=== PATIENT | male | born 1940 | race Caucasian/White ===

== ENCOUNTER → 2018-03-04 10:23 | Outpatient (CLI) | payer MEDICARE, OTHER, SELFPAY ==
--- NOTE | 2018-03-04 10:29 | DI.MRI.S_ITS ---
PROCEDURE: MR LUMBAR SPINE WO CON INDICATIONS: Lumbar pain TECHNIQUE: Noncontrast sagittal T1 spin echo and T2 fast echo, sagittal STIR, axial T1 and T2 fast spin echo through the lumbar spine. In cases with scoliosis, additional coronal T2 fast spin echo may be performed. COMPARISON: [facility], MR, L-SPINE W&WO CONTRAST, 07/18/2016, 11:13. [facility], MR, L-SPINE WITHOUT CONTRAST, 11/08/2015, 9:50. [facility], CR, L-SPINE 2-3 VIEWS, 10/04/2015, 12:43. FINDINGS: Image quality: Excellent. Alignment and Curvature: There is trace L2-L3, L3-L4 and L4 on L5 retrolisthesis. There is mild reversal lumbar spine curvature. Bone Marrow: Reactive endplate change is noted adjacent to the L2-L3, L3-L4, L4-L5 and L5-S1 discs. Chronic L2 compression fracture resulting in approximately 40% loss of normal intervertebral is stable compared to 07/18/16. Physiologic wedging of the L1 vertebral body is stable. No acute vertebral body compression fractures. Spinal Cord: Conus medullaris terminates at the L1-2 disc level. Visualized cord demonstrates normal signal and size. Paraspinous Soft Tissues: No paravertebral masses. Right renal cysts and left peripelvic renal cysts redemonstrated. L1-L2: Loss of disc signal. Mild, diffuse disc bulge. Mild bilateral facet hypertrophy. Mild narrowing of the central canal secondary to disc disease. Mild right neural foraminal narrowing secondary to disc and facet disease. No neural impingement. L2-L3: Loss of disc signal and height. Moderate, diffuse disc bulge. Mild bilateral facet hypertrophy. Moderate narrowing of the central canal secondary to disc disease and facet hypertrophy. Moderate bilateral neural foraminal narrowing secondary to disc and facet disease. No neural impingement. Postsurgical changes compatible with partial L2 laminectomy noted. L3-L4: Loss of disc signal and slight loss of disc height. Gvuf-mt-ruafokwf facet hypertrophy. Mild ligamentum flavum hypertrophy. Moderate narrowing of the central canal secondary to disc disease and posterior element hypertrophy. Moderate bilateral neural foraminal narrowing secondary to disc and facet disease. No neural impingement. L4-L5: Loss of disc signal and height. Moderate, diffuse disc bulge. Mild to moderate facet and mild ligamentum flavum hypertrophy. Uozroeas-yh-dzvluu narrowing of the central canal secondary to disc disease and posterior element hypertrophy. Severe right and ttexgghj-mh-yuqmfw left neural foraminal narrowing secondary to disc and facet disease with flattening deformity of the exiting right L4 nerve root. L5-S1: Loss of disc signal. Mild, diffuse disc bulge. Moderate bilateral facet hypertrophy. Mild narrowing of the central canal secondary to disc disease and facet hypertrophy. Severe bilateral neural foraminal narrowing secondary to disc and facet disease with flattening deformity exiting L5 nerve roots bilaterally. IMPRESSION: 1. Status post partial L3 laminectomy. 2. Multilevel degenerative disc disease. 3. Multilevel facet arthropathy. 4. Moderate to severe L4-L5 central canal narrowing. Moderate L2-L3 and L3-L4 central canal narrowing. Mild L1-L2 and L5-S1 central canal narrowing. 5. Severe bilateral L5-S1 neural foraminal narrowing. Severe right and anmxanwg-wv-slwnui left L4-L5 neural foraminal narrowing. Moderate bilateral L2-L3 and L3-L4 neural foraminal narrowing. Mild right L1-L2 neural foraminal narrowing. 6. Flattened deformity exiting right L4 nerve root and the exiting bilateral L5 nerve roots secondary to neural foraminal narrowing. Dictated by: Sarita Bay MD, PhD on 03/04/2018 at 14:26 Approved by: Sarita Bay MD, PhD on 03/04/2018 at 14:42
== END ==
PROVIDERS: Family Provider Transplant Surgery; PCP Family Medicine; Visit Provider Family Medicine
DX: M51.36 Other intervertebral disc degeneration, lumbar region (principal); M47.816 Spondylosis without myelopathy or radiculopathy, lumbar region; M99.73 Connective tissue and disc stenosis of intervertebral foramina of lumbar region
CPT/HCPCS: 72148

== ENCOUNTER 2019-02-09 14:30 | Outpatient (RCR) | payer MEDICARE, OTHER, SELFPAY ==
--- NOTE | 2018-09-22 16:41 | PT.OPPOC ---
Current Diagnoses Radiculopathy, lumbar region (09/16/18) Provider Visit Care Team Role Provider Type Carolina Dang DO Primary Care Provider Physician Specialty: Family Practice Address: [address] [place], [address] Email: [email or web address] Chris Fallon MD Family Provider Non-Staff Specialty: Urology Address: [address], [address] Email: Doctor Cecil MD Attending Provider Non-Staff Specialty: Medical Address: Phone: Fax: Email: Plan Of Care PT-OP-T Assessment and Plan Start: 09/16/18 11:20 Freq: Status: Active Protocol: Document 09/16/18 11:20 SAK (Rec: 09/22/18 15:13 SAK [id number]) Physical Therapy Assessment Rehab Potential Rehabilitation Potential Good Evaluation Complexity Number of Personal Factors/Comorbidities 3 or More Number of Body Systems Impaired 3 Clinical Presentation at Evaluation Evolving Impairments Impairments Activity Tolerance Gait Pain Strength Goals Strength Impairment weakness core and hips Short Term Goal (STG) Initiate therapeutic exercise program STG Duration 2 wks Prison Goal (LTG) Improve strength to at least 4 +/5 throughout trunk and LE's LTG Duration 3 months Pain Impairment Pain level 7/10 Short Term Goal (STG) Decrease pain to no greater than 5/10 STG Duration 6 wks Installation Engineer Goal (LTG) Decrease pain to no greater than 3/10 LTG Duration 3 months Gait Impairment Requires use of walker, unable to walk community distances Short Term Goal (STG) Able to ambulate with straight cane short community distances STG Duration 6 wks Installation Engineer Goal (LTG) Patient able to ambulate without device for community distances. LTG Duration 3 months Activity tolerance Impairment Oswestery disability index score 52% Prison Goal (LTG) Decrease Oswestry score to no greater than 30% LTG Duration 3 months Assessment Summary Assessment Patient presents with decline in status and increase in pain s/p lumbar surgery. He has limitations in ROM and strength in trunk and LE's. He would benefit from skilled physical therapy to decrease his pain and improve his ROM, strength, and activity tolerance. Physical Therapy Plan Frequency and Duration Frequency of Treatment 2x/Week Duration of Treatment 3 months Plan of Care Start Date 09/16/18 Plan of Care End Date 01/14/19 Therapeutic Interventions Therapeutic Interventions Aquatic Therapy Home Exercise Program Manual Therapy Neuromuscular Re-education Patient/Caregiver Education Self-Care/Home Management Soft Tissue Mobilization Taping Therapeutic Activities Therapeutic Exercises Modalities Cold Pack/Ice Massage Electric Stimulation Hot Packs Iontophoresis Ultrasound Next Visit Focus/Plan Next Note Type Treatment Note Next Visit Plan Assess response to first PT treatment. Initiate gentle core stabilization, strengthening, flexibility exercises. End with modalities for pain managment. Plan of Care Dates Plan of Care Start Date 09/16/18 Plan of Care End Date 01/14/19 Please Sign and Return: I have reviewed this Plan of Care and certify that the skilled therapy services above are required to meet the patient?s needs. Physician Signature Date Printed Name and Credentials Clinical Instructor Signature Printed Name and Credentials
--- NOTE | 2018-09-22 16:41 | PT.OIE ---
Current Diagnoses Radiculopathy, lumbar region (09/16/18) Past Medical History (Last Updated 05/25/18 @ 13:34 by Jacqui Elizabeth LPN) Thoracic aortic aneurysm (Acute) BPH (benign prostatic hyperplasia) (Chronic) Cervical spine disease (Chronic) Chronic neck pain (Chronic) Coronary artery disease (Chronic) GERD (gastroesophageal reflux disease) (Chronic) Hypertension (Chronic) Atrial fibrillation (Resolved ~1993) Bladder cancer (Resolved) Myocardial infarction (Resolved 1978) Past Surgical History (Last Updated 05/25/18 @ 13:34 by Jacqui Elizabeth LPN) History of abdominal aortic aneurysm repair (Resolved ~2006) Hx of cervical discectomy (Resolved) Hx of coronary artery bypass graft (Resolved ~1980) Hx of laminectomy (Resolved ~04/2016) Hx of transurethral resection of prostate (Resolved) S/P carotid endarterectomy (Resolved ~1990) Provider Visit Care Team Role Provider Type Carolina Dang DO Primary Care Provider Physician Specialty: Family Practice Address: [address] [place] [address], [address] Email: [email or web address] Chris Fallon MD Family Provider Non-Staff Specialty: Urology Address: [address] [place] [address], [id number] Email: Doctor Cecil MD Attending Provider Non-Staff Specialty: Medical Address: Phone: Fax: Email: Physical Therapy Initial Evaluation PT-OP-A Visit Information Start: 09/16/18 11:20 Freq: Status: Active Protocol: Document 09/16/18 11:20 SAK (Rec: 09/16/18 11:22 SAK [id number]) Out-Patient Physical Therapy Visit Information Visit Information Visit Type Initial Evaluation PT-OP-B Current Condition Start: 09/16/18 11:20 Freq: Status: Active Protocol: Document 09/16/18 11:20 SAK (Rec: 09/16/18 11:40 SAK [id number]) Current Condition History of Current Condition Onset Date 07/20/18 Current Complaints bilateral LBP, right great toe numbness History of Current Condition L4-5 medial facetectomy and foraminotomy; reports it was supposed to be day surgery, but had possible CT at end of surgery (controversy over whether had CT vs reaction to medication) but reports hypertensive when coming out of anesthetic. Has not been doing well, pain worse than prior to surgery. States now physician stating he needs right MICHELLE; has seen surgeon but nothing scheduled yet. States he is uncertain about hip surgery both due to feeling most of his pain from back and concern over his recent response to surgery. Walks better with walker; states he limps without use of walker. Some numbness right great toe. Pain worse with standing and walking, minimal with sitting. Takes 2-3 Hydrocodone per day; 1 at a time. Unable to go for walks or golf as previoiusly Prior Treatments and Tests Using heat at home, trying to walk Future Testing and Treatments Planned Sees pain clinic next week to set up appointment for nerve block. Treatment Goals Patient/Caregiver Goals Decrease pain and resume prior activities. 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 PT-OP-F Manual Assessment Start: 09/16/18 11:20 Freq: Status: Active Protocol: Document 09/16/18 11:20 SAK (Rec: 09/22/18 16:40 [facility] [id number]) Manual Assessments Soft Tissue Assessment Soft Tissue Mobility Assessment Increased soft tissue tightness bilateral lumbar paraspinals PT-OP-G Mobility & Gait Start: 09/16/18 11:20 Freq: Status: Active Protocol: Document 09/16/18 11:20 SAK (Rec: 09/22/18 16:40 [facility] [id number]) OP Gait Assessment Assistive Devices Assistive Device Front Wheeled Walker Gait Deviations General Gait Pattern Antalgic Decreased Stride Length Decreased Feet Clearance Flexed Trunk Factors Limiting Gait Function Factors Limiting Gait Function Decreased Activity Tolerance Pain PT-OP-H Neuro Start: 09/16/18 11:20 Freq: Status: Active Protocol: Document 09/16/18 11:20 SAK (Rec: 09/22/18 16:40 [facility] [id number]) Sensation Evaluation Comments Summary Comments decreased to LT right great toe PT-OP-J Posture/Palpation/Skin Start: 09/16/18 11:20 Freq: Status: Active Protocol: Document 09/16/18 11:20 SAK (Rec: 09/22/18 16:40 [facility] [id number]) Posture Evaluation Position Standing Head/C-Spine Posture Forward Head T-Spine Posture Increased Kyphosis L-Spine Posture Decreased Lordosis Weight Distribution Decreased Wt.Bear on (R) Hip Posture (L) Externally Rotated (R) Externally Rotated Skin Assessment Incisional Assessment Incision Appearance/Comments Well-healed with no signs or symptoms of infaction PT-OP-K Range of Motion Start: 09/16/18 11:20 Freq: Status: Active Protocol: Document 09/16/18 11:20 SAK (Rec: 09/22/18 16:40 [facility] [id number]) Lumbar Spine Range of Motion Lumbar Spine Active Degrees Flexion 80 Rotation Left 15 Rotation Right 15 Lateral Flexion Left 30 Lateral Flexion Right 30 Comments -5 deg ext with c/o increased pain Hip Goniometric Range of Motion Hip Measured in Degrees Left Flexion w/Knee Flexed 105 Straight Leg Raise 45 Extension 0 Internal Rotation 25 External Rotation 70 Right Flexion w/Knee Flexed 110 Straight Leg Raise 45 Extension 0 Internal Rotation 15 External Rotation 20 PT-OP-M Strength Start: 09/16/18 11:20 Freq: Status: Active Protocol: Document 09/16/18 11:20 SAK (Rec: 09/22/18 16:40 [facility] [id number]) Trunk Strength Trunk Manual Muscle Testing Core Stabilization Poor core stabilization, difficulty activating TrA and multifidi. Knee Strength Knee Manual Muscle Testing Left Flexion (S2) 5 Normal Extension (L3) 5 Normal Right Flexion (S2) 5 Normal Extension (L3) 5 Normal Ankle/Foot Strength Ankle and Foot Manual Muscle Testing Left Dorsiflexion (L4) 4+ Good+ Plantarflexion (S1) 4+ Good+ Right Dorsiflexion (L4) 4+ Good+ Plantarflexion (S1) 4+ Good+ Toe Strength Toe Manual Muscle Testing Left Great Toe Extension 4+ Good+ Right Great Toe Extension 4- Good- PT-OP-Q Treatments Start: 09/16/18 11:20 Freq: Status: Active Protocol: Document 09/16/18 11:20 SAK (Rec: 09/16/18 16:32 [facility] [id number]) Self-Care/Home Management Treatment Education Patient Education Body Mechanics Pain Management Posture Other Education No bending, lifting, twisting. PT-OP-R Modalities Start: 09/16/18 11:20 Freq: Status: Active Protocol: Document 09/16/18 11:20 [facility] (Rec: 09/16/18 16:32 [facility] [id number]) Electric Stimulation Electric Stimulation Interferential Current (IFC) Body Location bilateral lumbar paraspinals Duration (Minutes) 15 Target/Sweep Sweep High/Low High Patient Position Sitting Combined With Heat/Cold Hot Pack Ultrasound Therapy Treatment Back Treatment Duration (minutes) 8 Patient Position Sidelying Coupling Medium Ultrasound Gel Frequency Setting (mHz) 1 Mode Setting Continuous Duty Cycle 100% Intensity Setting (w/cm2) 1.4 Comments bilateral lumbar paraspinals PT-OP-T Assessment and Plan Start: 09/16/18 11:20 Freq: Status: Active Protocol: Document 09/16/18 11:20 [facility] (Rec: 09/22/18 15:13 [facility] [id number]) Physical Therapy Assessment Rehab Potential Rehabilitation Potential Good Evaluation Complexity Number of Personal Factors/Comorbidities 3 or More Number of Body Systems Impaired 3 Clinical Presentation at Evaluation Evolving Impairments Impairments Activity Tolerance Gait Pain Strength Goals Strength Impairment weakness core and hips Short Term Goal (STG) Initiate therapeutic exercise program STG Duration 2 wks Snf Goal (LTG) Improve strength to at least 4 +/5 throughout trunk and LE's LTG Duration 3 months Pain Impairment Pain level 7/10 Short Term Goal (STG) Decrease pain to no greater than 5/10 STG Duration 6 wks Snf Goal (LTG) Decrease pain to no greater than 3/10 LTG Duration 3 months Gait Impairment Requires use of walker, unable to walk community distances Short Term Goal (STG) Able to ambulate with straight cane short community distances STG Duration 6 wks Scrap Dealer Goal (LTG) Patient able to ambulate without device for community distances. LTG Duration 3 months Activity tolerance Impairment Oswestery disability index score 52% Snf Goal (LTG) Decrease Oswestry score to no greater than 30% LTG Duration 3 months Assessment Summary Assessment Patient presents with decline in status and increase in pain s/p lumbar surgery. He has limitations in ROM and strength in trunk and LE's. He would benefit from skilled physical therapy to decrease his pain and improve his ROM, strength, and activity tolerance. Physical Therapy Plan Frequency and Duration Frequency of Treatment 2x/Week Duration of Treatment 3 months Plan of Care Start Date 09/16/18 Plan of Care End Date 01/14/19 Therapeutic Interventions Therapeutic Interventions Aquatic Therapy Home Exercise Program Manual Therapy Neuromuscular Re-education Patient/Caregiver Education Self-Care/Home Management Soft Tissue Mobilization Taping Therapeutic Activities Therapeutic Exercises Modalities Cold Pack/Ice Massage Electric Stimulation Hot Packs Iontophoresis Ultrasound Next Visit Focus/Plan Next Note Type Treatment Note Next Visit Plan Assess response to first PT treatment. Initiate gentle core stabilization, strengthening, flexibility exercises. End with modalities for pain managment.
--- NOTE | 2018-09-28 16:01 | PT.OTN ---
Current Diagnoses Radiculopathy, lumbar region (09/28/18) Physical Therapy Treatment Note PT-OP-A Visit Information Start: 09/16/18 11:20 Freq: Status: Active Protocol: Document 09/28/18 11:18 [facility] (Rec: 09/28/18 15:58 [facility] [id number]) Out-Patient Physical Therapy Visit Information Visit Information Visit Type Treatment Note Visit Start Time 11:15 Visit Stop Time 12:00 Total Visit Minutes 45 Visit Number 2 Number of UTILITY DIVISION PROJECT MANAGER Visits 0 Precautions Precautions cardiac history PT-OP-B Current Condition Start: 09/16/18 11:20 Freq: Status: Active Protocol: Document 09/16/18 11:20 [facility] (Rec: 09/16/18 11:40 [facility] [id number]) Current Condition History of Current Condition Onset Date 07/20/18 Current Complaints bilateral LBP, right great toe numbness History of Current Condition L4-5 medial facetectomy and foraminotomy; reports it was supposed to be day surgery, but had possible [place] at end of surgery (controversy over whether had [place] vs reaction to medication) but reports hypertensive when coming out of anesthetic. Has not been doing well, pain worse than prior to surgery. States now physician stating he needs right MICHELLE; has seen surgeon but nothing scheduled yet. States he is uncertain about hip surgery both due to feeling most of his pain from back and concern over his recent response to surgery. Walks better with walker; states he limps without use of walker. Some numbness right great toe. Pain worse with standing and walking, minimal with sitting. Takes 2-3 Hydrocodone per day; 1 at a time. Unable to go for walks or golf as previoiusly Prior Treatments and Tests Using heat at home, trying to walk Future Testing and Treatments Planned Sees pain clinic next week to set up appointment for nerve block. Treatment Goals Patient/Caregiver Goals Decrease pain and resume prior activities. 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 PT-OP-C Subjective Start: 09/16/18 11:20 Freq: Status: Active Protocol: Document 09/28/18 11:18 [facility] (Rec: 09/28/18 12:00 [facility] [id number]) OP-PT Subjective Patient Comments Patient Comments Yesterday was first day in months that he has had thigh and hip pain. Had stomach virus for 4 days. States he felt ok after first PT session . Sees pain clinic at in 3 days. PT-OP-F Manual Assessment Start: 09/16/18 11:20 Freq: Status: Active Protocol: Document 09/16/18 11:20 [facility] (Rec: 09/22/18 16:40 [facility] [id number]) Manual Assessments Soft Tissue Assessment Soft Tissue Mobility Assessment Increased soft tissue tightness bilateral lumbar paraspinals PT-OP-G Mobility & Gait Start: 09/16/18 11:20 Freq: Status: Active Protocol: Document 09/16/18 11:20 [facility] (Rec: 09/22/18 16:40 [facility] [id number]) OP Gait Assessment Assistive Devices Assistive Device Front Wheeled Walker Gait Deviations General Gait Pattern Antalgic Decreased Stride Length Decreased Feet Clearance Flexed Trunk Factors Limiting Gait Function Factors Limiting Gait Function Decreased Activity Tolerance Pain PT-OP-H Neuro Start: 09/16/18 11:20 Freq: Status: Active Protocol: Document 09/16/18 11:20 [facility] (Rec: 09/22/18 16:40 [facility] [id number]) Sensation Evaluation Comments Summary Comments decreased to LT right great toe PT-OP-J Posture/Palpation/Skin Start: 09/16/18 11:20 Freq: Status: Active Protocol: Document 09/16/18 11:20 [facility] (Rec: 09/22/18 16:40 [facility] [id number]) Posture Evaluation Position Standing Head/C-Spine Posture Forward Head T-Spine Posture Increased Kyphosis L-Spine Posture Decreased Lordosis Weight Distribution Decreased Wt.Bear on (R) Hip Posture (L) Externally Rotated (R) Externally Rotated Skin Assessment Incisional Assessment Incision Appearance/Comments Well-healed with no signs or symptoms of infaction PT-OP-K Range of Motion Start: 09/16/18 11:20 Freq: Status: Active Protocol: Document 09/16/18 11:20 [facility] (Rec: 09/22/18 16:40 [facility] [id number]) Lumbar Spine Range of Motion Lumbar Spine Active Degrees Flexion 80 Rotation Left 15 Rotation Right 15 Lateral Flexion Left 30 Lateral Flexion Right 30 Comments -5 deg ext with c/o increased pain Hip Goniometric Range of Motion Hip Measured in Degrees Left Flexion w/Knee Flexed 105 Straight Leg Raise 45 Extension 0 Internal Rotation 25 External Rotation 70 Right Flexion w/Knee Flexed 110 Straight Leg Raise 45 Extension 0 Internal Rotation 15 External Rotation 20 PT-OP-M Strength Start: 09/16/18 11:20 Freq: Status: Active Protocol: Document 09/16/18 11:20 [facility] (Rec: 09/22/18 16:40 [facility] [id number]) Trunk Strength Trunk Manual Muscle Testing Core Stabilization Poor core stabilization, difficulty activating TrA and multifidi. Knee Strength Knee Manual Muscle Testing Left Flexion (S2) 5 Normal Extension (L3) 5 Normal Right Flexion (S2) 5 Normal Extension (L3) 5 Normal Ankle/Foot Strength Ankle and Foot Manual Muscle Testing Left Dorsiflexion (L4) 4+ Good+ Plantarflexion (S1) 4+ Good+ Right Dorsiflexion (L4) 4+ Good+ Plantarflexion (S1) 4+ Good+ Toe Strength Toe Manual Muscle Testing Left Great Toe Extension 4+ Good+ Right Great Toe Extension 4- Good- PT-OP-Q Treatments Start: 09/16/18 11:20 Freq: Status: Active Protocol: Document 09/28/18 11:18 [facility] (Rec: 09/28/18 12:00 [facility] [id number]) Cardio Equipment Recumbent Stepper (Sci-Fit) Duration (Minutes) 6 Resistance 1 Seat Position 16 Gym Equipment Shuttle Recovery Bilateral Squats Resistance 50 Shuttle Recovery Platform Stable Reps/Time 10x2 PT-OP-R Modalities Start: 09/16/18 11:20 Freq: Status: Active Protocol: Document 09/28/18 11:18 [facility] (Rec: 09/28/18 16:00 [facility] [id number]) Electric Stimulation Electric Stimulation Interferential Current (IFC) Body Location bilateral lumbar paraspinals Duration (Minutes) 15 Target/Sweep Sweep High/Low High Patient Position Sitting Combined With Heat/Cold Hot Pack Ultrasound Therapy Treatment Back Treatment Duration (minutes) 8 Patient Position Sidelying Coupling Medium Ultrasound Gel Frequency Setting (mHz) 1 Mode Setting Continuous Duty Cycle 100% Intensity Setting (w/cm2) 1.4 Comments bilateral lumbar paraspinals PT-OP-T Assessment and Plan Start: 09/16/18 11:20 Freq: Status: Active Protocol: Document 09/28/18 11:18 [facility] (Rec: 09/28/18 16:00 [facility] [id number]) Physical Therapy Assessment Goals Strength Impairment weakness core and hips Short Term Goal (STG) Initiate therapeutic exercise program STG Duration 2 wks Halfway Goal (LTG) Improve strength to at least 4 +/5 throughout trunk and LE's LTG Duration 3 months Pain Impairment Pain level 7/10 Short Term Goal (STG) Decrease pain to no greater than 5/10 STG Duration 6 wks Halfway Goal (LTG) Decrease pain to no greater than 3/10 LTG Duration 3 months Gait Impairment Requires use of walker, unable to walk community distances Short Term Goal (STG) Able to ambulate with straight cane short community distances STG Duration 6 wks Halfway Goal (LTG) Patient able to ambulate without device for community distances. LTG Duration 3 months Activity tolerance Impairment Oswestery disability index score 52% Halfway Goal (LTG) Decrease Oswestry score to no greater than 30% LTG Duration 3 months Assessment Summary Assessment Decrease pain after PT for a few hours. Physical Therapy Plan Frequency and Duration Frequency of Treatment 2x/Week Duration of Treatment 3 months Plan of Care Start Date 09/16/18 Plan of Care End Date 01/14/19 Therapeutic Interventions Therapeutic Interventions Aquatic Therapy Home Exercise Program Manual Therapy Neuromuscular Re-education Patient/Caregiver Education Self-Care/Home Management Soft Tissue Mobilization Taping Therapeutic Activities Therapeutic Exercises Modalities Cold Pack/Ice Massage Electric Stimulation Hot Packs Iontophoresis Ultrasound Next Visit Focus/Plan Next Note Type Treatment Note Next Visit Plan Continue PT for gentle progression of ther ex, modalities and manual therapy as needed for pain.
--- NOTE | 2018-10-05 15:58 | PT.OTN ---
Current Diagnoses Radiculopathy, lumbar region (10/05/18) Physical Therapy Treatment Note PT-OP-A Visit Information Start: 09/16/18 11:20 Freq: Status: Active Protocol: Document 10/05/18 08:11 [facility] (Rec: 10/05/18 08:50 [facility] [id number]) Out-Patient Physical Therapy Visit Information Visit Information Visit Type Treatment Note Visit Start Time 08:15 Visit Number 3 Number of SCOURING MACHINE OPERATOR Visits 0 Precautions Precautions cardiac history PT-OP-B Current Condition Start: 09/16/18 11:20 Freq: Status: Active Protocol: Document 09/16/18 11:20 [facility] (Rec: 09/16/18 11:40 [facility] [id number]) Current Condition History of Current Condition Onset Date 07/20/18 Current Complaints bilateral LBP, right great toe numbness History of Current Condition L4-5 medial facetectomy and foraminotomy; reports it was supposed to be day surgery, but had possible [place] at end of surgery (controversy over whether had [place] vs reaction to medication) but reports hypertensive when coming out of anesthetic. Has not been doing well, pain worse than prior to surgery. States now physician stating he needs right MICHELLE; has seen surgeon but nothing scheduled yet. States he is uncertain about hip surgery both due to feeling most of his pain from back and concern over his recent response to surgery. Walks better with walker; states he limps without use of walker. Some numbness right great toe. Pain worse with standing and walking, minimal with sitting. Takes 2-3 Hydrocodone per day; 1 at a time. Unable to go for walks or golf as previoiusly Prior Treatments and Tests Using heat at home, trying to walk Future Testing and Treatments Planned Sees pain clinic next week to set up appointment for nerve block. Treatment Goals Patient/Caregiver Goals Decrease pain and resume prior activities. 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 PT-OP-C Subjective Start: 09/16/18 11:20 Freq: Status: Active Protocol: Document 10/05/18 08:11 [facility] (Rec: 10/05/18 08:50 [facility] [id number]) OP-PT Subjective Patient Comments Patient Comments Went to pain clinic 10/01/18 Dr. Pandya; conflict between physicians over whether something needs to be done with his right hip. Standing and walking tolerance improving. PT-OP-F Manual Assessment Start: 09/16/18 11:20 Freq: Status: Active Protocol: Document 09/16/18 11:20 [facility] (Rec: 09/22/18 16:40 [facility] [id number]) Manual Assessments Soft Tissue Assessment Soft Tissue Mobility Assessment Increased soft tissue tightness bilateral lumbar paraspinals PT-OP-G Mobility & Gait Start: 09/16/18 11:20 Freq: Status: Active Protocol: Document 09/16/18 11:20 [facility] (Rec: 09/22/18 16:40 [facility] [id number]) OP Gait Assessment Assistive Devices Assistive Device Front Wheeled Walker Gait Deviations General Gait Pattern Antalgic Decreased Stride Length Decreased Feet Clearance Flexed Trunk Factors Limiting Gait Function Factors Limiting Gait Function Decreased Activity Tolerance Pain PT-OP-H Neuro Start: 09/16/18 11:20 Freq: Status: Active Protocol: Document 09/16/18 11:20 [facility] (Rec: 09/22/18 16:40 [facility] [id number]) Sensation Evaluation Comments Summary Comments decreased to LT right great toe PT-OP-J Posture/Palpation/Skin Start: 09/16/18 11:20 Freq: Status: Active Protocol: Document 09/16/18 11:20 [facility] (Rec: 09/22/18 16:40 [facility] [id number]) Posture Evaluation Position Standing Head/C-Spine Posture Forward Head T-Spine Posture Increased Kyphosis L-Spine Posture Decreased Lordosis Weight Distribution Decreased Wt.Bear on (R) Hip Posture (L) Externally Rotated (R) Externally Rotated Skin Assessment Incisional Assessment Incision Appearance/Comments Well-healed with no signs or symptoms of infaction PT-OP-K Range of Motion Start: 09/16/18 11:20 Freq: Status: Active Protocol: Document 09/16/18 11:20 [facility] (Rec: 09/22/18 16:40 [facility] [id number]) Lumbar Spine Range of Motion Lumbar Spine Active Degrees Flexion 80 Rotation Left 15 Rotation Right 15 Lateral Flexion Left 30 Lateral Flexion Right 30 Comments -5 deg ext with c/o increased pain Hip Goniometric Range of Motion Hip Measured in Degrees Left Flexion w/Knee Flexed 105 Straight Leg Raise 45 Extension 0 Internal Rotation 25 External Rotation 70 Right Flexion w/Knee Flexed 110 Straight Leg Raise 45 Extension 0 Internal Rotation 15 External Rotation 20 PT-OP-M Strength Start: 09/16/18 11:20 Freq: Status: Active Protocol: Document 09/16/18 11:20 [facility] (Rec: 09/22/18 16:40 [facility] [id number]) Trunk Strength Trunk Manual Muscle Testing Core Stabilization Poor core stabilization, difficulty activating TrA and multifidi. Knee Strength Knee Manual Muscle Testing Left Flexion (S2) 5 Normal Extension (L3) 5 Normal Right Flexion (S2) 5 Normal Extension (L3) 5 Normal Ankle/Foot Strength Ankle and Foot Manual Muscle Testing Left Dorsiflexion (L4) 4+ Good+ Plantarflexion (S1) 4+ Good+ Right Dorsiflexion (L4) 4+ Good+ Plantarflexion (S1) 4+ Good+ Toe Strength Toe Manual Muscle Testing Left Great Toe Extension 4+ Good+ Right Great Toe Extension 4- Good- PT-OP-Q Treatments Start: 09/16/18 11:20 Freq: Status: Active Protocol: Document 10/05/18 08:11 [facility] (Rec: 10/05/18 08:50 [facility] [id number]) Cardio Equipment Recumbent Stepper (Sci-Fit) Duration (Minutes) 8 Resistance 1.5 Seat Position 13 Gym Equipment Shuttle Recovery Unilateral Squats Resistance 37 Shuttle Recovery Platform Stable Reps/Time 10x2 Bilateral Squats Resistance 62 Shuttle Recovery Platform Stable Reps/Time 10x2 Therapeutic Exercises Supine Exercises HS stretch Reps/Minutes 2x Comments manual Sitting Exercises row, sh ext Equipment Used L1 TB Reps/Minutes 10x Standing Exercises heel raises Reps/Minutes 10x sidestepping Comments UE support PT-OP-R Modalities Start: 09/16/18 11:20 Freq: Status: Active Protocol: Document 10/05/18 08:11 [facility] (Rec: 10/05/18 08:50 [facility] [id number]) Electric Stimulation Electric Stimulation Interferential Current (IFC) Body Location bilateral lumbar paraspinals Duration (Minutes) 15 Target/Sweep Sweep High/Low High Patient Position Sitting Combined With Heat/Cold Hot Pack Ultrasound Therapy Treatment Back Treatment Duration (minutes) 8 Patient Position Sidelying Coupling Medium Ultrasound Gel Frequency Setting (mHz) 1 Mode Setting Continuous Duty Cycle 100% Intensity Setting (w/cm2) 1.4 Comments bilateral lumbar paraspinals PT-OP-T Assessment and Plan Start: 09/16/18 11:20 Freq: Status: Active Protocol: Document 10/05/18 08:11 [facility] (Rec: 10/05/18 08:50 [facility] [id number]) Physical Therapy Assessment Goals Strength Impairment weakness core and hips Short Term Goal (STG) Initiate therapeutic exercise program STG Duration 2 wks Shelter Goal (LTG) Improve strength to at least 4 +/5 throughout trunk and LE's LTG Duration 3 months Pain Impairment Pain level 7/10 Short Term Goal (STG) Decrease pain to no greater than 5/10 STG Duration 6 wks Shelter Goal (LTG) Decrease pain to no greater than 3/10 LTG Duration 3 months Gait Impairment Requires use of walker, unable to walk community distances Short Term Goal (STG) Able to ambulate with straight cane short community distances STG Duration 6 wks Manager Of Compensation Goal (LTG) Patient able to ambulate without device for community distances. LTG Duration 3 months Activity tolerance Impairment Oswestery disability index score 52% Shelter Goal (LTG) Decrease Oswestry score to no greater than 30% LTG Duration 3 months Physical Therapy Plan Frequency and Duration Frequency of Treatment 2x/Week Duration of Treatment 3 months Plan of Care Start Date 09/16/18 Plan of Care End Date 01/14/19 Therapeutic Interventions Therapeutic Interventions Aquatic Therapy Home Exercise Program Manual Therapy Neuromuscular Re-education Patient/Caregiver Education Self-Care/Home Management Soft Tissue Mobilization Taping Therapeutic Activities Therapeutic Exercises Modalities Cold Pack/Ice Massage Electric Stimulation Hot Packs Iontophoresis Ultrasound Next Visit Focus/Plan Next Note Type Progress Note Next Visit Plan Increase standing ther ex as tolerated for strengthening, core stab
--- NOTE | 2018-10-07 10:11 | PT.OTN ---
Current Diagnoses Radiculopathy, lumbar region (10/07/18) Physical Therapy Treatment Note PT-OP-A Visit Information Start: 09/16/18 11:20 Freq: Status: Active Protocol: Document 10/07/18 08:19 [facility] (Rec: 10/07/18 08:44 [facility] [id number]) Out-Patient Physical Therapy Visit Information Visit Information Visit Type Treatment Note Visit Start Time 08:15 Visit Stop Time 09:12 Total Visit Minutes 57 Visit Number 4 Number of CORRECTION OFFICER REFORMATORY Visits 0 Precautions Precautions cardiac history PT-OP-B Current Condition Start: 09/16/18 11:20 Freq: Status: Active Protocol: Document 09/16/18 11:20 [facility] (Rec: 09/16/18 11:40 [facility] [id number]) Current Condition History of Current Condition Onset Date 07/20/18 Current Complaints bilateral LBP, right great toe numbness History of Current Condition L4-5 medial facetectomy and foraminotomy; reports it was supposed to be day surgery, but had possible AK at end of surgery (controversy over whether had AK vs reaction to medication) but reports hypertensive when coming out of anesthetic. Has not been doing well, pain worse than prior to surgery. States now physician stating he needs right MICHELLE; has seen surgeon but nothing scheduled yet. States he is uncertain about hip surgery both due to feeling most of his pain from back and concern over his recent response to surgery. Walks better with walker; states he limps without use of walker. Some numbness right great toe. Pain worse with standing and walking, minimal with sitting. Takes 2-3 Hydrocodone per day; 1 at a time. Unable to go for walks or golf as previoiusly Prior Treatments and Tests Using heat at home, trying to walk Future Testing and Treatments Planned Sees pain clinic next week to set up appointment for nerve block. Treatment Goals Patient/Caregiver Goals Decrease pain and resume prior activities. 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 PT-OP-C Subjective Start: 09/16/18 11:20 Freq: Status: Active Protocol: Document 10/07/18 08:19 [facility] (Rec: 10/07/18 08:44 [facility] [id number]) OP-PT Subjective Patient Comments Patient Comments Patient c/o fatigue, difficulty standing straight. PT-OP-F Manual Assessment Start: 09/16/18 11:20 Freq: Status: Active Protocol: Document 09/16/18 11:20 [facility] (Rec: 09/22/18 16:40 [facility] [id number]) Manual Assessments Soft Tissue Assessment Soft Tissue Mobility Assessment Increased soft tissue tightness bilateral lumbar paraspinals PT-OP-G Mobility & Gait Start: 09/16/18 11:20 Freq: Status: Active Protocol: Document 09/16/18 11:20 [facility] (Rec: 09/22/18 16:40 [facility] [id number]) OP Gait Assessment Assistive Devices Assistive Device Front Wheeled Walker Gait Deviations General Gait Pattern Antalgic Decreased Stride Length Decreased Feet Clearance Flexed Trunk Factors Limiting Gait Function Factors Limiting Gait Function Decreased Activity Tolerance Pain PT-OP-H Neuro Start: 09/16/18 11:20 Freq: Status: Active Protocol: Document 09/16/18 11:20 [facility] (Rec: 09/22/18 16:40 [facility] [id number]) Sensation Evaluation Comments Summary Comments decreased to LT right great toe PT-OP-J Posture/Palpation/Skin Start: 09/16/18 11:20 Freq: Status: Active Protocol: Document 09/16/18 11:20 [facility] (Rec: 09/22/18 16:40 [facility] [id number]) Posture Evaluation Position Standing Head/C-Spine Posture Forward Head T-Spine Posture Increased Kyphosis L-Spine Posture Decreased Lordosis Weight Distribution Decreased Wt.Bear on (R) Hip Posture (L) Externally Rotated (R) Externally Rotated Skin Assessment Incisional Assessment Incision Appearance/Comments Well-healed with no signs or symptoms of infaction PT-OP-K Range of Motion Start: 09/16/18 11:20 Freq: Status: Active Protocol: Document 09/16/18 11:20 [facility] (Rec: 09/22/18 16:40 [facility] [id number]) Lumbar Spine Range of Motion Lumbar Spine Active Degrees Flexion 80 Rotation Left 15 Rotation Right 15 Lateral Flexion Left 30 Lateral Flexion Right 30 Comments -5 deg ext with c/o increased pain Hip Goniometric Range of Motion Hip Measured in Degrees Left Flexion w/Knee Flexed 105 Straight Leg Raise 45 Extension 0 Internal Rotation 25 External Rotation 70 Right Flexion w/Knee Flexed 110 Straight Leg Raise 45 Extension 0 Internal Rotation 15 External Rotation 20 PT-OP-M Strength Start: 09/16/18 11:20 Freq: Status: Active Protocol: Document 09/16/18 11:20 [facility] (Rec: 09/22/18 16:40 [facility] [id number]) Trunk Strength Trunk Manual Muscle Testing Core Stabilization Poor core stabilization, difficulty activating TrA and multifidi. Knee Strength Knee Manual Muscle Testing Left Flexion (S2) 5 Normal Extension (L3) 5 Normal Right Flexion (S2) 5 Normal Extension (L3) 5 Normal Ankle/Foot Strength Ankle and Foot Manual Muscle Testing Left Dorsiflexion (L4) 4+ Good+ Plantarflexion (S1) 4+ Good+ Right Dorsiflexion (L4) 4+ Good+ Plantarflexion (S1) 4+ Good+ Toe Strength Toe Manual Muscle Testing Left Great Toe Extension 4+ Good+ Right Great Toe Extension 4- Good- PT-OP-Q Treatments Start: 09/16/18 11:20 Freq: Status: Active Protocol: Document 10/07/18 08:19 [facility] (Rec: 10/07/18 08:44 [facility] [id number]) Cardio Equipment Recumbent Stepper (Sci-Fit) Duration (Minutes) 10 Resistance 1.5 Seat Position 13 Gym Equipment Shuttle Recovery Unilateral Squats Resistance 37 Shuttle Recovery Platform Stable Reps/Time 10x2 Bilateral Squats Resistance 62 Shuttle Recovery Platform Stable Reps/Time 10x2 Therapeutic Exercises Sitting Exercises row, sh ext Equipment Used L1 TB Reps/Minutes 10x Standing Exercises shallow squat Reps/Minutes 10x heel raises Reps/Minutes 10x sidestepping Equipment Used yellow TB Comments UE support PT-OP-R Modalities Start: 09/16/18 11:20 Freq: Status: Active Protocol: Document 10/07/18 08:19 [facility] (Rec: 10/07/18 10:11 [facility] [id number]) Electric Stimulation Electric Stimulation Interferential Current (IFC) Body Location bilateral lumbar paraspinals Duration (Minutes) 15 Target/Sweep Sweep High/Low High Patient Position Sitting Combined With Heat/Cold Hot Pack Ultrasound Therapy Treatment Back Treatment Duration (minutes) 8 Patient Position Sidelying Coupling Medium Ultrasound Gel Frequency Setting (mHz) 1 Mode Setting Continuous Duty Cycle 100% Intensity Setting (w/cm2) 1.4 Comments bilateral lumbar paraspinals PT-OP-T Assessment and Plan Start: 09/16/18 11:20 Freq: Status: Active Protocol: Document 10/07/18 08:19 [facility] (Rec: 10/07/18 10:11 [facility] [id number]) Physical Therapy Assessment Goals Strength Impairment weakness core and hips Short Term Goal (STG) Initiate therapeutic exercise program STG Duration 2 wks Mcc Goal (LTG) Improve strength to at least 4 +/5 throughout trunk and LE's LTG Duration 3 months Pain Impairment Pain level 7/10 Short Term Goal (STG) Decrease pain to no greater than 5/10 STG Duration 6 wks Mcc Goal (LTG) Decrease pain to no greater than 3/10 LTG Duration 3 months Gait Impairment Requires use of walker, unable to walk community distances Short Term Goal (STG) Able to ambulate with straight cane short community distances STG Duration 6 wks Intelligence Support Officer Goal (LTG) Patient able to ambulate without device for community distances. LTG Duration 3 months Activity tolerance Impairment Oswestery disability index score 52% Intelligence Support Officer Goal (LTG) Decrease Oswestry score to no greater than 30% LTG Duration 3 months Assessment Summary Assessment Patient requires cues for decreasing use of walker and correction of posture to more upright; today noting increased leaning forward putting increased pressure on walker. Patient reports increased pain without use of walker. Physical Therapy Plan Frequency and Duration Frequency of Treatment 2x/Week Duration of Treatment 3 months Plan of Care Start Date 09/16/18 Plan of Care End Date 01/14/19 Therapeutic Interventions Therapeutic Interventions Aquatic Therapy Home Exercise Program Manual Therapy Neuromuscular Re-education Patient/Caregiver Education Self-Care/Home Management Soft Tissue Mobilization Taping Therapeutic Activities Therapeutic Exercises Modalities Cold Pack/Ice Massage Electric Stimulation Hot Packs Iontophoresis Ultrasound Next Visit Focus/Plan Next Note Type Progress Note Next Visit Plan Increase standing ther ex as tolerated for strengthening, core stab, gait training.
--- NOTE | 2018-10-28 10:11 | PT.OTN ---
Current Diagnoses Radiculopathy, lumbar region (10/27/18) Physical Therapy Treatment Note PT-OP-A Visit Information Start: 09/16/18 11:20 Freq: Status: Active Protocol: Document 10/27/18 08:15 [facility] (Rec: 10/27/18 09:06 [facility] [id number]) Out-Patient Physical Therapy Visit Information Visit Information Visit Type Treatment Note Visit Start Time 08:15 Visit Stop Time 09:12 Total Visit Minutes 57 Visit Number 5 Number of LOADING CHECKER Visits 0 Precautions Precautions cardiac history PT-OP-B Current Condition Start: 09/16/18 11:20 Freq: Status: Active Protocol: Document 09/16/18 11:20 [facility] (Rec: 09/16/18 11:40 [facility] [id number]) Current Condition History of Current Condition Onset Date 07/20/18 Current Complaints bilateral LBP, right great toe numbness History of Current Condition L4-5 medial facetectomy and foraminotomy; reports it was supposed to be day surgery, but had possible HI at end of surgery (controversy over whether had HI vs reaction to medication) but reports hypertensive when coming out of anesthetic. Has not been doing well, pain worse than prior to surgery. States now physician stating he needs right MICHELLE; has seen surgeon but nothing scheduled yet. States he is uncertain about hip surgery both due to feeling most of his pain from back and concern over his recent response to surgery. Walks better with walker; states he limps without use of walker. Some numbness right great toe. Pain worse with standing and walking, minimal with sitting. Takes 2-3 Hydrocodone per day; 1 at a time. Unable to go for walks or golf as previoiusly Prior Treatments and Tests Using heat at home, trying to walk Future Testing and Treatments Planned Sees pain clinic next week to set up appointment for nerve block. Treatment Goals Patient/Caregiver Goals Decrease pain and resume prior activities. 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 PT-OP-C Subjective Start: 09/16/18 11:20 Freq: Status: Active Protocol: Document 10/27/18 08:15 [facility] (Rec: 10/27/18 09:06 [facility] [id number]) OP-PT Subjective Patient Comments Patient Comments Tired, poor sleep last night, having right hip pain. Got new walker, needs help with fit. Pain clinic at for injection. Frustrated with continued pain. PT-OP-F Manual Assessment Start: 09/16/18 11:20 Freq: Status: Active Protocol: Document 09/16/18 11:20 [facility] (Rec: 09/22/18 16:40 [facility] [id number]) Manual Assessments Soft Tissue Assessment Soft Tissue Mobility Assessment Increased soft tissue tightness bilateral lumbar paraspinals PT-OP-G Mobility & Gait Start: 09/16/18 11:20 Freq: Status: Active Protocol: Document 09/16/18 11:20 [facility] (Rec: 09/22/18 16:40 [facility] [id number]) OP Gait Assessment Assistive Devices Assistive Device Front Wheeled Walker Gait Deviations General Gait Pattern Antalgic Decreased Stride Length Decreased Feet Clearance Flexed Trunk Factors Limiting Gait Function Factors Limiting Gait Function Decreased Activity Tolerance Pain PT-OP-H Neuro Start: 09/16/18 11:20 Freq: Status: Active Protocol: Document 09/16/18 11:20 [facility] (Rec: 09/22/18 16:40 [facility] [id number]) Sensation Evaluation Comments Summary Comments decreased to LT right great toe PT-OP-J Posture/Palpation/Skin Start: 09/16/18 11:20 Freq: Status: Active Protocol: Document 09/16/18 11:20 [facility] (Rec: 09/22/18 16:40 [facility] [id number]) Posture Evaluation Position Standing Head/C-Spine Posture Forward Head T-Spine Posture Increased Kyphosis L-Spine Posture Decreased Lordosis Weight Distribution Decreased Wt.Bear on (R) Hip Posture (L) Externally Rotated (R) Externally Rotated Skin Assessment Incisional Assessment Incision Appearance/Comments Well-healed with no signs or symptoms of infaction PT-OP-K Range of Motion Start: 09/16/18 11:20 Freq: Status: Active Protocol: Document 09/16/18 11:20 [facility] (Rec: 09/22/18 16:40 [facility] [id number]) Lumbar Spine Range of Motion Lumbar Spine Active Degrees Flexion 80 Rotation Left 15 Rotation Right 15 Lateral Flexion Left 30 Lateral Flexion Right 30 Comments -5 deg ext with c/o increased pain Hip Goniometric Range of Motion Hip Measured in Degrees Left Flexion w/Knee Flexed 105 Straight Leg Raise 45 Extension 0 Internal Rotation 25 External Rotation 70 Right Flexion w/Knee Flexed 110 Straight Leg Raise 45 Extension 0 Internal Rotation 15 External Rotation 20 PT-OP-M Strength Start: 09/16/18 11:20 Freq: Status: Active Protocol: Document 09/16/18 11:20 [facility] (Rec: 09/22/18 16:40 [facility] [id number]) Trunk Strength Trunk Manual Muscle Testing Core Stabilization Poor core stabilization, difficulty activating TrA and multifidi. Knee Strength Knee Manual Muscle Testing Left Flexion (S2) 5 Normal Extension (L3) 5 Normal Right Flexion (S2) 5 Normal Extension (L3) 5 Normal Ankle/Foot Strength Ankle and Foot Manual Muscle Testing Left Dorsiflexion (L4) 4+ Good+ Plantarflexion (S1) 4+ Good+ Right Dorsiflexion (L4) 4+ Good+ Plantarflexion (S1) 4+ Good+ Toe Strength Toe Manual Muscle Testing Left Great Toe Extension 4+ Good+ Right Great Toe Extension 4- Good- PT-OP-Q Treatments Start: 09/16/18 11:20 Freq: Status: Active Protocol: Document 10/27/18 08:15 [facility] (Rec: 10/27/18 09:06 [facility] [id number]) Cardio Equipment Recumbent Stepper (Sci-Fit) Duration (Minutes) 10 Resistance 2.0 Seat Position 13 Gym Equipment Shuttle Recovery Unilateral Squats Resistance 37 Shuttle Recovery Platform Stable Reps/Time 10x2 Bilateral Squats Resistance 62 Shuttle Recovery Platform Stable Reps/Time 10x2 Therapeutic Exercises Supine Exercises SKTC Reps/Minutes 2x gluteal sets Reps/Minutes 10x hip ab/ER Reps/Minutes 10x pillow squeeze Reps/Minutes 10x abdominal corseting Reps/Minutes 5x HS stretch Reps/Minutes 3x Comments active Sidelying Exercises clamshell Reps/Minutes 10x Sitting Exercises row, sh ext Equipment Used L1 TB Reps/Minutes 10x Self-Care/Home Management Treatment Education Patient Education Body Mechanics Pain Management Posture Other Education updated HEP PT-OP-R Modalities Start: 09/16/18 11:20 Freq: Status: Active Protocol: Document 10/27/18 08:15 [facility] (Rec: 10/28/18 10:11 [facility] [id number]) Electric Stimulation Electric Stimulation Interferential Current (IFC) Body Location bilateral lumbar paraspinals Duration (Minutes) 15 Target/Sweep Sweep High/Low High Patient Position Sitting Combined With Heat/Cold Hot Pack Ultrasound Therapy Treatment Back Treatment Duration (minutes) 8 Patient Position Sidelying Coupling Medium Ultrasound Gel Frequency Setting (mHz) 1 Mode Setting Continuous Duty Cycle 100% Intensity Setting (w/cm2) 1.4 Comments bilateral lumbar paraspinals PT-OP-T Assessment and Plan Start: 09/16/18 11:20 Freq: Status: Active Protocol: Document 10/27/18 08:15 [facility] (Rec: 10/28/18 10:11 [facility] [id number]) Physical Therapy Assessment Goals Strength Impairment weakness core and hips Short Term Goal (STG) Initiate therapeutic exercise program STG Duration 2 wks Cloth Cutter Goal (LTG) Improve strength to at least 4 +/5 throughout trunk and LE's LTG Duration 3 months Pain Impairment Pain level 7/10 Short Term Goal (STG) Decrease pain to no greater than 5/10 STG Duration 6 wks Snf Goal (LTG) Decrease pain to no greater than 3/10 LTG Duration 3 months Gait Impairment Requires use of walker, unable to walk community distances Short Term Goal (STG) Able to ambulate with straight cane short community distances STG Duration 6 wks Cloth Cutter Goal (LTG) Patient able to ambulate without device for community distances. LTG Duration 3 months Activity tolerance Impairment Oswestery disability index score 52% Snf Goal (LTG) Decrease Oswestry score to no greater than 30% LTG Duration 3 months Assessment Summary Assessment Fit patient with new 4WW with good fit achieved. Patient continues to have no pain while sitting but have low tolerance for standing and walking due to pain. Patient' s forward flexed posture causes increased tension in paraspinals contributing to his pain, but reports pain with attempts to achieve more neutral position. Poor compliance with HEP. Recommended aquatic PT to patient; he has previously not been receptive but due to persistent pain he is now receptive to trial. Physical Therapy Plan Frequency and Duration Frequency of Treatment 2x/Week Duration of Treatment 3 months Plan of Care Start Date 09/16/18 Plan of Care End Date 01/14/19 Therapeutic Interventions Therapeutic Interventions Aquatic Therapy Home Exercise Program Manual Therapy Neuromuscular Re-education Patient/Caregiver Education Self-Care/Home Management Soft Tissue Mobilization Taping Therapeutic Activities Therapeutic Exercises Modalities Cold Pack/Ice Massage Electric Stimulation Hot Packs Iontophoresis Ultrasound Next Visit Focus/Plan Next Note Type Treatment Note Next Visit Plan aquatic therapy, encourage increased HEP compliance, progress ther ex for strengthening, flexibility and core stabilization as tolerated.
--- NOTE | 2018-11-01 16:45 | PT.OTN ---
Current Diagnoses Radiculopathy, lumbar region (11/01/18) Physical Therapy Treatment Note PT-OP-A Visit Information Start: 09/16/18 11:20 Freq: Status: Active Protocol: Document 11/01/18 11:00 [facility] (Rec: 11/01/18 16:43 [facility] [id number]) Out-Patient Physical Therapy Visit Information Visit Information Visit Type Aquatic Treatment Note Visit Start Time 11:00 Visit Stop Time 11:45 Total Visit Minutes 45 Visit Number 6/10 Number of APPLICATIONS MANAGER Visits 0 PT-OP-B Current Condition Start: 09/16/18 11:20 Freq: Status: Active Protocol: Document 09/16/18 11:20 [facility] (Rec: 09/16/18 11:40 [facility] [id number]) Current Condition History of Current Condition Onset Date 07/20/18 Current Complaints bilateral LBP, right great toe numbness History of Current Condition L4-5 medial facetectomy and foraminotomy; reports it was supposed to be day surgery, but had possible ME at end of surgery (controversy over whether had ME vs reaction to medication) but reports hypertensive when coming out of anesthetic. Has not been doing well, pain worse than prior to surgery. States now physician stating he needs right MICHELLE; has seen surgeon but nothing scheduled yet. States he is uncertain about hip surgery both due to feeling most of his pain from back and concern over his recent response to surgery. Walks better with walker; states he limps without use of walker. Some numbness right great toe. Pain worse with standing and walking, minimal with sitting. Takes 2-3 Hydrocodone per day; 1 at a time. Unable to go for walks or golf as previoiusly Prior Treatments and Tests Using heat at home, trying to walk Future Testing and Treatments Planned Sees pain clinic next week to set up appointment for nerve block. Treatment Goals Patient/Caregiver Goals Decrease pain and resume prior activities. 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 PT-OP-C Subjective Start: 09/16/18 11:20 Freq: Status: Active Protocol: Document 11/01/18 11:43 [facility]AK (Rec: 11/01/18 16:44 [facility] [id number]) OP-PT Subjective Patient Comments Patient Comments a little apprehensive about aquatic therapy but willing to give it a try. Patient Questionnaires ABC- Activity Specific Balance Confidence Scale ABC Functional Impairment 60 to <80% Impaired (Score 21- 40) PT-OP-F Manual Assessment Start: 09/16/18 11:20 Freq: Status: Active Protocol: Document 09/16/18 11:20 [facility]AK (Rec: 09/22/18 16:40 [facility] [id number]) Manual Assessments Soft Tissue Assessment Soft Tissue Mobility Assessment Increased soft tissue tightness bilateral lumbar paraspinals PT-OP-G Mobility & Gait Start: 09/16/18 11:20 Freq: Status: Active Protocol: Document 09/16/18 11:20 [facility]AK (Rec: 09/22/18 16:40 [facility] [id number]) OP Gait Assessment Assistive Devices Assistive Device Front Wheeled Walker Gait Deviations General Gait Pattern Antalgic Decreased Stride Length Decreased Feet Clearance Flexed Trunk Factors Limiting Gait Function Factors Limiting Gait Function Decreased Activity Tolerance Pain PT-OP-H Neuro Start: 09/16/18 11:20 Freq: Status: Active Protocol: Document 09/16/18 11:20 [facility] (Rec: 09/22/18 16:40 [facility] [id number]) Sensation Evaluation Comments Summary Comments decreased to LT right great toe PT-OP-J Posture/Palpation/Skin Start: 09/16/18 11:20 Freq: Status: Active Protocol: Document 09/16/18 11:20 [facility]AK (Rec: 09/22/18 16:40 [facility] [id number]) Posture Evaluation Position Standing Head/C-Spine Posture Forward Head T-Spine Posture Increased Kyphosis L-Spine Posture Decreased Lordosis Weight Distribution Decreased Wt.Bear on (R) Hip Posture (L) Externally Rotated (R) Externally Rotated Skin Assessment Incisional Assessment Incision Appearance/Comments Well-healed with no signs or symptoms of infaction PT-OP-K Range of Motion Start: 09/16/18 11:20 Freq: Status: Active Protocol: Document 09/16/18 11:20 [facility]AK (Rec: 09/22/18 16:40 [facility] [id number]) Lumbar Spine Range of Motion Lumbar Spine Active Degrees Flexion 80 Rotation Left 15 Rotation Right 15 Lateral Flexion Left 30 Lateral Flexion Right 30 Comments -5 deg ext with c/o increased pain Hip Goniometric Range of Motion Hip Measured in Degrees Left Flexion w/Knee Flexed 105 Straight Leg Raise 45 Extension 0 Internal Rotation 25 External Rotation 70 Right Flexion w/Knee Flexed 110 Straight Leg Raise 45 Extension 0 Internal Rotation 15 External Rotation 20 PT-OP-M Strength Start: 09/16/18 11:20 Freq: Status: Active Protocol: Document 09/16/18 11:20 [facility] (Rec: 09/22/18 16:40 [facility] [id number]) Trunk Strength Trunk Manual Muscle Testing Core Stabilization Poor core stabilization, difficulty activating TrA and multifidi. Knee Strength Knee Manual Muscle Testing Left Flexion (S2) 5 Normal Extension (L3) 5 Normal Right Flexion (S2) 5 Normal Extension (L3) 5 Normal Ankle/Foot Strength Ankle and Foot Manual Muscle Testing Left Dorsiflexion (L4) 4+ Good+ Plantarflexion (S1) 4+ Good+ Right Dorsiflexion (L4) 4+ Good+ Plantarflexion (S1) 4+ Good+ Toe Strength Toe Manual Muscle Testing Left Great Toe Extension 4+ Good+ Right Great Toe Extension 4- Good- PT-OP-Q Treatments Start: 09/16/18 11:20 Freq: Status: Active Protocol: Document 10/27/18 08:15 [facility] (Rec: 10/27/18 09:06 [facility] [id number]) Cardio Equipment Recumbent Stepper (Sci-Fit) Duration (Minutes) 10 Resistance 2.0 Seat Position 13 Gym Equipment Shuttle Recovery Unilateral Squats Resistance 37 Shuttle Recovery Platform Stable Reps/Time 10x2 Bilateral Squats Resistance 62 Shuttle Recovery Platform Stable Reps/Time 10x2 Therapeutic Exercises Supine Exercises SKTC Reps/Minutes 2x gluteal sets Reps/Minutes 10x hip ab/ER Reps/Minutes 10x pillow squeeze Reps/Minutes 10x abdominal corseting Reps/Minutes 5x HS stretch Reps/Minutes 3x Comments active Sidelying Exercises clamshell Reps/Minutes 10x Sitting Exercises row, sh ext Equipment Used L1 TB Reps/Minutes 10x Self-Care/Home Management Treatment Education Patient Education Body Mechanics Pain Management Posture Other Education updated HEP PT-OP-R Modalities Start: 09/16/18 11:20 Freq: Status: Active Protocol: Document 10/27/18 08:15 [facility] (Rec: 10/28/18 10:11 [facility] [id number]) Electric Stimulation Electric Stimulation Interferential Current (IFC) Body Location bilateral lumbar paraspinals Duration (Minutes) 15 Target/Sweep Sweep High/Low High Patient Position Sitting Combined With Heat/Cold Hot Pack Ultrasound Therapy Treatment Back Treatment Duration (minutes) 8 Patient Position Sidelying Coupling Medium Ultrasound Gel Frequency Setting (mHz) 1 Mode Setting Continuous Duty Cycle 100% Intensity Setting (w/cm2) 1.4 Comments bilateral lumbar paraspinals PT-OP-S Aquatic Treatment Start: 09/16/18 11:20 Freq: Status: Active Protocol: Document 11/01/18 11:00 [facility] (Rec: 11/01/18 16:43 [facility] [id number]) Aquatics Treatment Pool Entry/Exit Pool Entry/Exit Method Stairs Assistance Standby Assistance Verbal Cues Water Walking forward, side Water Level Chest Level Walking Equipment handheld, floating parallel bars, kenaitze foam float Level of Assistance Standby Assistance Moderate Assistance Lower Extremity Exercises knee flex/ext Reps/Duration 10x Comments mod UE support squats Reps/Duration 10x Comments mod UE support circles Reps/Duration 10x Comments mod UE support hip flex/ext Reps/Duration 10x Comments mod UE support hip ab/ad Reps/Duration 10x Comments mod UE support heel toe raise Reps/Duration 10x Comments mod UE support Lower Extremity Stretches HS, ITB, hip add Equipment small ankle floats Reps/Duration 2x [place] Activities [place] Activities Bicycle Other Activities deep water hang 1'x2 Equipment kenaitze foam float, neck float Other water recovery Details partial supine to stand, partial prone to stand Equipment neck float, kenaitze foam float Reps/Duration 2x PT-OP-T Assessment and Plan Start: 09/16/18 11:20 Freq: Status: Active Protocol: Document 11/01/18 11:00 [facility] (Rec: 11/01/18 16:43 [facility] [id number]) Physical Therapy Assessment Goals Strength Impairment weakness core and hips Short Term Goal (STG) Initiate therapeutic exercise program STG Duration 2 wks Fpc Goal (LTG) Improve strength to at least 4 +/5 throughout trunk and LE's LTG Duration 3 months Pain Impairment Pain level 7/10 Short Term Goal (STG) Decrease pain to no greater than 5/10 STG Duration 6 wks Kier Hand Goal (LTG) Decrease pain to no greater than 3/10 LTG Duration 3 months Gait Impairment Requires use of walker, unable to walk community distances Short Term Goal (STG) Able to ambulate with straight cane short community distances STG Duration 6 wks Fpc Goal (LTG) Patient able to ambulate without device for community distances. LTG Duration 3 months Activity tolerance Impairment Oswestery disability index score 52% Fpc Goal (LTG) Decrease Oswestry score to no greater than 30% LTG Duration 3 months Assessment Summary Assessment Patient gradually became more comfortable in the water during the course of the session. Physical Therapy Plan Frequency and Duration Frequency of Treatment 2x/Week Duration of Treatment 3 months Plan of Care Start Date 09/16/18 Plan of Care End Date 01/14/19 Therapeutic Interventions Therapeutic Interventions Aquatic Therapy Home Exercise Program Manual Therapy Neuromuscular Re-education Patient/Caregiver Education Self-Care/Home Management Soft Tissue Mobilization Taping Therapeutic Activities Therapeutic Exercises Modalities Cold Pack/Ice Massage Electric Stimulation Hot Packs Iontophoresis Ultrasound Next Visit Focus/Plan Next Note Type Treatment Note Next Visit Plan Evaluate response to aquatic therapy session, progress as tolerated with land and aquatic ex, modalities and manual therapy as indicated for pain management.
--- NOTE | 2018-11-03 08:34 | PT.OTN ---
Current Diagnoses Radiculopathy, lumbar region (11/02/18) Physical Therapy Treatment Note PT-OP-A Visit Information Start: 09/16/18 11:20 Freq: Status: Active Protocol: Document 11/02/18 09:45 [facility] (Rec: 11/02/18 10:11 [facility] [id number]) Out-Patient Physical Therapy Visit Information Visit Information Visit Type Treatment Note Visit Start Time 09:45 Visit Stop Time 10:40 Total Visit Minutes 55 Visit Number 7/ Number of UNDERCUTTER Visits 0 Precautions Precautions cardiac history PT-OP-B Current Condition Start: 09/16/18 11:20 Freq: Status: Active Protocol: Document 09/16/18 11:20 [facility]AK (Rec: 09/16/18 11:40 [facility] [id number]) Current Condition History of Current Condition Onset Date 07/20/18 Current Complaints bilateral LBP, right great toe numbness History of Current Condition L4-5 medial facetectomy and foraminotomy; reports it was supposed to be day surgery, but had possible PR at end of surgery (controversy over whether had PR vs reaction to medication) but reports hypertensive when coming out of anesthetic. Has not been doing well, pain worse than prior to surgery. States now physician stating he needs right MICHELLE; has seen surgeon but nothing scheduled yet. States he is uncertain about hip surgery both due to feeling most of his pain from back and concern over his recent response to surgery. Walks better with walker; states he limps without use of walker. Some numbness right great toe. Pain worse with standing and walking, minimal with sitting. Takes 2-3 Hydrocodone per day; 1 at a time. Unable to go for walks or golf as previoiusly Prior Treatments and Tests Using heat at home, trying to walk Future Testing and Treatments Planned Sees pain clinic next week to set up appointment for nerve block. Treatment Goals Patient/Caregiver Goals Decrease pain and resume prior activities. 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 PT-OP-C Subjective Start: 09/16/18 11:20 Freq: Status: Active Protocol: Document 11/02/18 09:45 [facility] (Rec: 11/02/18 10:11 [facility] [id number]) OP-PT Subjective Patient Comments Patient Comments Reports decreased pain with aquatic PT; wants to do more. States he was surprised by how much better his back felt. Took 3 hour nap after aquatic therapy. PT-OP-F Manual Assessment Start: 09/16/18 11:20 Freq: Status: Active Protocol: Document 09/16/18 11:20 [facility] (Rec: 09/22/18 16:40 [facility] [id number]) Manual Assessments Soft Tissue Assessment Soft Tissue Mobility Assessment Increased soft tissue tightness bilateral lumbar paraspinals PT-OP-G Mobility & Gait Start: 09/16/18 11:20 Freq: Status: Active Protocol: Document 09/16/18 11:20 [facility]AK (Rec: 09/22/18 16:40 [facility]AK [id number]) OP Gait Assessment Assistive Devices Assistive Device Front Wheeled Walker Gait Deviations General Gait Pattern Antalgic Decreased Stride Length Decreased Feet Clearance Flexed Trunk Factors Limiting Gait Function Factors Limiting Gait Function Decreased Activity Tolerance Pain PT-OP-H Neuro Start: 09/16/18 11:20 Freq: Status: Active Protocol: Document 09/16/18 11:20 [facility] (Rec: 09/22/18 16:40 [facility] [id number]) Sensation Evaluation Comments Summary Comments decreased to LT right great toe PT-OP-J Posture/Palpation/Skin Start: 09/16/18 11:20 Freq: Status: Active Protocol: Document 09/16/18 11:20 [facility] (Rec: 09/22/18 16:40 [facility] [id number]) Posture Evaluation Position Standing Head/C-Spine Posture Forward Head T-Spine Posture Increased Kyphosis L-Spine Posture Decreased Lordosis Weight Distribution Decreased Wt.Bear on (R) Hip Posture (L) Externally Rotated (R) Externally Rotated Skin Assessment Incisional Assessment Incision Appearance/Comments Well-healed with no signs or symptoms of infaction PT-OP-K Range of Motion Start: 09/16/18 11:20 Freq: Status: Active Protocol: Document 09/16/18 11:20 [facility] (Rec: 09/22/18 16:40 [facility] [id number]) Lumbar Spine Range of Motion Lumbar Spine Active Degrees Flexion 80 Rotation Left 15 Rotation Right 15 Lateral Flexion Left 30 Lateral Flexion Right 30 Comments -5 deg ext with c/o increased pain Hip Goniometric Range of Motion Hip Measured in Degrees Left Flexion w/Knee Flexed 105 Straight Leg Raise 45 Extension 0 Internal Rotation 25 External Rotation 70 Right Flexion w/Knee Flexed 110 Straight Leg Raise 45 Extension 0 Internal Rotation 15 External Rotation 20 PT-OP-M Strength Start: 09/16/18 11:20 Freq: Status: Active Protocol: Document 09/16/18 11:20 [facility] (Rec: 09/22/18 16:40 [facility] [id number]) Trunk Strength Trunk Manual Muscle Testing Core Stabilization Poor core stabilization, difficulty activating TrA and multifidi. Knee Strength Knee Manual Muscle Testing Left Flexion (S2) 5 Normal Extension (L3) 5 Normal Right Flexion (S2) 5 Normal Extension (L3) 5 Normal Ankle/Foot Strength Ankle and Foot Manual Muscle Testing Left Dorsiflexion (L4) 4+ Good+ Plantarflexion (S1) 4+ Good+ Right Dorsiflexion (L4) 4+ Good+ Plantarflexion (S1) 4+ Good+ Toe Strength Toe Manual Muscle Testing Left Great Toe Extension 4+ Good+ Right Great Toe Extension 4- Good- PT-OP-Q Treatments Start: 09/16/18 11:20 Freq: Status: Active Protocol: Document 11/02/18 09:45 [facility] (Rec: 11/02/18 10:11 [facility] [id number]) Cardio Equipment Recumbent Stepper (Sci-Fit) Duration (Minutes) 10 Resistance 2.0 Seat Position 12 Gym Equipment Shuttle Recovery Unilateral Squats Resistance 37 Shuttle Recovery Platform Stable Reps/Time 10x2 Bilateral Squats Resistance 62 Shuttle Recovery Platform Stable Reps/Time 10x2 Sport Cord fwd,side Reps/Duration 3x ea Comments emphasis on core stab Therapeutic Exercises Supine Exercises SKTC Reps/Minutes 2x HS stretch Reps/Minutes 3x Comments manual Sitting Exercises row, sh ext Equipment Used L1 TB Reps/Minutes 10x Standing Exercises HC stretch Reps/Minutes 2x shallow squat Reps/Minutes 10x heel raises Reps/Minutes 10x Self-Care/Home Management Treatment Education Patient Education Home Exercise Program PT-OP-R Modalities Start: 09/16/18 11:20 Freq: Status: Active Protocol: Document 11/02/18 09:45 [facility] (Rec: 11/03/18 08:34 [facility] [id number]) Electric Stimulation Electric Stimulation Interferential Current (IFC) Body Location bilateral lumbar paraspinals Duration (Minutes) 15 Target/Sweep Sweep High/Low High Patient Position Sitting Combined With Heat/Cold Hot Pack Ultrasound Therapy Treatment Back Treatment Duration (minutes) 8 Patient Position Sidelying Coupling Medium Ultrasound Gel Frequency Setting (mHz) 1 Mode Setting Continuous Duty Cycle 100% Intensity Setting (w/cm2) 1.4 Comments bilateral lumbar paraspinals PT-OP-S Aquatic Treatment Start: 09/16/18 11:20 Freq: Status: Active Protocol: Document 11/01/18 11:00 [facility] (Rec: 11/01/18 16:43 [facility] [id number]) Aquatics Treatment Pool Entry/Exit Pool Entry/Exit Method Stairs Assistance Standby Assistance Verbal Cues Water Walking forward, side Water Level Chest Level Walking Equipment handheld, floating parallel bars, pyramid lake foam float Level of Assistance Standby Assistance Moderate Assistance Lower Extremity Exercises knee flex/ext Reps/Duration 10x Comments mod UE support squats Reps/Duration 10x Comments mod UE support circles Reps/Duration 10x Comments mod UE support hip flex/ext Reps/Duration 10x Comments mod UE support hip ab/ad Reps/Duration 10x Comments mod UE support heel toe raise Reps/Duration 10x Comments mod UE support Lower Extremity Stretches HS, ITB, hip add Equipment small ankle floats Reps/Duration 2x [place] Activities [place] Activities Bicycle Other Activities deep water hang 1'x2 Equipment pyramid lake foam float, neck float Other water recovery Details partial supine to stand, partial prone to stand Equipment neck float, pyramid lake foam float Reps/Duration 2x PT-OP-T Assessment and Plan Start: 09/16/18 11:20 Freq: Status: Active Protocol: Document 11/02/18 09:40 [facility] (Rec: 11/03/18 08:33 [facility] [id number]) Physical Therapy Assessment Goals Strength Impairment weakness core and hips Short Term Goal (STG) Initiate therapeutic exercise program STG Duration 2 wks Bow String Maker Goal (LTG) Improve strength to at least 4 +/5 throughout trunk and LE's LTG Duration 3 months Pain Impairment Pain level 7/10 Short Term Goal (STG) Decrease pain to no greater than 5/10 STG Duration 6 wks Bow String Maker Goal (LTG) Decrease pain to no greater than 3/10 LTG Duration 3 months Gait Impairment Requires use of walker, unable to walk community distances Short Term Goal (STG) Able to ambulate with straight cane short community distances STG Duration 6 wks Nursing Home Goal (LTG) Patient able to ambulate without device for community distances. LTG Duration 3 months Activity tolerance Impairment Oswestery disability index score 52% Bow String Maker Goal (LTG) Decrease Oswestry score to no greater than 30% LTG Duration 3 months Assessment Summary Assessment Good results with aquatic therapy, patient to schedule more. Having injection . Physical Therapy Plan Frequency and Duration Frequency of Treatment 2x/Week Duration of Treatment 3 months Plan of Care Start Date 09/16/18 Plan of Care End Date 01/14/19 Therapeutic Interventions Therapeutic Interventions Aquatic Therapy Home Exercise Program Manual Therapy Neuromuscular Re-education Patient/Caregiver Education Self-Care/Home Management Soft Tissue Mobilization Taping Therapeutic Activities Therapeutic Exercises Next Visit Focus/Plan Next Note Type Treatment Note Next Visit Plan schedule further aquatic PT sessions, progress ther ex and HEP.
--- NOTE | 2018-11-08 13:09 | PT.OTN ---
Current Diagnoses Radiculopathy, lumbar region (11/02/18) Physical Therapy Treatment Note PT-OP-A Visit Information Start: 09/16/18 11:20 Freq: Status: Active Protocol: Document 11/08/18 10:15 CLB (Rec: 11/08/18 13:08 CLB [id number]) Out-Patient Physical Therapy Visit Information Visit Information Visit Type Treatment Note Visit Start Time 10:15 Visit Stop Time 11:00 Total Visit Minutes 45 Visit Number 8/10 Number of RESIDENTIAL SALES REP Visits 1 PT-OP-B Current Condition Start: 09/16/18 11:20 Freq: Status: Active Protocol: Document 09/16/18 11:20 SAK (Rec: 09/16/18 11:40 SAK [id number]) Current Condition History of Current Condition Onset Date 07/20/18 Current Complaints bilateral LBP, right great toe numbness History of Current Condition L4-5 medial facetectomy and foraminotomy; reports it was supposed to be day surgery, but had possible NV at end of surgery (controversy over whether had NV vs reaction to medication) but reports hypertensive when coming out of anesthetic. Has not been doing well, pain worse than prior to surgery. States now physician stating he needs right MICHELLE; has seen surgeon but nothing scheduled yet. States he is uncertain about hip surgery both due to feeling most of his pain from back and concern over his recent response to surgery. Walks better with walker; states he limps without use of walker. Some numbness right great toe. Pain worse with standing and walking, minimal with sitting. Takes 2-3 Hydrocodone per day; 1 at a time. Unable to go for walks or golf as previoiusly Prior Treatments and Tests Using heat at home, trying to walk Future Testing and Treatments Planned Sees pain clinic next week to set up appointment for nerve block. Treatment Goals Patient/Caregiver Goals Decrease pain and resume prior activities. 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 PT-OP-C Subjective Start: 09/16/18 11:20 Freq: Status: Active Protocol: Document 11/08/18 13:08 CLB (Rec: 11/08/18 13:09 CLB [id number]) OP-PT Subjective Patient Comments Patient Comments Pt stated he had no increase in pain after last aquatic session, pt also noted he had injections in hip but does not feel improvement in pain. PT-OP-F Manual Assessment Start: 09/16/18 11:20 Freq: Status: Active Protocol: Document 09/16/18 11:20 SAK (Rec: 09/22/18 16:40 SAK [id number]) Manual Assessments Soft Tissue Assessment Soft Tissue Mobility Assessment Increased soft tissue tightness bilateral lumbar paraspinals PT-OP-G Mobility & Gait Start: 09/16/18 11:20 Freq: Status: Active Protocol: Document 09/16/18 11:20 SAK (Rec: 09/22/18 16:40 SAK [id number]) OP Gait Assessment Assistive Devices Assistive Device Front Wheeled Walker Gait Deviations General Gait Pattern Antalgic Decreased Stride Length Decreased Feet Clearance Flexed Trunk Factors Limiting Gait Function Factors Limiting Gait Function Decreased Activity Tolerance Pain PT-OP-H Neuro Start: 09/16/18 11:20 Freq: Status: Active Protocol: Document 09/16/18 11:20 SAK (Rec: 09/22/18 16:40 SAK [id number]) Sensation Evaluation Comments Summary Comments decreased to LT right great toe PT-OP-J Posture/Palpation/Skin Start: 09/16/18 11:20 Freq: Status: Active Protocol: Document 09/16/18 11:20 SAK (Rec: 09/22/18 16:40 SAK [id number]) Posture Evaluation Position Standing Head/C-Spine Posture Forward Head T-Spine Posture Increased Kyphosis L-Spine Posture Decreased Lordosis Weight Distribution Decreased Wt.Bear on (R) Hip Posture (L) Externally Rotated (R) Externally Rotated Skin Assessment Incisional Assessment Incision Appearance/Comments Well-healed with no signs or symptoms of infaction PT-OP-K Range of Motion Start: 09/16/18 11:20 Freq: Status: Active Protocol: Document 09/16/18 11:20 SAK (Rec: 09/22/18 16:40 SAK [id number]) Lumbar Spine Range of Motion Lumbar Spine Active Degrees Flexion 80 Rotation Left 15 Rotation Right 15 Lateral Flexion Left 30 Lateral Flexion Right 30 Comments -5 deg ext with c/o increased pain Hip Goniometric Range of Motion Hip Measured in Degrees Left Flexion w/Knee Flexed 105 Straight Leg Raise 45 Extension 0 Internal Rotation 25 External Rotation 70 Right Flexion w/Knee Flexed 110 Straight Leg Raise 45 Extension 0 Internal Rotation 15 External Rotation 20 PT-OP-M Strength Start: 09/16/18 11:20 Freq: Status: Active Protocol: Document 09/16/18 11:20 SAK (Rec: 09/22/18 16:40 SAK [id number]) Trunk Strength Trunk Manual Muscle Testing Core Stabilization Poor core stabilization, difficulty activating TrA and multifidi. Knee Strength Knee Manual Muscle Testing Left Flexion (S2) 5 Normal Extension (L3) 5 Normal Right Flexion (S2) 5 Normal Extension (L3) 5 Normal Ankle/Foot Strength Ankle and Foot Manual Muscle Testing Left Dorsiflexion (L4) 4+ Good+ Plantarflexion (S1) 4+ Good+ Right Dorsiflexion (L4) 4+ Good+ Plantarflexion (S1) 4+ Good+ Toe Strength Toe Manual Muscle Testing Left Great Toe Extension 4+ Good+ Right Great Toe Extension 4- Good- PT-OP-Q Treatments Start: 09/16/18 11:20 Freq: Status: Active Protocol: Document 11/02/18 09:45 RUSTY (Rec: 11/02/18 10:11 [facility] [id number]) Cardio Equipment Recumbent Stepper (Sci-Fit) Duration (Minutes) 10 Resistance 2.0 Seat Position 12 Gym Equipment Shuttle Recovery Unilateral Squats Resistance 37 Shuttle Recovery Platform Stable Reps/Time 10x2 Bilateral Squats Resistance 62 Shuttle Recovery Platform Stable Reps/Time 10x2 Sport Cord fwd,side Reps/Duration 3x ea Comments emphasis on core stab Therapeutic Exercises Supine Exercises SKTC Reps/Minutes 2x HS stretch Reps/Minutes 3x Comments manual Sitting Exercises row, sh ext Equipment Used L1 TB Reps/Minutes 10x Standing Exercises HC stretch Reps/Minutes 2x shallow squat Reps/Minutes 10x heel raises Reps/Minutes 10x Self-Care/Home Management Treatment Education Patient Education Home Exercise Program PT-OP-R Modalities Start: 09/16/18 11:20 Freq: Status: Active Protocol: Document 11/02/18 09:45 SAK (Rec: 11/03/18 08:34 SAK [id number]) Electric Stimulation Electric Stimulation Interferential Current (IFC) Body Location bilateral lumbar paraspinals Duration (Minutes) 15 Target/Sweep Sweep High/Low High Patient Position Sitting Combined With Heat/Cold Hot Pack Ultrasound Therapy Treatment Back Treatment Duration (minutes) 8 Patient Position Sidelying Coupling Medium Ultrasound Gel Frequency Setting (mHz) 1 Mode Setting Continuous Duty Cycle 100% Intensity Setting (w/cm2) 1.4 Comments bilateral lumbar paraspinals PT-OP-S Aquatic Treatment Start: 09/16/18 11:20 Freq: Status: Active Protocol: Document 11/08/18 10:15 CLB (Rec: 11/08/18 13:08 CLB [id number]) Aquatics Treatment Pool Entry/Exit Pool Entry/Exit Method Stairs Assistance Standby Assistance Verbal Cues Water Walking forward, side Water Level Chest Level Walking Equipment handheld, floating parallel bars, [place] foam float Level of Assistance Standby Assistance Moderate Assistance Lower Extremity Exercises knee flex/ext Reps/Duration 10x Comments mod UE support squats Reps/Duration 10x Comments mod UE support circles Reps/Duration 10x Comments mod UE support hip flex/ext Reps/Duration 10x Comments mod UE support hip ab/ad Reps/Duration 10x Comments mod UE support heel toe raise Reps/Duration 10x Comments mod UE support Lower Extremity Stretches HS, ITB, hip add Equipment small ankle floats Reps/Duration 2x Upper Extremity Exercises Golf Swing Body Position Standing Water Level Waist Level Equipment water cane Reps/Duration 5 Comments activity stopped due to pain in LB Riverside Activities Riverside Activities Bicycle Other Activities deep water hang 1'x2 Equipment [place] foam float, neck float PT-OP-T Assessment and Plan Start: 09/16/18 11:20 Freq: Status: Active Protocol: Document 11/08/18 10:15 CLB (Rec: 11/08/18 13:08 CLB [id number]) Physical Therapy Assessment Goals Strength Impairment weakness core and hips Short Term Goal (STG) Initiate therapeutic exercise program STG Duration 2 wks Metal Forger'S Assistant Goal (LTG) Improve strength to at least 4 +/5 throughout trunk and LE's LTG Duration 3 months Pain Impairment Pain level 7/10 Short Term Goal (STG) Decrease pain to no greater than 5/10 STG Duration 6 wks Snf Goal (LTG) Decrease pain to no greater than 3/10 LTG Duration 3 months Gait Impairment Requires use of walker, unable to walk community distances Short Term Goal (STG) Able to ambulate with straight cane short community distances STG Duration 6 wks Metal Forger'S Assistant Goal (LTG) Patient able to ambulate without device for community distances. LTG Duration 3 months Activity tolerance Impairment Oswestery disability index score 52% Metal Forger'S Assistant Goal (LTG) Decrease Oswestry score to no greater than 30% LTG Duration 3 months Assessment Summary Assessment Pt with pain in LB after LE ther ex. Pt increased balance with water walking. Physical Therapy Plan Frequency and Duration Frequency of Treatment 2x/Week Duration of Treatment 3 months Plan of Care Start Date 09/16/18 Plan of Care End Date 01/14/19 Therapeutic Interventions Therapeutic Interventions Aquatic Therapy Home Exercise Program Manual Therapy Neuromuscular Re-education Patient/Caregiver Education Self-Care/Home Management Soft Tissue Mobilization Taping Therapeutic Activities Therapeutic Exercises Next Visit Focus/Plan Next Note Type Treatment Note Next Visit Plan Progress aquatic therapy as tolerated with minimal discomfort of LB.
--- NOTE | 2018-11-10 16:38 | PT.OTN ---
Current Diagnoses Radiculopathy, lumbar region (11/09/18) Physical Therapy Treatment Note PT-OP-A Visit Information Start: 09/16/18 11:20 Freq: Status: Active Protocol: Document 11/09/18 13:00 SAK (Rec: 11/09/18 13:43 SAK [id number]) Out-Patient Physical Therapy Visit Information Visit Information Visit Type Treatment Note Visit Start Time 13:00 Visit Stop Time 14:00 Total Visit Minutes 60 Visit Number 9/10 Number of YARN FINISHER Visits 0 PT-OP-B Current Condition Start: 09/16/18 11:20 Freq: Status: Active Protocol: Document 09/16/18 11:20 SAK (Rec: 09/16/18 11:40 SAK [id number]) Current Condition History of Current Condition Onset Date 07/20/18 Current Complaints bilateral LBP, right great toe numbness History of Current Condition L4-5 medial facetectomy and foraminotomy; reports it was supposed to be day surgery, but had possible [place] at end of surgery (controversy over whether had [place] vs reaction to medication) but reports hypertensive when coming out of anesthetic. Has not been doing well, pain worse than prior to surgery. States now physician stating he needs right MICHELLE; has seen surgeon but nothing scheduled yet. States he is uncertain about hip surgery both due to feeling most of his pain from back and concern over his recent response to surgery. Walks better with walker; states he limps without use of walker. Some numbness right great toe. Pain worse with standing and walking, minimal with sitting. Takes 2-3 Hydrocodone per day; 1 at a time. Unable to go for walks or golf as previoiusly Prior Treatments and Tests Using heat at home, trying to walk Future Testing and Treatments Planned Sees pain clinic next week to set up appointment for nerve block. Treatment Goals Patient/Caregiver Goals Decrease pain and resume prior activities. 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 PT-OP-C Subjective Start: 09/16/18 11:20 Freq: Status: Active Protocol: Document 11/09/18 13:00 SAK (Rec: 11/09/18 13:43 SAK [id number]) OP-PT Subjective Patient Comments Patient Comments Some pain after yesterday's aquatic PT session, but not bad. Still pleased able to be vertical for 45 minutes Patient Reported Progress Improving PT-OP-F Manual Assessment Start: 09/16/18 11:20 Freq: Status: Active Protocol: Document 09/16/18 11:20 SAK (Rec: 09/22/18 16:40 SAK [id number]) Manual Assessments Soft Tissue Assessment Soft Tissue Mobility Assessment Increased soft tissue tightness bilateral lumbar paraspinals PT-OP-G Mobility & Gait Start: 09/16/18 11:20 Freq: Status: Active Protocol: Document 09/16/18 11:20 SAK (Rec: 09/22/18 16:40 SAK [id number]) OP Gait Assessment Assistive Devices Assistive Device Front Wheeled Walker Gait Deviations General Gait Pattern Antalgic Decreased Stride Length Decreased Feet Clearance Flexed Trunk Factors Limiting Gait Function Factors Limiting Gait Function Decreased Activity Tolerance Pain PT-OP-H Neuro Start: 09/16/18 11:20 Freq: Status: Active Protocol: Document 09/16/18 11:20 SAK (Rec: 09/22/18 16:40 SAK [id number]) Sensation Evaluation Comments Summary Comments decreased to LT right great toe PT-OP-J Posture/Palpation/Skin Start: 09/16/18 11:20 Freq: Status: Active Protocol: Document 09/16/18 11:20 SAK (Rec: 09/22/18 16:40 SAK [id number]) Posture Evaluation Position Standing Head/C-Spine Posture Forward Head T-Spine Posture Increased Kyphosis L-Spine Posture Decreased Lordosis Weight Distribution Decreased Wt.Bear on (R) Hip Posture (L) Externally Rotated (R) Externally Rotated Skin Assessment Incisional Assessment Incision Appearance/Comments Well-healed with no signs or symptoms of infaction PT-OP-K Range of Motion Start: 09/16/18 11:20 Freq: Status: Active Protocol: Document 09/16/18 11:20 SAK (Rec: 09/22/18 16:40 SAK [id number]) Lumbar Spine Range of Motion Lumbar Spine Active Degrees Flexion 80 Rotation Left 15 Rotation Right 15 Lateral Flexion Left 30 Lateral Flexion Right 30 Comments -5 deg ext with c/o increased pain Hip Goniometric Range of Motion Hip Measured in Degrees Left Flexion w/Knee Flexed 105 Straight Leg Raise 45 Extension 0 Internal Rotation 25 External Rotation 70 Right Flexion w/Knee Flexed 110 Straight Leg Raise 45 Extension 0 Internal Rotation 15 External Rotation 20 PT-OP-M Strength Start: 09/16/18 11:20 Freq: Status: Active Protocol: Document 09/16/18 11:20 [facility] (Rec: 09/22/18 16:40 [facility] [id number]) Trunk Strength Trunk Manual Muscle Testing Core Stabilization Poor core stabilization, difficulty activating TrA and multifidi. Knee Strength Knee Manual Muscle Testing Left Flexion (S2) 5 Normal Extension (L3) 5 Normal Right Flexion (S2) 5 Normal Extension (L3) 5 Normal Ankle/Foot Strength Ankle and Foot Manual Muscle Testing Left Dorsiflexion (L4) 4+ Good+ Plantarflexion (S1) 4+ Good+ Right Dorsiflexion (L4) 4+ Good+ Plantarflexion (S1) 4+ Good+ Toe Strength Toe Manual Muscle Testing Left Great Toe Extension 4+ Good+ Right Great Toe Extension 4- Good- PT-OP-Q Treatments Start: 09/16/18 11:20 Freq: Status: Active Protocol: Document 11/09/18 13:00 [facility] (Rec: 11/09/18 13:43 [facility] [id number]) Cardio Equipment Recumbent Stepper (Sci-Fit) Duration (Minutes) 10 Resistance 2.5 Seat Position 15 Gym Equipment Shuttle Recovery Unilateral Squats Resistance 50 Shuttle Recovery Platform Stable Reps/Time 10x2 Bilateral Squats Resistance 75 Shuttle Recovery Platform Stable Reps/Time 10x2 Sport Cord fwd,side Reps/Duration 3x ea Comments emphasis on core stab Therapeutic Exercises Supine Exercises TrA with march Reps/Minutes 10x SKTC Reps/Minutes 2x gluteal sets Reps/Minutes 10x hip ab/ER Reps/Minutes 10x HS stretch Reps/Minutes 3x Comments manual Sitting Exercises row, sh ext Equipment Used L1 TB Reps/Minutes 10x Standing Exercises HC stretch Reps/Minutes 2x shallow squat Reps/Minutes 10x sidestepping Equipment Used yellow TB Comments UE support Gait Training Gait Activity 1 Device Used none Level of Assistance level Treatment Focus gluteal activation PT-OP-R Modalities Start: 09/16/18 11:20 Freq: Status: Active Protocol: Document 11/09/18 13:00 SAK (Rec: 11/09/18 13:43 SAK [id number]) Electric Stimulation Electric Stimulation Interferential Current (IFC) Body Location bilateral lumbar paraspinals Duration (Minutes) 15 Target/Sweep Sweep High/Low High Patient Position Sitting Combined With Heat/Cold Hot Pack Ultrasound Therapy Treatment Back Treatment Duration (minutes) 8 Patient Position Sidelying Coupling Medium Ultrasound Gel Frequency Setting (mHz) 1 Mode Setting Continuous Duty Cycle 100% Intensity Setting (w/cm2) 1.4 Comments bilateral lumbar paraspinals PT-OP-S Aquatic Treatment Start: 09/16/18 11:20 Freq: Status: Active Protocol: Document 11/08/18 10:15 CLB (Rec: 11/08/18 13:08 CLB [id number]) Aquatics Treatment Pool Entry/Exit Pool Entry/Exit Method Stairs Assistance Standby Assistance Verbal Cues Water Walking forward, side Water Level Chest Level Walking Equipment handheld, floating parallel bars, [place] foam float Level of Assistance Standby Assistance Moderate Assistance Lower Extremity Exercises knee flex/ext Reps/Duration 10x Comments mod UE support squats Reps/Duration 10x Comments mod UE support circles Reps/Duration 10x Comments mod UE support hip flex/ext Reps/Duration 10x Comments mod UE support hip ab/ad Reps/Duration 10x Comments mod UE support heel toe raise Reps/Duration 10x Comments mod UE support Lower Extremity Stretches HS, ITB, hip add Equipment small ankle floats Reps/Duration 2x Upper Extremity Exercises Golf Swing Body Position Standing Water Level Waist Level Equipment water cane Reps/Duration 5 Comments activity stopped due to pain in LB Lind Activities Lind Activities Bicycle Other Activities deep water hang 1'x2 Equipment [place] foam float, neck float PT-OP-T Assessment and Plan Start: 09/16/18 11:20 Freq: Status: Active Protocol: Document 11/09/18 13:00 SAK (Rec: 11/10/18 16:38 [facility] [id number]) Physical Therapy Assessment Goals Strength Impairment weakness core and hips Short Term Goal (STG) Initiate therapeutic exercise program STG Duration 2 wks Broker In Charge Goal (LTG) Improve strength to at least 4 +/5 throughout trunk and LE's LTG Duration 3 months Pain Impairment Pain level 7/10 Short Term Goal (STG) Decrease pain to no greater than 5/10 STG Duration 6 wks Broker In Charge Goal (LTG) Decrease pain to no greater than 3/10 LTG Duration 3 months Gait Impairment Requires use of walker, unable to walk community distances Short Term Goal (STG) Able to ambulate with straight cane short community distances STG Duration 6 wks Fdc Goal (LTG) Patient able to ambulate without device for community distances. LTG Duration 3 months Activity tolerance Impairment Oswestery disability index score 52% Broker In Charge Goal (LTG) Decrease Oswestry score to no greater than 30% LTG Duration 3 months Assessment Summary Assessment Patient tolerates minimal gait without walker at this time due to LBP which appears related to forward bent posture that he has difficulty correcting. Physical Therapy Plan Frequency and Duration Frequency of Treatment 2x/Week Duration of Treatment 3 months Plan of Care Start Date 09/16/18 Plan of Care End Date 01/14/19 Therapeutic Interventions Therapeutic Interventions Aquatic Therapy Home Exercise Program Manual Therapy Neuromuscular Re-education Patient/Caregiver Education Self-Care/Home Management Soft Tissue Mobilization Taping Therapeutic Activities Therapeutic Exercises Next Visit Focus/Plan Next Note Type Treatment Note Next Visit Plan Continue combination land and aquatic PT to decrease pain, improve strength and functional mobility.
--- NOTE | 2018-11-14 13:02 | PT.OTRE ---
Current Diagnoses Radiculopathy, lumbar region (11/12/18) Past Medical History (Last Reviewed 09/29/18 @ 10:37 by Carolina Dang DO) Thoracic aortic aneurysm (Acute) BPH (benign prostatic hyperplasia) (Chronic) Cervical spine disease (Chronic) Chronic neck pain (Chronic) Coronary artery disease (Chronic) GERD (gastroesophageal reflux disease) (Chronic) Hypertension (Chronic) Atrial fibrillation (Resolved ~1993) Bladder cancer (Resolved) Myocardial infarction (Resolved 1978) Surgical History (Last Reviewed 09/29/18 @ 10:37 by Carolina Dang DO) History of abdominal aortic aneurysm repair (Resolved ~2006) Hx of cervical discectomy (Resolved) Hx of coronary artery bypass graft (Resolved ~1980) Hx of laminectomy (Resolved ~04/2016) Hx of transurethral resection of prostate (Resolved) S/P carotid endarterectomy (Resolved ~1990) Provider Visit Care Team Role Provider Type Chris Fallon MD Family Provider Non-Staff Specialty: Urology Address: [address] [place] [address], [id number] Email: Carolina Dang DO Attending Provider Physician Primary Care Provider Specialty: Family Practice Address: [address] [place] [address], [id number] Email: [email or web address] Physical Therapy Re-Evaluation PT-OP-A Visit Information Start: 09/16/18 11:20 Freq: Status: Active Protocol: Document 11/12/18 11:00 [facility] (Rec: 11/14/18 13:02 [facility] [id number]) Out-Patient Physical Therapy Visit Information Visit Information Visit Type Re-Evaluation Visit Start Time 11:00 Visit Stop Time 11:45 Total Visit Minutes 45 Visit Number 07/28 Number of MOBILE UNIT ASSISTANT Visits 0 PT-OP-B Current Condition Start: 09/16/18 11:20 Freq: Status: Active Protocol: Document 09/16/18 11:20 [facility] (Rec: 09/16/18 11:40 [facility] [id number]) Current Condition History of Current Condition Onset Date 07/20/18 Current Complaints bilateral LBP, right great toe numbness History of Current Condition L4-5 medial facetectomy and foraminotomy; reports it was supposed to be day surgery, but had possible SC at end of surgery (controversy over whether had SC vs reaction to medication) but reports hypertensive when coming out of anesthetic. Has not been doing well, pain worse than prior to surgery. States now physician stating he needs right MICHELLE; has seen surgeon but nothing scheduled yet. States he is uncertain about hip surgery both due to feeling most of his pain from back and concern over his recent response to surgery. Walks better with walker; states he limps without use of walker. Some numbness right great toe. Pain worse with standing and walking, minimal with sitting. Takes 2-3 Hydrocodone per day; 1 at a time. Unable to go for walks or golf as previoiusly Prior Treatments and Tests Using heat at home, trying to walk Future Testing and Treatments Planned Sees pain clinic next week to set up appointment for nerve block. Treatment Goals Patient/Caregiver Goals Decrease pain and resume prior activities. 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 PT-OP-C Subjective Start: 09/16/18 11:20 Freq: Status: Active Protocol: Document 11/09/18 13:00 [facility] (Rec: 11/09/18 13:43 [facility] [id number]) OP-PT Subjective Patient Comments Patient Comments Some pain after yesterday's aquatic PT session, but not bad. Still pleased able to be vertical for 45 minutes Patient Reported Progress Improving PT-OP-F Manual Assessment Start: 09/16/18 11:20 Freq: Status: Active Protocol: Document 09/16/18 11:20 [facility] (Rec: 09/22/18 16:40 [facility] [id number]) Manual Assessments Soft Tissue Assessment Soft Tissue Mobility Assessment Increased soft tissue tightness bilateral lumbar paraspinals PT-OP-G Mobility & Gait Start: 09/16/18 11:20 Freq: Status: Active Protocol: Document 09/16/18 11:20 [facility] (Rec: 09/22/18 16:40 [facility] [id number]) OP Gait Assessment Assistive Devices Assistive Device Front Wheeled Walker Gait Deviations General Gait Pattern Antalgic Decreased Stride Length Decreased Feet Clearance Flexed Trunk Factors Limiting Gait Function Factors Limiting Gait Function Decreased Activity Tolerance Pain PT-OP-H Neuro Start: 09/16/18 11:20 Freq: Status: Active Protocol: Document 09/16/18 11:20 [facility] (Rec: 09/22/18 16:40 [facility] [id number]) Sensation Evaluation Comments Summary Comments decreased to LT right great toe PT-OP-J Posture/Palpation/Skin Start: 09/16/18 11:20 Freq: Status: Active Protocol: Document 09/16/18 11:20 [facility] (Rec: 09/22/18 16:40 [facility] [id number]) Posture Evaluation Position Standing Head/C-Spine Posture Forward Head T-Spine Posture Increased Kyphosis L-Spine Posture Decreased Lordosis Weight Distribution Decreased Wt.Bear on (R) Hip Posture (L) Externally Rotated (R) Externally Rotated Skin Assessment Incisional Assessment Incision Appearance/Comments Well-healed with no signs or symptoms of infaction PT-OP-K Range of Motion Start: 09/16/18 11:20 Freq: Status: Active Protocol: Document 09/16/18 11:20 [facility] (Rec: 09/22/18 16:40 [facility] [id number]) Lumbar Spine Range of Motion Lumbar Spine Active Degrees Flexion 80 Rotation Left 15 Rotation Right 15 Lateral Flexion Left 30 Lateral Flexion Right 30 Comments -5 deg ext with c/o increased pain Hip Goniometric Range of Motion Hip Measured in Degrees Left Flexion w/Knee Flexed 105 Straight Leg Raise 45 Extension 0 Internal Rotation 25 External Rotation 70 Right Flexion w/Knee Flexed 110 Straight Leg Raise 45 Extension 0 Internal Rotation 15 External Rotation 20 PT-OP-M Strength Start: 09/16/18 11:20 Freq: Status: Active Protocol: Document 09/16/18 11:20 [facility] (Rec: 09/22/18 16:40 [facility] [id number]) Trunk Strength Trunk Manual Muscle Testing Core Stabilization Poor core stabilization, difficulty activating TrA and multifidi. Knee Strength Knee Manual Muscle Testing Left Flexion (S2) 5 Normal Extension (L3) 5 Normal Right Flexion (S2) 5 Normal Extension (L3) 5 Normal Ankle/Foot Strength Ankle and Foot Manual Muscle Testing Left Dorsiflexion (L4) 4+ Good+ Plantarflexion (S1) 4+ Good+ Right Dorsiflexion (L4) 4+ Good+ Plantarflexion (S1) 4+ Good+ Toe Strength Toe Manual Muscle Testing Left Great Toe Extension 4+ Good+ Right Great Toe Extension 4- Good- PT-OP-Q Treatments Start: 09/16/18 11:20 Freq: Status: Active Protocol: Document 11/09/18 13:00 [facility] (Rec: 11/09/18 13:43 [facility] [id number]) Cardio Equipment Recumbent Stepper (Sci-Fit) Duration (Minutes) 10 Resistance 2.5 Seat Position 15 Gym Equipment Shuttle Recovery Unilateral Squats Resistance 50 Shuttle Recovery Platform Stable Reps/Time 10x2 Bilateral Squats Resistance 75 Shuttle Recovery Platform Stable Reps/Time 10x2 Sport Cord fwd,side Reps/Duration 3x ea Comments emphasis on core stab Therapeutic Exercises Supine Exercises TrA with march Reps/Minutes 10x SKTC Reps/Minutes 2x gluteal sets Reps/Minutes 10x hip ab/ER Reps/Minutes 10x HS stretch Reps/Minutes 3x Comments manual Sitting Exercises row, sh ext Equipment Used L1 TB Reps/Minutes 10x Standing Exercises HC stretch Reps/Minutes 2x shallow squat Reps/Minutes 10x sidestepping Equipment Used yellow TB Comments UE support Gait Training Gait Activity 1 Device Used none Level of Assistance level Treatment Focus gluteal activation PT-OP-R Modalities Start: 09/16/18 11:20 Freq: Status: Active Protocol: Document 11/09/18 13:00 [facility] (Rec: 11/09/18 13:43 [facility] [id number]) Electric Stimulation Electric Stimulation Interferential Current (IFC) Body Location bilateral lumbar paraspinals Duration (Minutes) 15 Target/Sweep Sweep High/Low High Patient Position Sitting Combined With Heat/Cold Hot Pack Ultrasound Therapy Treatment Back Treatment Duration (minutes) 8 Patient Position Sidelying Coupling Medium Ultrasound Gel Frequency Setting (mHz) 1 Mode Setting Continuous Duty Cycle 100% Intensity Setting (w/cm2) 1.4 Comments bilateral lumbar paraspinals PT-OP-T Assessment and Plan Start: 09/16/18 11:20 Freq: Status: Active Protocol: Document 11/12/18 11:00 [facility] (Rec: 11/14/18 13:02 [facility] [id number]) Physical Therapy Assessment Goals Strength Impairment weakness core and hips Short Term Goal (STG) Initiate therapeutic exercise program (goal met) STG Duration 2 wks Director Security Risk Management Goal (LTG) Improve strength to at least 4 +/5 throughout trunk and LE's (goal progress) LTG Duration 3 months Pain Impairment Pain level 7/10 Short Term Goal (STG) Decrease pain to no greater than 5/10 (goal progress, reports no pain when in pool for aquatic therapy) STG Duration 6 wks Fpc Goal (LTG) Decrease pain to no greater than 3/10 LTG Duration 3 months Gait Impairment Requires use of walker, unable to walk community distances Short Term Goal (STG) Able to ambulate with straight cane short community distances (goal progress) STG Duration 6 wks Fpc Goal (LTG) Patient able to ambulate without device for community distances. LTG Duration 3 months Activity tolerance Impairment Oswestery disability index score 52% Fpc Goal (LTG) Decrease Oswestry score to no greater than 30% (goal progress) LTG Duration 3 months Progress Towards Goals Progress Towards Goals Slow Progress due to Activity Tolerance Slow Progress due to Attendance Issues Progress Comments Jori is making some progress toward goals though his function is still significantly limited due to pain with standing and walking . His forward bent posture is highly contributory to this but he has difficult with correction of his posture. We recently initiate aquatic therapy and he reports good benefit from this treatment; minimal to no pain while in pool, able to tolerate 45 min of gait and ther ex in vertical position, and reporting decrease in pain for several hours afterward. He has requested increased frequency of aquatic therapy, in combination with land-based PT. Assessment Summary Assessment I feel Jori would benefit from continued PT for rehab s/p spinal surgery, with increased frequency of aquatic therapy as that has been found to be most effective for him. Physical Therapy Plan Frequency and Duration Frequency of Treatment 1x/Week Duration of Treatment 3 months Plan of Care Start Date 11/12/18 Plan of Care End Date 02/10/19 Therapeutic Interventions Therapeutic Interventions Aquatic Therapy Home Exercise Program Manual Therapy Neuromuscular Re-education Patient/Caregiver Education Self-Care/Home Management Soft Tissue Mobilization Taping Therapeutic Activities Therapeutic Exercises Next Visit Focus/Plan Next Note Type Treatment Note Next Visit Plan aquatic therapy with emphasis on gait, strengthening, postural correction as tolerated.
--- NOTE | 2018-11-14 13:02 | PT.OPPOC ---
Current Diagnoses Radiculopathy, lumbar region (11/12/18) Provider Visit Care Team Role Provider Type Chris Fallon MD Family Provider Non-Staff Specialty: Urology Address: [address] [facility] [address], [place], [address] Email: Carolina Dang DO Attending Provider Physician Primary Care Provider Specialty: Family Practice Address: [facility] [place], [address] Email: [email or web address] Plan Of Care PT-OP-T Assessment and Plan Start: 09/16/18 11:20 Freq: Status: Active Protocol: Document 11/12/18 11:00 [facility] (Rec: 11/14/18 13:02 [facility] [id number]) Physical Therapy Assessment Goals Strength Impairment weakness core and hips Short Term Goal (STG) Initiate therapeutic exercise program (goal met) STG Duration 2 wks Nursing Home Goal (LTG) Improve strength to at least 4 +/5 throughout trunk and LE's (goal progress) LTG Duration 3 months Pain Impairment Pain level 7/10 Short Term Goal (STG) Decrease pain to no greater than 5/10 (goal progress, reports no pain when in pool for aquatic therapy) STG Duration 6 wks Poultry Field Service Technician Goal (LTG) Decrease pain to no greater than 3/10 LTG Duration 3 months Gait Impairment Requires use of walker, unable to walk community distances Short Term Goal (STG) Able to ambulate with straight cane short community distances (goal progress) STG Duration 6 wks Poultry Field Service Technician Goal (LTG) Patient able to ambulate without device for community distances. LTG Duration 3 months Activity tolerance Impairment Oswestery disability index score 52% Poultry Field Service Technician Goal (LTG) Decrease Oswestry score to no greater than 30% (goal progress) LTG Duration 3 months Progress Towards Goals Progress Towards Goals Slow Progress due to Activity Tolerance Slow Progress due to Attendance Issues Progress Comments Jori is making some progress toward goals though his function is still significantly limited due to pain with standing and walking . His forward bent posture is highly contributory to this but he has difficult with correction of his posture. We recently initiate aquatic therapy and he reports good benefit from this treatment; minimal to no pain while in pool, able to tolerate 45 min of gait and ther ex in vertical position, and reporting decrease in pain for several hours afterward. He has requested increased frequency of aquatic therapy, in combination with land-based PT. Assessment Summary Assessment I feel Jori would benefit from continued PT for rehab s/p spinal surgery, with increased frequency of aquatic therapy as that has been found to be most effective for him. Physical Therapy Plan Frequency and Duration Frequency of Treatment 1x/Week Duration of Treatment 3 months Plan of Care Start Date 11/12/18 Plan of Care End Date 02/10/19 Therapeutic Interventions Therapeutic Interventions Aquatic Therapy Home Exercise Program Manual Therapy Neuromuscular Re-education Patient/Caregiver Education Self-Care/Home Management Soft Tissue Mobilization Taping Therapeutic Activities Therapeutic Exercises Next Visit Focus/Plan Next Note Type Treatment Note Next Visit Plan aquatic therapy with emphasis on gait, strengthening, postural correction as tolerated. Plan of Care Dates Plan of Care Start Date 11/12/18 Plan of Care End Date 02/10/19 Please Sign and Return: I have reviewed this Plan of Care and certify that the skilled therapy services above are required to meet the patient?s needs. Physician Signature Date Printed Name and Credentials Clinical Instructor Signature Printed Name and Credentials
--- NOTE | 2018-11-15 15:27 | PT.OTN ---
Current Diagnoses Radiculopathy, lumbar region (11/12/18) Physical Therapy Treatment Note PT-OP-A Visit Information Start: 09/16/18 11:20 Freq: Status: Active Protocol: Document 11/15/18 11:45 CLB (Rec: 11/15/18 15:26 CLB [id number]) Out-Patient Physical Therapy Visit Information Visit Information Visit Type Treatment Note Visit Start Time 11:00 Visit Stop Time 11:45 Total Visit Minutes 45 Number of HAIRSPRING FABRICATION SUPERVISOR Visits 1 PT-OP-B Current Condition Start: 09/16/18 11:20 Freq: Status: Active Protocol: Document 09/16/18 11:20 SAK (Rec: 09/16/18 11:40 SAK [id number]) Current Condition History of Current Condition Onset Date 07/20/18 Current Complaints bilateral LBP, right great toe numbness History of Current Condition L4-5 medial facetectomy and foraminotomy; reports it was supposed to be day surgery, but had possible WA at end of surgery (controversy over whether had WA vs reaction to medication) but reports hypertensive when coming out of anesthetic. Has not been doing well, pain worse than prior to surgery. States now physician stating he needs right MICHELLE; has seen surgeon but nothing scheduled yet. States he is uncertain about hip surgery both due to feeling most of his pain from back and concern over his recent response to surgery. Walks better with walker; states he limps without use of walker. Some numbness right great toe. Pain worse with standing and walking, minimal with sitting. Takes 2-3 Hydrocodone per day; 1 at a time. Unable to go for walks or golf as previoiusly Prior Treatments and Tests Using heat at home, trying to walk Future Testing and Treatments Planned Sees pain clinic next week to set up appointment for nerve block. Treatment Goals Patient/Caregiver Goals Decrease pain and resume prior activities. 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 PT-OP-C Subjective Start: 09/16/18 11:20 Freq: Status: Active Protocol: Document 11/15/18 11:45 CLB (Rec: 11/15/18 15:26 CLB [id number]) OP-PT Subjective Patient Comments Patient Comments Pt stated he feels painfree in water and is able to increase activity w/o pain. PT-OP-F Manual Assessment Start: 09/16/18 11:20 Freq: Status: Active Protocol: Document 09/16/18 11:20 SAK (Rec: 09/22/18 16:40 SAK [id number]) Manual Assessments Soft Tissue Assessment Soft Tissue Mobility Assessment Increased soft tissue tightness bilateral lumbar paraspinals PT-OP-G Mobility & Gait Start: 09/16/18 11:20 Freq: Status: Active Protocol: Document 09/16/18 11:20 SAK (Rec: 09/22/18 16:40 SAK [id number]) OP Gait Assessment Assistive Devices Assistive Device Front Wheeled Walker Gait Deviations General Gait Pattern Antalgic Decreased Stride Length Decreased Feet Clearance Flexed Trunk Factors Limiting Gait Function Factors Limiting Gait Function Decreased Activity Tolerance Pain PT-OP-H Neuro Start: 09/16/18 11:20 Freq: Status: Active Protocol: Document 09/16/18 11:20 SAK (Rec: 09/22/18 16:40 SAK [id number]) Sensation Evaluation Comments Summary Comments decreased to LT right great toe PT-OP-J Posture/Palpation/Skin Start: 09/16/18 11:20 Freq: Status: Active Protocol: Document 09/16/18 11:20 SAK (Rec: 09/22/18 16:40 SAK [id number]) Posture Evaluation Position Standing Head/C-Spine Posture Forward Head T-Spine Posture Increased Kyphosis L-Spine Posture Decreased Lordosis Weight Distribution Decreased Wt.Bear on (R) Hip Posture (L) Externally Rotated (R) Externally Rotated Skin Assessment Incisional Assessment Incision Appearance/Comments Well-healed with no signs or symptoms of infaction PT-OP-K Range of Motion Start: 09/16/18 11:20 Freq: Status: Active Protocol: Document 09/16/18 11:20 SAK (Rec: 09/22/18 16:40 SAK [id number]) Lumbar Spine Range of Motion Lumbar Spine Active Degrees Flexion 80 Rotation Left 15 Rotation Right 15 Lateral Flexion Left 30 Lateral Flexion Right 30 Comments -5 deg ext with c/o increased pain Hip Goniometric Range of Motion Hip Measured in Degrees Left Flexion w/Knee Flexed 105 Straight Leg Raise 45 Extension 0 Internal Rotation 25 External Rotation 70 Right Flexion w/Knee Flexed 110 Straight Leg Raise 45 Extension 0 Internal Rotation 15 External Rotation 20 PT-OP-M Strength Start: 09/16/18 11:20 Freq: Status: Active Protocol: Document 09/16/18 11:20 [facility] (Rec: 09/22/18 16:40 [facility] [id number]) Trunk Strength Trunk Manual Muscle Testing Core Stabilization Poor core stabilization, difficulty activating TrA and multifidi. Knee Strength Knee Manual Muscle Testing Left Flexion (S2) 5 Normal Extension (L3) 5 Normal Right Flexion (S2) 5 Normal Extension (L3) 5 Normal Ankle/Foot Strength Ankle and Foot Manual Muscle Testing Left Dorsiflexion (L4) 4+ Good+ Plantarflexion (S1) 4+ Good+ Right Dorsiflexion (L4) 4+ Good+ Plantarflexion (S1) 4+ Good+ Toe Strength Toe Manual Muscle Testing Left Great Toe Extension 4+ Good+ Right Great Toe Extension 4- Good- PT-OP-Q Treatments Start: 09/16/18 11:20 Freq: Status: Active Protocol: Document 11/09/18 13:00 [facility] (Rec: 11/09/18 13:43 [facility] [id number]) Cardio Equipment Recumbent Stepper (Sci-Fit) Duration (Minutes) 10 Resistance 2.5 Seat Position 15 Gym Equipment Shuttle Recovery Unilateral Squats Resistance 50 Shuttle Recovery Platform Stable Reps/Time 10x2 Bilateral Squats Resistance 75 Shuttle Recovery Platform Stable Reps/Time 10x2 Sport Cord fwd,side Reps/Duration 3x ea Comments emphasis on core stab Therapeutic Exercises Supine Exercises TrA with march Reps/Minutes 10x SKTC Reps/Minutes 2x gluteal sets Reps/Minutes 10x hip ab/ER Reps/Minutes 10x HS stretch Reps/Minutes 3x Comments manual Sitting Exercises row, sh ext Equipment Used L1 TB Reps/Minutes 10x Standing Exercises HC stretch Reps/Minutes 2x shallow squat Reps/Minutes 10x sidestepping Equipment Used yellow TB Comments UE support Gait Training Gait Activity 1 Device Used none Level of Assistance level Treatment Focus gluteal activation PT-OP-R Modalities Start: 09/16/18 11:20 Freq: Status: Active Protocol: Document 11/09/18 13:00 SAK (Rec: 11/09/18 13:43 SAK [id number]) Electric Stimulation Electric Stimulation Interferential Current (IFC) Body Location bilateral lumbar paraspinals Duration (Minutes) 15 Target/Sweep Sweep High/Low High Patient Position Sitting Combined With Heat/Cold Hot Pack Ultrasound Therapy Treatment Back Treatment Duration (minutes) 8 Patient Position Sidelying Coupling Medium Ultrasound Gel Frequency Setting (mHz) 1 Mode Setting Continuous Duty Cycle 100% Intensity Setting (w/cm2) 1.4 Comments bilateral lumbar paraspinals PT-OP-S Aquatic Treatment Start: 09/16/18 11:20 Freq: Status: Active Protocol: Document 11/15/18 11:45 CLB (Rec: 11/15/18 15:26 CLB [id number]) Aquatics Treatment Pool Entry/Exit Pool Entry/Exit Method Stairs Assistance Standby Assistance Verbal Cues Water Walking forward, side Water Level Chest Level Walking Equipment handheld, floating parallel bars, [place] foam float Level of Assistance Standby Assistance Moderate Assistance Lower Extremity Exercises knee flex/ext Reps/Duration 10x Comments mod UE support squats Reps/Duration 10x Comments mod UE support circles Reps/Duration 10x Comments mod UE support hip flex/ext Reps/Duration 10x Comments mod UE support hip ab/ad Reps/Duration 10x Comments mod UE support heel toe raise Reps/Duration 10x Comments mod UE support Lower Extremity Stretches HS, ITB, hip add Equipment small ankle floats Reps/Duration 2x [place] Activities [place] Activities Bicycle Other Activities deep water hang 1'x2 Equipment [place] foam float, neck float Comments Pt able to bicycle w/o use of wall. PT-OP-T Assessment and Plan Start: 09/16/18 11:20 Freq: Status: Active Protocol: Document 11/15/18 11:45 CLB (Rec: 11/15/18 15:26 CLB [id number]) Physical Therapy Assessment Goals Strength Impairment weakness core and hips Short Term Goal (STG) Initiate therapeutic exercise program (goal met) STG Duration 2 wks Autocutter Goal (LTG) Improve strength to at least 4 +/5 throughout trunk and LE's (goal progress) LTG Duration 3 months Pain Impairment Pain level 7/10 Short Term Goal (STG) Decrease pain to no greater than 5/10 (goal progress, reports no pain when in pool for aquatic therapy) STG Duration 6 wks Autocutter Goal (LTG) Decrease pain to no greater than 3/10 LTG Duration 3 months Gait Impairment Requires use of walker, unable to walk community distances Short Term Goal (STG) Able to ambulate with straight cane short community distances (goal progress) STG Duration 6 wks Autocutter Goal (LTG) Patient able to ambulate without device for community distances. LTG Duration 3 months Activity tolerance Impairment Oswestery disability index score 52% Snf Goal (LTG) Decrease Oswestry score to no greater than 30% (goal progress) LTG Duration 3 months Assessment Summary Assessment Pt able to increase deep water bicycle laps w/o holding onto wall. Pt has increase in LBP when water walking w/o UE support but has improved with balance and comfort with water walking. Physical Therapy Plan Frequency and Duration Frequency of Treatment 1x/Week Duration of Treatment 3 months Plan of Care Start Date 11/12/18 Plan of Care End Date 02/10/19 Next Visit Focus/Plan Next Visit Plan aquatic therapy with emphasis on gait, strengthening, postural correction as tolerated.
--- NOTE | 2018-11-19 08:12 | PT.OTN ---
Current Diagnoses Radiculopathy, lumbar region (11/18/18) Physical Therapy Treatment Note PT-OP-A Visit Information Start: 09/16/18 11:20 Freq: Status: Active Protocol: Document 11/15/18 11:45 CLB (Rec: 11/15/18 15:26 CLB [id number]) Out-Patient Physical Therapy Visit Information Visit Information Visit Type Treatment Note Visit Start Time 11:00 Visit Stop Time 11:45 Total Visit Minutes 45 Number of PATIENT SUPPORT ASSOCIATE Visits 1 PT-OP-B Current Condition Start: 09/16/18 11:20 Freq: Status: Active Protocol: Document 09/16/18 11:20 SAK (Rec: 09/16/18 11:40 SAK [id number]) Current Condition History of Current Condition Onset Date 07/20/18 Current Complaints bilateral LBP, right great toe numbness History of Current Condition L4-5 medial facetectomy and foraminotomy; reports it was supposed to be day surgery, but had possible CO at end of surgery (controversy over whether had CO vs reaction to medication) but reports hypertensive when coming out of anesthetic. Has not been doing well, pain worse than prior to surgery. States now physician stating he needs right MICHELLE; has seen surgeon but nothing scheduled yet. States he is uncertain about hip surgery both due to feeling most of his pain from back and concern over his recent response to surgery. Walks better with walker; states he limps without use of walker. Some numbness right great toe. Pain worse with standing and walking, minimal with sitting. Takes 2-3 Hydrocodone per day; 1 at a time. Unable to go for walks or golf as previoiusly Prior Treatments and Tests Using heat at home, trying to walk Future Testing and Treatments Planned Sees pain clinic next week to set up appointment for nerve block. Treatment Goals Patient/Caregiver Goals Decrease pain and resume prior activities. 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 PT-OP-C Subjective Start: 09/16/18 11:20 Freq: Status: Active Protocol: Document 11/15/18 11:45 CLB (Rec: 11/15/18 15:26 CLB [id number]) OP-PT Subjective Patient Comments Patient Comments Pt stated he feels painfree in water and is able to increase activity w/o pain. PT-OP-F Manual Assessment Start: 09/16/18 11:20 Freq: Status: Active Protocol: Document 09/16/18 11:20 SAK (Rec: 09/22/18 16:40 SAK [id number]) Manual Assessments Soft Tissue Assessment Soft Tissue Mobility Assessment Increased soft tissue tightness bilateral lumbar paraspinals PT-OP-G Mobility & Gait Start: 09/16/18 11:20 Freq: Status: Active Protocol: Document 09/16/18 11:20 SAK (Rec: 09/22/18 16:40 SAK [id number]) OP Gait Assessment Assistive Devices Assistive Device Front Wheeled Walker Gait Deviations General Gait Pattern Antalgic Decreased Stride Length Decreased Feet Clearance Flexed Trunk Factors Limiting Gait Function Factors Limiting Gait Function Decreased Activity Tolerance Pain PT-OP-H Neuro Start: 09/16/18 11:20 Freq: Status: Active Protocol: Document 09/16/18 11:20 SAK (Rec: 09/22/18 16:40 SAK [id number]) Sensation Evaluation Comments Summary Comments decreased to LT right great toe PT-OP-J Posture/Palpation/Skin Start: 09/16/18 11:20 Freq: Status: Active Protocol: Document 09/16/18 11:20 SAK (Rec: 09/22/18 16:40 SAK [id number]) Posture Evaluation Position Standing Head/C-Spine Posture Forward Head T-Spine Posture Increased Kyphosis L-Spine Posture Decreased Lordosis Weight Distribution Decreased Wt.Bear on (R) Hip Posture (L) Externally Rotated (R) Externally Rotated Skin Assessment Incisional Assessment Incision Appearance/Comments Well-healed with no signs or symptoms of infaction PT-OP-K Range of Motion Start: 09/16/18 11:20 Freq: Status: Active Protocol: Document 09/16/18 11:20 SAK (Rec: 09/22/18 16:40 SAK [id number]) Lumbar Spine Range of Motion Lumbar Spine Active Degrees Flexion 80 Rotation Left 15 Rotation Right 15 Lateral Flexion Left 30 Lateral Flexion Right 30 Comments -5 deg ext with c/o increased pain Hip Goniometric Range of Motion Hip Measured in Degrees Left Flexion w/Knee Flexed 105 Straight Leg Raise 45 Extension 0 Internal Rotation 25 External Rotation 70 Right Flexion w/Knee Flexed 110 Straight Leg Raise 45 Extension 0 Internal Rotation 15 External Rotation 20 PT-OP-M Strength Start: 09/16/18 11:20 Freq: Status: Active Protocol: Document 09/16/18 11:20 [facility] (Rec: 09/22/18 16:40 [facility] [id number]) Trunk Strength Trunk Manual Muscle Testing Core Stabilization Poor core stabilization, difficulty activating TrA and multifidi. Knee Strength Knee Manual Muscle Testing Left Flexion (S2) 5 Normal Extension (L3) 5 Normal Right Flexion (S2) 5 Normal Extension (L3) 5 Normal Ankle/Foot Strength Ankle and Foot Manual Muscle Testing Left Dorsiflexion (L4) 4+ Good+ Plantarflexion (S1) 4+ Good+ Right Dorsiflexion (L4) 4+ Good+ Plantarflexion (S1) 4+ Good+ Toe Strength Toe Manual Muscle Testing Left Great Toe Extension 4+ Good+ Right Great Toe Extension 4- Good- PT-OP-Q Treatments Start: 09/16/18 11:20 Freq: Status: Active Protocol: Document 11/09/18 13:00 [facility] (Rec: 11/09/18 13:43 [facility] [id number]) Cardio Equipment Recumbent Stepper (Sci-Fit) Duration (Minutes) 10 Resistance 2.5 Seat Position 15 Gym Equipment Shuttle Recovery Unilateral Squats Resistance 50 Shuttle Recovery Platform Stable Reps/Time 10x2 Bilateral Squats Resistance 75 Shuttle Recovery Platform Stable Reps/Time 10x2 Sport Cord fwd,side Reps/Duration 3x ea Comments emphasis on core stab Therapeutic Exercises Supine Exercises TrA with march Reps/Minutes 10x SKTC Reps/Minutes 2x gluteal sets Reps/Minutes 10x hip ab/ER Reps/Minutes 10x HS stretch Reps/Minutes 3x Comments manual Sitting Exercises row, sh ext Equipment Used L1 TB Reps/Minutes 10x Standing Exercises HC stretch Reps/Minutes 2x shallow squat Reps/Minutes 10x sidestepping Equipment Used yellow TB Comments UE support Gait Training Gait Activity 1 Device Used none Level of Assistance level Treatment Focus gluteal activation PT-OP-R Modalities Start: 09/16/18 11:20 Freq: Status: Active Protocol: Document 11/09/18 13:00 SAK (Rec: 11/09/18 13:43 SAK [id number]) Electric Stimulation Electric Stimulation Interferential Current (IFC) Body Location bilateral lumbar paraspinals Duration (Minutes) 15 Target/Sweep Sweep High/Low High Patient Position Sitting Combined With Heat/Cold Hot Pack Ultrasound Therapy Treatment Back Treatment Duration (minutes) 8 Patient Position Sidelying Coupling Medium Ultrasound Gel Frequency Setting (mHz) 1 Mode Setting Continuous Duty Cycle 100% Intensity Setting (w/cm2) 1.4 Comments bilateral lumbar paraspinals PT-OP-S Aquatic Treatment Start: 09/16/18 11:20 Freq: Status: Active Protocol: Document 11/15/18 11:45 CLB (Rec: 11/15/18 15:26 CLB [id number]) Aquatics Treatment Pool Entry/Exit Pool Entry/Exit Method Stairs Assistance Standby Assistance Verbal Cues Water Walking forward, side Water Level Chest Level Walking Equipment handheld, floating parallel bars, [place] foam float Level of Assistance Standby Assistance Moderate Assistance Lower Extremity Exercises knee flex/ext Reps/Duration 10x Comments mod UE support squats Reps/Duration 10x Comments mod UE support circles Reps/Duration 10x Comments mod UE support hip flex/ext Reps/Duration 10x Comments mod UE support hip ab/ad Reps/Duration 10x Comments mod UE support heel toe raise Reps/Duration 10x Comments mod UE support Lower Extremity Stretches HS, ITB, hip add Equipment small ankle floats Reps/Duration 2x [place] Activities [place] Activities Bicycle Other Activities deep water hang 1'x2 Equipment [place] foam float, neck float Comments Pt able to bicycle w/o use of wall. PT-OP-T Assessment and Plan Start: 09/16/18 11:20 Freq: Status: Active Protocol: Document 11/15/18 11:45 CLB (Rec: 11/15/18 15:26 CLB [id number]) Physical Therapy Assessment Goals Strength Impairment weakness core and hips Short Term Goal (STG) Initiate therapeutic exercise program (goal met) STG Duration 2 wks Brood Station Manager Goal (LTG) Improve strength to at least 4 +/5 throughout trunk and LE's (goal progress) LTG Duration 3 months Pain Impairment Pain level 7/10 Short Term Goal (STG) Decrease pain to no greater than 5/10 (goal progress, reports no pain when in pool for aquatic therapy) STG Duration 6 wks Brood Station Manager Goal (LTG) Decrease pain to no greater than 3/10 LTG Duration 3 months Gait Impairment Requires use of walker, unable to walk community distances Short Term Goal (STG) Able to ambulate with straight cane short community distances (goal progress) STG Duration 6 wks Brood Station Manager Goal (LTG) Patient able to ambulate without device for community distances. LTG Duration 3 months Activity tolerance Impairment Oswestery disability index score 52% Senior Living Goal (LTG) Decrease Oswestry score to no greater than 30% (goal progress) LTG Duration 3 months Assessment Summary Assessment Pt able to increase deep water bicycle laps w/o holding onto wall. Pt has increase in LBP when water walking w/o UE support but has improved with balance and comfort with water walking. Physical Therapy Plan Frequency and Duration Frequency of Treatment 1x/Week Duration of Treatment 3 months Plan of Care Start Date 11/12/18 Plan of Care End Date 02/10/19 Next Visit Focus/Plan Next Visit Plan aquatic therapy with emphasis on gait, strengthening, postural correction as tolerated.
--- NOTE | 2018-11-19 08:14 | PT.OPPOC ---
Current Diagnoses Radiculopathy, lumbar region (11/18/18) Provider Visit Care Team Role Provider Type Chris Fallon MD Family Provider Non-Staff Specialty: Urology Address: [address], [place], [address] Email: Carolina Dang DO Attending Provider Physician Primary Care Provider Specialty: Family Practice Address: [facility] [place], [address] Email: [email or web address] Plan Of Care PT-OP-T Assessment and Plan Start: 09/16/18 11:20 Freq: Status: Active Protocol: Document 11/19/18 08:02 RUSTY (Rec: 11/19/18 08:14 RUSTY [id number]) Physical Therapy Assessment Goals Strength Impairment weakness core and hips Short Term Goal (STG) Initiate therapeutic exercise program (goal met) STG Duration 2 wks Alf Goal (LTG) Improve strength to at least 4 +/5 throughout trunk and LE's (goal progress) LTG Duration 3 months Pain Impairment Pain level 7/10 Short Term Goal (STG) Decrease pain to no greater than 5/10 (goal progress, reports no pain when in pool for aquatic therapy) STG Duration 6 wks Tool Chaser Goal (LTG) Decrease pain to no greater than 3/10 LTG Duration 3 months Gait Impairment Requires use of walker, unable to walk community distances Short Term Goal (STG) Able to ambulate with straight cane short community distances (goal progress) STG Duration 6 wks Tool Chaser Goal (LTG) Patient able to ambulate without device for community distances. LTG Duration 3 months Activity tolerance Impairment Oswestery disability index score 52% Tool Chaser Goal (LTG) Decrease Oswestry score to no greater than 30% (goal progress) LTG Duration 3 months Progress Towards Goals Progress Towards Goals Slow Progress due to Activity Tolerance Slow Progress due to Attendance Issues Progress Comments Jori is making some progress toward goals though his function is still significantly limited due to pain with standing and walking . His forward bent posture is highly contributory to this but he has difficult with correction of his posture. We recently initiate aquatic therapy and he reports good benefit from this treatment; minimal to no pain while in pool, able to tolerate 45 min of gait and ther ex in vertical position, and reporting decrease in pain for several hours afterward. He has requested increased frequency of aquatic therapy, in combination with land-based PT. [ End ] Assessment Summary Assessment Patient now walking short distances without the use of his FWW, increasing compliance to HEP.I feel Jori would benefit from continued PT for rehab s/p spinal surgery, with increased frequency of aquatic therapy as that has been found to be most effective for him. [ End ] Physical Therapy Plan Frequency and Duration Frequency of Treatment 3x/Week Duration of Treatment 3 months Plan of Care Start Date 11/12/18 Plan of Care End Date 02/10/19 Therapeutic Interventions Therapeutic Interventions Aquatic Therapy Home Exercise Program Manual Therapy Neuromuscular Re-education Patient/Caregiver Education Self-Care/Home Management Soft Tissue Mobilization Taping Therapeutic Activities Therapeutic Exercises Next Visit Focus/Plan Next Note Type Treatment Note Next Visit Plan aquatic therapy with emphasis on gait, strengthening, postural correction as tolerated. Plan of Care Dates Plan of Care Start Date 11/12/18 Plan of Care End Date 02/10/19 Please Sign and Return: I have reviewed this Plan of Care and certify that the skilled therapy services above are required to meet the patient?s needs. Physician Signature Date Printed Name and Credentials Clinical Instructor Signature Printed Name and Credentials
--- NOTE | 2018-11-19 15:07 | PT.OTN ---
Current Diagnoses Radiculopathy, lumbar region (11/19/18) Physical Therapy Treatment Note PT-OP-A Visit Information Start: 09/16/18 11:20 Freq: Status: Active Protocol: Document 11/19/18 11:45 SAK (Rec: 11/19/18 15:03 SAK [id number]) Out-Patient Physical Therapy Visit Information Visit Information Visit Type Aquatic Treatment Note Visit Start Time 11:45 Visit Stop Time 12:30 Total Visit Minutes 45 Visit Number 13 Number of PATENT CLERK Visits 0 PT-OP-B Current Condition Start: 09/16/18 11:20 Freq: Status: Active Protocol: Document 09/16/18 11:20 SAK (Rec: 09/16/18 11:40 [facility] [id number]) Current Condition History of Current Condition Onset Date 07/20/18 Current Complaints bilateral LBP, right great toe numbness History of Current Condition L4-5 medial facetectomy and foraminotomy; reports it was supposed to be day surgery, but had possible AR at end of surgery (controversy over whether had AR vs reaction to medication) but reports hypertensive when coming out of anesthetic. Has not been doing well, pain worse than prior to surgery. States now physician stating he needs right MICHELLE; has seen surgeon but nothing scheduled yet. States he is uncertain about hip surgery both due to feeling most of his pain from back and concern over his recent response to surgery. Walks better with walker; states he limps without use of walker. Some numbness right great toe. Pain worse with standing and walking, minimal with sitting. Takes 2-3 Hydrocodone per day; 1 at a time. Unable to go for walks or golf as previoiusly Prior Treatments and Tests Using heat at home, trying to walk Future Testing and Treatments Planned Sees pain clinic next week to set up appointment for nerve block. Treatment Goals Patient/Caregiver Goals Decrease pain and resume prior activities. 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 PT-OP-C Subjective Start: 09/16/18 11:20 Freq: Status: Active Protocol: Document 11/19/18 11:45 SAK (Rec: 11/19/18 15:03 SAK [id number]) OP-PT Subjective Patient Comments Patient Comments More sore on left side after increasing activity in clinic PT yesterday. PT-OP-F Manual Assessment Start: 09/16/18 11:20 Freq: Status: Active Protocol: Document 09/16/18 11:20 SAK (Rec: 09/22/18 16:40 SAK [id number]) Manual Assessments Soft Tissue Assessment Soft Tissue Mobility Assessment Increased soft tissue tightness bilateral lumbar paraspinals PT-OP-G Mobility & Gait Start: 09/16/18 11:20 Freq: Status: Active Protocol: Document 09/16/18 11:20 SAK (Rec: 09/22/18 16:40 SAK [id number]) OP Gait Assessment Assistive Devices Assistive Device Front Wheeled Walker Gait Deviations General Gait Pattern Antalgic Decreased Stride Length Decreased Feet Clearance Flexed Trunk Factors Limiting Gait Function Factors Limiting Gait Function Decreased Activity Tolerance Pain PT-OP-H Neuro Start: 09/16/18 11:20 Freq: Status: Active Protocol: Document 09/16/18 11:20 SAK (Rec: 09/22/18 16:40 SAK [id number]) Sensation Evaluation Comments Summary Comments decreased to LT right great toe PT-OP-J Posture/Palpation/Skin Start: 09/16/18 11:20 Freq: Status: Active Protocol: Document 09/16/18 11:20 SAK (Rec: 09/22/18 16:40 SAK [id number]) Posture Evaluation Position Standing Head/C-Spine Posture Forward Head T-Spine Posture Increased Kyphosis L-Spine Posture Decreased Lordosis Weight Distribution Decreased Wt.Bear on (R) Hip Posture (L) Externally Rotated (R) Externally Rotated Skin Assessment Incisional Assessment Incision Appearance/Comments Well-healed with no signs or symptoms of infaction PT-OP-K Range of Motion Start: 09/16/18 11:20 Freq: Status: Active Protocol: Document 09/16/18 11:20 SAK (Rec: 09/22/18 16:40 SAK [id number]) Lumbar Spine Range of Motion Lumbar Spine Active Degrees Flexion 80 Rotation Left 15 Rotation Right 15 Lateral Flexion Left 30 Lateral Flexion Right 30 Comments -5 deg ext with c/o increased pain Hip Goniometric Range of Motion Hip Measured in Degrees Left Flexion w/Knee Flexed 105 Straight Leg Raise 45 Extension 0 Internal Rotation 25 External Rotation 70 Right Flexion w/Knee Flexed 110 Straight Leg Raise 45 Extension 0 Internal Rotation 15 External Rotation 20 PT-OP-M Strength Start: 09/16/18 11:20 Freq: Status: Active Protocol: Document 09/16/18 11:20 [facility] (Rec: 09/22/18 16:40 [facility] [id number]) Trunk Strength Trunk Manual Muscle Testing Core Stabilization Poor core stabilization, difficulty activating TrA and multifidi. Knee Strength Knee Manual Muscle Testing Left Flexion (S2) 5 Normal Extension (L3) 5 Normal Right Flexion (S2) 5 Normal Extension (L3) 5 Normal Ankle/Foot Strength Ankle and Foot Manual Muscle Testing Left Dorsiflexion (L4) 4+ Good+ Plantarflexion (S1) 4+ Good+ Right Dorsiflexion (L4) 4+ Good+ Plantarflexion (S1) 4+ Good+ Toe Strength Toe Manual Muscle Testing Left Great Toe Extension 4+ Good+ Right Great Toe Extension 4- Good- PT-OP-Q Treatments Start: 09/16/18 11:20 Freq: Status: Active Protocol: Document 11/18/18 14:30 [facility] (Rec: 11/19/18 08:14 [facility] [id number]) Cardio Equipment Recumbent Stepper (Sci-Fit) Duration (Minutes) 10 Resistance 2.5 Seat Position 15 Gym Equipment Shuttle Recovery Unilateral Squats Resistance 50 Shuttle Recovery Platform Stable Reps/Time 10x2 Bilateral Squats Resistance 75 Shuttle Recovery Platform Stable Reps/Time 10x2 Shuttle Balance chains yellow Details WBOS EO and EC Reps/Duration 4 min Comments emphasis on core stab Therapeutic Exercises Supine Exercises TrA with march Reps/Minutes 10x SKTC Reps/Minutes 2x HS stretch Reps/Minutes 2x Comments manual Sidelying Exercises clamshell Reps/Minutes 10x Standing Exercises step-ups Reps/Minutes 5x ea Comments emphasis on gluteal activation HC stretch Reps/Minutes 2x shallow squat Reps/Minutes 10x PT-OP-R Modalities Start: 09/16/18 11:20 Freq: Status: Active Protocol: Document 11/18/18 14:30 [facility] (Rec: 11/19/18 08:14 [facility] [id number]) Electric Stimulation Electric Stimulation Interferential Current (IFC) Body Location bilateral lumbar paraspinals Duration (Minutes) 15 Target/Sweep Sweep High/Low High Patient Position Sitting Combined With Heat/Cold Hot Pack Ultrasound Therapy Treatment Back Treatment Duration (minutes) 8 Patient Position Sidelying Coupling Medium Ultrasound Gel Frequency Setting (mHz) 1 Mode Setting Continuous Duty Cycle 100% Intensity Setting (w/cm2) 1.4 Comments bilateral lumbar paraspinals PT-OP-S Aquatic Treatment Start: 09/16/18 11:20 Freq: Status: Active Protocol: Document 11/19/18 11:45 [facility] (Rec: 11/19/18 15:06 [facility] [id number]) Aquatics Treatment Pool Entry/Exit Pool Entry/Exit Method Stairs Assistance Standby Assistance Verbal Cues Water Walking forward, side Water Level Chest Level Level of Assistance Standby Assistance Contact Guard Assistance Verbal Cues Lower Extremity Exercises knee flex/ext Reps/Duration 10x squats Reps/Duration 10x Comments mod UE support circles Details large/slow then small/fast Reps/Duration 10x ea direction Comments mod UE support hip flex/ext Details large/slow then small/fast Reps/Duration 10x Comments mod UE support hip ab/ad Details large/slow then small/fast Reps/Duration 10x Comments mod UE support Lower Extremity Stretches HS, ITB, hip add Equipment small ankle floats Reps/Duration 2x Upper Extremity Exercises sh flex/ext Reps/Duration 10x Comments DLS emphasis shoulder hor ab/ad Reps/Duration 10x Comments DLS emphasis [place] Activities [place] Activities Bicycle Other Activities deep water hang 1'x2 Equipment [place] foam float, neck float Comments minimal to no UE support PT-OP-T Assessment and Plan Start: 09/16/18 11:20 Freq: Status: Active Protocol: Document 11/19/18 11:45 [facility] (Rec: 11/19/18 15:03 [facility] [id number]) Physical Therapy Assessment Goals Strength Impairment weakness core and hips Short Term Goal (STG) Initiate therapeutic exercise program (goal met) STG Duration 2 wks [facility] Goal (LTG) Improve strength to at least 4 +/5 throughout trunk and LE's (goal progress) LTG Duration 3 months Pain Impairment Pain level 7/10 Short Term Goal (STG) Decrease pain to no greater than 5/10 (goal progress, reports no pain when in pool for aquatic therapy) STG Duration 6 wks Technology Education Teacher Goal (LTG) Decrease pain to no greater than 3/10 LTG Duration 3 months Gait Impairment Requires use of walker, unable to walk community distances Short Term Goal (STG) Able to ambulate with straight cane short community distances (goal progress) STG Duration 6 wks Technology Education Teacher Goal (LTG) Patient able to ambulate without device for community distances. LTG Duration 3 months Activity tolerance Impairment Oswestery disability index score 52% Technology Education Teacher Goal (LTG) Decrease Oswestry score to no greater than 30% (goal progress) LTG Duration 3 months Assessment Summary Assessment Tolerated progression of aquatic therapy well today. Physical Therapy Plan Frequency and Duration Frequency of Treatment 3x/Week Duration of Treatment 3 months Plan of Care Start Date 11/12/18 Plan of Care End Date 02/10/19 Therapeutic Interventions Therapeutic Interventions Aquatic Therapy Home Exercise Program Manual Therapy Neuromuscular Re-education Patient/Caregiver Education Self-Care/Home Management Soft Tissue Mobilization Taping Therapeutic Activities Therapeutic Exercises Next Visit Focus/Plan Next Note Type Treatment Note Next Visit Plan Land-based PT session next unless opening occurs in aquatic PT.
--- NOTE | 2018-11-25 08:34 | PT.OTN ---
Current Diagnoses Radiculopathy, lumbar region (11/24/18) Physical Therapy Treatment Note PT-OP-A Visit Information Start: 09/16/18 11:20 Freq: Status: Active Protocol: Document 11/25/18 08:28 [facility] (Rec: 11/25/18 08:34 [facility] [id number]) Out-Patient Physical Therapy Visit Information Visit Information Visit Type Aquatic Treatment Note Visit Start Time 11:45 Visit Stop Time 12:30 Total Visit Minutes 45 Visit Number 14/20 Number of ACADEMIC COACH Visits 0 PT-OP-B Current Condition Start: 09/16/18 11:20 Freq: Status: Active Protocol: Document 09/16/18 11:20 [facility] (Rec: 09/16/18 11:40 [facility] [id number]) Current Condition History of Current Condition Onset Date 07/20/18 Current Complaints bilateral LBP, right great toe numbness History of Current Condition L4-5 medial facetectomy and foraminotomy; reports it was supposed to be day surgery, but had possible NH at end of surgery (controversy over whether had NH vs reaction to medication) but reports hypertensive when coming out of anesthetic. Has not been doing well, pain worse than prior to surgery. States now physician stating he needs right MICHELLE; has seen surgeon but nothing scheduled yet. States he is uncertain about hip surgery both due to feeling most of his pain from back and concern over his recent response to surgery. Walks better with walker; states he limps without use of walker. Some numbness right great toe. Pain worse with standing and walking, minimal with sitting. Takes 2-3 Hydrocodone per day; 1 at a time. Unable to go for walks or golf as previoiusly Prior Treatments and Tests Using heat at home, trying to walk Future Testing and Treatments Planned Sees pain clinic next week to set up appointment for nerve block. Treatment Goals Patient/Caregiver Goals Decrease pain and resume prior activities. 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 PT-OP-C Subjective Start: 09/16/18 11:20 Freq: Status: Active Protocol: Document 11/25/18 08:28 SAK (Rec: 11/25/18 08:34 SAK [id number]) OP-PT Subjective Patient Comments Patient Comments Glad to be back in pool for aquatic therapy; it's the only place I can be vertical for this long. Sees pain specialist tomorrow in [place] . PT-OP-F Manual Assessment Start: 09/16/18 11:20 Freq: Status: Active Protocol: Document 09/16/18 11:20 SAK (Rec: 09/22/18 16:40 SAK [id number]) Manual Assessments Soft Tissue Assessment Soft Tissue Mobility Assessment Increased soft tissue tightness bilateral lumbar paraspinals PT-OP-G Mobility & Gait Start: 09/16/18 11:20 Freq: Status: Active Protocol: Document 09/16/18 11:20 SAK (Rec: 09/22/18 16:40 SAK [id number]) OP Gait Assessment Assistive Devices Assistive Device Front Wheeled Walker Gait Deviations General Gait Pattern Antalgic Decreased Stride Length Decreased Feet Clearance Flexed Trunk Factors Limiting Gait Function Factors Limiting Gait Function Decreased Activity Tolerance Pain PT-OP-H Neuro Start: 09/16/18 11:20 Freq: Status: Active Protocol: Document 09/16/18 11:20 SAK (Rec: 09/22/18 16:40 SAK [id number]) Sensation Evaluation Comments Summary Comments decreased to LT right great toe PT-OP-J Posture/Palpation/Skin Start: 09/16/18 11:20 Freq: Status: Active Protocol: Document 09/16/18 11:20 SAK (Rec: 09/22/18 16:40 SAK [id number]) Posture Evaluation Position Standing Head/C-Spine Posture Forward Head T-Spine Posture Increased Kyphosis L-Spine Posture Decreased Lordosis Weight Distribution Decreased Wt.Bear on (R) Hip Posture (L) Externally Rotated (R) Externally Rotated Skin Assessment Incisional Assessment Incision Appearance/Comments Well-healed with no signs or symptoms of infaction PT-OP-K Range of Motion Start: 09/16/18 11:20 Freq: Status: Active Protocol: Document 09/16/18 11:20 SAK (Rec: 09/22/18 16:40 SAK [id number]) Lumbar Spine Range of Motion Lumbar Spine Active Degrees Flexion 80 Rotation Left 15 Rotation Right 15 Lateral Flexion Left 30 Lateral Flexion Right 30 Comments -5 deg ext with c/o increased pain Hip Goniometric Range of Motion Hip Measured in Degrees Left Flexion w/Knee Flexed 105 Straight Leg Raise 45 Extension 0 Internal Rotation 25 External Rotation 70 Right Flexion w/Knee Flexed 110 Straight Leg Raise 45 Extension 0 Internal Rotation 15 External Rotation 20 PT-OP-M Strength Start: 09/16/18 11:20 Freq: Status: Active Protocol: Document 09/16/18 11:20 [facility] (Rec: 09/22/18 16:40 [facility] [id number]) Trunk Strength Trunk Manual Muscle Testing Core Stabilization Poor core stabilization, difficulty activating TrA and multifidi. Knee Strength Knee Manual Muscle Testing Left Flexion (S2) 5 Normal Extension (L3) 5 Normal Right Flexion (S2) 5 Normal Extension (L3) 5 Normal Ankle/Foot Strength Ankle and Foot Manual Muscle Testing Left Dorsiflexion (L4) 4+ Good+ Plantarflexion (S1) 4+ Good+ Right Dorsiflexion (L4) 4+ Good+ Plantarflexion (S1) 4+ Good+ Toe Strength Toe Manual Muscle Testing Left Great Toe Extension 4+ Good+ Right Great Toe Extension 4- Good- PT-OP-Q Treatments Start: 09/16/18 11:20 Freq: Status: Active Protocol: Document 11/18/18 14:30 [facility] (Rec: 11/19/18 08:14 [facility] [id number]) Cardio Equipment Recumbent Stepper (Sci-Fit) Duration (Minutes) 10 Resistance 2.5 Seat Position 15 Gym Equipment Shuttle Recovery Unilateral Squats Resistance 50 Shuttle Recovery Platform Stable Reps/Time 10x2 Bilateral Squats Resistance 75 Shuttle Recovery Platform Stable Reps/Time 10x2 Shuttle Balance chains yellow Details WBOS EO and EC Reps/Duration 4 min Comments emphasis on core stab Therapeutic Exercises Supine Exercises TrA with march Reps/Minutes 10x SKTC Reps/Minutes 2x HS stretch Reps/Minutes 2x Comments manual Sidelying Exercises clamshell Reps/Minutes 10x Standing Exercises step-ups Reps/Minutes 5x ea Comments emphasis on gluteal activation HC stretch Reps/Minutes 2x shallow squat Reps/Minutes 10x PT-OP-R Modalities Start: 09/16/18 11:20 Freq: Status: Active Protocol: Document 11/18/18 14:30 [facility] (Rec: 11/19/18 08:14 [facility] [id number]) Electric Stimulation Electric Stimulation Interferential Current (IFC) Body Location bilateral lumbar paraspinals Duration (Minutes) 15 Target/Sweep Sweep High/Low High Patient Position Sitting Combined With Heat/Cold Hot Pack Ultrasound Therapy Treatment Back Treatment Duration (minutes) 8 Patient Position Sidelying Coupling Medium Ultrasound Gel Frequency Setting (mHz) 1 Mode Setting Continuous Duty Cycle 100% Intensity Setting (w/cm2) 1.4 Comments bilateral lumbar paraspinals PT-OP-S Aquatic Treatment Start: 09/16/18 11:20 Freq: Status: Active Protocol: Document 11/25/18 08:28 [facility] (Rec: 11/25/18 08:34 [facility] [id number]) Aquatics Treatment Pool Entry/Exit Pool Entry/Exit Method Stairs Assistance Standby Assistance Verbal Cues Water Walking backward Water Level Chest Level Walking Equipment [place] Float Level of Assistance Standby Assistance march Water Level Chest Level Walking Equipment [place] Float Level of Assistance Standby Assistance forward, side Water Level Chest Level Walking Equipment [place] Float Level of Assistance Standby Assistance Verbal Cues Lower Extremity Exercises knee flex/ext Reps/Duration 10x squats Reps/Duration 15x Comments mod UE support circles Details large/slow then small/fast Reps/Duration 10x ea direction Comments mod UE support hip flex/ext Details large/slow then small/fast Reps/Duration 10x Comments mod UE support hip ab/ad Details large/slow then small/fast Reps/Duration 10x Comments mod UE support heel toe raise Reps/Duration 10x Comments mod UE support Lower Extremity Stretches HS, ITB, hip add Equipment Small Noodle Reps/Duration 2x Upper Extremity Exercises sh flex/ext Reps/Duration 10x Comments DLS emphasis shoulder hor ab/ad Reps/Duration 10x Comments DLS emphasis [place] Activities [place] Activities Bicycle Hip Abduction/Adduction Other Activities deep water hang 1'x2 Equipment [place] foam float, neck float Duration 20 min Comments minimal to no UE support PT-OP-T Assessment and Plan Start: 09/16/18 11:20 Freq: Status: Active Protocol: Document 11/25/18 08:28 [facility] (Rec: 11/25/18 08:34 [facility] [id number]) Physical Therapy Assessment Goals Strength Impairment weakness core and hips Short Term Goal (STG) Initiate therapeutic exercise program (goal met) STG Duration 2 wks [facility] Goal (LTG) Improve strength to at least 4 +/5 throughout trunk and LE's (goal progress) LTG Duration 3 months Pain Impairment Pain level 7/10 Short Term Goal (STG) Decrease pain to no greater than 5/10 (goal progress, reports no pain when in pool for aquatic therapy) STG Duration 6 wks Deputy Insurance Commissioner Goal (LTG) Decrease pain to no greater than 3/10 LTG Duration 3 months Gait Impairment Requires use of walker, unable to walk community distances Short Term Goal (STG) Able to ambulate with straight cane short community distances (goal progress) STG Duration 6 wks [facility] Goal (LTG) Patient able to ambulate without device for community distances. LTG Duration 3 months Activity tolerance Impairment Oswestery disability index score 52% [facility] Goal (LTG) Decrease Oswestry score to no greater than 30% (goal progress) LTG Duration 3 months Assessment Summary Assessment Tolerated increased deep water activity well with decreased assistance required and improving ability to stabilize spine. Increased repetitions of squats Physical Therapy Plan Frequency and Duration Frequency of Treatment 3x/Week Duration of Treatment 3 months Plan of Care Start Date 11/12/18 Plan of Care End Date 02/10/19 Therapeutic Interventions Therapeutic Interventions Aquatic Therapy Home Exercise Program Manual Therapy Neuromuscular Re-education Patient/Caregiver Education Self-Care/Home Management Soft Tissue Mobilization Taping Therapeutic Activities Therapeutic Exercises Modalities Cold Pack/Ice Massage Electric Stimulation Hot Packs Ultrasound Next Visit Focus/Plan Next Note Type Treatment Note Next Visit Plan Continue PT primarily aquatic therapy as tolerated.
--- NOTE | 2018-12-03 15:42 | PT.OTN ---
Current Diagnoses Radiculopathy, lumbar region (12/03/18) Physical Therapy Treatment Note PT-OP-A Visit Information Start: 09/16/18 11:20 Freq: Status: Active Protocol: Document 12/03/18 12:30 LJ (Rec: 12/03/18 15:42 LJ [email or web address]) Out-Patient Physical Therapy Visit Information Visit Information Visit Type Aquatic Treatment Note Visit Start Time 12:30 Visit Stop Time 13:15 Total Visit Minutes 45 Visit Number Number of YARD SWITCH OPERATOR Visits 1 PT-OP-B Current Condition Start: 09/16/18 11:20 Freq: Status: Active Protocol: Document 09/16/18 11:20 SAK (Rec: 09/16/18 11:40 SAK [id number]) Current Condition History of Current Condition Onset Date 07/20/18 Current Complaints bilateral LBP, right great toe numbness History of Current Condition L4-5 medial facetectomy and foraminotomy; reports it was supposed to be day surgery, but had possible ID at end of surgery (controversy over whether had ID vs reaction to medication) but reports hypertensive when coming out of anesthetic. Has not been doing well, pain worse than prior to surgery. States now physician stating he needs right MICHELLE; has seen surgeon but nothing scheduled yet. States he is uncertain about hip surgery both due to feeling most of his pain from back and concern over his recent response to surgery. Walks better with walker; states he limps without use of walker. Some numbness right great toe. Pain worse with standing and walking, minimal with sitting. Takes 2-3 Hydrocodone per day; 1 at a time. Unable to go for walks or golf as previoiusly Prior Treatments and Tests Using heat at home, trying to walk Future Testing and Treatments Planned Sees pain clinic next week to set up appointment for nerve block. Treatment Goals Patient/Caregiver Goals Decrease pain and resume prior activities. 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 PT-OP-C Subjective Start: 09/16/18 11:20 Freq: Status: Active Protocol: Document 12/03/18 12:30 LJ (Rec: 12/03/18 15:42 LJ [id number]) OP-PT Subjective Patient Comments Patient Comments States aquatic therapy allows him to exercise in a way he can't on land PT-OP-F Manual Assessment Start: 09/16/18 11:20 Freq: Status: Active Protocol: Document 09/16/18 11:20 SAK (Rec: 09/22/18 16:40 SAK [id number]) Manual Assessments Soft Tissue Assessment Soft Tissue Mobility Assessment Increased soft tissue tightness bilateral lumbar paraspinals PT-OP-G Mobility & Gait Start: 09/16/18 11:20 Freq: Status: Active Protocol: Document 09/16/18 11:20 SAK (Rec: 09/22/18 16:40 SAK [id number]) OP Gait Assessment Assistive Devices Assistive Device Front Wheeled Walker Gait Deviations General Gait Pattern Antalgic Decreased Stride Length Decreased Feet Clearance Flexed Trunk Factors Limiting Gait Function Factors Limiting Gait Function Decreased Activity Tolerance Pain PT-OP-H Neuro Start: 09/16/18 11:20 Freq: Status: Active Protocol: Document 09/16/18 11:20 SAK (Rec: 09/22/18 16:40 SAK [id number]) Sensation Evaluation Comments Summary Comments decreased to LT right great toe PT-OP-J Posture/Palpation/Skin Start: 09/16/18 11:20 Freq: Status: Active Protocol: Document 09/16/18 11:20 SAK (Rec: 09/22/18 16:40 SAK [id number]) Posture Evaluation Position Standing Head/C-Spine Posture Forward Head T-Spine Posture Increased Kyphosis L-Spine Posture Decreased Lordosis Weight Distribution Decreased Wt.Bear on (R) Hip Posture (L) Externally Rotated (R) Externally Rotated Skin Assessment Incisional Assessment Incision Appearance/Comments Well-healed with no signs or symptoms of infaction PT-OP-K Range of Motion Start: 09/16/18 11:20 Freq: Status: Active Protocol: Document 09/16/18 11:20 SAK (Rec: 09/22/18 16:40 SAK [id number]) Lumbar Spine Range of Motion Lumbar Spine Active Degrees Flexion 80 Rotation Left 15 Rotation Right 15 Lateral Flexion Left 30 Lateral Flexion Right 30 Comments -5 deg ext with c/o increased pain Hip Goniometric Range of Motion Hip Measured in Degrees Left Flexion w/Knee Flexed 105 Straight Leg Raise 45 Extension 0 Internal Rotation 25 External Rotation 70 Right Flexion w/Knee Flexed 110 Straight Leg Raise 45 Extension 0 Internal Rotation 15 External Rotation 20 PT-OP-M Strength Start: 09/16/18 11:20 Freq: Status: Active Protocol: Document 09/16/18 11:20 [facility] (Rec: 09/22/18 16:40 [facility] [id number]) Trunk Strength Trunk Manual Muscle Testing Core Stabilization Poor core stabilization, difficulty activating TrA and multifidi. Knee Strength Knee Manual Muscle Testing Left Flexion (S2) 5 Normal Extension (L3) 5 Normal Right Flexion (S2) 5 Normal Extension (L3) 5 Normal Ankle/Foot Strength Ankle and Foot Manual Muscle Testing Left Dorsiflexion (L4) 4+ Good+ Plantarflexion (S1) 4+ Good+ Right Dorsiflexion (L4) 4+ Good+ Plantarflexion (S1) 4+ Good+ Toe Strength Toe Manual Muscle Testing Left Great Toe Extension 4+ Good+ Right Great Toe Extension 4- Good- PT-OP-Q Treatments Start: 09/16/18 11:20 Freq: Status: Active Protocol: Document 11/18/18 14:30 [facility] (Rec: 11/19/18 08:14 [facility] [id number]) Cardio Equipment Recumbent Stepper (Sci-Fit) Duration (Minutes) 10 Resistance 2.5 Seat Position 15 Gym Equipment Shuttle Recovery Unilateral Squats Resistance 50 Shuttle Recovery Platform Stable Reps/Time 10x2 Bilateral Squats Resistance 75 Shuttle Recovery Platform Stable Reps/Time 10x2 Shuttle Balance chains yellow Details WBOS EO and EC Reps/Duration 4 min Comments emphasis on core stab Therapeutic Exercises Supine Exercises TrA with march Reps/Minutes 10x SKTC Reps/Minutes 2x HS stretch Reps/Minutes 2x Comments manual Sidelying Exercises clamshell Reps/Minutes 10x Standing Exercises step-ups Reps/Minutes 5x ea Comments emphasis on gluteal activation HC stretch Reps/Minutes 2x shallow squat Reps/Minutes 10x PT-OP-R Modalities Start: 09/16/18 11:20 Freq: Status: Active Protocol: Document 11/18/18 14:30 RUSTY (Rec: 11/19/18 08:14 [facility] [id number]) Electric Stimulation Electric Stimulation Interferential Current (IFC) Body Location bilateral lumbar paraspinals Duration (Minutes) 15 Target/Sweep Sweep High/Low High Patient Position Sitting Combined With Heat/Cold Hot Pack Ultrasound Therapy Treatment Back Treatment Duration (minutes) 8 Patient Position Sidelying Coupling Medium Ultrasound Gel Frequency Setting (mHz) 1 Mode Setting Continuous Duty Cycle 100% Intensity Setting (w/cm2) 1.4 Comments bilateral lumbar paraspinals PT-OP-S Aquatic Treatment Start: 09/16/18 11:20 Freq: Status: Active Protocol: Document 12/03/18 12:30 (Rec: 12/03/18 15:42 [email or web address]) Aquatics Treatment Pool Entry/Exit Pool Entry/Exit Method Stairs Assistance Standby Assistance Verbal Cues Water Walking backward Water Level Chest Level Level of Assistance Standby Assistance march Water Level Chest Level Level of Assistance Standby Assistance forward, side Water Level Chest Level Level of Assistance Standby Assistance Verbal Cues Lower Extremity Exercises knee flex/ext Reps/Duration 10x bilat squats Reps/Duration 15x Comments cues for mm activation sequence circles Details large/slow then small/fast Reps/Duration 10x ea direction Comments mod UE support hip flex/ext Details large/slow then small/fast Reps/Duration 10x Comments mod UE support hip ab/ad Details large/slow then small/fast Reps/Duration 10x Comments mod UE support Lower Extremity Stretches HS, ITB, hip add Equipment Small Noodle Reps/Duration 2x Upper Extremity Exercises sh flex/ext Reps/Duration 10x Comments DLS emphasis shoulder hor ab/ad Reps/Duration 10x Comments DLS emphasis [place] Activities [place] Activities Bicycle Cross [place] Hip Abduction/Adduction Equipment [place] foam float, neck float Duration 20 min Comments minimal to no UE support PT-OP-T Assessment and Plan Start: 09/16/18 11:20 Freq: Status: Active Protocol: Document 12/03/18 12:30 (Rec: 12/03/18 15:42 [email or web address]) Physical Therapy Assessment Goals Strength Impairment weakness core and hips Short Term Goal (STG) Initiate therapeutic exercise program (goal met) STG Duration 2 wks Campground Manager Goal (LTG) Improve strength to at least 4 +/5 throughout trunk and LE's (goal progress) LTG Duration 3 months Pain Impairment Pain level 7/10 Short Term Goal (STG) Decrease pain to no greater than 5/10 (goal progress, reports no pain when in pool for aquatic therapy) STG Duration 6 wks [facility] Goal (LTG) Decrease pain to no greater than 3/10 LTG Duration 3 months Gait Impairment Requires use of walker, unable to walk community distances Short Term Goal (STG) Able to ambulate with straight cane short community distances (goal progress) STG Duration 6 wks [facility] Goal (LTG) Patient able to ambulate without device for community distances. LTG Duration 3 months Activity tolerance Impairment Oswestery disability index score 52% Campground Manager Goal (LTG) Decrease Oswestry score to no greater than 30% (goal progress) LTG Duration 3 months Progress Towards Goals Progress Towards Goals Slow Progress due to Activity Tolerance Slow Progress due to Attendance Issues Progress Comments Jori is making some progress toward goals though his function is still significantly limited due to pain with standing and walking . His forward bent posture is highly contributory to this but he has difficult with correction of his posture. We recently initiate aquatic therapy and he reports good benefit from this treatment; minimal to no pain while in pool, able to tolerate 45 min of gait and ther ex in vertical position, and reporting decrease in pain for several hours afterward. He has requested increased frequency of aquatic therapy, in combination with land-based PT. [ End ] Assessment Summary Assessment Pt requires many cues for proper posture and mm activation. Tolerated deep water exercise with only occasional hand hold on pool side. Physical Therapy Plan Frequency and Duration Frequency of Treatment 3x/Week Duration of Treatment 3 months Plan of Care Start Date 11/12/18 Plan of Care End Date 02/10/19 Therapeutic Interventions Therapeutic Interventions Aquatic Therapy Home Exercise Program Manual Therapy Neuromuscular Re-education Patient/Caregiver Education Self-Care/Home Management Soft Tissue Mobilization Taping Therapeutic Activities Therapeutic Exercises Modalities Cold Pack/Ice Massage Electric Stimulation Hot Packs Ultrasound Next Visit Focus/Plan Next Note Type Treatment Note Next Visit Plan Continue PT primarily aquatic therapy as tolerated. Focus on proper posture and posterior chain strength and flexibility .
--- NOTE | 2018-12-06 13:56 | PT.OTN ---
Current Diagnoses Radiculopathy, lumbar region (12/03/18) Physical Therapy Treatment Note PT-OP-A Visit Information Start: 09/16/18 11:20 Freq: Status: Active Protocol: Document 12/06/18 11:45 CLB (Rec: 12/06/18 13:54 CLB [id number]) Out-Patient Physical Therapy Visit Information Visit Information Visit Type Aquatic Treatment Note Visit Start Time 11:45 Visit Stop Time 12:30 Total Visit Minutes 45 Visit Number 16 Number of LONGWALL SHEARER OPERATOR Visits 2 PT-OP-B Current Condition Start: 09/16/18 11:20 Freq: Status: Active Protocol: Document 09/16/18 11:20 SAK (Rec: 09/16/18 11:40 SAK [id number]) Current Condition History of Current Condition Onset Date 07/20/18 Current Complaints bilateral LBP, right great toe numbness History of Current Condition L4-5 medial facetectomy and foraminotomy; reports it was supposed to be day surgery, but had possible IA at end of surgery (controversy over whether had IA vs reaction to medication) but reports hypertensive when coming out of anesthetic. Has not been doing well, pain worse than prior to surgery. States now physician stating he needs right MICHELLE; has seen surgeon but nothing scheduled yet. States he is uncertain about hip surgery both due to feeling most of his pain from back and concern over his recent response to surgery. Walks better with walker; states he limps without use of walker. Some numbness right great toe. Pain worse with standing and walking, minimal with sitting. Takes 2-3 Hydrocodone per day; 1 at a time. Unable to go for walks or golf as previoiusly Prior Treatments and Tests Using heat at home, trying to walk Future Testing and Treatments Planned Sees pain clinic next week to set up appointment for nerve block. Treatment Goals Patient/Caregiver Goals Decrease pain and resume prior activities. 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 PT-OP-C Subjective Start: 09/16/18 11:20 Freq: Status: Active Protocol: Document 12/06/18 12:00 CLB (Rec: 12/06/18 13:56 CLB [id number]) OP-PT Subjective Patient Comments Patient Comments Pt feeling stiff upon arrival to pool therapy but felt less stiffness half way through treatment. PT-OP-F Manual Assessment Start: 09/16/18 11:20 Freq: Status: Active Protocol: Document 09/16/18 11:20 SAK (Rec: 09/22/18 16:40 SAK [id number]) Manual Assessments Soft Tissue Assessment Soft Tissue Mobility Assessment Increased soft tissue tightness bilateral lumbar paraspinals PT-OP-G Mobility & Gait Start: 09/16/18 11:20 Freq: Status: Active Protocol: Document 09/16/18 11:20 SAK (Rec: 09/22/18 16:40 SAK [id number]) OP Gait Assessment Assistive Devices Assistive Device Front Wheeled Walker Gait Deviations General Gait Pattern Antalgic Decreased Stride Length Decreased Feet Clearance Flexed Trunk Factors Limiting Gait Function Factors Limiting Gait Function Decreased Activity Tolerance Pain PT-OP-H Neuro Start: 09/16/18 11:20 Freq: Status: Active Protocol: Document 09/16/18 11:20 SAK (Rec: 09/22/18 16:40 SAK [id number]) Sensation Evaluation Comments Summary Comments decreased to LT right great toe PT-OP-J Posture/Palpation/Skin Start: 09/16/18 11:20 Freq: Status: Active Protocol: Document 09/16/18 11:20 SAK (Rec: 09/22/18 16:40 SAK [id number]) Posture Evaluation Position Standing Head/C-Spine Posture Forward Head T-Spine Posture Increased Kyphosis L-Spine Posture Decreased Lordosis Weight Distribution Decreased Wt.Bear on (R) Hip Posture (L) Externally Rotated (R) Externally Rotated Skin Assessment Incisional Assessment Incision Appearance/Comments Well-healed with no signs or symptoms of infaction PT-OP-K Range of Motion Start: 09/16/18 11:20 Freq: Status: Active Protocol: Document 09/16/18 11:20 SAK (Rec: 09/22/18 16:40 SAK [id number]) Lumbar Spine Range of Motion Lumbar Spine Active Degrees Flexion 80 Rotation Left 15 Rotation Right 15 Lateral Flexion Left 30 Lateral Flexion Right 30 Comments -5 deg ext with c/o increased pain Hip Goniometric Range of Motion Hip Measured in Degrees Left Flexion w/Knee Flexed 105 Straight Leg Raise 45 Extension 0 Internal Rotation 25 External Rotation 70 Right Flexion w/Knee Flexed 110 Straight Leg Raise 45 Extension 0 Internal Rotation 15 External Rotation 20 PT-OP-M Strength Start: 09/16/18 11:20 Freq: Status: Active Protocol: Document 09/16/18 11:20 [facility] (Rec: 09/22/18 16:40 [facility] [id number]) Trunk Strength Trunk Manual Muscle Testing Core Stabilization Poor core stabilization, difficulty activating TrA and multifidi. Knee Strength Knee Manual Muscle Testing Left Flexion (S2) 5 Normal Extension (L3) 5 Normal Right Flexion (S2) 5 Normal Extension (L3) 5 Normal Ankle/Foot Strength Ankle and Foot Manual Muscle Testing Left Dorsiflexion (L4) 4+ Good+ Plantarflexion (S1) 4+ Good+ Right Dorsiflexion (L4) 4+ Good+ Plantarflexion (S1) 4+ Good+ Toe Strength Toe Manual Muscle Testing Left Great Toe Extension 4+ Good+ Right Great Toe Extension 4- Good- PT-OP-Q Treatments Start: 09/16/18 11:20 Freq: Status: Active Protocol: Document 11/18/18 14:30 [facility] (Rec: 11/19/18 08:14 [facility] [id number]) Cardio Equipment Recumbent Stepper (Sci-Fit) Duration (Minutes) 10 Resistance 2.5 Seat Position 15 Gym Equipment Shuttle Recovery Unilateral Squats Resistance 50 Shuttle Recovery Platform Stable Reps/Time 10x2 Bilateral Squats Resistance 75 Shuttle Recovery Platform Stable Reps/Time 10x2 Shuttle Balance chains yellow Details WBOS EO and EC Reps/Duration 4 min Comments emphasis on core stab Therapeutic Exercises Supine Exercises TrA with march Reps/Minutes 10x SKTC Reps/Minutes 2x HS stretch Reps/Minutes 2x Comments manual Sidelying Exercises clamshell Reps/Minutes 10x Standing Exercises step-ups Reps/Minutes 5x ea Comments emphasis on gluteal activation HC stretch Reps/Minutes 2x shallow squat Reps/Minutes 10x PT-OP-R Modalities Start: 09/16/18 11:20 Freq: Status: Active Protocol: Document 11/18/18 14:30 [facility] (Rec: 11/19/18 08:14 SAK [id number]) Electric Stimulation Electric Stimulation Interferential Current (IFC) Body Location bilateral lumbar paraspinals Duration (Minutes) 15 Target/Sweep Sweep High/Low High Patient Position Sitting Combined With Heat/Cold Hot Pack Ultrasound Therapy Treatment Back Treatment Duration (minutes) 8 Patient Position Sidelying Coupling Medium Ultrasound Gel Frequency Setting (mHz) 1 Mode Setting Continuous Duty Cycle 100% Intensity Setting (w/cm2) 1.4 Comments bilateral lumbar paraspinals PT-OP-S Aquatic Treatment Start: 09/16/18 11:20 Freq: Status: Active Protocol: Document 12/06/18 11:45 CLB (Rec: 12/06/18 13:54 CLB [email or web address]) Aquatics Treatment Pool Entry/Exit Pool Entry/Exit Method Stairs Assistance Standby Assistance Verbal Cues Water Walking backward Water Level Chest Level Level of Assistance Standby Assistance december Water Level Chest Level Level of Assistance Standby Assistance forward, side Water Level Chest Level Level of Assistance Standby Assistance Verbal Cues Lower Extremity Exercises squats Reps/Duration 15x Comments cues for mm activation sequence circles Details large/slow then small/fast Reps/Duration 10x ea direction Comments mod UE support hip flex/ext Details large/slow then small/fast Reps/Duration 10x Comments mod UE support hip ab/ad Details large/slow then small/fast Reps/Duration 10x Comments mod UE support Lower Extremity Stretches piriformis Details at wall Body Position squating Water Level Waist Level Reps/Duration x2 bilaterally Comments back against wall HS, ITB, hip add Equipment Small Noodle Reps/Duration 2x [place] Activities [place] Activities Bicycle [place] Hip Abduction/Adduction Other Activities deep water hang 1'x2 Equipment [place] foam float Duration 20 min Comments minimal to no UE support PT-OP-T Assessment and Plan Start: 09/16/18 11:20 Freq: Status: Active Protocol: Document 12/06/18 11:45 CLB (Rec: 12/06/18 13:54 CLB [email or web address]) Physical Therapy Assessment Goals Strength Impairment weakness core and hips Short Term Goal (STG) Initiate therapeutic exercise program (goal met) STG Duration 2 wks Alf Goal (LTG) Improve strength to at least 4 +/5 throughout trunk and LE's (goal progress) LTG Duration 3 months Pain Impairment Pain level 7/10 Short Term Goal (STG) Decrease pain to no greater than 5/10 (goal progress, reports no pain when in pool for aquatic therapy) STG Duration 6 wks Alf Goal (LTG) Decrease pain to no greater than 3/10 LTG Duration 3 months Gait Impairment Requires use of walker, unable to walk community distances Short Term Goal (STG) Able to ambulate with straight cane short community distances (goal progress) STG Duration 6 wks Bullet Slugs Inspector Goal (LTG) Patient able to ambulate without device for community distances. LTG Duration 3 months Activity tolerance Impairment Oswestery disability index score 52% [employer] Sl[employer] Inspector Goal (LTG) Decrease Oswestry score to no greater than 30% (goal progress) LTG Duration 3 months Assessment Summary Assessment Pt continues to require cues for core activation and posture. Pt continues to tolerate aquatic therapy well. Physical Therapy Plan Frequency and Duration Frequency of Treatment 3x/Week Duration of Treatment 3 months Plan of Care Start Date 11/12/18 Plan of Care End Date 02/10/19 Next Visit Focus/Plan Next Visit Plan Continue PT primarily aquatic therapy as tolerated. Focus on proper posture and posterior chain strength and flexibility .
--- NOTE | 2018-12-13 16:49 | PT.OTN ---
Current Diagnoses Radiculopathy, lumbar region (12/13/18) Physical Therapy Treatment Note PT-OP-A Visit Information Start: 09/16/18 11:20 Freq: Status: Active Protocol: Document 12/13/18 11:00 CLB (Rec: 12/13/18 16:49 CLB [id number]) Out-Patient Physical Therapy Visit Information Visit Information Visit Type Treatment Note Visit Start Time 11:00 Visit Stop Time 11:45 Total Visit Minutes 46 Visit Number Number of GOLF CADDY Visits 3 PT-OP-B Current Condition Start: 09/16/18 11:20 Freq: Status: Active Protocol: Document 09/16/18 11:20 SAK (Rec: 09/16/18 11:40 SAK [id number]) Current Condition History of Current Condition Onset Date 07/20/18 Current Complaints bilateral LBP, right great toe numbness History of Current Condition L4-5 medial facetectomy and foraminotomy; reports it was supposed to be day surgery, but had possible RI at end of surgery (controversy over whether had RI vs reaction to medication) but reports hypertensive when coming out of anesthetic. Has not been doing well, pain worse than prior to surgery. States now physician stating he needs right MICHELLE; has seen surgeon but nothing scheduled yet. States he is uncertain about hip surgery both due to feeling most of his pain from back and concern over his recent response to surgery. Walks better with walker; states he limps without use of walker. Some numbness right great toe. Pain worse with standing and walking, minimal with sitting. Takes 2-3 Hydrocodone per day; 1 at a time. Unable to go for walks or golf as previoiusly Prior Treatments and Tests Using heat at home, trying to walk Future Testing and Treatments Planned Sees pain clinic next week to set up appointment for nerve block. Treatment Goals Patient/Caregiver Goals Decrease pain and resume prior activities. 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 PT-OP-C Subjective Start: 09/16/18 11:20 Freq: Status: Active Protocol: Document 12/13/18 11:00 CLB (Rec: 12/13/18 16:49 CLB [id number]) OP-PT Subjective Patient Comments Patient Comments Pt stated his doctor appt was canceled and rescheduled for December 24. PT-OP-F Manual Assessment Start: 09/16/18 11:20 Freq: Status: Active Protocol: Document 09/16/18 11:20 SAK (Rec: 09/22/18 16:40 SAK [id number]) Manual Assessments Soft Tissue Assessment Soft Tissue Mobility Assessment Increased soft tissue tightness bilateral lumbar paraspinals PT-OP-G Mobility & Gait Start: 09/16/18 11:20 Freq: Status: Active Protocol: Document 09/16/18 11:20 SAK (Rec: 09/22/18 16:40 SAK [id number]) OP Gait Assessment Assistive Devices Assistive Device Front Wheeled Walker Gait Deviations General Gait Pattern Antalgic Decreased Stride Length Decreased Feet Clearance Flexed Trunk Factors Limiting Gait Function Factors Limiting Gait Function Decreased Activity Tolerance Pain PT-OP-H Neuro Start: 09/16/18 11:20 Freq: Status: Active Protocol: Document 09/16/18 11:20 SAK (Rec: 09/22/18 16:40 SAK [id number]) Sensation Evaluation Comments Summary Comments decreased to LT right great toe PT-OP-J Posture/Palpation/Skin Start: 09/16/18 11:20 Freq: Status: Active Protocol: Document 09/16/18 11:20 SAK (Rec: 09/22/18 16:40 SAK [id number]) Posture Evaluation Position Standing Head/C-Spine Posture Forward Head T-Spine Posture Increased Kyphosis L-Spine Posture Decreased Lordosis Weight Distribution Decreased Wt.Bear on (R) Hip Posture (L) Externally Rotated (R) Externally Rotated Skin Assessment Incisional Assessment Incision Appearance/Comments Well-healed with no signs or symptoms of infaction PT-OP-K Range of Motion Start: 09/16/18 11:20 Freq: Status: Active Protocol: Document 09/16/18 11:20 SAK (Rec: 09/22/18 16:40 SAK [id number]) Lumbar Spine Range of Motion Lumbar Spine Active Degrees Flexion 80 Rotation Left 15 Rotation Right 15 Lateral Flexion Left 30 Lateral Flexion Right 30 Comments -5 deg ext with c/o increased pain Hip Goniometric Range of Motion Hip Measured in Degrees Left Flexion w/Knee Flexed 105 Straight Leg Raise 45 Extension 0 Internal Rotation 25 External Rotation 70 Right Flexion w/Knee Flexed 110 Straight Leg Raise 45 Extension 0 Internal Rotation 15 External Rotation 20 PT-OP-M Strength Start: 09/16/18 11:20 Freq: Status: Active Protocol: Document 09/16/18 11:20 [facility] (Rec: 09/22/18 16:40 [facility] [id number]) Trunk Strength Trunk Manual Muscle Testing Core Stabilization Poor core stabilization, difficulty activating TrA and multifidi. Knee Strength Knee Manual Muscle Testing Left Flexion (S2) 5 Normal Extension (L3) 5 Normal Right Flexion (S2) 5 Normal Extension (L3) 5 Normal Ankle/Foot Strength Ankle and Foot Manual Muscle Testing Left Dorsiflexion (L4) 4+ Good+ Plantarflexion (S1) 4+ Good+ Right Dorsiflexion (L4) 4+ Good+ Plantarflexion (S1) 4+ Good+ Toe Strength Toe Manual Muscle Testing Left Great Toe Extension 4+ Good+ Right Great Toe Extension 4- Good- PT-OP-Q Treatments Start: 09/16/18 11:20 Freq: Status: Active Protocol: Document 11/18/18 14:30 [facility] (Rec: 11/19/18 08:14 [facility] [id number]) Cardio Equipment Recumbent Stepper (Sci-Fit) Duration (Minutes) 10 Resistance 2.5 Seat Position 15 Gym Equipment Shuttle Recovery Unilateral Squats Resistance 50 Shuttle Recovery Platform Stable Reps/Time 10x2 Bilateral Squats Resistance 75 Shuttle Recovery Platform Stable Reps/Time 10x2 Shuttle Balance chains yellow Details WBOS EO and EC Reps/Duration 4 min Comments emphasis on core stab Therapeutic Exercises Supine Exercises TrA with march Reps/Minutes 10x SKTC Reps/Minutes 2x HS stretch Reps/Minutes 2x Comments manual Sidelying Exercises clamshell Reps/Minutes 10x Standing Exercises step-ups Reps/Minutes 5x ea Comments emphasis on gluteal activation HC stretch Reps/Minutes 2x shallow squat Reps/Minutes 10x PT-OP-R Modalities Start: 09/16/18 11:20 Freq: Status: Active Protocol: Document 11/18/18 14:30 RUSTY (Rec: 11/19/18 08:14 SAK [id number]) Electric Stimulation Electric Stimulation Interferential Current (IFC) Body Location bilateral lumbar paraspinals Duration (Minutes) 15 Target/Sweep Sweep High/Low High Patient Position Sitting Combined With Heat/Cold Hot Pack Ultrasound Therapy Treatment Back Treatment Duration (minutes) 8 Patient Position Sidelying Coupling Medium Ultrasound Gel Frequency Setting (mHz) 1 Mode Setting Continuous Duty Cycle 100% Intensity Setting (w/cm2) 1.4 Comments bilateral lumbar paraspinals PT-OP-S Aquatic Treatment Start: 09/16/18 11:20 Freq: Status: Active Protocol: Document 12/13/18 11:00 CLB (Rec: 12/13/18 16:49 CLB [id number]) Aquatics Treatment Pool Entry/Exit Pool Entry/Exit Method Stairs Assistance Standby Assistance Verbal Cues Water Walking backward Water Level Chest Level Walking Equipment Ankle Floats Level of Assistance Standby Assistance march Water Level Chest Level Walking Equipment Ankle Floats Level of Assistance Standby Assistance forward, side Water Level Chest Level Walking Equipment Ankle Floats Level of Assistance Standby Assistance Verbal Cues Lower Extremity Exercises knee flex/ext Reps/Duration 10x bilat squats Reps/Duration 15x Comments cues for mm activation sequence circles Details large/slow then small/fast Reps/Duration 10x ea direction Comments mod UE support hip flex/ext Details large/slow then small/fast Equipment Ankle Floats Reps/Duration 10x Comments mod UE support hip ab/ad Details large/slow then small/fast Equipment Ankle Floats Reps/Duration 10x Comments mod UE support heel toe raise Reps/Duration 10x Comments mod UE support Lower Extremity Stretches HS, ITB, hip add Equipment Small Noodle Reps/Duration 2x Upper Extremity Exercises sh flex/ext Reps/Duration 10x Comments DLS emphasis shoulder hor ab/ad Reps/Duration 10x Comments DLS emphasis [place] Activities [place] Activities Bicycle Cross Country Hip Abduction/Adduction Other Activities deep water hang 1'x2 Equipment [place] foam float Duration 20 min Comments minimal to no UE support PT-OP-T Assessment and Plan Start: 09/16/18 11:20 Freq: Status: Active Protocol: Document 12/13/18 11:00 CLB (Rec: 12/13/18 16:49 CLB [id number]) Physical Therapy Assessment Goals Strength Impairment weakness core and hips Short Term Goal (STG) Initiate therapeutic exercise program (goal met) STG Duration 2 wks [employer] Goal (LTG) Improve strength to at least 4 +/5 throughout trunk and LE's (goal progress) LTG Duration 3 months Pain Impairment Pain level 7/10 Short Term Goal (STG) Decrease pain to no greater than 5/10 (goal progress, reports no pain when in pool for aquatic therapy) STG Duration 6 wks Custodial Goal (LTG) Decrease pain to no greater than 3/10 LTG Duration 3 months Gait Impairment Requires use of walker, unable to walk community distances Short Term Goal (STG) Able to ambulate with straight cane short community distances (goal progress) STG Duration 6 wks Custodial Goal (LTG) Patient able to ambulate without device for community distances. LTG Duration 3 months Activity tolerance Impairment Oswestery disability index score 52% Custodial Goal (LTG) Decrease Oswestry score to no greater than 30% (goal progress) LTG Duration 3 months Assessment Summary Assessment Pt with pain in sacral area at end of tx, pain resolved with deep water hanging. Physical Therapy Plan Frequency and Duration Frequency of Treatment 3x/Week Duration of Treatment 3 months Plan of Care Start Date 11/12/18 Plan of Care End Date 02/10/19 Next Visit Focus/Plan Next Note Type Treatment Note Next Visit Plan Continue PT primarily aquatic therapy as tolerated. Focus on proper posture and posterior chain strength and flexibility .
--- NOTE | 2018-12-17 15:24 | PT.OTN ---
Current Diagnoses Radiculopathy, lumbar region (12/17/18) Physical Therapy Treatment Note PT-OP-A Visit Information Start: 09/16/18 11:20 Freq: Status: Active Protocol: Document 12/17/18 11:00 LJ (Rec: 12/17/18 15:24 LJ [id number]) Out-Patient Physical Therapy Visit Information Visit Information Visit Type Aquatic Treatment Note Visit Start Time 11:00 Visit Stop Time 11:45 Total Visit Minutes 47 Visit Number Number of ICT CUSTOMER SUPPORT OFFICER Visits 4 PT-OP-B Current Condition Start: 09/16/18 11:20 Freq: Status: Active Protocol: Document 09/16/18 11:20 SAK (Rec: 09/16/18 11:40 SAK [id number]) Current Condition History of Current Condition Onset Date 07/20/18 Current Complaints bilateral LBP, right great toe numbness History of Current Condition L4-5 medial facetectomy and foraminotomy; reports it was supposed to be day surgery, but had possible AK at end of surgery (controversy over whether had AK vs reaction to medication) but reports hypertensive when coming out of anesthetic. Has not been doing well, pain worse than prior to surgery. States now physician stating he needs right MICHELLE; has seen surgeon but nothing scheduled yet. States he is uncertain about hip surgery both due to feeling most of his pain from back and concern over his recent response to surgery. Walks better with walker; states he limps without use of walker. Some numbness right great toe. Pain worse with standing and walking, minimal with sitting. Takes 2-3 Hydrocodone per day; 1 at a time. Unable to go for walks or golf as previoiusly Prior Treatments and Tests Using heat at home, trying to walk Future Testing and Treatments Planned Sees pain clinic next week to set up appointment for nerve block. Treatment Goals Patient/Caregiver Goals Decrease pain and resume prior activities. 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 PT-OP-C Subjective Start: 09/16/18 11:20 Freq: Status: Active Protocol: Document 12/17/18 11:00 LJ (Rec: 12/17/18 15:24 LJ [id number]) OP-PT Subjective Patient Comments Patient Comments Pt states he is having increased pain in RLE. PT-OP-F Manual Assessment Start: 09/16/18 11:20 Freq: Status: Active Protocol: Document 09/16/18 11:20 SAK (Rec: 09/22/18 16:40 SAK [id number]) Manual Assessments Soft Tissue Assessment Soft Tissue Mobility Assessment Increased soft tissue tightness bilateral lumbar paraspinals PT-OP-G Mobility & Gait Start: 09/16/18 11:20 Freq: Status: Active Protocol: Document 09/16/18 11:20 SAK (Rec: 09/22/18 16:40 SAK [id number]) OP Gait Assessment Assistive Devices Assistive Device Front Wheeled Walker Gait Deviations General Gait Pattern Antalgic Decreased Stride Length Decreased Feet Clearance Flexed Trunk Factors Limiting Gait Function Factors Limiting Gait Function Decreased Activity Tolerance Pain PT-OP-H Neuro Start: 09/16/18 11:20 Freq: Status: Active Protocol: Document 09/16/18 11:20 SAK (Rec: 09/22/18 16:40 SAK [id number]) Sensation Evaluation Comments Summary Comments decreased to LT right great toe PT-OP-J Posture/Palpation/Skin Start: 09/16/18 11:20 Freq: Status: Active Protocol: Document 09/16/18 11:20 SAK (Rec: 09/22/18 16:40 SAK [id number]) Posture Evaluation Position Standing Head/C-Spine Posture Forward Head T-Spine Posture Increased Kyphosis L-Spine Posture Decreased Lordosis Weight Distribution Decreased Wt.Bear on (R) Hip Posture (L) Externally Rotated (R) Externally Rotated Skin Assessment Incisional Assessment Incision Appearance/Comments Well-healed with no signs or symptoms of infaction PT-OP-K Range of Motion Start: 09/16/18 11:20 Freq: Status: Active Protocol: Document 09/16/18 11:20 SAK (Rec: 09/22/18 16:40 SAK [id number]) Lumbar Spine Range of Motion Lumbar Spine Active Degrees Flexion 80 Rotation Left 15 Rotation Right 15 Lateral Flexion Left 30 Lateral Flexion Right 30 Comments -5 deg ext with c/o increased pain Hip Goniometric Range of Motion Hip Measured in Degrees Left Flexion w/Knee Flexed 105 Straight Leg Raise 45 Extension 0 Internal Rotation 25 External Rotation 70 Right Flexion w/Knee Flexed 110 Straight Leg Raise 45 Extension 0 Internal Rotation 15 External Rotation 20 PT-OP-M Strength Start: 09/16/18 11:20 Freq: Status: Active Protocol: Document 09/16/18 11:20 [facility] (Rec: 09/22/18 16:40 [facility] [id number]) Trunk Strength Trunk Manual Muscle Testing Core Stabilization Poor core stabilization, difficulty activating TrA and multifidi. Knee Strength Knee Manual Muscle Testing Left Flexion (S2) 5 Normal Extension (L3) 5 Normal Right Flexion (S2) 5 Normal Extension (L3) 5 Normal Ankle/Foot Strength Ankle and Foot Manual Muscle Testing Left Dorsiflexion (L4) 4+ Good+ Plantarflexion (S1) 4+ Good+ Right Dorsiflexion (L4) 4+ Good+ Plantarflexion (S1) 4+ Good+ Toe Strength Toe Manual Muscle Testing Left Great Toe Extension 4+ Good+ Right Great Toe Extension 4- Good- PT-OP-Q Treatments Start: 09/16/18 11:20 Freq: Status: Active Protocol: Document 11/18/18 14:30 [facility] (Rec: 11/19/18 08:14 [facility] [id number]) Cardio Equipment Recumbent Stepper (Sci-Fit) Duration (Minutes) 10 Resistance 2.5 Seat Position 15 Gym Equipment Shuttle Recovery Unilateral Squats Resistance 50 Shuttle Recovery Platform Stable Reps/Time 10x2 Bilateral Squats Resistance 75 Shuttle Recovery Platform Stable Reps/Time 10x2 Shuttle Balance chains yellow Details WBOS EO and EC Reps/Duration 4 min Comments emphasis on core stab Therapeutic Exercises Supine Exercises TrA with march Reps/Minutes 10x SKTC Reps/Minutes 2x HS stretch Reps/Minutes 2x Comments manual Sidelying Exercises clamshell Reps/Minutes 10x Standing Exercises step-ups Reps/Minutes 5x ea Comments emphasis on gluteal activation HC stretch Reps/Minutes 2x shallow squat Reps/Minutes 10x PT-OP-R Modalities Start: 09/16/18 11:20 Freq: Status: Active Protocol: Document 11/18/18 14:30 RUSTY (Rec: 11/19/18 08:14 [facility] [id number]) Electric Stimulation Electric Stimulation Interferential Current (IFC) Body Location bilateral lumbar paraspinals Duration (Minutes) 15 Target/Sweep Sweep High/Low High Patient Position Sitting Combined With Heat/Cold Hot Pack Ultrasound Therapy Treatment Back Treatment Duration (minutes) 8 Patient Position Sidelying Coupling Medium Ultrasound Gel Frequency Setting (mHz) 1 Mode Setting Continuous Duty Cycle 100% Intensity Setting (w/cm2) 1.4 Comments bilateral lumbar paraspinals PT-OP-S Aquatic Treatment Start: 09/16/18 11:20 Freq: Status: Active Protocol: Document 12/17/18 11:00 (Rec: 12/17/18 15:24 [id number]) Aquatics Treatment Pool Entry/Exit Pool Entry/Exit Method Stairs Assistance Standby Assistance Water Walking backward Water Level Chest Level Walking Equipment Ankle Floats Level of Assistance Standby Assistance march Water Level Chest Level Walking Equipment Ankle Floats Level of Assistance Standby Assistance forward, side Water Level Chest Level Walking Equipment Ankle Floats Level of Assistance Standby Assistance Verbal Cues Lower Extremity Exercises knee flex/ext Reps/Duration 10x bilat circles Details large/slow then small/fast Reps/Duration 10x ea direction Comments mod UE support hip flex/ext Details gentle Equipment Ankle Floats Reps/Duration 10x Comments mod UE support hip ab/ad Details gentle Equipment Ankle Floats Reps/Duration 10x Comments mod UE support heel toe raise Reps/Duration 10x Comments mod UE support Lower Extremity Stretches piriformis Details at wall Body Position squating Water Level Waist Level Reps/Duration x2 bilaterally Comments back against wall HS, ITB, hip add Equipment Small Noodle Reps/Duration 2x [place] Activities [place] Activities Bicycle Cross Country Hip Abduction/Adduction Other Activities deep water hang 8 min w/#2.5 Equipment [place] foam float Duration 20 min Comments minimal to no UE support PT-OP-T Assessment and Plan Start: 09/16/18 11:20 Freq: Status: Active Protocol: Document 12/17/18 11:00 (Rec: 12/17/18 15:24 [id number]) Physical Therapy Assessment Goals Strength Impairment weakness core and hips Short Term Goal (STG) Initiate therapeutic exercise program (goal met) STG Duration 2 wks Schedule Planning Manager Goal (LTG) Improve strength to at least 4 +/5 throughout trunk and LE's (goal progress) LTG Duration 3 months Pain Impairment Pain level 7/10 Short Term Goal (STG) Decrease pain to no greater than 5/10 (goal progress, reports no pain when in pool for aquatic therapy) STG Duration 6 wks Intermediate Goal (LTG) Decrease pain to no greater than 3/10 LTG Duration 3 months Gait Impairment Requires use of walker, unable to walk community distances Short Term Goal (STG) Able to ambulate with straight cane short community distances (goal progress) STG Duration 6 wks Intermediate Goal (LTG) Patient able to ambulate without device for community distances. LTG Duration 3 months Activity tolerance Impairment Oswestery disability index score 52% Intermediate Goal (LTG) Decrease Oswestry score to no greater than 30% (goal progress) LTG Duration 3 months Assessment Summary Assessment Pt with pain in some deep water activities. Cueing to decrease ROM and effort. Pt took 2 hanging rest breaks during deep water exercise. Physical Therapy Plan Frequency and Duration Frequency of Treatment 3x/Week Duration of Treatment 3 months Plan of Care Start Date 11/12/18 Plan of Care End Date 02/10/19 Therapeutic Interventions Therapeutic Interventions Aquatic Therapy Home Exercise Program Manual Therapy Neuromuscular Re-education Patient/Caregiver Education Self-Care/Home Management Soft Tissue Mobilization Taping Therapeutic Activities Therapeutic Exercises Modalities Cold Pack/Ice Massage Electric Stimulation Hot Packs Ultrasound Next Visit Focus/Plan Next Note Type Treatment Note Next Visit Plan Discuss with pt transitioning to land based therapy. Continue aquatic therapy independently with HEP
--- NOTE | 2018-12-22 15:41 | PT.OTN ---
Current Diagnoses Radiculopathy, lumbar region (12/22/18) Physical Therapy Treatment Note PT-OP-A Visit Information Start: 09/16/18 11:20 Freq: Status: Active Protocol: Document 12/22/18 09:01 SAK (Rec: 12/22/18 09:06 SAK [id number]) Out-Patient Physical Therapy Visit Information Visit Information Visit Type Treatment Note Visit Start Time 09:00 Visit Stop Time 10:00 Total Visit Minutes 60 Visit Number Number of PHOTOENGRAVING PROOFER Visits 5 PT-OP-B Current Condition Start: 09/16/18 11:20 Freq: Status: Active Protocol: Document 09/16/18 11:20 SAK (Rec: 09/16/18 11:40 SAK [id number]) Current Condition History of Current Condition Onset Date 07/20/18 Current Complaints bilateral LBP, right great toe numbness History of Current Condition L4-5 medial facetectomy and foraminotomy; reports it was supposed to be day surgery, but had possible ME at end of surgery (controversy over whether had ME vs reaction to medication) but reports hypertensive when coming out of anesthetic. Has not been doing well, pain worse than prior to surgery. States now physician stating he needs right MICHELLE; has seen surgeon but nothing scheduled yet. States he is uncertain about hip surgery both due to feeling most of his pain from back and concern over his recent response to surgery. Walks better with walker; states he limps without use of walker. Some numbness right great toe. Pain worse with standing and walking, minimal with sitting. Takes 2-3 Hydrocodone per day; 1 at a time. Unable to go for walks or golf as previoiusly Prior Treatments and Tests Using heat at home, trying to walk Future Testing and Treatments Planned Sees pain clinic next week to set up appointment for nerve block. Treatment Goals Patient/Caregiver Goals Decrease pain and resume prior activities. 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 PT-OP-C Subjective Start: 09/16/18 11:20 Freq: Status: Active Protocol: Document 12/22/18 09:01 SAK (Rec: 12/22/18 09:06 SAK [id number]) OP-PT Subjective Patient Comments Patient Comments Sees his surgeon 12/24/18. Has had a few episodes of stabbing pain into anerior right thigh . PT-OP-F Manual Assessment Start: 09/16/18 11:20 Freq: Status: Active Protocol: Document 09/16/18 11:20 SAK (Rec: 09/22/18 16:40 SAK [id number]) Manual Assessments Soft Tissue Assessment Soft Tissue Mobility Assessment Increased soft tissue tightness bilateral lumbar paraspinals PT-OP-G Mobility & Gait Start: 09/16/18 11:20 Freq: Status: Active Protocol: Document 09/16/18 11:20 SAK (Rec: 09/22/18 16:40 SAK [id number]) OP Gait Assessment Assistive Devices Assistive Device Front Wheeled Walker Gait Deviations General Gait Pattern Antalgic Decreased Stride Length Decreased Feet Clearance Flexed Trunk Factors Limiting Gait Function Factors Limiting Gait Function Decreased Activity Tolerance Pain PT-OP-H Neuro Start: 09/16/18 11:20 Freq: Status: Active Protocol: Document 09/16/18 11:20 SAK (Rec: 09/22/18 16:40 [facility] [id number]) Sensation Evaluation Comments Summary Comments decreased to LT right great toe PT-OP-J Posture/Palpation/Skin Start: 09/16/18 11:20 Freq: Status: Active Protocol: Document 09/16/18 11:20 SAK (Rec: 09/22/18 16:40 [facility] [id number]) Posture Evaluation Position Standing Head/C-Spine Posture Forward Head T-Spine Posture Increased Kyphosis L-Spine Posture Decreased Lordosis Weight Distribution Decreased Wt.Bear on (R) Hip Posture (L) Externally Rotated (R) Externally Rotated Skin Assessment Incisional Assessment Incision Appearance/Comments Well-healed with no signs or symptoms of infaction PT-OP-K Range of Motion Start: 09/16/18 11:20 Freq: Status: Active Protocol: Document 09/16/18 11:20 SAK (Rec: 09/22/18 16:40 SAK [id number]) Lumbar Spine Range of Motion Lumbar Spine Active Degrees Flexion 80 Rotation Left 15 Rotation Right 15 Lateral Flexion Left 30 Lateral Flexion Right 30 Comments -5 deg ext with c/o increased pain Hip Goniometric Range of Motion Hip Measured in Degrees Left Flexion w/Knee Flexed 105 Straight Leg Raise 45 Extension 0 Internal Rotation 25 External Rotation 70 Right Flexion w/Knee Flexed 110 Straight Leg Raise 45 Extension 0 Internal Rotation 15 External Rotation 20 PT-OP-M Strength Start: 09/16/18 11:20 Freq: Status: Active Protocol: Document 09/16/18 11:20 [facility] (Rec: 09/22/18 16:40 [facility] [id number]) Trunk Strength Trunk Manual Muscle Testing Core Stabilization Poor core stabilization, difficulty activating TrA and multifidi. Knee Strength Knee Manual Muscle Testing Left Flexion (S2) 5 Normal Extension (L3) 5 Normal Right Flexion (S2) 5 Normal Extension (L3) 5 Normal Ankle/Foot Strength Ankle and Foot Manual Muscle Testing Left Dorsiflexion (L4) 4+ Good+ Plantarflexion (S1) 4+ Good+ Right Dorsiflexion (L4) 4+ Good+ Plantarflexion (S1) 4+ Good+ Toe Strength Toe Manual Muscle Testing Left Great Toe Extension 4+ Good+ Right Great Toe Extension 4- Good- PT-OP-Q Treatments Start: 09/16/18 11:20 Freq: Status: Active Protocol: Document 12/22/18 09:01 [facility] (Rec: 12/22/18 09:35 [facility] [id number]) Cardio Equipment Recumbent Stepper (Sci-Fit) Duration (Minutes) 10 Resistance 2.5 Seat Position 15 Gym Equipment Shuttle Recovery Unilateral Squats Resistance 50 Shuttle Recovery Platform Stable Reps/Time 10x2 Bilateral Squats Resistance 87 Shuttle Recovery Platform Stable Reps/Time 10x2 Shuttle Balance chains yellow Details WBOS EO and EC, shallow squats Reps/Duration 4 min Comments emphasis on core stab Sport Cord fwd,side Cord/Resistance green Reps/Duration 5x forward, 3x each side Comments emphasis on core stab Therapeutic Exercises Supine Exercises SKTC Reps/Minutes 2x Comments opp LE straight for hip flexor stretch HS stretch Reps/Minutes 2x Comments manual Standing Exercises HC stretch Reps/Minutes 2x Comments with hip flexor stretch Gait Training Gait Activity no device Treatment Focus postural alignment and core stab PT-OP-R Modalities Start: 09/16/18 11:20 Freq: Status: Active Protocol: Document 11/18/18 14:30 SAK (Rec: 11/19/18 08:14 SAK [id number]) Electric Stimulation Electric Stimulation Interferential Current (IFC) Body Location bilateral lumbar paraspinals Duration (Minutes) 15 Target/Sweep Sweep High/Low High Patient Position Sitting Combined With Heat/Cold Hot Pack Ultrasound Therapy Treatment Back Treatment Duration (minutes) 8 Patient Position Sidelying Coupling Medium Ultrasound Gel Frequency Setting (mHz) 1 Mode Setting Continuous Duty Cycle 100% Intensity Setting (w/cm2) 1.4 Comments bilateral lumbar paraspinals PT-OP-S Aquatic Treatment Start: 09/16/18 11:20 Freq: Status: Active Protocol: Document 12/17/18 11:00 LJ (Rec: 12/17/18 15:24 LJ [id number]) Aquatics Treatment Pool Entry/Exit Pool Entry/Exit Method Stairs Assistance Standby Assistance Water Walking backward Water Level Chest Level Walking Equipment Ankle Floats Level of Assistance Standby Assistance march Water Level Chest Level Walking Equipment Ankle Floats Level of Assistance Standby Assistance forward, side Water Level Chest Level Walking Equipment Ankle Floats Level of Assistance Standby Assistance Verbal Cues Lower Extremity Exercises knee flex/ext Reps/Duration 10x bilat circles Details large/slow then small/fast Reps/Duration 10x ea direction Comments mod UE support hip flex/ext Details gentle Equipment Ankle Floats Reps/Duration 10x Comments mod UE support hip ab/ad Details gentle Equipment Ankle Floats Reps/Duration 10x Comments mod UE support heel toe raise Reps/Duration 10x Comments mod UE support Lower Extremity Stretches piriformis Details at wall Body Position squating Water Level Waist Level Reps/Duration x2 bilaterally Comments back against wall HS, ITB, hip add Equipment Small Noodle Reps/Duration 2x [place] Activities [place] Activities Bicycle Cross [place] Hip Abduction/Adduction Other Activities deep water hang 8 min w/#2.5 Equipment [place] foam float Duration 20 min Comments minimal to no UE support PT-OP-T Assessment and Plan Start: 09/16/18 11:20 Freq: Status: Active Protocol: Document 12/22/18 09:01 SAK (Rec: 12/22/18 09:06 SAK [id number]) Physical Therapy Assessment Goals Strength Impairment weakness core and hips Short Term Goal (STG) Initiate therapeutic exercise program (goal met) STG Duration 2 wks Software Design Engineer Goal (LTG) Improve strength to at least 4 +/5 throughout trunk and LE's (goal progress) LTG Duration 3 months Pain Impairment Pain level 7/10 Short Term Goal (STG) Decrease pain to no greater than 5/10 (goal progress, reports no pain when in pool for aquatic therapy) STG Duration 6 wks Residential Goal (LTG) Decrease pain to no greater than 3/10 LTG Duration 3 months Gait Impairment Requires use of walker, unable to walk community distances Short Term Goal (STG) Able to ambulate with straight cane short community distances (goal progress) STG Duration 6 wks Software Design Engineer Goal (LTG) Patient able to ambulate without device for community distances. LTG Duration 3 months Activity tolerance Impairment Oswestery disability index score 52% Software Design Engineer Goal (LTG) Decrease Oswestry score to no greater than 30% (goal progress) LTG Duration 3 months Physical Therapy Plan Frequency and Duration Frequency of Treatment 3x/Week Duration of Treatment 3 months Plan of Care Start Date 11/12/18 Plan of Care End Date 02/10/19 Therapeutic Interventions Therapeutic Interventions Aquatic Therapy Home Exercise Program Manual Therapy Neuromuscular Re-education Patient/Caregiver Education Self-Care/Home Management Soft Tissue Mobilization Taping Therapeutic Activities Therapeutic Exercises Modalities Cold Pack/Ice Massage Electric Stimulation Hot Packs Ultrasound Next Visit Focus/Plan Next Note Type Treatment Note Next Visit Plan Continue PT POC pending any new recommendations from surgeon
--- NOTE | 2018-12-27 15:20 | PT.OTN ---
Current Diagnoses Radiculopathy, lumbar region (12/27/18) Physical Therapy Treatment Note PT-OP-A Visit Information Start: 09/16/18 11:20 Freq: Status: Active Protocol: Document 12/27/18 11:00 CLB (Rec: 12/27/18 15:20 CLB [id number]) Out-Patient Physical Therapy Visit Information Visit Information Visit Type Treatment Note Visit Start Time 11:00 Visit Stop Time 11:45 Total Visit Minutes 45 Visit Number 21 Number of DIRECTOR ORGANIZATIONAL Visits 1 PT-OP-B Current Condition Start: 09/16/18 11:20 Freq: Status: Active Protocol: Document 09/16/18 11:20 SAK (Rec: 09/16/18 11:40 SAK [id number]) Current Condition History of Current Condition Onset Date 07/20/18 Current Complaints bilateral LBP, right great toe numbness History of Current Condition L4-5 medial facetectomy and foraminotomy; reports it was supposed to be day surgery, but had possible ID at end of surgery (controversy over whether had ID vs reaction to medication) but reports hypertensive when coming out of anesthetic. Has not been doing well, pain worse than prior to surgery. States now physician stating he needs right MICHELLE; has seen surgeon but nothing scheduled yet. States he is uncertain about hip surgery both due to feeling most of his pain from back and concern over his recent response to surgery. Walks better with walker; states he limps without use of walker. Some numbness right great toe. Pain worse with standing and walking, minimal with sitting. Takes 2-3 Hydrocodone per day; 1 at a time. Unable to go for walks or golf as previoiusly Prior Treatments and Tests Using heat at home, trying to walk Future Testing and Treatments Planned Sees pain clinic next week to set up appointment for nerve block. Treatment Goals Patient/Caregiver Goals Decrease pain and resume prior activities. 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 PT-OP-C Subjective Start: 09/16/18 11:20 Freq: Status: Active Protocol: Document 12/27/18 11:00 CLB (Rec: 12/27/18 15:20 CLB [id number]) OP-PT Subjective Patient Comments Patient Comments Pt states he is having stabbing pain in his right thigh when bending over with straight leg. PT-OP-F Manual Assessment Start: 09/16/18 11:20 Freq: Status: Active Protocol: Document 09/16/18 11:20 SAK (Rec: 09/22/18 16:40 SAK [id number]) Manual Assessments Soft Tissue Assessment Soft Tissue Mobility Assessment Increased soft tissue tightness bilateral lumbar paraspinals PT-OP-G Mobility & Gait Start: 09/16/18 11:20 Freq: Status: Active Protocol: Document 12/22/18 09:01 SAK (Rec: 12/22/18 15:49 SAK [id number]) OP Gait Assessment Gait Distance (Feet) 30 Assistive Devices Assistive Device None Gait Deviations General Gait Pattern Decreased Stride Length Decreased Feet Clearance Flexed Trunk Wide Based Gait Factors Limiting Gait Function Factors Limiting Gait Function Decreased Activity Tolerance Pain Comments Gait Comments Pain increases rapidly requiring seated break PT-OP-H Neuro Start: 09/16/18 11:20 Freq: Status: Active Protocol: Document 09/16/18 11:20 SAK (Rec: 09/22/18 16:40 SAK [id number]) Sensation Evaluation Comments Summary Comments decreased to LT right great toe PT-OP-J Posture/Palpation/Skin Start: 09/16/18 11:20 Freq: Status: Active Protocol: Document 09/16/18 11:20 SAK (Rec: 09/22/18 16:40 SAK [id number]) Posture Evaluation Position Standing Head/C-Spine Posture Forward Head T-Spine Posture Increased Kyphosis L-Spine Posture Decreased Lordosis Weight Distribution Decreased Wt.Bear on (R) Hip Posture (L) Externally Rotated (R) Externally Rotated Skin Assessment Incisional Assessment Incision Appearance/Comments Well-healed with no signs or symptoms of infaction PT-OP-K Range of Motion Start: 09/16/18 11:20 Freq: Status: Active Protocol: Document 09/16/18 11:20 SAK (Rec: 09/22/18 16:40 SAK [id number]) Lumbar Spine Range of Motion Lumbar Spine Active Degrees Flexion 80 Rotation Left 15 Rotation Right 15 Lateral Flexion Left 30 Lateral Flexion Right 30 Comments -5 deg ext with c/o increased pain Hip Goniometric Range of Motion Hip Measured in Degrees Left Flexion w/Knee Flexed 105 Straight Leg Raise 45 Extension 0 Internal Rotation 25 External Rotation 70 Right Flexion w/Knee Flexed 110 Straight Leg Raise 45 Extension 0 Internal Rotation 15 External Rotation 20 PT-OP-M Strength Start: 09/16/18 11:20 Freq: Status: Active Protocol: Document 09/16/18 11:20 [facility] (Rec: 09/22/18 16:40 [facility] [id number]) Trunk Strength Trunk Manual Muscle Testing Core Stabilization Poor core stabilization, difficulty activating TrA and multifidi. Knee Strength Knee Manual Muscle Testing Left Flexion (S2) 5 Normal Extension (L3) 5 Normal Right Flexion (S2) 5 Normal Extension (L3) 5 Normal Ankle/Foot Strength Ankle and Foot Manual Muscle Testing Left Dorsiflexion (L4) 4+ Good+ Plantarflexion (S1) 4+ Good+ Right Dorsiflexion (L4) 4+ Good+ Plantarflexion (S1) 4+ Good+ Toe Strength Toe Manual Muscle Testing Left Great Toe Extension 4+ Good+ Right Great Toe Extension 4- Good- PT-OP-Q Treatments Start: 09/16/18 11:20 Freq: Status: Active Protocol: Document 12/22/18 09:01 [facility] (Rec: 12/22/18 09:35 [facility] [id number]) Cardio Equipment Recumbent Stepper (Sci-Fit) Duration (Minutes) 10 Resistance 2.5 Seat Position 15 Gym Equipment Shuttle Recovery Unilateral Squats Resistance 50 Shuttle Recovery Platform Stable Reps/Time 10x2 Bilateral Squats Resistance 87 Shuttle Recovery Platform Stable Reps/Time 10x2 Shuttle Balance chains yellow Details WBOS EO and EC, shallow squats Reps/Duration 4 min Comments emphasis on core stab Sport Cord fwd,side Cord/Resistance green Reps/Duration 5x forward, 3x each side Comments emphasis on core stab Therapeutic Exercises Supine Exercises SKTC Reps/Minutes 2x Comments opp LE straight for hip flexor stretch HS stretch Reps/Minutes 2x Comments manual Standing Exercises HC stretch Reps/Minutes 2x Comments with hip flexor stretch Gait Training Gait Activity no device Treatment Focus postural alignment and core stab PT-OP-R Modalities Start: 09/16/18 11:20 Freq: Status: Active Protocol: Document 11/18/18 14:30 SAK (Rec: 11/19/18 08:14 SAK [id number]) Electric Stimulation Electric Stimulation Interferential Current (IFC) Body Location bilateral lumbar paraspinals Duration (Minutes) 15 Target/Sweep Sweep High/Low High Patient Position Sitting Combined With Heat/Cold Hot Pack Ultrasound Therapy Treatment Back Treatment Duration (minutes) 8 Patient Position Sidelying Coupling Medium Ultrasound Gel Frequency Setting (mHz) 1 Mode Setting Continuous Duty Cycle 100% Intensity Setting (w/cm2) 1.4 Comments bilateral lumbar paraspinals PT-OP-S Aquatic Treatment Start: 09/16/18 11:20 Freq: Status: Active Protocol: Document 12/27/18 11:00 CLB (Rec: 12/27/18 15:20 CLB [id number]) Aquatics Treatment Pool Entry/Exit Pool Entry/Exit Method Stairs Assistance Standby Assistance Water Walking walking with directional changes Water Level Chest Level Level of Assistance Standby Assistance backward Water Level Chest Level Walking Equipment 2# weight Level of Assistance Standby Assistance march Water Level Chest Level Walking Equipment 2# weight Level of Assistance Standby Assistance forward, side Water Level Chest Level Walking Equipment 2# weight Level of Assistance Standby Assistance Verbal Cues Lower Extremity Exercises knee flex/ext Reps/Duration 10x bilat squats Reps/Duration 15x Comments cues for mm activation sequence circles Details large/slow then small/fast Reps/Duration 10x ea direction Comments mod UE support hip flex/ext Details gentle Equipment Ankle Floats Reps/Duration 10x Comments mod UE support hip ab/ad Details gentle Reps/Duration 10x Comments mod UE support heel toe raise Reps/Duration 10x Lower Extremity Stretches HS, ITB, hip add Equipment Ankle Floats Reps/Duration 2x Upper Extremity Exercises sh flex/ext Reps/Duration 10x Comments DLS emphasis shoulder hor ab/ad Reps/Duration 10x Comments DLS emphasis [place] Activities [place] Activities Bicycle Cross [place] Hip Abduction/Adduction Other Activities deep water hang 8 min w/#2.5 Equipment [place] foam float Duration 20 min Comments minimal to no UE support PT-OP-T Assessment and Plan Start: 09/16/18 11:20 Freq: Status: Active Protocol: Document 12/27/18 11:00 CLB (Rec: 12/27/18 15:20 CLB [id number]) Physical Therapy Assessment Goals Strength Impairment weakness core and hips Short Term Goal (STG) Initiate therapeutic exercise program (goal met) STG Duration 2 wks Senior Living Goal (LTG) Improve strength to at least 4 +/5 throughout trunk and LE's (goal progress) LTG Duration 3 months Pain Impairment Pain level 7/10 Short Term Goal (STG) Decrease pain to no greater than 5/10 (goal progress, reports no pain when in pool for aquatic therapy) STG Duration 6 wks Senior Living Goal (LTG) Decrease pain to no greater than 3/10 LTG Duration 3 months Gait Impairment Requires use of walker, unable to walk community distances Short Term Goal (STG) Able to ambulate with straight cane short community distances (goal progress) STG Duration 6 wks Senior Living Goal (LTG) Patient able to ambulate without device for community distances. LTG Duration 3 months Activity tolerance Impairment Oswestery disability index score 52% Plant Floor Automation Manager Goal (LTG) Decrease Oswestry score to no greater than 30% (goal progress) LTG Duration 3 months Assessment Summary Assessment Pt continues tolerate increased activity in pool. Pt has improved balance with water walking and was able to perform quick directional changes. Physical Therapy Plan Frequency and Duration Frequency of Treatment 3x/Week Duration of Treatment 3 months Plan of Care Start Date 11/12/18 Plan of Care End Date 02/10/19 Next Visit Focus/Plan Next Note Type Treatment Note Next Visit Plan Continue PT POC pending any new recommendations from surgeon
--- NOTE | 2018-12-29 17:09 | PT.OTN ---
Current Diagnoses Radiculopathy, lumbar region (12/29/18) Physical Therapy Treatment Note PT-OP-A Visit Information Start: 09/16/18 11:20 Freq: Status: Active Protocol: Document 12/29/18 08:19 [facility] (Rec: 12/29/18 17:09 [facility] [id number]) Out-Patient Physical Therapy Visit Information Visit Information Visit Type Treatment Note Visit Start Time 08:19 Visit Stop Time 09:19 Total Visit Minutes 60 Visit Number 22 Number of BLACK BELT Visits 0 PT-OP-B Current Condition Start: 09/16/18 11:20 Freq: Status: Active Protocol: Document 09/16/18 11:20 [facility] (Rec: 09/16/18 11:40 [facility] [id number]) Current Condition History of Current Condition Onset Date 07/20/18 Current Complaints bilateral LBP, right great toe numbness History of Current Condition L4-5 medial facetectomy and foraminotomy; reports it was supposed to be day surgery, but had possible SD at end of surgery (controversy over whether had SD vs reaction to medication) but reports hypertensive when coming out of anesthetic. Has not been doing well, pain worse than prior to surgery. States now physician stating he needs right MICHELLE; has seen surgeon but nothing scheduled yet. States he is uncertain about hip surgery both due to feeling most of his pain from back and concern over his recent response to surgery. Walks better with walker; states he limps without use of walker. Some numbness right great toe. Pain worse with standing and walking, minimal with sitting. Takes 2-3 Hydrocodone per day; 1 at a time. Unable to go for walks or golf as previoiusly Prior Treatments and Tests Using heat at home, trying to walk Future Testing and Treatments Planned Sees pain clinic next week to set up appointment for nerve block. Treatment Goals Patient/Caregiver Goals Decrease pain and resume prior activities. 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 PT-OP-C Subjective Start: 09/16/18 11:20 Freq: Status: Active Protocol: Document 12/29/18 08:19 SAK (Rec: 12/29/18 08:39 SAK [id number]) OP-PT Subjective Patient Comments Patient Comments Using walker today, increased pain after a lot of walking yesterday in [place] and took muscle relaxant this am so not feeling as steady on his feet . Went to doctor regarding aneurysm check, scheduled for ultrasound. Walked some without walker and some with. Having injection toward end of month. Requests minimal standing exercises. PT-OP-F Manual Assessment Start: 09/16/18 11:20 Freq: Status: Active Protocol: Document 09/16/18 11:20 SAK (Rec: 09/22/18 16:40 [facility] [id number]) Manual Assessments Soft Tissue Assessment Soft Tissue Mobility Assessment Increased soft tissue tightness bilateral lumbar paraspinals PT-OP-G Mobility & Gait Start: 09/16/18 11:20 Freq: Status: Active Protocol: Document 12/22/18 09:01 SAK (Rec: 12/22/18 15:49 [facility] [id number]) OP Gait Assessment Gait Distance (Feet) 30 Assistive Devices Assistive Device None Gait Deviations General Gait Pattern Decreased Stride Length Decreased Feet Clearance Flexed Trunk Wide Based Gait Factors Limiting Gait Function Factors Limiting Gait Function Decreased Activity Tolerance Pain Comments Gait Comments Pain increases rapidly requiring seated break PT-OP-H Neuro Start: 09/16/18 11:20 Freq: Status: Active Protocol: Document 09/16/18 11:20 SAK (Rec: 09/22/18 16:40 [facility] [id number]) Sensation Evaluation Comments Summary Comments decreased to LT right great toe PT-OP-J Posture/Palpation/Skin Start: 09/16/18 11:20 Freq: Status: Active Protocol: Document 09/16/18 11:20 SAK (Rec: 09/22/18 16:40 [facility] [id number]) Posture Evaluation Position Standing Head/C-Spine Posture Forward Head T-Spine Posture Increased Kyphosis L-Spine Posture Decreased Lordosis Weight Distribution Decreased Wt.Bear on (R) Hip Posture (L) Externally Rotated (R) Externally Rotated Skin Assessment Incisional Assessment Incision Appearance/Comments Well-healed with no signs or symptoms of infaction PT-OP-K Range of Motion Start: 09/16/18 11:20 Freq: Status: Active Protocol: Document 09/16/18 11:20 [facility] (Rec: 09/22/18 16:40 [facility] [id number]) Lumbar Spine Range of Motion Lumbar Spine Active Degrees Flexion 80 Rotation Left 15 Rotation Right 15 Lateral Flexion Left 30 Lateral Flexion Right 30 Comments -5 deg ext with c/o increased pain Hip Goniometric Range of Motion Hip Measured in Degrees Left Flexion w/Knee Flexed 105 Straight Leg Raise 45 Extension 0 Internal Rotation 25 External Rotation 70 Right Flexion w/Knee Flexed 110 Straight Leg Raise 45 Extension 0 Internal Rotation 15 External Rotation 20 PT-OP-M Strength Start: 09/16/18 11:20 Freq: Status: Active Protocol: Document 09/16/18 11:20 [facility] (Rec: 09/22/18 16:40 [facility] [id number]) Trunk Strength Trunk Manual Muscle Testing Core Stabilization Poor core stabilization, difficulty activating TrA and multifidi. Knee Strength Knee Manual Muscle Testing Left Flexion (S2) 5 Normal Extension (L3) 5 Normal Right Flexion (S2) 5 Normal Extension (L3) 5 Normal Ankle/Foot Strength Ankle and Foot Manual Muscle Testing Left Dorsiflexion (L4) 4+ Good+ Plantarflexion (S1) 4+ Good+ Right Dorsiflexion (L4) 4+ Good+ Plantarflexion (S1) 4+ Good+ Toe Strength Toe Manual Muscle Testing Left Great Toe Extension 4+ Good+ Right Great Toe Extension 4- Good- PT-OP-Q Treatments Start: 09/16/18 11:20 Freq: Status: Active Protocol: Document 12/29/18 08:19 [facility] (Rec: 12/29/18 08:39 [facility] [id number]) Cardio Equipment Recumbent Stepper (Sci-Fit) Duration (Minutes) 10 Resistance 2.5 Seat Position 15 Gym Equipment Shuttle Recovery Unilateral Squats Resistance 50 Shuttle Recovery Platform Stable Reps/Time 10x2 Bilateral Squats Resistance 87 Shuttle Recovery Platform Stable Reps/Time 10x2 Therapeutic Exercises Supine Exercises TrA with march Reps/Minutes 10x SKTC Reps/Minutes 2x Comments opp LE straight for hip flexor stretch gluteal sets Reps/Minutes 10x abdominal corseting Reps/Minutes 5x HS stretch Reps/Minutes 2x Comments manual Sitting Exercises row, sh ext Equipment Used L1 TB Reps/Minutes 10x Standing Exercises HC stretch Reps/Minutes 2x Comments with hip flexor stretch PT-OP-R Modalities Start: 09/16/18 11:20 Freq: Status: Active Protocol: Document 12/29/18 08:19 SAK (Rec: 12/29/18 08:39 [facility] [id number]) Electric Stimulation Electric Stimulation Interferential Current (IFC) Body Location bilateral lumbar paraspinals Duration (Minutes) 15 Target/Sweep Sweep High/Low High Patient Position Sitting Combined With Heat/Cold Hot Pack Ultrasound Therapy Treatment Back Treatment Duration (minutes) 8 Patient Position Sidelying Coupling Medium Ultrasound Gel Frequency Setting (mHz) 1 Mode Setting Continuous Duty Cycle 100% Intensity Setting (w/cm2) 1.4 Comments bilateral lumbar paraspinals PT-OP-S Aquatic Treatment Start: 09/16/18 11:20 Freq: Status: Active Protocol: Document 12/27/18 11:00 CLB (Rec: 12/27/18 15:20 [facility] [id number]) Aquatics Treatment Pool Entry/Exit Pool Entry/Exit Method Stairs Assistance Standby Assistance Water Walking walking with directional changes Water Level Chest Level Level of Assistance Standby Assistance backward Water Level Chest Level Walking Equipment 2# weight Level of Assistance Standby Assistance march Water Level Chest Level Walking Equipment 2# weight Level of Assistance Standby Assistance forward, side Water Level Chest Level Walking Equipment 2# weight Level of Assistance Standby Assistance Verbal Cues Lower Extremity Exercises knee flex/ext Reps/Duration 10x bilat squats Reps/Duration 15x Comments cues for mm activation sequence circles Details large/slow then small/fast Reps/Duration 10x ea direction Comments mod UE support hip flex/ext Details gentle Equipment Ankle Floats Reps/Duration 10x Comments mod UE support hip ab/ad Details gentle Reps/Duration 10x Comments mod UE support heel toe raise Reps/Duration 10x Lower Extremity Stretches HS, ITB, hip add Equipment Ankle Floats Reps/Duration 2x Upper Extremity Exercises sh flex/ext Reps/Duration 10x Comments DLS emphasis shoulder hor ab/ad Reps/Duration 10x Comments DLS emphasis [place] Activities [place] Activities Bicycle Cross [place] Hip Abduction/Adduction Other Activities deep water hang 8 min w/#2.5 Equipment [place] foam float Duration 20 min Comments minimal to no UE support PT-OP-T Assessment and Plan Start: 09/16/18 11:20 Freq: Status: Active Protocol: Document 12/29/18 08:19 SAK (Rec: 12/29/18 17:09 [facility] [id number]) Physical Therapy Assessment Goals Strength Impairment weakness core and hips Short Term Goal (STG) Initiate therapeutic exercise program (goal met) STG Duration 2 wks Care Home Goal (LTG) Improve strength to at least 4 +/5 throughout trunk and LE's (goal progress) LTG Duration 3 months Pain Impairment Pain level 7/10 Short Term Goal (STG) Decrease pain to no greater than 5/10 (goal progress, reports no pain when in pool for aquatic therapy) STG Duration 6 wks [place] Goal (LTG) Decrease pain to no greater than 3/10 LTG Duration 3 months Gait Impairment Requires use of walker, unable to walk community distances Short Term Goal (STG) Able to ambulate with straight cane short community distances (goal progress) STG Duration 6 wks Care Home Goal (LTG) Patient able to ambulate without device for community distances. LTG Duration 3 months Activity tolerance Impairment Oswestery disability index score 52% [place] Goal (LTG) Decrease Oswestry score to no greater than 30% (goal progress) LTG Duration 3 months Assessment Summary Assessment Decreased tolerance for ther ex or gait today due to significant increased amount of walking yesterday with resulting increase in pain. Physical Therapy Plan Frequency and Duration Frequency of Treatment 3x/Week Duration of Treatment 3 months Plan of Care Start Date 11/12/18 Plan of Care End Date 02/10/19 Therapeutic Interventions Therapeutic Interventions Aquatic Therapy Home Exercise Program Manual Therapy Neuromuscular Re-education Patient/Caregiver Education Self-Care/Home Management Soft Tissue Mobilization Taping Therapeutic Activities Therapeutic Exercises Modalities Cold Pack/Ice Massage Electric Stimulation Hot Packs Ultrasound Next Visit Focus/Plan Next Note Type Treatment Note Next Visit Plan Continue PT; combination land and aquatic PT with emphasis on strengthening and postural stabilization to improve this patient's function and return him to a more active lifestyle .
--- NOTE | 2018-12-31 14:10 | PT.OTN ---
Current Diagnoses Radiculopathy, lumbar region (12/29/18) Physical Therapy Treatment Note PT-OP-A Visit Information Start: 09/16/18 11:20 Freq: Status: Active Protocol: Document 12/31/18 11:00 LJ (Rec: 12/31/18 14:10 LJ [id number]) Out-Patient Physical Therapy Visit Information Visit Information Visit Type Aquatic Treatment Note Visit Start Time 11:00 Visit Stop Time 11:45 Total Visit Minutes 45 Visit Number 23 Number of PRODUCT DEVELOPMENT TECHNICIAN Visits 1 PT-OP-B Current Condition Start: 09/16/18 11:20 Freq: Status: Active Protocol: Document 09/16/18 11:20 SAK (Rec: 09/16/18 11:40 SAK [id number]) Current Condition History of Current Condition Onset Date 07/20/18 Current Complaints bilateral LBP, right great toe numbness History of Current Condition L4-5 medial facetectomy and foraminotomy; reports it was supposed to be day surgery, but had possible IL at end of surgery (controversy over whether had IL vs reaction to medication) but reports hypertensive when coming out of anesthetic. Has not been doing well, pain worse than prior to surgery. States now physician stating he needs right MICHELLE; has seen surgeon but nothing scheduled yet. States he is uncertain about hip surgery both due to feeling most of his pain from back and concern over his recent response to surgery. Walks better with walker; states he limps without use of walker. Some numbness right great toe. Pain worse with standing and walking, minimal with sitting. Takes 2-3 Hydrocodone per day; 1 at a time. Unable to go for walks or golf as previoiusly Prior Treatments and Tests Using heat at home, trying to walk Future Testing and Treatments Planned Sees pain clinic next week to set up appointment for nerve block. Treatment Goals Patient/Caregiver Goals Decrease pain and resume prior activities. 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 PT-OP-C Subjective Start: 09/16/18 11:20 Freq: Status: Active Protocol: Document 12/31/18 11:00 LJ (Rec: 12/31/18 14:10 LJ [id number]) OP-PT Subjective Patient Comments Patient Comments Pt states he will be receiving nerve blocks every two weeks soon. Did not specify date. No c/o increase in pain over what is typical for him PT-OP-F Manual Assessment Start: 09/16/18 11:20 Freq: Status: Active Protocol: Document 09/16/18 11:20 SAK (Rec: 09/22/18 16:40 SAK [id number]) Manual Assessments Soft Tissue Assessment Soft Tissue Mobility Assessment Increased soft tissue tightness bilateral lumbar paraspinals PT-OP-G Mobility & Gait Start: 09/16/18 11:20 Freq: Status: Active Protocol: Document 12/22/18 09:01 SAK (Rec: 12/22/18 15:49 SAK [id number]) OP Gait Assessment Gait Distance (Feet) 30 Assistive Devices Assistive Device None Gait Deviations General Gait Pattern Decreased Stride Length Decreased Feet Clearance Flexed Trunk Wide Based Gait Factors Limiting Gait Function Factors Limiting Gait Function Decreased Activity Tolerance Pain Comments Gait Comments Pain increases rapidly requiring seated break PT-OP-H Neuro Start: 09/16/18 11:20 Freq: Status: Active Protocol: Document 09/16/18 11:20 SAK (Rec: 09/22/18 16:40 SAK [id number]) Sensation Evaluation Comments Summary Comments decreased to LT right great toe PT-OP-J Posture/Palpation/Skin Start: 09/16/18 11:20 Freq: Status: Active Protocol: Document 09/16/18 11:20 SAK (Rec: 09/22/18 16:40 SAK [id number]) Posture Evaluation Position Standing Head/C-Spine Posture Forward Head T-Spine Posture Increased Kyphosis L-Spine Posture Decreased Lordosis Weight Distribution Decreased Wt.Bear on (R) Hip Posture (L) Externally Rotated (R) Externally Rotated Skin Assessment Incisional Assessment Incision Appearance/Comments Well-healed with no signs or symptoms of infaction PT-OP-K Range of Motion Start: 09/16/18 11:20 Freq: Status: Active Protocol: Document 09/16/18 11:20 SAK (Rec: 09/22/18 16:40 SAK [id number]) Lumbar Spine Range of Motion Lumbar Spine Active Degrees Flexion 80 Rotation Left 15 Rotation Right 15 Lateral Flexion Left 30 Lateral Flexion Right 30 Comments -5 deg ext with c/o increased pain Hip Goniometric Range of Motion Hip Measured in Degrees Left Flexion w/Knee Flexed 105 Straight Leg Raise 45 Extension 0 Internal Rotation 25 External Rotation 70 Right Flexion w/Knee Flexed 110 Straight Leg Raise 45 Extension 0 Internal Rotation 15 External Rotation 20 PT-OP-M Strength Start: 09/16/18 11:20 Freq: Status: Active Protocol: Document 09/16/18 11:20 [facility] (Rec: 09/22/18 16:40 [facility] [id number]) Trunk Strength Trunk Manual Muscle Testing Core Stabilization Poor core stabilization, difficulty activating TrA and multifidi. Knee Strength Knee Manual Muscle Testing Left Flexion (S2) 5 Normal Extension (L3) 5 Normal Right Flexion (S2) 5 Normal Extension (L3) 5 Normal Ankle/Foot Strength Ankle and Foot Manual Muscle Testing Left Dorsiflexion (L4) 4+ Good+ Plantarflexion (S1) 4+ Good+ Right Dorsiflexion (L4) 4+ Good+ Plantarflexion (S1) 4+ Good+ Toe Strength Toe Manual Muscle Testing Left Great Toe Extension 4+ Good+ Right Great Toe Extension 4- Good- PT-OP-Q Treatments Start: 09/16/18 11:20 Freq: Status: Active Protocol: Document 12/29/18 08:19 [facility] (Rec: 12/29/18 08:39 [facility] [id number]) Cardio Equipment Recumbent Stepper (Sci-Fit) Duration (Minutes) 10 Resistance 2.5 Seat Position 15 Gym Equipment Shuttle Recovery Unilateral Squats Resistance 50 Shuttle Recovery Platform Stable Reps/Time 10x2 Bilateral Squats Resistance 87 Shuttle Recovery Platform Stable Reps/Time 10x2 Therapeutic Exercises Supine Exercises TrA with march Reps/Minutes 10x SKTC Reps/Minutes 2x Comments opp LE straight for hip flexor stretch gluteal sets Reps/Minutes 10x abdominal corseting Reps/Minutes 5x HS stretch Reps/Minutes 2x Comments manual Sitting Exercises row, sh ext Equipment Used L1 TB Reps/Minutes 10x Standing Exercises HC stretch Reps/Minutes 2x Comments with hip flexor stretch PT-OP-R Modalities Start: 09/16/18 11:20 Freq: Status: Active Protocol: Document 12/29/18 08:19 SAK (Rec: 12/29/18 08:39 SAK [id number]) Electric Stimulation Electric Stimulation Interferential Current (IFC) Body Location bilateral lumbar paraspinals Duration (Minutes) 15 Target/Sweep Sweep High/Low High Patient Position Sitting Combined With Heat/Cold Hot Pack Ultrasound Therapy Treatment Back Treatment Duration (minutes) 8 Patient Position Sidelying Coupling Medium Ultrasound Gel Frequency Setting (mHz) 1 Mode Setting Continuous Duty Cycle 100% Intensity Setting (w/cm2) 1.4 Comments bilateral lumbar paraspinals PT-OP-S Aquatic Treatment Start: 09/16/18 11:20 Freq: Status: Active Protocol: Document 12/31/18 11:00 LJ (Rec: 12/31/18 14:10 LJ [id number]) Aquatics Treatment Pool Entry/Exit Pool Entry/Exit Method Stairs Assistance Independent Water Walking [place] March Water Level Chest Level Comments straight and slight abduction walking with directional changes Water Level Chest Level Level of Assistance Standby Assistance backward Water Level Chest Level Walking Equipment 2# weight Level of Assistance Standby Assistance march Water Level Chest Level Walking Equipment 2# weight Level of Assistance Standby Assistance Lower Extremity Exercises HS curl at wall Water Level Chest Level Comments holding on to wall, cues for posture squats Reps/Duration 15x Comments cues for mm activation sequence circles Details large/slow then small/fast Reps/Duration 10x ea direction Comments mod UE support hip flex/ext Details gentle Equipment Ankle Floats Reps/Duration 10x Comments mod UE support hip ab/ad Details gentle w/cross over front and back Reps/Duration 10x Comments mod UE support Lower Extremity Stretches Single knee to chest bilat Details at wall Body Position Standing Water Level Chest Level Equipment Small Noodle Reps/Duration 2x30' piriformis Details at wall Body Position squatting Water Level Waist Level Reps/Duration x2 bilaterally Comments back against wall HS, ITB, hip add Equipment Small Noodle Reps/Duration 2x Comments Unable to feel ITB stretch Upper Extremity Stretches forward walking w/UE paddles Reps/Duration 30 M [place] Activities [place] Activities Bicycle Cross [place] Hip Abduction/Adduction Other Activities deep water hang 10 min w/#2.5 Equipment [place] foam float Duration 10 min Comments minimal to no UE support PT-OP-T Assessment and Plan Start: 09/16/18 11:20 Freq: Status: Active Protocol: Document 12/31/18 11:00 FLACO (Rec: 12/31/18 14:10 [facility] [id number]) Physical Therapy Assessment Goals Strength Impairment weakness core and hips Short Term Goal (STG) Initiate therapeutic exercise program (goal met) STG Duration 2 wks Assisted Goal (LTG) Improve strength to at least 4 +/5 throughout trunk and LE's (goal progress) LTG Duration 3 months Pain Impairment Pain level 7/10 Short Term Goal (STG) Decrease pain to no greater than 5/10 (goal progress, reports no pain when in pool for aquatic therapy) STG Duration 6 wks [employer] Goal (LTG) Decrease pain to no greater than 3/10 LTG Duration 3 months Gait Impairment Requires use of walker, unable to walk community distances Short Term Goal (STG) Able to ambulate with straight cane short community distances (goal progress) STG Duration 6 wks [employer] Goal (LTG) Patient able to ambulate without device for community distances. LTG Duration 3 months Activity tolerance Impairment Oswestery disability index score 52% Assisted Goal (LTG) Decrease Oswestry score to no greater than 30% (goal progress) LTG Duration 3 months Assessment Summary Assessment Pt improving with LE exercise ROM and ability to increase and tolerate stretching. Able to perform R piriformis stretch beginning gradually to lifting ankle onto L knee for short time. Unable to perform that stretch in the past. Physical Therapy Plan Frequency and Duration Frequency of Treatment 3x/Week Duration of Treatment 3 months Plan of Care Start Date 11/12/18 Plan of Care End Date 02/10/19 Therapeutic Interventions Therapeutic Interventions Aquatic Therapy Home Exercise Program Manual Therapy Neuromuscular Re-education Patient/Caregiver Education Self-Care/Home Management Soft Tissue Mobilization Taping Therapeutic Activities Therapeutic Exercises Modalities Cold Pack/Ice Massage Electric Stimulation Hot Packs Ultrasound Next Visit Focus/Plan Next Note Type Treatment Note Next Visit Plan Continue PT; combination land and aquatic PT with emphasis on strengthening and postural stabilization to improve this patient's function and return him to a more active lifestyle . Incorporate trunk flexibility exercises and stretches as tolerated.
--- NOTE | 2019-01-03 14:34 | PT.OTN ---
Current Diagnoses Radiculopathy, lumbar region (12/31/18) Physical Therapy Treatment Note PT-OP-A Visit Information Start: 09/16/18 11:20 Freq: Status: Active Protocol: Document 01/03/19 10:15 CLB (Rec: 01/03/19 14:34 CLB [id number]) Out-Patient Physical Therapy Visit Information Visit Information Visit Type Aquatic Treatment Note Visit Start Time 10:15 Visit Stop Time 11:00 Total Visit Minutes 45 Visit Number 24 Number of SENIOR EXECUTIVE ASSISTANT Visits 2 PT-OP-B Current Condition Start: 09/16/18 11:20 Freq: Status: Active Protocol: Document 09/16/18 11:20 SAK (Rec: 09/16/18 11:40 SAK [id number]) Current Condition History of Current Condition Onset Date 07/20/18 Current Complaints bilateral LBP, right great toe numbness History of Current Condition L4-5 medial facetectomy and foraminotomy; reports it was supposed to be day surgery, but had possible [place] at end of surgery (controversy over whether had [place] vs reaction to medication) but reports hypertensive when coming out of anesthetic. Has not been doing well, pain worse than prior to surgery. States now physician stating he needs right MICHELLE; has seen surgeon but nothing scheduled yet. States he is uncertain about hip surgery both due to feeling most of his pain from back and concern over his recent response to surgery. Walks better with walker; states he limps without use of walker. Some numbness right great toe. Pain worse with standing and walking, minimal with sitting. Takes 2-3 Hydrocodone per day; 1 at a time. Unable to go for walks or golf as previoiusly Prior Treatments and Tests Using heat at home, trying to walk Future Testing and Treatments Planned Sees pain clinic next week to set up appointment for nerve block. Treatment Goals Patient/Caregiver Goals Decrease pain and resume prior activities. 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 PT-OP-C Subjective Start: 09/16/18 11:20 Freq: Status: Active Protocol: Document 01/03/19 10:15 CLB (Rec: 01/03/19 14:34 CLB [id number]) OP-PT Subjective Patient Comments Patient Comments Pt stated he [place] some balls [place] the [place]. It did cause some back pain but subsided once he stopped and he had no lasting effects. PT-OP-F Manual Assessment Start: 09/16/18 11:20 Freq: Status: Active Protocol: Document 09/16/18 11:20 SAK (Rec: 09/22/18 16:40 SAK [id number]) Manual Assessments Soft Tissue Assessment Soft Tissue Mobility Assessment Increased soft tissue tightness bilateral lumbar paraspinals PT-OP-G Mobility & Gait Start: 09/16/18 11:20 Freq: Status: Active Protocol: Document 12/22/18 09:01 SAK (Rec: 12/22/18 15:49 SAK [id number]) OP Gait Assessment Gait Distance (Feet) 30 Assistive Devices Assistive Device None Gait Deviations General Gait Pattern Decreased Stride Length Decreased Feet Clearance Flexed Trunk Wide Based Gait Factors Limiting Gait Function Factors Limiting Gait Function Decreased Activity Tolerance Pain Comments Gait Comments Pain increases rapidly requiring seated break PT-OP-H Neuro Start: 09/16/18 11:20 Freq: Status: Active Protocol: Document 09/16/18 11:20 SAK (Rec: 09/22/18 16:40 SAK [id number]) Sensation Evaluation Comments Summary Comments decreased to LT right great toe PT-OP-J Posture/Palpation/Skin Start: 09/16/18 11:20 Freq: Status: Active Protocol: Document 09/16/18 11:20 SAK (Rec: 09/22/18 16:40 SAK [id number]) Posture Evaluation Position Standing Head/C-Spine Posture Forward Head T-Spine Posture Increased Kyphosis L-Spine Posture Decreased Lordosis Weight Distribution Decreased Wt.Bear on (R) Hip Posture (L) Externally Rotated (R) Externally Rotated Skin Assessment Incisional Assessment Incision Appearance/Comments Well-healed with no signs or symptoms of infaction PT-OP-K Range of Motion Start: 09/16/18 11:20 Freq: Status: Active Protocol: Document 09/16/18 11:20 SAK (Rec: 09/22/18 16:40 [facility] [id number]) Lumbar Spine Range of Motion Lumbar Spine Active Degrees Flexion 80 Rotation Left 15 Rotation Right 15 Lateral Flexion Left 30 Lateral Flexion Right 30 Comments -5 deg ext with c/o increased pain Hip Goniometric Range of Motion Hip Measured in Degrees Left Flexion w/Knee Flexed 105 Straight Leg Raise 45 Extension 0 Internal Rotation 25 External Rotation 70 Right Flexion w/Knee Flexed 110 Straight Leg Raise 45 Extension 0 Internal Rotation 15 External Rotation 20 PT-OP-M Strength Start: 09/16/18 11:20 Freq: Status: Active Protocol: Document 09/16/18 11:20 [facility] (Rec: 09/22/18 16:40 [facility] [id number]) Trunk Strength Trunk Manual Muscle Testing Core Stabilization Poor core stabilization, difficulty activating TrA and multifidi. Knee Strength Knee Manual Muscle Testing Left Flexion (S2) 5 Normal Extension (L3) 5 Normal Right Flexion (S2) 5 Normal Extension (L3) 5 Normal Ankle/Foot Strength Ankle and Foot Manual Muscle Testing Left Dorsiflexion (L4) 4+ Good+ Plantarflexion (S1) 4+ Good+ Right Dorsiflexion (L4) 4+ Good+ Plantarflexion (S1) 4+ Good+ Toe Strength Toe Manual Muscle Testing Left Great Toe Extension 4+ Good+ Right Great Toe Extension 4- Good- PT-OP-Q Treatments Start: 09/16/18 11:20 Freq: Status: Active Protocol: Document 12/29/18 08:19 [facility] (Rec: 12/29/18 08:39 [facility] [id number]) Cardio Equipment Recumbent Stepper (Sci-Fit) Duration (Minutes) 10 Resistance 2.5 Seat Position 15 Gym Equipment Shuttle Recovery Unilateral Squats Resistance 50 Shuttle Recovery Platform Stable Reps/Time 10x2 Bilateral Squats Resistance 87 Shuttle Recovery Platform Stable Reps/Time 10x2 Therapeutic Exercises Supine Exercises TrA with march Reps/Minutes 10x SKTC Reps/Minutes 2x Comments opp LE straight for hip flexor stretch gluteal sets Reps/Minutes 10x abdominal corseting Reps/Minutes 5x HS stretch Reps/Minutes 2x Comments manual Sitting Exercises row, sh ext Equipment Used L1 TB Reps/Minutes 10x Standing Exercises HC stretch Reps/Minutes 2x Comments with hip flexor stretch PT-OP-R Modalities Start: 09/16/18 11:20 Freq: Status: Active Protocol: Document 12/29/18 08:19 SAK (Rec: 12/29/18 08:39 SAK [id number]) Electric Stimulation Electric Stimulation Interferential Current (IFC) Body Location bilateral lumbar paraspinals Duration (Minutes) 15 Target/Sweep Sweep High/Low High Patient Position Sitting Combined With Heat/Cold Hot Pack Ultrasound Therapy Treatment Back Treatment Duration (minutes) 8 Patient Position Sidelying Coupling Medium Ultrasound Gel Frequency Setting (mHz) 1 Mode Setting Continuous Duty Cycle 100% Intensity Setting (w/cm2) 1.4 Comments bilateral lumbar paraspinals PT-OP-S Aquatic Treatment Start: 09/16/18 11:20 Freq: Status: Active Protocol: Document 01/03/19 10:15 CLB (Rec: 01/03/19 14:34 CLB [id number]) Aquatics Treatment Pool Entry/Exit Pool Entry/Exit Method Stairs Assistance Independent Water Walking backward Water Level Chest Level Walking Equipment 2# weight Level of Assistance Standby Assistance march Water Level Chest Level Walking Equipment 2# weight Level of Assistance Standby Assistance Lower Extremity Exercises 8 step ups Water Level Chest Level Reps/Duration 3x each way squats Reps/Duration 15x Comments cues for mm activation sequence circles Details large/slow then small/fast Reps/Duration 10x ea direction Comments mod UE support hip flex/ext Details gentle Equipment Ankle Floats Reps/Duration 10x Comments mod UE support hip ab/ad Details gentle w/cross over front and back Reps/Duration 10x Comments mod UE support heel toe raise Reps/Duration 10x Lower Extremity Stretches Single knee to chest bilat Details at wall Body Position Standing Water Level Chest Level Equipment Small Noodle Reps/Duration 2x30' HS, ITB, hip add Equipment Small Noodle Reps/Duration 2x Comments Unable to feel ITB stretch [place] Activities [place] Activities Bicycle [place] Hip Abduction/Adduction Other Activities deep water hang 10 min w/#2.5, ruby foam float and black neck float. Equipment ruby foam float Duration 10 min Comments minimal to no UE support PT-OP-T Assessment and Plan Start: 09/16/18 11:20 Freq: Status: Active Protocol: Document 01/03/19 10:15 CLB (Rec: 01/03/19 14:34 CLB [id number]) Physical Therapy Assessment Goals Strength Impairment weakness core and hips Short Term Goal (STG) Initiate therapeutic exercise program (goal met) STG Duration 2 wks Aircraft Parts Assembler Goal (LTG) Improve strength to at least 4 +/5 throughout trunk and LE's (goal progress) LTG Duration 3 months Pain Impairment Pain level 7/10 Short Term Goal (STG) Decrease pain to no greater than 5/10 (goal progress, reports no pain when in pool for aquatic therapy) STG Duration 6 wks [facility] Goal (LTG) Decrease pain to no greater than 3/10 LTG Duration 3 months Gait Impairment Requires use of walker, unable to walk community distances Short Term Goal (STG) Able to ambulate with straight cane short community distances (goal progress) STG Duration 6 wks Aircraft Parts Assembler Goal (LTG) Patient able to ambulate without device for community distances. LTG Duration 3 months Activity tolerance Impairment Oswestery disability index score 52% Aircraft Parts Assembler Goal (LTG) Decrease Oswestry score to no greater than 30% (goal progress) LTG Duration 3 months Assessment Summary Assessment Pt improving with balance and was able to perform step ups with cues for mm activation. Physical Therapy Plan Frequency and Duration Frequency of Treatment 3x/Week Duration of Treatment 3 months Plan of Care Start Date 11/12/18 Plan of Care End Date 02/10/19 Next Visit Focus/Plan Next Note Type Treatment Note Next Visit Plan Continue PT; combination land and aquatic PT with emphasis on strengthening and postural stabilization to improve this patient's function and return him to a more active lifestyle . Incorporate trunk flexibility exercises and stretches as tolerated.
--- NOTE | 2019-01-05 10:16 | PT.OTN ---
Current Diagnoses Radiculopathy, lumbar region (01/05/19) Physical Therapy Treatment Note PT-OP-A Visit Information Start: 09/16/18 11:20 Freq: Status: Active Protocol: Document 01/05/19 09:06 [facility] (Rec: 01/05/19 09:53 [facility] [id number]) Out-Patient Physical Therapy Visit Information Visit Information Visit Type Treatment Note Visit Start Time 09:00 Visit Stop Time 10:00 Total Visit Minutes 60 Visit Number 25 Number of MOBILE CRANE OPERATOR Visits 3 PT-OP-B Current Condition Start: 09/16/18 11:20 Freq: Status: Active Protocol: Document 09/16/18 11:20 SAK (Rec: 09/16/18 11:40 [facility] [id number]) Current Condition History of Current Condition Onset Date 07/20/18 Current Complaints bilateral LBP, right great toe numbness History of Current Condition L4-5 medial facetectomy and foraminotomy; reports it was supposed to be day surgery, but had possible [place] at end of surgery (controversy over whether had [place] vs reaction to medication) but reports hypertensive when coming out of anesthetic. Has not been doing well, pain worse than prior to surgery. States now physician stating he needs right MICHELLE; has seen surgeon but nothing scheduled yet. States he is uncertain about hip surgery both due to feeling most of his pain from back and concern over his recent response to surgery. Walks better with walker; states he limps without use of walker. Some numbness right great toe. Pain worse with standing and walking, minimal with sitting. Takes 2-3 Hydrocodone per day; 1 at a time. Unable to go for walks or golf as previoiusly Prior Treatments and Tests Using heat at home, trying to walk Future Testing and Treatments Planned Sees pain clinic next week to set up appointment for nerve block. Treatment Goals Patient/Caregiver Goals Decrease pain and resume prior activities. 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 PT-OP-C Subjective Start: 09/16/18 11:20 Freq: Status: Active Protocol: Document 01/05/19 09:06 SAK (Rec: 01/05/19 09:53 SAK [id number]) OP-PT Subjective Patient Comments Patient Comments Having some pain down back of right leg, thinking he injured hamstring; hurts in sitting when he bends over. Having nerve block 01/13/19 PT-OP-F Manual Assessment Start: 09/16/18 11:20 Freq: Status: Active Protocol: Document 09/16/18 11:20 SAK (Rec: 09/22/18 16:40 SAK [id number]) Manual Assessments Soft Tissue Assessment Soft Tissue Mobility Assessment Increased soft tissue tightness bilateral lumbar paraspinals PT-OP-G Mobility & Gait Start: 09/16/18 11:20 Freq: Status: Active Protocol: Document 12/22/18 09:01 SAK (Rec: 12/22/18 15:49 SAK [id number]) OP Gait Assessment Gait Distance (Feet) 30 Assistive Devices Assistive Device None Gait Deviations General Gait Pattern Decreased Stride Length Decreased Feet Clearance Flexed Trunk Wide Based Gait Factors Limiting Gait Function Factors Limiting Gait Function Decreased Activity Tolerance Pain Comments Gait Comments Pain increases rapidly requiring seated break PT-OP-H Neuro Start: 09/16/18 11:20 Freq: Status: Active Protocol: Document 09/16/18 11:20 SAK (Rec: 09/22/18 16:40 SAK [id number]) Sensation Evaluation Comments Summary Comments decreased to LT right great toe PT-OP-J Posture/Palpation/Skin Start: 09/16/18 11:20 Freq: Status: Active Protocol: Document 09/16/18 11:20 SAK (Rec: 09/22/18 16:40 SAK [id number]) Posture Evaluation Position Standing Head/C-Spine Posture Forward Head T-Spine Posture Increased Kyphosis L-Spine Posture Decreased Lordosis Weight Distribution Decreased Wt.Bear on (R) Hip Posture (L) Externally Rotated (R) Externally Rotated Skin Assessment Incisional Assessment Incision Appearance/Comments Well-healed with no signs or symptoms of infaction PT-OP-K Range of Motion Start: 09/16/18 11:20 Freq: Status: Active Protocol: Document 09/16/18 11:20 SAK (Rec: 09/22/18 16:40 SAK [id number]) Lumbar Spine Range of Motion Lumbar Spine Active Degrees Flexion 80 Rotation Left 15 Rotation Right 15 Lateral Flexion Left 30 Lateral Flexion Right 30 Comments -5 deg ext with c/o increased pain Hip Goniometric Range of Motion Hip Measured in Degrees Left Flexion w/Knee Flexed 105 Straight Leg Raise 45 Extension 0 Internal Rotation 25 External Rotation 70 Right Flexion w/Knee Flexed 110 Straight Leg Raise 45 Extension 0 Internal Rotation 15 External Rotation 20 PT-OP-M Strength Start: 09/16/18 11:20 Freq: Status: Active Protocol: Document 09/16/18 11:20 [facility] (Rec: 09/22/18 16:40 [facility] [id number]) Trunk Strength Trunk Manual Muscle Testing Core Stabilization Poor core stabilization, difficulty activating TrA and multifidi. Knee Strength Knee Manual Muscle Testing Left Flexion (S2) 5 Normal Extension (L3) 5 Normal Right Flexion (S2) 5 Normal Extension (L3) 5 Normal Ankle/Foot Strength Ankle and Foot Manual Muscle Testing Left Dorsiflexion (L4) 4+ Good+ Plantarflexion (S1) 4+ Good+ Right Dorsiflexion (L4) 4+ Good+ Plantarflexion (S1) 4+ Good+ Toe Strength Toe Manual Muscle Testing Left Great Toe Extension 4+ Good+ Right Great Toe Extension 4- Good- PT-OP-Q Treatments Start: 09/16/18 11:20 Freq: Status: Active Protocol: Document 01/05/19 09:06 [facility] (Rec: 01/05/19 09:53 [facility] [id number]) Cardio Equipment Recumbent Stepper (Sci-Fit) Duration (Minutes) 10 Resistance 2.5 Seat Position 15 Therapeutic Exercises Sitting Exercises HS stretch Reps/Minutes 2x Standing Exercises step-ups Reps/Minutes 10x ea Comments emphasis on gluteal activation , hip extension for upright posture Gait Training Gait Activity no device Treatment Focus postural alignment and core stab, gluteal activation Comments Patient with increased forward bend with inc distance/time Manual Therapy Treatment Manual Traction Lumbar Body Position Hooklying Reps/Duration 10' Comments strap and pillow at patient's upper thighs PT-OP-R Modalities Start: 09/16/18 11:20 Freq: Status: Active Protocol: Document 01/05/19 09:06 [facility] (Rec: 01/05/19 09:53 [facility] [id number]) Electric Stimulation Electric Stimulation Interferential Current (IFC) Body Location bilateral lumbar paraspinals Duration (Minutes) 15 Target/Sweep Sweep High/Low High Patient Position Sitting Combined With Heat/Cold Hot Pack Ultrasound Therapy Treatment Back Treatment Duration (minutes) 8 Patient Position Sidelying Coupling Medium Ultrasound Gel Frequency Setting (mHz) 1 Mode Setting Continuous Duty Cycle 100% Intensity Setting (w/cm2) 1.4 Comments bilateral lumbar paraspinals PT-OP-S Aquatic Treatment Start: 09/16/18 11:20 Freq: Status: Active Protocol: Document 01/03/19 10:15 CLB (Rec: 01/03/19 14:34 CLB [id number]) Aquatics Treatment Pool Entry/Exit Pool Entry/Exit Method Stairs Assistance Independent Water Walking backward Water Level Chest Level Walking Equipment 2# weight Level of Assistance Standby Assistance march Water Level Chest Level Walking Equipment 2# weight Level of Assistance Standby Assistance Lower Extremity Exercises 8 step ups Water Level Chest Level Reps/Duration 3x each way squats Reps/Duration 15x Comments cues for mm activation sequence circles Details large/slow then small/fast Reps/Duration 10x ea direction Comments mod UE support hip flex/ext Details gentle Equipment Ankle Floats Reps/Duration 10x Comments mod UE support hip ab/ad Details gentle w/cross over front and back Reps/Duration 10x Comments mod UE support heel toe raise Reps/Duration 10x Lower Extremity Stretches Single knee to chest bilat Details at wall Body Position Standing Water Level Chest Level Equipment Small Noodle Reps/Duration 2x30' HS, ITB, hip add Equipment Small Noodle Reps/Duration 2x Comments Unable to feel ITB stretch [place] Activities [place] Activities Bicycle [place] Hip Abduction/Adduction Other Activities deep water hang 10 min w/#2.5, [place] foam float and black neck float. Equipment [place] foam float Duration 10 min Comments minimal to no UE support PT-OP-T Assessment and Plan Start: 09/16/18 11:20 Freq: Status: Active Protocol: Document 01/05/19 09:06 SAK (Rec: 01/05/19 09:53 SAK [id number]) Physical Therapy Assessment Goals Strength Impairment weakness core and hips Short Term Goal (STG) Initiate therapeutic exercise program (goal met) STG Duration 2 wks Care Home Goal (LTG) Improve strength to at least 4 +/5 throughout trunk and LE's (goal progress) LTG Duration 3 months Pain Impairment Pain level 7/10 Short Term Goal (STG) Decrease pain to no greater than 5/10 (goal progress, reports no pain when in pool for aquatic therapy) STG Duration 6 wks [facility] Home Goal (LTG) Decrease pain to no greater than 3/10 LTG Duration 3 months Gait Impairment Requires use of walker, unable to walk community distances Short Term Goal (STG) Able to ambulate with straight cane short community distances (goal progress) STG Duration 6 wks Care Home Goal (LTG) Patient able to ambulate without device for community distances. LTG Duration 3 months Activity tolerance Impairment Oswestery disability index score 52% [facility] Home Goal (LTG) Decrease Oswestry score to no greater than 30% (goal progress) LTG Duration 3 months Assessment Summary Assessment Gait antalgic right LE. Patient demonstrates poor memory and kinesthetic awareness of gluteal activation but with cues able to achieve more upright posture with gluteal activation especially with slow step-ups. Decrease in LBP and radicular symptoms with manual traction. Signs and symptoms indicative of L5/ S1 nerve involvement vs hamstring injury. Physical Therapy Plan Frequency and Duration Frequency of Treatment 3x/Week Duration of Treatment 3 months Plan of Care Start Date 11/12/18 Plan of Care End Date 02/10/19 Therapeutic Interventions Therapeutic Interventions Aquatic Therapy Home Exercise Program Manual Therapy Neuromuscular Re-education Patient/Caregiver Education Self-Care/Home Management Soft Tissue Mobilization Taping Therapeutic Activities Therapeutic Exercises Modalities Cold Pack/Ice Massage Electric Stimulation Hot Packs Ultrasound Next Visit Focus/Plan Next Note Type Treatment Note Next Visit Plan Next session aquatic PT; emphasis on postural alignment / stabilization and gluteal activation and strengthening. Step-ups all directions in pool.
--- NOTE | 2019-01-10 14:50 | PT.OTN ---
Current Diagnoses Radiculopathy, lumbar region (01/05/19) Physical Therapy Treatment Note PT-OP-A Visit Information Start: 09/16/18 11:20 Freq: Status: Active Protocol: Document 01/10/19 10:15 CLB (Rec: 01/10/19 14:50 CLB [id number]) Out-Patient Physical Therapy Visit Information Visit Information Visit Type Aquatic Treatment Note Visit Start Time 10:15 Visit Stop Time 11:00 Total Visit Minutes 45 Visit Number 26 Number of WET WASH ASSEMBLER Visits 1 PT-OP-B Current Condition Start: 09/16/18 11:20 Freq: Status: Active Protocol: Document 09/16/18 11:20 SAK (Rec: 09/16/18 11:40 SAK [id number]) Current Condition History of Current Condition Onset Date 07/20/18 Current Complaints bilateral LBP, right great toe numbness History of Current Condition L4-5 medial facetectomy and foraminotomy; reports it was supposed to be day surgery, but had possible WI at end of surgery (controversy over whether had WI vs reaction to medication) but reports hypertensive when coming out of anesthetic. Has not been doing well, pain worse than prior to surgery. States now physician stating he needs right MICHELLE; has seen surgeon but nothing scheduled yet. States he is uncertain about hip surgery both due to feeling most of his pain from back and concern over his recent response to surgery. Walks better with walker; states he limps without use of walker. Some numbness right great toe. Pain worse with standing and walking, minimal with sitting. Takes 2-3 Hydrocodone per day; 1 at a time. Unable to go for walks or golf as previoiusly Prior Treatments and Tests Using heat at home, trying to walk Future Testing and Treatments Planned Sees pain clinic next week to set up appointment for nerve block. Treatment Goals Patient/Caregiver Goals Decrease pain and resume prior activities. 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 PT-OP-C Subjective Start: 09/16/18 11:20 Freq: Status: Active Protocol: Document 01/10/19 10:15 CLB (Rec: 01/10/19 14:50 CLB [id number]) OP-PT Subjective Patient Comments Patient Comments Pt having increase in pain since land therapy on 01/05/19, pt states his low back area hurts even when sleeping which is usually relieved when in supine. PT-OP-F Manual Assessment Start: 09/16/18 11:20 Freq: Status: Active Protocol: Document 09/16/18 11:20 SAK (Rec: 09/22/18 16:40 SAK [id number]) Manual Assessments Soft Tissue Assessment Soft Tissue Mobility Assessment Increased soft tissue tightness bilateral lumbar paraspinals PT-OP-G Mobility & Gait Start: 09/16/18 11:20 Freq: Status: Active Protocol: Document 12/22/18 09:01 SAK (Rec: 12/22/18 15:49 SAK [id number]) OP Gait Assessment Gait Distance (Feet) 30 Assistive Devices Assistive Device None Gait Deviations General Gait Pattern Decreased Stride Length Decreased Feet Clearance Flexed Trunk Wide Based Gait Factors Limiting Gait Function Factors Limiting Gait Function Decreased Activity Tolerance Pain Comments Gait Comments Pain increases rapidly requiring seated break PT-OP-H Neuro Start: 09/16/18 11:20 Freq: Status: Active Protocol: Document 09/16/18 11:20 SAK (Rec: 09/22/18 16:40 SAK [id number]) Sensation Evaluation Comments Summary Comments decreased to LT right great toe PT-OP-J Posture/Palpation/Skin Start: 09/16/18 11:20 Freq: Status: Active Protocol: Document 09/16/18 11:20 SAK (Rec: 09/22/18 16:40 SAK [id number]) Posture Evaluation Position Standing Head/C-Spine Posture Forward Head T-Spine Posture Increased Kyphosis L-Spine Posture Decreased Lordosis Weight Distribution Decreased Wt.Bear on (R) Hip Posture (L) Externally Rotated (R) Externally Rotated Skin Assessment Incisional Assessment Incision Appearance/Comments Well-healed with no signs or symptoms of infaction PT-OP-K Range of Motion Start: 09/16/18 11:20 Freq: Status: Active Protocol: Document 09/16/18 11:20 SAK (Rec: 09/22/18 16:40 [facility] [id number]) Lumbar Spine Range of Motion Lumbar Spine Active Degrees Flexion 80 Rotation Left 15 Rotation Right 15 Lateral Flexion Left 30 Lateral Flexion Right 30 Comments -5 deg ext with c/o increased pain Hip Goniometric Range of Motion Hip Measured in Degrees Left Flexion w/Knee Flexed 105 Straight Leg Raise 45 Extension 0 Internal Rotation 25 External Rotation 70 Right Flexion w/Knee Flexed 110 Straight Leg Raise 45 Extension 0 Internal Rotation 15 External Rotation 20 PT-OP-M Strength Start: 09/16/18 11:20 Freq: Status: Active Protocol: Document 09/16/18 11:20 [facility] (Rec: 09/22/18 16:40 [facility] [id number]) Trunk Strength Trunk Manual Muscle Testing Core Stabilization Poor core stabilization, difficulty activating TrA and multifidi. Knee Strength Knee Manual Muscle Testing Left Flexion (S2) 5 Normal Extension (L3) 5 Normal Right Flexion (S2) 5 Normal Extension (L3) 5 Normal Ankle/Foot Strength Ankle and Foot Manual Muscle Testing Left Dorsiflexion (L4) 4+ Good+ Plantarflexion (S1) 4+ Good+ Right Dorsiflexion (L4) 4+ Good+ Plantarflexion (S1) 4+ Good+ Toe Strength Toe Manual Muscle Testing Left Great Toe Extension 4+ Good+ Right Great Toe Extension 4- Good- PT-OP-Q Treatments Start: 09/16/18 11:20 Freq: Status: Active Protocol: Document 01/05/19 09:06 [facility] (Rec: 01/05/19 09:53 [facility] [id number]) Cardio Equipment Recumbent Stepper (Sci-Fit) Duration (Minutes) 10 Resistance 2.5 Seat Position 15 Therapeutic Exercises Sitting Exercises HS stretch Reps/Minutes 2x Standing Exercises step-ups Reps/Minutes 10x ea Comments emphasis on gluteal activation , hip extension for upright posture Gait Training Gait Activity no device Treatment Focus postural alignment and core stab, gluteal activation Comments Patient with increased forward bend with inc distance/time Manual Therapy Treatment Manual Traction Lumbar Body Position Hooklying Reps/Duration 10' Comments strap and pillow at patient's upper thighs PT-OP-R Modalities Start: 09/16/18 11:20 Freq: Status: Active Protocol: Document 01/05/19 09:06 [facility] (Rec: 01/05/19 09:53 [facility] [id number]) Electric Stimulation Electric Stimulation Interferential Current (IFC) Body Location bilateral lumbar paraspinals Duration (Minutes) 15 Target/Sweep Sweep High/Low High Patient Position Sitting Combined With Heat/Cold Hot Pack Ultrasound Therapy Treatment Back Treatment Duration (minutes) 8 Patient Position Sidelying Coupling Medium Ultrasound Gel Frequency Setting (mHz) 1 Mode Setting Continuous Duty Cycle 100% Intensity Setting (w/cm2) 1.4 Comments bilateral lumbar paraspinals PT-OP-S Aquatic Treatment Start: 09/16/18 11:20 Freq: Status: Active Protocol: Document 01/10/19 10:15 CLB (Rec: 01/10/19 14:50 CLB [id number]) Aquatics Treatment Pool Entry/Exit Pool Entry/Exit Method Stairs Assistance Independent Water Walking [place] December Water Level Chest Level Comments straight and slight abduction backward Water Level Chest Level Level of Assistance Standby Assistance december Water Level Chest Level Level of Assistance Standby Assistance Lower Extremity Stretches Single knee to chest bilat Details at wall Body Position Standing Water Level Chest Level Equipment Small Noodle Reps/Duration 2x30' [place] Activities [place] Activities Bicycle Other Activities deep water hang 10 min w/#2.5, [place] foam float and black neck float. Equipment [place] foam float Duration 20 minutes Comments minimal to no UE support PT-OP-T Assessment and Plan Start: 09/16/18 11:20 Freq: Status: Active Protocol: Document 01/10/19 10:15 CLB (Rec: 01/10/19 14:50 CLB [id number]) Physical Therapy Assessment Goals Strength Impairment weakness core and hips Short Term Goal (STG) Initiate therapeutic exercise program (goal met) STG Duration 2 wks Residential Goal (LTG) Improve strength to at least 4 +/5 throughout trunk and LE's (goal progress) LTG Duration 3 months Pain Impairment Pain level 7/10 Short Term Goal (STG) Decrease pain to no greater than 5/10 (goal progress, reports no pain when in pool for aquatic therapy) STG Duration 6 wks Dry Cleaning Manager Goal (LTG) Decrease pain to no greater than 3/10 LTG Duration 3 months Gait Impairment Requires use of walker, unable to walk community distances Short Term Goal (STG) Able to ambulate with straight cane short community distances (goal progress) STG Duration 6 wks Residential Goal (LTG) Patient able to ambulate without device for community distances. LTG Duration 3 months Activity tolerance Impairment Oswestery disability index score 52% Dry Cleaning Manager Goal (LTG) Decrease Oswestry score to no greater than 30% (goal progress) LTG Duration 3 months Assessment Summary Assessment Pt with increase in pain of low back. Pt came to aquatic therapy but wanted to take it easy. Pt had increase pain with water walking and needed to take a rest break. Pt felt decrease in pain with deep water hanging. Physical Therapy Plan Frequency and Duration Frequency of Treatment 3x/Week Duration of Treatment 3 months Plan of Care Start Date 11/12/18 Plan of Care End Date 02/10/19 Next Visit Focus/Plan Next Visit Plan Next session aquatic PT; emphasis on postural alignment / stabilization and gluteal activation and strengthening. Step-ups all directions in pool as tolerated.
--- NOTE | 2019-01-21 15:37 | PT.OTN ---
Current Diagnoses Radiculopathy, lumbar region (01/19/19) Physical Therapy Treatment Note PT-OP-A Visit Information Start: 09/16/18 11:20 Freq: Status: Active Protocol: Document 01/19/19 15:26 SAK (Rec: 01/21/19 15:35 [facility] [id number]) Out-Patient Physical Therapy Visit Information Visit Information Visit Type Treatment Note Visit Start Time 09:00 Visit Stop Time 10:00 Total Visit Minutes 60 Visit Number 27 Number of TECHNICAL TRAINING COORDINATOR Visits 0 PT-OP-B Current Condition Start: 09/16/18 11:20 Freq: Status: Active Protocol: Document 09/16/18 11:20 [facility] (Rec: 09/16/18 11:40 [facility] [id number]) Current Condition History of Current Condition Onset Date 07/20/18 Current Complaints bilateral LBP, right great toe numbness History of Current Condition L4-5 medial facetectomy and foraminotomy; reports it was supposed to be day surgery, but had possible CT at end of surgery (controversy over whether had CT vs reaction to medication) but reports hypertensive when coming out of anesthetic. Has not been doing well, pain worse than prior to surgery. States now physician stating he needs right MICHELLE; has seen surgeon but nothing scheduled yet. States he is uncertain about hip surgery both due to feeling most of his pain from back and concern over his recent response to surgery. Walks better with walker; states he limps without use of walker. Some numbness right great toe. Pain worse with standing and walking, minimal with sitting. Takes 2-3 Hydrocodone per day; 1 at a time. Unable to go for walks or golf as previoiusly Prior Treatments and Tests Using heat at home, trying to walk Future Testing and Treatments Planned Sees pain clinic next week to set up appointment for nerve block. Treatment Goals Patient/Caregiver Goals Decrease pain and resume prior activities. 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 PT-OP-C Subjective Start: 09/16/18 11:20 Freq: Status: Active Protocol: Document 01/19/19 15:26 SAK (Rec: 01/21/19 15:35 SAK [id number]) OP-PT Subjective Patient Comments Patient Comments Continues to have more pain, doesn't feel up to doing much exercise. Miscommunication regarding injection; due to patient having barium for another test was unable to have spinal injection. Now has to wait 2 wks. PT-OP-F Manual Assessment Start: 09/16/18 11:20 Freq: Status: Active Protocol: Document 09/16/18 11:20 SAK (Rec: 09/22/18 16:40 SAK [id number]) Manual Assessments Soft Tissue Assessment Soft Tissue Mobility Assessment Increased soft tissue tightness bilateral lumbar paraspinals PT-OP-G Mobility & Gait Start: 09/16/18 11:20 Freq: Status: Active Protocol: Document 12/22/18 09:01 SAK (Rec: 12/22/18 15:49 SAK [id number]) OP Gait Assessment Gait Distance (Feet) 30 Assistive Devices Assistive Device None Gait Deviations General Gait Pattern Decreased Stride Length Decreased Feet Clearance Flexed Trunk Wide Based Gait Factors Limiting Gait Function Factors Limiting Gait Function Decreased Activity Tolerance Pain Comments Gait Comments Pain increases rapidly requiring seated break PT-OP-H Neuro Start: 09/16/18 11:20 Freq: Status: Active Protocol: Document 09/16/18 11:20 SAK (Rec: 09/22/18 16:40 SAK [id number]) Sensation Evaluation Comments Summary Comments decreased to LT right great toe PT-OP-J Posture/Palpation/Skin Start: 09/16/18 11:20 Freq: Status: Active Protocol: Document 09/16/18 11:20 SAK (Rec: 09/22/18 16:40 SAK [id number]) Posture Evaluation Position Standing Head/C-Spine Posture Forward Head T-Spine Posture Increased Kyphosis L-Spine Posture Decreased Lordosis Weight Distribution Decreased Wt.Bear on (R) Hip Posture (L) Externally Rotated (R) Externally Rotated Skin Assessment Incisional Assessment Incision Appearance/Comments Well-healed with no signs or symptoms of infaction PT-OP-K Range of Motion Start: 09/16/18 11:20 Freq: Status: Active Protocol: Document 09/16/18 11:20 [facility] (Rec: 09/22/18 16:40 [facility] [id number]) Lumbar Spine Range of Motion Lumbar Spine Active Degrees Flexion 80 Rotation Left 15 Rotation Right 15 Lateral Flexion Left 30 Lateral Flexion Right 30 Comments -5 deg ext with c/o increased pain Hip Goniometric Range of Motion Hip Measured in Degrees Left Flexion w/Knee Flexed 105 Straight Leg Raise 45 Extension 0 Internal Rotation 25 External Rotation 70 Right Flexion w/Knee Flexed 110 Straight Leg Raise 45 Extension 0 Internal Rotation 15 External Rotation 20 PT-OP-M Strength Start: 09/16/18 11:20 Freq: Status: Active Protocol: Document 09/16/18 11:20 [facility] (Rec: 09/22/18 16:40 [facility] [id number]) Trunk Strength Trunk Manual Muscle Testing Core Stabilization Poor core stabilization, difficulty activating TrA and multifidi. Knee Strength Knee Manual Muscle Testing Left Flexion (S2) 5 Normal Extension (L3) 5 Normal Right Flexion (S2) 5 Normal Extension (L3) 5 Normal Ankle/Foot Strength Ankle and Foot Manual Muscle Testing Left Dorsiflexion (L4) 4+ Good+ Plantarflexion (S1) 4+ Good+ Right Dorsiflexion (L4) 4+ Good+ Plantarflexion (S1) 4+ Good+ Toe Strength Toe Manual Muscle Testing Left Great Toe Extension 4+ Good+ Right Great Toe Extension 4- Good- PT-OP-Q Treatments Start: 09/16/18 11:20 Freq: Status: Active Protocol: Document 01/19/19 15:26 [facility] (Rec: 01/21/19 15:35 [facility] [id number]) Cardio Equipment Recumbent Stepper (Sci-Fit) Duration (Minutes) 10 Resistance 2.0 Seat Position 15 Therapeutic Exercises Standing Exercises shallow squat Reps/Minutes 10x sidestepping Comments UE support Gait Training Gait Activity no device Treatment Focus postural alignment and core stab, gluteal activation Comments Patient with increased forward bend with inc distance/time Manual Therapy Treatment Soft Tissue Mobilization lumbar paraspinals, piriformis Mobilization Type Myofascial Release Rolling Strumming Intensity/Depth Moderate Body Position right sidelying PT-OP-R Modalities Start: 09/16/18 11:20 Freq: Status: Active Protocol: Document 01/19/19 15:26 [facility] (Rec: 01/21/19 15:35 [facility] [id number]) Electric Stimulation Electric Stimulation Interferential Current (IFC) Body Location bilateral lumbar paraspinals Duration (Minutes) 15 Target/Sweep Sweep High/Low High Patient Position Sitting Combined With Heat/Cold Hot Pack Ultrasound Therapy Treatment Back Treatment Duration (minutes) 8 Patient Position Sidelying Coupling Medium Ultrasound Gel Frequency Setting (mHz) 1 Mode Setting Continuous Duty Cycle 100% Intensity Setting (w/cm2) 1.4 Comments bilateral lumbar paraspinals PT-OP-S Aquatic Treatment Start: 09/16/18 11:20 Freq: Status: Active Protocol: Document 01/10/19 10:15 CLB (Rec: 01/10/19 14:50 CLB [id number]) Aquatics Treatment Pool Entry/Exit Pool Entry/Exit Method Stairs Assistance Independent Water Walking [place] December Water Level Chest Level Comments straight and slight abduction backward Water Level Chest Level Level of Assistance Standby Assistance december Water Level Chest Level Level of Assistance Standby Assistance Lower Extremity Stretches Single knee to chest bilat Details at wall Body Position Standing Water Level Chest Level Equipment Small Noodle Reps/Duration 2x30' [place] Activities [place] Activities Bicycle Other Activities deep water hang 10 min w/#2.5, [place] foam float and black neck float. Equipment [place] foam float Duration 20 minutes Comments minimal to no UE support PT-OP-T Assessment and Plan Start: 09/16/18 11:20 Freq: Status: Active Protocol: Document 01/19/19 09:00 SAK (Rec: 01/21/19 15:35 SAK [id number]) Physical Therapy Assessment Goals Strength Impairment weakness core and hips Short Term Goal (STG) Initiate therapeutic exercise program (goal met) STG Duration 2 wks Dynamic Balancer Set Up Worker Goal (LTG) Improve strength to at least 4 +/5 throughout trunk and LE's (goal progress) LTG Duration 3 months Pain Impairment Pain level 7/10 Short Term Goal (STG) Decrease pain to no greater than 5/10 (goal progress, reports no pain when in pool for aquatic therapy) STG Duration 6 wks Assisted Goal (LTG) Decrease pain to no greater than 3/10 LTG Duration 3 months Gait Impairment Requires use of walker, unable to walk community distances Short Term Goal (STG) Able to ambulate with straight cane short community distances (goal progress) STG Duration 6 wks Dynamic Balancer Set Up Worker Goal (LTG) Patient able to ambulate without device for community distances. LTG Duration 3 months Activity tolerance Impairment Oswestery disability index score 52% Dynamic Balancer Set Up Worker Goal (LTG) Decrease Oswestry score to no greater than 30% (goal progress) LTG Duration 3 months Assessment Summary Assessment Patient in higher level of pain, was unable to receive injection due to recent ingestion of barium Physical Therapy Plan Frequency and Duration Frequency of Treatment 3x/Week Duration of Treatment 3 months Plan of Care Start Date 11/12/18 Plan of Care End Date 02/10/19 Therapeutic Interventions Therapeutic Interventions Aquatic Therapy Home Exercise Program Manual Therapy Neuromuscular Re-education Patient/Caregiver Education Self-Care/Home Management Soft Tissue Mobilization Taping Therapeutic Activities Therapeutic Exercises Modalities Cold Pack/Ice Massage Electric Stimulation Hot Packs Ultrasound Next Visit Focus/Plan Next Note Type Treatment Note Next Visit Plan Evaluate response to today's treatment, gentle ther ex progression, consider nerve glides, further manual work
--- NOTE | 2019-01-26 10:03 | PT.OTN ---
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 Has not been doing well, pain worse than prior to surgery. States now physician stating he needs right MICHELLE; has seen surgeon but nothing scheduled yet. States he is uncertain about hip surgery both due to feeling most of his pain from back and concern over his recent response to surgery. Walks better with walker; states he limps without use of walker. Some numbness right great toe. Pain worse with standing and walking, minimal with sitting. Takes 2-3 Hydrocodone per day; 1 at a time. Unable to go for walks or golf as previoiusly Prior Treatments and Tests Using heat at home, trying to walk Future Testing and Treatments Planned Sees pain clinic next week to set up appointment for nerve block. Treatment Goals Patient/Caregiver Goals Decrease pain and resume prior activities. 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 PT-OP-C Subjective Start: 09/16/18 11:20 Freq: Status: Active Protocol: Document 01/27/19 09:48 SAK (Rec: 01/27/19 10:03 SAK [id number]) OP-PT Subjective Patient Comments Patient Comments Pain still minimal to none while sitting but has noticed increase lateral thigh right, occasional electrical-type pain anterior right thigh. 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 PT-OP-F Manual Assessment Start: 09/16/18 11:20 Freq: Status: Active Protocol: Document 09/16/18 11:20 SAK (Rec: 09/22/18 16:40 [facility] [id number]) Manual Assessments Soft Tissue Assessment Soft Tissue Mobility Assessment Increased soft tissue tightness bilateral lumbar paraspinals PT-OP-G Mobility & Gait Start: 09/16/18 11:20 Freq: Status: Active Protocol: Document 12/22/18 09:01 SAK (Rec: 12/22/18 15:49 SAK [id number]) OP Gait Assessment Gait Distance (Feet) 30 Assistive Devices Assistive Device None Gait Deviations General Gait Pattern Decreased Stride Length Decreased Feet Clearance Flexed Trunk Wide Based Gait Factors Limiting Gait Function Factors Limiting Gait Function Decreased Activity Tolerance Pain Comments Gait Comments Pain increases rapidly requiring seated break PT-OP-H Neuro Start: 09/16/18 11:20 Freq: Status: Active Protocol: Document 09/16/18 11:20 SAK (Rec: 09/22/18 16:40 [facility] [id number]) Sensation Evaluation Comments Summary Comments decreased to LT right great toe PT-OP-J Posture/Palpation/Skin Start: 09/16/18 11:20 Freq: Status: Active Protocol: Document 09/16/18 11:20 SAK (Rec: 09/22/18 16:40 SAK [id number]) Posture Evaluation Position Standing Head/C-Spine Posture Forward Head T-Spine Posture Increased Kyphosis L-Spine Posture Decreased Lordosis Weight Distribution Decreased Wt.Bear on (R) Hip Posture (L) Externally Rotated (R) Externally Rotated Skin Assessment Incisional Assessment Incision Appearance/Comments Well-healed with no signs or symptoms of infaction PT-OP-K Range of Motion Start: 09/16/18 11:20 Freq: Status: Active Protocol: Document 09/16/18 11:20 [facility] (Rec: 09/22/18 16:40 [facility] [id number]) Lumbar Spine Range of Motion Lumbar Spine Active Degrees Flexion 80 Rotation Left 15 Rotation Right 15 Lateral Flexion Left 30 Lateral Flexion Right 30 Comments -5 deg ext with c/o increased pain Hip Goniometric Range of Motion Hip Measured in Degrees Left Flexion w/Knee Flexed 105 Straight Leg Raise 45 Extension 0 Internal Rotation 25 External Rotation 70 Right Flexion w/Knee Flexed 110 Straight Leg Raise 45 Extension 0 Internal Rotation 15 External Rotation 20 PT-OP-M Strength Start: 09/16/18 11:20 Freq: Status: Active Protocol: Document 09/16/18 11:20 [facility] (Rec: 09/22/18 16:40 [facility] [id number]) Trunk Strength Trunk Manual Muscle Testing Core Stabilization Poor core stabilization, difficulty activating TrA and multifidi. Knee Strength Knee Manual Muscle Testing Left Flexion (S2) 5 Normal Extension (L3) 5 Normal Right Flexion (S2) 5 Normal Extension (L3) 5 Normal Ankle/Foot Strength Ankle and Foot Manual Muscle Testing Left Dorsiflexion (L4) 4+ Good+ Plantarflexion (S1) 4+ Good+ Right Dorsiflexion (L4) 4+ Good+ Plantarflexion (S1) 4+ Good+ Toe Strength Toe Manual Muscle Testing Left Great Toe Extension 4+ Good+ Right Great Toe Extension 4- Good- PT-OP-Q Treatments Start: 09/16/18 11:20 Freq: Status: Active Protocol: Document 01/27/19 09:48 [facility] (Rec: 01/27/19 10:03 [facility] [id number]) Cardio Equipment Recumbent Stepper (Sci-Fit) Duration (Minutes) 10 Resistance 2.0 Seat Position 15 Gym Equipment Shuttle Recovery Bilateral Squats Resistance 75 Shuttle Recovery Platform Stable Reps/Time 10x2 Therapeutic Exercises Supine Exercises IT band stretch Reps/Minutes 2x Comments gentle, added to HEP Manual Therapy Treatment Soft Tissue Mobilization right quadricep Mobilization Type Myofascial Release Rolling Strumming Intensity/Depth Moderate IT band Body Location right ITB Mobilization Type Myofascial Release Rolling Strumming Intensity/Depth Moderate Self-Care/Home Management Treatment Activities Self-Care/Home Management Activities Instruction in neutral sitting position at desk to for back and hip health, pain prevention PT-OP-R Modalities Start: 09/16/18 11:20 Freq: Status: Active Protocol: Document 01/27/19 09:48 RUSTY (Rec: 01/27/19 10:03 [facility] [id number]) Electric Stimulation Electric Stimulation Interferential Current (IFC) Body Location bilateral lumbar paraspinals Duration (Minutes) 15 Target/Sweep Sweep High/Low High Patient Position Sitting Combined With Heat/Cold Hot Pack Comments also with MH to IT band right Ultrasound Therapy Treatment right IT band Treatment Duration (minutes) 8 Patient Position Sidelying Frequency Setting (mHz) 1 Mode Setting Continuous Duty Cycle 100% Intensity Setting (w/cm2) 1.4 Comments pillow between legs. PT-OP-S Aquatic Treatment Start: 09/16/18 11:20 Freq: Status: Active Protocol: Document 01/10/19 10:15 CLB (Rec: 01/10/19 14:50 CLB [id number]) Aquatics Treatment Pool Entry/Exit Pool Entry/Exit Method Stairs Assistance Independent Water Walking [place] December Water Level Chest Level Comments straight and slight abduction backward Water Level Chest Level Level of Assistance Standby Assistance december Water Level Chest Level Level of Assistance Standby Assistance Lower Extremity Stretches Single knee to chest bilat Details at wall Body Position Standing Water Level Chest Level Equipment Small Noodle Reps/Duration 2x30' [place] Activities [place] Activities Bicycle Other Activities deep water hang 10 min w/#2.5, [place] foam float and black neck float. Equipment [place] foam float Duration 20 minutes Comments minimal to no UE support PT-OP-T Assessment and Plan Start: 09/16/18 11:20 Freq: Status: Active Protocol: Document 01/27/19 09:48 [facility] (Rec: 01/27/19 10:03 [facility] [id number]) Physical Therapy Assessment Goals Strength Impairment weakness core and hips Short Term Goal (STG) Initiate therapeutic exercise program (goal met) STG Duration 2 wks Field Inspector Goal (LTG) Improve strength to at least 4 +/5 throughout trunk and LE's (goal progress) LTG Duration 3 months Pain Impairment Pain level 7/10 Short Term Goal (STG) Decrease pain to no greater than 5/10 (goal progress, reports no pain when in pool for aquatic therapy) STG Duration 6 wks Group Home Goal (LTG) Decrease pain to no greater than 3/10 LTG Duration 3 months Gait Impairment Requires use of walker, unable to walk community distances Short Term Goal (STG) Able to ambulate with straight cane short community distances (goal progress) STG Duration 6 wks Group Home Goal (LTG) Patient able to ambulate without device for community distances. LTG Duration 3 months Activity tolerance Impairment Oswestery disability index score 52% Field Inspector Goal (LTG) Decrease Oswestry score to no greater than 30% (goal progress) LTG Duration 3 months Assessment Summary Assessment Feel mod tight IT band on right may be contributing to patient increase in pain and radicular symptoms. His high stress level as well as increased time at desk and his habitual positioning of his body are likely contributory. He demonstrated good understanding of need to decrease time at desk as well as pay attention to his positioning. Physical Therapy Plan Frequency and Duration Frequency of Treatment 3x/Week Duration of Treatment 3 months Plan of Care Start Date 11/12/18 Plan of Care End Date 02/10/19 Therapeutic Interventions Therapeutic Interventions Aquatic Therapy Home Exercise Program Manual Therapy Neuromuscular Re-education Patient/Caregiver Education Self-Care/Home Management Soft Tissue Mobilization Taping Therapeutic Activities Therapeutic Exercises Modalities Cold Pack/Ice Massage Electric Stimulation Hot Packs Ultrasound Next Visit Focus/Plan Next Note Type Treatment Note Next Visit Plan Further treatment of IT band, though in different position due to patient reported discomfort in sidelying (after treatment complete reports he was not comfortable in that position.)
--- NOTE | 2019-02-09 16:27 | PT.OPPOC ---
Current Diagnoses Radiculopathy, lumbar region (02/09/19) Provider Visit Care Team Role Provider Type Chris Fallon MD Family Provider Non-Staff Specialty: Urology Address: [address], [place], [address] Email: Carolina Dang DO Attending Provider Physician Primary Care Provider Specialty: Family Practice Address: [address] [place] [address] [address], [place], [address] Email: [email or web address] Plan Of Care PT-OP-T Assessment and Plan Start: 09/16/18 11:20 Freq: Status: Active Protocol: Document 02/09/19 14:30 SAK (Rec: 02/12/19 16:26 SAK [id number]) Physical Therapy Assessment Goals Strength Impairment weakness core and hips Short Term Goal (STG) Initiate therapeutic exercise program (goal met) STG Duration GOAL MET Member Services Coordinator Goal (LTG) Improve strength to at least 4 +/5 throughout trunk and LE's (goal progress) 02/08/19: low activity and exercise tolerance at this time. Some progress but not achieved. LTG Duration 05/11/19 Pain Impairment Pain level 7/10 Skilled Nursing Goal (LTG) Decrease pain to no greater than 3/10 02/09/19: some goal progress previously, but recently has noted an increase in pain especially down into right LE with injection not helpful last week. LTG Duration 05/11/19 Gait Impairment Requires use of walker, unable to walk community distances Member Services Coordinator Goal (LTG) Patient able to ambulate without device for community distances. 02/09/19: able to for household distances and has tried some community distances but reports increased pain without walker for community LTG Duration 05/11/19 Activity tolerance Impairment Oswestry disability index score 52% Member Services Coordinator Goal (LTG) Decrease Oswestry score to no greater than 30% 02/09/19: score increased LTG Duration 05/11/19 Assessment Summary Assessment Patient has noted a recent increase in symptoms with no known cause which includes radicular symptoms into right LE. A recent injection was not helpful. He will be consulting further with his physicians and today we discussed placing PT on hold until he does further follow- up with physicians. He will continue with HEP and especially with gentle aquatic exercise which he has found most helpful. Feel hip muscle tightness as well as patient' s habitual posture is contributing to his pain. Will considere resuming PT pending recommendations and other interventions by physicians. Physical Therapy Plan Frequency and Duration Frequency of Treatment 3x/Week Duration of Treatment 3 months Plan of Care Start Date 02/09/19 Plan of Care End Date 05/11/19 Therapeutic Interventions Therapeutic Interventions Aquatic Therapy Home Exercise Program Manual Therapy Neuromuscular Re-education Patient/Caregiver Education Self-Care/Home Management Soft Tissue Mobilization Taping Therapeutic Activities Therapeutic Exercises Modalities Cold Pack/Ice Massage Electric Stimulation Hot Packs Ultrasound Next Visit Focus/Plan Next Note Type Treatment Note Next Visit Plan PT on hold at this time pending patient follow-up with physicians and possible further interventions. Pt. to contact PT with any further physician recommendations. Plan of Care Dates Plan of Care Start Date 02/09/19 Plan of Care End Date 05/11/19 Please Sign and Return: I have reviewed this Plan of Care and certify that the skilled therapy services above are required to meet the patient?s needs. Physician Signature Date Printed Name and Credentials Clinical Instructor Signature Printed Name and Credentials
--- NOTE | 2019-02-09 16:27 | PT.OTRE ---
Current Diagnoses Radiculopathy, lumbar region (02/09/19) Past Medical History (Last Reviewed 09/29/18 @ 10:37 by Carolina Dang DO) Thoracic aortic aneurysm (Acute) BPH (benign prostatic hyperplasia) (Chronic) Cervical spine disease (Chronic) Chronic neck pain (Chronic) Coronary artery disease (Chronic) GERD (gastroesophageal reflux disease) (Chronic) Hypertension (Chronic) Atrial fibrillation (Resolved ~1993) Bladder cancer (Resolved) Myocardial infarction (Resolved 1978) Surgical History (Last Reviewed 09/29/18 @ 10:37 by Carolina Dang DO) History of abdominal aortic aneurysm repair (Resolved ~2006) Hx of cervical discectomy (Resolved) Hx of coronary artery bypass graft (Resolved ~1980) Hx of laminectomy (Resolved ~04/2016) Hx of transurethral resection of prostate (Resolved) S/P carotid endarterectomy (Resolved ~1990) Provider Visit Care Team Role Provider Type Chris Fallon MD Family Provider Non-Staff Specialty: Urology Address: [address] [place] [address] [address], [address] Email: Carolina Dang DO Attending Provider Physician Primary Care Provider Specialty: Family Practice Address: [address] [place] [address] [address], [place], [address] Email: [email or web address] Physical Therapy Re-Evaluation PT-OP-A Visit Information Start: 09/16/18 11:20 Freq: Status: Active Protocol: Document 02/09/19 14:30 [facility] (Rec: 02/12/19 16:26 [facility] [id number]) Out-Patient Physical Therapy Visit Information Visit Information Visit Type Re-Evaluation Visit Start Time 14:30 Visit Stop Time 15:23 Total Visit Minutes 53 Visit Number 29 Number of SENIOR VICE PRESIDENT & GENERAL COUNSEL Visits 0 PT-OP-B Current Condition Start: 09/16/18 11:20 Freq: Status: Active Protocol: Document 09/16/18 11:20 [facility] (Rec: 09/16/18 11:40 [facility] [id number]) Current Condition History of Current Condition Onset Date 07/20/18 Current Complaints bilateral LBP, right great toe numbness History of Current Condition L4-5 medial facetectomy and foraminotomy; reports it was supposed to be day surgery, but had possible MD at end of surgery (controversy over whether had MD vs reaction to medication) but reports hypertensive when coming out of anesthetic. Has not been doing well, pain worse than prior to surgery. States now physician stating he needs right MICHELLE; has seen surgeon but nothing scheduled yet. States he is uncertain about hip surgery both due to feeling most of his pain from back and concern over his recent response to surgery. Walks better with walker; states he limps without use of walker. Some numbness right great toe. Pain worse with standing and walking, minimal with sitting. Takes 2-3 Hydrocodone per day; 1 at a time. Unable to go for walks or golf as previoiusly Prior Treatments and Tests Using heat at home, trying to walk Future Testing and Treatments Planned Sees pain clinic next week to set up appointment for nerve block. Treatment Goals Patient/Caregiver Goals Decrease pain and resume prior activities. 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 PT-OP-C Subjective Start: 09/16/18 11:20 Freq: Status: Active Protocol: Document 02/09/19 14:30 [facility] (Rec: 02/12/19 16:26 [facility] [id number]) OP-PT Subjective Patient Comments Patient Comments Had injection but reports no significant change. REports some decrease in pain after last session. Worst pain into right LE and across bilateral lumbar spine. 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 Agreeable to hold on PT until further consults with his physicians. PT-OP-F Manual Assessment Start: 09/16/18 11:20 Freq: Status: Active Protocol: Document 09/16/18 11:20 [facility] (Rec: 09/22/18 16:40 [facility] [id number]) Manual Assessments Soft Tissue Assessment Soft Tissue Mobility Assessment Increased soft tissue tightness bilateral lumbar paraspinals PT-OP-G Mobility & Gait Start: 09/16/18 11:20 Freq: Status: Active Protocol: Document 12/22/18 09:01 [facility] (Rec: 12/22/18 15:49 [facility] [id number]) OP Gait Assessment Gait Distance (Feet) 30 Assistive Devices Assistive Device None Gait Deviations General Gait Pattern Decreased Stride Length Decreased Feet Clearance Flexed Trunk Wide Based Gait Factors Limiting Gait Function Factors Limiting Gait Function Decreased Activity Tolerance Pain Comments Gait Comments Pain increases rapidly requiring seated break PT-OP-H Neuro Start: 09/16/18 11:20 Freq: Status: Active Protocol: Document 09/16/18 11:20 [facility] (Rec: 09/22/18 16:40 [facility] [id number]) Sensation Evaluation Comments Summary Comments decreased to LT right great toe PT-OP-J Posture/Palpation/Skin Start: 09/16/18 11:20 Freq: Status: Active Protocol: Document 09/16/18 11:20 [facility] (Rec: 09/22/18 16:40 [facility] [id number]) Posture Evaluation Position Standing Head/C-Spine Posture Forward Head T-Spine Posture Increased Kyphosis L-Spine Posture Decreased Lordosis Weight Distribution Decreased Wt.Bear on (R) Hip Posture (L) Externally Rotated (R) Externally Rotated Skin Assessment Incisional Assessment Incision Appearance/Comments Well-healed with no signs or symptoms of infaction PT-OP-K Range of Motion Start: 09/16/18 11:20 Freq: Status: Active Protocol: Document 09/16/18 11:20 [facility] (Rec: 09/22/18 16:40 [facility] [id number]) Lumbar Spine Range of Motion Lumbar Spine Active Degrees Flexion 80 Rotation Left 15 Rotation Right 15 Lateral Flexion Left 30 Lateral Flexion Right 30 Comments -5 deg ext with c/o increased pain Hip Goniometric Range of Motion Hip Measured in Degrees Left Flexion w/Knee Flexed 105 Straight Leg Raise 45 Extension 0 Internal Rotation 25 External Rotation 70 Right Flexion w/Knee Flexed 110 Straight Leg Raise 45 Extension 0 Internal Rotation 15 External Rotation 20 PT-OP-M Strength Start: 09/16/18 11:20 Freq: Status: Active Protocol: Document 09/16/18 11:20 [facility] (Rec: 09/22/18 16:40 [facility] [id number]) Trunk Strength Trunk Manual Muscle Testing Core Stabilization Poor core stabilization, difficulty activating TrA and multifidi. Knee Strength Knee Manual Muscle Testing Left Flexion (S2) 5 Normal Extension (L3) 5 Normal Right Flexion (S2) 5 Normal Extension (L3) 5 Normal Ankle/Foot Strength Ankle and Foot Manual Muscle Testing Left Dorsiflexion (L4) 4+ Good+ Plantarflexion (S1) 4+ Good+ Right Dorsiflexion (L4) 4+ Good+ Plantarflexion (S1) 4+ Good+ Toe Strength Toe Manual Muscle Testing Left Great Toe Extension 4+ Good+ Right Great Toe Extension 4- Good- PT-OP-Q Treatments Start: 09/16/18 11:20 Freq: Status: Active Protocol: Document 02/09/19 14:30 [facility] (Rec: 02/12/19 16:26 [facility] [id number]) Therapeutic Exercises Supine Exercises IT band stretch Reps/Minutes 2x Comments gentle, Gait Training Gait Activity no device Treatment Focus postural alignment and core stab, gluteal activation Manual Therapy Treatment Soft Tissue Mobilization right quadricep Mobilization Type Myofascial Release Rolling Strumming Intensity/Depth Moderate IT band Body Location right ITB Mobilization Type Myofascial Release Rolling Strumming Intensity/Depth Moderate lumbar paraspinals, piriformis Mobilization Type Myofascial Release Rolling Strumming Intensity/Depth Moderate Body Position right sidelying PT-OP-R Modalities Start: 09/16/18 11:20 Freq: Status: Active Protocol: Document 02/09/19 14:30 [facility] (Rec: 02/12/19 16:26 [facility] [id number]) Electric Stimulation Electric Stimulation Interferential Current (IFC) Body Location bilateral lumbar paraspinals Duration (Minutes) 15 Target/Sweep Sweep High/Low High Patient Position Sitting Combined With Heat/Cold Hot Pack Comments also with MH to IT band right Ultrasound Therapy Treatment right IT band Treatment Duration (minutes) 8 Patient Position Sidelying Frequency Setting (mHz) 1 Mode Setting Continuous Duty Cycle 100% Intensity Setting (w/cm2) 1.4 Comments pillow between legs. PT-OP-T Assessment and Plan Start: 09/16/18 11:20 Freq: Status: Active Protocol: Document 02/09/19 14:30 [facility] (Rec: 02/12/19 16:26 [facility] [id number]) Physical Therapy Assessment Goals Strength Impairment weakness core and hips Short Term Goal (STG) Initiate therapeutic exercise program (goal met) STG Duration GOAL MET Data Analyst Goal (LTG) Improve strength to at least 4 +/5 throughout trunk and LE's (goal progress) 02/08/19: low activity and exercise tolerance at this time. Some progress but not achieved. LTG Duration 05/11/19 Pain Impairment Pain level 7/ Data Analyst Goal (LTG) Decrease pain to no greater than 3/10 02/09/19: some goal progress previously, but recently has noted an increase in pain especially down into right LE with injection not helpful last week. LTG Duration 05/11/19 Gait Impairment Requires use of walker, unable to walk community distances Half-Way Goal (LTG) Patient able to ambulate without device for community distances. 02/09/19: able to for household distances and has tried some community distances but reports increased pain without walker for community LTG Duration 05/11/19 Activity tolerance Impairment Oswestry disability index score 52% Data Analyst Goal (LTG) Decrease Oswestry score to no greater than 30% 02/09/19: score increased LTG Duration 05/11/19 Assessment Summary Assessment Patient has noted a recent increase in symptoms with no known cause which includes radicular symptoms into right LE. A recent injection was not helpful. He will be consulting further with his physicians and today we discussed placing PT on hold until he does further follow- up with physicians. He will continue with HEP and especially with gentle aquatic exercise which he has found most helpful. Feel hip muscle tightness as well as patient' s habitual posture is contributing to his pain. Will considere resuming PT pending recommendations and other interventions by physicians. Physical Therapy Plan Frequency and Duration Frequency of Treatment 3x/Week Duration of Treatment 3 months Plan of Care Start Date 02/09/19 Plan of Care End Date 05/11/19 Therapeutic Interventions Therapeutic Interventions Aquatic Therapy Home Exercise Program Manual Therapy Neuromuscular Re-education Patient/Caregiver Education Self-Care/Home Management Soft Tissue Mobilization Taping Therapeutic Activities Therapeutic Exercises Modalities Cold Pack/Ice Massage Electric Stimulation Hot Packs Ultrasound Next Visit Focus/Plan Next Note Type Treatment Note Next Visit Plan PT on hold at this time pending patient follow-up with physicians and possible further interventions. Pt. to contact PT with any further physician recommendations.
--- NOTE | 2019-04-25 08:13 | PT.OPDS ---
Current Diagnoses Radiculopathy, lumbar region (02/09/19) Provider Visit Care Team Role Provider Type Chris Fallon MD Family Provider Non-Staff Specialty: Urology Address: [address] [facility] [address], [place], [address] Email: Carolina Dang DO Attending Provider Physician Primary Care Provider Specialty: Family Practice Address: [address] [place] [address] [address], [place], [address] Email: [email or web address] Visit Number Visit Number 29 Discharge Summary PT-OP-B Current Condition Start: 09/16/18 11:20 Freq: Status: Active Protocol: Document 09/16/18 11:20 RUSTY (Rec: 09/16/18 11:40 SAK [id number]) Current Condition History of Current Condition Onset Date 07/20/18 Current Complaints bilateral LBP, right great toe numbness History of Current Condition L4-5 medial facetectomy and foraminotomy; reports it was supposed to be day surgery, but had possible OR at end of surgery (controversy over whether had OR vs reaction to medication) but reports hypertensive when coming out of anesthetic. Has not been doing well, pain worse than prior to surgery. States now physician stating he needs right MICHELLE; has seen surgeon but nothing scheduled yet. States he is uncertain about hip surgery both due to feeling most of his pain from back and concern over his recent response to surgery. Walks better with walker; states he limps without use of walker. Some numbness right great toe. Pain worse with standing and walking, minimal with sitting. Takes 2-3 Hydrocodone per day; 1 at a time. Unable to go for walks or golf as previoiusly Prior Treatments and Tests Using heat at home, trying to walk Future Testing and Treatments Planned Sees pain clinic next week to set up appointment for nerve block. Treatment Goals Patient/Caregiver Goals Decrease pain and resume prior activities. 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 PT-OP-C Subjective Start: 09/16/18 11:20 Freq: Status: Active Protocol: Document 02/09/19 14:30 SAK (Rec: 02/12/19 16:26 [facility] [id number]) OP-PT Subjective Patient Comments Patient Comments Had injection but reports no significant change. REports some decrease in pain after last session. Worst pain into right LE and across bilateral lumbar spine. Will be following up with painter [facility]. Agreeable to hold on PT until further consults with his physicians. PT-OP-F Manual Assessment Start: 09/16/18 11:20 Freq: Status: Active Protocol: Document 09/16/18 11:20 SAK (Rec: 09/22/18 16:40 [facility] [id number]) Manual Assessments Soft Tissue Assessment Soft Tissue Mobility Assessment Increased soft tissue tightness bilateral lumbar paraspinals PT-OP-G Mobility & Gait Start: 09/16/18 11:20 Freq: Status: Active Protocol: Document 12/22/18 09:01 SAK (Rec: 12/22/18 15:49 [facility] [id number]) OP Gait Assessment Gait Distance (Feet) 30 Assistive Devices Assistive Device None Gait Deviations General Gait Pattern Decreased Stride Length Decreased Feet Clearance Flexed Trunk Wide Based Gait Factors Limiting Gait Function Factors Limiting Gait Function Decreased Activity Tolerance Pain Comments Gait Comments Pain increases rapidly requiring seated break PT-OP-H Neuro Start: 09/16/18 11:20 Freq: Status: Active Protocol: Document 09/16/18 11:20 SAK (Rec: 09/22/18 16:40 [facility] [id number]) Sensation Evaluation Comments Summary Comments decreased to LT right great toe PT-OP-J Posture/Palpation/Skin Start: 09/16/18 11:20 Freq: Status: Active Protocol: Document 09/16/18 11:20 SAK (Rec: 09/22/18 16:40 [facility] [id number]) Posture Evaluation Position Standing Head/C-Spine Posture Forward Head T-Spine Posture Increased Kyphosis L-Spine Posture Decreased Lordosis Weight Distribution Decreased Wt.Bear on (R) Hip Posture (L) Externally Rotated (R) Externally Rotated Skin Assessment Incisional Assessment Incision Appearance/Comments Well-healed with no signs or symptoms of infaction PT-OP-K Range of Motion Start: 09/16/18 11:20 Freq: Status: Active Protocol: Document 09/16/18 11:20 [facility] (Rec: 09/22/18 16:40 [facility] [id number]) Lumbar Spine Range of Motion Lumbar Spine Active Degrees Flexion 80 Rotation Left 15 Rotation Right 15 Lateral Flexion Left 30 Lateral Flexion Right 30 Comments -5 deg ext with c/o increased pain Hip Goniometric Range of Motion Hip Left Flexion w/Knee Flexed 105 Straight Leg Raise 45 Extension 0 Internal Rotation 25 External Rotation 70 Right Flexion w/Knee Flexed 110 Straight Leg Raise 45 Extension 0 Internal Rotation 15 External Rotation 20 PT-OP-M Strength Start: 09/16/18 11:20 Freq: Status: Active Protocol: Document 09/16/18 11:20 [facility] (Rec: 09/22/18 16:40 [facility] [id number]) Trunk Strength Trunk Manual Muscle Testing Core Stabilization Poor core stabilization, difficulty activating TrA and multifidi. Knee Strength Knee Manual Muscle Testing Left Flexion (S2) 5 Normal Extension (L3) 5 Normal Right Flexion (S2) 5 Normal Extension (L3) 5 Normal Ankle/Foot Strength Ankle and Foot Manual Muscle Testing Left Dorsiflexion (L4) 4+ Good+ Plantarflexion (S1) 4+ Good+ Right Dorsiflexion (L4) 4+ Good+ Plantarflexion (S1) 4+ Good+ Toe Strength Toe Manual Muscle Testing Left Great Toe Extension 4+ Good+ Right Great Toe Extension 4- Good- PT-OP-T Assessment and Plan Start: 09/16/18 11:20 Freq: Status: Active Protocol: Document 04/25/19 08:11 [facility] (Rec: 04/25/19 08:13 [facility] [id number]) Physical Therapy Plan Discharge Physical Therapy Discharge Reasons No Longer Attending PT Discharge Comments No discharge assessment able to be performed.
== END 2019-04-26 14:23 ==
LOC: PHYS 14:30
PROVIDERS: Family Provider Transplant Surgery; PCP Family Medicine; Visit Provider Family Medicine
DX: M54.16 Radiculopathy, lumbar region (principal)
CPT/HCPCS: 97014; 97035; 97110; 97113; 97140; 97162; 97535; G0283

== ENCOUNTER 2019-03-02 22:40 | Emergency (ER) | payer MEDICARE, OTHER, SELFPAY ==
[2019-03-02 22:50] VITALS: BP 161/84; PULSE 71; RESP 16; TEMP 36.8; O2SAT 97; BMI 25.7
--- NOTE | 2019-03-02 22:57 | DI.RAD.S_ITS ---
PROCEDURE: XR CHEST 1V INDICATIONS: chest pain TECHNIQUE: One view of the chest was acquired. COMPARISON: [facility], CHEST 1 VIEW, 04/05/2014, 20:17. [facility], CHEST 1 VIEW, 12/29/2016, 18:44. FINDINGS: Surgical changes and devices: Lower cervical spine fusion. Lungs and pleura: Chronic interstitial prominence. Blunting of costophrenic angles may be caused by pleural thickening/scarring or trace pleural effusion. No focal consolidation. No pneumothorax. Mediastinum: Mediastinal contours appear normal. Heart size is normal. Bones and chest wall: No suspicious bony lesions. Overlying soft tissues appear unremarkable. IMPRESSION: No acute cardiopulmonary disease. Dictated by: Saran Branham M.D. on 03/03/2019 at 8:53 Approved by: Saran Branham M.D. on 03/03/2019 at 8:55
[2019-03-02 22:58] VITALS: TEMP 36.8
[2019-03-02 23:06] LABS: Add Manual Diff / Slide Review NO; Basophils Absolute Auto 0 /uL (0-100); Basophils Percent Auto 0.1 % (0-2); Eosinophils Absolute Auto 0 /uL (0-450); Hematocrit 35.3 % (41-53); Hemoglobin 12.2 g/dL (13.5-17.5); Lymphocytes Absolute Auto 500 /uL (1100-4500); Lymphocytes Percent Auto 11.1 % (25-40); Mean Corpuscular HGB Conc 34.5 % (30-36); Mean Corpuscular Hemoglobin 34.4 PG (26-34); Mean Corpuscular Volume 99.7 fL (80-100); Monocytes Absolute Auto 400 /uL (0-900); Monocytes Percent Auto 9.6 % (3-14); Neutrophils Absolute Auto 3600 /uL (1500-7000); Neutrophils Percent Auto 79.2 % (50-75); Platelet Count 155 X10^3/uL (150-400); Red Blood Cell Count 3.54 X10^6/uL (4.5-5.9); Red Cell Distribution Width 13.7 % (11.6-14.8); White Blood Cell Count 4.5 X10^3/uL (4.5-11.0)
[2019-03-02 23:10] LABS: INR 1.1 (0.9-1.3); Prothrombin Time 13.2 SECONDS (10.1-12.7)
[2019-03-02 23:12] LABS: PTT Partial Thromboplastin Tim 32 SECONDS (26.4-36.2)
[2019-03-02 23:14] LABS: Alanine Aminotransferase 17 IU/L (21-72); Albumin 4.4 g/dL (3.5-5.0); Albumin Globulin Ratio 1.4 (1.0-2.8); Alkaline Phosphatase 86 U/L (38-126); Aspartate Aminotransferase 24 IU/L (17-59); BUN Creatinine Ratio 23.3 (6-22); Bilirubin Total 0.7 mg/dL (0.2-1.3); Blood Urea Nitrogen 21 mg/dL (9-20); Calcium 9.8 mg/dL (8.4-10.2); Carbon Dioxide 23 mmol/L (22-32); Chloride 105 mmol/L (98-107); Creatine Kinase 75 U/L (55-170); Estimated Glomerular Filt Rate > 60.0 mL/min (>60); Globulin 3.1 g/dL (1.7-4.1); Glucose 134 mg/dL (80-110); HEMOLYSIS < 15 (0-50); Lipase 93 U/L (23-300); Sodium 138 mmol/L (137-145); Total Protein 7.5 g/dL (6.3-8.2)
[2019-03-02 23:26] LABS: Troponin I < 0.012 ng/mL (0.01-0.034)
[2019-03-02 23:30] VITALS: BP 136/74; PULSE 68; RESP 17; O2SAT 96
[2019-03-03 00:30] VITALS: PULSE 67; RESP 16; O2SAT 98
[2019-03-03 00:59] VITALS: BP 134/83; PULSE 71; RESP 13; O2SAT 98
--- NOTE | 2019-03-03 01:03 | ED.CHESTPAIN ---
HPI - Chest Pain General Chief Complaint: Chest Pain Stated Complaint: UNSTABLE BLOOD PRESSURE, CHEST TIGHTNESS Time Seen by Provider: 03/03/19 01:03 Source: patient Mode of arrival: ambulatory Limitations: no limitations History of Present Illness HPI narrative: The patient has known CAD, he is undergoing CABG x2, as well as a repair of abdominal aortic aneurysm. He currently takes medications for hypertension. He has had recent chest pressure, he did not describe chest pain. He has no dyspnea. He has no recent illness. With his antihypertensive medications he defines as normal blood pressure is 108 systolic. When lying on his right side earlier he was not feeling well he checked his blood pressure. His systolic blood pressure was 99. When up and about he checked his blood pressure again. His next blood pressure was 180 systolic. Another blood pressure was 170 systolic. He is having no headache, visual changes, chest pain or dyspnea with the symptoms. His blood pressures improved upon arrival. He also tells me he has had insomnia for 42 hours. He has not felt ill. He does not normally suffer anxiety or insomnia, he has no obvious reason for insomnia. He has been eating and drinking well. He is asymptomatic upon his arrival here. Related Data Home Medications Medication Instructions Recorded Confirmed aspirin 81 mg PO QDAY #0 08/28/12 02/14/19 docusate sodium 250 mg PO Q DAY #0 08/28/12 02/14/19 lisinopril 5 mg PO QDAY #0 03/25/17 02/14/19 metoprolol tartrate [Lopressor] 25 mg PO BID #0 03/25/17 02/14/19 atorvastatin 40 mg tablet 40 mg PO DAILY 07/29/18 02/14/19 Previous Rx's Medication Instructions Recorded meclizine 0 PO SEE INSTRUCTIONS PRN #100 tab 07/11/16 [Compound Cream] 1 gm TOPICAL TID PRN #60 gm 09/02/17 Disabled Parking Pass #1 ea 09/29/18 omeprazole 40 mg capsule,delayed 40 mg PO DAILY #90 cap 10/07/18 release tizanidine 2 mg tablet 2 mg PO TIDP PRN #270 tab 12/08/18 hydrocodone 5 mg-acetaminophen 325 1 tab PO TID #90 tab 02/14/19 mg tablet ibuprofen 600 mg tablet 600 mg PO Q8H PRN #90 tab 02/15/19 Allergies Allergy/AdvReac Type Severity Reaction Status Date / Time propoxyphene [From Darvon] Allergy Verified 09/29/18 09:57 Review of Systems Review of Systems ROS Unobtainable: All systems reviewed & are unremarkable except as noted in HPI and below Constitutional Denies chills, Denies fever(s), Denies lethargy and Denies weakness ENT Ears, Nose, Mouth, and Throat: Denies change in voice, Denies neck pain and Denies sore throat Cardiovascular Denies chest pain, Denies irregular heart rhythm, Denies dyspnea, Denies dyspnea on exertion and Denies orthopnea Comments: Complaints of vague chest pressure. Respiratory Denies cough, Denies dyspnea, Denies dyspnea on exertion and Denies wheezing Gastrointestinal Gastrointestinal: Denies abdominal pain, Denies change in bowel habits, Denies diarrhea, Denies nausea and Denies vomiting Musculoskeletal Denies neck pain and Reports other (No edema.) Neurologic Denies confusion and Denies weakness Psychiatric Denies anxiety, Denies confusion, Denies depression, Denies homicidal ideation and Denies suicidal ideation Allergic/Immunologic Denies wheezing [facility] Medical History Thoracic aortic aneurysm (Acute) BPH (benign prostatic hyperplasia) (Chronic) Cervical spine disease (Chronic) Chronic neck pain (Chronic) Coronary artery disease (Chronic) GERD (gastroesophageal reflux disease) (Chronic) Hypertension (Chronic) Atrial fibrillation (Resolved ~1993) Bladder cancer (Resolved) Myocardial infarction (Resolved 1978) Surgical History History of abdominal aortic aneurysm repair (Resolved ~2006) Hx of cervical discectomy (Resolved) Hx of coronary artery bypass graft (Resolved ~1980) Hx of laminectomy (Resolved ~04/2016) Hx of transurethral resection of prostate (Resolved) S/P carotid endarterectomy (Resolved ~1990) Family History Father No problems noted. Mother No problems noted. Social History Smoking Status: Former smoker Tobacco: How many years used: 19 second hand exposure: No alcohol intake: never substance use type: does not use Family History Father No problems noted. Mother No problems noted. Social History Smoking Status: Former smoker Tobacco: How many years used: 19 second hand exposure: No alcohol intake: never substance use type: does not use Exam Initial Vital Signs Initial Vital Signs: Vital Signs Temperature 98.2 F 03/02/19 22:50 Pulse Rate 71 03/02/19 22:50 Respiratory Rate 16 03/02/19 22:50 Blood Pressure 161/84 H 03/02/19 22:50 Pulse Oximetry 97 03/02/19 22:50 Const General: cooperative and well developed Nutritional Appearance: well nourished Orientation: alert, awake, oriented x3 and not confused [facility] Head: normocephalic and atraumatic Mouth: oral mucosae normal and moist mucous membranes Teeth and gingiva: dentition normal Throat: tonsils normal and uvula midline Eyes Conjunctivae: conjunctivae normal Neck Neck: No JVD Chest Chest: normal inspection of the chest Resp Effort & Inspection: normal respiratory effort, able to speak in complete sentences, no respiratory distress and no use of accessory muscles Auscultation: clear to auscultation bilaterally, no rales, no rhonchi and no wheezes Cardio Rate: regular rate Rhythm: regular rhythm Heart Sounds: no click, no gallops, no murmurs and no rubs Pulses: normal peripheral pulses GI Inspection: non-distended Palpation: soft, no hepatosplenomegaly, No guarding, No pulsatile mass and No tender Auscultation: normal bowel sounds Back/Spine/Pelvis Back: No CVA tenderness Skin General: no rashes or lesions noted and No petechiae Neuro General: alert, oriented x3, gait normal and no focal motor deficits Speech: speech normal Extrem General: full ROM, no pedal edema and no calf tenderness Psych Appearance: well kempt Mental Status: mental status grossly normal Attitude: cooperative Thought Content: normal and suicidality Judgment: judgment good Course Course Narrative: The patient has been asymptomatic since arrival. He has a remote history of AFib, no problem for over 20 years. He wanted confirmation did not AFib. Although her monitor shows normal sinus rhythm. Orders Ordered: ED Orders 03/02/19 22:57 XR chest 1V Stat EKG-12 Lead Stat 03/02/19 23:00 Complete Blood Count AUTO DIFF Stat Comprehensive Metabolic Panel Stat Lipase Stat Partial Thromboplastin Time Stat Prothrombin Time INR Stat Troponin & CK Cardiac Panel Stat Discontinued Medications Lorazepam (Ativan) 0.5 mg PO NOW ONE Stop: 03/03/19 01:42 Vital Signs - 8 hr 03/02/19 22:50 03/02/19 22:58 03/02/19 23:30 Temperature 98.2 F 98.2 F Pulse Rate 71 68 Respiratory Rate 16 17 Blood Pressure 161/84 H Blood Pressure [Right Arm] 136/74 Pulse Oximetry 97 96 03/03/19 00:30 03/03/19 00:59 Temperature Pulse Rate 67 71 Respiratory Rate 16 13 Blood Pressure Blood Pressure [Right Arm] 134/83 Pulse Oximetry 98 98 MDM - Chest Pain Lab Data Result diagrams: 03/02/19 23:00 03/02/19 23:00 Lab Results 03/02/19 03/02/19 03/02/19 Range/Units 23:00 23:00 23:00 WBC 4.5 (4.5-11.0) X10^3/uL RBC 3.54 L (4.5-5.9) X10^6/uL Hgb 12.2 L (13.5-17.5) g/dL Hct 35.3 L (41-53) % MCV 99.7 (80-100) fL MCH 34.4 H (26-34) PG MCHC 34.5 (30-36) % RDW 13.7 (11.6-14.8) % Plt Count 155 (150-400) X10^3/uL Neut % (Auto) 79.2 H (50-75) % Lymph % (Auto) 11.1 L (25-40) % Mclean % (Auto) 9.6 (3-14) % Eos % (Auto) 0.0 L (2-4) % Baso % (Auto) 0.1 (0-2) % Neut # (Auto) 3600 (4579-5043) /uL Lymph # (Auto) 500 L (8642-5675) /uL Mclean # (Auto) 400 (0-900) /uL Eos # (Auto) 0 (0-450) /uL Baso # (Auto) 0 (0-100) /uL PT 13.2 H (10.1-12.7) SECONDS INR 1.1 (0.9-1.3) APTT 32 (26.4-36.2) SECONDS Sodium 138 (137-145) mmol/L Potassium 4.0 (3.4-5.1) mmol/L Chloride 105 (98-107) mmol/L Carbon Dioxide 23 (22-32) mmol/L BUN 21 H (9-20) mg/dL Creatinine 0.90 (0.66-1.25) mg/dL Estimated GFR > 60.0 (>60) mL/min BUN/Creatinine Ratio 23.3 H (6-22) Glucose 134 H (80-110) mg/dL Calcium 9.8 (8.4-10.2) mg/dL Total Bilirubin 0.7 (0.2-1.3) mg/dL AST 24 (17-59) IU/L ALT 17 L (21-72) IU/L Alkaline Phosphatase 86 (38-126) U/L Total Creatine Kinase 75 (55-170) U/L CK-MB (CK-2) TNP CK-MB (CK-2) Rel Index TNP Troponin I < 0.012 (0.01-0.034) ng/mL Total Protein 7.5 (6.3-8.2) g/dL Albumin 4.4 (3.5-5.0) g/dL Globulin 3.1 (1.7-4.1) g/dL Albumin/Globulin Ratio 1.4 (1.0-2.8) Lipase 93 (23-300) U/L Imaging Data Chest x-ray: My impression: No acute findings ECG Data Attestation: I personally reviewed and interpreted this ECG as follows: (Normal sinus rhythm rate 73 beats per minute. LA. IVCD. Nonspecific ST T wave changes. Motion artifact. No acute ST T wave changes. No ectopy.) Discharge Plan Departure Patient Disposition: Home Clinical Impression: Chest pressure Insomnia Qualifiers: Insomnia type: unspecified Qualified Code(s): G47.00 - Insomnia, unspecified Instructions: Insomnia, DI for Atypical Chest Pain Activity Restrictions/Additional Instructions: I am going to give you a medication, Ativan. Take this medication to help her sleep when she you arrive at home. If you have ongoing, more chronic issues with insomnia, follow up with her doctor. You discuss the issue with chest pressure. There is no current evidence of an acute cardiac problem and the testing we have done tonight. 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. Your blood pressure has been variable, a little low than high. Record your blood pressure 2 to 3 times daily and make a record of these reads. Have that information with you when you see your doctor. Return here as needed. Prescriptions: No Action atorvastatin 40 mg tablet 40 mg PO DAILY RF: 0 Disabled [address]ing Pass Qty: 1 RF: 0 aspirin 81 MG tablet,chewable 81 mg PO QDAY Qty: 0 RF: 0 docusate sodium 250 MG capsule 250 mg PO Q DAY Qty: 0 RF: 0 meclizine 25 MG tablet PO SEE INSTRUCTIONS PRNQty: 100 RF: 0 metoprolol tartrate [Lopressor] 50 MG tablet 25 mg PO BID Qty: 0 RF: 0 lisinopril 5 MG tablet 5 mg PO QDAY Qty: 0 RF: 0 [Compound Cream] 1 gm Topical TID PRNQty: 60 RF: 6 omeprazole 40 mg capsule,delayed release(DR/EC) 40 mg PO DAILY Qty: 90 RF: 0 tizanidine 2 mg tablet 2 mg PO TIDP PRN (Reason: muscle spasticity) Qty: 270 RF: 1 ibuprofen 600 mg tablet 600 mg PO Q8H PRN (Reason: pain) Qty: 90 RF: 0 hydrocodone-acetaminophen 5-325 mg tablet 1 tab PO TID Qty: 90 RF: 0 Referrals: Carolina Dang DO [Primary Care Provider] -
[2019-03-03] MEDS: LORazepam 0.5 MG TABLET PO (01:35)
== END 2019-03-03 01:35 | disposition home or self-care (01) ==
PROVIDERS: Emergency Provider Emergency Medicine; Family Provider Transplant Surgery; PCP Family Medicine
DX: R07.89 Other chest pain (principal); G47.00 Insomnia, unspecified; Z79.82 Long term (current) use of aspirin; Z95.1 Presence of aortocoronary bypass graft
CPT/HCPCS: 71045; 80053; 82550; 82553; 83690; 84484; 85025; 85610; 85730; 93005; 93010; 93041; 99283; 99285

== ENCOUNTER → 2019-05-10 11:32 | Outpatient (CLI) | payer MEDICARE, OTHER, SELFPAY ==
--- NOTE | 2019-05-10 11:37 | DI.RAD.S_ITS ---
PROCEDURE: XR CHEST 2V INDICATIONS: Rib pain TECHNIQUE: 2 views of the chest were acquired. COMPARISON: [facility], , CHEST 1 VIEW, 12/29/2016, 18:44. [facility], , XR CHEST 1V, 03/02/2019, 23:21. FINDINGS: Surgical changes and devices: Sternotomy and CABG. Lungs and pleura: Linear densities bilaterally are most likely discoid atelectasis or pleural parenchymal scars. No pleural effusions or pneumothorax. Mediastinum: Mediastinal contours are normal. Heart size is normal. Bones and chest wall: No suspicious bony abnormalities. Soft tissues appear unremarkable. IMPRESSION: Bilateral pleural parenchymal scars. No acute cardiopulmonary disease. Dictated by: Saran Branham M.D. on 05/10/2019 at 14:59 Approved by: Saran Branham M.D. on 05/10/2019 at 15:01
== END ==
PROVIDERS: PCP Family Medicine; Visit Provider Family Medicine
DX: R07.81 Pleurodynia (principal)
CPT/HCPCS: 71046

== ENCOUNTER → 2019-07-04 14:08 | Outpatient (CLI) | payer MEDICARE, OTHER, SELFPAY ==
[2019-07-04 15:39] LABS: Ferritin 47.7 ng/mL (17.9-464)
[2019-07-04 16:09] LABS: Folate 7.8 ng/mL (2.76-20.0); Vitamin B12 269 pg/mL (239-931)
== END ==
PROVIDERS: PCP Family Medicine; Visit Provider Podiatrist
DX: G60.0 Hereditary motor and sensory neuropathy (principal); M12.9 Arthropathy, unspecified
CPT/HCPCS: 36415; 82607; 82728; 82746

== ENCOUNTER → 2019-07-21 11:54 | Outpatient (CLI) | payer MEDICARE, OTHER, SELFPAY ==
--- NOTE | 2019-07-21 | DI.MRI.S_ITS ---
PROCEDURE: MR LUMBAR SPINE WO/W CON INDICATIONS: Radiculopathy, lumbar region TECHNIQUE: Noncontrast sagittal T1 spin echo and T2 fast spin echo, sagittal STIR, axial T1 and T2 fast spin echo through the lumbar spine. In cases with scoliosis, additional coronal T2 fast spin echo may be performed. After the administration of contrast, sagittal and axial T1 spin echo with fat saturation through the lumbar spine. COMPARISON: [facility], MR, L-SPINE W&WO CONTRAST, 07/18/2016, 11:13. [facility], MR, MR LUMBAR SPINE WO CON, 03/04/2018, 10:43. [facility], MR, L-SPINE WITHOUT CONTRAST, 11/08/2015, 9:50. FINDINGS: Image quality: Excellent. Alignment and curvature: There is minimal retrolisthesis at L2-L3, L3-L4, and L4-L5. Marrow: Marrow is of normal overall signal. No acute vertebral body compression fractures. No suspicious marrow enhancement. Stable anterior wedge deformity is seen L2, with 25% loss of height anteriorly. No posterior displacement fracture fragments can be seen. Spinal cord: Conus medullaris terminates at the L1 level. Visualized spinal cord demonstrates normal signal, without suspicious enhancement. Paraspinous soft tissues: No paravertebral masses or abnormal enhancement. A 3.5 cm renal cyst can be seen inferiorly. A mild abdominal aortic aneurysm is seen, which measures 3.2 cm AP. T12-L1: Normal appearance. L1-L2: The disc height is well-preserved. Loss of disc signal is seen at this level. Bridging endplate osteophytes are seen. No significant neural foraminal or central canal narrowing can be seen. When comparison is made with the prior examination, these findings are similar. L2-L3: Postoperative changes are seen, with removal of portions of posterior elements at L3. Moderate loss of disc height is seen. Loss of disc signal is seen. Endplate irregularity is seen. Reactive marrow endplate changes are seen, which are hyperintense on T1-weighted and T2-weighted imaging and most consistent with fatty metaplasia (Modic type II changes). Moderate disc bulge is seen, which is eccentric to the right. There is at least moderate bilateral neural foraminal narrowing seen. Moderate central canal narrowing is seen. No significant change from the prior. L3-L4: The disc height is well-preserved. Loss of disc signal is seen at this level. Moderate loss of disc height is seen. Loss of disc signal is seen. Mild facet joint hypertrophy is seen. There is moderate right-sided and mild left-sided neural foraminal narrowing seen. Moderate central canal narrowing is seen. These imaging findings have mildly progressed compared to the prior study. L4-L5: Moderate loss of disc height is seen. Loss of disc signal is seen. Reactive marrow endplate changes are seen, which are hyperintense on T1-weighted and T2-weighted imaging and most consistent with fatty metaplasia (Modic type II changes). Moderate to prominent disc bulge is seen, which is eccentric to the right. Moderate facet hypertrophy is seen. There is at least moderate bilateral neural foraminal narrowing seen. Moderate central canal narrowing is seen. No significant change from the prior. L5-S1: Moderate disc bulge is seen, which is eccentric to the right. There is moderate to prominent right-sided and moderate left-sided neural foraminal narrowing seen. There is at least moderate bilateral neural foraminal narrowing seen, left worse than right. There is a degree of compression seen upon the exiting nerve roots. [id number] central canal narrowing is seen. When comparison is made with the prior examination, these findings are similar. IMPRESSION: Multiple levels of lumbar spine degenerative change are seen, which are similar to 2018, although mildly progressed at the L3-L4 level compared to the prior MRI. Postoperative change at L3 noted. Incidental note is made of: Right renal cyst Mild abdominal aortic aneurysm Dictated by: Luis Gonzales M.D. on 07/21/2019 at 14:03 Approved by: Luis Gonzales M.D. on 07/21/2019 at 14:11
== END ==
PROVIDERS: Family Provider Family Medicine; PCP Family Medicine; Visit Provider Orthopaedic Surgery
DX: M54.16 Radiculopathy, lumbar region (principal); M47.816 Spondylosis without myelopathy or radiculopathy, lumbar region; I71.4 Abdominal aortic aneurysm, without rupture; N28.1 Cyst of kidney, acquired
CPT/HCPCS: 72158; A9579

== ENCOUNTER 2019-08-23 21:15 | Emergency (ER) | payer MEDICARE, OTHER, SELFPAY ==
[2019-08-23 21:22] VITALS: BP 163/77; PULSE 75; RESP 21; TEMP 36.9; O2SAT 99; BMI 25.0
--- NOTE | 2019-08-23 21:25 | ED_ITS ---
HPI - General Adult General Chief complaint: Dizziness Stated complaint: Dizzy, nausea, low liz Time Seen by Provider: 08/23/19 21:24 Source: patient Mode of arrival: Wheelchair Limitations: no limitations History of Present Illness HPI narrative: 78-year-old male. Known coronary artery disease. Known chronic neck pain. At baseline has some difficulty with breathing and dyspnea on exertion. States that today he went out to his car to put a new license plate on his car. He states that after that he felt very fatigued. States that he was very short of breath going up the stairs however this potentially is not new. He states that he has some days that are worse than others any feels like today is 1 of the days where his symptoms are bad. States he went up and laid down. Had some lightheadedness. Took his blood pressure with a systolic of 81 diastolic of 40. He states he normally runs systolic in the 110s to 130s. He denies taking any extra her blood pressure medications today. [facility]. He also states that he feels like he has urinary tract infection. He does have a history of bladder cancer. Has had dysuria for the past couple days. Contacted his urologist who wanted him to get a urinalysis tomorrow. Related Data Home Medications Medication Instructions Recorded Confirmed aspirin 81 mg PO QDAY #0 08/28/12 08/10/19 docusate sodium 250 mg PO Q DAY #0 08/28/12 08/10/19 lisinopril 5 mg PO QDAY #0 03/25/17 08/10/19 metoprolol tartrate [Lopressor] 25 mg PO BID #0 03/25/17 08/10/19 atorvastatin 40 mg tablet 40 mg PO DAILY 07/29/18 08/10/19 nitroglycerin 0.4 mg sublingual 0.4 mg SL Q5-15M PRN 03/16/19 08/10/19 tablet gabapentin 300 mg capsule 300 mg PO BEDTIME 08/10/19 08/10/19 Previous Rx's Medication Instructions Recorded meclizine 0 PO SEE INSTRUCTIONS PRN #100 tab 07/11/16 Disabled [address]ing Pass #1 ea 09/29/18 tizanidine 2 mg tablet See Rx Instructions .ROUTE 06/29/19 .COMPLEX #270 tablet hydrocodone 5 mg-acetaminophen 325 1 tab PO TID #90 tab 08/05/19 mg tablet CMP KCCDGT 12/1/2/3/6/2% See Rx Instructions .ROUTE 08/10/19 .COMPLEX #200 each NS ibuprofen 600 mg tablet See Rx Instructions .ROUTE 08/10/19 .COMPLEX #90 tablet ciprofloxacin HCl 250 mg PO BID 3 Days #6 tab 08/23/19 Allergies Allergy/AdvReac Type Severity Reaction Status Date / Time propoxyphene [From Darvon] Allergy Verified 08/23/19 21:22 Review of Systems Constitutional Constitutional: Reports fatigue and Denies fever(s) Cardiovascular Cardiovascular: Denies chest pain, Reports dyspnea and Reports dyspnea on exertion Respiratory Respiratory: Reports dyspnea and Reports dyspnea on exertion Gastrointestinal Gastrointestinal: Denies abdominal pain, Denies nausea and Denies vomiting Genitourinary Genitourinary: Reports dysuria Musculoskeletal Musculoskeletal: Denies myalgias, Denies arthralgias and Reports muscle weakness Integumentary/Breasts Skin/Breast: Denies rash Neurologic Neurologic: Denies behavioral changes Psychiatric Psychiatric: Denies behavioral changes Endocrine Endocrine: Reports fatigue Hematologic/Lymphatic Hematologic/Lymphatic: Denies easy bleeding and Denies easy bruising Patient History Medical History Atrial fibrillation (Resolved ~1993) Bladder cancer (Resolved) BPH (benign prostatic hyperplasia) (Chronic) Cervical spine disease (Chronic) Chronic neck pain (Chronic) Coronary artery disease (Chronic) GERD (gastroesophageal reflux disease) (Chronic) Hypertension (Chronic) Myocardial infarction (Resolved 1978) Thoracic aortic aneurysm (Acute) Social History Smoking Status: Former smoker Tobacco: How many years used: 19 second hand exposure: No alcohol intake: never substance use type: does not use alcohol intake frequency: holidays/special occasions only Substance Use Type: does not use Exam Initial Vital Signs Initial Vital Signs: Vital Signs Temperature 98.5 F 08/23/19 21:22 Pulse Rate 75 08/23/19 21:22 Respiratory Rate 21 08/23/19 21:22 Blood Pressure 163/77 H 08/23/19 21:22 Pulse Oximetry 99 08/23/19 21:22 Const General: cooperative and comfortable Orientation: alert, awake and oriented x3 HENMT Head: normal to inspection and normocephalic Resp Effort & Inspection: normal respiratory effort Auscultation: clear to auscultation bilaterally Cardio Rate: regular rate Rhythm: regular rhythm GI Inspection: non-distended Palpation: soft Skin General: no rashes or lesions noted Neuro General: alert, awake and oriented x3 Cognition: normal cognition Speech: speech normal Extrem General: normal to inspection and capillary refill normal Psych Appearance: grossly normal and well kempt Course Orders Ordered: ED Orders 08/23/19 21:22 EKG-12 Lead Stat 08/23/19 21:25 B Type Natriuretic Peptide Stat Comprehensive Metabolic Panel Stat Lipase Stat Partial Thromboplastin Time Stat Prothrombin Time INR Stat Troponin I Stat 08/23/19 22:34 Urine Culture Stat Urine Microscopic Stat Sodium Chloride (Normal Saline 0.9%) 1,000 mls @ 150 mls/hr IV CONT JUAN Last Admin: 08/23/19 21:58 Dose: 150 mls/hr Documented by: KULDEEP Discontinued Medications Hydrocodone Bitart/Acetaminophen ([place] 5/325) 1 tab PO NOW ONE Stop: 08/23/19 22:07 Last Admin: 08/23/19 22:11 Dose: 1 tab Documented by: KULDEEP Ciprofloxacin (Cipro) 250 mg PO NOW ONE Stop: 08/23/19 23:18 Ciprofloxacin (Cipro) 250 mg PO NOW ONE Stop: 08/23/19 23:23 Ondansetron HCl (Zofran) 4 mg IV NOW ONE Stop: 08/23/19 21:34 Last Admin: 08/23/19 21:44 Dose: 4 mg Documented by: KULDEEP Vital Signs Vital signs: Vital Signs - 8 hr 08/23/19 21:22 08/23/19 22:00 08/23/19 22:30 Temperature 98.5 F Pulse Rate 75 72 72 Respiratory Rate 21 17 15 Blood Pressure 163/77 H Blood Pressure [Right Arm] 118/51 L Pulse Oximetry 99 98 99 08/23/19 23:00 Temperature Pulse Rate 77 Respiratory Rate 20 Blood Pressure Blood Pressure [Right Arm] 124/52 L Pulse Oximetry 98 Medical Decision Making Lab Data Lab results reviewed: Yes I reviewed the patient's lab results. Result diagrams: 08/23/19 21:25 Labs: Lab Results 08/23/19 08/23/19 08/23/19 Range/Units 21:25 21:25 21:25 PT 13.3 H (10.1-12.7) SECONDS INR 1.1 (0.9-1.3) APTT 32 (26.4-36.2) SECONDS Sodium 139 (137-145) mmol/L Potassium 4.5 (3.4-5.1) mmol/L Chloride 105 (98-107) mmol/L Carbon Dioxide 26 (22-32) mmol/L BUN 36 H (9-20) mg/dL Creatinine 1.30 H (0.66-1.25) mg/dL Estimated GFR 53.1 L (>60) mL/min BUN/Creatinine Ratio 27.7 H (6-22) Glucose 118 H (80-110) mg/dL Calcium 9.5 (8.4-10.2) mg/dL Total Bilirubin 0.7 (0.2-1.3) mg/dL AST 26 (17-59) IU/L ALT 16 (<50) IU/L Alkaline Phosphatase 95 (38-126) U/L Troponin I < 0.012 (0.01-0.034) ng/mL B-Natriuretic Peptide 151 H (<100) Total Protein 7.5 (6.3-8.2) g/dL Albumin 4.4 (3.5-5.0) g/dL Globulin 3.1 (1.7-4.1) g/dL Albumin/Globulin Ratio 1.4 (1.0-2.8) Lipase 88 (23-300) U/L Urine RBC (0-5/HPF) Urine WBC (0-5/HPF) Ur Squamous Epith Cells (0-5/HPF) Urine Bacteria (None) Ur Culture Indicated? 08/23/19 Range/Units 22:34 PT (10.1-12.7) SECONDS INR (0.9-1.3) APTT (26.4-36.2) SECONDS Sodium (137-145) mmol/L Potassium (3.4-5.1) mmol/L Chloride (98-107) mmol/L Carbon Dioxide (22-32) mmol/L BUN (9-20) mg/dL Creatinine (0.66-1.25) mg/dL Estimated GFR (>60) mL/min BUN/Creatinine Ratio (6-22) Glucose (80-110) mg/dL Calcium (8.4-10.2) mg/dL Total Bilirubin (0.2-1.3) mg/dL AST (17-59) IU/L ALT (<50) IU/L Alkaline Phosphatase (38-126) U/L Troponin I (0.01-0.034) ng/mL B-Natriuretic Peptide (<100) Total Protein (6.3-8.2) g/dL Albumin (3.5-5.0) g/dL Globulin (1.7-4.1) g/dL Albumin/Globulin Ratio (1.0-2.8) Lipase (23-300) U/L Urine RBC 5-10/hpf H (0-5/HPF) Urine WBC 30-100/hpf H (0-5/HPF) Ur Squamous Epith Cells 0-1 /hpf (0-5/HPF) Urine Bacteria Moderate (10-30) H (None) Ur Culture Indicated? Specimen cultured Urine Dip Bedside Urine Glucose Negative Bedside Urine Bilirubin - Negative Bedside Urine Ketone - Negative Urine Specific [place] 1.010 Bedside Urine Occult Blood ++ Bedside Urine pH 6.0 Bedside Urine Protein +/- 15 Bedside Urine Urobilinogen +/- 1mg Bedside Urine Nitrite - Negative Bedside Urine Leukocytes ++ 125 Esterase Point of care testing: Urine Dip Bedside Urine Glucose Negative Bedside Urine Bilirubin - Negative Bedside Urine Ketone - Negative Urine Specific [place] 1.010 Bedside Urine Occult Blood ++ Bedside Urine pH 6.0 Bedside Urine Protein +/- 15 Bedside Urine Urobilinogen +/- 1mg Bedside Urine Nitrite - Negative Bedside Urine Leukocytes ++ 125 Esterase ECG Data Attestation: I personally reviewed and interpreted this ECG as follows: Prior ECG tracings: not available for review Interpretation: Sinus rhythm Ventricular rate of 70 Normal axis Normal QRS Normal QTC Nonspecific ST T wave changes MDM Narrative Medical decision making narrative: Patient is alert oriented x3. Had a hypertensive blood pressure upon arrival which then improved. Does have slightly worsening renal function today. He does have a urologist that he sees. His urine today does look like he has a urinary tract infection. Patient states that he has been on Cipro in the past and that seems to have improved all of his symptoms. A urine culture was obtained. Patient was informed that a urine culture was pending the time of his discharge. He was given his 1st dose of Cipro here in the ER which he tolerated. Will send home with a prescription for the remainder. He is afebrile. Nontoxic appearing. I feel that a trial of outpatient oral antibiotics is warranted in his case. He was given return precautions and follow-up instructions. Expressed understanding and agreement plan. Discharge Plan Departure Patient Disposition: Home Clinical Impression: Urinary tract infection Qualifiers: Urinary tract infection type: site unspecified Hematuria presence: with hematuria Qualified Code(s): N39.0 - Urinary tract infection, site not specified Instructions: DI for Urinary Tract Infection (UTI) Activity Restrictions/Additional Instructions: You were given your 1st dose of antibiotics here in the emergency department. Fill the prescription tomorrow and start taking it as directed. I also re commend that you contact your primary provider for a follow-up. There was a urine culture pending at the time of your discharge. If we need to change any antibiotics we will call you. Return to the emergency department for any new or worsening symptoms. Continue the rest of your medications as directed Prescriptions: New ciprofloxacin HCl 250 mg tablet 250 mg PO BID 3 Days Qty: 6 RF: 0 No Action atorvastatin 40 mg tablet 40 mg PO DAILY RF: 0 (DME) Disabled Parking Pass Qty: 1 RF: 0 aspirin 81 MG tablet,chewable 81 mg PO QDAY Qty: 0 RF: 0 docusate sodium 250 MG capsule 250 mg PO Q DAY Qty: 0 RF: 0 meclizine 25 MG tablet 0 PO SEE INSTRUCTIONS PRNQty: 100 RF: 0 metoprolol tartrate [Lopressor] 50 MG tablet 25 mg PO BID Qty: 0 RF: 0 lisinopril 5 MG tablet 5 mg PO QDAY Qty: 0 RF: 0 tizanidine 2 mg tablet See Rx Instructions .ROUTE .COMPLEX Qty: 270 RF: 1 hydrocodone-acetaminophen 5-325 mg tablet 1 tab PO TID Qty: 90 RF: 0 CMP KCCDGT 12/1/2/3/6/2% See Rx Instructions .ROUTE .COMPLEX Qty: 200 RF: 0 nitroglycerin [Nitrostat] 0.4 mg tablet, sublingual 0.4 mg SL Q5-15M PRNRF: 0 ibuprofen 600 mg tablet See Rx Instructions .ROUTE .COMPLEX Qty: 90 RF: 0 gabapentin 300 mg capsule 300 mg PO BEDTIME RF: 0 Referrals: Carolina Dang, [Primary Care Provider] -
[2019-08-23] MEDS: ONDANSETRON 4 MG/2 ML INJ IV (21:44)
[2019-08-23 21:48] LABS: INR 1.1 (0.9-1.3); Prothrombin Time 13.3 SECONDS (10.1-12.7)
[2019-08-23 21:50] LABS: PTT Partial Thromboplastin Tim 32 SECONDS (26.4-36.2)
[2019-08-23] MEDS: SODIUM CHLORIDE 0.9% 1,000 ML 150 ML IV (21:58)
[2019-08-23 21:59] LABS: Alanine Aminotransferase 16 IU/L (<50); Albumin 4.4 g/dL (3.5-5.0); Albumin Globulin Ratio 1.4 (1.0-2.8); Alkaline Phosphatase 95 U/L (38-126); Aspartate Aminotransferase 26 IU/L (17-59); BUN Creatinine Ratio 27.7 (6-22); Bilirubin Total 0.7 mg/dL (0.2-1.3); Blood Urea Nitrogen 36 mg/dL (9-20); Calcium 9.5 mg/dL (8.4-10.2); Carbon Dioxide 26 mmol/L (22-32); Chloride 105 mmol/L (98-107); Estimated Glomerular Filt Rate 53.1 mL/min (>60); Globulin 3.1 g/dL (1.7-4.1); Glucose 118 mg/dL (80-110); HEMOLYSIS 17 (0-50); Lipase 88 U/L (23-300); Potassium 4.5 mmol/L (3.4-5.1); Sodium 139 mmol/L (137-145); Total Protein 7.5 g/dL (6.3-8.2)
[2019-08-23 22:00] VITALS: BP 118/51; PULSE 72; RESP 17; O2SAT 98
[2019-08-23 22:08] LABS: B Type Natriuretic Peptide 151 (<100)
[2019-08-23 22:11] LABS: Troponin I < 0.012 ng/mL (0.01-0.034)
[2019-08-23] MEDS: HYDROCODONE/ACET 5/325 TABLET 1 TAB PO (22:11)
[2019-08-23 22:30] VITALS: PULSE 72; RESP 15; O2SAT 99
[2019-08-23 23:00] VITALS: BP 124/52; PULSE 77; RESP 20; O2SAT 98
[2019-08-23 23:01] LABS: Bacteria Urine Moderate (10-30); Culture Indicated Urine Specimen Cultured; RBC Urine 5-10/HPF (0-5/HPF); Squamous Epithelial Cell Urine 0-1 /HPF (0-5/HPF); WBC Urine 30-100/HPF (0-5/HPF)
[2019-08-23] MEDS: CIPROFLOXACIN 500 MG TABLET 250 MG PO (23:27)
[2019-08-24] MEDS: ONDANSETRON 4 MG ODT PREPACK 1 BOTTLE MISC (00:02)
== END 2019-08-23 23:55 | disposition home or self-care (01) ==
PROVIDERS: Emergency Provider Emergency Medicine; Family Provider Family Medicine; PCP Family Medicine
DX: N39.0 Urinary tract infection, site not specified (principal); R06.00 Dyspnea, unspecified; I10 Essential (primary) hypertension
CPT/HCPCS: 36415; 80053; 81003; 81015; 83690; 83880; 84484; 85610; 85730; 87077; 87086; 87185; 87186; 93005; 93010; 96361; 96374; 99283; 99284; J2405

== ENCOUNTER 2019-09-07 08:15 | Outpatient (RCR) | payer MEDICARE, OTHER, SELFPAY ==
--- NOTE | 2019-05-10 13:45 | PT.OIE ---
Current Diagnoses Stiffness of unspecified joint, not elsewhere classified (05/10/19) Radiculopathy, lumbar region (05/10/19) Low back pain (05/10/19) Abnormal posture (05/10/19) Weakness (05/10/19) Past Medical History (Last Reviewed 03/16/19 @ 15:30 by Carolina Dang DO) Thoracic aortic aneurysm (Acute) BPH (benign prostatic hyperplasia) (Chronic) Cervical spine disease (Chronic) Chronic neck pain (Chronic) Coronary artery disease (Chronic) GERD (gastroesophageal reflux disease) (Chronic) Hypertension (Chronic) Atrial fibrillation (Resolved ~1993) Bladder cancer (Resolved) Myocardial infarction (Resolved 1978) Past Surgical History (Last Reviewed 03/16/19 @ 15:31 by Carolina Dang DO) History of abdominal aortic aneurysm repair (Resolved ~2006) Hx of cervical discectomy (Resolved) Hx of coronary artery bypass graft (Resolved ~1980) Hx of laminectomy (Resolved ~04/2016) Hx of transurethral resection of prostate (Resolved) S/P carotid endarterectomy (Resolved ~1990) Provider Visit Care Team Role Provider Type Carolina Dang DO Attending Provider Physician Primary Care Provider Specialty: Family Practice Address: [address] [place] [address] Email: [email or web address] Physical Therapy Initial Evaluation PT-OP-A Visit Information Start: 05/10/19 13:53 Freq: Status: Active Protocol: Document 05/10/19 13:53 RUSTY (Rec: 05/15/19 17:29 [facility] [id number]) Out-Patient Physical Therapy Visit Information Visit Information Visit Type Initial Evaluation Visit Start Time 13:45 Visit Stop Time 14:40 Total Visit Minutes 55 Visit Number 1 Number of EP TECH Visits 0 Precautions Precautions cardiac cervical fusion arthritis HTN PT-OP-B Current Condition Start: 05/10/19 13:53 Freq: Status: Active Protocol: Document 05/10/19 13:53 RUSTY (Rec: 05/10/19 14:33 SAK [id number]) Current Condition History of Current Condition Onset Date 07/20/19 Current Complaints worsening LBP, inability to tolerate upright activity History of Current Condition Since last seen LE pain into right LE just posterior lateral right knee instead of all the way to his foot, but reports an increase in back pain. LBP better when sits or lays down. For neck pain using compounded ointment. Went to pain clinic last week; met with physical therapist at who wants to consult with this PT. Patient states that therapist agreed with him doing aquatic therapy . Had x-ray today after lunging over car console to reach into passenger side floor, reports right sided thoracic pain. X-ray negative . Saw Dr. Dang last week. Pain medication use same. Sleeping only on left side since injuring ribs on right, so left side hurting. Not doing any HEP. Bilateral foot numbness right greater than left. Can't walk any significant distances due to pain with standing and walking Prior Treatments and Tests L45 laminectomy 07/20/19 prior lumbar laminectomy cervical fusion Future Testing and Treatments Planned Reports his 3 physicians to come up with plan for any further treatments or procedures Treatment Goals Patient/Caregiver Goals Be able to walk community distances without increase in pain, be able to golf. Prior Functional Status Baseline Function- ADL's Modified Independent Baseline Function- Mobility Modified Independent Baseline Function- Gait Independent without device Baseline Function- Work/School retored Baseline Function- Recreation/Hobbies frequent golfing Current Functional Impairments (Reported) Functional Limitations- ADL's independent but painful Functional Limitations- Mobility/Gait limited primarily to household due to need to sit frequently due to pain Functional Limitations- Work/School retired Functional Limitations- Recreation/ unable to golf or take walks Hobbies due to pain PT-OP-C Subjective Start: 05/10/19 13:53 Freq: Status: Active Protocol: Document 05/10/19 13:53 [facility] (Rec: 05/15/19 17:29 [facility] [id number]) Patient Questionnaires Oswestry Low Back Index Oswestry Score 56 Oswestry Impairment 40 to 59% Impaired (Score 40- 59) OP-PT Pain Assessment Pain Assessment Grid Paper Pain Assessment Grid Completed Yes Location diana lumbar spine Intensity 8 Description Aching Chronic Pressure Shooting Throbbing Frequency Frequent Pain Aggravating Factors Activity Standing Walking Pain Alleviating Factors Lying Supine Sitting Home Pain Medication Use Pain Medications Used Yes Pain Behaviors Pain Behaviors Facial Grimacing Guarding PT-OP-J Posture/Palpation/Skin Start: 05/10/19 13:53 Freq: Status: Active Protocol: Document 05/10/19 13:53 [facility] (Rec: 05/15/19 17:29 [facility] [id number]) Posture Evaluation Position Standing Head/C-Spine Posture Forward Head L-Spine Posture Flattened Shoulder Posture (L) Rounded (R) Rounded Hip Posture (L) Externally Rotated (R) Externally Rotated Palpation Assessment Location diana lumbar paraspinals Palpation Findings Soft Tissue Tightness Muscle Guarding Tenderness Palpation Details tight diana, right greater than left PT-OP-K Range of Motion Start: 05/10/19 13:53 Freq: Status: Active Protocol: Document 05/10/19 13:53 [facility] (Rec: 05/15/19 17:29 [facility] [id number]) Lumbar Spine Range of Motion Lumbar Spine Active Degrees Testing Position Standing Flexion 20 Rotation Left 15 Rotation Right 15 Lateral Flexion Left 25 Lateral Flexion Right 25 ROM Limitations Soft Tissue Tightness Pain Comments -10 deg ext with c/o increased pain Hip Goniometric Range of Motion Hip Left Flexion w/Knee Flexed 105 Straight Leg Raise 45 Internal Rotation 25 External Rotation 70 Right Flexion w/Knee Flexed 110 Straight Leg Raise 45 Internal Rotation 15 External Rotation 20 Hip ROM Limitations Comments -5 diana hip ext Ankle and Foot Goniometric Range of Motion Ankle and Foot diana Dorsiflexion with Knee Flexed 0 Ankle and Foot ROM Limitations ROM Limitations Soft Tissue Tightness Comments -5 ankle df with knee extended PT-OP-L Special Tests Start: 05/10/19 13:53 Freq: Status: Active Protocol: Document 05/10/19 13:53 [facility] (Rec: 05/15/19 17:29 [facility] [id number]) Special Tests Lumbar Spine Special Tests Manual Traction Test Results positive for increasing pain Horacio Test Results positive for hip flexor tightness diana Straight Leg Raise Test Results positive for muscle tightness not radicular pain Compression Test Results positive right Comments pain radiating to right posterior knee Hip Special Tests Scour Test Test Results negative diana PT-OP-M Strength Start: 05/10/19 13:53 Freq: Status: Active Protocol: Document 05/10/19 13:53 [facility] (Rec: 05/15/19 17:29 [facility] [id number]) Trunk Strength Trunk Manual Muscle Testing Flexion 3- Fair- Extension 2+ Poor+ Hip Strength Hip Manual Muscle Testing Left Flexion (L2) 4 Good Extension (S1) 2+ Poor+ Abduction 3- Fair- External Rotation 3+ Fair+ Internal Rotation 4- Good- Right Flexion (L2) 4 Good Extension (S1) 2+ Poor+ Abduction 3- Fair- External Rotation 3+ Fair+ Internal Rotation 4- Good- Knee Strength Knee Manual Muscle Testing diana Flexion (S2) 4+ Good+ Extension (L3) 4+ Good+ Ankle/Foot Strength Ankle and Foot Manual Muscle Testing Left Dorsiflexion (L4) 4+ Good+ Right Dorsiflexion (L4) 4 Good Plantarflexion (S1) 4 Good Toe Strength Toe Manual Muscle Testing Left Great Toe Flexion 4+ Good+ Extension 4+ Good+ Right Great Toe Flexion 4 Good Extension 4 Good PT-OP-Q Treatments Start: 05/10/19 13:53 Freq: Status: Active Protocol: Document 05/10/19 13:53 [facility] (Rec: 05/15/19 17:29 [facility] [id number]) Self-Care/Home Management Treatment Education Patient Education Home Exercise Program Pain Management PT-OP-R Modalities Start: 05/10/19 13:53 Freq: Status: Active Protocol: Document 05/10/19 13:53 [facility] (Rec: 05/15/19 17:29 [facility] [id number]) Electric Stimulation Electric Stimulation Interferential Current (IFC) Body Location bilateral lumbar paraspinals Duration (Minutes) 15 Target/Sweep Sweep High/Low High Patient Position Sitting Combined With Heat/Cold Hot Pack PT-OP-T Assessment and Plan Start: 05/10/19 13:53 Freq: Status: Active Protocol: Document 05/10/19 13:53 [facility] (Rec: 05/15/19 17:29 [facility] [id number]) Physical Therapy Assessment Rehab Potential Rehabilitation Potential Good Evaluation Complexity Number of Personal Factors/Comorbidities 3 or More Number of Body Systems Impaired 3 Clinical Presentation at Evaluation Evolving Impairments Impairments Activity Tolerance Gait Pain ROM Strength Goals range of motion Impairment stiffness throughout patient's trunk and hips Short Term Goal (STG) Instruct in HEP to address soft tissue mobility impairments STG Duration 06/21/19 Half-Way Goal (LTG) Patient to demonstrate improvements in overall flexibility throughout trunk and hips and be safe and independent with HEP and aquatic exercise program for long-term fitness and pain management. Strength Impairment weakness core and hips Short Term Goal (STG) Patient to begin land and aquatic exercise to address impairments in core and hip muscle strength STG Duration 06/21/19 Tooling Manager Goal (LTG) Improve strength to at least 4 +/5 throughout trunk and LE's with patient demonstrating safety and independence with HEP and aquatic exercise program for long-term fitness and pain management. LTG Duration 08/09/19 Pain Impairment Pain level 8/10 Short Term Goal (STG) Decrease pain to no greater than 5/10 STG Duration 06/21/19 Half-Way Goal (LTG) Decrease pain to no greater than 3/10 LTG Duration 08/09/19 Gait Impairment Requires use of walker, unable to walk community distances Short Term Goal (STG) Patient able to walk for short community distances with use of cane without an increase in pain STG Duration 06/21/19 Tooling Manager Goal (LTG) Patient able to ambulate without device for community distances. LTG Duration 08/09/19 Activity tolerance Impairment Oswestry disability index score 56% Short Term Goal (STG) Decrease Oswestry score to no greater than 40% to improve patient's tolerance for usual daily activities STG Duration 06/21/18 Tooling Manager Goal (LTG) Decrease Oswestry score to no greater than 25% with patient able to resume playing golf LTG Duration 08/09/19 Assessment Summary Assessment Patient presents with function -limiting pain in bilateral lumbar spine right greater than left with radicular symptoms into his right LE. He is severely limited in his tolerance for standing and walking, reporting onset of pain as soon as he stands up. The flexed posture of both his neck and trunk results in excessive muscle tension, contributing to his pain. Recommend primarily aquatic therapy for this patient to allow upright mobility in a gravity minimized and eliminated environment to allow for increased ease of movement, decreased pain as he works on strength and flexibility. The importance of regularly performing consistent exercises was stressed. Physical Therapy Plan Frequency and Duration Frequency of Treatment 2x/Week Duration of Treatment 12 Plan of Care Start Date 05/10/19 Plan of Care End Date 08/09/19 Therapeutic Interventions Therapeutic Interventions Aquatic Therapy Gait Training Home Exercise Program Manual Therapy Patient/Caregiver Education Self-Care/Home Management Soft Tissue Mobilization Taping Therapeutic Activities Therapeutic Exercises Modalities Cold Pack/Ice Massage Electric Stimulation Hot Packs Traction- Mechanical Ultrasound Next Visit Focus/Plan Next Note Type Treatment Note Next Visit Plan Initiate aquatic therapy
--- NOTE | 2019-05-10 13:45 | PT.OPPOC ---
Current Diagnoses Stiffness of unspecified joint, not elsewhere classified (05/10/19) Radiculopathy, lumbar region (05/10/19) Low back pain (05/10/19) Abnormal posture (05/10/19) Weakness (05/10/19) Provider Visit Care Team Role Provider Type Carolina Dang DO Attending Provider Physician Primary Care Provider Specialty: [facility] Practice Address: [address] [place] [address], [facility] Email: [email or web address] Plan Of Care PT-OP-T Assessment and Plan Start: 05/10/19 13:53 Freq: Status: Active Protocol: Document 05/10/19 13:53 RUSTY (Rec: 05/15/19 17:29 SAK [id number]) Physical Therapy Assessment Rehab Potential Rehabilitation Potential Good Evaluation Complexity Number of Personal Factors/Comorbidities 3 or More Number of Body Systems Impaired 3 Clinical Presentation at Evaluation Evolving Impairments Impairments Activity Tolerance Gait Pain ROM Strength Goals range of motion Impairment stiffness throughout patient's trunk and hips Short Term Goal (STG) Instruct in HEP to address soft tissue mobility impairments STG Duration 06/21/19 Rat Culturist Goal (LTG) Patient to demonstrate improvements in overall flexibility throughout trunk and hips and be safe and independent with HEP and aquatic exercise program for long-term fitness and pain management. Strength Impairment weakness core and hips Short Term Goal (STG) Patient to begin land and aquatic exercise to address impairments in core and hip muscle strength STG Duration 06/21/19 Mcc Goal (LTG) Improve strength to at least 4 +/5 throughout trunk and LE's with patient demonstrating safety and independence with HEP and aquatic exercise program for long-term fitness and pain management. LTG Duration 08/09/19 Pain Impairment Pain level 8/10 Short Term Goal (STG) Decrease pain to no greater than 5/10 STG Duration 06/21/19 Mcc Goal (LTG) Decrease pain to no greater than 3/10 LTG Duration 08/09/19 Gait Impairment Requires use of walker, unable to walk community distances Short Term Goal (STG) Patient able to walk for short community distances with use of cane without an increase in pain STG Duration 06/21/19 Rat Culturist Goal (LTG) Patient able to ambulate without device for community distances. LTG Duration 08/09/19 Activity tolerance Impairment Oswestry disability index score 56% Short Term Goal (STG) Decrease Oswestry score to no greater than 40% to improve patient's tolerance for usual daily activities STG Duration 06/21/18 Mcc Goal (LTG) Decrease Oswestry score to no greater than 25% with patient able to resume playing golf LTG Duration 08/09/19 Assessment Summary Assessment Patient presents with function -limiting pain in bilateral lumbar spine right greater than left with radicular symptoms into his right LE. He is severely limited in his tolerance for standing and walking, reporting onset of pain as soon as he stands up. The flexed posture of both his neck and trunk results in excessive muscle tension, contributing to his pain. Recommend primarily aquatic therapy for this patient to allow upright mobility in a gravity minimized and eliminated environment to allow for increased ease of movement, decreased pain as he works on strength and flexibility. The importance of regularly performing consistent exercises was stressed. Physical Therapy Plan Frequency and Duration Frequency of Treatment 2x/Week Duration of Treatment 12 Plan of Care Start Date 05/10/19 Plan of Care End Date 08/09/19 Therapeutic Interventions Therapeutic Interventions Aquatic Therapy Gait Training Home Exercise Program Manual Therapy Patient/Caregiver Education Self-Care/Home Management Soft Tissue Mobilization Taping Therapeutic Activities Therapeutic Exercises Modalities Cold Pack/Ice Massage Electric Stimulation Hot Packs Traction- Mechanical Ultrasound Next Visit Focus/Plan Next Note Type Treatment Note Next Visit Plan Initiate aquatic therapy Plan of Care Dates Plan of Care Start Date 05/10/19 Plan of Care End Date 08/09/19 Please Sign and Return: I have reviewed this Plan of Care and certify that the skilled therapy services above are required to meet the patient?s needs. Physician Signature Date Printed Name and Credentials Clinical Instructor Signature Printed Name and Credentials
--- NOTE | 2019-05-16 11:30 | PT.OTN ---
Current Diagnoses Stiffness of unspecified joint, not elsewhere classified (05/16/19) Radiculopathy, lumbar region (05/16/19) Low back pain (05/16/19) Abnormal posture (05/16/19) Weakness (05/16/19) Physical Therapy Treatment Note PT-OP-A Visit Information Start: 05/10/19 13:53 Freq: Status: Active Protocol: Document 05/16/19 11:30 SAK (Rec: 05/17/19 09:05 [facility] [id number]) Out-Patient Physical Therapy Visit Information Visit Information Visit Type Aquatic Treatment Note Visit Start Time 11:30 Visit Stop Time 12:15 Total Visit Minutes 45 Visit Number 1 Number of PIE ICER MACHINE Visits 0 Precautions Precautions cardiac cervical fusion arthritis HTN PT-OP-B Current Condition Start: 05/10/19 13:53 Freq: Status: Active Protocol: Document 05/10/19 13:53 SAK (Rec: 05/10/19 14:33 SAK [id number]) Current Condition History of Current Condition Onset Date 07/20/19 Current Complaints worsening LBP, inability to tolerate upright activity History of Current Condition Since last seen LE pain into right LE just posterior lateral right knee instead of all the way to his foot, but reports an increase in back pain. LBP better when sits or lays down. For neck pain using compounded ointment. Went to pain clinic last week; met with physical therapist at who wants to consult with this PT. Patient states that therapist agreed with him doing aquatic therapy . Had x-ray today after lunging over car console to reach into passenger side floor, reports right sided thoracic pain. X-ray negative . Saw Dr. Dang last week. Pain medication use same. Sleeping only on left side since injuring ribs on right, so left side hurting. Not doing any HEP. Bilateral foot numbness right greater than left. Can't walk any significant distances due to pain with standing and walking Prior Treatments and Tests L45 laminectomy 07/20/19 prior lumbar laminectomy cervical fusion Future Testing and Treatments Planned Reports his 3 physicians to come up with plan for any further treatments or procedures Treatment Goals Patient/Caregiver Goals Be able to walk community distances without increase in pain, be able to golf. Prior Functional Status Baseline Function- ADL's Modified Independent Baseline Function- Mobility Modified Independent Baseline Function- Gait Independent without device Baseline Function- Work/School retored Baseline Function- Recreation/Hobbies frequent golfing Current Functional Impairments (Reported) Functional Limitations- ADL's independent but painful Functional Limitations- Mobility/Gait limited primarily to household due to need to sit frequently due to pain Functional Limitations- Work/School retired Functional Limitations- Recreation/ unable to golf or take walks Hobbies due to pain PT-OP-C Subjective Start: 05/10/19 13:53 Freq: Status: Active Protocol: Document 05/16/19 11:30 SAK (Rec: 05/17/19 09:09 [facility] [id number]) OP-PT Subjective Patient Comments Patient Comments reports fairly immediate decrease in pain after entering the pool PT-OP-J Posture/Palpation/Skin Start: 05/10/19 13:53 Freq: Status: Active Protocol: Document 05/10/19 13:53 SAK (Rec: 05/15/19 17:29 [facility] [id number]) Posture Evaluation Position Standing Head/C-Spine Posture Forward Head L-Spine Posture Flattened Shoulder Posture (L) Rounded (R) Rounded Hip Posture (L) Externally Rotated (R) Externally Rotated Palpation Assessment Location diana lumbar paraspinals Palpation Findings Soft Tissue Tightness Muscle Guarding Tenderness Palpation Details tight diana, right greater than left PT-OP-K Range of Motion Start: 05/10/19 13:53 Freq: Status: Active Protocol: Document 05/10/19 13:53 SAK (Rec: 05/15/19 17:29 [facility] [id number]) Lumbar Spine Range of Motion Lumbar Spine Active Degrees Testing Position Standing Flexion 20 Rotation Left 15 Rotation Right 15 Lateral Flexion Left 25 Lateral Flexion Right 25 ROM Limitations Soft Tissue Tightness Pain Comments -10 deg ext with c/o increased pain Hip Goniometric Range of Motion Hip Left Flexion w/Knee Flexed 105 Straight Leg Raise 45 Internal Rotation 25 External Rotation 70 Right Flexion w/Knee Flexed 110 Straight Leg Raise 45 Internal Rotation 15 External Rotation 20 Hip ROM Limitations Comments -5 diana hip ext Ankle and Foot Goniometric Range of Motion Ankle and Foot diana Dorsiflexion with Knee Flexed 0 Ankle and Foot ROM Limitations ROM Limitations Soft Tissue Tightness Comments -5 ankle df with knee extended PT-OP-L Special Tests Start: 05/10/19 13:53 Freq: Status: Active Protocol: Document 05/10/19 13:53 SAK (Rec: 05/15/19 17:29 [facility] [id number]) Special Tests Lumbar Spine Special Tests Manual Traction Test Results positive for increasing pain Horacio Test Results positive for hip flexor tightness diana Straight Leg Raise Test Results positive for muscle tightness not radicular pain Compression Test Results positive right Comments pain radiating to right posterior knee Hip Special Tests Scour Test Test Results negative diana PT-OP-M Strength Start: 05/10/19 13:53 Freq: Status: Active Protocol: Document 05/10/19 13:53 [facility] (Rec: 05/15/19 17:29 [facility] [id number]) Trunk Strength Trunk Manual Muscle Testing Flexion 3- Fair- Extension 2+ Poor+ Hip Strength Hip Manual Muscle Testing Left Flexion (L2) 4 Good Extension (S1) 2+ Poor+ Abduction 3- Fair- External Rotation 3+ Fair+ Internal Rotation 4- Good- Right Flexion (L2) 4 Good Extension (S1) 2+ Poor+ Abduction 3- Fair- External Rotation 3+ Fair+ Internal Rotation 4- Good- Knee Strength Knee Manual Muscle Testing diana Flexion (S2) 4+ Good+ Extension (L3) 4+ Good+ Ankle/Foot Strength Ankle and Foot Manual Muscle Testing Left Dorsiflexion (L4) 4+ Good+ Right Dorsiflexion (L4) 4 Good Plantarflexion (S1) 4 Good Toe Strength Toe Manual Muscle Testing Left Great Toe Flexion 4+ Good+ Extension 4+ Good+ Right Great Toe Flexion 4 Good Extension 4 Good PT-OP-Q Treatments Start: 05/10/19 13:53 Freq: Status: Active Protocol: Document 05/10/19 13:53 [facility] (Rec: 05/15/19 17:29 [facility] [id number]) Self-Care/Home Management Treatment Education Patient Education Home Exercise Program Pain Management PT-OP-R Modalities Start: 05/10/19 13:53 Freq: Status: Active Protocol: Document 05/10/19 13:53 [facility] (Rec: 05/15/19 17:29 [facility] [id number]) Electric Stimulation Electric Stimulation Interferential Current (IFC) Body Location bilateral lumbar paraspinals Duration (Minutes) 15 Target/Sweep Sweep High/Low High Patient Position Sitting Combined With Heat/Cold Hot Pack PT-OP-S Aquatic Treatment Start: 05/10/19 13:53 Freq: Status: Active Protocol: Document 05/16/19 11:30 SAK (Rec: 05/17/19 09:05 [facility] [id number]) Aquatics Treatment Pool Entry/Exit Pool Entry/Exit Method Stairs Assistance Independent Water Walking walking with directional changes Water Level Chest Level Level of Assistance Standby Assistance backward Water Level Chest Level Level of Assistance Standby Assistance december Water Level Chest Level Level of Assistance Standby Assistance forward, side Water Level Chest Level Level of Assistance Standby Assistance Verbal Cues Lower Extremity Exercises HS curl at wall Water Level Chest Level Comments holding on to wall, cues for posture knee flex/ext Reps/Duration 10x bilat Comments (with 90 deg hip flex) squats Reps/Duration 15x Comments cues for mm activation sequence circles Details pain-free ROM Reps/Duration 10x ea direction Comments mod UE support hip flex/ext Details gentle Equipment Ankle Floats Reps/Duration 10x Comments mod UE support hip ab/ad Details gentle w/cross over front and back Reps/Duration 10x Comments mod UE support heel toe raise Reps/Duration 10x Lower Extremity Stretches Single knee to chest bilat Details at wall Body Position Standing Water Level Chest Level Equipment Small Noodle Reps/Duration 2x30' HS, ITB, hip add Equipment Small Noodle Reps/Duration 2x [place] Activities [place] Activities Bicycle Other Activities deep water hang 10 min w/#2.5, tangirnaq foam float Equipment tangirnaq foam float Duration 15 minutes Comments minimal to no UE support with bicycle PT-OP-T Assessment and Plan Start: 05/10/19 13:53 Freq: Status: Active Protocol: Document 05/16/19 11:30 [facility] (Rec: 05/17/19 09:05 [facility] [id number]) Physical Therapy Assessment Goals range of motion Impairment stiffness throughout patient's trunk and hips Short Term Goal (STG) Instruct in HEP to address soft tissue mobility impairments STG Duration 06/21/19 Assisted Goal (LTG) Patient to demonstrate improvements in overall flexibility throughout trunk and hips and be safe and independent with HEP and aquatic exercise program for long-term fitness and pain management. Strength Impairment weakness core and hips Short Term Goal (STG) Patient to begin land and aquatic exercise to address impairments in core and hip muscle strength STG Duration 06/21/19 Wheel Braider Goal (LTG) Improve strength to at least 4 +/5 throughout trunk and LE's with patient demonstrating safety and independence with HEP and aquatic exercise program for long-term fitness and pain management. LTG Duration 08/09/19 Pain Impairment Pain level 8/10 Short Term Goal (STG) Decrease pain to no greater than 5/10 STG Duration 06/21/19 Wheel Braider Goal (LTG) Decrease pain to no greater than 3/10 LTG Duration 08/09/19 Gait Impairment Requires use of walker, unable to walk community distances Short Term Goal (STG) Patient able to walk for short community distances with use of cane without an increase in pain STG Duration 06/21/19 Assisted Goal (LTG) Patient able to ambulate without device for community distances. LTG Duration 08/09/19 Activity tolerance Impairment Oswestry disability index score 56% Short Term Goal (STG) Decrease Oswestry score to no greater than 40% to improve patient's tolerance for usual daily activities STG Duration 06/21/18 Wheel Braider Goal (LTG) Decrease Oswestry score to no greater than 25% with patient able to resume playing golf LTG Duration 08/09/19 Assessment Summary Assessment Good tolerance for aquatic therapy session with patient reporting minimal back pain while in water. Physical Therapy Plan Frequency and Duration Frequency of Treatment 2x/Week Duration of Treatment 12 Plan of Care Start Date 05/10/19 Plan of Care End Date 08/09/19 Therapeutic Interventions Therapeutic Interventions Aquatic Therapy Gait Training Home Exercise Program Manual Therapy Patient/Caregiver Education Self-Care/Home Management Soft Tissue Mobilization Taping Therapeutic Activities Therapeutic Exercises Modalities Cold Pack/Ice Massage Electric Stimulation Hot Packs Traction- Mechanical Ultrasound Next Visit Focus/Plan Next Note Type Treatment Note Next Visit Plan Next session land-based. Review HEP with gentle progression. Manual therapy to lumbar paraspinals, possibly hip musculature.
--- NOTE | 2019-05-18 14:55 | PT.OTN ---
Current Diagnoses Stiffness of unspecified joint, not elsewhere classified (05/18/19) Radiculopathy, lumbar region (05/18/19) Low back pain (05/18/19) Abnormal posture (05/18/19) Weakness (05/18/19) Physical Therapy Treatment Note PT-OP-A Visit Information Start: 05/10/19 13:53 Freq: Status: Active Protocol: Document 05/18/19 10:25 SAK (Rec: 05/18/19 14:51 SAK [id number]) Out-Patient Physical Therapy Visit Information Visit Information Visit Type Treatment Note Visit Start Time 10:25 Visit Stop Time 11:18 Total Visit Minutes 53 Visit Number 3 Number of COIN BOX INSPECTOR Visits 0 Precautions Precautions cardiac cervical fusion arthritis HTN PT-OP-B Current Condition Start: 05/10/19 13:53 Freq: Status: Active Protocol: Document 05/10/19 13:53 SAK (Rec: 05/10/19 14:33 SAK [id number]) Current Condition History of Current Condition Onset Date 07/20/19 Current Complaints worsening LBP, inability to tolerate upright activity History of Current Condition Since last seen LE pain into right LE just posterior lateral right knee instead of all the way to his foot, but reports an increase in back pain. LBP better when sits or lays down. For neck pain using compounded ointment. Went to pain clinic last week; met with physical therapist at who wants to consult with this PT. Patient states that therapist agreed with him doing aquatic therapy . Had x-ray today after lunging over car console to reach into passenger side floor, reports right sided thoracic pain. X-ray negative . Saw Dr. Dang last week. Pain medication use same. Sleeping only on left side since injuring ribs on right, so left side hurting. Not doing any HEP. Bilateral foot numbness right greater than left. Can't walk any significant distances due to pain with standing and walking Prior Treatments and Tests L45 laminectomy 07/20/19 prior lumbar laminectomy cervical fusion Future Testing and Treatments Planned Reports his 3 physicians to come up with plan for any further treatments or procedures Treatment Goals Patient/Caregiver Goals Be able to walk community distances without increase in pain, be able to golf. Prior Functional Status Baseline Function- ADL's Modified Independent Baseline Function- Mobility Modified Independent Baseline Function- Gait Independent without device Baseline Function- Work/School retored Baseline Function- Recreation/Hobbies frequent golfing Current Functional Impairments (Reported) Functional Limitations- ADL's independent but painful Functional Limitations- Mobility/Gait limited primarily to household due to need to sit frequently due to pain Functional Limitations- Work/School retired Functional Limitations- Recreation/ unable to golf or take walks Hobbies due to pain PT-OP-C Subjective Start: 05/10/19 13:53 Freq: Status: Active Protocol: Document 05/18/19 10:25 SAK (Rec: 05/18/19 14:51 [facility] [id number]) OP-PT Subjective Patient Comments Patient Comments Reports started doing some of his HEP as previously instructed though can't find his handout so requests new one. Some soreness, hopefully just from my muscles PT-OP-J Posture/Palpation/Skin Start: 05/10/19 13:53 Freq: Status: Active Protocol: Document 05/10/19 13:53 SAK (Rec: 05/15/19 17:29 [facility] [id number]) Posture Evaluation Position Standing Head/C-Spine Posture Forward Head L-Spine Posture Flattened Shoulder Posture (L) Rounded (R) Rounded Hip Posture (L) Externally Rotated (R) Externally Rotated Palpation Assessment Location diana lumbar paraspinals Palpation Findings Soft Tissue Tightness Muscle Guarding Tenderness Palpation Details tight diana, right greater than left PT-OP-K Range of Motion Start: 05/10/19 13:53 Freq: Status: Active Protocol: Document 05/10/19 13:53 [facility] (Rec: 05/15/19 17:29 [facility] [id number]) Lumbar Spine Range of Motion Lumbar Spine Active Degrees Testing Position Standing Flexion 20 Rotation Left 15 Rotation Right 15 Lateral Flexion Left 25 Lateral Flexion Right 25 ROM Limitations Soft Tissue Tightness Pain Comments -10 deg ext with c/o increased pain Hip Goniometric Range of Motion Hip Left Flexion w/Knee Flexed 105 Straight Leg Raise 45 Internal Rotation 25 External Rotation 70 Right Flexion w/Knee Flexed 110 Straight Leg Raise 45 Internal Rotation 15 External Rotation 20 Hip ROM Limitations Comments -5 diana hip ext Ankle and Foot Goniometric Range of Motion Ankle and Foot diana Dorsiflexion with Knee Flexed 0 Ankle and Foot ROM Limitations ROM Limitations Soft Tissue Tightness Comments -5 ankle df with knee extended PT-OP-L Special Tests Start: 05/10/19 13:53 Freq: Status: Active Protocol: Document 05/10/19 13:53 [facility] (Rec: 05/15/19 17:29 [facility] [id number]) Special Tests Lumbar Spine Special Tests Manual Traction Test Results positive for increasing pain Horacio Test Results positive for hip flexor tightness diana Straight Leg Raise Test Results positive for muscle tightness not radicular pain Compression Test Results positive right Comments pain radiating to right posterior knee Hip Special Tests Scour Test Test Results negative diana PT-OP-M Strength Start: 05/10/19 13:53 Freq: Status: Active Protocol: Document 05/10/19 13:53 [facility] (Rec: 05/15/19 17:29 [facility] [id number]) Trunk Strength Trunk Manual Muscle Testing Flexion 3- Fair- Extension 2+ Poor+ Hip Strength Hip Manual Muscle Testing Left Flexion (L2) 4 Good Extension (S1) 2+ Poor+ Abduction 3- Fair- External Rotation 3+ Fair+ Internal Rotation 4- Good- Right Flexion (L2) 4 Good Extension (S1) 2+ Poor+ Abduction 3- Fair- External Rotation 3+ Fair+ Internal Rotation 4- Good- Knee Strength Knee Manual Muscle Testing diana Flexion (S2) 4+ Good+ Extension (L3) 4+ Good+ Ankle/Foot Strength Ankle and Foot Manual Muscle Testing Left Dorsiflexion (L4) 4+ Good+ Right Dorsiflexion (L4) 4 Good Plantarflexion (S1) 4 Good Toe Strength Toe Manual Muscle Testing Left Great Toe Flexion 4+ Good+ Extension 4+ Good+ Right Great Toe Flexion 4 Good Extension 4 Good PT-OP-Q Treatments Start: 05/10/19 13:53 Freq: Status: Active Protocol: Document 05/18/19 10:25 [facility] (Rec: 05/18/19 14:54 [facility] [id number]) Cardio Equipment Recumbent Stepper (Sci-Fit) Duration (Minutes) 6 Resistance 1 Seat Position 12 Gym Equipment Shuttle Recovery Bilateral Squats Resistance 50 Shuttle Recovery Platform Stable Reps/Time 10x2 Therapeutic Exercises Supine Exercises IT band stretch Reps/Minutes 2x Comments gentle, SKTC Reps/Minutes 2x Comments opp LE straight for hip flexor stretch HS stretch Reps/Minutes 2x Comments manual Manual Therapy Treatment Soft Tissue Mobilization hamstrings Body Position Supine right quadricep Mobilization Type Myofascial Release Rolling Strumming Intensity/Depth Moderate IT band Body Location right ITB Mobilization Type Myofascial Release Rolling Strumming Intensity/Depth Moderate lumbar paraspinals, piriformis Mobilization Type Myofascial Release Rolling Strumming Intensity/Depth Moderate Body Position left sidelying PT-OP-R Modalities Start: 05/10/19 13:53 Freq: Status: Active Protocol: Document 05/18/19 10:25 [facility] (Rec: 05/18/19 14:54 [facility] [id number]) Electric Stimulation Electric Stimulation Interferential Current (IFC) Body Location bilateral lumbar paraspinals Duration (Minutes) 15 Target/Sweep Sweep High/Low High Patient Position Sitting Combined With Heat/Cold Hot Pack Ultrasound Therapy Treatment Back Patient Position Sidelying Coupling Medium 8 Frequency Setting (mHz) 1 Mode Setting Continuous Duty Cycle 100% Comments bilateral lumbar paraspinals PT-OP-S Aquatic Treatment Start: 05/10/19 13:53 Freq: Status: Active Protocol: Document 05/16/19 11:30 [facility] (Rec: 05/17/19 09:05 [facility] [id number]) Aquatics Treatment Pool Entry/Exit Pool Entry/Exit Method Stairs Assistance Independent Water Walking walking with directional changes Water Level Chest Level Level of Assistance Standby Assistance backward Water Level Chest Level Level of Assistance Standby Assistance march Water Level Chest Level Level of Assistance Standby Assistance forward, side Water Level Chest Level Level of Assistance Standby Assistance Verbal Cues Lower Extremity Exercises HS curl at wall Water Level Chest Level Comments holding on to wall, cues for posture knee flex/ext Reps/Duration 10x bilat Comments (with 90 deg hip flex) squats Reps/Duration 15x Comments cues for mm activation sequence circles Details pain-free ROM Reps/Duration 10x ea direction Comments mod UE support hip flex/ext Details gentle Equipment Ankle Floats Reps/Duration 10x Comments mod UE support hip ab/ad Details gentle w/cross over front and back Reps/Duration 10x Comments mod UE support heel toe raise Reps/Duration 10x Lower Extremity Stretches Single knee to chest bilat Details at wall Body Position Standing Water Level Chest Level Equipment Small Noodle Reps/Duration 2x30' HS, ITB, hip add Equipment Small Noodle Reps/Duration 2x [place] Activities [place] Activities Bicycle Other Activities deep water hang 10 min w/#2.5, pala foam float Equipment pala foam float Duration 15 minutes Comments minimal to no UE support with bicycle PT-OP-T Assessment and Plan Start: 05/10/19 13:53 Freq: Status: Active Protocol: Document 05/18/19 10:25 SAK (Rec: 05/18/19 14:51 SAK [id number]) Physical Therapy Assessment Goals range of motion Impairment stiffness throughout patient's trunk and hips Short Term Goal (STG) Instruct in HEP to address soft tissue mobility impairments STG Duration 06/21/19 Cash Management Clerk Goal (LTG) Patient to demonstrate improvements in overall flexibility throughout trunk and hips and be safe and independent with HEP and aquatic exercise program for long-term fitness and pain management. Strength Impairment weakness core and hips Short Term Goal (STG) Patient to begin land and aquatic exercise to address impairments in core and hip muscle strength STG Duration 06/21/19 Longterm Goal (LTG) Improve strength to at least 4 +/5 throughout trunk and LE's with patient demonstrating safety and independence with HEP and aquatic exercise program for long-term fitness and pain management. LTG Duration 08/09/19 Pain Impairment Pain level 8/10 Short Term Goal (STG) Decrease pain to no greater than 5/10 STG Duration 06/21/19 Cash Management Clerk Goal (LTG) Decrease pain to no greater than 3/10 LTG Duration 08/09/19 Gait Impairment Requires use of walker, unable to walk community distances Short Term Goal (STG) Patient able to walk for short community distances with use of cane without an increase in pain STG Duration 06/21/19 Longterm Goal (LTG) Patient able to ambulate without device for community distances. LTG Duration 08/09/19 Activity tolerance Impairment Oswestry disability index score 56% Short Term Goal (STG) Decrease Oswestry score to no greater than 40% to improve patient's tolerance for usual daily activities STG Duration 06/21/18 Cash Management Clerk Goal (LTG) Decrease Oswestry score to no greater than 25% with patient able to resume playing golf LTG Duration 08/09/19 Assessment Summary Assessment Fair tolerance for ther ex, good tolerance for manual treatment and modalities. Physical Therapy Plan Frequency and Duration Frequency of Treatment 2x/Week Duration of Treatment 12 Plan of Care Start Date 05/10/19 Plan of Care End Date 08/09/19 Therapeutic Interventions Therapeutic Interventions Aquatic Therapy Gait Training Home Exercise Program Manual Therapy Patient/Caregiver Education Self-Care/Home Management Soft Tissue Mobilization Taping Therapeutic Activities Therapeutic Exercises Modalities Cold Pack/Ice Massage Electric Stimulation Hot Packs Traction- Mechanical Ultrasound Next Visit Focus/Plan Next Note Type Treatment Note Next Visit Plan Progress ther ex with emphasis on core stabilization, flexibility, strengthening.
--- NOTE | 2019-05-25 15:11 | PT.OTN ---
Current Diagnoses Stiffness of unspecified joint, not elsewhere classified (05/25/19) Radiculopathy, lumbar region (05/25/19) Low back pain (05/25/19) Abnormal posture (05/25/19) Weakness (05/25/19) Physical Therapy Treatment Note PT-OP-A Visit Information Start: 05/10/19 13:53 Freq: Status: Active Protocol: Document 05/25/19 08:03 SAK (Rec: 05/25/19 15:10 [facility] [id number]) Out-Patient Physical Therapy Visit Information Visit Information Visit Type Treatment Note Visit Start Time 08:03 Visit Stop Time 09:03 Total Visit Minutes 60 Visit Number 4 Number of SOCIAL SERVICES ANALYST Visits 0 Precautions Precautions cardiac cervical fusion arthritis HTN PT-OP-B Current Condition Start: 05/10/19 13:53 Freq: Status: Active Protocol: Document 05/10/19 13:53 SAK (Rec: 05/10/19 14:33 SAK [id number]) Current Condition History of Current Condition Onset Date 07/20/19 Current Complaints worsening LBP, inability to tolerate upright activity History of Current Condition Since last seen LE pain into right LE just posterior lateral right knee instead of all the way to his foot, but reports an increase in back pain. LBP better when sits or lays down. For neck pain using compounded ointment. Went to pain clinic last week; met with physical therapist at who wants to consult with this PT. Patient states that therapist agreed with him doing aquatic therapy . Had x-ray today after lunging over car console to reach into passenger side floor, reports right sided thoracic pain. X-ray negative . Saw Dr. Dang last week. Pain medication use same. Sleeping only on left side since injuring ribs on right, so left side hurting. Not doing any HEP. Bilateral foot numbness right greater than left. Can't walk any significant distances due to pain with standing and walking Prior Treatments and Tests L45 laminectomy 07/20/19 prior lumbar laminectomy cervical fusion Future Testing and Treatments Planned Reports his 3 physicians to come up with plan for any further treatments or procedures Treatment Goals Patient/Caregiver Goals Be able to walk community distances without increase in pain, be able to golf. Prior Functional Status Baseline Function- ADL's Modified Independent Baseline Function- Mobility Modified Independent Baseline Function- Gait Independent without device Baseline Function- Work/School retored Baseline Function- Recreation/Hobbies frequent golfing Current Functional Impairments (Reported) Functional Limitations- ADL's independent but painful Functional Limitations- Mobility/Gait limited primarily to household due to need to sit frequently due to pain Functional Limitations- Work/School retired Functional Limitations- Recreation/ unable to golf or take walks Hobbies due to pain PT-OP-C Subjective Start: 05/10/19 13:53 Freq: Status: Active Protocol: Document 05/25/19 08:03 [facility] (Rec: 05/25/19 08:25 [facility] [id number]) OP-PT Subjective Patient Comments Patient Comments Hasn't used walker since last week. Posterior thigh and low back pain still bad, though feeling more energetic. Unable to put melanie in ground or retrieve ball from hole with golf, also minimal tolerance for standing PT-OP-J Posture/Palpation/Skin Start: 05/10/19 13:53 Freq: Status: Active Protocol: Document 05/10/19 13:53 [facility] (Rec: 05/15/19 17:29 [facility] [id number]) Posture Evaluation Position Standing Head/C-Spine Posture Forward Head L-Spine Posture Flattened Shoulder Posture (L) Rounded (R) Rounded Hip Posture (L) Externally Rotated (R) Externally Rotated Palpation Assessment Location diana lumbar paraspinals Palpation Findings Soft Tissue Tightness Muscle Guarding Tenderness Palpation Details tight diana, right greater than left PT-OP-K Range of Motion Start: 05/10/19 13:53 Freq: Status: Active Protocol: Document 05/10/19 13:53 [facility] (Rec: 05/15/19 17:29 [facility] [id number]) Lumbar Spine Range of Motion Lumbar Spine Active Degrees Testing Position Standing Flexion 20 Rotation Left 15 Rotation Right 15 Lateral Flexion Left 25 Lateral Flexion Right 25 ROM Limitations Soft Tissue Tightness Pain Comments -10 deg ext with c/o increased pain Hip Goniometric Range of Motion Hip Left Flexion w/Knee Flexed 105 Straight Leg Raise 45 Internal Rotation 25 External Rotation 70 Right Flexion w/Knee Flexed 110 Straight Leg Raise 45 Internal Rotation 15 External Rotation 20 Hip ROM Limitations Comments -5 diana hip ext Ankle and Foot Goniometric Range of Motion Ankle and Foot diana Dorsiflexion with Knee Flexed 0 Ankle and Foot ROM Limitations ROM Limitations Soft Tissue Tightness Comments -5 ankle df with knee extended PT-OP-L Special Tests Start: 05/10/19 13:53 Freq: Status: Active Protocol: Document 05/10/19 13:53 [facility] (Rec: 05/15/19 17:29 [facility] [id number]) Special Tests Lumbar Spine Special Tests Manual Traction Test Results positive for increasing pain Horacio Test Results positive for hip flexor tightness diana Straight Leg Raise Test Results positive for muscle tightness not radicular pain Compression Test Results positive right Comments pain radiating to right posterior knee Hip Special Tests Scour Test Test Results negative diana PT-OP-M Strength Start: 05/10/19 13:53 Freq: Status: Active Protocol: Document 05/10/19 13:53 [facility] (Rec: 05/15/19 17:29 [facility] [id number]) Trunk Strength Trunk Manual Muscle Testing Flexion 3- Fair- Extension 2+ Poor+ Hip Strength Hip Manual Muscle Testing Left Flexion (L2) 4 Good Extension (S1) 2+ Poor+ Abduction 3- Fair- External Rotation 3+ Fair+ Internal Rotation 4- Good- Right Flexion (L2) 4 Good Extension (S1) 2+ Poor+ Abduction 3- Fair- External Rotation 3+ Fair+ Internal Rotation 4- Good- Knee Strength Knee Manual Muscle Testing diana Flexion (S2) 4+ Good+ Extension (L3) 4+ Good+ Ankle/Foot Strength Ankle and Foot Manual Muscle Testing Left Dorsiflexion (L4) 4+ Good+ Right Dorsiflexion (L4) 4 Good Plantarflexion (S1) 4 Good Toe Strength Toe Manual Muscle Testing Left Great Toe Flexion 4+ Good+ Extension 4+ Good+ Right Great Toe Flexion 4 Good Extension 4 Good PT-OP-Q Treatments Start: 05/10/19 13:53 Freq: Status: Active Protocol: Document 05/25/19 08:03 [facility] (Rec: 05/25/19 08:25 [facility] [id number]) Cardio Equipment Recumbent Stepper (Sci-Fit) Duration (Minutes) 11 Resistance 1 Seat Position 12 Gym Equipment Shuttle Recovery Bilateral Squats Resistance 50 Shuttle Recovery Platform Stable Reps/Time 10x3 Therapeutic Exercises Supine Exercises HC stretch Reps/Minutes 2x Comments manual IT band stretch Reps/Minutes 2x Comments gentle, SKTC Reps/Minutes 2x Comments opp LE straight for hip flexor stretch HS stretch Reps/Minutes 2x Comments manual Sitting Exercises row, sh ext Equipment Used L2 TB Reps/Minutes 10x Standing Exercises closed chain HS stretch Reps/Minutes 2x Comments forearms on thighs Manual Therapy Treatment Soft Tissue Mobilization hamstrings Body Position Sidelying right quadricep Mobilization Type Myofascial Release Rolling Strumming Intensity/Depth Moderate IT band Body Location right ITB Mobilization Type Myofascial Release Rolling Strumming Intensity/Depth Moderate PT-OP-R Modalities Start: 05/10/19 13:53 Freq: Status: Active Protocol: Document 05/25/19 08:03 [facility] (Rec: 05/25/19 15:10 [facility] [id number]) Electric Stimulation Electric Stimulation Interferential Current (IFC) Body Location bilateral lumbar paraspinals Duration (Minutes) 15 Target/Sweep Sweep High/Low High Patient Position Sitting Combined With Heat/Cold Hot Pack Ultrasound Therapy Treatment Back Patient Position Sidelying Coupling Medium 8 Frequency Setting (mHz) 1 Mode Setting Continuous Duty Cycle 100% Comments bilateral lumbar paraspinals PT-OP-S Aquatic Treatment Start: 05/10/19 13:53 Freq: Status: Active Protocol: Document 05/16/19 11:30 [facility] (Rec: 05/17/19 09:05 [facility] [id number]) Aquatics Treatment Pool Entry/Exit Pool Entry/Exit Method Stairs Assistance Independent Water Walking walking with directional changes Water Level Chest Level Level of Assistance Standby Assistance backward Water Level Chest Level Level of Assistance Standby Assistance march Water Level Chest Level Level of Assistance Standby Assistance forward, side Water Level Chest Level Level of Assistance Standby Assistance Verbal Cues Lower Extremity Exercises HS curl at wall Water Level Chest Level Comments holding on to wall, cues for posture knee flex/ext Reps/Duration 10x bilat Comments (with 90 deg hip flex) squats Reps/Duration 15x Comments cues for mm activation sequence circles Details pain-free ROM Reps/Duration 10x ea direction Comments mod UE support hip flex/ext Details gentle Equipment Ankle Floats Reps/Duration 10x Comments mod UE support hip ab/ad Details gentle w/cross over front and back Reps/Duration 10x Comments mod UE support heel toe raise Reps/Duration 10x Lower Extremity Stretches Single knee to chest bilat Details at wall Body Position Standing Water Level Chest Level Equipment Small Noodle Reps/Duration 2x30' HS, ITB, hip add Equipment Small Noodle Reps/Duration 2x [place] Activities [place] Activities Bicycle Other Activities deep water hang 10 min w/#2.5, [place] foam float Equipment [place] foam float Duration 15 minutes Comments minimal to no UE support with bicycle PT-OP-T Assessment and Plan Start: 05/10/19 13:53 Freq: Status: Active Protocol: Document 05/25/19 08:03 RUSTY (Rec: 05/25/19 15:10 [facility] [id number]) Physical Therapy Assessment Goals range of motion Impairment stiffness throughout patient's trunk and hips Short Term Goal (STG) Instruct in HEP to address soft tissue mobility impairments STG Duration 06/21/19 Irrigation Service Technician Goal (LTG) Patient to demonstrate improvements in overall flexibility throughout trunk and hips and be safe and independent with HEP and aquatic exercise program for long-term fitness and pain management. Strength Impairment weakness core and hips Short Term Goal (STG) Patient to begin land and aquatic exercise to address impairments in core and hip muscle strength STG Duration 06/21/19 Intermediate Goal (LTG) Improve strength to at least 4 +/5 throughout trunk and LE's with patient demonstrating safety and independence with HEP and aquatic exercise program for long-term fitness and pain management. LTG Duration 08/09/19 Pain Impairment Pain level 8/10 Short Term Goal (STG) Decrease pain to no greater than 5/10 STG Duration 06/21/19 Irrigation Service Technician Goal (LTG) Decrease pain to no greater than 3/10 LTG Duration 08/09/19 Gait Impairment Requires use of walker, unable to walk community distances Short Term Goal (STG) Patient able to walk for short community distances with use of cane without an increase in pain STG Duration 06/21/19 Irrigation Service Technician Goal (LTG) Patient able to ambulate without device for community distances. LTG Duration 08/09/19 Activity tolerance Impairment Oswestry disability index score 56% Short Term Goal (STG) Decrease Oswestry score to no greater than 40% to improve patient's tolerance for usual daily activities STG Duration 06/21/18 Intermediate Goal (LTG) Decrease Oswestry score to no greater than 25% with patient able to resume playing golf LTG Duration 08/09/19 Assessment Summary Assessment IT band very tender, active knee flex not painful but palpable tightness and tender right HS with decreased mobility. Physical Therapy Plan Frequency and Duration Frequency of Treatment 2x/Week Duration of Treatment 12 Plan of Care Start Date 05/10/19 Plan of Care End Date 08/09/19 Therapeutic Interventions Therapeutic Interventions Aquatic Therapy Gait Training Home Exercise Program Manual Therapy Patient/Caregiver Education Self-Care/Home Management Soft Tissue Mobilization Taping Therapeutic Activities Therapeutic Exercises Modalities Cold Pack/Ice Massage Electric Stimulation Hot Packs Traction- Mechanical Ultrasound Next Visit Focus/Plan Next Note Type Treatment Note Next Visit Plan Aquatic therapy next session. Evaluate response to manual therapy this session.
--- NOTE | 2019-05-27 15:25 | PT.OTN ---
Current Diagnoses Stiffness of unspecified joint, not elsewhere classified (05/27/19) Radiculopathy, lumbar region (05/27/19) Low back pain (05/27/19) Abnormal posture (05/27/19) Weakness (05/27/19) Physical Therapy Treatment Note PT-OP-A Visit Information Start: 05/10/19 13:53 Freq: Status: Active Protocol: Document 05/27/19 15:18 SAK (Rec: 05/27/19 15:22 SAK [id number]) Out-Patient Physical Therapy Visit Information Visit Information Visit Type Treatment Note Visit Start Time 10:15 Visit Stop Time 11:00 Total Visit Minutes 45 Visit Number 5 Number of RADIO RECORDER Visits 0 Evaluation Information Evaluation Date 05/10/19 Precautions Precautions cardiac cervical fusion arthritis HTN PT-OP-B Current Condition Start: 05/10/19 13:53 Freq: Status: Active Protocol: Document 05/10/19 13:53 SAK (Rec: 05/10/19 14:33 SAK [id number]) Current Condition History of Current Condition Onset Date 07/20/19 Current Complaints worsening LBP, inability to tolerate upright activity History of Current Condition Since last seen LE pain into right LE just posterior lateral right knee instead of all the way to his foot, but reports an increase in back pain. LBP better when sits or lays down. For neck pain using compounded ointment. Went to pain clinic last week; met with physical therapist at who wants to consult with this PT. Patient states that therapist agreed with him doing aquatic therapy . Had x-ray today after lunging over car console to reach into passenger side floor, reports right sided thoracic pain. X-ray negative . Saw Dr. Dang last week. Pain medication use same. Sleeping only on left side since injuring ribs on right, so left side hurting. Not doing any HEP. Bilateral foot numbness right greater than left. Can't walk any significant distances due to pain with standing and walking Prior Treatments and Tests L45 laminectomy 07/20/19 prior lumbar laminectomy cervical fusion Future Testing and Treatments Planned Reports his 3 physicians to come up with plan for any further treatments or procedures Treatment Goals Patient/Caregiver Goals Be able to walk community distances without increase in pain, be able to golf. Prior Functional Status Baseline Function- ADL's Modified Independent Baseline Function- Mobility Modified Independent Baseline Function- Gait Independent without device Baseline Function- Work/School retored Baseline Function- Recreation/Hobbies frequent golfing Current Functional Impairments (Reported) Functional Limitations- ADL's independent but painful Functional Limitations- Mobility/Gait limited primarily to household due to need to sit frequently due to pain Functional Limitations- Work/School retired Functional Limitations- Recreation/ unable to golf or take walks Hobbies due to pain PT-OP-C Subjective Start: 05/10/19 13:53 Freq: Status: Active Protocol: Document 05/27/19 15:18 [facility] (Rec: 05/27/19 15:22 [facility] [id number]) OP-PT Subjective Patient Comments Patient Comments Soreness in mid back also today. Tolerated last PT session ok, did HEP yesterday. Hoping to do a little golfing this weekend, got new putter PT-OP-J Posture/Palpation/Skin Start: 05/10/19 13:53 Freq: Status: Active Protocol: Document 05/10/19 13:53 [facility] (Rec: 05/15/19 17:29 [facility] [id number]) Posture Evaluation Position Standing Head/C-Spine Posture Forward Head L-Spine Posture Flattened Shoulder Posture (L) Rounded (R) Rounded Hip Posture (L) Externally Rotated (R) Externally Rotated Palpation Assessment Location diana lumbar paraspinals Palpation Findings Soft Tissue Tightness Muscle Guarding Tenderness Palpation Details tight diana, right greater than left PT-OP-K Range of Motion Start: 05/10/19 13:53 Freq: Status: Active Protocol: Document 05/10/19 13:53 [facility] (Rec: 05/15/19 17:29 [facility] [id number]) Lumbar Spine Range of Motion Lumbar Spine Active Degrees Testing Position Standing Flexion 20 Rotation Left 15 Rotation Right 15 Lateral Flexion Left 25 Lateral Flexion Right 25 ROM Limitations Soft Tissue Tightness Pain Comments -10 deg ext with c/o increased pain Hip Goniometric Range of Motion Hip Left Flexion w/Knee Flexed 105 Straight Leg Raise 45 Internal Rotation 25 External Rotation 70 Right Flexion w/Knee Flexed 110 Straight Leg Raise 45 Internal Rotation 15 External Rotation 20 Hip ROM Limitations Comments -5 diana hip ext Ankle and Foot Goniometric Range of Motion Ankle and Foot diana Dorsiflexion with Knee Flexed 0 Ankle and Foot ROM Limitations ROM Limitations Soft Tissue Tightness Comments -5 ankle df with knee extended PT-OP-L Special Tests Start: 05/10/19 13:53 Freq: Status: Active Protocol: Document 05/10/19 13:53 [facility] (Rec: 05/15/19 17:29 [facility] [id number]) Special Tests Lumbar Spine Special Tests Manual Traction Test Results positive for increasing pain Horacio Test Results positive for hip flexor tightness diana Straight Leg Raise Test Results positive for muscle tightness not radicular pain Compression Test Results positive right Comments pain radiating to right posterior knee Hip Special Tests Scour Test Test Results negative diana PT-OP-M Strength Start: 05/10/19 13:53 Freq: Status: Active Protocol: Document 05/10/19 13:53 [facility] (Rec: 05/15/19 17:29 [facility] [id number]) Trunk Strength Trunk Manual Muscle Testing Flexion 3- Fair- Extension 2+ Poor+ Hip Strength Hip Manual Muscle Testing Left Flexion (L2) 4 Good Extension (S1) 2+ Poor+ Abduction 3- Fair- External Rotation 3+ Fair+ Internal Rotation 4- Good- Right Flexion (L2) 4 Good Extension (S1) 2+ Poor+ Abduction 3- Fair- External Rotation 3+ Fair+ Internal Rotation 4- Good- Knee Strength Knee Manual Muscle Testing diana Flexion (S2) 4+ Good+ Extension (L3) 4+ Good+ Ankle/Foot Strength Ankle and Foot Manual Muscle Testing Left Dorsiflexion (L4) 4+ Good+ Right Dorsiflexion (L4) 4 Good Plantarflexion (S1) 4 Good Toe Strength Toe Manual Muscle Testing Left Great Toe Flexion 4+ Good+ Extension 4+ Good+ Right Great Toe Flexion 4 Good Extension 4 Good PT-OP-Q Treatments Start: 05/10/19 13:53 Freq: Status: Active Protocol: Document 05/25/19 08:03 [facility] (Rec: 05/25/19 08:25 [facility] [id number]) Cardio Equipment Recumbent Stepper (Sci-Fit) Duration (Minutes) 11 Resistance 1 Seat Position 12 Gym Equipment Shuttle Recovery Bilateral Squats Resistance 50 Shuttle Recovery Platform Stable Reps/Time 10x3 Therapeutic Exercises Supine Exercises HC stretch Reps/Minutes 2x Comments manual IT band stretch Reps/Minutes 2x Comments gentle, SKTC Reps/Minutes 2x Comments opp LE straight for hip flexor stretch HS stretch Reps/Minutes 2x Comments manual Sitting Exercises row, sh ext Equipment Used L2 TB Reps/Minutes 10x Standing Exercises closed chain HS stretch Reps/Minutes 2x Comments forearms on thighs Manual Therapy Treatment Soft Tissue Mobilization hamstrings Body Position Sidelying right quadricep Mobilization Type Myofascial Release Rolling Strumming Intensity/Depth Moderate IT band Body Location right ITB Mobilization Type Myofascial Release Rolling Strumming Intensity/Depth Moderate PT-OP-R Modalities Start: 05/10/19 13:53 Freq: Status: Active Protocol: Document 05/25/19 08:03 [facility] (Rec: 05/25/19 15:10 [facility] [id number]) Electric Stimulation Electric Stimulation Interferential Current (IFC) Body Location bilateral lumbar paraspinals Duration (Minutes) 15 Target/Sweep Sweep High/Low High Patient Position Sitting Combined With Heat/Cold Hot Pack Ultrasound Therapy Treatment Back Patient Position Sidelying Coupling Medium 8 Frequency Setting (mHz) 1 Mode Setting Continuous Duty Cycle 100% Comments bilateral lumbar paraspinals PT-OP-S Aquatic Treatment Start: 05/10/19 13:53 Freq: Status: Active Protocol: Document 05/27/19 15:18 [facility] (Rec: 05/27/19 15:25 [facility] [id number]) Aquatics Treatment Pool Entry/Exit Pool Entry/Exit Method Stairs Assistance Independent Water Walking walking with directional changes Water Level Chest Level Level of Assistance Standby Assistance backward Water Level Chest Level Level of Assistance Standby Assistance march Water Level Chest Level Level of Assistance Standby Assistance forward, side Water Level Chest Level Level of Assistance Standby Assistance Verbal Cues Lower Extremity Exercises HS curl at wall Water Level Chest Level Comments holding on to wall, cues for posture knee flex/ext Reps/Duration 10x bilat Comments (with 90 deg hip flex) Lower Extremity Stretches quad and hip flex Body Position Standing Water Level Chest Level Equipment Small Noodle Single knee to chest bilat Details at wall Body Position Standing Water Level Chest Level Equipment Small Noodle Reps/Duration 2x30' HS, ITB, hip add Body Position Standing Water Level Chest Level Equipment Small Noodle Reps/Duration 2x [place] Activities Anderson Activities Bicycle Other Activities deep water hang 10 min w/#5, [place] foam float bicycle with 2# diana x 15 min Equipment [place] foam float, neck float Duration 15 minutes Comments minimal to no UE support with bicycle PT-OP-T Assessment and Plan Start: 05/10/19 13:53 Freq: Status: Active Protocol: Document 05/27/19 15:18 RUSTY (Rec: 05/27/19 15:22 [facility] [id number]) Physical Therapy Assessment Goals range of motion Impairment stiffness throughout patient's trunk and hips Short Term Goal (STG) Instruct in HEP to address soft tissue mobility impairments STG Duration 06/21/19 Work Order Detailer Goal (LTG) Patient to demonstrate improvements in overall flexibility throughout trunk and hips and be safe and independent with HEP and aquatic exercise program for long-term fitness and pain management. Strength Impairment weakness core and hips Short Term Goal (STG) Patient to begin land and aquatic exercise to address impairments in core and hip muscle strength STG Duration 06/21/19 Work Order Detailer Goal (LTG) Improve strength to at least 4 +/5 throughout trunk and LE's with patient demonstrating safety and independence with HEP and aquatic exercise program for long-term fitness and pain management. LTG Duration 08/09/19 Pain Impairment Pain level 8/10 Short Term Goal (STG) Decrease pain to no greater than 5/10 STG Duration 06/21/19 Work Order Detailer Goal (LTG) Decrease pain to no greater than 3/10 LTG Duration 08/09/19 Gait Impairment Requires use of walker, unable to walk community distances Short Term Goal (STG) Patient able to walk for short community distances with use of cane without an increase in pain STG Duration 06/21/19 Nursing Home Goal (LTG) Patient able to ambulate without device for community distances. LTG Duration 08/09/19 Activity tolerance Impairment Oswestry disability index score 56% Short Term Goal (STG) Decrease Oswestry score to no greater than 40% to improve patient's tolerance for usual daily activities STG Duration 06/21/18 Nursing Home Goal (LTG) Decrease Oswestry score to no greater than 25% with patient able to resume playing golf LTG Duration 08/09/19 Assessment Summary Assessment Patient able to tolerate 45 min aquatic PT session well, vertical entire session as compared to immediate increase in pain on land when stands and need to sit within a couple min. Physical Therapy Plan Frequency and Duration Frequency of Treatment 2x/Week Duration of Treatment 12 Plan of Care Start Date 05/10/19 Plan of Care End Date 08/09/19 Therapeutic Interventions Therapeutic Interventions Aquatic Therapy Gait Training Home Exercise Program Manual Therapy Patient/Caregiver Education Self-Care/Home Management Soft Tissue Mobilization Taping Therapeutic Activities Therapeutic Exercises Modalities Cold Pack/Ice Massage Electric Stimulation Hot Packs Traction- Mechanical Ultrasound Next Visit Focus/Plan Next Note Type Treatment Note Next Visit Plan Progress aquatic and land- based PT to decrease pain, improve strength, core stab, flexibility for improved function and quality of life.
--- NOTE | 2019-06-01 16:24 | PT.OTN ---
Current Diagnoses Stiffness of unspecified joint, not elsewhere classified (06/01/19) Radiculopathy, lumbar region (06/01/19) Low back pain (06/01/19) Abnormal posture (06/01/19) Weakness (06/01/19) Physical Therapy Treatment Note PT-OP-A Visit Information Start: 05/10/19 13:53 Freq: Status: Active Protocol: Document 06/01/19 15:21 SAK (Rec: 06/01/19 15:52 SAK [id number]) Out-Patient Physical Therapy Visit Information Visit Information Visit Type Treatment Note Visit Start Time 10:15 Visit Stop Time 11:00 Total Visit Minutes 60 Visit Number 56 Number of HEATING AND COOLING TECHNICIAN Visits 0 Evaluation Information Evaluation Date 05/10/19 Precautions Precautions cardiac cervical fusion arthritis HTN PT-OP-B Current Condition Start: 05/10/19 13:53 Freq: Status: Active Protocol: Document 05/10/19 13:53 SAK (Rec: 05/10/19 14:33 SAK [id number]) Current Condition History of Current Condition Onset Date 07/20/19 Current Complaints worsening LBP, inability to tolerate upright activity History of Current Condition Since last seen LE pain into right LE just posterior lateral right knee instead of all the way to his foot, but reports an increase in back pain. LBP better when sits or lays down. For neck pain using compounded ointment. Went to pain clinic last week; met with physical therapist at who wants to consult with this PT. Patient states that therapist agreed with him doing aquatic therapy . Had x-ray today after lunging over car console to reach into passenger side floor, reports right sided thoracic pain. X-ray negative . Saw Dr. Dang last week. Pain medication use same. Sleeping only on left side since injuring ribs on right, so left side hurting. Not doing any HEP. Bilateral foot numbness right greater than left. Can't walk any significant distances due to pain with standing and walking Prior Treatments and Tests L45 laminectomy 07/20/19 prior lumbar laminectomy cervical fusion Future Testing and Treatments Planned Reports his 3 physicians to come up with plan for any further treatments or procedures Treatment Goals Patient/Caregiver Goals Be able to walk community distances without increase in pain, be able to golf. Prior Functional Status Baseline Function- ADL's Modified Independent Baseline Function- Mobility Modified Independent Baseline Function- Gait Independent without device Baseline Function- Work/School retored Baseline Function- Recreation/Hobbies frequent golfing Current Functional Impairments (Reported) Functional Limitations- ADL's independent but painful Functional Limitations- Mobility/Gait limited primarily to household due to need to sit frequently due to pain Functional Limitations- Work/School retired Functional Limitations- Recreation/ unable to golf or take walks Hobbies due to pain PT-OP-C Subjective Start: 05/10/19 13:53 Freq: Status: Active Protocol: Document 06/01/19 15:21 [facility] (Rec: 06/01/19 15:52 [facility] [id number]) OP-PT Subjective Patient Comments Patient Comments Poor sleep last night; only about 3 hours after very busy day yesterday, maybe due to stress per patient. [place] last session very helpful PT-OP-J Posture/Palpation/Skin Start: 05/10/19 13:53 Freq: Status: Active Protocol: Document 05/10/19 13:53 [facility] (Rec: 05/15/19 17:29 [facility] [id number]) Posture Evaluation Position Standing Head/C-Spine Posture Forward Head L-Spine Posture Flattened Shoulder Posture (L) Rounded (R) Rounded Hip Posture (L) Externally Rotated (R) Externally Rotated Palpation Assessment Location diana lumbar paraspinals Palpation Findings Soft Tissue Tightness Muscle Guarding Tenderness Palpation Details tight diana, right greater than left PT-OP-K Range of Motion Start: 05/10/19 13:53 Freq: Status: Active Protocol: Document 05/10/19 13:53 [facility] (Rec: 05/15/19 17:29 [facility] [id number]) Lumbar Spine Range of Motion Lumbar Spine Active Degrees Testing Position Standing Flexion 20 Rotation Left 15 Rotation Right 15 Lateral Flexion Left 25 Lateral Flexion Right 25 ROM Limitations Soft Tissue Tightness Pain Comments -10 deg ext with c/o increased pain Hip Goniometric Range of Motion Hip Left Flexion w/Knee Flexed 105 Straight Leg Raise 45 Internal Rotation 25 External Rotation 70 Right Flexion w/Knee Flexed 110 Straight Leg Raise 45 Internal Rotation 15 External Rotation 20 Hip ROM Limitations Comments -5 diana hip ext Ankle and Foot Goniometric Range of Motion Ankle and Foot diana Dorsiflexion with Knee Flexed 0 Ankle and Foot ROM Limitations ROM Limitations Soft Tissue Tightness Comments -5 ankle df with knee extended PT-OP-L Special Tests Start: 05/10/19 13:53 Freq: Status: Active Protocol: Document 05/10/19 13:53 [facility] (Rec: 05/15/19 17:29 [facility] [id number]) Special Tests Lumbar Spine Special Tests Manual Traction Test Results positive for increasing pain Horacio Test Results positive for hip flexor tightness diana Straight Leg Raise Test Results positive for muscle tightness not radicular pain Compression Test Results positive right Comments pain radiating to right posterior knee Hip Special Tests Scour Test Test Results negative diana PT-OP-M Strength Start: 05/10/19 13:53 Freq: Status: Active Protocol: Document 05/10/19 13:53 [facility] (Rec: 05/15/19 17:29 [facility] [id number]) Trunk Strength Trunk Manual Muscle Testing Flexion 3- Fair- Extension 2+ Poor+ Hip Strength Hip Manual Muscle Testing Left Flexion (L2) 4 Good Extension (S1) 2+ Poor+ Abduction 3- Fair- External Rotation 3+ Fair+ Internal Rotation 4- Good- Right Flexion (L2) 4 Good Extension (S1) 2+ Poor+ Abduction 3- Fair- External Rotation 3+ Fair+ Internal Rotation 4- Good- Knee Strength Knee Manual Muscle Testing diana Flexion (S2) 4+ Good+ Extension (L3) 4+ Good+ Ankle/Foot Strength Ankle and Foot Manual Muscle Testing Left Dorsiflexion (L4) 4+ Good+ Right Dorsiflexion (L4) 4 Good Plantarflexion (S1) 4 Good Toe Strength Toe Manual Muscle Testing Left Great Toe Flexion 4+ Good+ Extension 4+ Good+ Right Great Toe Flexion 4 Good Extension 4 Good PT-OP-Q Treatments Start: 05/10/19 13:53 Freq: Status: Active Protocol: Document 06/01/19 15:21 [facility] (Rec: 06/01/19 15:52 [facility] [id number]) Cardio Equipment Recumbent Stepper (Sci-Fit) Duration (Minutes) 11 Resistance 2 Seat Position 12 Gym Equipment Shuttle Recovery Bilateral Squats Resistance 50 Shuttle Recovery Platform Stable Reps/Time 10x3 Therapeutic Exercises Supine Exercises HC stretch Reps/Minutes 2x Comments manual IT band stretch Reps/Minutes 2x Comments gentle, SKTC Reps/Minutes 2x Comments opp LE straight for hip flexor stretch HS stretch Reps/Minutes 2x Comments manual Sitting Exercises row, sh ext Equipment Used L2 TB Reps/Minutes 10x Standing Exercises closed chain HS stretch Reps/Minutes 2x Comments forearms on thighs Manual Therapy Treatment Soft Tissue Mobilization hamstrings Body Position Sidelying right quadricep Mobilization Type Myofascial Release Rolling Strumming Intensity/Depth Moderate IT band Body Location right ITB Mobilization Type Myofascial Release Rolling Strumming Intensity/Depth Moderate PT-OP-R Modalities Start: 05/10/19 13:53 Freq: Status: Active Protocol: Document 06/01/19 15:21 [facility] (Rec: 06/01/19 15:52 [facility] [id number]) Electric Stimulation Electric Stimulation Interferential Current (IFC) Body Location bilateral lumbar paraspinals Duration (Minutes) 15 Target/Sweep Sweep High/Low High Patient Position Sitting Combined With Heat/Cold Hot Pack Ultrasound Therapy Treatment Back Patient Position Sidelying Coupling Medium 8 Frequency Setting (mHz) 1 Mode Setting Continuous Duty Cycle 100% Comments bilateral lumbar paraspinals PT-OP-S Aquatic Treatment Start: 05/10/19 13:53 Freq: Status: Active Protocol: Document 05/27/19 15:18 [facility] (Rec: 05/27/19 15:25 [facility] [id number]) Aquatics Treatment Pool Entry/Exit Pool Entry/Exit Method Stairs Assistance Independent Water Walking walking with directional changes Water Level Chest Level Level of Assistance Standby Assistance backward Water Level Chest Level Level of Assistance Standby Assistance march Water Level Chest Level Level of Assistance Standby Assistance forward, side Water Level Chest Level Level of Assistance Standby Assistance Verbal Cues Lower Extremity Exercises HS curl at wall Water Level Chest Level Comments holding on to wall, cues for posture knee flex/ext Reps/Duration 10x bilat Comments (with 90 deg hip flex) Lower Extremity Stretches quad and hip flex Body Position Standing Water Level Chest Level Equipment Small Noodle Single knee to chest bilat Details at wall Body Position Standing Water Level Chest Level Equipment Small Noodle Reps/Duration 2x30' HS, ITB, hip add Body Position Standing Water Level Chest Level Equipment Small Noodle Reps/Duration 2x [place] Activities [place] Activities Bicycle Other Activities deep water hang 10 min w/#5, [place] foam float bicycle with 2# diana x 15 min Equipment [place] foam float, neck float Duration 15 minutes Comments minimal to no UE support with bicycle PT-OP-T Assessment and Plan Start: 05/10/19 13:53 Freq: Status: Active Protocol: Document 06/01/19 15:21 [facility] (Rec: 06/01/19 15:52 [facility] [id number]) Physical Therapy Assessment Goals range of motion Impairment stiffness throughout patient's trunk and hips Short Term Goal (STG) Instruct in HEP to address soft tissue mobility impairments STG Duration 06/21/19 Linux Admin Goal (LTG) Patient to demonstrate improvements in overall flexibility throughout trunk and hips and be safe and independent with HEP and aquatic exercise program for long-term fitness and pain management. Strength Impairment weakness core and hips Short Term Goal (STG) Patient to begin land and aquatic exercise to address impairments in core and hip muscle strength STG Duration 06/21/19 Linux Admin Goal (LTG) Improve strength to at least 4 +/5 throughout trunk and LE's with patient demonstrating safety and independence with HEP and aquatic exercise program for long-term fitness and pain management. LTG Duration 08/09/19 Pain Impairment Pain level 8/10 Short Term Goal (STG) Decrease pain to no greater than 5/10 STG Duration 06/21/19 Linux Admin Goal (LTG) Decrease pain to no greater than 3/10 LTG Duration 08/09/19 Gait Impairment Requires use of walker, unable to walk community distances Short Term Goal (STG) Patient able to walk for short community distances with use of cane without an increase in pain STG Duration 06/21/19 Linux Admin Goal (LTG) Patient able to ambulate without device for community distances. LTG Duration 08/09/19 Activity tolerance Impairment Oswestry disability index score 56% Short Term Goal (STG) Decrease Oswestry score to no greater than 40% to improve patient's tolerance for usual daily activities STG Duration 06/21/18 Linux Admin Goal (LTG) Decrease Oswestry score to no greater than 25% with patient able to resume playing golf LTG Duration 08/09/19 Assessment Summary Assessment Despite poor sleep patient demonstrating improved energy level and exercise tolerance. Reported increased ability to put melanie in ground for golf. Physical Therapy Plan Frequency and Duration Frequency of Treatment 2x/Week Duration of Treatment 12 Plan of Care Start Date 05/10/19 Plan of Care End Date 08/09/19 Therapeutic Interventions Therapeutic Interventions Aquatic Therapy Gait Training Home Exercise Program Manual Therapy Patient/Caregiver Education Self-Care/Home Management Soft Tissue Mobilization Taping Therapeutic Activities Therapeutic Exercises Modalities Cold Pack/Ice Massage Electric Stimulation Hot Packs Traction- Mechanical Ultrasound Next Visit Focus/Plan Next Note Type Treatment Note Next Visit Plan Continue PT per POC
--- NOTE | 2019-06-13 11:30 | PT.OTN ---
Current Diagnoses Stiffness of unspecified joint, not elsewhere classified (06/13/19) Radiculopathy, lumbar region (06/13/19) Low back pain (06/13/19) Abnormal posture (06/13/19) Weakness (06/13/19) Physical Therapy Treatment Note PT-OP-A Visit Information Start: 05/10/19 13:53 Freq: Status: Active Protocol: Document 06/13/19 11:30 SAK (Rec: 06/14/19 09:18 SAK [id number]) Out-Patient Physical Therapy Visit Information Visit Information Visit Type Treatment Note Visit Start Time 11:30 Visit Stop Time 12:15 Total Visit Minutes 45 Visit Number 7 Number of [employer]OD [employer] TE[employer]ER Visits 0 Evaluation Information Evaluation Date 05/10/19 Precautions Precautions cardiac cervical fusion arthritis HTN PT-OP-B Current Condition Start: 05/10/19 13:53 Freq: Status: Active Protocol: Document 05/10/19 13:53 SAK (Rec: 05/10/19 14:33 SAK [id number]) Current Condition History of Current Condition Onset Date 07/20/19 Current Complaints worsening LBP, inability to tolerate upright activity History of Current Condition Since last seen LE pain into right LE just posterior lateral right knee instead of all the way to his foot, but reports an increase in back pain. LBP better when sits or lays down. For neck pain using compounded ointment. Went to pain clinic last week; met with physical therapist at who wants to consult with this PT. Patient states that therapist agreed with him doing aquatic therapy . Had x-ray today after lunging over car console to reach into passenger side floor, reports right sided thoracic pain. X-ray negative . Saw Dr. Dang last week. Pain medication use same. Sleeping only on left side since injuring ribs on right, so left side hurting. Not doing any HEP. Bilateral foot numbness right greater than left. Can't walk any significant distances due to pain with standing and walking Prior Treatments and Tests L45 laminectomy 07/20/19 prior lumbar laminectomy cervical fusion Future Testing and Treatments Planned Reports his 3 physicians to come up with plan for any further treatments or procedures Treatment Goals Patient/Caregiver Goals Be able to walk community distances without increase in pain, be able to golf. Prior Functional Status Baseline Function- ADL's Modified Independent Baseline Function- Mobility Modified Independent Baseline Function- Gait Independent without device Baseline Function- Work/School retored Baseline Function- Recreation/Hobbies frequent golfing Current Functional Impairments (Reported) Functional Limitations- ADL's independent but painful Functional Limitations- Mobility/Gait limited primarily to household due to need to sit frequently due to pain Functional Limitations- Work/School retired Functional Limitations- Recreation/ unable to golf or take walks Hobbies due to pain PT-OP-C Subjective Start: 05/10/19 13:53 Freq: Status: Active Protocol: Document 06/13/19 11:30 [facility] (Rec: 06/14/19 09:18 [facility] [id number]) OP-PT Subjective Patient Comments Patient Comments Feeling better, went to pool on own as instructed for water walking, reports he tolerated golfing better, is walking with walker less (uses at pool due to wet floor). States he is feeling more hopeful. PT-OP-J Posture/Palpation/Skin Start: 05/10/19 13:53 Freq: Status: Active Protocol: Document 05/10/19 13:53 [facility] (Rec: 05/15/19 17:29 [facility] [id number]) Posture Evaluation Position Standing Head/C-Spine Posture Forward Head L-Spine Posture Flattened Shoulder Posture (L) Rounded (R) Rounded Hip Posture (L) Externally Rotated (R) Externally Rotated Palpation Assessment Location diana lumbar paraspinals Palpation Findings Soft Tissue Tightness Muscle Guarding Tenderness Palpation Details tight diana, right greater than left PT-OP-K Range of Motion Start: 05/10/19 13:53 Freq: Status: Active Protocol: Document 05/10/19 13:53 [facility] (Rec: 05/15/19 17:29 [facility] [id number]) Lumbar Spine Range of Motion Lumbar Spine Active Degrees Testing Position Standing Flexion 20 Rotation Left 15 Rotation Right 15 Lateral Flexion Left 25 Lateral Flexion Right 25 ROM Limitations Soft Tissue Tightness Pain Comments -10 deg ext with c/o increased pain Hip Goniometric Range of Motion Hip Left Flexion w/Knee Flexed 105 Straight Leg Raise 45 Internal Rotation 25 External Rotation 70 Right Flexion w/Knee Flexed 110 Straight Leg Raise 45 Internal Rotation 15 External Rotation 20 Hip ROM Limitations Comments -5 diana hip ext Ankle and Foot Goniometric Range of Motion Ankle and Foot diana Dorsiflexion with Knee Flexed 0 Ankle and Foot ROM Limitations ROM Limitations Soft Tissue Tightness Comments -5 ankle df with knee extended PT-OP-L Special Tests Start: 05/10/19 13:53 Freq: Status: Active Protocol: Document 05/10/19 13:53 [facility] (Rec: 05/15/19 17:29 [facility] [id number]) Special Tests Lumbar Spine Special Tests Manual Traction Test Results positive for increasing pain Horacio Test Results positive for hip flexor tightness diana Straight Leg Raise Test Results positive for muscle tightness not radicular pain Compression Test Results positive right Comments pain radiating to right posterior knee Hip Special Tests Scour Test Test Results negative diana PT-OP-M Strength Start: 05/10/19 13:53 Freq: Status: Active Protocol: Document 05/10/19 13:53 [facility] (Rec: 05/15/19 17:29 [facility] [id number]) Trunk Strength Trunk Manual Muscle Testing Flexion 3- Fair- Extension 2+ Poor+ Hip Strength Hip Manual Muscle Testing Left Flexion (L2) 4 Good Extension (S1) 2+ Poor+ Abduction 3- Fair- External Rotation 3+ Fair+ Internal Rotation 4- Good- Right Flexion (L2) 4 Good Extension (S1) 2+ Poor+ Abduction 3- Fair- External Rotation 3+ Fair+ Internal Rotation 4- Good- Knee Strength Knee Manual Muscle Testing diana Flexion (S2) 4+ Good+ Extension (L3) 4+ Good+ Ankle/Foot Strength Ankle and Foot Manual Muscle Testing Left Dorsiflexion (L4) 4+ Good+ Right Dorsiflexion (L4) 4 Good Plantarflexion (S1) 4 Good Toe Strength Toe Manual Muscle Testing Left Great Toe Flexion 4+ Good+ Extension 4+ Good+ Right Great Toe Flexion 4 Good Extension 4 Good PT-OP-Q Treatments Start: 05/10/19 13:53 Freq: Status: Active Protocol: Document 06/01/19 15:21 [facility] (Rec: 06/01/19 15:52 [facility] [id number]) Cardio Equipment Recumbent Stepper (Sci-Fit) Duration (Minutes) 11 Resistance 2 Seat Position 12 Gym Equipment Shuttle Recovery Bilateral Squats Resistance 50 Shuttle Recovery Platform Stable Reps/Time 10x3 Therapeutic Exercises Supine Exercises HC stretch Reps/Minutes 2x Comments manual IT band stretch Reps/Minutes 2x Comments gentle, SKTC Reps/Minutes 2x Comments opp LE straight for hip flexor stretch HS stretch Reps/Minutes 2x Comments manual Sitting Exercises row, sh ext Equipment Used L2 TB Reps/Minutes 10x Standing Exercises closed chain HS stretch Reps/Minutes 2x Comments forearms on thighs Manual Therapy Treatment Soft Tissue Mobilization hamstrings Body Position Sidelying right quadricep Mobilization Type Myofascial Release Rolling Strumming Intensity/Depth Moderate IT band Body Location right ITB Mobilization Type Myofascial Release Rolling Strumming Intensity/Depth Moderate PT-OP-R Modalities Start: 05/10/19 13:53 Freq: Status: Active Protocol: Document 06/01/19 15:21 [facility] (Rec: 06/01/19 15:52 [facility] [id number]) Electric Stimulation Electric Stimulation Interferential Current (IFC) Body Location bilateral lumbar paraspinals Duration (Minutes) 15 Target/Sweep Sweep High/Low High Patient Position Sitting Combined With Heat/Cold Hot Pack Ultrasound Therapy Treatment Back Patient Position Sidelying Coupling Medium 8 Frequency Setting (mHz) 1 Mode Setting Continuous Duty Cycle 100% Comments bilateral lumbar paraspinals PT-OP-S Aquatic Treatment Start: 05/10/19 13:53 Freq: Status: Active Protocol: Document 06/13/19 11:30 [facility] (Rec: 06/14/19 08:12 [facility] [id number]) Aquatics Treatment Pool Entry/Exit Pool Entry/Exit Method Stairs Assistance Independent Water Walking walking with directional changes Water Level Chest Level Level of Assistance Standby Assistance backward Water Level Chest Level Level of Assistance Standby Assistance march Water Level Chest Level Level of Assistance Standby Assistance forward, side Water Level Chest Level Level of Assistance Standby Assistance Verbal Cues Lower Extremity Exercises HS curl at wall Water Level Chest Level Comments holding on to wall, cues for posture knee flex/ext Reps/Duration 10x bilat Comments (with 90 deg hip flex) squats Reps/Duration 15x Comments cues for mm activation sequence circles Details pain-free ROM Reps/Duration 10x ea direction Comments mod UE support hip flex/ext Details gentle Equipment Ankle Floats Reps/Duration 10x Comments mod UE support hip ab/ad Details gentle w/cross over front and back Reps/Duration 10x Comments mod UE support Lower Extremity Stretches quad and hip flex Body Position Standing Water Level Chest Level Equipment Small Noodle Single knee to chest bilat Details at wall Body Position Standing Water Level Chest Level Equipment Small Noodle Reps/Duration 2x30' piriformis Details at wall Body Position squatting Water Level Waist Level Reps/Duration x2 bilaterally Comments back against wall HS, ITB, hip add Body Position Standing Water Level Chest Level Equipment Small Noodle Reps/Duration 2x [place] Activities [place] Activities Bicycle Other Activities deep water hang 10 min w/#5, [place] foam float bicycle with 2# diana x 15 min Equipment bill moore[place] foam float, neck float Duration 15 minutes Comments minimal to no UE support with bicycle PT-OP-T Assessment and Plan Start: 05/10/19 13:53 Freq: Status: Active Protocol: Document 06/13/19 11:30 SAK (Rec: 06/14/19 08:12 [facility] [id number]) Physical Therapy Assessment Goals range of motion Impairment stiffness throughout patient's trunk and hips Short Term Goal (STG) Instruct in HEP to address soft tissue mobility impairments STG Duration 06/21/19 Craft Coordinator Goal (LTG) Patient to demonstrate improvements in overall flexibility throughout trunk and hips and be safe and independent with HEP and aquatic exercise program for long-term fitness and pain management. Strength Impairment weakness core and hips Short Term Goal (STG) Patient to begin land and aquatic exercise to address impairments in core and hip muscle strength STG Duration 06/21/19 Craft Coordinator Goal (LTG) Improve strength to at least 4 +/5 throughout trunk and LE's with patient demonstrating safety and independence with HEP and aquatic exercise program for long-term fitness and pain management. LTG Duration 08/09/19 Pain Impairment Pain level 8/10 Short Term Goal (STG) Decrease pain to no greater than 5/10 STG Duration 06/21/19 Craft Coordinator Goal (LTG) Decrease pain to no greater than 3/10 LTG Duration 08/09/19 Gait Impairment Requires use of walker, unable to walk community distances Short Term Goal (STG) Patient able to walk for short community distances with use of cane without an increase in pain STG Duration 06/21/19 Mcfp Goal (LTG) Patient able to ambulate without device for community distances. LTG Duration 08/09/19 Activity tolerance Impairment Oswestry disability index score 56% Short Term Goal (STG) Decrease Oswestry score to no greater than 40% to improve patient's tolerance for usual daily activities STG Duration 06/21/18 Mcfp Goal (LTG) Decrease Oswestry score to no greater than 25% with patient able to resume playing golf LTG Duration 08/09/19 Assessment Summary Assessment Improved activity tolerance and pain. Reports continued pain lateral hamstring region right. Physical Therapy Plan Frequency and Duration Frequency of Treatment 2x/Week Duration of Treatment 12 Plan of Care Start Date 05/10/19 Plan of Care End Date 08/09/19 Therapeutic Interventions Therapeutic Interventions Aquatic Therapy Gait Training Home Exercise Program Manual Therapy Patient/Caregiver Education Self-Care/Home Management Soft Tissue Mobilization Taping Therapeutic Activities Therapeutic Exercises Modalities Cold Pack/Ice Massage Electric Stimulation Hot Packs Traction- Mechanical Ultrasound Next Visit Focus/Plan Next Note Type Treatment Note Next Visit Plan Continue combination land and aquatic-based PT to decrease pain and improve patient's activity tolerance.
--- NOTE | 2019-06-27 17:00 | PT.OTN ---
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 LBP better when sits or lays down. For neck pain using compounded ointment. Went to pain clinic last week; met with physical therapist at who wants to consult with this PT. Patient states that therapist agreed with him doing aquatic therapy . Had x-ray today after lunging over car console to reach into passenger side floor, reports right sided thoracic pain. X-ray negative . Saw Dr. Dang last week. Pain medication use same. Sleeping only on left side since injuring ribs on right, so left side hurting. Not doing any HEP. Bilateral foot numbness right greater than left. Can't walk any significant distances due to pain with standing and walking Prior Treatments and Tests L45 laminectomy 07/20/19 prior lumbar laminectomy cervical fusion Future Testing and Treatments Planned Reports his 3 physicians to come up with plan for any further treatments or procedures Treatment Goals Patient/Caregiver Goals Be able to walk community distances without increase in pain, be able to golf. Prior Functional Status Baseline Function- ADL's Modified Independent Baseline Function- Mobility Modified Independent Baseline Function- Gait Independent without device Baseline Function- Work/School retored Baseline Function- Recreation/Hobbies frequent golfing Current Functional Impairments (Reported) Functional Limitations- ADL's independent but painful Functional Limitations- Mobility/Gait limited primarily to household due to need to sit frequently due to pain Functional Limitations- Work/School retired Functional Limitations- Recreation/ unable to golf or take walks Hobbies due to pain PT-OP-C Subjective Start: 05/10/19 13:53 Freq: Status: Active Protocol: Document 06/27/19 16:50 [facility] (Rec: 06/27/19 16:59 [facility] [id number]) OP-PT Subjective Patient Comments Patient Comments Had recent increase in leg pain after bending to clean up broken plate; several days. Not comfortable even to sit and having difficulty sleeping . Saw pain management physician who said there isn't much he can do for patient, thinks pain is from disc. Patient reports he can reproduce pain with seated trunk rotation. Denies pain in pool. PT-OP-J Posture/Palpation/Skin Start: 05/10/19 13:53 Freq: Status: Active Protocol: Document 05/10/19 13:53 [facility] (Rec: 05/15/19 17:29 [facility] [id number]) Posture Evaluation Position Standing Head/C-Spine Posture Forward Head L-Spine Posture Flattened Shoulder Posture (L) Rounded,(R) Rounded Hip Posture (L) Externally Rotated,(R) Externally Rotated Palpation Assessment Location diana lumbar paraspinals Palpation Findings Soft Tissue Tightness,Muscle Guarding,Tenderness Palpation Details tight diana, right greater than left PT-OP-K Range of Motion Start: 05/10/19 13:53 Freq: Status: Active Protocol: Document 05/10/19 13:53 [facility] (Rec: 05/15/19 17:29 [facility] [id number]) Lumbar Spine Range of Motion Lumbar Spine Active Degrees Testing Position Standing Flexion 20 Rotation Left 15 Rotation Right 15 Lateral Flexion Left 25 Lateral Flexion Right 25 ROM Limitations Soft Tissue Tightness,Pain Comments -10 deg ext with c/o increased pain Hip Goniometric Range of Motion Hip Left Flexion w/Knee Flexed 105 Straight Leg Raise 45 Internal Rotation 25 External Rotation 70 Right Flexion w/Knee Flexed 110 Straight Leg Raise 45 Internal Rotation 15 External Rotation 20 Hip ROM Limitations Comments -5 diana hip ext Ankle and Foot Goniometric Range of Motion Ankle and Foot diana Dorsiflexion with Knee Flexed 0 Ankle and Foot ROM Limitations ROM Limitations Soft Tissue Tightness Comments -5 ankle df with knee extended PT-OP-L Special Tests Start: 05/10/19 13:53 Freq: Status: Active Protocol: Document 05/10/19 13:53 [facility] (Rec: 05/15/19 17:29 [facility] [id number]) Special Tests Lumbar Spine Special Tests Manual Traction Test Results positive for increasing pain Horacio Test Results positive for hip flexor tightness diana Straight Leg Raise Test Results positive for muscle tightness not radicular pain Compression Test Results positive right Comments pain radiating to right posterior knee Hip Special Tests Scour Test Test Results negative diana PT-OP-M Strength Start: 05/10/19 13:53 Freq: Status: Active Protocol: Document 05/10/19 13:53 [facility] (Rec: 05/15/19 17:29 [facility] [id number]) Trunk Strength Trunk Manual Muscle Testing Flexion 3- Fair- Extension 2+ Poor+ Hip Strength Hip Manual Muscle Testing Left Flexion (L2) 4 Good Extension (S1) 2+ Poor+ Abduction 3- Fair- External Rotation 3+ Fair+ Internal Rotation 4- Good- Right Flexion (L2) 4 Good Extension (S1) 2+ Poor+ Abduction 3- Fair- External Rotation 3+ Fair+ Internal Rotation 4- Good- Knee Strength Knee Manual Muscle Testing diana Flexion (S2) 4+ Good+ Extension (L3) 4+ Good+ Ankle/Foot Strength Ankle and Foot Manual Muscle Testing Left Dorsiflexion (L4) 4+ Good+ Right Dorsiflexion (L4) 4 Good Plantarflexion (S1) 4 Good Toe Strength Toe Manual Muscle Testing Left Great Toe Flexion 4+ Good+ Extension 4+ Good+ Right Great Toe Flexion 4 Good Extension 4 Good PT-OP-Q Treatments Start: 05/10/19 13:53 Freq: Status: Active Protocol: Document 06/01/19 15:21 [facility] (Rec: 06/01/19 15:52 [facility] [id number]) Cardio Equipment Recumbent Stepper (Sci-Fit) Duration (Minutes) 11 Resistance 2 Seat Position 12 Gym Equipment Shuttle Recovery Bilateral Squats Resistance 50 Shuttle Recovery Platform Stable Reps/Time 10x3 Therapeutic Exercises Supine Exercises HC stretch Reps/Minutes 2x Comments manual IT band stretch Reps/Minutes 2x Comments gentle, SKTC Reps/Minutes 2x Comments opp LE straight for hip flexor stretch HS stretch Reps/Minutes 2x Comments manual Sitting Exercises row, sh ext Equipment Used L2 TB Reps/Minutes 10x Standing Exercises closed chain HS stretch Reps/Minutes 2x Comments forearms on thighs Manual Therapy Treatment Soft Tissue Mobilization hamstrings Body Position Sidelying right quadricep Mobilization Type Myofascial Release,Rolling, Strumming Intensity/Depth Moderate IT band Body Location right ITB Mobilization Type Myofascial Release,Rolling, Strumming Intensity/Depth Moderate PT-OP-R Modalities Start: 05/10/19 13:53 Freq: Status: Active Protocol: Document 06/01/19 15:21 [facility] (Rec: 06/01/19 15:52 SAK [id number]) Electric Stimulation Electric Stimulation Interferential Current (IFC) Body Location bilateral lumbar paraspinals Duration (Minutes) 15 Target/Sweep Sweep High/Low High Patient Position Sitting Combined With Heat/Cold Hot Pack Ultrasound Therapy Treatment Back Patient Position Sidelying Coupling Medium 8 Frequency Setting (mHz) 1 Mode Setting Continuous Duty Cycle 100% Comments bilateral lumbar paraspinals PT-OP-S Aquatic Treatment Start: 05/10/19 13:53 Freq: Status: Active Protocol: Document 06/27/19 16:50 [facility] (Rec: 06/27/19 16:59 [facility] [id number]) Aquatics Treatment Pool Entry/Exit Pool Entry/Exit Method Stairs Assistance Independent Water Walking backward Water Level Chest Level Level of Assistance Standby Assistance december Water Level Chest Level Level of Assistance Standby Assistance forward, side Water Level Chest Level Level of Assistance Standby Assistance,Verbal Cues Lower Extremity Exercises HS curl at wall Water Level Chest Level Comments holding on to wall, cues for posture knee flex/ext Reps/Duration 10x bilat Comments (with 90 deg hip flex) squats Reps/Duration 15x Comments cues for mm activation sequence circles Details pain-free ROM Reps/Duration 10x ea direction Comments mod UE support hip flex/ext Details gentle Reps/Duration 10x Comments mod UE support hip ab/ad Reps/Duration 10x Comments mod UE support Lower Extremity Stretches quad and hip flex Body Position Standing Water Level Chest Level Comments active stretch gently Single knee to chest bilat Comments painful, not done HS, ITB, hip add Comments painful, not done [employer] Activities [employer] Activities Bicycle Other Activities deep water hang 10 min w/#5, [place] foam float bicycle with 2# diana x 15 min Equipment [place] foam float, neck float Duration 15 minutes Comments minimal to no UE support with bicycle Manual Techniques Aquatic Massage standing DTM to thoracolumbar paraspinals with patient leaning against pool edge. PT-OP-T Assessment and Plan Start: 05/10/19 13:53 Freq: Status: Active Protocol: Document 06/27/19 16:50 SAK (Rec: 06/27/19 16:59 SAK [id number]) Physical Therapy Assessment Goals range of motion Impairment stiffness throughout patient's trunk and hips Short Term Goal (STG) Instruct in HEP to address soft tissue mobility impairments STG Duration 06/21/19 [employer] Goal (LTG) Patient to demonstrate improvements in overall flexibility throughout trunk and hips and be safe and independent with HEP and aquatic exercise program for long-term fitness and pain management. Strength Impairment weakness core and hips Short Term Goal (STG) Patient to begin land and aquatic exercise to address impairments in core and hip muscle strength STG Duration 06/21/19 [employer] Goal (LTG) Improve strength to at least 4 +/5 throughout trunk and LE's with patient demonstrating safety and independence with HEP and aquatic exercise program for long-term fitness and pain management. LTG Duration 08/09/19 Pain Impairment Pain level 8/10 Short Term Goal (STG) Decrease pain to no greater than 5/10 STG Duration 06/21/19 [employer] Goal (LTG) Decrease pain to no greater than 3/10 LTG Duration 08/09/19 Gait Impairment Requires use of walker, unable to walk community distances Short Term Goal (STG) Patient able to walk for short community distances with use of cane without an increase in pain STG Duration 06/21/19 Skilled Nursing Goal (LTG) Patient able to ambulate without device for community distances. LTG Duration 08/09/19 Activity tolerance Impairment Oswestry disability index score 56% Short Term Goal (STG) Decrease Oswestry score to no greater than 40% to improve patient's tolerance for usual daily activities STG Duration 06/21/18 [employer]ant Goal (LTG) Decrease Oswestry score to no greater than 25% with patient able to resume playing golf LTG Duration 08/09/19 Assessment Summary Assessment Pain does appear to be discogenic in nature. Pain flared with excessive flexion to clean up broken plate. Decompression relieves pain. Recommended increased frequency of aquatic exercise to patient. Physical Therapy Plan Frequency and Duration Frequency of Treatment 2x/Week Duration of Treatment 12 Plan of Care Start Date 05/10/19 Plan of Care End Date 08/09/19 Therapeutic Interventions Therapeutic Interventions Aquatic Therapy,Gait Training, Home Exercise Program,Manual Therapy,Patient/Caregiver Education,Self-Care/Home Management,Soft Tissue Mobilization,Taping, Therapeutic Activities, Therapeutic Exercises Modalities Cold Pack/Ice Massage,Electric Stimulation,Hot Packs, Traction- Mechanical, Ultrasound Next Visit Focus/Plan Next Note Type Treatment Note Next Visit Plan Continue aquatic PT to decrease patient's pain and improve his function. Aquatic manual therapy if helpful today.
--- NOTE | 2019-07-04 16:43 | PT.OTN ---
Current Diagnoses Stiffness of unspecified joint, not elsewhere classified (07/04/19) Radiculopathy, lumbar region (07/04/19) Low back pain (07/04/19) Abnormal posture (07/04/19) Weakness (07/04/19) Physical Therapy Treatment Note PT-OP-A Visit Information Start: 05/10/19 13:53 Freq: Status: Active Protocol: Document 07/04/19 16:29 SAK (Rec: 07/04/19 16:43 SAK [id number]) Out-Patient Physical Therapy Visit Information Visit Information Visit Type Treatment Note Visit Start Time 11:00 Visit Stop Time 11:55 Total Visit Minutes 55 Visit Number 9 Number of ART MODEL Visits 0 Evaluation Information Evaluation Date 05/10/19 Precautions Precautions cardiac cervical fusion arthritis HTN PT-OP-B Current Condition Start: 05/10/19 13:53 Freq: Status: Active Protocol: Document 05/10/19 13:53 SAK (Rec: 05/10/19 14:33 SAK [id number]) Current Condition History of Current Condition Onset Date 07/20/19 Current Complaints worsening LBP, inability to tolerate upright activity History of Current Condition Since last seen LE pain into right LE just posterior lateral right knee instead of all the way to his foot, but reports an increase in back pain. LBP better when sits or lays down. For neck pain using compounded ointment. Went to pain clinic last week; met with physical therapist at who wants to consult with this PT. Patient states that therapist agreed with him doing aquatic therapy . Had x-ray today after lunging over car console to reach into passenger side floor, reports right sided thoracic pain. X-ray negative . Saw Dr. Dang last week. Pain medication use same. Sleeping only on left side since injuring ribs on right, so left side hurting. Not doing any HEP. Bilateral foot numbness right greater than left. Can't walk any significant distances due to pain with standing and walking Prior Treatments and Tests L45 laminectomy 07/20/19 prior lumbar laminectomy cervical fusion Future Testing and Treatments Planned Reports his 3 physicians to come up with plan for any further treatments or procedures Treatment Goals Patient/Caregiver Goals Be able to walk community distances without increase in pain, be able to golf. Prior Functional Status Baseline Function- ADL's Modified Independent Baseline Function- Mobility Modified Independent Baseline Function- Gait Independent without device Baseline Function- Work/School retored Baseline Function- Recreation/Hobbies frequent golfing Current Functional Impairments (Reported) Functional Limitations- ADL's independent but painful Functional Limitations- Mobility/Gait limited primarily to household due to need to sit frequently due to pain Functional Limitations- Work/School retired Functional Limitations- Recreation/ unable to golf or take walks Hobbies due to pain PT-OP-C Subjective Start: 05/10/19 13:53 Freq: Status: Active Protocol: Document 07/04/19 16:29 [facility] (Rec: 07/04/19 16:43 [facility] [id number]) OP-PT Subjective Patient Comments Patient Comments Patient reports his leg continues to hurt at all times , except when in the water. Increased pain with bending forward to tie shoes or when lifting leg up toward himself for tying shoes. Also not able to put melanie in ground for golfing without increase in pain. Going to see Dr. Littlejohn this week. PT-OP-J Posture/Palpation/Skin Start: 05/10/19 13:53 Freq: Status: Active Protocol: Document 05/10/19 13:53 [facility] (Rec: 05/15/19 17:29 [facility] [id number]) Posture Evaluation Position Standing Head/C-Spine Posture Forward Head L-Spine Posture Flattened Shoulder Posture (L) Rounded,(R) Rounded Hip Posture (L) Externally Rotated,(R) Externally Rotated Palpation Assessment Location diana lumbar paraspinals Palpation Findings Soft Tissue Tightness,Muscle Guarding,Tenderness Palpation Details tight diana, right greater than left PT-OP-K Range of Motion Start: 05/10/19 13:53 Freq: Status: Active Protocol: Document 05/10/19 13:53 [facility] (Rec: 05/15/19 17:29 [facility] [id number]) Lumbar Spine Range of Motion Lumbar Spine Active Degrees Testing Position Standing Flexion 20 Rotation Left 15 Rotation Right 15 Lateral Flexion Left 25 Lateral Flexion Right 25 ROM Limitations Soft Tissue Tightness,Pain Comments -10 deg ext with c/o increased pain Hip Goniometric Range of Motion Hip Left Flexion w/Knee Flexed 105 Straight Leg Raise 45 Internal Rotation 25 External Rotation 70 Right Flexion w/Knee Flexed 110 Straight Leg Raise 45 Internal Rotation 15 External Rotation 20 Hip ROM Limitations Comments -5 diana hip ext Ankle and Foot Goniometric Range of Motion Ankle and Foot diana Dorsiflexion with Knee Flexed 0 Ankle and Foot ROM Limitations ROM Limitations Soft Tissue Tightness Comments -5 ankle df with knee extended PT-OP-L Special Tests Start: 05/10/19 13:53 Freq: Status: Active Protocol: Document 05/10/19 13:53 [facility] (Rec: 05/15/19 17:29 [facility] [id number]) Special Tests Lumbar Spine Special Tests Manual Traction Test Results positive for increasing pain Horacio Test Results positive for hip flexor tightness diana Straight Leg Raise Test Results positive for muscle tightness not radicular pain Compression Test Results positive right Comments pain radiating to right posterior knee Hip Special Tests Scour Test Test Results negative diana PT-OP-M Strength Start: 05/10/19 13:53 Freq: Status: Active Protocol: Document 05/10/19 13:53 [facility] (Rec: 05/15/19 17:29 [facility] [id number]) Trunk Strength Trunk Manual Muscle Testing Flexion 3- Fair- Extension 2+ Poor+ Hip Strength Hip Manual Muscle Testing Left Flexion (L2) 4 Good Extension (S1) 2+ Poor+ Abduction 3- Fair- External Rotation 3+ Fair+ Internal Rotation 4- Good- Right Flexion (L2) 4 Good Extension (S1) 2+ Poor+ Abduction 3- Fair- External Rotation 3+ Fair+ Internal Rotation 4- Good- Knee Strength Knee Manual Muscle Testing diana Flexion (S2) 4+ Good+ Extension (L3) 4+ Good+ Ankle/Foot Strength Ankle and Foot Manual Muscle Testing Left Dorsiflexion (L4) 4+ Good+ Right Dorsiflexion (L4) 4 Good Plantarflexion (S1) 4 Good Toe Strength Toe Manual Muscle Testing Left Great Toe Flexion 4+ Good+ Extension 4+ Good+ Right Great Toe Flexion 4 Good Extension 4 Good PT-OP-Q Treatments Start: 05/10/19 13:53 Freq: Status: Active Protocol: Document 06/01/19 15:21 [facility] (Rec: 06/01/19 15:52 [facility] [id number]) Cardio Equipment Recumbent Stepper (Sci-Fit) Duration (Minutes) 11 Resistance 2 Seat Position 12 Gym Equipment Shuttle Recovery Bilateral Squats Resistance 50 Shuttle Recovery Platform Stable Reps/Time 10x3 Therapeutic Exercises Supine Exercises HC stretch Reps/Minutes 2x Comments manual IT band stretch Reps/Minutes 2x Comments gentle, SKTC Reps/Minutes 2x Comments opp LE straight for hip flexor stretch HS stretch Reps/Minutes 2x Comments manual Sitting Exercises row, sh ext Equipment Used L2 TB Reps/Minutes 10x Standing Exercises closed chain HS stretch Reps/Minutes 2x Comments forearms on thighs Manual Therapy Treatment Soft Tissue Mobilization hamstrings Body Position Sidelying right quadricep Mobilization Type Myofascial Release,Rolling, Strumming Intensity/Depth Moderate IT band Body Location right ITB Mobilization Type Myofascial Release,Rolling, Strumming Intensity/Depth Moderate PT-OP-R Modalities Start: 05/10/19 13:53 Freq: Status: Active Protocol: Document 06/01/19 15:21 [facility] (Rec: 06/01/19 15:52 [facility]AK [id number]) Electric Stimulation Electric Stimulation Interferential Current (IFC) Body Location bilateral lumbar paraspinals Duration (Minutes) 15 Target/Sweep Sweep High/Low High Patient Position Sitting Combined With Heat/Cold Hot Pack Ultrasound Therapy Treatment Back Patient Position Sidelying Coupling Medium 8 Frequency Setting (mHz) 1 Mode Setting Continuous Duty Cycle 100% Comments bilateral lumbar paraspinals PT-OP-S Aquatic Treatment Start: 05/10/19 13:53 Freq: Status: Active Protocol: Document 07/04/19 16:29 [facility] (Rec: 07/04/19 16:43 [facility] [id number]) Aquatics Treatment Pool Entry/Exit Pool Entry/Exit Method Stairs Assistance Independent Water Walking [place] December Water Level Chest Level walking with directional changes Water Level Chest Level Level of Assistance Standby Assistance backward Water Level Chest Level Level of Assistance Standby Assistance december Water Level Chest Level Level of Assistance Standby Assistance forward, side Water Level Chest Level Level of Assistance Standby Assistance,Verbal Cues Lower Extremity Exercises HS nerve flossing Details SLR with ankle df/pf Body Position standing, back against wall Reps/Duration 5x ea LE HS curl at wall Water Level Chest Level Comments holding on to wall, cues for posture knee flex/ext Reps/Duration 10x bilat Comments (with 90 deg hip flex) squats Reps/Duration 15x Comments cues for mm activation sequence circles Details pain-free ROM Reps/Duration 10x ea direction Comments mod UE support hip flex/ext Details gentle Reps/Duration 10x Comments mod UE support hip ab/ad Reps/Duration 10x Comments mod UE support heel toe raise Reps/Duration 10x Lower Extremity Stretches quad and hip flex Body Position Standing Water Level Chest Level Comments active stretch gently Single knee to chest bilat Comments painful, not done piriformis Details at wall Body Position squatting Water Level Waist Level Reps/Duration x2 bilaterally Comments back against wall HS, ITB, hip add Comments painful, not done Upper Extremity Exercises sh flex/ext Reps/Duration 10x Comments DLS emphasis shoulder hor ab/ad Reps/Duration 10x Comments DLS emphasis Golf Swing Body Position Standing Water Level Waist Level Equipment water cane Reps/Duration 5 Comments activity stopped due to pain in LB Mayflower Activities Mayflower Activities Bicycle Other Activities deep water hang 10 min w/#5, te-moak foam float bicycle with 2# diana x 15 min Equipment te-moak foam float, neck float Duration 15 minutes Comments minimal to no UE support with bicycle Manual Techniques Aquatic Massage standing DTM to thoracolumbar paraspinals with patient leaning against pool edge. PT-OP-T Assessment and Plan Start: 05/10/19 13:53 Freq: Status: Active Protocol: Document 07/04/19 16:29 [facility] (Rec: 07/04/19 16:43 [facility] [id number]) Physical Therapy Assessment Goals range of motion Impairment stiffness throughout patient's trunk and hips Short Term Goal (STG) Instruct in HEP to address soft tissue mobility impairments STG Duration 06/21/19 Halfway Goal (LTG) Patient to demonstrate improvements in overall flexibility throughout trunk and hips and be safe and independent with HEP and aquatic exercise program for long-term fitness and pain management. Strength Impairment weakness core and hips Short Term Goal (STG) Patient to begin land and aquatic exercise to address impairments in core and hip muscle strength STG Duration 06/21/19 Cath Laboratory Technician Goal (LTG) Improve strength to at least 4 +/5 throughout trunk and LE's with patient demonstrating safety and independence with HEP and aquatic exercise program for long-term fitness and pain management. LTG Duration 08/09/19 Pain Impairment Pain level 8/10 Short Term Goal (STG) Decrease pain to no greater than 5/10 STG Duration 06/21/19 Cath Laboratory Technician Goal (LTG) Decrease pain to no greater than 3/10 LTG Duration 08/09/19 Gait Impairment Requires use of walker, unable to walk community distances Short Term Goal (STG) Patient able to walk for short community distances with use of cane without an increase in pain STG Duration 06/21/19 Halfway Goal (LTG) Patient able to ambulate without device for community distances. LTG Duration 08/09/19 Activity tolerance Impairment Oswestry disability index score 56% Short Term Goal (STG) Decrease Oswestry score to no greater than 40% to improve patient's tolerance for usual daily activities STG Duration 06/21/18 Cath Laboratory Technician Goal (LTG) Decrease Oswestry score to no greater than 25% with patient able to resume playing golf LTG Duration 08/09/19 Assessment Summary Assessment Patient reports relief of pain in aquatic environment except with excess lumbar flexion, pain constant on land. Able to tolerate nerve flossing today, decreased UE support in deep water. Physical Therapy Plan Frequency and Duration Frequency of Treatment 2x/Week Duration of Treatment 12 wks Plan of Care Start Date 05/10/19 Plan of Care End Date 08/09/19 Therapeutic Interventions Therapeutic Interventions Aquatic Therapy,Gait Training, Home Exercise Program,Manual Therapy,Patient/Caregiver Education,Self-Care/Home Management,Soft Tissue Mobilization,Taping, Therapeutic Activities, Therapeutic Exercises Modalities Cold Pack/Ice Massage,Electric Stimulation,Hot Packs, Traction- Mechanical, Ultrasound Next Visit Focus/Plan Next Note Type Treatment Note Next Visit Plan Progression of aquatic PT with emphasis on flexibility, core stabilization, soft tissue mobilization, deep water traction for spinal decompression.
--- NOTE | 2019-07-06 11:45 | PT.OTN ---
Current Diagnoses Stiffness of unspecified joint, not elsewhere classified (07/06/19) Radiculopathy, lumbar region (07/06/19) Low back pain (07/06/19) Abnormal posture (07/06/19) Weakness (07/06/19) Physical Therapy Treatment Note PT-OP-A Visit Information Start: 05/10/19 13:53 Freq: Status: Active Protocol: Document 07/06/19 11:45 SAK (Rec: 07/07/19 18:08 SAK [id number]) Out-Patient Physical Therapy Visit Information Visit Information Visit Type Aquatic Treatment Note Visit Start Time 11:45 Visit Stop Time 12:30 Total Visit Minutes 45 Visit Number 10 Number of PROPULSION MACHINERY SERVICE ENGINEER Visits 0 Evaluation Information Evaluation Date 05/10/19 Precautions Precautions cardiac cervical fusion arthritis HTN PT-OP-B Current Condition Start: 05/10/19 13:53 Freq: Status: Active Protocol: Document 05/10/19 13:53 SAK (Rec: 05/10/19 14:33 SAK [id number]) Current Condition History of Current Condition Onset Date 07/20/19 Current Complaints worsening LBP, inability to tolerate upright activity History of Current Condition Since last seen LE pain into right LE just posterior lateral right knee instead of all the way to his foot, but reports an increase in back pain. LBP better when sits or lays down. For neck pain using compounded ointment. Went to pain clinic last week; met with physical therapist at who wants to consult with this PT. Patient states that therapist agreed with him doing aquatic therapy . Had x-ray today after lunging over car console to reach into passenger side floor, reports right sided thoracic pain. X-ray negative . Saw Dr. Dang last week. Pain medication use same. Sleeping only on left side since injuring ribs on right, so left side hurting. Not doing any HEP. Bilateral foot numbness right greater than left. Can't walk any significant distances due to pain with standing and walking Prior Treatments and Tests L45 laminectomy 07/20/19 prior lumbar laminectomy cervical fusion Future Testing and Treatments Planned Reports his 3 physicians to come up with plan for any further treatments or procedures Treatment Goals Patient/Caregiver Goals Be able to walk community distances without increase in pain, be able to golf. Prior Functional Status Baseline Function- ADL's Modified Independent Baseline Function- Mobility Modified Independent Baseline Function- Gait Independent without device Baseline Function- Work/School retored Baseline Function- Recreation/Hobbies frequent golfing Current Functional Impairments (Reported) Functional Limitations- ADL's independent but painful Functional Limitations- Mobility/Gait limited primarily to household due to need to sit frequently due to pain Functional Limitations- Work/School retired Functional Limitations- Recreation/ unable to golf or take walks Hobbies due to pain PT-OP-C Subjective Start: 05/10/19 13:53 Freq: Status: Active Protocol: Document 07/06/19 11:45 [facility] (Rec: 07/07/19 18:08 [facility] [id number]) OP-PT Subjective Patient Comments Patient Comments LE pain decreased after last session, though continues to have pain at all times except in the water. Seeing Dr. Littlejohn today for further assessment of his LBP and leg pain. Agrees with PT recommendation to increase his frequency of doing aquatic exercise due to benefit from spinal decompression and increased mobility in pool. Despite pain plans to try golfing this weekend as it is his most enjoyable activity. Uses electric golf cart PT-OP-J Posture/Palpation/Skin Start: 05/10/19 13:53 Freq: Status: Active Protocol: Document 05/10/19 13:53 SAK (Rec: 05/15/19 17:29 [facility] [id number]) Posture Evaluation Position Standing Head/C-Spine Posture Forward Head L-Spine Posture Flattened Shoulder Posture (L) Rounded,(R) Rounded Hip Posture (L) Externally Rotated,(R) Externally Rotated Palpation Assessment Location diana lumbar paraspinals Palpation Findings Soft Tissue Tightness,Muscle Guarding,Tenderness Palpation Details tight diana, right greater than left PT-OP-K Range of Motion Start: 05/10/19 13:53 Freq: Status: Active Protocol: Document 05/10/19 13:53 SAK (Rec: 05/15/19 17:29 [facility] [id number]) Lumbar Spine Range of Motion Lumbar Spine Active Degrees Testing Position Standing Flexion 20 Rotation Left 15 Rotation Right 15 Lateral Flexion Left 25 Lateral Flexion Right 25 ROM Limitations Soft Tissue Tightness,Pain Comments -10 deg ext with c/o increased pain Hip Goniometric Range of Motion Hip Left Flexion w/Knee Flexed 105 Straight Leg Raise 45 Internal Rotation 25 External Rotation 70 Right Flexion w/Knee Flexed 110 Straight Leg Raise 45 Internal Rotation 15 External Rotation 20 Hip ROM Limitations Comments -5 diana hip ext Ankle and Foot Goniometric Range of Motion Ankle and Foot diana Dorsiflexion with Knee Flexed 0 Ankle and Foot ROM Limitations ROM Limitations Soft Tissue Tightness Comments -5 ankle df with knee extended PT-OP-L Special Tests Start: 05/10/19 13:53 Freq: Status: Active Protocol: Document 05/10/19 13:53 [facility] (Rec: 05/15/19 17:29 [facility] [id number]) Special Tests Lumbar Spine Special Tests Manual Traction Test Results positive for increasing pain Horacio Test Results positive for hip flexor tightness diana Straight Leg Raise Test Results positive for muscle tightness not radicular pain Compression Test Results positive right Comments pain radiating to right posterior knee Hip Special Tests Scour Test Test Results negative diana PT-OP-M Strength Start: 05/10/19 13:53 Freq: Status: Active Protocol: Document 05/10/19 13:53 [facility] (Rec: 05/15/19 17:29 [facility] [id number]) Trunk Strength Trunk Manual Muscle Testing Flexion 3- Fair- Extension 2+ Poor+ Hip Strength Hip Manual Muscle Testing Left Flexion (L2) 4 Good Extension (S1) 2+ Poor+ Abduction 3- Fair- External Rotation 3+ Fair+ Internal Rotation 4- Good- Right Flexion (L2) 4 Good Extension (S1) 2+ Poor+ Abduction 3- Fair- External Rotation 3+ Fair+ Internal Rotation 4- Good- Knee Strength Knee Manual Muscle Testing diana Flexion (S2) 4+ Good+ Extension (L3) 4+ Good+ Ankle/Foot Strength Ankle and Foot Manual Muscle Testing Left Dorsiflexion (L4) 4+ Good+ Right Dorsiflexion (L4) 4 Good Plantarflexion (S1) 4 Good Toe Strength Toe Manual Muscle Testing Left Great Toe Flexion 4+ Good+ Extension 4+ Good+ Right Great Toe Flexion 4 Good Extension 4 Good PT-OP-Q Treatments Start: 05/10/19 13:53 Freq: Status: Active Protocol: Document 06/01/19 15:21 [facility] (Rec: 06/01/19 15:52 [facility] [id number]) Cardio Equipment Recumbent Stepper (Sci-Fit) Duration (Minutes) 11 Resistance 2 Seat Position 12 Gym Equipment Shuttle Recovery Bilateral Squats Resistance 50 Shuttle Recovery Platform Stable Reps/Time 10x3 Therapeutic Exercises Supine Exercises HC stretch Reps/Minutes 2x Comments manual IT band stretch Reps/Minutes 2x Comments gentle, SKTC Reps/Minutes 2x Comments opp LE straight for hip flexor stretch HS stretch Reps/Minutes 2x Comments manual Sitting Exercises row, sh ext Equipment Used L2 TB Reps/Minutes 10x Standing Exercises closed chain HS stretch Reps/Minutes 2x Comments forearms on thighs Manual Therapy Treatment Soft Tissue Mobilization hamstrings Body Position Sidelying right quadricep Mobilization Type Myofascial Release,Rolling, Strumming Intensity/Depth Moderate IT band Body Location right ITB Mobilization Type Myofascial Release,Rolling, Strumming Intensity/Depth Moderate PT-OP-R Modalities Start: 05/10/19 13:53 Freq: Status: Active Protocol: Document 06/01/19 15:21 SAK (Rec: 06/01/19 15:52 [facility] [id number]) Electric Stimulation Electric Stimulation Interferential Current (IFC) Body Location bilateral lumbar paraspinals Duration (Minutes) 15 Target/Sweep Sweep High/Low High Patient Position Sitting Combined With Heat/Cold Hot Pack Ultrasound Therapy Treatment Back Patient Position Sidelying Coupling Medium 8 Frequency Setting (mHz) 1 Mode Setting Continuous Duty Cycle 100% Comments bilateral lumbar paraspinals PT-OP-S Aquatic Treatment Start: 05/10/19 13:53 Freq: Status: Active Protocol: Document 07/06/19 11:45 [facility] (Rec: 07/07/19 18:08 [facility] [id number]) Aquatics Treatment Pool Entry/Exit Pool Entry/Exit Method Stairs Assistance Independent Water Walking backward Water Level Chest Level Level of Assistance Standby Assistance Comments arms at side for inc core challenge december Water Level Chest Level Level of Assistance Standby Assistance Comments arms at sides for inc core challenge forward, side Water Level Chest Level Level of Assistance Standby Assistance,Verbal Cues Lower Extremity Stretches LE nerve glides Details SLR with ankle df/pf Reps/Duration 10x ea LE Comments standing with back against pool quad and hip flex Body Position Standing Water Level Chest Level Comments active stretch gently Single knee to chest bilat Reps/Duration 2x Comments gentle piriformis Details at wall Body Position squatting Water Level Waist Level Reps/Duration x2 bilaterally Comments back against wall Upper Extremity Exercises sh flex/ext Details diana and unil Reps/Duration 10x Comments DLS emphasis shoulder hor ab/ad Details diana and unil Reps/Duration 10x Comments DLS emphasis [place] Activities [place] Activities Bicycle Other Activities deep water hang 10 min w/#5, [place] foam float bicycle with 2# diana x 15 min Equipment [place] foam float, neck float Duration 15 minutes Comments minimal to no UE support with bicycle Manual Techniques Aquatic Massage standing DTM to thoracolumbar paraspinals with patient leaning against pool edge. PT-OP-T Assessment and Plan Start: 05/10/19 13:53 Freq: Status: Active Protocol: Document 07/06/19 11:45 SAK (Rec: 07/07/19 18:08 SAK [id number]) Physical Therapy Assessment Goals range of motion Impairment stiffness throughout patient's trunk and hips Short Term Goal (STG) Instruct in HEP to address soft tissue mobility impairments STG Duration 06/21/19 Aircraft Skin Burnisher Goal (LTG) Patient to demonstrate improvements in overall flexibility throughout trunk and hips and be safe and independent with HEP and aquatic exercise program for long-term fitness and pain management. Strength Impairment weakness core and hips Short Term Goal (STG) Patient to begin land and aquatic exercise to address impairments in core and hip muscle strength STG Duration 06/21/19 [facility] Goal (LTG) Improve strength to at least 4 +/5 throughout trunk and LE's with patient demonstrating safety and independence with HEP and aquatic exercise program for long-term fitness and pain management. LTG Duration 08/09/19 Pain Impairment Pain level 8/10 Short Term Goal (STG) Decrease pain to no greater than 5/10 STG Duration 06/21/19 [facility] Goal (LTG) Decrease pain to no greater than 3/10 LTG Duration 08/09/19 Gait Impairment Requires use of walker, unable to walk community distances Short Term Goal (STG) Patient able to walk for short community distances with use of cane without an increase in pain STG Duration 06/21/19 Aircraft Skin Burnisher Goal (LTG) Patient able to ambulate without device for community distances. LTG Duration 08/09/19 Activity tolerance Impairment Oswestry disability index score 56% Short Term Goal (STG) Decrease Oswestry score to no greater than 40% to improve patient's tolerance for usual daily activities STG Duration 06/21/18 Aircraft Skin Burnisher Goal (LTG) Decrease Oswestry score to no greater than 25% with patient able to resume playing golf LTG Duration 08/09/19 Assessment Summary Assessment Decreased pain with aquatic therapy. Continual education regarding postural contribution to tight paraspinal musculature and habitual flexed posture likely causing biomechanical stress to nerve root in spine. Physical Therapy Plan Frequency and Duration Frequency of Treatment 2x/Week Duration of Treatment 12 wks Plan of Care Start Date 05/10/19 Plan of Care End Date 08/09/19 Therapeutic Interventions Therapeutic Interventions Aquatic Therapy,Gait Training, Home Exercise Program,Manual Therapy,Patient/Caregiver Education,Self-Care/Home Management,Soft Tissue Mobilization,Taping, Therapeutic Activities, Therapeutic Exercises Modalities Cold Pack/Ice Massage,Electric Stimulation,Hot Packs, Traction- Mechanical, Ultrasound Next Visit Focus/Plan Next Note Type Treatment Note Next Visit Plan Add lunge walk, increased speed with walking and LE ex as tolerated. Trunk rotation strengthening as tolerated.
--- NOTE | 2019-07-11 11:45 | PT.OTN ---
Current Diagnoses Stiffness of unspecified joint, not elsewhere classified (07/11/19) Radiculopathy, lumbar region (07/11/19) Low back pain (07/11/19) Abnormal posture (07/11/19) Weakness (07/11/19) Physical Therapy Treatment Note PT-OP-A Visit Information Start: 05/10/19 13:53 Freq: Status: Active Protocol: Document 07/11/19 11:00 CLB (Rec: 07/11/19 14:53 CLB [id number]) Out-Patient Physical Therapy Visit Information Visit Information Visit Type Aquatic Treatment Note Visit Start Time 11:00 Visit Stop Time 11:45 Total Visit Minutes 45 Visit Number 11 Number of AUTOMATION MECHANIC Visits 1 PT-OP-B Current Condition Start: 05/10/19 13:53 Freq: Status: Active Protocol: Document 05/10/19 13:53 SAK (Rec: 05/10/19 14:33 SAK [id number]) Current Condition History of Current Condition Onset Date 07/20/19 Current Complaints worsening LBP, inability to tolerate upright activity History of Current Condition Since last seen LE pain into right LE just posterior lateral right knee instead of all the way to his foot, but reports an increase in back pain. LBP better when sits or lays down. For neck pain using compounded ointment. Went to pain clinic last week; met with physical therapist at who wants to consult with this PT. Patient states that therapist agreed with him doing aquatic therapy . Had x-ray today after lunging over car console to reach into passenger side floor, reports right sided thoracic pain. X-ray negative . Saw Dr. Dang last week. Pain medication use same. Sleeping only on left side since injuring ribs on right, so left side hurting. Not doing any HEP. Bilateral foot numbness right greater than left. Can't walk any significant distances due to pain with standing and walking Prior Treatments and Tests L45 laminectomy 07/20/19 prior lumbar laminectomy cervical fusion Future Testing and Treatments Planned Reports his 3 physicians to come up with plan for any further treatments or procedures Treatment Goals Patient/Caregiver Goals Be able to walk community distances without increase in pain, be able to golf. Prior Functional Status Baseline Function- ADL's Modified Independent Baseline Function- Mobility Modified Independent Baseline Function- Gait Independent without device Baseline Function- Work/School retored Baseline Function- Recreation/Hobbies frequent golfing Current Functional Impairments (Reported) Functional Limitations- ADL's independent but painful Functional Limitations- Mobility/Gait limited primarily to household due to need to sit frequently due to pain Functional Limitations- Work/School retired Functional Limitations- Recreation/ unable to golf or take walks Hobbies due to pain PT-OP-C Subjective Start: 05/10/19 13:53 Freq: Status: Active Protocol: Document 07/11/19 11:00 CLB (Rec: 07/11/19 14:53 CLB [id number]) OP-PT Subjective Patient Comments Patient Comments Pt states he continues to have pain in his leg. PT-OP-J Posture/Palpation/Skin Start: 05/10/19 13:53 Freq: Status: Active Protocol: Document 05/10/19 13:53 SAK (Rec: 05/15/19 17:29 SAK [id number]) Posture Evaluation Position Standing Head/C-Spine Posture Forward Head L-Spine Posture Flattened Shoulder Posture (L) Rounded,(R) Rounded Hip Posture (L) Externally Rotated,(R) Externally Rotated Palpation Assessment Location diana lumbar paraspinals Palpation Findings Soft Tissue Tightness,Muscle Guarding,Tenderness Palpation Details tight diana, right greater than left PT-OP-K Range of Motion Start: 05/10/19 13:53 Freq: Status: Active Protocol: Document 05/10/19 13:53 SAK (Rec: 05/15/19 17:29 SAK [id number]) Lumbar Spine Range of Motion Lumbar Spine Active Degrees Testing Position Standing Flexion 20 Rotation Left 15 Rotation Right 15 Lateral Flexion Left 25 Lateral Flexion Right 25 ROM Limitations Soft Tissue Tightness,Pain Comments -10 deg ext with c/o increased pain Hip Goniometric Range of Motion Hip Left Flexion w/Knee Flexed 105 Straight Leg Raise 45 Internal Rotation 25 External Rotation 70 Right Flexion w/Knee Flexed 110 Straight Leg Raise 45 Internal Rotation 15 External Rotation 20 Hip ROM Limitations Comments -5 diana hip ext Ankle and Foot Goniometric Range of Motion Ankle and Foot diana Dorsiflexion with Knee Flexed 0 Ankle and Foot ROM Limitations ROM Limitations Soft Tissue Tightness Comments -5 ankle df with knee extended PT-OP-L Special Tests Start: 05/10/19 13:53 Freq: Status: Active Protocol: Document 05/10/19 13:53 SAK (Rec: 07/28/19 17:29 [facility] [id number]) Special Tests Lumbar Spine Special Tests Manual Traction Test Results positive for increasing pain Horacio Test Results positive for hip flexor tightness diana Straight Leg Raise Test Results positive for muscle tightness not radicular pain Compression Test Results positive right Comments pain radiating to right posterior knee Hip Special Tests Scour Test Test Results negative diana PT-OP-M Strength Start: 05/10/19 13:53 Freq: Status: Active Protocol: Document 05/10/19 13:53 [facility] (Rec: 05/15/19 17:29 [facility] [id number]) Trunk Strength Trunk Manual Muscle Testing Flexion 3- Fair- Extension 2+ Poor+ Hip Strength Hip Manual Muscle Testing Left Flexion (L2) 4 Good Extension (S1) 2+ Poor+ Abduction 3- Fair- External Rotation 3+ Fair+ Internal Rotation 4- Good- Right Flexion (L2) 4 Good Extension (S1) 2+ Poor+ Abduction 3- Fair- External Rotation 3+ Fair+ Internal Rotation 4- Good- Knee Strength Knee Manual Muscle Testing diana Flexion (S2) 4+ Good+ Extension (L3) 4+ Good+ Ankle/Foot Strength Ankle and Foot Manual Muscle Testing Left Dorsiflexion (L4) 4+ Good+ Right Dorsiflexion (L4) 4 Good Plantarflexion (S1) 4 Good Toe Strength Toe Manual Muscle Testing Left Great Toe Flexion 4+ Good+ Extension 4+ Good+ Right Great Toe Flexion 4 Good Extension 4 Good PT-OP-Q Treatments Start: 05/10/19 13:53 Freq: Status: Active Protocol: Document 06/01/19 15:21 [facility] (Rec: 06/01/19 15:52 [facility] [id number]) Cardio Equipment Recumbent Stepper (Sci-Fit) Duration (Minutes) 11 Resistance 2 Seat Position 12 Gym Equipment Shuttle Recovery Bilateral Squats Resistance 50 Shuttle Recovery Platform Stable Reps/Time 10x3 Therapeutic Exercises Supine Exercises HC stretch Reps/Minutes 2x Comments manual IT band stretch Reps/Minutes 2x Comments gentle, SKTC Reps/Minutes 2x Comments opp LE straight for hip flexor stretch HS stretch Reps/Minutes 2x Comments manual Sitting Exercises row, sh ext Equipment Used L2 TB Reps/Minutes 10x Standing Exercises closed chain HS stretch Reps/Minutes 2x Comments forearms on thighs Manual Therapy Treatment Soft Tissue Mobilization hamstrings Body Position Sidelying right quadricep Mobilization Type Myofascial Release,Rolling, Strumming Intensity/Depth Moderate IT band Body Location right ITB Mobilization Type Myofascial Release,Rolling, Strumming Intensity/Depth Moderate PT-OP-R Modalities Start: 05/10/19 13:53 Freq: Status: Active Protocol: Document 06/01/19 15:21 SAK (Rec: 06/01/19 15:52 SAK [id number]) Electric Stimulation Electric Stimulation Interferential Current (IFC) Body Location bilateral lumbar paraspinals Duration (Minutes) 15 Target/Sweep Sweep High/Low High Patient Position Sitting Combined With Heat/Cold Hot Pack Ultrasound Therapy Treatment Back Patient Position Sidelying Coupling Medium 8 Frequency Setting (mHz) 1 Mode Setting Continuous Duty Cycle 100% Comments bilateral lumbar paraspinals PT-OP-S Aquatic Treatment Start: 05/10/19 13:53 Freq: Status: Active Protocol: Document 07/11/19 11:00 CLB (Rec: 07/11/19 14:53 CLB [id number]) Aquatics Treatment Pool Entry/Exit Pool Entry/Exit Method Stairs Assistance Independent Water Walking [place] December Water Level Chest Level backward Water Level Chest Level Level of Assistance Standby Assistance Comments arms at side for inc core challenge [place] Water Level Chest Level Level of Assistance Standby Assistance Comments arms at sides for inc core challenge forward, side Water Level Chest Level Level of Assistance Standby Assistance,Verbal Cues Lower Extremity Exercises squats Reps/Duration 15x Comments cues for mm activation sequence Lower Extremity Stretches Single knee to chest bilat Reps/Duration 2x Comments gentle Upper Extremity Exercises sh flex/ext Details diana and unil Reps/Duration 10x Comments DLS emphasis shoulder hor ab/ad Details diana and unil Reps/Duration 10x Comments DLS emphasis [place] Activities [place] Activities Bicycle Other Activities deep water hang 10 min w/#5, [place] foam float bicycle with 2# diana x 15 min Equipment [place] foam float, neck float Duration 15 minutes Comments minimal to no UE support with bicycle Manual Techniques Aquatic Massage standing DTM to thoracolumbar paraspinals with patient leaning against pool edge. PT-OP-T Assessment and Plan Start: 05/10/19 13:53 Freq: Status: Active Protocol: Document 07/11/19 11:00 CLB (Rec: 07/11/19 14:53 CLB [id number]) Physical Therapy Assessment Goals range of motion Impairment stiffness throughout patient's trunk and hips Short Term Goal (STG) Instruct in HEP to address soft tissue mobility impairments STG Duration 06/21/19 Pharmacy Services Representative Goal (LTG) Patient to demonstrate improvements in overall flexibility throughout trunk and hips and be safe and independent with HEP and aquatic exercise program for long-term fitness and pain management. Strength Impairment weakness core and hips Short Term Goal (STG) Patient to begin land and aquatic exercise to address impairments in core and hip muscle strength STG Duration 06/21/19 Pharmacy Services Representative Goal (LTG) Improve strength to at least 4 +/5 throughout trunk and LE's with patient demonstrating safety and independence with HEP and aquatic exercise program for long-term fitness and pain management. LTG Duration 08/09/19 Pain Impairment Pain level 8/10 Short Term Goal (STG) Decrease pain to no greater than 5/10 STG Duration 06/21/19 [facility] Goal (LTG) Decrease pain to no greater than 3/10 LTG Duration 08/09/19 Gait Impairment Requires use of walker, unable to walk community distances Short Term Goal (STG) Patient able to walk for short community distances with use of cane without an increase in pain STG Duration 06/21/19 [facility] Goal (LTG) Patient able to ambulate without device for community distances. LTG Duration 08/09/19 Activity tolerance Impairment Oswestry disability index score 56% Short Term Goal (STG) Decrease Oswestry score to no greater than 40% to improve patient's tolerance for usual daily activities STG Duration 06/21/18 Pharmacy Services Representative Goal (LTG) Decrease Oswestry score to no greater than 25% with patient able to resume playing golf LTG Duration 08/09/19 Assessment Summary Assessment Pt continues to require verbal cues for posture throughout aquatic treatment. Pt report no increase in pain with tx today. Physical Therapy Plan Frequency and Duration Frequency of Treatment 2x/Week Duration of Treatment 12 wks Plan of Care Start Date 05/10/19 Plan of Care End Date 08/09/19 Next Visit Focus/Plan Next Note Type Treatment Note Next Visit Plan Add lunge walk, increased speed with walking and LE ex as tolerated. Trunk rotation strengthening as tolerated.
--- NOTE | 2019-07-13 16:23 | PT.OTN ---
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 LBP better when sits or lays down. For neck pain using compounded ointment. Went to pain clinic last week; met with physical therapist at who wants to consult with this PT. Patient states that therapist agreed with him doing aquatic therapy . Had x-ray today after lunging over car console to reach into passenger side floor, reports right sided thoracic pain. X-ray negative . Saw Dr. Dang last week. Pain medication use same. Sleeping only on left side since injuring ribs on right, so left side hurting. Not doing any HEP. Bilateral foot numbness right greater than left. Can't walk any significant distances due to pain with standing and walking Prior Treatments and Tests L45 laminectomy 07/20/19 prior lumbar laminectomy cervical fusion Future Testing and Treatments Planned Reports his 3 physicians to come up with plan for any further treatments or procedures Treatment Goals Patient/Caregiver Goals Be able to walk community distances without increase in pain, be able to golf. Prior Functional Status Baseline Function- ADL's Modified Independent Baseline Function- Mobility Modified Independent Baseline Function- Gait Independent without device Baseline Function- Work/School retored Baseline Function- Recreation/Hobbies frequent golfing Current Functional Impairments (Reported) Functional Limitations- ADL's independent but painful Functional Limitations- Mobility/Gait limited primarily to household due to need to sit frequently due to pain Functional Limitations- Work/School retired Functional Limitations- Recreation/ unable to golf or take walks Hobbies due to pain PT-OP-C Subjective Start: 05/10/19 13:53 Freq: Status: Active Protocol: Document 07/13/19 16:14 LJ (Rec: 07/13/19 16:23 LJ [id number]) OP-PT Subjective Patient Comments Patient Comments Jori is going to be out of pool therapy for 2 weeks due to upcoming cataract surgery PT-OP-J Posture/Palpation/Skin Start: 05/10/19 13:53 Freq: Status: Active Protocol: Document 05/10/19 13:53 SAK (Rec: 05/15/19 17:29 SAK [id number]) Posture Evaluation Position Standing Head/C-Spine Posture Forward Head L-Spine Posture Flattened Shoulder Posture (L) Rounded,(R) Rounded Hip Posture (L) Externally Rotated,(R) Externally Rotated Palpation Assessment Location diana lumbar paraspinals Palpation Findings Soft Tissue Tightness,Muscle Guarding,Tenderness Palpation Details tight diana, right greater than left PT-OP-K Range of Motion Start: 05/10/19 13:53 Freq: Status: Active Protocol: Document 05/10/19 13:53 SAK (Rec: 05/15/19 17:29 SAK [id number]) Lumbar Spine Range of Motion Lumbar Spine Active Degrees Testing Position Standing Flexion 20 Rotation Left 15 Rotation Right 15 Lateral Flexion Left 25 Lateral Flexion Right 25 ROM Limitations Soft Tissue Tightness,Pain Comments -10 deg ext with c/o increased pain Hip Goniometric Range of Motion Hip Left Flexion w/Knee Flexed 105 Straight Leg Raise 45 Internal Rotation 25 External Rotation 70 Right Flexion w/Knee Flexed 110 Straight Leg Raise 45 Internal Rotation 15 External Rotation 20 Hip ROM Limitations Comments -5 diana hip ext Ankle and Foot Goniometric Range of Motion Ankle and Foot idana Dorsiflexion with Knee Flexed 0 Ankle and Foot ROM Limitations ROM Limitations Soft Tissue Tightness Comments -5 ankle df with knee extended PT-OP-L Special Tests Start: 05/10/19 13:53 Freq: Status: Active Protocol: Document 05/10/19 13:53 [facility] (Rec: 05/15/19 17:29 [facility] [id number]) Special Tests Lumbar Spine Special Tests Manual Traction Test Results positive for increasing pain Horacio Test Results positive for hip flexor tightness diana Straight Leg Raise Test Results positive for muscle tightness not radicular pain Compression Test Results positive right Comments pain radiating to right posterior knee Hip Special Tests Scour Test Test Results negative diana PT-OP-M Strength Start: 05/10/19 13:53 Freq: Status: Active Protocol: Document 05/10/19 13:53 [facility] (Rec: 05/15/19 17:29 [facility] [id number]) Trunk Strength Trunk Manual Muscle Testing Flexion 3- Fair- Extension 2+ Poor+ Hip Strength Hip Manual Muscle Testing Left Flexion (L2) 4 Good Extension (S1) 2+ Poor+ Abduction 3- Fair- External Rotation 3+ Fair+ Internal Rotation 4- Good- Right Flexion (L2) 4 Good Extension (S1) 2+ Poor+ Abduction 3- Fair- External Rotation 3+ Fair+ Internal Rotation 4- Good- Knee Strength Knee Manual Muscle Testing diana Flexion (S2) 4+ Good+ Extension (L3) 4+ Good+ Ankle/Foot Strength Ankle and Foot Manual Muscle Testing Left Dorsiflexion (L4) 4+ Good+ Right Dorsiflexion (L4) 4 Good Plantarflexion (S1) 4 Good Toe Strength Toe Manual Muscle Testing Left Great Toe Flexion 4+ Good+ Extension 4+ Good+ Right Great Toe Flexion 4 Good Extension 4 Good PT-OP-Q Treatments Start: 05/10/19 13:53 Freq: Status: Active Protocol: Document 06/01/19 15:21 [facility] (Rec: 06/01/19 15:52 [facility] [id number]) Cardio Equipment Recumbent Stepper (Sci-Fit) Duration (Minutes) 11 Resistance 2 Seat Position 12 Gym Equipment Shuttle Recovery Bilateral Squats Resistance 50 Shuttle Recovery Platform Stable Reps/Time 10x3 Therapeutic Exercises Supine Exercises HC stretch Reps/Minutes 2x Comments manual IT band stretch Reps/Minutes 2x Comments gentle, SKTC Reps/Minutes 2x Comments opp LE straight for hip flexor stretch HS stretch Reps/Minutes 2x Comments manual Sitting Exercises row, sh ext Equipment Used L2 TB Reps/Minutes 10x Standing Exercises closed chain HS stretch Reps/Minutes 2x Comments forearms on thighs Manual Therapy Treatment Soft Tissue Mobilization hamstrings Body Position Sidelying right quadricep Mobilization Type Myofascial Release,Rolling, Strumming Intensity/Depth Moderate IT band Body Location right ITB Mobilization Type Myofascial Release,Rolling, Strumming Intensity/Depth Moderate PT-OP-R Modalities Start: 05/10/19 13:53 Freq: Status: Active Protocol: Document 06/01/19 15:21 SAK (Rec: 06/01/19 15:52 SAK [id number]) Electric Stimulation Electric Stimulation Interferential Current (IFC) Body Location bilateral lumbar paraspinals Duration (Minutes) 15 Target/Sweep Sweep High/Low High Patient Position Sitting Combined With Heat/Cold Hot Pack Ultrasound Therapy Treatment Back Patient Position Sidelying Coupling Medium 8 Frequency Setting (mHz) 1 Mode Setting Continuous Duty Cycle 100% Comments bilateral lumbar paraspinals PT-OP-S Aquatic Treatment Start: 05/10/19 13:53 Freq: Status: Active Protocol: Document 07/13/19 16:14 LJ (Rec: 07/13/19 16:23 LJ [email or web address]) Aquatics Treatment Pool Entry/Exit Pool Entry/Exit Method Stairs Assistance Independent Water Walking forward with UE paddles Water Level Chest Level Walking Equipment UE paddles Level of Assistance Standby Assistance,Verbal Cues Comments manual cues for relaxing shoulders Anderson March Water Level Chest Level walking with directional changes Water Level Chest Level Level of Assistance Standby Assistance backward Water Level Chest Level Level of Assistance Standby Assistance Comments arms at side for inc core challenge march Water Level Chest Level Level of Assistance Standby Assistance Comments arms at sides for inc core challenge forward, side Water Level Chest Level Level of Assistance Standby Assistance,Verbal Cues Lower Extremity Exercises squats Reps/Duration 15x Comments cues for mm activation sequence circles Details pain-free ROM Reps/Duration 10x ea direction Comments mod UE support hip flex/ext Details gentle Reps/Duration 10x Comments mod UE support hip ab/ad Reps/Duration 10x Comments mod UE support heel toe raise Reps/Duration 10x Lower Extremity Stretches Single knee to chest bilat Reps/Duration 2x Comments gentle Upper Extremity Exercises figure 8s Body Position Standing Water Level Chest Level Equipment smile face Reps/Duration 3 min Comments bialt sh flex/ext Details diana and unil Water Level Chest Level Equipment UE paddles Reps/Duration 10x Comments DLS emphasis shoulder hor ab/ad Details diana and unil Water Level Chest Level Equipment UE paddles Reps/Duration 10x Comments DLS emphasis Golf Swing Body Position Standing Water Level Waist Level Equipment UE paddles Reps/Duration 5 Alsea Activities Alsea Activities Bicycle Other Activities deep water hang 10 min w/#5, [place] foam float bicycle with 2# diana x 15 min Equipment [place] foam float, neck float Duration 15 minutes Comments minimal to no UE support with bicycle Manual Techniques Aquatic Massage standing DTM to thoracolumbar paraspinals with patient leaning against pool edge. PT-OP-T Assessment and Plan Start: 05/10/19 13:53 Freq: Status: Active Protocol: Document 07/13/19 16:14 FLACO (Rec: 07/13/19 16:23 LJ [email or web address]) Physical Therapy Assessment Goals range of motion Impairment stiffness throughout patient's trunk and hips Short Term Goal (STG) Instruct in HEP to address soft tissue mobility impairments STG Duration 06/21/19 Fpc Goal (LTG) Patient to demonstrate improvements in overall flexibility throughout trunk and hips and be safe and independent with HEP and aquatic exercise program for long-term fitness and pain management. Strength Impairment weakness core and hips Short Term Goal (STG) Patient to begin land and aquatic exercise to address impairments in core and hip muscle strength STG Duration 06/21/19 Fpc Goal (LTG) Improve strength to at least 4 +/5 throughout trunk and LE's with patient demonstrating safety and independence with HEP and aquatic exercise program for long-term fitness and pain management. LTG Duration 08/09/19 Pain Impairment Pain level 8/10 Short Term Goal (STG) Decrease pain to no greater than 5/10 STG Duration 06/21/19 Pe Manager Goal (LTG) Decrease pain to no greater than 3/10 LTG Duration 08/09/19 Gait Impairment Requires use of walker, unable to walk community distances Short Term Goal (STG) Patient able to walk for short community distances with use of cane without an increase in pain STG Duration 06/21/19 Fpc Goal (LTG) Patient able to ambulate without device for community distances. LTG Duration 08/09/19 Activity tolerance Impairment Oswestry disability index score 56% Short Term Goal (STG) Decrease Oswestry score to no greater than 40% to improve patient's tolerance for usual daily activities STG Duration 06/21/18 Pe Manager Goal (LTG) Decrease Oswestry score to no greater than 25% with patient able to resume playing golf LTG Duration 08/09/19 Assessment Summary Assessment Pt continues to require verbal cues for posture throughout aquatic treatment. Pt report no increase in pain with tx today. Pt able to use UE paddles with UE exercises with no c/o pain. States it used to hurt but doesn't anymore Physical Therapy Plan Frequency and Duration Frequency of Treatment 2x/Week Duration of Treatment 12 wks Plan of Care Start Date 05/10/19 Plan of Care End Date 08/09/19 Therapeutic Interventions Therapeutic Interventions Aquatic Therapy,Gait Training, Home Exercise Program,Manual Therapy,Patient/Caregiver Education,Self-Care/Home Management,Soft Tissue Mobilization,Taping, Therapeutic Activities, Therapeutic Exercises Modalities Cold Pack/Ice Massage,Electric Stimulation,Hot Packs, Traction- Mechanical, Ultrasound Next Visit Focus/Plan Next Note Type Treatment Note Next Visit Plan Add lunge walk, increased speed with walking and LE ex as tolerated. Trunk rotation strengthening as tolerated.
--- NOTE | 2019-08-15 12:15 | PT.OTN ---
Current Diagnoses Stiffness of unspecified joint, not elsewhere classified (07/13/19) Radiculopathy, lumbar region (07/13/19) Low back pain (07/13/19) Abnormal posture (07/13/19) Weakness (07/13/19) Physical Therapy Treatment Note PT-OP-A Visit Information Start: 05/10/19 13:53 Freq: Status: Active Protocol: Document 08/15/19 11:30 CLB (Rec: 08/15/19 13:39 CLB [id number]) Out-Patient Physical Therapy Visit Information Visit Information Visit Type Aquatic Treatment Note Visit Start Time 11:30 Visit Stop Time 12:15 Total Visit Minutes 45 Visit Number 13 Number of CUE WORKER Visits 3 PT-OP-B Current Condition Start: 05/10/19 13:53 Freq: Status: Active Protocol: Document 05/10/19 13:53 SAK (Rec: 05/10/19 14:33 SAK [id number]) Current Condition History of Current Condition Onset Date 07/20/19 Current Complaints worsening LBP, inability to tolerate upright activity History of Current Condition Since last seen LE pain into right LE just posterior lateral right knee instead of all the way to his foot, but reports an increase in back pain. LBP better when sits or lays down. For neck pain using compounded ointment. Went to pain clinic last week; met with physical therapist at who wants to consult with this PT. Patient states that therapist agreed with him doing aquatic therapy . Had x-ray today after lunging over car console to reach into passenger side floor, reports right sided thoracic pain. X-ray negative . Saw Dr. Dang last week. Pain medication use same. Sleeping only on left side since injuring ribs on right, so left side hurting. Not doing any HEP. Bilateral foot numbness right greater than left. Can't walk any significant distances due to pain with standing and walking Prior Treatments and Tests L45 laminectomy 07/20/19 prior lumbar laminectomy cervical fusion Future Testing and Treatments Planned Reports his 3 physicians to come up with plan for any further treatments or procedures Treatment Goals Patient/Caregiver Goals Be able to walk community distances without increase in pain, be able to golf. Prior Functional Status Baseline Function- ADL's Modified Independent Baseline Function- Mobility Modified Independent Baseline Function- Gait Independent without device Baseline Function- Work/School retored Baseline Function- Recreation/Hobbies frequent golfing Current Functional Impairments (Reported) Functional Limitations- ADL's independent but painful Functional Limitations- Mobility/Gait limited primarily to household due to need to sit frequently due to pain Functional Limitations- Work/School retired Functional Limitations- Recreation/ unable to golf or take walks Hobbies due to pain PT-OP-C Subjective Start: 05/10/19 13:53 Freq: Status: Active Protocol: Document 08/15/19 11:30 CLB (Rec: 08/15/19 13:39 CLB [id number]) OP-PT Subjective Patient Comments Patient Comments Pt happy he is able to get back into the pool. Stated his right hamstring is less sore. PT-OP-J Posture/Palpation/Skin Start: 05/10/19 13:53 Freq: Status: Active Protocol: Document 05/10/19 13:53 SAK (Rec: 05/15/19 17:29 SAK [id number]) Posture Evaluation Position Standing Head/C-Spine Posture Forward Head L-Spine Posture Flattened Shoulder Posture (L) Rounded,(R) Rounded Hip Posture (L) Externally Rotated,(R) Externally Rotated Palpation Assessment Location diana lumbar paraspinals Palpation Findings Soft Tissue Tightness,Muscle Guarding,Tenderness Palpation Details tight diana, right greater than left PT-OP-K Range of Motion Start: 05/10/19 13:53 Freq: Status: Active Protocol: Document 05/10/19 13:53 SAK (Rec: 05/15/19 17:29 SAK [id number]) Lumbar Spine Range of Motion Lumbar Spine Active Degrees Testing Position Standing Flexion 20 Rotation Left 15 Rotation Right 15 Lateral Flexion Left 25 Lateral Flexion Right 25 ROM Limitations Soft Tissue Tightness,Pain Comments -10 deg ext with c/o increased pain Hip Goniometric Range of Motion Hip Left Flexion w/Knee Flexed 105 Straight Leg Raise 45 Internal Rotation 25 External Rotation 70 Right Flexion w/Knee Flexed 110 Straight Leg Raise 45 Internal Rotation 15 External Rotation 20 Hip ROM Limitations Comments -5 diana hip ext Ankle and Foot Goniometric Range of Motion Ankle and Foot diana Dorsiflexion with Knee Flexed 0 Ankle and Foot ROM Limitations ROM Limitations Soft Tissue Tightness Comments -5 ankle df with knee extended PT-OP-L Special Tests Start: 05/10/19 13:53 Freq: Status: Active Protocol: Document 05/10/19 13:53 [facility] (Rec: 05/15/19 17:29 [facility] [id number]) Special Tests Lumbar Spine Special Tests Manual Traction Test Results positive for increasing pain Horacio Test Results positive for hip flexor tightness diana Straight Leg Raise Test Results positive for muscle tightness not radicular pain Compression Test Results positive right Comments pain radiating to right posterior knee Hip Special Tests Scour Test Test Results negative diana PT-OP-M Strength Start: 05/10/19 13:53 Freq: Status: Active Protocol: Document 05/10/19 13:53 [facility] (Rec: 05/15/19 17:29 [facility] [id number]) Trunk Strength Trunk Manual Muscle Testing Flexion 3- Fair- Extension 2+ Poor+ Hip Strength Hip Manual Muscle Testing Left Flexion (L2) 4 Good Extension (S1) 2+ Poor+ Abduction 3- Fair- External Rotation 3+ Fair+ Internal Rotation 4- Good- Right Flexion (L2) 4 Good Extension (S1) 2+ Poor+ Abduction 3- Fair- External Rotation 3+ Fair+ Internal Rotation 4- Good- Knee Strength Knee Manual Muscle Testing diana Flexion (S2) 4+ Good+ Extension (L3) 4+ Good+ Ankle/Foot Strength Ankle and Foot Manual Muscle Testing Left Dorsiflexion (L4) 4+ Good+ Right Dorsiflexion (L4) 4 Good Plantarflexion (S1) 4 Good Toe Strength Toe Manual Muscle Testing Left Great Toe Flexion 4+ Good+ Extension 4+ Good+ Right Great Toe Flexion 4 Good Extension 4 Good PT-OP-Q Treatments Start: 05/10/19 13:53 Freq: Status: Active Protocol: Document 06/01/19 15:21 [facility] (Rec: 06/01/19 15:52 [facility] [id number]) Cardio Equipment Recumbent Stepper (Sci-Fit) Duration (Minutes) 11 Resistance 2 Seat Position 12 Gym Equipment Shuttle Recovery Bilateral Squats Resistance 50 Shuttle Recovery Platform Stable Reps/Time 10x3 Therapeutic Exercises Supine Exercises HC stretch Reps/Minutes 2x Comments manual IT band stretch Reps/Minutes 2x Comments gentle, SKTC Reps/Minutes 2x Comments opp LE straight for hip flexor stretch HS stretch Reps/Minutes 2x Comments manual Sitting Exercises row, sh ext Equipment Used L2 TB Reps/Minutes 10x Standing Exercises closed chain HS stretch Reps/Minutes 2x Comments forearms on thighs Manual Therapy Treatment Soft Tissue Mobilization hamstrings Body Position Sidelying right quadricep Mobilization Type Myofascial Release,Rolling, Strumming Intensity/Depth Moderate IT band Body Location right ITB Mobilization Type Myofascial Release,Rolling, Strumming Intensity/Depth Moderate PT-OP-R Modalities Start: 05/10/19 13:53 Freq: Status: Active Protocol: Document 06/01/19 15:21 SAK (Rec: 06/01/19 15:52 SAK [id number]) Electric Stimulation Electric Stimulation Interferential Current (IFC) Body Location bilateral lumbar paraspinals Duration (Minutes) 15 Target/Sweep Sweep High/Low High Patient Position Sitting Combined With Heat/Cold Hot Pack Ultrasound Therapy Treatment Back Patient Position Sidelying Coupling Medium 8 Frequency Setting (mHz) 1 Mode Setting Continuous Duty Cycle 100% Comments bilateral lumbar paraspinals PT-OP-S Aquatic Treatment Start: 05/10/19 13:53 Freq: Status: Active Protocol: Document 08/15/19 11:30 CLB (Rec: 08/15/19 13:39 CLB [id number]) Aquatics Treatment Water Walking lunge Water Level Chest Level Comments cues for posture and mm activation forward with UE paddles Water Level Chest Level Walking Equipment UE paddles Level of Assistance Standby Assistance,Verbal Cues Comments manual cues for relaxing shoulders walking with directional changes Water Level Chest Level Level of Assistance Standby Assistance backward Water Level Chest Level Level of Assistance Standby Assistance Comments arms at side for inc core challenge december Water Level Chest Level Level of Assistance Standby Assistance Comments arms at sides for inc core challenge forward, side Water Level Chest Level Level of Assistance Standby Assistance,Verbal Cues Lower Extremity Exercises HS curl at wall Water Level Chest Level Comments holding on to wall, cues for posture knee flex/ext Reps/Duration 10x bilat Comments (with 90 deg hip flex) squats Reps/Duration 15x Comments cues for mm activation sequence circles Details pain-free ROM Reps/Duration 10x ea direction Comments mod UE support hip flex/ext Details gentle Reps/Duration 10x Comments mod UE support hip ab/ad Reps/Duration 10x Comments mod UE support heel toe raise Reps/Duration 10x Marston Activities Marston Activities Bicycle Other Activities deep water hang 10 min w/#5, pilot station foam float bicycle with 2# diana x 15 min Equipment pilot station foam float, neck float Duration 15 minutes Comments minimal to no UE support with bicycle PT-OP-T Assessment and Plan Start: 05/10/19 13:53 Freq: Status: Active Protocol: Document 08/15/19 11:30 CLB (Rec: 08/15/19 13:39 CLB [id number]) Physical Therapy Assessment Goals range of motion Impairment stiffness throughout patient's trunk and hips Short Term Goal (STG) Instruct in HEP to address soft tissue mobility impairments STG Duration 06/21/19 Loss Prevention Leader Goal (LTG) Patient to demonstrate improvements in overall flexibility throughout trunk and hips and be safe and independent with HEP and aquatic exercise program for long-term fitness and pain management. Strength Impairment weakness core and hips Short Term Goal (STG) Patient to begin land and aquatic exercise to address impairments in core and hip muscle strength STG Duration 06/21/19 Loss Prevention Leader Goal (LTG) Improve strength to at least 4 +/5 throughout trunk and LE's with patient demonstrating safety and independence with HEP and aquatic exercise program for long-term fitness and pain management. LTG Duration 08/09/19 Pain Impairment Pain level 8/10 Short Term Goal (STG) Decrease pain to no greater than 5/10 STG Duration 06/21/19 Fpc Goal (LTG) Decrease pain to no greater than 3/10 LTG Duration 08/09/19 Gait Impairment Requires use of walker, unable to walk community distances Short Term Goal (STG) Patient able to walk for short community distances with use of cane without an increase in pain STG Duration 06/21/19 Loss Prevention Leader Goal (LTG) Patient able to ambulate without device for community distances. LTG Duration 08/09/19 Activity tolerance Impairment Oswestry disability index score 56% Short Term Goal (STG) Decrease Oswestry score to no greater than 40% to improve patient's tolerance for usual daily activities STG Duration 06/21/18 Loss Prevention Leader Goal (LTG) Decrease Oswestry score to no greater than 25% with patient able to resume playing golf LTG Duration 08/09/19 Assessment Summary Assessment Pt doing well with pool therapy w/o increase in pain. Pt continues to stay close to pool edge while in deep water but is able to challenge himself with depth during UE exercises and water walking. Physical Therapy Plan Frequency and Duration Frequency of Treatment 2x/Week Duration of Treatment 12 wks Plan of Care Start Date 05/10/19 Plan of Care End Date 08/09/19 Therapeutic Interventions Therapeutic Interventions Aquatic Therapy,Gait Training, Home Exercise Program,Manual Therapy,Patient/Caregiver Education,Self-Care/Home Management,Soft Tissue Mobilization,Taping, Therapeutic Activities, Therapeutic Exercises Modalities Cold Pack/Ice Massage,Electric Stimulation,Hot Packs, Traction- Mechanical, Ultrasound Next Visit Focus/Plan Next Note Type Treatment Note Next Visit Plan Increased speed with walking and LE ex as tolerated. Trunk rotation strengthening as tolerated.
--- NOTE | 2019-09-07 10:41 | PT.OTN ---
Current Diagnoses Stiffness of unspecified joint, not elsewhere classified (09/07/19) Radiculopathy, lumbar region (09/07/19) Low back pain (09/07/19) Abnormal posture (09/07/19) Weakness (09/07/19) Physical Therapy Treatment Note PT-OP-A Visit Information Start: 05/10/19 13:53 Freq: Status: Active Protocol: Document 09/07/19 08:19 [facility] (Rec: 09/07/19 08:31 [facility] [id number]) Out-Patient Physical Therapy Visit Information Visit Information Visit Type Treatment Note Visit Start Time 08:15 Visit Stop Time 09:10 Total Visit Minutes 55 Visit Number 14 Number of OUTPATIENT RECEPTIONIST Visits 0 PT-OP-B Current Condition Start: 05/10/19 13:53 Freq: Status: Active Protocol: Document 05/10/19 13:53 [facility] (Rec: 05/10/19 14:33 [facility] [id number]) Current Condition History of Current Condition Onset Date 07/20/19 Current Complaints worsening LBP, inability to tolerate upright activity History of Current Condition Since last seen LE pain into right LE just posterior lateral right knee instead of all the way to his foot, but reports an increase in back pain. LBP better when sits or lays down. For neck pain using compounded ointment. Went to pain clinic last week; met with physical therapist at who wants to consult with this PT. Patient states that therapist agreed with him doing aquatic therapy . Had x-ray today after lunging over car console to reach into passenger side floor, reports right sided thoracic pain. X-ray negative . Saw Dr. Dang last week. Pain medication use same. Sleeping only on left side since injuring ribs on right, so left side hurting. Not doing any HEP. Bilateral foot numbness right greater than left. Can't walk any significant distances due to pain with standing and walking Prior Treatments and Tests L45 laminectomy 07/20/19 prior lumbar laminectomy cervical fusion Future Testing and Treatments Planned Reports his 3 physicians to come up with plan for any further treatments or procedures Treatment Goals Patient/Caregiver Goals Be able to walk community distances without increase in pain, be able to golf. Prior Functional Status Baseline Function- ADL's Modified Independent Baseline Function- Mobility Modified Independent Baseline Function- Gait Independent without device Baseline Function- Work/School retored Baseline Function- Recreation/Hobbies frequent golfing Current Functional Impairments (Reported) Functional Limitations- ADL's independent but painful Functional Limitations- Mobility/Gait limited primarily to household due to need to sit frequently due to pain Functional Limitations- Work/School retired Functional Limitations- Recreation/ unable to golf or take walks Hobbies due to pain PT-OP-C Subjective Start: 05/10/19 13:53 Freq: Status: Active Protocol: Document 09/07/19 08:19 [facility] (Rec: 09/07/19 08:31 [facility] [id number]) OP-PT Subjective Patient Comments Patient Comments Reports having an injection right groin tomorrow. Hamstring pain mostly resolved right LE; feels due to rest. Wasn't using walker much until hospitalization 2 weeks ago due to bladder infection. Missed PT appointments due to this PT being gone. After today will be out of town for 45 days. PT-OP-J Posture/Palpation/Skin Start: 05/10/19 13:53 Freq: Status: Active Protocol: Document 05/10/19 13:53 [facility] (Rec: 05/15/19 17:29 [facility] [id number]) Posture Evaluation Position Standing Head/C-Spine Posture Forward Head L-Spine Posture Flattened Shoulder Posture (L) Rounded,(R) Rounded Hip Posture (L) Externally Rotated,(R) Externally Rotated Palpation Assessment Location diana lumbar paraspinals Palpation Findings Soft Tissue Tightness,Muscle Guarding,Tenderness Palpation Details tight diana, right greater than left PT-OP-K Range of Motion Start: 05/10/19 13:53 Freq: Status: Active Protocol: Document 05/10/19 13:53 [facility] (Rec: 05/15/19 17:29 [facility] [id number]) Lumbar Spine Range of Motion Lumbar Spine Active Degrees Testing Position Standing Flexion 20 Rotation Left 15 Rotation Right 15 Lateral Flexion Left 25 Lateral Flexion Right 25 ROM Limitations Soft Tissue Tightness,Pain Comments -10 deg ext with c/o increased pain Hip Goniometric Range of Motion Hip Left Flexion w/Knee Flexed 105 Straight Leg Raise 45 Internal Rotation 25 External Rotation 70 Right Flexion w/Knee Flexed 110 Straight Leg Raise 45 Internal Rotation 15 External Rotation 20 Hip ROM Limitations Comments -5 diana hip ext Ankle and Foot Goniometric Range of Motion Ankle and Foot diana Dorsiflexion with Knee Flexed 0 Ankle and Foot ROM Limitations ROM Limitations Soft Tissue Tightness Comments -5 ankle df with knee extended PT-OP-L Special Tests Start: 05/10/19 13:53 Freq: Status: Active Protocol: Document 05/10/19 13:53 [facility] (Rec: 05/15/19 17:29 [facility] [id number]) Special Tests Lumbar Spine Special Tests Manual Traction Test Results positive for increasing pain Horacio Test Results positive for hip flexor tightness diana Straight Leg Raise Test Results positive for muscle tightness not radicular pain Compression Test Results positive right Comments pain radiating to right posterior knee Hip Special Tests Scour Test Test Results negative diana PT-OP-M Strength Start: 05/10/19 13:53 Freq: Status: Active Protocol: Document 05/10/19 13:53 [facility] (Rec: 05/15/19 17:29 [facility] [id number]) Trunk Strength Trunk Manual Muscle Testing Flexion 3- Fair- Extension 2+ Poor+ Hip Strength Hip Manual Muscle Testing Left Flexion (L2) 4 Good Extension (S1) 2+ Poor+ Abduction 3- Fair- External Rotation 3+ Fair+ Internal Rotation 4- Good- Right Flexion (L2) 4 Good Extension (S1) 2+ Poor+ Abduction 3- Fair- External Rotation 3+ Fair+ Internal Rotation 4- Good- Knee Strength Knee Manual Muscle Testing diana Flexion (S2) 4+ Good+ Extension (L3) 4+ Good+ Ankle/Foot Strength Ankle and Foot Manual Muscle Testing Left Dorsiflexion (L4) 4+ Good+ Right Dorsiflexion (L4) 4 Good Plantarflexion (S1) 4 Good Toe Strength Toe Manual Muscle Testing Left Great Toe Flexion 4+ Good+ Extension 4+ Good+ Right Great Toe Flexion 4 Good Extension 4 Good PT-OP-Q Treatments Start: 05/10/19 13:53 Freq: Status: Active Protocol: Document 09/07/19 08:19 [facility] (Rec: 09/07/19 10:39 [facility] [id number]) Cardio Equipment Recumbent Stepper (Sci-Fit) Duration (Minutes) 10 Resistance 2 Seat Position 12 Manual Therapy Treatment Soft Tissue Mobilization lumbar paraspinals, piriformis Mobilization Type Myofascial Release,Rolling, Strumming Intensity/Depth Moderate Body Position left sidelying PT-OP-R Modalities Start: 05/10/19 13:53 Freq: Status: Active Protocol: Document 09/07/19 08:19 [facility] (Rec: 09/07/19 10:39 [facility] [id number]) Electric Stimulation Electric Stimulation Interferential Current (IFC) Body Location bilateral lumbar paraspinals Duration (Minutes) 15 Target/Sweep Sweep High/Low High Patient Position Sitting Combined With Heat/Cold Hot Pack Ultrasound Therapy Treatment Back Patient Position Sidelying Coupling Medium 8 Frequency Setting (mHz) 1 Mode Setting Continuous Duty Cycle 100% Comments bilateral lumbar paraspinals PT-OP-S Aquatic Treatment Start: 05/10/19 13:53 Freq: Status: Active Protocol: Document 08/15/19 11:30 [facility] (Rec: 08/15/19 13:39 [facility] [id number]) Aquatics Treatment Water Walking lunge Water Level Chest Level Comments cues for posture and mm activation forward with UE paddles Water Level Chest Level Walking Equipment UE paddles Level of Assistance Standby Assistance,Verbal Cues Comments manual cues for relaxing shoulders walking with directional changes Water Level Chest Level Level of Assistance Standby Assistance backward Water Level Chest Level Level of Assistance Standby Assistance Comments arms at side for inc core challenge march Water Level Chest Level Level of Assistance Standby Assistance Comments arms at sides for inc core challenge forward, side Water Level Chest Level Level of Assistance Standby Assistance,Verbal Cues Lower Extremity Exercises HS curl at wall Water Level Chest Level Comments holding on to wall, cues for posture knee flex/ext Reps/Duration 10x bilat Comments (with 90 deg hip flex) squats Reps/Duration 15x Comments cues for mm activation sequence circles Details pain-free ROM Reps/Duration 10x ea direction Comments mod UE support hip flex/ext Details gentle Reps/Duration 10x Comments mod UE support hip ab/ad Reps/Duration 10x Comments mod UE support heel toe raise Reps/Duration 10x [place] Activities [place] Activities Bicycle Other Activities deep water hang 10 min w/#5, pechanga foam float bicycle with 2# diana x 15 min Equipment pechanga foam float, neck float Duration 15 minutes Comments minimal to no UE support with bicycle PT-OP-T Assessment and Plan Start: 05/10/19 13:53 Freq: Status: Active Protocol: Document 09/07/19 08:19 [facility] (Rec: 09/07/19 08:31 [facility] [id number]) Physical Therapy Assessment Goals range of motion Impairment stiffness throughout patient's trunk and hips Short Term Goal (STG) Instruct in HEP to address soft tissue mobility impairments STG Duration 06/21/19 Jail Goal (LTG) Patient to demonstrate improvements in overall flexibility throughout trunk and hips and be safe and independent with HEP and aquatic exercise program for long-term fitness and pain management. 09/07/19: flexibility still limited due to patient c/o pain with flexibility exercises and reluctance to work on this. Is independent with HEP and aquatic exercise program. Will be gone 45 days so plans to continue with this independently. Strength Impairment weakness core and hips Short Term Goal (STG) Patient to begin land and aquatic exercise to address impairments in core and hip muscle strength STG Duration [facility] Goal (LTG) Improve strength to at least 4 +/5 throughout trunk and LE's with patient demonstrating safety and independence with HEP and aquatic exercise program for long-term fitness and pain management. 09/07/19: poor tolerance to manual muscle testing due to c /o in crease in pain. Functional strength had been improving but hospitalization 2 wks ago for UTI caused decline with patient back to using FWW for mobility. Pain Impairment Pain level 8/10 Short Term Goal (STG) Decrease pain to no greater than 5/10 09/07/19: goal progress, 6/10 STG Duration 06/21/19 Jail Goal (LTG) Decrease pain to no greater than 3/10 unmet LTG Duration 08/09/19 Gait Impairment Requires use of walker, unable to walk community distances Short Term Goal (STG) Patient able to walk for short community distances with use of cane without an increase in pain 09/07/19: had been progressing with this but has declined in ability due to recent UTI. STG Duration 06/21/19 [employer] Goal (LTG) Patient able to ambulate without device for community distances. 09/07/19: unmet LTG Duration 08/09/19 Activity tolerance Impairment Oswestry disability index score 56% Short Term Goal (STG) Decrease Oswestry score to no greater than 40% to improve patient's tolerance for usual daily activities 09/07/19: 52% STG Duration 06/21/18 [employer] Goal (LTG) Decrease Oswestry score to no greater than 25% with patient able to resume playing golf 09/07/19: 52% LTG Duration 08/09/19 Assessment Summary Assessment This will be last PT visit; patient to have hip injection tomorrow and then be gone for 45 days. May benefit from further PT in the future. Physical Therapy Plan Frequency and Duration Frequency of Treatment 1x/Week Duration of Treatment 4 wks Plan of Care Start Date 08/15/19 Plan of Care End Date 09/07/19 Therapeutic Interventions Therapeutic Interventions Aquatic Therapy,Gait Training, Home Exercise Program,Manual Therapy,Patient/Caregiver Education,Self-Care/Home Management,Soft Tissue Mobilization,Taping, Therapeutic Activities, Therapeutic Exercises Modalities Cold Pack/Ice Massage,Electric Stimulation,Hot Packs, Traction- Mechanical, Ultrasound Discharge Physical Therapy Discharge Comments Patient to be out of town for 45 days, will need to be discharged from PT after today 's PT treatment.
== END 2019-09-07 09:15 ==
LOC: PHYS 08:15
PROVIDERS: PCP Family Medicine; Visit Provider Family Medicine
DX: M54.16 Radiculopathy, lumbar region (principal); M54.5 Low back pain; R29.3 Abnormal posture; R53.1 Weakness; M25.60 Stiffness of unspecified joint, not elsewhere classified
CPT/HCPCS: 97014; 97035; 97110; 97113; 97140; 97162; 97535; G0283

== ENCOUNTER → 2019-12-16 10:50 | Outpatient (CLI) | payer MEDICARE, OTHER, SELFPAY ==
--- NOTE | 2019-12-23 09:02 | PM.PFT.1 ---
Pulmonary Function Test Referral & Results Date Patient Seen: 12/16/19 Requesting provider: Shiva Tirado Results: The spirometry demonstrates an FVC of 2.18 L which is 48% of predicted. The FEV1 was measured at 1.80 L which is 56% of predicted. The FEV1/FVC ratio was 83 which is 115% of predicted. Following the administration of bronchodilator there was no significant change. Lung volumes show an SVC of 2.09 L which is 43% of predicted. The diffusing capacity was measured at 15.61 which is 42% of predicted. No hemoglobin value was provided, so no correction for potential anemia could be made, if appropriate. The maximum voluntary ventilation was reduced Interpretation: This study demonstrates mild to moderate obstructive lung disease based on reduction FEV1 without evidence of improvement following bronchodilator. There is more significant reduction in lung volumes suggesting more significant restrictive lung disease. There is a moderately severe reduction in diffusing capacity as well suggesting significant disease of the capillary alveolar level Overall based on the significant reduction in lung volumes and significant restrictive lung disease and relatively severe reduction in diffusing capacity this is most consistent with an interstitial lung disease rather than COPD Clinical correlation suggested
== END ==
PROVIDERS: Family Provider Family Medicine; PCP Family Medicine; Referring Provider Family Medicine; Visit Provider Family Medicine
DX: R06.02 Shortness of breath (principal); Z87.891 Personal history of nicotine dependence; J98.8 Other specified respiratory disorders
CPT/HCPCS: 94060; 94726; 94729

== ENCOUNTER 2019-12-18 18:29 | Emergency (ER) | payer MEDICARE, OTHER, SELFPAY ==
[2019-12-18 18:37] VITALS: BP 126/65; PULSE 56; RESP 18; TEMP 36.3; O2SAT 99; BMI 25.9
--- NOTE | 2019-12-18 19:23 | ED.SKABFB ---
HPI - Skin/Abscess/Foreign Bdy <TOÑO Aguilar - Last Filed: 12/18/19 19:57> General Chief complaint: Skin/Abscess/Foreign Body Stated complaint: food stuck in throat Time Seen by Provider: 12/18/19 18:53 Source: patient Mode of arrival: Family Vehicle Limitations: no limitations History of Present Illness HPI narrative: This is a pleasant 79-year-old male, former smoker, who presents to ED with food particle lodged in esophagus. Patient reports has history of esophageal stricture and he had a dinner at the [employer] and ate white turkey mid which was dry and talk off. He states he probably did not cut up his meat into small pieces and did not chew well before swallowing. On the way leaving the restaurant patient spit up some food particles. After he arrived to home patient drink water and heard gurgling noise. Patient reports initially had discomfort in epigastric region which has been resolving. Patient denies dyspnea, dysphagia, and is able to manage his oral secretion without difficulty. Patient denies history of EGD to remove foreign body in esophagus. Patient drove to ED on his own. Related Data Home Medications Medication Instructions Recorded Confirmed aspirin 81 mg PO QDAY #0 08/28/12 11/25/19 docusate sodium 250 mg PO Q DAY #0 08/28/12 11/25/19 lisinopril 5 mg PO QDAY #0 03/25/17 11/25/19 metoprolol tartrate [Lopressor] 25 mg PO BID #0 03/25/17 11/25/19 atorvastatin 40 mg tablet 40 mg PO DAILY 07/29/18 11/25/19 nitroglycerin 0.4 mg sublingual 0.4 mg SL Q5-15M PRN 03/16/19 11/25/19 tablet Previous Rx's Medication Instructions Recorded Disabled Parking Pass #1 ea 09/29/18 CMP KCCDGT //2/3/6/2% See Rx Instructions .ROUTE 08/10/19 .COMPLEX #200 each NS ibuprofen 600 mg tablet See Rx Instructions .ROUTE 08/10/19 .COMPLEX #90 tablet meclizine 25 mg tablet 25 mg PO DAILY PRN #30 tab 08/31/19 tizanidine 2 mg tablet See Rx Instructions .ROUTE 11/16/19 .COMPLEX #270 tablet gabapentin 300 mg capsule 600 mg PO TID #180 cap 11/17/19 albuterol sulfate 90 mcg/actuation 2 puff INHALATION Q6H PRN #25.5 11/25/19 aerosol inhaler gram hydrocodone 5 mg-acetaminophen 325 1 tab PO TID #90 tab 12/06/19 mg tablet metoclopramide HCl 5 - 10 mg PO QAC PRN #200 ml 12/18/19 Allergies Allergy/AdvReac Type Severity Reaction Status Date / Time propoxyphene [From Darvon] Allergy Verified 12/18/19 18:41 Review of Systems <TOÑO Aguilar - Last Filed: 12/18/19 19:57> Review of Systems Narrative: General: Denies fever, chills, fatigue, malaise, sweats. HEENT: Denies sinus pain, ear pain, sore throat, difficulty swallowing, dizziness. Respiratory: Denies dyspnea, cough, wheezing, hemoptysis, sputum. Cardiovascular: Denies chest pain, palpitations, orthopnea, edema. Gastrointestinal: See HPI : Denies dysuria, frequency, incontinence, hematuria, urinary retention. Musculoskeletal: Denies weakness, joint pain or bony pain. Skin: Denies rash, skin lesions, or other. Neurologic: Denies weakness, headache, numbness, change in speech, confusion, seizures, incoordination. Psychiatric: No concerning psychosocial issues. 12-point review of systems is negative except for those stated above. Patient History <TOÑO Aguilar - Last Filed: 12/18/19 19:57> Medical History Atrial fibrillation (Resolved ~1993) Bladder cancer (Resolved) BPH (benign prostatic hyperplasia) (Chronic) Cervical spine disease (Chronic) Chronic neck pain (Chronic) Coronary artery disease (Chronic) GERD (gastroesophageal reflux disease) (Chronic) Hypertension (Chronic) Myocardial infarction (Resolved 1978) Thoracic aortic aneurysm (Acute) Surgical History History of abdominal aortic aneurysm repair (Resolved ~2006) Hx of cervical discectomy (Resolved) Hx of coronary artery bypass graft (Resolved ~1980) Hx of laminectomy (Resolved ~04/2016) Hx of transurethral resection of prostate (Resolved) S/P carotid endarterectomy (Resolved ~1990) Family History Father No problems noted. Mother No problems noted. Social History Smoking Status: Former smoker Tobacco: How many years used: 19 second hand exposure: No alcohol intake: never substance use type: does not use Smoking Status: Former smoker alcohol intake frequency: holidays/special occasions only Substance Use Type: does not use Exam <TOÑO Aguilar - Last Filed: 12/18/19 19:57> Narrative Exam Narrative: General appearance: well developed, well nourished, in no acute distress. Head: normocephalic, atraumatic, no scalp lesions, non-tender. ENT: Hearing grossly intact. Nose without bleeding, purulent discharge or deviation. Mucous membrane moist, no mucosal lesion. Throat without erythema, tonsillar hypertrophy or exudate. Uvula in midline, airway patent. Neck/Thyroid: neck supple, full range of motion, no visible masses or meningeal signs. No JVD, non-tender without lymphadenopathy. Skin: no suspicious rashes, lesions over visible areas. Warm and dry and appropriate color for ethnicity. Heart: no clubbing, no cyanosis, no edema. S1 and S2 normal. RRR w/o murmurs or bruits. Lungs: Breathing even and unlabored. No stridor. No accessory muscles used. Able to speak in full sentences. Chest: normal shape and expansion. Abdomen: non-obese, non-distended. Neurologic: alert and oriented. Cognitive exam, [employer] and PNS grossly intact on informal exam. Psych: good eye contact, normal affect. Initial Vital Signs Initial Vital Signs: Vital Signs Temperature 97.4 F L 12/18/19 18:37 Pulse Rate 56 L 12/18/19 18:37 Respiratory Rate 18 12/18/19 18:37 Blood Pressure 126/65 12/18/19 18:37 Pulse Oximetry 99 12/18/19 18:37 <Thomas Galeas DO - Last Filed: 12/19/19 03:32> Initial Vital Signs Initial Vital Signs: Vital Signs Temperature 97.4 F L 12/18/19 18:37 Pulse Rate 56 L 12/18/19 18:37 Respiratory Rate 18 12/18/19 18:37 Blood Pressure 126/65 12/18/19 18:37 Pulse Oximetry 99 12/18/19 18:37 Scores <DUNG AguilarP - Last Filed: 12/18/19 19:57> [facility] [place] coma scale eye opening: Spontaneous Ryan coma scale verbal response: Orientated Ryan coma scale motor response: Obey commands [place] coma scale total score: 15 Course <Chito HsuDUNGP - Last Filed: 12/18/19 19:57> Vital Signs Vital signs: Vital Signs - 8 hr 12/18/19 19:53 Pulse Rate 53 L Respiratory Rate 16 Blood Pressure [Right Arm] 120/67 Pulse Oximetry 98 <Thomas Galeas DO - Last Filed: 12/19/19 03:32> Vital Signs Vital signs: Vital Signs - 8 hr 12/18/19 19:53 Pulse Rate 53 L Respiratory Rate 16 Blood Pressure [Right Arm] 120/67 Pulse Oximetry 98 [facility] - Skin/Abscess/Foreign Bdy <Chito Hsu [facility] - Last Filed: 12/18/19 19:57> Differential Diagnosis Differential diagnosis: Likely other (Foreign body sensation, foreign body in esophagus, esophageal stricture) Medical Records Attestation: I reviewed the patient's medical records. [facility] Narrative Medical decision making narrative: This is a 79-year-old male who presents to ED with foreign body sensation in epigastric region. He had dry/tough turkey meat for dinner tonight and had vomited shortly after felt food lodged in esophagus. Patient was able to tolerate fluids after this and denies dyspnea. Patient was provided with warm soda in ED which she was able to tolerate a small can w/o vomiting. Patient denies any pain at this time. Patient reports has history of esophageal stricture and spasm and no previous EGD procedure was needed to remove foreign body in the past. Patient discharged to home with Reglan as needed if symptoms persists tomorrow and advised to follow up with PCP for referral to swallowing test and possible EGD with return precautions. Discussed Reglan medication precautions and patient verbalized understanding and in agreement with the treatment plan. Discharge Plan Departure Patient Disposition: Home Clinical Impression: Sensation of foreign body in esophagus Discharge Date/Time: 12/18/19 20:03 Instructions: DI for Esophageal Stricture Activity Restrictions/Additional Instructions: You have been diagnosed with [foreign body sensation in epigastric region. You were able to tolerate fluids without difficulty. There was no dyspnea or difficulty managing aura secretion while in ED. Please cut up food into small pieces and treat very well before swallowing.] What to do: *Take your medications as directed. If your symptoms persist, please try Metoclopramide (Reglan) for prokinetic purpose. This medication may cause drowsiness so please take precautions. This medication can help with nausea as well and it has been transmitted to [facility] in [place]. *Follow up with your primary care provider in 2-3 days, call for an appointment. You may need swallowing test and a referral to GI specialist if your symptoms persists. Let them know you were seen in the ED and that we asked you to be seen in follow up. *Return to ED if you have any new, worsening, or concerning symptoms, such as [chest pain, breathing difficulty, unable to tolerate fluids, vomiting, difficulty with swallowing, difficulty managing or secretion, fever or any acute concerns]. Prescriptions: New metoclopramide HCl 5 mg/5 mL solution 5 - 10 mg PO QAC PRN (Reason: nausea and vomiting; prokinetic) Qty: 200 RF: 0 No Action atorvastatin 40 mg tablet 40 mg PO DAILY RF: 0 (DME) Disabled Parking Pass Qty: 1 RF: 0 aspirin 81 MG tablet,chewable 81 mg PO QDAY Qty: 0 RF: 0 docusate sodium 250 MG capsule 250 mg PO Q DAY Qty: 0 RF: 0 metoprolol tartrate [Lopressor] 50 MG tablet 25 mg PO BID Qty: 0 RF: 0 lisinopril 5 MG tablet 5 mg PO QDAY Qty: 0 RF: 0 CMP KCCDGT 12/1/2/3/6/2% See Rx Instructions .ROUTE .COMPLEX Qty: 200 RF: 0 tizanidine 2 mg tablet See Rx Instructions .ROUTE .COMPLEX Qty: 270 RF: 0 albuterol sulfate 90 mcg/actuation HFA aerosol inhaler 2 puff INHALATION Q6H PRN (Reason: shortness of breath) Qty: 25.5 RF: 1 hydrocodone-acetaminophen 5-325 mg tablet 1 tab PO TID Qty: 90 RF: 0 nitroglycerin [Nitrostat] 0.4 mg tablet, sublingual 0.4 mg SL Q5-15M PRNRF: 0 meclizine 25 mg tablet 25 mg PO DAILY PRN (Reason: dizziness) Qty: 30 RF: 0 ibuprofen 600 mg tablet See Rx Instructions .ROUTE .COMPLEX Qty: 90 RF: 0 gabapentin 300 mg capsule 600 mg PO TID Qty: 180 RF: 1 Referrals: Shiva Tirado DO [Physician] -
[2019-12-18 19:53] VITALS: BP 120/67; PULSE 53; RESP 16; O2SAT 98
== END 2019-12-18 20:03 | disposition home or self-care (01) ==
PROVIDERS: Emergency Provider Nurse Practitioner Family; Family Provider Family Medicine; PCP Family Medicine
DX: K22.8 Other specified diseases of esophagus (principal)
CPT/HCPCS: 99281

== ENCOUNTER → 2019-12-22 12:21 | Outpatient (CLI) | payer MEDICARE, OTHER, SELFPAY ==
--- NOTE | 2019-12-22 12:24 | DI.RAD.S_ITS ---
PROCEDURE: FL BARIUM SWALLOW INDICATIONS: Dysphagia COMPARISON: None. FINDINGS: Function: There is decreased esophageal peristalsis. Delayed esophageal clearance Spontaneous gastroesophageal reflux. Morphology: Air-contrast images demonstrate normal mucosal morphology. Single contrast views show no esophageal strictures, extrinsic mass effects, or diverticula. Limited images of the stomach demonstrate normal appearance. IMPRESSION: Esophageal dysmotility, and spontaneous gastroesophageal reflux Dictated by: Ramy Villalpando M.D. on 12/22/2019 at 13:17 Approved by: Ramy Villalpando M.D. on 12/22/2019 at 13:19
== END ==
PROVIDERS: Family Provider Family Medicine; PCP Family Medicine; Referring Provider Physician Assistant; Visit Provider Physician Assistant
DX: R13.10 Dysphagia, unspecified (principal); K22.4 Dyskinesia of esophagus; K21.9 Gastro-esophageal reflux disease without esophagitis
CPT/HCPCS: 74220

== ENCOUNTER → 2020-01-27 11:40 | Outpatient (CLI) | payer MEDICARE, OTHER, SELFPAY ==
[2020-01-29 05:01] LABS: COVID19 Sendout Not Detected (Not Detected)
== END ==
PROVIDERS: Family Provider Family Medicine; PCP Family Medicine; Visit Provider Registered Nurse
DX: Z20.828 Contact with and (suspected) exposure to other viral communicable diseases (principal)
CPT/HCPCS: 87635

== ENCOUNTER → 2020-06-01 11:28 | Outpatient (CLI) | payer MEDICARE, OTHER, SELFPAY ==
--- NOTE | 2020-06-01 11:30 | DI.RAD.S_ITS ---
PROCEDURE: XR CHEST 2V INDICATIONS: Shortness of breath TECHNIQUE: 2 views of the chest were acquired. COMPARISON: [facility], , XR CHEST 2V, 05/10/2019, 11:41. FINDINGS: Surgical changes and devices: Sternotomy wires and CABG clips.. Chronic interstitial disease appears unchanged. No new consolidation. No pleural effusions or pneumothorax. Mediastinum: Mediastinal contours are normal. Heart size is normal. Bones and chest wall: No suspicious bony abnormalities. Soft tissues appear unremarkable. IMPRESSION: No acute disease or new consolidation Chronic diffuse interstitial disease and scarring. Dictated by: Ramy Villalpando M.D. on 06/01/2020 at 13:41 Approved by: Ramy Villalpando M.D. on 06/01/2020 at 13:43
== END ==
PROVIDERS: Family Provider Family Medicine; PCP Family Medicine; Referring Provider Family Medicine; Visit Provider Family Medicine
DX: J98.4 Other disorders of lung (principal); R06.02 Shortness of breath
CPT/HCPCS: 71046

== ENCOUNTER → 2020-06-08 15:02 | Outpatient (CLI) | payer MEDICARE, OTHER, SELFPAY | PROVIDERS: Family Provider Family Medicine; PCP Family Medicine; Visit Provider Family Medicine | DX: R35.0 Frequency of micturition (principal); R61 Generalized hyperhidrosis; N39.0 Urinary tract infection, site not specified | CPT/HCPCS: 87086 ==

== ENCOUNTER 2020-06-10 08:23 | Emergency (ER) | payer MEDICARE, OTHER, SELFPAY ==
[2020-06-10 08:25] VITALS: BP 192/100; PULSE 65; RESP 16; TEMP 36.6; O2SAT 97; BMI 26.7
--- NOTE | 2020-06-10 08:51 | DI.RAD.S_ITS ---
PROCEDURE: XR CHEST 1V INDICATIONS: cough TECHNIQUE: One view of the chest was acquired. COMPARISON: [facility], CR, XR CHEST 2V, 06/01/2020, 11:40. FINDINGS: Surgical changes and devices: Patient is status post median sternotomy. Lungs and pleura: No acute airspace opacities. Underlying pulmonary scar or fibrosis is present at the right lung base. No pleural effusions or pneumothorax. Mediastinum: Mediastinal contours appear normal. Heart size is normal. Bones and chest wall: No suspicious bony lesions. Overlying soft tissues appear unremarkable. IMPRESSION: No acute cardiopulmonary findings. Dictated by: Jessica Uribe M.D. on 06/10/2020 at 8:31 Approved by: Jessica Uribe M.D. on 06/10/2020 at 8:31
--- NOTE | 2020-06-10 08:56 | ED.GENADULT ---
HPI - General Adult General Chief complaint: Hypertension Stated complaint: Cold sweats/High blood Pressure Time Seen by Provider: 06/10/20 08:36 Source: patient Mode of arrival: Ambulatory Limitations: no limitations History of Present Illness HPI narrative: Patient is an 79-year-old male history of coronary artery disease is presenting with fevers sweats chills and frequent urination. He was actually here 2 days ago and had a negative urine culture he was here for something stuck in his throat. He says that for the last 3 days he has been very chilled and sweaty. He has a cough but he says he always has a cough in fact he is being evaluated by pulmonology. He does not feel like it is any worse he denies any chest pain or shortness of breath. He has no abdominal pain flank pain nausea or vomiting. Onset (ago): day(s) Related Data Home Medications Medication Instructions Recorded Confirmed aspirin 81 mg PO QDAY #0 08/28/12 06/01/20 docusate sodium 250 mg PO Q DAY #0 08/28/12 06/01/20 lisinopril 5 mg PO QDAY #0 03/25/17 06/01/20 metoprolol tartrate [Lopressor] 25 mg PO BID #0 03/25/17 06/01/20 atorvastatin 40 mg tablet 40 mg PO DAILY 07/29/18 06/01/20 nitroglycerin 0.4 mg sublingual 0.4 mg SL Q5-15M PRN 03/16/19 06/01/20 tablet Previous Rx's Medication Instructions Recorded Disabled Parking Pass #1 ea 09/29/18 CMP KCCDGT 09/18//3/6/2% See Rx Instructions .ROUTE 08/10/19 .COMPLEX #200 each NS tizanidine 2 mg tablet See Rx Instructions .ROUTE 11/16/19 .COMPLEX #270 tablet metoclopramide HCl 5 mg tablet 5 mg PO QAC PRN #90 tab 01/12/20 furosemide 20 mg tablet 20 mg PO DAILY #30 tab 01/27/20 carisoprodol 350 mg tablet 350 mg PO TID PRN #270 tab 04/20/20 meclizine 25 mg tablet 25 mg PO DAILY PRN #30 tab 05/08/20 hydrocodone 5 mg-acetaminophen 325 1 tab PO TID #90 tab 05/31/20 mg tablet gabapentin 300 mg capsule 600 mg PO TID #180 cap 06/01/20 ibuprofen 600 mg tablet See Rx Instructions .ROUTE 06/04/20 .COMPLEX #270 tab fluticasone 250 mcg-salmeterol 50 1 inhalation INHALATION BID #60 06/05/20 mcg/dose blistr powdr for each inhalation Allergies Allergy/AdvReac Type Severity Reaction Status Date / Time propoxyphene [From Darvon] Allergy Verified 06/01/20 11:12 nitrofurantoin AdvReac Intermediate Verified 06/01/20 11:12 Review of Systems Review of Systems ROS Unobtainable: All systems reviewed & are unremarkable except as noted in HPI and below Constitutional Constitutional: Reports body ache(s), Reports chills, Reports fever(s), Denies headache(s) and Denies weakness Eyes Eyes: Denies change in vision, Denies eye discharge, Denies irritation and Denies loss of vision ENT Ears, Nose, Mouth, and Throat: Denies headache(s) Cardiovascular Cardiovascular: Denies chest pain, Denies leg edema, Denies dyspnea and Denies dyspnea on exertion Respiratory Respiratory: Reports cough, Denies dyspnea and Denies dyspnea on exertion Gastrointestinal Gastrointestinal: Denies abdominal pain, Denies change in bowel habits, Denies diarrhea, Denies nausea and Denies vomiting Genitourinary Genitourinary: Reports as per HPI and Reports urinary urgency Genitourinary: Reports as per HPI and Reports urinary urgency Musculoskeletal Musculoskeletal: Denies back pain and Denies myalgias Integumentary/Breasts Skin/Breast: Denies pruritus, Denies erythema, Denies rash and Denies wounds Neurologic Neurologic: Denies headache(s), Denies loss of vision and Denies weakness Patient History Medical History Atrial fibrillation (Resolved ~1993) Bilateral lower extremity edema (Acute) Bladder cancer (Resolved) BPH (benign prostatic hyperplasia) (Chronic) Cervical somatic dysfunction (Acute) Cervical spine disease (Chronic) Chronic neck pain (Chronic) Coordination of complex care (Acute) Coronary artery disease (Chronic) GERD (gastroesophageal reflux disease) (Chronic) Hypertension (Chronic) Increased frequency of urination (Acute) Increasing shortness of breath (Acute) Myocardial infarction (Resolved 1978) Night sweats (Acute) Pelvic somatic dysfunction (Acute) Restrictive lung disease (Acute) Right leg pain (Acute) Segmental and somatic dysfunction of abdomen and other regions (Acute) Segmental and somatic dysfunction of lower extremity (Acute) Segmental and somatic dysfunction of lumbar region (Acute) Segmental and somatic dysfunction of sacral region (Acute) Segmental and somatic dysfunction of thoracic region (Acute) Shortness of breath (Acute) Thoracic aortic aneurysm (Acute) Surgical History History of abdominal aortic aneurysm repair (Resolved ~2006) Hx of cervical discectomy (Resolved) Hx of coronary artery bypass graft (Resolved ~1980) Hx of laminectomy (Resolved ~04/2016) Hx of transurethral resection of prostate (Resolved) S/P carotid endarterectomy (Resolved ~1990) Family History Father No problems noted. Mother No problems noted. Social History Smoking Status: Former smoker Tobacco: How many years used: 19 second hand exposure: No alcohol intake: never substance use type: does not use Smoking Status: Former smoker alcohol intake frequency: holidays/special occasions only Substance Use Type: does not use Exam Initial Vital Signs Initial Vital Signs: Vital Signs Temperature 97.9 F 06/10/20 08:25 Pulse Rate 65 06/10/20 08:25 Respiratory Rate 16 06/10/20 08:25 Blood Pressure 192/100 H 06/10/20 08:25 Pulse Oximetry 97 06/10/20 08:25 GENERAL: Pleasant alert well-appearing male and in [no acute] distress. Slightly clammy HEENT: Head atraumatic,EOMI, pupils reactive, face symmetric, [moist] mucous membranes CARDIOVASCULAR: Regular rate and rhythm without murmurs, rubs or gallops. Sternal scar noted RESPIRATORY: Breath sounds equal bilaterally, no wheezes rales or rhonchi. ABDOMEN: Soft, nontender. Normoactive bowel sounds all 4 quadrants. No guarding or rebound. : No CVA tenderness EXTREMITIES: Normal range of motion, no clubbing or edema. Neurovascularly intact NEUROLOGICAL: Alert and oriented x4.Normal gait and speech. Cranial nerves II through XII grossly intact. SKIN: Warm, dry, no laceration, no petechiae, no rashes or lesions. Course Orders Ordered: ED Orders 06/10/20 08:31 EKG-12 Lead Routine 06/10/20 08:41 Blood Culture Stat C-Reactive Protein Quant Stat Complete Blood Count AUTO DIFF Stat Comprehensive Metabolic Panel Stat D Dimer Stat Ferritin Stat Lactate (Lactic Acid) Stat Lactate Dehydrogenase Stat NT-proBNP (BNP-Adult 18+) Stat Procalcitonin Stat Troponin & CK Cardiac Panel Stat 06/10/20 08:51 XR chest 1V Stat 06/10/20 10:00 Urinalysis and Microscopic Stat Vital Signs Vital signs: Vital Signs - 8 hr 06/10/20 08:25 06/10/20 10:08 06/10/20 11:01 Temperature 97.9 F 98.0 F 98.4 F Pulse Rate 65 72 Respiratory Rate 16 18 Blood Pressure 192/100 H 144/77 H Pulse Oximetry 97 98 Medical Decision Making Lab Data Lab results reviewed: Yes I reviewed the patient's lab results. Result diagrams: 06/10/20 08:41 06/10/20 08:41 Labs: Lab Results 06/10/20 06/10/20 06/10/20 Range/Units 08:41 08:41 08:41 WBC 6.4 (4.5-11.0) X10^3/uL RBC 3.67 L (4.5-5.9) X10^6/uL Hgb 12.2 L (13.5-17.5) g/dL Hct 37.1 L (41-53) % MCV 101.2 H (80-100) fL MCH 33.4 (26-34) PG MCHC 33.0 (30-36) % RDW 13.9 (11.6-14.8) % Plt Count 226 (150-400) X10^3/uL Neut % (Auto) 66.0 (50-75) % Lymph % (Auto) 14.8 L (25-40) % [place] % (Auto) 7.7 (3-14) % Eos % (Auto) 10.4 H (2-4) % Baso % (Auto) 1.1 (0-2) % Neut # (Auto) 4200 (2003-6755) /uL Lymph # (Auto) 1000 L (0754-0976) /uL [place] # (Auto) 500 (0-900) /uL Eos # (Auto) 700 H (0-450) /uL Baso # (Auto) 100 (0-100) /uL D-Dimer 617 H (<230) ng/mL Sodium 136 L (137-145) mmol/L Potassium 4.7 (3.4-5.1) mmol/L Chloride 105 (98-107) mmol/L Carbon Dioxide 26 (22-32) mmol/L BUN 20 (9-20) mg/dL Creatinine 0.99 (0.66-1.25) mg/dL Estimated GFR > 60.0 (>60) mL/min BUN/Creatinine Ratio 20.2 (6-22) Glucose 110 (80-110) mg/dL Lactate (0.7-2.1) mmol/L Calcium 9.4 (8.4-10.2) mg/dL Ferritin 108 (18-464) ng/mL Total Bilirubin 1.1 (0.2-1.3) mg/dL AST 24 (17-59) IU/L ALT 23 (<50) IU/L Alkaline Phosphatase 109 (38-126) U/L Lactate Dehydrogenase 539 (313-618) U/L Total Creatine Kinase 53 L (55-170) U/L CK-MB (CK-2) TNP CK-MB (CK-2) Rel Index TNP Troponin I < 0.012 (0.01-0.034) ng/mL C-Reactive Protein < 0.5 (<1.0) mg/dL NT-Pro-B Natriuret Pep 433 (<450) pg/mL Total Protein 7.9 (6.3-8.2) g/dL Albumin 4.4 (3.5-5.0) g/dL Globulin 3.5 (1.7-4.1) g/dL Albumin/Globulin Ratio 1.3 (1.0-2.8) Procalcitonin (<0.5) ng/mL Urine Color Urine Appearance Urine pH (4.5-8.0) Ur Specific [place] (1.000-1.035) Urine Protein (Negative) Urine Glucose (UA) (Negative) g/dL Urine Ketones (NEGATIVE) Urine Occult Blood (Negative) Urine Nitrate (Negative) Urine Bilirubin (NEGATIVE) Urine Urobilinogen (0.2) E.U./dL Ur Leukocyte Esterase (NEGATIVE) Urine RBC (0-5/HPF) Urine WBC (0-5/HPF) Urine Bacteria (None) Ur Culture Indicated? Micro UA Comment 06/10/20 06/10/20 06/10/20 Range/Units 08:41 08:41 10:00 WBC (4.5-11.0) X10^3/uL RBC (4.5-5.9) X10^6/uL Hgb (13.5-17.5) g/dL Hct (41-53) % MCV (80-100) fL MCH (26-34) PG MCHC (30-36) % RDW (11.6-14.8) % Plt Count (150-400) X10^3/uL Neut % (Auto) (50-75) % Lymph % (Auto) (25-40) % [place] % (Auto) (3-14) % Eos % (Auto) (2-4) % Baso % (Auto) (0-2) % Neut # (Auto) (5775-9559) /uL Lymph # (Auto) (6494-7808) /uL [place] # (Auto) (0-900) /uL Eos # (Auto) (0-450) /uL Baso # (Auto) (0-100) /uL D-Dimer (<230) ng/mL Sodium (137-145) mmol/L Potassium (3.4-5.1) mmol/L Chloride (98-107) mmol/L Carbon Dioxide (22-32) mmol/L BUN (9-20) mg/dL Creatinine (0.66-1.25) mg/dL Estimated GFR (>60) mL/min BUN/Creatinine Ratio (6-22) Glucose (80-110) mg/dL Lactate 0.8 (0.7-2.1) mmol/L Calcium (8.4-10.2) mg/dL Ferritin (18-464) ng/mL Total Bilirubin (0.2-1.3) mg/dL AST (17-59) IU/L ALT (<50) IU/L Alkaline Phosphatase (38-126) U/L Lactate Dehydrogenase (313-618) U/L Total Creatine Kinase (55-170) U/L CK-MB (CK-2) CK-MB (CK-2) Rel Index Troponin I (0.01-0.034) ng/mL C-Reactive Protein (<1.0) mg/dL NT-Pro-B Natriuret Pep (<450) pg/mL Total Protein (6.3-8.2) g/dL Albumin (3.5-5.0) g/dL Globulin (1.7-4.1) g/dL Albumin/Globulin Ratio (1.0-2.8) Procalcitonin < 0.05 (<0.5) ng/mL Urine Color Yellow Urine Appearance Clear Urine pH 6.5 (4.5-8.0) Ur Specific [place] 1.015 (1.000-1.035) Urine Protein Negative (Negative) Urine Glucose (UA) Negative (Negative) g/dL Urine Ketones Negative (NEGATIVE) Urine Occult Blood Negative (Negative) Urine Nitrate Negative (Negative) Urine Bilirubin Negative (NEGATIVE) Urine Urobilinogen 0.2 (0.2) E.U./dL Ur Leukocyte Esterase Negative (NEGATIVE) Urine RBC None seen (0-5/HPF) Urine WBC None seen (0-5/HPF) Urine Bacteria None seen (None) Ur Culture Indicated? Cult not indicated Micro UA Comment Microscopic normal Imaging Data Chest x-ray: Radiologist's Impression: PROCEDURE: XR CHEST 1V INDICATIONS: cough TECHNIQUE: One view of the chest was acquired. COMPARISON: [facility], , XR CHEST 2V, 06/01/2020, 11:40. FINDINGS: Surgical changes and devices: Patient is status post median sternotomy. Lungs and pleura: No acute airspace opacities. Underlying pulmonary scar or fibrosis is present at the right lung base. No pleural effusions or pneumothorax. Mediastinum: Mediastinal contours appear normal. Heart size is normal. Bones and chest wall: No suspicious bony lesions. Overlying soft tissues appear unremarkable. IMPRESSION: No acute cardiopulmonary findings. Dictated by: Jessica Uribe M.D. on 06/10/2020 at 8:31 Approved by: Jessica Uribe M.D. on 06/10/2020 at 8:31 ECG Data Attestation: I personally reviewed and interpreted this ECG as follows: Prior ECG tracings: available for review Interpretation: Normal sinus rhythm rate 50 p.r. interval 177 QRS [address] changes similar to previous EKG MDM Narrative Medical decision making narrative: Patient had a urine culture from 2 days ago which did not grow anything. She does not appear septic is afebrile without leukocytosis negative lactate procalcitonin and all other inflammatory markers. He was unable to tolerate a COVID-19 test however we were able to get 1 after many attempts. He overall appears well. At this time recommend she go home self quarantine and wait for his covered test. Discharge Plan Departure Patient Disposition: Home Clinical Impression: Acute viral syndrome Discharge Date/Time: 06/10/20 11:03 Instructions: DI for Viral Syndrome Activity Restrictions/Additional Instructions: *You have been diagnosed with viral syndrome *What to do: At this time her COVID-19 test is pending please self quarantine and follow the instructions below. No need for antibiotics at this time. *Continue to take medications as directed *Follow up with your primary care provider in 2-3 days *Return to ER if you should have increased weakness fatigue, chest pain, shortness of breath, or any new, worsening or concerning symptoms CDC Guidelines for home isolation: - Stay away from others - Limit contact with pets and animals: If you must care for a pet, wash your hands before and after interacting with them - Wear a mask if you are sick - Cover your mouth and nose with a tissue when you cough or sneeze. Dispose of tissues in a lined trash can and wash your hands immediately with soap and water for at least 20 seconds. If soap and water are not available, clean hands with alcohol-based hand radio electronics officer that contains at least 60% alcohol. - Clean your hands often with soap and water for at least 20 seconds - Avoid touching your eyes, nose and mouth with unwashed hands - Do not share dishes, drinking glasses, cups, eating utensils, towels, or bedding with other people in your home. After using these items, wash them thoroughly with soap and water or put in the railways assistant. - Clean high-touch surfaces in your isolation area (?sick room? and bathroom) every day; let a caregiver clean and disinfect high-touch surfaces in other areas of the home. Clean the area or item with soap and water or another detergent if it is dirty. Then, use a household disinfectant. Seek medical attention, but call first: - Seek medical care right away if your illness is worsening (for example, if you have difficulty breathing). - Call your doctor before going in: Before going to the doctor?s office or emergency room, call ahead and tell them your symptoms. They will tell you what to do. - If possible, put on a facemask before you enter the building. If you can?t put on a facemask, try to keep a safe distance from other people (at least 6 feet away). This will help protect the people in the office or waiting room. - Follow care instructions from your healthcare provider and local health department: Your local health authorities will give instructions on checking your symptoms and reporting information. Emergency warning signs for COVID-19: - Difficulty breathing or shortness of breath - Persistent pain or pressure in the chest - New confusion or inability to arouse - Bluish lips or face Prescriptions: No Action atorvastatin 40 mg tablet 40 mg PO DAILY RF: 0 (DME) Disabled Parking Pass Qty: 1 RF: 0 aspirin 81 MG tablet,chewable 81 mg PO QDAY Qty: 0 RF: 0 docusate sodium 250 MG capsule 250 mg PO Q DAY Qty: 0 RF: 0 metoprolol tartrate [Lopressor] 50 MG tablet 25 mg PO BID Qty: 0 RF: 0 lisinopril 5 MG tablet 5 mg PO QDAY Qty: 0 RF: 0 CMP KCCDGT 12/1/2/3/6/2% See Rx Instructions .ROUTE .COMPLEX Qty: 200 RF: 0 tizanidine 2 mg tablet See Rx Instructions .ROUTE .COMPLEX Qty: 270 RF: 0 carisoprodol 350 mg tablet 350 mg PO TID PRN (Reason: muscle pain) Qty: 270 RF: 0 meclizine 25 mg tablet 25 mg PO DAILY PRN (Reason: dizziness) Qty: 30 RF: 0 gabapentin 300 mg capsule 600 mg PO TID Qty: 180 RF: 0 ibuprofen 600 mg tablet See Rx Instructions .ROUTE .COMPLEX Qty: 270 RF: 2 fluticasone propion-salmeterol [Advair Diskus] 250-50 mcg/dose blister with device 1 inhalation INHALATION BID Qty: 60 RF: 11 nitroglycerin [Nitrostat] 0.4 mg tablet, sublingual 0.4 mg SL Q5-15M PRNRF: 0 furosemide 20 mg tablet 20 mg PO DAILY Qty: 30 RF: 1 metoclopramide HCl 5 mg tablet 5 mg PO QAC PRN (Reason: nausea and vomiting) Qty: 90 RF: 0 hydrocodone-acetaminophen 5-325 mg tablet 1 tab PO TID Qty: 90 RF: 0 Referrals: Shiva Tirado DO [Primary Care Provider] -
[2020-06-10 09:00] LABS: Add Manual Diff / Slide Review NO; Basophils Absolute Auto 100 /uL (0-100); Basophils Percent Auto 1.1 % (0-2); Eosinophils Absolute Auto 700 /uL (0-450); Eosinophils Percent Auto 10.4 % (2-4); Hematocrit 37.1 % (41-53); Hemoglobin 12.2 g/dL (13.5-17.5); Lymphocytes Absolute Auto 1000 /uL (1100-4500); Lymphocytes Percent Auto 14.8 % (25-40); Mean Corpuscular Hemoglobin 33.4 PG (26-34); Mean Corpuscular Volume 101.2 fL (80-100); Monocytes Absolute Auto 500 /uL (0-900); Monocytes Percent Auto 7.7 % (3-14); Neutrophils Absolute Auto 4200 /uL (1500-7000); Platelet Count 226 X10^3/uL (150-400); Red Blood Cell Count 3.67 X10^6/uL (4.5-5.9); Red Cell Distribution Width 13.9 % (11.6-14.8); White Blood Cell Count 6.4 X10^3/uL (4.5-11.0)
[2020-06-10 09:08] LABS: D Dimer 617 ng/mL (<230)
[2020-06-10 09:12] LABS: Lactate (Lactic Acid) 0.8 mmol/L (0.7-2.1)
[2020-06-10 09:14] LABS: Alanine Aminotransferase 23 IU/L (<50); Albumin 4.4 g/dL (3.5-5.0); Albumin Globulin Ratio 1.3 (1.0-2.8); Alkaline Phosphatase 109 U/L (38-126); Aspartate Aminotransferase 24 IU/L (17-59); BUN Creatinine Ratio 20.2 (6-22); Bilirubin Total 1.1 mg/dL (0.2-1.3); Blood Urea Nitrogen 20 mg/dL (9-20); C-Reactive Protein Quant < 0.5 mg/dL (<1.0); Calcium 9.4 mg/dL (8.4-10.2); Carbon Dioxide 26 mmol/L (22-32); Chloride 105 mmol/L (98-107); Creatine Kinase 53 U/L (55-170); Estimated Glomerular Filt Rate > 60.0 mL/min (>60); Globulin 3.5 g/dL (1.7-4.1); Glucose 110 mg/dL (80-110); HEMOLYSIS < 15 (0-50); Lactate Dehydrogenase 539 U/L (313-618); Potassium 4.7 mmol/L (3.4-5.1); Sodium 136 mmol/L (137-145); Total Protein 7.9 g/dL (6.3-8.2)
[2020-06-10 09:23] LABS: NT-proBNP (BNP-Adult 18+) 433 pg/mL (<450); Troponin I < 0.012 ng/mL (0.01-0.034)
[2020-06-10 09:25] LABS: Procalcitonin < 0.05 ng/mL (<0.5)
[2020-06-10 09:46] LABS: Ferritin 108 ng/mL (18-464)
[2020-06-10 10:08] VITALS: TEMP 36.7
[2020-06-10 10:29] LABS: Bacteria Urine None Seen; RBC Urine None Seen (0-5/HPF); WBC Urine None Seen (0-5/HPF)
[2020-06-10 10:36] LABS: Appearance Urine UA CLEAR; Bilirubin Urine UA NEGATIVE (NEGATIVE); Color Urine UA YELLOW; Glucose Urine UA NEGATIVE (Negative); Ketones Urine UA NEGATIVE (NEGATIVE); Leukocyte Esterase Urine UA NEGATIVE (NEGATIVE); Nitrite Urine UA NEGATIVE (Negative); Occult Blood Urine UA NEGATIVE (Negative); Protein Urine UA NEGATIVE (Negative); Specific Gravity Urine UA 1.015 (1.000-1.035); Urobilinogen Urine UA 0.2 E.U./dL (0.2); pH Urine UA 6.5 (4.5-8.0)
[2020-06-10 10:43] LABS: Culture Indicated Urine Cult Not Indicated; Urine Comments Microscopic Normal
[2020-06-10 11:01] VITALS: BP 144/77; PULSE 72; RESP 18; TEMP 36.9; O2SAT 98
[2020-06-12 08:09] LABS: COVID19 Sendout Not Detected (Not Detected)
== END 2020-06-10 11:03 | disposition home or self-care (01) ==
PROVIDERS: Emergency Provider Emergency Medicine; Family Provider Family Medicine; PCP Family Medicine
DX: B34.9 Viral infection, unspecified (principal); R05 Cough; I10 Essential (primary) hypertension; R50.9 Fever, unspecified
CPT/HCPCS: 36415; 71045; 80053; 81001; 82550; 82728; 83605; 83615; 83880; 84145; 84484; 85025; 85379; 86140; 87040; 87635; 93005; 93010; 99283; 99284

== ENCOUNTER → 2020-06-15 11:26 | Outpatient (CLI) | payer MEDICARE, OTHER, SELFPAY ==
[2020-06-15 13:52] LABS: Add Manual Diff / Slide Review NO; Alanine Aminotransferase 16 IU/L (<50); Albumin 4.2 g/dL (3.5-5.0); Albumin Globulin Ratio 1.5 (1.0-2.8); Alkaline Phosphatase 90 U/L (38-126); Aspartate Aminotransferase 21 IU/L (17-59); BUN Creatinine Ratio 18.6 (6-22); Basophils Absolute Auto 100 /uL (0-100); Blood Urea Nitrogen 24 mg/dL (9-20); Calcium 9.6 mg/dL (8.4-10.2); Carbon Dioxide 24 mmol/L (22-32); Chloride 106 mmol/L (98-107); Eosinophils Absolute Auto 300 /uL (0-450); Eosinophils Percent Auto 3.8 % (2-4); Estimated Glomerular Filt Rate 53.5 mL/min (>60); Globulin 2.8 g/dL (1.7-4.1); Glucose 124 mg/dL (80-110); HEMOLYSIS < 15 (0-50); Hematocrit 35.2 % (41-53); Hemoglobin 11.9 g/dL (13.5-17.5); Lactate Dehydrogenase 506 U/L (313-618); Lymphocytes Absolute Auto 1600 /uL (1100-4500); Lymphocytes Percent Auto 18.5 % (25-40); Mean Corpuscular HGB Conc 33.8 % (30-36); Mean Corpuscular Hemoglobin 34.3 PG (26-34); Mean Corpuscular Volume 101.5 fL (80-100); Monocytes Absolute Auto 600 /uL (0-900); Monocytes Percent Auto 6.5 % (3-14); Neutrophils Absolute Auto 6100 /uL (1500-7000); Neutrophils Percent Auto 70.2 % (50-75); Platelet Count 192 X10^3/uL (150-400); Potassium 4.9 mmol/L (3.4-5.1); Red Blood Cell Count 3.47 X10^6/uL (4.5-5.9); Red Cell Distribution Width 13.8 % (11.6-14.8); Sodium 138 mmol/L (137-145); White Blood Cell Count 8.7 X10^3/uL (4.5-11.0)
[2020-06-15 14:08] LABS: Free T3, Triiodothyronine Free 3.28 pg/mL (2.77-5.27); Free T4, Direct Thyroxine 1.31 ng/dL (0.78-2.19)
[2020-06-15 14:22] LABS: Thyroid Stimulating Hormone 0.532 uIU/mL (0.47-4.68)
[2020-06-15 14:58] LABS: Vitamin B12 315 pg/mL (239-931)
[2020-06-16 03:53] LABS: Haptoglobin 126 mg/dL (38-329)
[2020-07-19 13:57] LABS: Zinc 575
== END ==
PROVIDERS: Family Provider Family Medicine; PCP Family Medicine; Referring Provider Family Medicine; Visit Provider Family Medicine
DX: D75.89 Other specified diseases of blood and blood-forming organs (principal); R61 Generalized hyperhidrosis
CPT/HCPCS: 36415; 80053; 82525; 82607; 82746; 83010; 83615; 84439; 84443; 84481; 84630; 85025

== ENCOUNTER → 2020-06-18 11:36 | Outpatient (CLI) | payer MEDICARE, OTHER, SELFPAY ==
[2020-06-18 11:42] LABS: RBC Urine None Seen (0-5/HPF)
[2020-06-18 12:00] LABS: Appearance Urine UA CLEAR; Bilirubin Urine UA NEGATIVE (NEGATIVE); Color Urine UA YELLOW; Glucose Urine UA NEGATIVE (Negative); Ketones Urine UA NEGATIVE (NEGATIVE); Leukocyte Esterase Urine UA NEGATIVE (NEGATIVE); Nitrite Urine UA NEGATIVE (Negative); Occult Blood Urine UA NEGATIVE (Negative); Protein Urine UA NEGATIVE (Negative); Urobilinogen Urine UA 0.2 E.U./dL (0.2)
[2020-06-18 12:06] LABS: Bacteria Urine Occasional (0-1); Culture Indicated Urine Cult Not Indicated; Squamous Epithelial Cell Urine 0-1 /HPF (0-5/HPF); WBC Urine 0-1/HPF (0-5/HPF)
== END ==
PROVIDERS: Family Provider Family Medicine; PCP Family Medicine; Referring Provider Family Medicine; Visit Provider Family Medicine
DX: R11.0 Nausea (principal); R35.0 Frequency of micturition; R53.81 Other malaise; R53.83 Other fatigue
CPT/HCPCS: 81001

== ENCOUNTER → 2021-02-05 14:09 | Outpatient (CLI) | payer MEDICARE, OTHER, SELFPAY ==
[2021-02-05 15:35] LABS: Alanine Aminotransferase 16 IU/L (<50); Albumin 3.9 g/dL (3.5-5.0); Albumin Globulin Ratio 1.4 (1.0-2.8); Alkaline Phosphatase 86 U/L (38-126); Aspartate Aminotransferase 23 IU/L (17-59); BUN Creatinine Ratio 18.6 (6-22); Bilirubin Total 0.5 mg/dL (0.2-1.3); Blood Urea Nitrogen 24 mg/dL (9-20); Calcium 9.3 mg/dL (8.4-10.2); Carbon Dioxide 23 mmol/L (22-32); Chloride 109 mmol/L (98-107); Estimated Glomerular Filt Rate 53.3 mL/min (>60); Globulin 2.7 g/dL (1.7-4.1); Glucose 89 mg/dL (80-110); HEMOLYSIS < 15 (0-50); Potassium 4.7 mmol/L (3.4-5.1); Sodium 140 mmol/L (137-145); Total Protein 6.6 g/dL (6.3-8.2)
[2021-02-05 15:51] LABS: Free T3, Triiodothyronine Free 2.93 pg/mL (2.77-5.27); Free T4, Direct Thyroxine 0.86 ng/dL (0.78-2.19)
[2021-02-05 16:05] LABS: Thyroid Stimulating Hormone 0.684 uIU/mL (0.47-4.68)
== END ==
PROVIDERS: PCP Family Medicine; Referring Provider Family Medicine; Visit Provider Family Medicine
DX: R25.1 Tremor, unspecified (principal)
CPT/HCPCS: 36415; 80053; 84439; 84443; 84481

== ENCOUNTER → 2021-02-12 16:20 | Outpatient (CLI) | payer MEDICARE, OTHER, SELFPAY ==
[2021-02-12 18:01] LABS: Appearance Urine UA CLOUDY; Bilirubin Urine UA NEGATIVE (NEGATIVE); Color Urine UA YELLOW; Glucose Urine UA NEGATIVE (Negative); Ketones Urine UA NEGATIVE (NEGATIVE); Leukocyte Esterase Urine UA 3+ (NEGATIVE); Nitrite Urine UA NEGATIVE (Negative); Occult Blood Urine UA 3+ (Negative); Protein Urine UA 1+ (Negative); Specific Gravity Urine UA 1.025 (1.000-1.035); Urobilinogen Urine UA 0.2 E.U./dL (0.2)
[2021-02-12 18:07] LABS: Bacteria Urine Many (>30); Culture Indicated Urine Specimen Cultured; RBC Urine >100/HPF (0-5/HPF); Squamous Epithelial Cell Urine 1-5 /HPF (0-5/HPF); WBC Urine >100/HPF (0-5/HPF)
== END ==
PROVIDERS: PCP Family Medicine; Visit Provider Family Medicine
DX: R30.0 Dysuria (principal)
CPT/HCPCS: 81001; 87077; 87086; 87185; 87186

== ENCOUNTER 2021-08-19 12:30 | Outpatient (RCR) | payer MEDICARE, OTHER, SELFPAY ==
--- NOTE | 2021-01-17 16:11 | PT.OIE ---
Current Diagnoses Other chronic pain (01/17/21) Chronic pain syndrome (01/17/21) Radiculopathy, lumbar region (01/17/21) Cervicalgia (01/17/21) Iliotibial band syndrome, right leg (01/17/21) Arthrodesis status (01/17/21) Other specified postprocedural states (01/17/21) Past Medical History (Last Updated 01/03/21 @ 16:06 by Shiva Tirado DO) Atrial fibrillation (~1993) Bilateral lower extremity edema Bladder cancer BPH (benign prostatic hyperplasia) Cervical somatic dysfunction Cervical spine disease Chronic neck pain Coordination of complex care Coronary artery disease Excessive cerumen in both ear canals GERD (gastroesophageal reflux disease) Hypertension Hypotension Iliotibial band syndrome, right leg Increased frequency of urination Increasing shortness of breath Macrocytosis Malaise and fatigue Menieres disease Muscular deconditioning Myocardial infarction (1978) Nausea Night sweats Pelvic somatic dysfunction Restrictive lung disease Rib pain on left side Segmental and somatic dysfunction of abdomen and other regions Segmental and somatic dysfunction of lower extremity Segmental and somatic dysfunction of lumbar region Segmental and somatic dysfunction of rib cage Segmental and somatic dysfunction of sacral region Segmental and somatic dysfunction of thoracic region Shortness of breath Thoracic aortic aneurysm Past Surgical History (Last Reviewed 06/10/20 @ 09:23 by Aleena Portillo DO) History of abdominal aortic aneurysm repair (~2006) Hx of cervical discectomy Hx of coronary artery bypass graft (~1980) Hx of laminectomy (~04/2016) Hx of transurethral resection of prostate S/P carotid endarterectomy (~1990) Visit Care Team Role Provider Type Shiva Tirado DO Attending Provider Physician Primary Care Provider Referring Provider Specialty: [facility] Address: [address] [place] [address] Email: Physical Therapy Initial Evaluation PT-OP-A Visit Information Start: 01/14/21 08:36 Freq: Status: Active Protocol: Document 01/17/21 14:31 RUSTY (Rec: 01/17/21 16:09 RUSTY [id number]) Out-Patient Physical Therapy Visit Information Visit Information Visit Type Initial Evaluation Visit Start Time 14:30 Visit Stop Time 14:29 Total Visit Minutes 59 Visit Number 1 Evaluation Information Evaluation Date 01/17/21 Precautions Precautions history of fusion c/s and l/s with metal. PT-OP-B Current Condition Start: 01/14/21 08:36 Freq: Status: Active Protocol: Document 01/17/21 14:31 [facility] (Rec: 01/17/21 16:09 [facility] [id number]) Current Condition History of Current Condition Onset Date 1 year Current Complaints worsening LBP and neck pain and weakness arms and legs. History of Current Condition neck and back pain progressisvely worsening with decreased activity tolerance. Unable to golf any longer. Tried to drive to [place] 2018, couldn't make it due to pain. Last year coming back from [place] things deteriorated more. but was able to make it back. Numbness and tingling occasionally in hands. States legs give out occasionally and also spasm; states leg spasm in bed hurt his back a few nights ago. Uses walker to go any distance otherwise uses cane or furniture at home . Not currently doing any exercises, can walk about 75' at a time. Stopped doing aquatic exercise due to pool closure as result of Covid-19 and hasn't restarted. Admits to feeling some depressed/ disappointed. States Dr. Tirado recomended he look at going to assisted living and he plans to check out a few facilities in [place] close to his daughter. Prior Treatments and Tests No recent MRI or x-rays chest x-ray 6 months ago negative, states heart and lungs stable. Saw Dr. Littlejohn and 1 year ago; state nothing can be done Seeing Dr. Tirado: having osteopathic treatments; seems to help a little Treatment Goals Patient/Caregiver Goals Decrease pain, improve activity tolerance and function Prior Functional Status Baseline Function- ADL's Modified Independent Baseline Function- Mobility Modified Independent Baseline Function- Gait independent with device community distances Baseline Function- Work/School retired Baseline Function- Recreation/Hobbies restoring cars, golf Current Functional Impairments (Reported) Functional Limitations- ADL's increased time, more painful Functional Limitations- Mobility/Gait 75' with FWW max Functional Limitations- Recreation/ unable Hobbies PT-OP-C Subjective Start: 01/14/21 08:36 Freq: Status: Active Protocol: Document 01/17/21 14:31 [facility] (Rec: 01/17/21 16:09 [facility] [id number]) Patient Questionnaires Oswestry Low Back Index Oswestry Score 48 Oswestry Impairment 40 to 59% Impaired (Score 40- 59) OP-PT Pain Assessment Pain Assessment Grid Paper Pain Assessment Grid Completed Yes Location bilateral lumbar spine Intensity 7 Description Aching,Burning,Chronic, Cramping,Pressure,Spasm, Tightness Pain Aggravating Factors Activity Pain Alleviating Factors Heat,Medication Home Pain Medication Use Pain Medications Used Yes Home Pain Medication Frequency 3-4x/day Pain Behaviors Pain Behaviors Facial Grimacing,Guarding, Wincing PT-OP-G Mobility & Gait Start: 01/14/21 08:36 Freq: Status: Active Protocol: Document 01/17/21 14:31 [facility] (Rec: 01/17/21 16:09 [facility] [id number]) OP Gait Assessment Gait Gait Assistance Required: Independent Distance (Feet) 75 Gait Deviations General Gait Pattern Decreased Stride Length, Decreased Feet Clearance, Flexed Trunk Factors Limiting Gait Function Factors Limiting Gait Function Decreased Activity Tolerance, Decreased Strength,Pain PT-OP-J Posture/Palpation/Skin Start: 01/14/21 08:36 Freq: Status: Active Protocol: Document 01/17/21 14:31 [facility] (Rec: 01/17/21 16:09 [facility] [id number]) Posture Evaluation Position Standing Head/C-Spine Posture Forward Head T-Spine Posture Increased Kyphosis L-Spine Posture Decreased Lordosis Scapula Posture (L) Protracted,(R) Protracted Arm Posture (L) Internally Rotated,(R) Internally Rotated Pelvis Posture (L) Rotated Anterior,(R) Rotated Anterior Hip Posture (L) Flexed,(R) Flexed Knee Posture (L) Excess Flexion,(R) Excess Flexion Ankle/Foot Posture (L) Forefoot Eversion,(R) Forefoot Eversion Palpation Assessment Location bilateral cervical paraspinals, UT Palpation Findings Soft Tissue Tightness,Muscle Guarding,Tenderness diana lumbar paraspinals Palpation Findings Soft Tissue Tightness,Muscle Guarding,Tenderness Palpation Details tight diana, right greater than left PT-OP-K Range of Motion Start: 01/14/21 08:36 Freq: Status: Active Protocol: Document 01/17/21 14:31 [facility] (Rec: 01/17/21 16:09 [facility] [id number]) Cervical Spine Range of Motion Cervical Spine Active Degrees Testing Position Sitting Flexion 58 Extension 5 Rotation Left 27 Rotation Right 25 Lateral Flexion Left 14 Lateral Flexion Right 17 ROM Limitations Soft Tissue Tightness,Bony Restriction,Pain Lumbar Spine Range of Motion Lumbar Spine Active Degrees Flexion 20 Extension 0 Rotation Left 15 Rotation Right 15 Lateral Flexion Left 25 Lateral Flexion Right 25 Comments -10 deg ext with c/o increased pain Hip Goniometric Range of Motion Hip Left Flexion w/Knee Flexed 105 Straight Leg Raise 45 Internal Rotation 25 External Rotation 70 Right Flexion w/Knee Flexed 110 Straight Leg Raise 45 Internal Rotation 15 External Rotation 20 Hip ROM Limitations Comments -5 diana hip ext PT-OP-L Special Tests Start: 01/14/21 08:36 Freq: Status: Active Protocol: Document 01/17/21 14:31 [facility] (Rec: 01/17/21 16:09 [facility] [id number]) Special Tests Lumbar Spine Special Tests Manual Traction Test Results positive for increasing pain Horacio Test Results positive for hip flexor tightness diana Straight Leg Raise Test Results positive for muscle tightness not radicular pain Compression Test Results positive right Comments pain radiating to right posterior knee Hip Special Tests Piriformis Test Results positive right Scour Test Test Results negative diana PT-OP-M Strength Start: 01/14/21 08:36 Freq: Status: Active Protocol: Document 01/17/21 14:31 [facility] (Rec: 01/17/21 16:09 [facility] [id number]) Cervical Spine Strength Cervical Spine Manual Muscle Testing Flexion (C1-2) 4 Good Extension 4- Good- Rotation Left 4 Good Rotation Right 4 Good Lateral Flexion Left (C3) 4 Good Lateral Flexion Right (C3) 4 Good Trunk Strength Trunk Manual Muscle Testing Flexion 3+ Fair+ Extension 3+ Fair+ Rotation Left 4- Good- Rotation Right 4- Good- Lateral Flexion Left 4- Good- Lateral Flexion Right 4- Good- Shoulder Strength Shoulder Manual Muscle Testing diana Flexion 4 Good Extension 4- Good- External Rotation 4- Good- Internal Rotation 4- Good- Elbow/Forearm Strength Elbow and Forearm Manual Muscle Testing diana Flexion (C6) 4 Good Extension (C7) 4 Good PT-OP-Q Treatments Start: 01/14/21 08:36 Freq: Status: Active Protocol: Document 01/17/21 14:31 [facility] (Rec: 01/17/21 16:09 [facility] [id number]) Self-Care/Home Management Treatment Education Patient Education Home Exercise Program Activities Self-Care/Home Management Activities reserve time at pool to start aquatic exercises PT-OP-R Modalities Start: 01/14/21 08:36 Freq: Status: Active Protocol: Document 01/17/21 14:31 SAK (Rec: 01/17/21 16:09 [facility]AK [id number]) Electric Stimulation Electric Stimulation Interferential Current (IFC) Body Location bilateral lumbar paraspinals Duration (Minutes) 15 Target/Sweep Sweep High/Low High Patient Position Sitting Combined With Heat/Cold Hot Pack Ultrasound Therapy Treatment Back Treatment Duration (minutes) 8 Coupling Medium Ultrasound Gel Frequency Setting (mHz) 1 Mode Setting Continuous Duty Cycle 100% Intensity Setting (w/cm2) 1.4 Comments bilateral lumbar paraspinals PT-OP-T Assessment and Plan Start: 01/14/21 08:36 Freq: Status: Active Protocol: Document 01/17/21 14:31 SAK (Rec: 01/17/21 16:09 [facility] [id number]) Physical Therapy Assessment Goals range of motion Impairment stiffness throughout patient's trunk and hips Short Term Goal (STG) Instruct in HEP to address soft tissue mobility impairments STG Duration 03/01/21 Willow Analyst Goal (LTG) Patient to demonstrate improvements in overall flexibility throughout trunk and hips and be safe and independent with HEP and aquatic exercise program for long-term fitness and pain management. LTG Duration 04/17/21 Strength Impairment weakness core and hips Short Term Goal (STG) Patient to begin land and aquatic exercise to address impairments in core and hip muscle strength with good tolerance STG Duration 03/01/21 Intermediate Goal (LTG) Improve strength to at least 4 +/5 throughout trunk and LE's with patient demonstrating safety and independence with HEP and aquatic exercise program for long-term fitness and pain management. LTG Duration 04/17/21 Pain Impairment Pain level 7/10 diana lumbar spine and 6/10 diana cervical spine Short Term Goal (STG) Decrease pain to no greater than 5/10 09/07/19: goal progress, 6/10 STG Duration 03/01/21 Intermediate Goal (LTG) Decrease pain to no greater than 3/10 LTG Duration 04/17/21 Gait Impairment Requires use of walker, unable to walk community distances Short Term Goal (STG) Patient able to walk community distances with FWW with with minimal to no increase in pain. STG Duration 03/01/21 Intermediate Goal (LTG) Patient able to ambulate with cane device for short community distances. LTG Duration 04/17/21 Activity tolerance Impairment Oswestry disability index score 48% Short Term Goal (STG) Decrease Oswestry score to no greater than 38% as measure of improved patient tolerance for usual daily activities 09/07/19: 52% STG Duration 03/01/21 Willow Analyst Goal (LTG) Decrease Oswestry score to no greater than 25% as measure of improved activity tolerance LTG Duration 04/17/21 Assessment Summary Assessment Patient presents to PT with c/ o function-limiting pain in his neck and back, weakness throughout UE's, LE's and trunk. Patient is no longer able to play golf and while he continues to drive, long car rides have become more difficult for him. He was previously benefiting from aquatic exercise but hasn't done this in over a year due to Covid shut down. His activity level and tolerance is much declined since last seen by this PT and he is not able to ambulate without a walker or use of furniture and goddard for support at home. This past year has been socially isolating for patient as well and his mood appears low. Feel he would benefit from physical therapy to help him decrease his pain, improve his strength and activity tolerance, and help him resume at least some of his prior activities, though feel golf is likely too impactful for his spine. He is going to go tour some assisted living facilities in [facility] near his daughter. Physical Therapy Plan Frequency and Duration Frequency of Treatment 2x/Week Duration of Treatment 12 weeks Plan of Care Start Date 01/17/21 Plan of Care End Date 04/17/21 Therapeutic Interventions Therapeutic Interventions Aquatic Therapy,Gait Training, Home Exercise Program,Manual Therapy,Neuromuscular Re- education,Patient/Caregiver Education,Self-Care/Home Management,Soft Tissue Mobilization,Taping, Therapeutic Activities, Therapeutic Exercises Modalities Electric Stimulation,Hot Packs ,Infrared Therapy,Ultrasound Next Visit Focus/Plan Next Note Type Treatment Note Next Visit Plan Start on recumbant elliptical for gentle strengthening, review HEP with emphasis on core and LE strengthening, postural correction and core stabilization.
--- NOTE | 2021-01-21 11:37 | PT.OTN ---
Current Diagnoses Other chronic pain (01/21/21) Chronic pain syndrome (01/21/21) Radiculopathy, lumbar region (01/21/21) Cervicalgia (01/21/21) Iliotibial band syndrome, right leg (01/21/21) Arthrodesis status (01/21/21) Other specified postprocedural states (01/21/21) Physical Therapy Treatment Note PT-OP-A Visit Information Start: 01/14/21 08:36 Freq: Status: Active Protocol: Document 01/21/21 10:31 SAK (Rec: 01/21/21 11:35 SAK [id number]) Out-Patient Physical Therapy Visit Information Visit Information Visit Type Treatment Note Visit Start Time 10:40 Visit Number 2 Evaluation Information Evaluation Date 01/17/21 Precautions Precautions history of fusion c/s and l/s with metal. PT-OP-B Current Condition Start: 01/14/21 08:36 Freq: Status: Active Protocol: Document 01/17/21 14:31 SAK (Rec: 01/17/21 16:09 SAK [id number]) Current Condition History of Current Condition Onset Date 1 year Current Complaints worsening LBP and neck pain and weakness arms and legs. History of Current Condition neck and back pain progressisvely worsening with decreased activity tolerance. Unable to golf any longer. Tried to drive to [place] 2018, couldn't make it due to pain. Last year coming back from [place] things deteriorated more. but was able to make it back. Numbness and tingling occasionally in hands. States legs give out occasionally and also spasm; states leg spasm in bed hurt his back a few nights ago. Uses walker to go any distance otherwise uses cane or furniture at home . Not currently doing any exercises, can walk about 75' at a time. Stopped doing aquatic exercise due to pool closure as result of Covid-19 and hasn't restarted. Admits to feeling some depressed/ disappointed. States Dr. Tirado recomended he look at going to assisted living and he plans to check out a few facilities in [place] close to his daughter. Prior Treatments and Tests No recent MRI or x-rays chest x-ray 6 months ago negative, states heart and lungs stable. Saw Dr. Littlejohn and 1 year ago; state nothing can be done Seeing Dr. Tirado: having osteopathic treatments; seems to help a little Treatment Goals Patient/Caregiver Goals Decrease pain, improve activity tolerance and function Prior Functional Status Baseline Function- ADL's Modified Independent Baseline Function- Mobility Modified Independent Baseline Function- Gait independent with device community distances Baseline Function- Work/School retired Baseline Function- Recreation/Hobbies restoring cars, golf Current Functional Impairments (Reported) Functional Limitations- ADL's increased time, more painful Functional Limitations- Mobility/Gait 75' with FWW max Functional Limitations- Recreation/ unable Hobbies PT-OP-C Subjective Start: 01/14/21 08:36 Freq: Status: Active Protocol: Document 01/21/21 10:31 [facility] (Rec: 01/21/21 11:35 [facility] [id number]) OP-PT Subjective Patient Comments Patient Comments Reports increased back pain after first PT session. Sees bait maker tomorrow. PT-OP-G Mobility & Gait Start: 01/14/21 08:36 Freq: Status: Active Protocol: Document 01/17/21 14:31 [facility] (Rec: 01/17/21 16:09 [facility] [id number]) OP Gait Assessment Gait Gait Assistance Required: Independent Distance (Feet) 75 Gait Deviations General Gait Pattern Decreased Stride Length, Decreased Feet Clearance, Flexed Trunk Factors Limiting Gait Function Factors Limiting Gait Function Decreased Activity Tolerance, Decreased Strength,Pain PT-OP-J Posture/Palpation/Skin Start: 01/14/21 08:36 Freq: Status: Active Protocol: Document 01/17/21 14:31 SAK (Rec: 01/17/21 16:09 [facility] [id number]) Posture Evaluation Position Standing Head/C-Spine Posture Forward Head T-Spine Posture Increased Kyphosis L-Spine Posture Decreased Lordosis Scapula Posture (L) Protracted,(R) Protracted Arm Posture (L) Internally Rotated,(R) Internally Rotated Pelvis Posture (L) Rotated Anterior,(R) Rotated Anterior Hip Posture (L) Flexed,(R) Flexed Knee Posture (L) Excess Flexion,(R) Excess Flexion Ankle/Foot Posture (L) Forefoot Eversion,(R) Forefoot Eversion Palpation Assessment Location bilateral cervical paraspinals, [place] Palpation Findings Soft Tissue Tightness,Muscle Guarding,Tenderness diana lumbar paraspinals Palpation Findings Soft Tissue Tightness,Muscle Guarding,Tenderness Palpation Details tight diana, right greater than left PT-OP-K Range of Motion Start: 01/14/21 08:36 Freq: Status: Active Protocol: Document 01/17/21 14:31 SAK (Rec: 01/17/21 16:09 SAK [id number]) Cervical Spine Range of Motion Cervical Spine Active Degrees Testing Position Sitting Flexion 58 Extension 5 Rotation Left 27 Rotation Right 25 Lateral Flexion Left 14 Lateral Flexion Right 17 ROM Limitations Soft Tissue Tightness,Bony Restriction,Pain Lumbar Spine Range of Motion Lumbar Spine Active Degrees Flexion 20 Extension 0 Rotation Left 15 Rotation Right 15 Lateral Flexion Left 25 Lateral Flexion Right 25 Comments -10 deg ext with c/o increased pain Hip Goniometric Range of Motion Hip Left Flexion w/Knee Flexed 105 Straight Leg Raise 45 Internal Rotation 25 External Rotation 70 Right Flexion w/Knee Flexed 110 Straight Leg Raise 45 Internal Rotation 15 External Rotation 20 Hip ROM Limitations Comments -5 diana hip ext PT-OP-L Special Tests Start: 01/14/21 08:36 Freq: Status: Active Protocol: Document 01/17/21 14:31 [facility] (Rec: 01/17/21 16:09 [facility] [id number]) Special Tests Lumbar Spine Special Tests Manual Traction Test Results positive for increasing pain Horacio Test Results positive for hip flexor tightness diana Straight Leg Raise Test Results positive for muscle tightness not radicular pain Compression Test Results positive right Comments pain radiating to right posterior knee Hip Special Tests Piriformis Test Results positive right Scour Test Test Results negative diana PT-OP-M Strength Start: 01/14/21 08:36 Freq: Status: Active Protocol: Document 01/17/21 14:31 [facility] (Rec: 01/17/21 16:09 [facility] [id number]) Cervical Spine Strength Cervical Spine Manual Muscle Testing Flexion (C1-2) 4 Good Extension 4- Good- Rotation Left 4 Good Rotation Right 4 Good Lateral Flexion Left (C3) 4 Good Lateral Flexion Right (C3) 4 Good Trunk Strength Trunk Manual Muscle Testing Flexion 3+ Fair+ Extension 3+ Fair+ Rotation Left 4- Good- Rotation Right 4- Good- Lateral Flexion Left 4- Good- Lateral Flexion Right 4- Good- Shoulder Strength Shoulder Manual Muscle Testing diana Flexion 4 Good Extension 4- Good- External Rotation 4- Good- Internal Rotation 4- Good- Elbow/Forearm Strength Elbow and Forearm Manual Muscle Testing diana Flexion (C6) 4 Good Extension (C7) 4 Good PT-OP-Q Treatments Start: 01/14/21 08:36 Freq: Status: Active Protocol: Document 01/21/21 10:31 [facility] (Rec: 01/21/21 11:35 [facility] [id number]) Cardio Equipment Recumbent Stepper (Sci-Fit) Duration (Minutes) 7 Resistance 1 Seat Position 15 Therapeutic Exercises Supine Exercises gluteal sets Reps/Minutes 10x hip ab/ER Reps/Minutes 10x pillow squeeze Reps/Minutes 10x Manual Therapy Treatment Soft Tissue Mobilization lumbar paraspinals, piriformis Mobilization Type Myofascial Release,Rolling, Strumming Intensity/Depth Moderate Body Position Sidelying Self-Care/Home Management Treatment Education Patient Education Home Exercise Program PT-OP-R Modalities Start: 01/14/21 08:36 Freq: Status: Active Protocol: Document 01/21/21 10:31 [facility] (Rec: 01/21/21 11:35 [facility] [id number]) Electric Stimulation Electric Stimulation Interferential Current (IFC) Body Location bilateral lumbar paraspinals Duration (Minutes) 15 Target/Sweep Sweep High/Low High Patient Position Sitting Combined With Heat/Cold Hot Pack Ultrasound Therapy Treatment Back Treatment Duration (minutes) 8 Coupling Medium Ultrasound Gel Frequency Setting (mHz) 1 Mode Setting Continuous Duty Cycle 100% Intensity Setting (w/cm2) 1.4 Comments bilateral lumbar paraspinals PT-OP-T Assessment and Plan Start: 01/14/21 08:36 Freq: Status: Active Protocol: Document 01/21/21 10:31 [facility] (Rec: 01/21/21 11:35 [facility] [id number]) Physical Therapy Assessment Goals range of motion Impairment stiffness throughout patient's trunk and hips Short Term Goal (STG) Instruct in HEP to address soft tissue mobility impairments STG Duration 03/01/21 [facility] Goal (LTG) Patient to demonstrate improvements in overall flexibility throughout trunk and hips and be safe and independent with HEP and aquatic exercise program for long-term fitness and pain management. LTG Duration 04/17/21 Strength Impairment weakness core and hips Short Term Goal (STG) Patient to begin land and aquatic exercise to address impairments in core and hip muscle strength with good tolerance STG Duration 03/01/21 [facility] Goal (LTG) Improve strength to at least 4 +/5 throughout trunk and LE's with patient demonstrating safety and independence with HEP and aquatic exercise program for long-term fitness and pain management. LTG Duration 04/17/21 Pain Impairment Pain level 7/10 diana lumbar spine and 6/10 diana cervical spine Short Term Goal (STG) Decrease pain to no greater than 5/10 09/07/19: goal progress, 6/10 STG Duration 03/01/21 [facility] Goal (LTG) Decrease pain to no greater than 3/10 LTG Duration 04/17/21 Gait Impairment Requires use of walker, unable to walk community distances Short Term Goal (STG) Patient able to walk community distances with FWW with with minimal to no increase in pain. STG Duration 03/01/21 [facility] Goal (LTG) Patient able to ambulate with cane device for short community distances. LTG Duration 04/17/21 Activity tolerance Impairment Oswestry disability index score 48% Short Term Goal (STG) Decrease Oswestry score to no greater than 38% as measure of improved patient tolerance for usual daily activities 09/07/19: 52% STG Duration 03/01/21 [facility] Goal (LTG) Decrease Oswestry score to no greater than 25% as measure of improved activity tolerance LTG Duration 04/17/21 Physical Therapy Plan Frequency and Duration Frequency of Treatment 2x/Week Duration of Treatment 12 weeks Plan of Care Start Date 01/17/21 Plan of Care End Date 04/17/21 Therapeutic Interventions Therapeutic Interventions Aquatic Therapy,Gait Training, Home Exercise Program,Manual Therapy,Neuromuscular Re- education,Patient/Caregiver Education,Self-Care/Home Management,Soft Tissue Mobilization,Taping, Therapeutic Activities, Therapeutic Exercises Modalities Electric Stimulation,Hot Packs ,Infrared Therapy,Ultrasound Next Visit Focus/Plan Next Note Type Treatment Note Next Visit Plan Assess response to today's treatment, progress ther ex as toleated. Patient to reserve time to go to the pool to do aquatic exercise.
--- NOTE | 2021-01-28 17:08 | PT.OTN ---
Current Diagnoses Other chronic pain (01/28/21) Chronic pain syndrome (01/28/21) Radiculopathy, lumbar region (01/28/21) Cervicalgia (01/28/21) Iliotibial band syndrome, right leg (01/28/21) Arthrodesis status (01/28/21) Other specified postprocedural states (01/28/21) Physical Therapy Treatment Note PT-OP-A Visit Information Start: 01/14/21 08:36 Freq: Status: Active Protocol: Document 01/28/21 14:30 SAK (Rec: 01/28/21 15:16 SAK [id number]) Out-Patient Physical Therapy Visit Information Visit Information Visit Type Treatment Note Visit Start Time 14:30 Visit Stop Time 15:25 Total Visit Minutes 55 Visit Number 3 Evaluation Information Evaluation Date 01/17/21 Precautions Precautions history of fusion c/s and l/s with metal. PT-OP-B Current Condition Start: 01/14/21 08:36 Freq: Status: Active Protocol: Document 01/17/21 14:31 SAK (Rec: 01/17/21 16:[address] [facility] [id number]) Current Condition History of Current Condition Onset Date 1 year Current Complaints worsening LBP and neck pain and weakness arms and legs. History of Current Condition neck and back pain progressisvely worsening with decreased activity tolerance. Unable to golf any longer. Tried to drive to [place] 2018, couldn't make it due to pain. Last year coming back from [place] things deteriorated more. but was able to make it back. Numbness and tingling occasionally in hands. States legs give out occasionally and also spasm; states leg spasm in bed hurt his back a few nights ago. Uses walker to go any distance otherwise uses cane or furniture at home . Not currently doing any exercises, can walk about 75' at a time. Stopped doing aquatic exercise due to pool closure as result of Covid-19 and hasn't restarted. Admits to feeling some depressed/ disappointed. States Dr. Tirado recomended he look at going to assisted living and he plans to check out a few facilities in [place] close to his daughter. Prior Treatments and Tests No recent MRI or x-rays chest x-ray 6 months ago negative, states heart and lungs stable. Saw Dr. Littlejohn and 1 year ago; state nothing can be done Seeing Dr. Tirado: having osteopathic treatments; seems to help a little Treatment Goals Patient/Caregiver Goals Decrease pain, improve activity tolerance and function Prior Functional Status Baseline Function- ADL's Modified Independent Baseline Function- Mobility Modified Independent Baseline Function- Gait independent with device community distances Baseline Function- Work/School retired Baseline Function- Recreation/Hobbies restoring cars, golf Current Functional Impairments (Reported) Functional Limitations- ADL's increased time, more painful Functional Limitations- Mobility/Gait 75' with FWW max Functional Limitations- Recreation/ unable Hobbies PT-OP-C Subjective Start: 01/14/21 08:36 Freq: Status: Active Protocol: Document 01/28/21 14:30 SAK (Rec: 01/28/21 15:[address] [facility] [id number]) OP-PT Subjective Patient Comments Patient Comments Reports had to cancel PT last week due to increase in back and leg pain. [place] ok after PT, increase in pain the next day. Takes less to agitate his back; thinks still related to when he dropped his leg off the bed. Reports not sleeping well. When in pain takes medication, uses heat, no exercises. PT-OP-G Mobility & Gait Start: 01/14/21 08:36 Freq: Status: Active Protocol: Document 01/17/21 14:31 SAK (Rec: 01/17/21 16:[address] [facility] [id number]) OP Gait Assessment Gait Gait Assistance Required: Independent Distance (Feet) 75 Gait Deviations General Gait Pattern Decreased Stride Length, Decreased Feet Clearance, Flexed Trunk Factors Limiting Gait Function Factors Limiting Gait Function Decreased Activity Tolerance, Decreased Strength,Pain PT-OP-J Posture/Palpation/Skin Start: 01/14/21 08:36 Freq: Status: Active Protocol: Document 01/17/21 14:31 SAK (Rec: 01/17/21 16:[address] [facility] [id number]) Posture Evaluation Position Standing Head/C-Spine Posture Forward Head T-Spine Posture Increased Kyphosis L-Spine Posture Decreased Lordosis Scapula Posture (L) Protracted,(R) Protracted Arm Posture (L) Internally Rotated,(R) Internally Rotated Pelvis Posture (L) Rotated Anterior,(R) Rotated Anterior Hip Posture (L) Flexed,(R) Flexed Knee Posture (L) Excess Flexion,(R) Excess Flexion Ankle/Foot Posture (L) Forefoot Eversion,(R) Forefoot Eversion Palpation Assessment Location bilateral cervical paraspinals, [place] Palpation Findings Soft Tissue Tightness,Muscle Guarding,Tenderness diana lumbar paraspinals Palpation Findings Soft Tissue Tightness,Muscle Guarding,Tenderness Palpation Details tight diana, right greater than left PT-OP-K Range of Motion Start: 01/14/21 08:36 Freq: Status: Active Protocol: Document 01/17/21 14:31 SAK (Rec: 01/17/21 16:[address] [facility] [id number]) Cervical Spine Range of Motion Cervical Spine Active Degrees Testing Position Sitting Flexion 58 Extension 5 Rotation Left 27 Rotation Right 25 Lateral Flexion Left 14 Lateral Flexion Right 17 ROM Limitations Soft Tissue Tightness,Bony Restriction,Pain Lumbar Spine Range of Motion Lumbar Spine Active Degrees Flexion 20 Extension 0 Rotation Left 15 Rotation Right 15 Lateral Flexion Left 25 Lateral Flexion Right 25 Comments -10 deg ext with c/o increased pain Hip Goniometric Range of Motion Hip Left Flexion w/Knee Flexed 105 Straight Leg Raise 45 Internal Rotation 25 External Rotation 70 Right Flexion w/Knee Flexed 110 Straight Leg Raise 45 Internal Rotation 15 External Rotation 20 Hip ROM Limitations Comments -5 diana hip ext PT-OP-L Special Tests Start: 01/14/21 08:36 Freq: Status: Active Protocol: Document 01/17/21 14:31 SAK (Rec: 01/17/21 16:[address] [facility] [id number]) Special Tests Lumbar Spine Special Tests Manual Traction Test Results positive for increasing pain Horacio Test Results positive for hip flexor tightness diana Straight Leg Raise Test Results positive for muscle tightness not radicular pain Compression Test Results positive right Comments pain radiating to right posterior knee Hip Special Tests Piriformis Test Results positive right Scour Test Test Results negative diana PT-OP-M Strength Start: 01/14/21 08:36 Freq: Status: Active Protocol: Document 01/17/21 14:31 SAK (Rec: 01/17/21 16:[address] [facility] [id number]) Cervical Spine Strength Cervical Spine Manual Muscle Testing Flexion (C1-2) 4 Good Extension 4- Good- Rotation Left 4 Good Rotation Right 4 Good Lateral Flexion Left (C3) 4 Good Lateral Flexion Right (C3) 4 Good Trunk Strength Trunk Manual Muscle Testing Flexion 3+ Fair+ Extension 3+ Fair+ Rotation Left 4- Good- Rotation Right 4- Good- Lateral Flexion Left 4- Good- Lateral Flexion Right 4- Good- Shoulder Strength Shoulder Manual Muscle Testing diana Flexion 4 Good Extension 4- Good- External Rotation 4- Good- Internal Rotation 4- Good- Elbow/Forearm Strength Elbow and Forearm Manual Muscle Testing diana Flexion (C6) 4 Good Extension (C7) 4 Good PT-OP-Q Treatments Start: 01/14/21 08:36 Freq: Status: Active Protocol: Document 01/28/21 14:30 SAK (Rec: 01/28/21 15:16 SAK [id number]) Cardio Equipment Recumbent Stepper (Sci-Fit) Duration (Minutes) 4 Resistance 1 Seat Position 15 Other stopped due to right LE pain Therapeutic Exercises Sitting Exercises hip ab/ER Reps/Minutes 10x ball squeeze Reps/Minutes 10x gluteal set Reps/Minutes 10x abdominal corseting Reps/Minutes 10x Self-Care/Home Management Treatment Education Patient Education Home Exercise Program,Pain Management,Posture Other Education important to do HEP when hurting, modify as needed PT-OP-R Modalities Start: 01/14/21 08:36 Freq: Status: Active Protocol: Document 01/21/21 10:31 SAK (Rec: 01/21/21 11:35 SAK [id number]) Electric Stimulation Electric Stimulation Interferential Current (IFC) Body Location bilateral lumbar paraspinals Duration (Minutes) 15 Target/Sweep Sweep High/Low High Patient Position Sitting Combined With Heat/Cold Hot Pack Ultrasound Therapy Treatment Back Treatment Duration (minutes) 8 Coupling Medium Ultrasound Gel Frequency Setting (mHz) 1 Mode Setting Continuous Duty Cycle 100% Intensity Setting (w/cm2) 1.4 Comments bilateral lumbar paraspinals PT-OP-T Assessment and Plan Start: 01/14/21 08:36 Freq: Status: Active Protocol: Document 01/28/21 14:30 SAK (Rec: 01/28/21 15:16 SAK [id number]) Physical Therapy Assessment Goals range of motion Impairment stiffness throughout patient's trunk and hips Short Term Goal (STG) Instruct in HEP to address soft tissue mobility impairments STG Duration 03/01/21 [place] Goal (LTG) Patient to demonstrate improvements in overall flexibility throughout trunk and hips and be safe and independent with HEP and aquatic exercise program for long-term fitness and pain management. LTG Duration 04/17/21 Strength Impairment weakness core and hips Short Term Goal (STG) Patient to begin land and aquatic exercise to address impairments in core and hip muscle strength with good tolerance STG Duration 03/01/21 [place] Goal (LTG) Improve strength to at least 4 +/5 throughout trunk and LE's with patient demonstrating safety and independence with HEP and aquatic exercise program for long-term fitness and pain management. LTG Duration 04/17/21 Pain Impairment Pain level 7/10 diana lumbar spine and 6/10 diana cervical spine Short Term Goal (STG) Decrease pain to no greater than 5/10 09/07/19: goal progress, 6/10 STG Duration 03/01/21 [place] Goal (LTG) Decrease pain to no greater than 3/10 LTG Duration 04/17/21 Gait Impairment Requires use of walker, unable to walk community distances Short Term Goal (STG) Patient able to walk community distances with FWW with with minimal to no increase in pain. STG Duration 03/01/21 [place] Goal (LTG) Patient able to ambulate with cane device for short community distances. LTG Duration 04/17/21 Activity tolerance Impairment Oswestry disability index score 48% Short Term Goal (STG) Decrease Oswestry score to no greater than 38% as measure of improved patient tolerance for usual daily activities 09/07/19: 52% STG Duration 03/01/21 Assisted Goal (LTG) Decrease Oswestry score to no greater than 25% as measure of improved activity tolerance LTG Duration 04/17/21 Assessment Summary Assessment Patient verbalized increased pain day after last PT treatment. He was encouraged to come to PT if hurting and we can modify treatment. Low tolerance for Sci-Fit today. IT band extremely tight and painful. Trial kinesiotape for inhibition today. He has not yet scheduled a time at the pool for aquatic exercise and was strongly encouraged to do this as that seems to be best tolerated activity for Jori. Physical Therapy Plan Frequency and Duration Frequency of Treatment 2x/Week Duration of Treatment 12 weeks Plan of Care Start Date 01/17/21 Plan of Care End Date 04/17/21 Therapeutic Interventions Therapeutic Interventions Aquatic Therapy,Gait Training, Home Exercise Program,Manual Therapy,Neuromuscular Re- education,Patient/Caregiver Education,Self-Care/Home Management,Soft Tissue Mobilization,Taping, Therapeutic Activities, Therapeutic Exercises Modalities Electric Stimulation,Hot Packs ,Infrared Therapy,Ultrasound Next Visit Focus/Plan Next Note Type Treatment Note Next Visit Plan Assess response to today's treatment, gently progress ther ex as tolerated. Encourage gentle exercises when not feeling well. Patient to reserve time to go to the pool to do aquatic exercise. Consider ultrasound and STM in sitting as patient tolerates sitting and forward flexion well.
--- NOTE | 2021-01-30 17:21 | PT.OTN ---
Current Diagnoses Other chronic pain (01/30/21) Chronic pain syndrome (01/30/21) Radiculopathy, lumbar region (01/30/21) Cervicalgia (01/30/21) Iliotibial band syndrome, right leg (01/30/21) Arthrodesis status (01/30/21) Other specified postprocedural states (01/30/21) Physical Therapy Treatment Note PT-OP-A Visit Information Start: 01/14/21 08:36 Freq: Status: Active Protocol: Document 01/30/21 09:51 [facility] (Rec: 01/30/21 10:30 [facility] [id number]) Out-Patient Physical Therapy Visit Information Visit Information Visit Type Treatment Note Visit Start Time 09:45 Visit Stop Time 10:40 Total Visit Minutes 55 Visit Number 4 Evaluation Information Evaluation Date 01/17/21 Precautions Precautions history of fusion c/s and l/s with metal. PT-OP-B Current Condition Start: 01/14/21 08:36 Freq: Status: Active Protocol: Document 01/17/21 14:31 [facility] (Rec: 01/17/21 16:09 [facility] [id number]) Current Condition History of Current Condition Onset Date 1 year Current Complaints worsening LBP and neck pain and weakness arms and legs. History of Current Condition neck and back pain progressisvely worsening with decreased activity tolerance. Unable to golf any longer. Tried to drive to [place] 2018, couldn't make it due to pain. Last year coming back from [place] things deteriorated more. but was able to make it back. Numbness and tingling occasionally in hands. States legs give out occasionally and also spasm; states leg spasm in bed hurt his back a few nights ago. Uses walker to go any distance otherwise uses cane or furniture at home . Not currently doing any exercises, can walk about 75' at a time. Stopped doing aquatic exercise due to pool closure as result of Covid-19 and hasn't restarted. Admits to feeling some depressed/ disappointed. States Dr. Tirado recomended he look at going to assisted living and he plans to check out a few facilities in [place] close to his daughter. Prior Treatments and Tests No recent MRI or x-rays chest x-ray 6 months ago negative, states heart and lungs stable. Saw Dr. Littlejohn and 1 year ago; state nothing can be done Seeing Dr. Tirado: having osteopathic treatments; seems to help a little Treatment Goals Patient/Caregiver Goals Decrease pain, improve activity tolerance and function Prior Functional Status Baseline Function- ADL's Modified Independent Baseline Function- Mobility Modified Independent Baseline Function- Gait independent with device community distances Baseline Function- Work/School retired Baseline Function- Recreation/Hobbies restoring cars, golf Current Functional Impairments (Reported) Functional Limitations- ADL's increased time, more painful Functional Limitations- Mobility/Gait 75' with FWW max Functional Limitations- Recreation/ unable Hobbies PT-OP-C Subjective Start: 01/14/21 08:36 Freq: Status: Active Protocol: Document 01/30/21 09:51 [facility] (Rec: 01/30/21 10:30 [facility] [id number]) OP-PT Subjective Patient Comments Patient Comments Kinesiotape helpful in decreasing leg pain, LBP a little better day after PT. PT-OP-G Mobility & Gait Start: 01/14/21 08:36 Freq: Status: Active Protocol: Document 01/17/21 14:31 [facility] (Rec: 01/17/21 16:09 [facility] [id number]) OP Gait Assessment Gait Gait Assistance Required: Independent Distance (Feet) 75 Gait Deviations General Gait Pattern Decreased Stride Length, Decreased Feet Clearance, Flexed Trunk Factors Limiting Gait Function Factors Limiting Gait Function Decreased Activity Tolerance, Decreased Strength,Pain PT-OP-J Posture/Palpation/Skin Start: 01/14/21 08:36 Freq: Status: Active Protocol: Document 01/17/21 14:31 [facility] (Rec: 01/17/21 16:09 [facility] [id number]) Posture Evaluation Position Standing Head/C-Spine Posture Forward Head T-Spine Posture Increased Kyphosis L-Spine Posture Decreased Lordosis Scapula Posture (L) Protracted,(R) Protracted Arm Posture (L) Internally Rotated,(R) Internally Rotated Pelvis Posture (L) Rotated Anterior,(R) Rotated Anterior Hip Posture (L) Flexed,(R) Flexed Knee Posture (L) Excess Flexion,(R) Excess Flexion Ankle/Foot Posture (L) Forefoot Eversion,(R) Forefoot Eversion Palpation Assessment Location bilateral cervical paraspinals, [place] Palpation Findings Soft Tissue Tightness,Muscle Guarding,Tenderness diana lumbar paraspinals Palpation Findings Soft Tissue Tightness,Muscle Guarding,Tenderness Palpation Details tight diana, right greater than left PT-OP-K Range of Motion Start: 01/14/21 08:36 Freq: Status: Active Protocol: Document 01/17/21 14:31 [facility] (Rec: 01/17/21 16:09 [facility] [id number]) Cervical Spine Range of Motion Cervical Spine Active Degrees Testing Position Sitting Flexion 58 Extension 5 Rotation Left 27 Rotation Right 25 Lateral Flexion Left 14 Lateral Flexion Right 17 ROM Limitations Soft Tissue Tightness,Bony Restriction,Pain Lumbar Spine Range of Motion Lumbar Spine Active Degrees Flexion 20 Extension 0 Rotation Left 15 Rotation Right 15 Lateral Flexion Left 25 Lateral Flexion Right 25 Comments -10 deg ext with c/o increased pain Hip Goniometric Range of Motion Hip Left Flexion w/Knee Flexed 105 Straight Leg Raise 45 Internal Rotation 25 External Rotation 70 Right Flexion w/Knee Flexed 110 Straight Leg Raise 45 Internal Rotation 15 External Rotation 20 Hip ROM Limitations Comments -5 diana hip ext PT-OP-L Special Tests Start: 01/14/21 08:36 Freq: Status: Active Protocol: Document 01/17/21 14:31 [facility] (Rec: 01/17/21 16:09 [facility] [id number]) Special Tests Lumbar Spine Special Tests Manual Traction Test Results positive for increasing pain Horacio Test Results positive for hip flexor tightness diana Straight Leg Raise Test Results positive for muscle tightness not radicular pain Compression Test Results positive right Comments pain radiating to right posterior knee Hip Special Tests Piriformis Test Results positive right Scour Test Test Results negative diana PT-OP-M Strength Start: 01/14/21 08:36 Freq: Status: Active Protocol: Document 01/17/21 14:31 [facility] (Rec: 01/17/21 16:09 [facility] [id number]) Cervical Spine Strength Cervical Spine Manual Muscle Testing Flexion (C1-2) 4 Good Extension 4- Good- Rotation Left 4 Good Rotation Right 4 Good Lateral Flexion Left (C3) 4 Good Lateral Flexion Right (C3) 4 Good Trunk Strength Trunk Manual Muscle Testing Flexion 3+ Fair+ Extension 3+ Fair+ Rotation Left 4- Good- Rotation Right 4- Good- Lateral Flexion Left 4- Good- Lateral Flexion Right 4- Good- Shoulder Strength Shoulder Manual Muscle Testing diana Flexion 4 Good Extension 4- Good- External Rotation 4- Good- Internal Rotation 4- Good- Elbow/Forearm Strength Elbow and Forearm Manual Muscle Testing diana Flexion (C6) 4 Good Extension (C7) 4 Good PT-OP-Q Treatments Start: 01/14/21 08:36 Freq: Status: Active Protocol: Document 01/30/21 09:51 [facility] (Rec: 01/30/21 10:30 [facility] [id number]) Cardio Equipment Recumbent Stepper (Sci-Fit) Duration (Minutes) 10 Resistance 2 Seat Position 15 Therapeutic Exercises Sitting Exercises row, sh ext Equipment Used L1 TB Reps/Minutes 10x Manual Therapy Treatment Soft Tissue Mobilization lumbar paraspinals, piriformis Mobilization Type Myofascial Release,Rolling, Strumming Intensity/Depth Moderate Body Position Sitting PT-OP-R Modalities Start: 01/14/21 08:36 Freq: Status: Active Protocol: Document 01/30/21 09:51 [facility] (Rec: 01/30/21 10:30 [facility] [id number]) Electric Stimulation Electric Stimulation Interferential Current (IFC) Body Location bilateral lumbar paraspinals Duration (Minutes) 15 Target/Sweep Sweep High/Low High Patient Position Sitting Combined With Heat/Cold Hot Pack Ultrasound Therapy Treatment Back Treatment Duration (minutes) 8 Patient Position Sitting Coupling Medium Ultrasound Gel Frequency Setting (mHz) 1 Mode Setting Continuous Duty Cycle 100% Intensity Setting (w/cm2) 1.4 Comments bilateral lumbar paraspinals PT-OP-T Assessment and Plan Start: 01/14/21 08:36 Freq: Status: Active Protocol: Document 01/30/21 09:51 [facility] (Rec: 01/30/21 10:30 [facility] [id number]) Physical Therapy Assessment Goals range of motion Impairment stiffness throughout patient's trunk and hips Short Term Goal (STG) Instruct in HEP to address soft tissue mobility impairments STG Duration 03/01/21 [employer] Goal (LTG) Patient to demonstrate improvements in overall flexibility throughout trunk and hips and be safe and independent with HEP and aquatic exercise program for long-term fitness and pain management. LTG Duration 04/17/21 Strength Impairment weakness core and hips Short Term Goal (STG) Patient to begin land and aquatic exercise to address impairments in core and hip muscle strength with good tolerance STG Duration 03/01/21 [employer] Goal (LTG) Improve strength to at least 4 +/5 throughout trunk and LE's with patient demonstrating safety and independence with HEP and aquatic exercise program for long-term fitness and pain management. LTG Duration 04/17/21 Pain Impairment Pain level 7/10 diana lumbar spine and 6/10 diana cervical spine Short Term Goal (STG) Decrease pain to no greater than 5/10 09/07/19: goal progress, 6/10 STG Duration 03/01/21 [employer] Goal (LTG) Decrease pain to no greater than 3/10 LTG Duration 04/17/21 Gait Impairment Requires use of walker, unable to walk community distances Short Term Goal (STG) Patient able to walk community distances with FWW with with minimal to no increase in pain. STG Duration 03/01/21 [employer] Goal (LTG) Patient able to ambulate with cane device for short community distances. LTG Duration 04/17/21 Activity tolerance Impairment Oswestry disability index score 48% Short Term Goal (STG) Decrease Oswestry score to no greater than 38% as measure of improved patient tolerance for usual daily activities 09/07/19: 52% STG Duration 03/01/21 [facility] Goal (LTG) Decrease Oswestry score to no greater than 25% as measure of improved activity tolerance LTG Duration 04/17/21 Assessment Summary Assessment Patient tolerated full 10 min on Sci-Fit recumbant stepper today without c/o increase in pain. Kinesiotape helpful for decreasing LE pain, possibly back pain. Trial ultrasound and STM with patient seated leaning forward onto prone pillow with good tolerance. Physical Therapy Plan Frequency and Duration Frequency of Treatment 2x/Week Duration of Treatment 12 weeks Plan of Care Start Date 01/17/21 Plan of Care End Date 04/17/21 Therapeutic Interventions Therapeutic Interventions Aquatic Therapy,Gait Training, Home Exercise Program,Manual Therapy,Neuromuscular Re- education,Patient/Caregiver Education,Self-Care/Home Management,Soft Tissue Mobilization,Taping, Therapeutic Activities, Therapeutic Exercises Modalities Electric Stimulation,Hot Packs ,Infrared Therapy,Ultrasound Next Visit Focus/Plan Next Note Type Treatment Note Next Visit Plan Continue to progress with gentle strengthening, core stabilization, and flexibility as patient tolerates. Evaluate response to ultrasound and manual therapy in seated position vs. sidelying
--- NOTE | 2021-02-04 17:42 | PT.OTN ---
Current Diagnoses Other chronic pain (02/04/21) Chronic pain syndrome (02/04/21) Radiculopathy, lumbar region (02/04/21) Cervicalgia (02/04/21) Iliotibial band syndrome, right leg (02/04/21) Arthrodesis status (02/04/21) Other specified postprocedural states (02/04/21) Physical Therapy Treatment Note PT-OP-A Visit Information Start: 01/14/21 08:36 Freq: Status: Active Protocol: Document 02/04/21 13:03 [facility] (Rec: 02/04/21 13:24 [facility] [id number]) Out-Patient Physical Therapy Visit Information Visit Information Visit Type Treatment Note Visit Start Time 13:00 Visit Stop Time 14:00 Total Visit Minutes 60 Visit Number 5 Evaluation Information Evaluation Date 01/17/21 Precautions Precautions history of fusion c/s and l/s with metal. PT-OP-B Current Condition Start: 01/14/21 08:36 Freq: Status: Active Protocol: Document 01/17/21 14:31 [facility] (Rec: 01/17/21 16:09 [facility] [id number]) Current Condition History of Current Condition Onset Date 1 year Current Complaints worsening LBP and neck pain and weakness arms and legs. History of Current Condition neck and back pain progressisvely worsening with decreased activity tolerance. Unable to golf any longer. Tried to drive to [place] 2018, couldn't make it due to pain. Last year coming back from [place] things deteriorated more. but was able to make it back. Numbness and tingling occasionally in hands. States legs give out occasionally and also spasm; states leg spasm in bed hurt his back a few nights ago. Uses walker to go any distance otherwise uses cane or furniture at home . Not currently doing any exercises, can walk about 75' at a time. Stopped doing aquatic exercise due to pool closure as result of Covid-19 and hasn't restarted. Admits to feeling some depressed/ disappointed. States Dr. Tirado recomended he look at going to assisted living and he plans to check out a few facilities in [place] close to his daughter. Prior Treatments and Tests No recent MRI or x-rays chest x-ray 6 months ago negative, states heart and lungs stable. Saw Dr. Littlejohn and 1 year ago; state nothing can be done Seeing Dr. Tirado: having osteopathic treatments; seems to help a little Treatment Goals Patient/Caregiver Goals Decrease pain, improve activity tolerance and function Prior Functional Status Baseline Function- ADL's Modified Independent Baseline Function- Mobility Modified Independent Baseline Function- Gait independent with device community distances Baseline Function- Work/School retired Baseline Function- Recreation/Hobbies restoring cars, golf Current Functional Impairments (Reported) Functional Limitations- ADL's increased time, more painful Functional Limitations- Mobility/Gait 75' with FWW max Functional Limitations- Recreation/ unable Hobbies PT-OP-C Subjective Start: 01/14/21 08:36 Freq: Status: Active Protocol: Document 02/04/21 13:03 [facility] (Rec: 02/04/21 13:24 [facility] [id number]) OP-PT Subjective Patient Comments Patient Comments Likes the kinesiotape. Wants to be taught how to kinesiotape ashley. feels like therapy is helping States he sees Dr. Tirado tomorrow, wants to ask him about recently starting to shake a bit. PT-OP-G Mobility & Gait Start: 01/14/21 08:36 Freq: Status: Active Protocol: Document 01/17/21 14:31 [facility] (Rec: 01/17/21 16:09 [facility] [id number]) OP Gait Assessment Gait Gait Assistance Required: Independent Distance (Feet) 75 Gait Deviations General Gait Pattern Decreased Stride Length, Decreased Feet Clearance, Flexed Trunk Factors Limiting Gait Function Factors Limiting Gait Function Decreased Activity Tolerance, Decreased Strength,Pain PT-OP-J Posture/Palpation/Skin Start: 01/14/21 08:36 Freq: Status: Active Protocol: Document 01/17/21 14:31 [facility] (Rec: 01/17/21 16:09 [facility] [id number]) Posture Evaluation Position Standing Head/C-Spine Posture Forward Head T-Spine Posture Increased Kyphosis L-Spine Posture Decreased Lordosis Scapula Posture (L) Protracted,(R) Protracted Arm Posture (L) Internally Rotated,(R) Internally Rotated Pelvis Posture (L) Rotated Anterior,(R) Rotated Anterior Hip Posture (L) Flexed,(R) Flexed Knee Posture (L) Excess Flexion,(R) Excess Flexion Ankle/Foot Posture (L) Forefoot Eversion,(R) Forefoot Eversion Palpation Assessment Location bilateral cervical paraspinals, [place] Palpation Findings Soft Tissue Tightness,Muscle Guarding,Tenderness diana lumbar paraspinals Palpation Findings Soft Tissue Tightness,Muscle Guarding,Tenderness Palpation Details tight diana, right greater than left PT-OP-K Range of Motion Start: 01/14/21 08:36 Freq: Status: Active Protocol: Document 01/17/21 14:31 [facility] (Rec: 01/17/21 16:09 [facility] [id number]) Cervical Spine Range of Motion Cervical Spine Active Degrees Testing Position Sitting Flexion 58 Extension 5 Rotation Left 27 Rotation Right 25 Lateral Flexion Left 14 Lateral Flexion Right 17 ROM Limitations Soft Tissue Tightness,Bony Restriction,Pain Lumbar Spine Range of Motion Lumbar Spine Active Degrees Flexion 20 Extension 0 Rotation Left 15 Rotation Right 15 Lateral Flexion Left 25 Lateral Flexion Right 25 Comments -10 deg ext with c/o increased pain Hip Goniometric Range of Motion Hip Left Flexion w/Knee Flexed 105 Straight Leg Raise 45 Internal Rotation 25 External Rotation 70 Right Flexion w/Knee Flexed 110 Straight Leg Raise 45 Internal Rotation 15 External Rotation 20 Hip ROM Limitations Comments -5 diana hip ext PT-OP-L Special Tests Start: 01/14/21 08:36 Freq: Status: Active Protocol: Document 01/17/21 14:31 [facility] (Rec: 01/17/21 16:09 [facility] [id number]) Special Tests Lumbar Spine Special Tests Manual Traction Test Results positive for increasing pain Horacio Test Results positive for hip flexor tightness diana Straight Leg Raise Test Results positive for muscle tightness not radicular pain Compression Test Results positive right Comments pain radiating to right posterior knee Hip Special Tests Piriformis Test Results positive right Scour Test Test Results negative diana PT-OP-M Strength Start: 01/14/21 08:36 Freq: Status: Active Protocol: Document 01/17/21 14:31 [facility] (Rec: 01/17/21 16:09 [facility] [id number]) Cervical Spine Strength Cervical Spine Manual Muscle Testing Flexion (C1-2) 4 Good Extension 4- Good- Rotation Left 4 Good Rotation Right 4 Good Lateral Flexion Left (C3) 4 Good Lateral Flexion Right (C3) 4 Good Trunk Strength Trunk Manual Muscle Testing Flexion 3+ Fair+ Extension 3+ Fair+ Rotation Left 4- Good- Rotation Right 4- Good- Lateral Flexion Left 4- Good- Lateral Flexion Right 4- Good- Shoulder Strength Shoulder Manual Muscle Testing diana Flexion 4 Good Extension 4- Good- External Rotation 4- Good- Internal Rotation 4- Good- Elbow/Forearm Strength Elbow and Forearm Manual Muscle Testing diana Flexion (C6) 4 Good Extension (C7) 4 Good PT-OP-Q Treatments Start: 01/14/21 08:36 Freq: Status: Active Protocol: Document 02/04/21 13:03 [facility] (Rec: 02/04/21 13:24 [facility] [id number]) Cardio Equipment Recumbent Stepper (Sci-Fit) Duration (Minutes) 10 Resistance 2 Seat Position 15 Therapeutic Exercises Sitting Exercises row, sh ext Equipment Used L1 TB Reps/Minutes 10x Standing Exercises isometric rotation theraband push Reps/Minutes 5x ea Manual Therapy Treatment Soft Tissue Mobilization lumbar paraspinals, piriformis Mobilization Type Myofascial Release,Rolling, Strumming Intensity/Depth Moderate Body Position Sitting Self-Care/Home Management Treatment Education Patient Education Home Exercise Program,Pain Management,Posture PT-OP-R Modalities Start: 01/14/21 08:36 Freq: Status: Active Protocol: Document 02/04/21 13:03 [facility] (Rec: 02/04/21 13:24 [facility] [id number]) Electric Stimulation Electric Stimulation Interferential Current (IFC) Body Location bilateral lumbar paraspinals Duration (Minutes) 15 Target/Sweep Sweep High/Low High Patient Position Sitting Combined With Heat/Cold Hot Pack Ultrasound Therapy Treatment Back Treatment Duration (minutes) 8 Patient Position Sitting Coupling Medium Ultrasound Gel Frequency Setting (mHz) 1 Mode Setting Continuous Duty Cycle 100% Intensity Setting (w/cm2) 1.4 Comments bilateral lumbar paraspinals PT-OP-T Assessment and Plan Start: 01/14/21 08:36 Freq: Status: Active Protocol: Document 02/04/21 13:03 [facility] (Rec: 02/04/21 13:24 [facility] [id number]) Physical Therapy Assessment Goals range of motion Impairment stiffness throughout patient's trunk and hips Short Term Goal (STG) Instruct in HEP to address soft tissue mobility impairments STG Duration 03/01/21 [facility] Goal (LTG) Patient to demonstrate improvements in overall flexibility throughout trunk and hips and be safe and independent with HEP and aquatic exercise program for long-term fitness and pain management. LTG Duration 04/17/21 Strength Impairment weakness core and hips Short Term Goal (STG) Patient to begin land and aquatic exercise to address impairments in core and hip muscle strength with good tolerance STG Duration 03/01/21 [employer] Goal (LTG) Improve strength to at least 4 +/5 throughout trunk and LE's with patient demonstrating safety and independence with HEP and aquatic exercise program for long-term fitness and pain management. LTG Duration 04/17/21 Pain Impairment Pain level 7/10 diana lumbar spine and 6/10 diana cervical spine Short Term Goal (STG) Decrease pain to no greater than 5/10 09/07/19: goal progress, 6/10 STG Duration 03/01/21 [facility] Goal (LTG) Decrease pain to no greater than 3/10 LTG Duration 04/17/21 Gait Impairment Requires use of walker, unable to walk community distances Short Term Goal (STG) Patient able to walk community distances with FWW with with minimal to no increase in pain. STG Duration 03/01/21 [employer] Goal (LTG) Patient able to ambulate with cane device for short community distances. LTG Duration 04/17/21 Activity tolerance Impairment Oswestry disability index score 48% Short Term Goal (STG) Decrease Oswestry score to no greater than 38% as measure of improved patient tolerance for usual daily activities 09/07/19: 52% STG Duration 03/01/21 [facility] Goal (LTG) Decrease Oswestry score to no greater than 25% as measure of improved activity tolerance LTG Duration 04/17/21 Assessment Summary Assessment Improved speed of gait today with patient reporting improved activity tolerance though also reported after long car ride felt numbness in leg and foot for a short period. Needs moderate cues for posture due to increasing trunk flexion with gait. Physical Therapy Plan Frequency and Duration Frequency of Treatment 2x/Week Duration of Treatment 12 weeks Plan of Care Start Date 01/17/21 Plan of Care End Date 04/17/21 Therapeutic Interventions Therapeutic Interventions Aquatic Therapy,Gait Training, Home Exercise Program,Manual Therapy,Neuromuscular Re- education,Patient/Caregiver Education,Self-Care/Home Management,Soft Tissue Mobilization,Taping, Therapeutic Activities, Therapeutic Exercises Modalities Electric Stimulation,Hot Packs ,Infrared Therapy,Ultrasound Next Visit Focus/Plan Next Note Type Treatment Note Next Visit Plan Continue to progress with gentle strengthening, core stabilization, and flexibility as patient tolerates. Evaluate response to ultrasound and manual therapy in seated position vs. sidelying
--- NOTE | 2021-02-06 17:08 | PT.OTN ---
Current Diagnoses Other chronic pain (02/06/21) Chronic pain syndrome (02/06/21) Radiculopathy, lumbar region (02/06/21) Cervicalgia (02/06/21) Iliotibial band syndrome, right leg (02/06/21) Arthrodesis status (02/06/21) Other specified postprocedural states (02/06/21) Physical Therapy Treatment Note PT-OP-A Visit Information Start: 01/14/21 08:36 Freq: Status: Active Protocol: Document 02/06/21 13:00 SAK (Rec: 02/06/21 13:45 SAK [id number]) Out-Patient Physical Therapy Visit Information Visit Information Visit Type Treatment Note Visit Start Time 13:00 Visit Stop Time 14:00 Total Visit Minutes 60 Visit Number 6 Evaluation Information Evaluation Date 01/17/21 Precautions Precautions history of fusion c/s and l/s with metal. PT-OP-B Current Condition Start: 01/14/21 08:36 Freq: Status: Active Protocol: Document 01/17/21 14:31 SAK (Rec: 01/17/21 16:09 SAK [id number]) Current Condition History of Current Condition Onset Date 1 year Current Complaints worsening LBP and neck pain and weakness arms and legs. History of Current Condition neck and back pain progressisvely worsening with decreased activity tolerance. Unable to golf any longer. Tried to drive to [place] 2018, couldn't make it due to pain. Last year coming back from [place] things deteriorated more. but was able to make it back. Numbness and tingling occasionally in hands. States legs give out occasionally and also spasm; states leg spasm in bed hurt his back a few nights ago. Uses walker to go any distance otherwise uses cane or furniture at home . Not currently doing any exercises, can walk about 75' at a time. Stopped doing aquatic exercise due to pool closure as result of Covid-19 and hasn't restarted. Admits to feeling some depressed/ disappointed. States Dr. Tirado recomended he look at going to assisted living and he plans to check out a few facilities in [place] close to his daughter. Prior Treatments and Tests No recent MRI or x-rays chest x-ray 6 months ago negative, states heart and lungs stable. Saw Dr. Littlejohn and 1 year ago; state nothing can be done Seeing Dr. Tirado: having osteopathic treatments; seems to help a little Treatment Goals Patient/Caregiver Goals Decrease pain, improve activity tolerance and function Prior Functional Status Baseline Function- ADL's Modified Independent Baseline Function- Mobility Modified Independent Baseline Function- Gait independent with device community distances Baseline Function- Work/School retired Baseline Function- Recreation/Hobbies restoring cars, golf Current Functional Impairments (Reported) Functional Limitations- ADL's increased time, more painful Functional Limitations- Mobility/Gait 75' with FWW max Functional Limitations- Recreation/ unable Hobbies PT-OP-C Subjective Start: 01/14/21 08:36 Freq: Status: Active Protocol: Document 02/06/21 13:00 SAK (Rec: 02/06/21 13:45 [facility] [id number]) OP-PT Subjective Patient Comments Patient Comments Kinesiotape took away pain inside and outside of right LE . Walking better, distance still limited. Hasn't made it to the pool yet. PT-OP-G Mobility & Gait Start: 01/14/21 08:36 Freq: Status: Active Protocol: Document 01/17/21 14:31 [facility] (Rec: 01/17/21 16:09 [facility] [id number]) OP Gait Assessment Gait Gait Assistance Required: Independent Distance (Feet) 75 Gait Deviations General Gait Pattern Decreased Stride Length, Decreased Feet Clearance, Flexed Trunk Factors Limiting Gait Function Factors Limiting Gait Function Decreased Activity Tolerance, Decreased Strength,Pain PT-OP-J Posture/Palpation/Skin Start: 01/14/21 08:36 Freq: Status: Active Protocol: Document 01/17/21 14:31 [facility] (Rec: 01/17/21 16:09 [facility] [id number]) Posture Evaluation Position Standing Head/C-Spine Posture Forward Head T-Spine Posture Increased Kyphosis L-Spine Posture Decreased Lordosis Scapula Posture (L) Protracted,(R) Protracted Arm Posture (L) Internally Rotated,(R) Internally Rotated Pelvis Posture (L) Rotated Anterior,(R) Rotated Anterior Hip Posture (L) Flexed,(R) Flexed Knee Posture (L) Excess Flexion,(R) Excess Flexion Ankle/Foot Posture (L) Forefoot Eversion,(R) Forefoot Eversion Palpation Assessment Location bilateral cervical paraspinals, [place] Palpation Findings Soft Tissue Tightness,Muscle Guarding,Tenderness diana lumbar paraspinals Palpation Findings Soft Tissue Tightness,Muscle Guarding,Tenderness Palpation Details tight diana, right greater than left PT-OP-K Range of Motion Start: 01/14/21 08:36 Freq: Status: Active Protocol: Document 01/17/21 14:31 [facility] (Rec: 01/17/21 16:09 [facility] [id number]) Cervical Spine Range of Motion Cervical Spine Active Degrees Testing Position Sitting Flexion 58 Extension 5 Rotation Left 27 Rotation Right 25 Lateral Flexion Left 14 Lateral Flexion Right 17 ROM Limitations Soft Tissue Tightness,Bony Restriction,Pain Lumbar Spine Range of Motion Lumbar Spine Active Degrees Flexion 20 Extension 0 Rotation Left 15 Rotation Right 15 Lateral Flexion Left 25 Lateral Flexion Right 25 Comments -10 deg ext with c/o increased pain Hip Goniometric Range of Motion Hip Left Flexion w/Knee Flexed 105 Straight Leg Raise 45 Internal Rotation 25 External Rotation 70 Right Flexion w/Knee Flexed 110 Straight Leg Raise 45 Internal Rotation 15 External Rotation 20 Hip ROM Limitations Comments -5 diana hip ext PT-OP-L Special Tests Start: 01/14/21 08:36 Freq: Status: Active Protocol: Document 01/17/21 14:31 [facility] (Rec: 01/17/21 16:09 [facility] [id number]) Special Tests Lumbar Spine Special Tests Manual Traction Test Results positive for increasing pain Horacio Test Results positive for hip flexor tightness diana Straight Leg Raise Test Results positive for muscle tightness not radicular pain Compression Test Results positive right Comments pain radiating to right posterior knee Hip Special Tests Piriformis Test Results positive right Scour Test Test Results negative diana PT-OP-M Strength Start: 01/14/21 08:36 Freq: Status: Active Protocol: Document 01/17/21 14:31 [facility] (Rec: 01/17/21 16:09 [facility] [id number]) Cervical Spine Strength Cervical Spine Manual Muscle Testing Flexion (C1-2) 4 Good Extension 4- Good- Rotation Left 4 Good Rotation Right 4 Good Lateral Flexion Left (C3) 4 Good Lateral Flexion Right (C3) 4 Good Trunk Strength Trunk Manual Muscle Testing Flexion 3+ Fair+ Extension 3+ Fair+ Rotation Left 4- Good- Rotation Right 4- Good- Lateral Flexion Left 4- Good- Lateral Flexion Right 4- Good- Shoulder Strength Shoulder Manual Muscle Testing diana Flexion 4 Good Extension 4- Good- External Rotation 4- Good- Internal Rotation 4- Good- Elbow/Forearm Strength Elbow and Forearm Manual Muscle Testing diana Flexion (C6) 4 Good Extension (C7) 4 Good PT-OP-Q Treatments Start: 01/14/21 08:36 Freq: Status: Active Protocol: Document 02/06/21 13:00 [facility] (Rec: 02/06/21 13:45 [facility] [id number]) Cardio Equipment Recumbent Stepper (Sci-Fit) Duration (Minutes) 10 Resistance 2 Seat Position 15 Therapeutic Exercises Sitting Exercises row, sh ext Equipment Used L1 TB Reps/Minutes 10x ea Standing Exercises isometric rotation theraband push Reps/Minutes 8x each side Comments cues for alignment, core stabilization Manual Therapy Treatment Soft Tissue Mobilization lumbar paraspinals, piriformis Mobilization Type Myofascial Release,Rolling, Strumming Intensity/Depth Moderate Body Position Sitting Self-Care/Home Management Treatment Education Patient Education Home Exercise Program,Pain Management,Posture PT-OP-R Modalities Start: 01/14/21 08:36 Freq: Status: Active Protocol: Document 02/06/21 13:00 [facility] (Rec: 02/06/21 13:45 [facility] [id number]) Electric Stimulation Electric Stimulation Interferential Current (IFC) Body Location bilateral lumbar paraspinals Duration (Minutes) 15 Target/Sweep Sweep High/Low High Patient Position Sitting Combined With Heat/Cold Hot Pack Ultrasound Therapy Treatment Back Treatment Duration (minutes) 8 Patient Position Sitting Coupling Medium Ultrasound Gel Frequency Setting (mHz) 1 Mode Setting Continuous Duty Cycle 100% Intensity Setting (w/cm2) 1.4 Comments bilateral lumbar paraspinals PT-OP-T Assessment and Plan Start: 01/14/21 08:36 Freq: Status: Active Protocol: Document 02/06/21 13:00 [facility] (Rec: 02/06/21 13:45 [facility] [id number]) Physical Therapy Assessment Goals range of motion Impairment stiffness throughout patient's trunk and hips Short Term Goal (STG) Instruct in HEP to address soft tissue mobility impairments STG Duration 03/01/21 Alf Goal (LTG) Patient to demonstrate improvements in overall flexibility throughout trunk and hips and be safe and independent with HEP and aquatic exercise program for long-term fitness and pain management. LTG Duration 04/17/21 Strength Impairment weakness core and hips Short Term Goal (STG) Patient to begin land and aquatic exercise to address impairments in core and hip muscle strength with good tolerance STG Duration 03/01/21 Alf Goal (LTG) Improve strength to at least 4 +/5 throughout trunk and LE's with patient demonstrating safety and independence with HEP and aquatic exercise program for long-term fitness and pain management. LTG Duration 04/17/21 Pain Impairment Pain level 7/10 diana lumbar spine and 6/10 diana cervical spine Short Term Goal (STG) Decrease pain to no greater than 5/10 09/07/19: goal progress, 6/10 STG Duration 03/01/21 Alf Goal (LTG) Decrease pain to no greater than 3/10 LTG Duration 04/17/21 Gait Impairment Requires use of walker, unable to walk community distances Short Term Goal (STG) Patient able to walk community distances with FWW with with minimal to no increase in pain. STG Duration 03/01/21 Webmaster Goal (LTG) Patient able to ambulate with cane device for short community distances. LTG Duration 04/17/21 Activity tolerance Impairment Oswestry disability index score 48% Short Term Goal (STG) Decrease Oswestry score to no greater than 38% as measure of improved patient tolerance for usual daily activities 09/07/19: 52% STG Duration 03/01/21 Alf Goal (LTG) Decrease Oswestry score to no greater than 25% as measure of improved activity tolerance LTG Duration 04/17/21 Assessment Summary Assessment Improved LE pain with kinesiotape. Improved gait and ability to straighten spine; typically has been bent forward at approx 45 degrees, today able to extend to approx 20 degrees Physical Therapy Plan Frequency and Duration Frequency of Treatment 2x/Week Duration of Treatment 12 weeks Plan of Care Start Date 01/17/21 Plan of Care End Date 04/17/21 Therapeutic Interventions Therapeutic Interventions Aquatic Therapy,Gait Training, Home Exercise Program,Manual Therapy,Neuromuscular Re- education,Patient/Caregiver Education,Self-Care/Home Management,Soft Tissue Mobilization,Taping, Therapeutic Activities, Therapeutic Exercises Modalities Electric Stimulation,Hot Packs ,Infrared Therapy,Ultrasound Next Visit Focus/Plan Next Note Type Treatment Note Next Visit Plan Add seated crunch and trunk extension with theraband
--- NOTE | 2021-02-20 10:25 | PT-OP ANOTE ---
cancelled due to blew out his knee
--- NOTE | 2021-03-05 17:49 | PT.OTN ---
Current Diagnoses Chronic pain syndrome (03/04/21) Radiculopathy, lumbar region (03/04/21) Cervicalgia (03/04/21) Iliotibial band syndrome, right leg (03/04/21) Arthrodesis status (03/04/21) Other specified postprocedural states (03/04/21) Physical Therapy Treatment Note PT-OP-A Visit Information Start: 01/14/21 08:36 Freq: Status: Active Protocol: Document 03/04/21 13:46 SAK (Rec: 03/04/21 14:33 SAK [id number]) Out-Patient Physical Therapy Visit Information Visit Information Visit Type Treatment Note Visit Start Time 13:46 Visit Stop Time 14:45 Total Visit Minutes 59 Visit Number 7 Evaluation Information Evaluation Date 01/17/21 Precautions Precautions history of fusion c/s and l/s with metal. PT-OP-B Current Condition Start: 01/14/21 08:36 Freq: Status: Active Protocol: Document 01/17/21 14:31 SAK (Rec: 01/17/21 16:09 SAK [id number]) Current Condition History of Current Condition Onset Date 1 year Current Complaints worsening LBP and neck pain and weakness arms and legs. History of Current Condition neck and back pain progressisvely worsening with decreased activity tolerance. Unable to golf any longer. Tried to drive to [place] 2018, couldn't make it due to pain. Last year coming back from [place] things deteriorated more. but was able to make it back. Numbness and tingling occasionally in hands. States legs give out occasionally and also spasm; states leg spasm in bed hurt his back a few nights ago. Uses walker to go any distance otherwise uses cane or furniture at home . Not currently doing any exercises, can walk about 75' at a time. Stopped doing aquatic exercise due to pool closure as result of Covid-19 and hasn't restarted. Admits to feeling some depressed/ disappointed. States Dr. Tirado recomended he look at going to assisted living and he plans to check out a few facilities in [place] close to his daughter. Prior Treatments and Tests No recent MRI or x-rays chest x-ray 6 months ago negative, states heart and lungs stable. Saw Dr. Littlejohn and 1 year ago; state nothing can be done Seeing Dr. Tirado: having osteopathic treatments; seems to help a little Treatment Goals Patient/Caregiver Goals Decrease pain, improve activity tolerance and function Prior Functional Status Baseline Function- ADL's Modified Independent Baseline Function- Mobility Modified Independent Baseline Function- Gait independent with device community distances Baseline Function- Work/School retired Baseline Function- Recreation/Hobbies restoring cars, golf Current Functional Impairments (Reported) Functional Limitations- ADL's increased time, more painful Functional Limitations- Mobility/Gait 75' with FWW max Functional Limitations- Recreation/ unable Hobbies PT-OP-C Subjective Start: 01/14/21 08:36 Freq: Status: Active Protocol: Document 03/04/21 13:46 SAK (Rec: 03/04/21 14:33 [facility] [id number]) OP-PT Subjective Patient Comments Patient Comments States he was walking in bathroom, tripped over step to tub, fell to ground. Had left knee pain after fall, took it easy until x-rays and saw Dr. Cardona. x-rays negative . LBP some worse since injured his knee. States he used kinesiotape on his own, not sure he did as well as PT. Hasn't been to the pool yet due to knee injury. States he dropped 4 medications and his leg isn't giving out as much, now gradually addiing the medications back in. Sees Dr. Tirado tomorrow. PT-OP-G Mobility & Gait Start: 01/14/21 08:36 Freq: Status: Active Protocol: Document 01/17/21 14:31 [facility] (Rec: 01/17/21 16:09 [facility] [id number]) OP Gait Assessment Gait Gait Assistance Required: Independent Distance (Feet) 75 Gait Deviations General Gait Pattern Decreased Stride Length, Decreased Feet Clearance, Flexed Trunk Factors Limiting Gait Function Factors Limiting Gait Function Decreased Activity Tolerance, Decreased Strength,Pain PT-OP-J Posture/Palpation/Skin Start: 01/14/21 08:36 Freq: Status: Active Protocol: Document 01/17/21 14:31 [facility] (Rec: 01/17/21 16:09 [facility] [id number]) Posture Evaluation Position Standing Head/C-Spine Posture Forward Head T-Spine Posture Increased Kyphosis L-Spine Posture Decreased Lordosis Scapula Posture (L) Protracted,(R) Protracted Arm Posture (L) Internally Rotated,(R) Internally Rotated Pelvis Posture (L) Rotated Anterior,(R) Rotated Anterior Hip Posture (L) Flexed,(R) Flexed Knee Posture (L) Excess Flexion,(R) Excess Flexion Ankle/Foot Posture (L) Forefoot Eversion,(R) Forefoot Eversion Palpation Assessment Location bilateral cervical paraspinals, [place] Palpation Findings Soft Tissue Tightness,Muscle Guarding,Tenderness diana lumbar paraspinals Palpation Findings Soft Tissue Tightness,Muscle Guarding,Tenderness Palpation Details tight diana, right greater than left PT-OP-K Range of Motion Start: 01/14/21 08:36 Freq: Status: Active Protocol: Document 01/17/21 14:31 [facility] (Rec: 01/17/21 16:09 [facility] [id number]) Cervical Spine Range of Motion Cervical Spine Active Degrees Testing Position Sitting Flexion 58 Extension 5 Rotation Left 27 Rotation Right 25 Lateral Flexion Left 14 Lateral Flexion Right 17 ROM Limitations Soft Tissue Tightness,Bony Restriction,Pain Lumbar Spine Range of Motion Lumbar Spine Active Degrees Flexion 20 Extension 0 Rotation Left 15 Rotation Right 15 Lateral Flexion Left 25 Lateral Flexion Right 25 Comments -10 deg ext with c/o increased pain Hip Goniometric Range of Motion Hip Left Flexion w/Knee Flexed 105 Straight Leg Raise 45 Internal Rotation 25 External Rotation 70 Right Flexion w/Knee Flexed 110 Straight Leg Raise 45 Internal Rotation 15 External Rotation 20 Hip ROM Limitations Comments -5 diana hip ext PT-OP-L Special Tests Start: 01/14/21 08:36 Freq: Status: Active Protocol: Document 01/17/21 14:31 [facility] (Rec: 01/17/21 16:09 [facility] [id number]) Special Tests Lumbar Spine Special Tests Manual Traction Test Results positive for increasing pain Horacio Test Results positive for hip flexor tightness diana Straight Leg Raise Test Results positive for muscle tightness not radicular pain Compression Test Results positive right Comments pain radiating to right posterior knee Hip Special Tests Piriformis Test Results positive right Scour Test Test Results negative diana PT-OP-M Strength Start: 01/14/21 08:36 Freq: Status: Active Protocol: Document 01/17/21 14:31 [facility] (Rec: 01/17/21 16:09 [facility] [id number]) Cervical Spine Strength Cervical Spine Manual Muscle Testing Flexion (C1-2) 4 Good Extension 4- Good- Rotation Left 4 Good Rotation Right 4 Good Lateral Flexion Left (C3) 4 Good Lateral Flexion Right (C3) 4 Good Trunk Strength Trunk Manual Muscle Testing Flexion 3+ Fair+ Extension 3+ Fair+ Rotation Left 4- Good- Rotation Right 4- Good- Lateral Flexion Left 4- Good- Lateral Flexion Right 4- Good- Shoulder Strength Shoulder Manual Muscle Testing diana Flexion 4 Good Extension 4- Good- External Rotation 4- Good- Internal Rotation 4- Good- Elbow/Forearm Strength Elbow and Forearm Manual Muscle Testing diana Flexion (C6) 4 Good Extension (C7) 4 Good PT-OP-Q Treatments Start: 01/14/21 08:36 Freq: Status: Active Protocol: Document 03/04/21 13:46 [facility] (Rec: 03/04/21 14:33 [facility] [id number]) Cardio Equipment Recumbent Stepper (Sci-Fit) Duration (Minutes) 10 Resistance 1.5 Seat Position 15 Therapeutic Exercises Sitting Exercises row, sh ext Equipment Used L1 TB Reps/Minutes 10x ea Manual Therapy Treatment Soft Tissue Mobilization lumbar paraspinals, piriformis Mobilization Type Myofascial Release,Rolling, Strumming Intensity/Depth Moderate Body Position Sitting PT-OP-R Modalities Start: 01/14/21 08:36 Freq: Status: Active Protocol: Document 02/06/21 13:00 [facility] (Rec: 02/06/21 13:45 [facility] [id number]) Electric Stimulation Electric Stimulation Interferential Current (IFC) Body Location bilateral lumbar paraspinals Duration (Minutes) 15 Target/Sweep Sweep High/Low High Patient Position Sitting Combined With Heat/Cold Hot Pack Ultrasound Therapy Treatment Back Treatment Duration (minutes) 8 Patient Position Sitting Coupling Medium Ultrasound Gel Frequency Setting (mHz) 1 Mode Setting Continuous Duty Cycle 100% Intensity Setting (w/cm2) 1.4 Comments bilateral lumbar paraspinals PT-OP-T Assessment and Plan Start: 01/14/21 08:36 Freq: Status: Active Protocol: Document 03/04/21 13:46 [facility] (Rec: 03/04/21 14:33 [facility] [id number]) Physical Therapy Assessment Goals range of motion Impairment stiffness throughout patient's trunk and hips Short Term Goal (STG) Instruct in HEP to address soft tissue mobility impairments STG Duration 03/01/21 Longterm Goal (LTG) Patient to demonstrate improvements in overall flexibility throughout trunk and hips and be safe and independent with HEP and aquatic exercise program for long-term fitness and pain management. LTG Duration 04/17/21 Strength Impairment weakness core and hips Short Term Goal (STG) Patient to begin land and aquatic exercise to address impairments in core and hip muscle strength with good tolerance STG Duration 03/01/21 Longterm Goal (LTG) Improve strength to at least 4 +/5 throughout trunk and LE's with patient demonstrating safety and independence with HEP and aquatic exercise program for long-term fitness and pain management. LTG Duration 04/17/21 Pain Impairment Pain level 7/10 diana lumbar spine and 6/10 diana cervical spine Short Term Goal (STG) Decrease pain to no greater than 5/10 09/07/19: goal progress, 6/10 STG Duration 03/01/21 Rn Call Center Goal (LTG) Decrease pain to no greater than 3/10 LTG Duration 04/17/21 Gait Impairment Requires use of walker, unable to walk community distances Short Term Goal (STG) Patient able to walk community distances with FWW with with minimal to no increase in pain. STG Duration 03/01/21 Rn Call Center Goal (LTG) Patient able to ambulate with cane device for short community distances. LTG Duration 04/17/21 Activity tolerance Impairment Oswestry disability index score 48% Short Term Goal (STG) Decrease Oswestry score to no greater than 38% as measure of improved patient tolerance for usual daily activities 09/07/19: 52% STG Duration 03/01/21 Longterm Goal (LTG) Decrease Oswestry score to no greater than 25% as measure of improved activity tolerance LTG Duration 04/17/21 Assessment Summary Assessment No increase in pain with treatment, patient lumbar paraspinals with increased tension initially, reduced with manual treatment and IFES with MH. Treatment modified due to recent exacerbation of pain. Physical Therapy Plan Frequency and Duration Frequency of Treatment 2x/Week Duration of Treatment 12 weeks Plan of Care Start Date 01/17/21 Plan of Care End Date 04/17/21 Therapeutic Interventions Therapeutic Interventions Aquatic Therapy,Gait Training, Home Exercise Program,Manual Therapy,Neuromuscular Re- education,Patient/Caregiver Education,Self-Care/Home Management,Soft Tissue Mobilization,Taping, Therapeutic Activities, Therapeutic Exercises Modalities Electric Stimulation,Hot Packs ,Infrared Therapy,Ultrasound
--- NOTE | 2021-03-11 13:58 | PT.OTN ---
Current Diagnoses Chronic pain syndrome (03/11/21) Radiculopathy, lumbar region (03/11/21) Cervicalgia (03/11/21) Iliotibial band syndrome, right leg (03/11/21) Arthrodesis status (03/11/21) Other specified postprocedural states (03/11/21) Physical Therapy Treatment Note PT-OP-A Visit Information Start: 01/14/21 08:36 Freq: Status: Active Protocol: Document 03/11/21 13:08 [facility] (Rec: 03/11/21 13:58 [facility] [id number]) Out-Patient Physical Therapy Visit Information Visit Information Visit Type Treatment Note Visit Start Time 13:02 Visit Stop Time 14:00 Total Visit Minutes 58 Visit Number 8 Evaluation Information Evaluation Date 01/17/21 Precautions Precautions history of fusion c/s and l/s with metal. PT-OP-B Current Condition Start: 01/14/21 08:36 Freq: Status: Active Protocol: Document 01/17/21 14:31 [facility] (Rec: 01/17/21 16:09 [facility] [id number]) Current Condition History of Current Condition Onset Date 1 year Current Complaints worsening LBP and neck pain and weakness arms and legs. History of Current Condition neck and back pain progressisvely worsening with decreased activity tolerance. Unable to golf any longer. Tried to drive to [place] 2018, couldn't make it due to pain. Last year coming back from [place] things deteriorated more. but was able to make it back. Numbness and tingling occasionally in hands. States legs give out occasionally and also spasm; states leg spasm in bed hurt his back a few nights ago. Uses walker to go any distance otherwise uses cane or furniture at home . Not currently doing any exercises, can walk about 75' at a time. Stopped doing aquatic exercise due to pool closure as result of Covid-19 and hasn't restarted. Admits to feeling some depressed/ disappointed. States Dr. Tirado recomended he look at going to assisted living and he plans to check out a few facilities in [place] close to his daughter. Prior Treatments and Tests No recent MRI or x-rays chest x-ray 6 months ago negative, states heart and lungs stable. Saw Dr. Littlejohn and 1 year ago; state nothing can be done Seeing Dr. Tirado: having osteopathic treatments; seems to help a little Treatment Goals Patient/Caregiver Goals Decrease pain, improve activity tolerance and function Prior Functional Status Baseline Function- ADL's Modified Independent Baseline Function- Mobility Modified Independent Baseline Function- Gait independent with device community distances Baseline Function- Work/School retired Baseline Function- Recreation/Hobbies restoring cars, golf Current Functional Impairments (Reported) Functional Limitations- ADL's increased time, more painful Functional Limitations- Mobility/Gait 75' with FWW max Functional Limitations- Recreation/ unable Hobbies PT-OP-C Subjective Start: 01/14/21 08:36 Freq: Status: Active Protocol: Document 03/11/21 13:08 [facility] (Rec: 03/11/21 13:58 [facility] [id number]) OP-PT Subjective Patient Comments Patient Comments Patient reports pain improved immediately after last session . Sees Dr. Montes tomorrow. PT-OP-G Mobility & Gait Start: 01/14/21 08:36 Freq: Status: Active Protocol: Document 01/17/21 14:31 [facility] (Rec: 01/17/21 16:09 [facility] [id number]) OP Gait Assessment Gait Gait Assistance Required: Independent Distance (Feet) 75 Gait Deviations General Gait Pattern Decreased Stride Length, Decreased Feet Clearance, Flexed Trunk Factors Limiting Gait Function Factors Limiting Gait Function Decreased Activity Tolerance, Decreased Strength,Pain PT-OP-J Posture/Palpation/Skin Start: 01/14/21 08:36 Freq: Status: Active Protocol: Document 01/17/21 14:31 [facility] (Rec: 01/17/21 16:09 [facility] [id number]) Posture Evaluation Position Standing Head/C-Spine Posture Forward Head T-Spine Posture Increased Kyphosis L-Spine Posture Decreased Lordosis Scapula Posture (L) Protracted,(R) Protracted Arm Posture (L) Internally Rotated,(R) Internally Rotated Pelvis Posture (L) Rotated Anterior,(R) Rotated Anterior Hip Posture (L) Flexed,(R) Flexed Knee Posture (L) Excess Flexion,(R) Excess Flexion Ankle/Foot Posture (L) Forefoot Eversion,(R) Forefoot Eversion Palpation Assessment Location bilateral cervical paraspinals, [place] Palpation Findings Soft Tissue Tightness,Muscle Guarding,Tenderness diana lumbar paraspinals Palpation Findings Soft Tissue Tightness,Muscle Guarding,Tenderness Palpation Details tight diana, right greater than left PT-OP-K Range of Motion Start: 01/14/21 08:36 Freq: Status: Active Protocol: Document 01/17/21 14:31 [facility] (Rec: 01/17/21 16:09 [facility] [id number]) Cervical Spine Range of Motion Cervical Spine Active Degrees Testing Position Sitting Flexion 58 Extension 5 Rotation Left 27 Rotation Right 25 Lateral Flexion Left 14 Lateral Flexion Right 17 ROM Limitations Soft Tissue Tightness,Bony Restriction,Pain Lumbar Spine Range of Motion Lumbar Spine Active Degrees Flexion 20 Extension 0 Rotation Left 15 Rotation Right 15 Lateral Flexion Left 25 Lateral Flexion Right 25 Comments -10 deg ext with c/o increased pain Hip Goniometric Range of Motion Hip Left Flexion w/Knee Flexed 105 Straight Leg Raise 45 Internal Rotation 25 External Rotation 70 Right Flexion w/Knee Flexed 110 Straight Leg Raise 45 Internal Rotation 15 External Rotation 20 Hip ROM Limitations Comments -5 diana hip ext PT-OP-L Special Tests Start: 01/14/21 08:36 Freq: Status: Active Protocol: Document 01/17/21 14:31 [facility] (Rec: 01/17/21 16:09 [facility] [id number]) Special Tests Lumbar Spine Special Tests Manual Traction Test Results positive for increasing pain Horacio Test Results positive for hip flexor tightness diana Straight Leg Raise Test Results positive for muscle tightness not radicular pain Compression Test Results positive right Comments pain radiating to right posterior knee Hip Special Tests Piriformis Test Results positive right Scour Test Test Results negative diana PT-OP-M Strength Start: 01/14/21 08:36 Freq: Status: Active Protocol: Document 01/17/21 14:31 [facility] (Rec: 01/17/21 16:09 [facility] [id number]) Cervical Spine Strength Cervical Spine Manual Muscle Testing Flexion (C1-2) 4 Good Extension 4- Good- Rotation Left 4 Good Rotation Right 4 Good Lateral Flexion Left (C3) 4 Good Lateral Flexion Right (C3) 4 Good Trunk Strength Trunk Manual Muscle Testing Flexion 3+ Fair+ Extension 3+ Fair+ Rotation Left 4- Good- Rotation Right 4- Good- Lateral Flexion Left 4- Good- Lateral Flexion Right 4- Good- Shoulder Strength Shoulder Manual Muscle Testing diana Flexion 4 Good Extension 4- Good- External Rotation 4- Good- Internal Rotation 4- Good- Elbow/Forearm Strength Elbow and Forearm Manual Muscle Testing diana Flexion (C6) 4 Good Extension (C7) 4 Good PT-OP-Q Treatments Start: 01/14/21 08:36 Freq: Status: Active Protocol: Document 03/11/21 13:08 [facility] (Rec: 03/11/21 13:58 [facility] [id number]) Cardio Equipment Recumbent Stepper (Sci-Fit) Duration (Minutes) 10 Resistance 1.5 Seat Position 15 Therapeutic Exercises Sitting Exercises hip ab/ER Resistance L2 TB Reps/Minutes 10x ball squeeze Reps/Minutes 10x row, sh ext Equipment Used L1 TB Reps/Minutes 10x ea Manual Therapy Treatment Soft Tissue Mobilization lumbar paraspinals, piriformis Mobilization Type Myofascial Release,Rolling, Strumming Intensity/Depth Moderate Body Position Sitting Self-Care/Home Management Treatment Education Patient Education Home Exercise Program,Pain Management,Posture PT-OP-R Modalities Start: 01/14/21 08:36 Freq: Status: Active Protocol: Document 03/11/21 13:08 [facility] (Rec: 03/11/21 13:58 [facility] [id number]) Electric Stimulation Electric Stimulation Interferential Current (IFC) Body Location bilateral lumbar paraspinals Duration (Minutes) 15 Target/Sweep Sweep High/Low High Patient Position Sitting Combined With Heat/Cold Hot Pack Ultrasound Therapy Treatment Back Treatment Duration (minutes) 8 Patient Position Sitting Coupling Medium Ultrasound Gel Frequency Setting (mHz) 1 Mode Setting Continuous Duty Cycle 100% Intensity Setting (w/cm2) 1.4 Comments bilateral lumbar paraspinals PT-OP-T Assessment and Plan Start: 01/14/21 08:36 Freq: Status: Active Protocol: Document 03/11/21 13:08 [facility] (Rec: 03/11/21 13:58 [facility] [id number]) Physical Therapy Assessment Goals range of motion Impairment stiffness throughout patient's trunk and hips Short Term Goal (STG) Instruct in HEP to address soft tissue mobility impairments STG Duration 03/01/21 Skilled Nursing Goal (LTG) Patient to demonstrate improvements in overall flexibility throughout trunk and hips and be safe and independent with HEP and aquatic exercise program for long-term fitness and pain management. LTG Duration 04/17/21 Strength Impairment weakness core and hips Short Term Goal (STG) Patient to begin land and aquatic exercise to address impairments in core and hip muscle strength with good tolerance STG Duration 03/01/21 Chief Security Officer Goal (LTG) Improve strength to at least 4 +/5 throughout trunk and LE's with patient demonstrating safety and independence with HEP and aquatic exercise program for long-term fitness and pain management. LTG Duration 04/17/21 Pain Impairment Pain level 7/10 diana lumbar spine and 6/10 diana cervical spine Short Term Goal (STG) Decrease pain to no greater than 5/10 09/07/19: goal progress, 6/10 STG Duration 03/01/21 Chief Security Officer Goal (LTG) Decrease pain to no greater than 3/10 LTG Duration 04/17/21 Gait Impairment Requires use of walker, unable to walk community distances Short Term Goal (STG) Patient able to walk community distances with FWW with with minimal to no increase in pain. STG Duration 03/01/21 Skilled Nursing Goal (LTG) Patient able to ambulate with cane device for short community distances. LTG Duration 04/17/21 Activity tolerance Impairment Oswestry disability index score 48% Short Term Goal (STG) Decrease Oswestry score to no greater than 38% as measure of improved patient tolerance for usual daily activities 09/07/19: 52% STG Duration 03/01/21 Chief Security Officer Goal (LTG) Decrease Oswestry score to no greater than 25% as measure of improved activity tolerance LTG Duration 04/17/21 Assessment Summary Assessment Patient reporting improved back pain with PT though still didn't feel up to doing theraband ex standing, increased speed of gait noted today. Physical Therapy Plan Frequency and Duration Frequency of Treatment 2x/Week Duration of Treatment 12 weeks Plan of Care Start Date 01/17/21 Plan of Care End Date 04/17/21 Therapeutic Interventions Therapeutic Interventions Aquatic Therapy,Gait Training, Home Exercise Program,Manual Therapy,Neuromuscular Re- education,Patient/Caregiver Education,Self-Care/Home Management,Soft Tissue Mobilization,Taping, Therapeutic Activities, Therapeutic Exercises Modalities Electric Stimulation,Hot Packs ,Infrared Therapy,Ultrasound Next Visit Focus/Plan Next Note Type Treatment Note Next Visit Plan Continue to progress as tolerated.
--- NOTE | 2021-03-19 15:52 | PT.OTN ---
Current Diagnoses Chronic pain syndrome (03/19/21) Radiculopathy, lumbar region (03/19/21) Cervicalgia (03/19/21) Iliotibial band syndrome, right leg (03/19/21) Arthrodesis status (03/19/21) Other specified postprocedural states (03/19/21) Physical Therapy Treatment Note PT-OP-A Visit Information Start: 01/14/21 08:36 Freq: Status: Active Protocol: Document 03/19/21 12:54 [facility] (Rec: 03/19/21 13:51 [facility] [id number]) Out-Patient Physical Therapy Visit Information Visit Information Visit Type Treatment Note Visit Start Time 13:02 Visit Stop Time 14:00 Total Visit Minutes 58 Visit Number 9 Precautions Precautions history of fusion c/s and l/s with metal. PT-OP-B Current Condition Start: 01/14/21 08:36 Freq: Status: Active Protocol: Document 01/17/21 14:31 [facility] (Rec: 01/17/21 16:09 [facility] [id number]) Current Condition History of Current Condition Onset Date 1 year Current Complaints worsening LBP and neck pain and weakness arms and legs. History of Current Condition neck and back pain progressisvely worsening with decreased activity tolerance. Unable to golf any longer. Tried to drive to [place] 2018, couldn't make it due to pain. Last year coming back from [place] things deteriorated more. but was able to make it back. Numbness and tingling occasionally in hands. States legs give out occasionally and also spasm; states leg spasm in bed hurt his back a few nights ago. Uses walker to go any distance otherwise uses cane or furniture at home . Not currently doing any exercises, can walk about 75' at a time. Stopped doing aquatic exercise due to pool closure as result of Covid-19 and hasn't restarted. Admits to feeling some depressed/ disappointed. States Dr. Tirado recomended he look at going to assisted living and he plans to check out a few facilities in [place] close to his daughter. Prior Treatments and Tests No recent MRI or x-rays chest x-ray 6 months ago negative, states heart and lungs stable. Saw Dr. Littlejohn and 1 year ago; state nothing can be done Seeing Dr. Tirado: having osteopathic treatments; seems to help a little Treatment Goals Patient/Caregiver Goals Decrease pain, improve activity tolerance and function Prior Functional Status Baseline Function- ADL's Modified Independent Baseline Function- Mobility Modified Independent Baseline Function- Gait independent with device community distances Baseline Function- Work/School retired Baseline Function- Recreation/Hobbies restoring cars, golf Current Functional Impairments (Reported) Functional Limitations- ADL's increased time, more painful Functional Limitations- Mobility/Gait 75' with FWW max Functional Limitations- Recreation/ unable Hobbies PT-OP-C Subjective Start: 01/14/21 08:36 Freq: Status: Active Protocol: Document 03/19/21 12:54 [facility] (Rec: 03/19/21 13:51 [facility] [id number]) OP-PT Subjective Patient Comments Patient Comments Liked the kinesiotape on his back, the next am was able to walk 50-60 ft with minimal discomfort, felt good. States a big part of the reason he isn't able to straighten up when walking is due to his neck pain. PT-OP-G Mobility & Gait Start: 01/14/21 08:36 Freq: Status: Active Protocol: Document 01/17/21 14:31 [facility] (Rec: 01/17/21 16:09 [facility] [id number]) OP Gait Assessment Gait Gait Assistance Required: Independent Distance (Feet) 75 Gait Deviations General Gait Pattern Decreased Stride Length, Decreased Feet Clearance, Flexed Trunk Factors Limiting Gait Function Factors Limiting Gait Function Decreased Activity Tolerance, Decreased Strength,Pain PT-OP-J Posture/Palpation/Skin Start: 01/14/21 08:36 Freq: Status: Active Protocol: Document 01/17/21 14:31 [facility] (Rec: 01/17/21 16:09 [facility] [id number]) Posture Evaluation Position Standing Head/C-Spine Posture Forward Head T-Spine Posture Increased Kyphosis L-Spine Posture Decreased Lordosis Scapula Posture (L) Protracted,(R) Protracted Arm Posture (L) Internally Rotated,(R) Internally Rotated Pelvis Posture (L) Rotated Anterior,(R) Rotated Anterior Hip Posture (L) Flexed,(R) Flexed Knee Posture (L) Excess Flexion,(R) Excess Flexion Ankle/Foot Posture (L) Forefoot Eversion,(R) Forefoot Eversion Palpation Assessment Location bilateral cervical paraspinals, [place] Palpation Findings Soft Tissue Tightness,Muscle Guarding,Tenderness diana lumbar paraspinals Palpation Findings Soft Tissue Tightness,Muscle Guarding,Tenderness Palpation Details tight diana, right greater than left PT-OP-K Range of Motion Start: 01/14/21 08:36 Freq: Status: Active Protocol: Document 01/17/21 14:31 [facility] (Rec: 01/17/21 16:09 [facility] [id number]) Cervical Spine Range of Motion Cervical Spine Active Degrees Testing Position Sitting Flexion 58 Extension 5 Rotation Left 27 Rotation Right 25 Lateral Flexion Left 14 Lateral Flexion Right 17 ROM Limitations Soft Tissue Tightness,Bony Restriction,Pain Lumbar Spine Range of Motion Lumbar Spine Active Degrees Flexion 20 Extension 0 Rotation Left 15 Rotation Right 15 Lateral Flexion Left 25 Lateral Flexion Right 25 Comments -10 deg ext with c/o increased pain Hip Goniometric Range of Motion Hip Left Flexion w/Knee Flexed 105 Straight Leg Raise 45 Internal Rotation 25 External Rotation 70 Right Flexion w/Knee Flexed 110 Straight Leg Raise 45 Internal Rotation 15 External Rotation 20 Hip ROM Limitations Comments -5 diana hip ext PT-OP-L Special Tests Start: 01/14/21 08:36 Freq: Status: Active Protocol: Document 01/17/21 14:31 [facility] (Rec: 01/17/21 16:09 [facility] [id number]) Special Tests Lumbar Spine Special Tests Manual Traction Test Results positive for increasing pain Horacio Test Results positive for hip flexor tightness diana Straight Leg Raise Test Results positive for muscle tightness not radicular pain Compression Test Results positive right Comments pain radiating to right posterior knee Hip Special Tests Piriformis Test Results positive right Scour Test Test Results negative diana PT-OP-M Strength Start: 01/14/21 08:36 Freq: Status: Active Protocol: Document 01/17/21 14:31 [facility] (Rec: 01/17/21 16:09 [facility] [id number]) Cervical Spine Strength Cervical Spine Manual Muscle Testing Flexion (C1-2) 4 Good Extension 4- Good- Rotation Left 4 Good Rotation Right 4 Good Lateral Flexion Left (C3) 4 Good Lateral Flexion Right (C3) 4 Good Trunk Strength Trunk Manual Muscle Testing Flexion 3+ Fair+ Extension 3+ Fair+ Rotation Left 4- Good- Rotation Right 4- Good- Lateral Flexion Left 4- Good- Lateral Flexion Right 4- Good- Shoulder Strength Shoulder Manual Muscle Testing diana Flexion 4 Good Extension 4- Good- External Rotation 4- Good- Internal Rotation 4- Good- Elbow/Forearm Strength Elbow and Forearm Manual Muscle Testing diana Flexion (C6) 4 Good Extension (C7) 4 Good PT-OP-Q Treatments Start: 01/14/21 08:36 Freq: Status: Active Protocol: Document 03/19/21 12:54 [facility] (Rec: 03/19/21 13:51 [facility] [id number]) Cardio Equipment Recumbent Stepper (Sci-Fit) Duration (Minutes) 10 Resistance 1.7 Seat Position 15 Therapeutic Exercises Sitting Exercises hip ab/ER Resistance L2 TB Reps/Minutes 10x ball squeeze Reps/Minutes 10x gluteal set Reps/Minutes 10x abdominal corseting Reps/Minutes 10x HS stretch Reps/Minutes 2x row, sh ext Equipment Used L1 TB Reps/Minutes 10x ea Manual Therapy Treatment Soft Tissue Mobilization lumbar paraspinals, piriformis Mobilization Type Myofascial Release,Rolling, Strumming Intensity/Depth Moderate Body Position Sitting Self-Care/Home Management Treatment Education Patient Education Home Exercise Program,Pain Management,Posture PT-OP-R Modalities Start: 01/14/21 08:36 Freq: Status: Active Protocol: Document 03/19/21 12:54 [facility] (Rec: 03/19/21 13:51 [facility] [id number]) Electric Stimulation Electric Stimulation Interferential Current (IFC) Body Location bilateral lumbar paraspinals Duration (Minutes) 15 Target/Sweep Sweep High/Low High Patient Position Sitting Combined With Heat/Cold Hot Pack Ultrasound Therapy Treatment Back Treatment Duration (minutes) 8 Patient Position Sitting Coupling Medium Ultrasound Gel Frequency Setting (mHz) 1 Mode Setting Continuous Duty Cycle 100% Intensity Setting (w/cm2) 1.4 Comments bilateral lumbar paraspinals PT-OP-T Assessment and Plan Start: 01/14/21 08:36 Freq: Status: Active Protocol: Document 03/19/21 12:54 [facility] (Rec: 03/19/21 13:51 [facility] [id number]) Physical Therapy Assessment Goals range of motion Impairment stiffness throughout patient's trunk and hips Short Term Goal (STG) Instruct in HEP to address soft tissue mobility impairments STG Duration 03/01/21 Coin Box Inspector Goal (LTG) Patient to demonstrate improvements in overall flexibility throughout trunk and hips and be safe and independent with HEP and aquatic exercise program for long-term fitness and pain management. LTG Duration 04/17/21 Strength Impairment weakness core and hips Short Term Goal (STG) Patient to begin land and aquatic exercise to address impairments in core and hip muscle strength with good tolerance STG Duration 03/01/21 Coin Box Inspector Goal (LTG) Improve strength to at least 4 +/5 throughout trunk and LE's with patient demonstrating safety and independence with HEP and aquatic exercise program for long-term fitness and pain management. LTG Duration 04/17/21 Pain Impairment Pain level 7/10 diana lumbar spine and 6/10 diana cervical spine Short Term Goal (STG) Decrease pain to no greater than 5/10 09/07/19: goal progress, 6/10 STG Duration 03/01/21 Coin Box Inspector Goal (LTG) Decrease pain to no greater than 3/10 LTG Duration 04/17/21 Gait Impairment Requires use of walker, unable to walk community distances Short Term Goal (STG) Patient able to walk community distances with FWW with with minimal to no increase in pain. STG Duration 03/01/21 Coin Box Inspector Goal (LTG) Patient able to ambulate with cane device for short community distances. LTG Duration 04/17/21 Activity tolerance Impairment Oswestry disability index score 48% Short Term Goal (STG) Decrease Oswestry score to no greater than 38% as measure of improved patient tolerance for usual daily activities 09/07/19: 52% STG Duration 03/01/21 Coin Box Inspector Goal (LTG) Decrease Oswestry score to no greater than 25% as measure of improved activity tolerance LTG Duration 04/17/21 Assessment Summary Assessment Able to progress to 1.7 resistance on Sci-Fit, patient reported some decrease in pain with use of kinesiotape to lumbar spine (had to shorten today due to difficulty removing after prior taping) Physical Therapy Plan Frequency and Duration Frequency of Treatment 2x/Week Duration of Treatment 12 weeks Plan of Care Start Date 01/17/21 Plan of Care End Date 04/17/21 Therapeutic Interventions Therapeutic Interventions Aquatic Therapy,Gait Training, Home Exercise Program,Manual Therapy,Neuromuscular Re- education,Patient/Caregiver Education,Self-Care/Home Management,Soft Tissue Mobilization,Taping, Therapeutic Activities, Therapeutic Exercises Modalities Electric Stimulation,Hot Packs ,Infrared Therapy,Ultrasound Next Visit Focus/Plan Next Note Type Treatment Note Next Visit Plan Progress ther ex, closed chain functional activities as tolerated Continue with modalities and manual therapy techniques as indicated for pain.
--- NOTE | 2021-03-21 08:59 | PT.OTN ---
Current Diagnoses Chronic pain syndrome (03/21/21) Radiculopathy, lumbar region (03/21/21) Cervicalgia (03/21/21) Iliotibial band syndrome, right leg (03/21/21) Arthrodesis status (03/21/21) Other specified postprocedural states (03/21/21) Physical Therapy Treatment Note PT-OP-A Visit Information Start: 01/14/21 08:36 Freq: Status: Active Protocol: Document 03/21/21 12:[address] [facility] (Rec: 03/21/21 13:[address] [facility] [id number]) Out-Patient Physical Therapy Visit Information Visit Information Visit Type Treatment Note Visit Start Time 13:00 Visit Stop Time 14:00 Total Visit Minutes 60 Visit Number 10 Precautions Precautions history of fusion c/s and l/s with metal. PT-OP-B Current Condition Start: 01/14/21 08:36 Freq: Status: Active Protocol: Document 01/17/21 14:31 [facility] (Rec: 01/17/21 16:[address] [facility] [id number]) Current Condition History of Current Condition Onset Date 1 year Current Complaints worsening LBP and neck pain and weakness arms and legs. History of Current Condition neck and back pain progressisvely worsening with decreased activity tolerance. Unable to golf any longer. Tried to drive to [place] 2018, couldn't make it due to pain. Last year coming back from [place] things deteriorated more. but was able to make it back. Numbness and tingling occasionally in hands. States legs give out occasionally and also spasm; states leg spasm in bed hurt his back a few nights ago. Uses walker to go any distance otherwise uses cane or furniture at home . Not currently doing any exercises, can walk about 75' at a time. Stopped doing aquatic exercise due to pool closure as result of Covid-19 and hasn't restarted. Admits to feeling some depressed/ disappointed. States Dr. Tirado recomended he look at going to assisted living and he plans to check out a few facilities in [place] close to his daughter. Prior Treatments and Tests No recent MRI or x-rays chest x-ray 6 months ago negative, states heart and lungs stable. Saw Dr. Littlejohn and 1 year ago; state nothing can be done Seeing Dr. Tirado: having osteopathic treatments; seems to help a little Treatment Goals Patient/Caregiver Goals Decrease pain, improve activity tolerance and function Prior Functional Status Baseline Function- ADL's Modified Independent Baseline Function- Mobility Modified Independent Baseline Function- Gait independent with device community distances Baseline Function- Work/School retired Baseline Function- Recreation/Hobbies restoring cars, golf Current Functional Impairments (Reported) Functional Limitations- ADL's increased time, more painful Functional Limitations- Mobility/Gait 75' with FWW max Functional Limitations- Recreation/ unable Hobbies PT-OP-C Subjective Start: 01/14/21 08:36 Freq: Status: Active Protocol: Document 03/21/21 12:[address] [facility] (Rec: 03/21/21 13:[address] [facility] [id number]) OP-PT Subjective Patient Comments Patient Comments Trying to walk without his walker today, feels some better today, thinks tape helpful. Pain increases quickly with walking. PT-OP-G Mobility & Gait Start: 01/14/21 08:36 Freq: Status: Active Protocol: Document 01/17/21 14:[address] [facility] (Rec: 01/17/21 16:[address] [facility] [id number]) OP Gait Assessment Gait Gait Assistance Required: Independent Distance (Feet) 75 Gait Deviations General Gait Pattern Decreased Stride Length, Decreased Feet Clearance, Flexed Trunk Factors Limiting Gait Function Factors Limiting Gait Function Decreased Activity Tolerance, Decreased Strength,Pain PT-OP-J Posture/Palpation/Skin Start: 01/14/21 08:36 Freq: Status: Active Protocol: Document 01/17/21 14:[address] [facility] (Rec: 01/17/21 16:[address] [facility] [id number]) Posture Evaluation Position Standing Head/C-Spine Posture Forward Head T-Spine Posture Increased Kyphosis L-Spine Posture Decreased Lordosis Scapula Posture (L) Protracted,(R) Protracted Arm Posture (L) Internally Rotated,(R) Internally Rotated Pelvis Posture (L) Rotated Anterior,(R) Rotated Anterior Hip Posture (L) Flexed,(R) Flexed Knee Posture (L) Excess Flexion,(R) Excess Flexion Ankle/Foot Posture (L) Forefoot Eversion,(R) Forefoot Eversion Palpation Assessment Location bilateral cervical paraspinals, [place] Palpation Findings Soft Tissue Tightness,Muscle Guarding,Tenderness diana lumbar paraspinals Palpation Findings Soft Tissue Tightness,Muscle Guarding,Tenderness Palpation Details tight diana, right greater than left PT-OP-K Range of Motion Start: 01/14/21 08:36 Freq: Status: Active Protocol: Document 01/17/21 14:31 [facility] (Rec: 01/17/21 16:09 [facility] [id number]) Cervical Spine Range of Motion Cervical Spine Active Degrees Testing Position Sitting Flexion 58 Extension 5 Rotation Left 27 Rotation Right 25 Lateral Flexion Left 14 Lateral Flexion Right 17 ROM Limitations Soft Tissue Tightness,Bony Restriction,Pain Lumbar Spine Range of Motion Lumbar Spine Active Degrees Flexion 20 Extension 0 Rotation Left 15 Rotation Right 15 Lateral Flexion Left 25 Lateral Flexion Right 25 Comments -10 deg ext with c/o increased pain Hip Goniometric Range of Motion Hip Left Flexion w/Knee Flexed 105 Straight Leg Raise 45 Internal Rotation 25 External Rotation 70 Right Flexion w/Knee Flexed 110 Straight Leg Raise 45 Internal Rotation 15 External Rotation 20 Hip ROM Limitations Comments -5 diana hip ext PT-OP-L Special Tests Start: 01/14/21 08:36 Freq: Status: Active Protocol: Document 01/17/21 14:31 [facility] (Rec: 01/17/21 16:09 [facility] [id number]) Special Tests Lumbar Spine Special Tests Manual Traction Test Results positive for increasing pain Hroacio Test Results positive for hip flexor tightness diana Straight Leg Raise Test Results positive for muscle tightness not radicular pain Compression Test Results positive right Comments pain radiating to right posterior knee Hip Special Tests Piriformis Test Results positive right Scour Test Test Results negative diana PT-OP-M Strength Start: 01/14/21 08:36 Freq: Status: Active Protocol: Document 01/17/21 14:31 [facility] (Rec: 01/17/21 16:[address] [facility] [id number]) Cervical Spine Strength Cervical Spine Manual Muscle Testing Flexion (C1-2) 4 Good Extension 4- Good- Rotation Left 4 Good Rotation Right 4 Good Lateral Flexion Left (C3) 4 Good Lateral Flexion Right (C3) 4 Good Trunk Strength Trunk Manual Muscle Testing Flexion 3+ Fair+ Extension 3+ Fair+ Rotation Left 4- Good- Rotation Right 4- Good- Lateral Flexion Left 4- Good- Lateral Flexion Right 4- Good- Shoulder Strength Shoulder Manual Muscle Testing diana Flexion 4 Good Extension 4- Good- External Rotation 4- Good- Internal Rotation 4- Good- Elbow/Forearm Strength Elbow and Forearm Manual Muscle Testing diana Flexion (C6) 4 Good Extension (C7) 4 Good PT-OP-Q Treatments Start: 01/14/21 08:36 Freq: Status: Active Protocol: Document 03/21/21 12:[address] [facility] (Rec: 03/21/21 13:[address] [facility] [id number]) Cardio Equipment Recumbent Stepper (Sci-Fit) Duration (Minutes) 10 Resistance 1.8 Seat Position 15 Other 1.5 miles Therapeutic Exercises Sitting Exercises hip ab/ER Resistance L2 TB Reps/Minutes 10x ball squeeze Reps/Minutes 10x gluteal set Reps/Minutes 10x abdominal corseting Reps/Minutes 10x HS stretch Reps/Minutes 2x row, sh ext Equipment Used L1 TB Reps/Minutes 10x ea Manual Therapy Treatment Soft Tissue Mobilization lumbar paraspinals, piriformis Mobilization Type Myofascial Release,Rolling, Strumming Intensity/Depth Moderate Body Position Sitting Self-Care/Home Management Treatment Education Patient Education Home Exercise Program,Pain Management,Posture PT-OP-R Modalities Start: 01/14/21 08:36 Freq: Status: Active Protocol: Document 03/21/21 12:[address] [facility] (Rec: 03/21/21 13:[address] [facility] [id number]) Electric Stimulation Electric Stimulation Interferential Current (IFC) Body Location bilateral lumbar paraspinals Duration (Minutes) 15 Target/Sweep Sweep High/Low High Patient Position Sitting Combined With Heat/Cold Hot Pack Ultrasound Therapy Treatment Back Treatment Duration (minutes) 8 Patient Position Sitting Coupling Medium Ultrasound Gel Frequency Setting (mHz) 1 Mode Setting Continuous Duty Cycle 100% Intensity Setting (w/cm2) 1.4 Comments bilateral lumbar paraspinals PT-OP-T Assessment and Plan Start: 01/14/21 08:36 Freq: Status: Active Protocol: Document 03/21/21 12:[address] [facility] (Rec: 03/21/21 13:[address] [facility] [id number]) Physical Therapy Assessment Goals range of motion Impairment stiffness throughout patient's trunk and hips Short Term Goal (STG) Instruct in HEP to address soft tissue mobility impairments STG Duration goal met Alf Goal (LTG) Patient to demonstrate improvements in overall flexibility throughout trunk and hips and be safe and independent with HEP and aquatic exercise program for long-term fitness and pain management. 03/21/21: good goal progress LTG Duration 04/17/21 Strength Impairment weakness core and hips Short Term Goal (STG) Patient to begin land and aquatic exercise to address impairments in core and hip muscle strength with good tolerance 03/24/21: goal progress, hasn't started aquatic exercise yet STG Duration 04/02/21 Alf Goal (LTG) Improve strength to at least 4 +/5 throughout trunk and LE's with patient demonstrating safety and independence with HEP and aquatic exercise program for long-term fitness and pain management. 03/21/21: some goal progress LTG Duration 04/17/21 Pain Impairment Pain level 7/10 diana lumbar spine and 6/10 diana cervical spine Short Term Goal (STG) Decrease pain to no greater than 5/10 09/07/19: goal progress, 603/21/21: pain level variable, still up to 8/10 at times, more often recently at 4-5/10 STG Duration 03/01/21 Associate Professor Of Counseling Goal (LTG) Decrease pain to no greater than 3/10 LTG Duration 04/17/21 Gait Impairment Requires use of walker, unable to walk community distances Short Term Goal (STG) Patient able to walk community distances with FWW with with minimal to no increase in pain. 03/21/21: patient ambulated from parking lot to waiting room, then into PT gym without using assistive device. Patient reports it is harder and he feels more pain, but wants to be able to do. Wants to go golfing again. STG Duration 03/01/21 Associate Professor Of Counseling Goal (LTG) Patient able to ambulate with cane device for short community distances 03/21/21: only tolerates very short community distances (ie 100' or less) LTG Duration 04/17/21 Activity tolerance Impairment Oswestry disability index score 48% Short Term Goal (STG) Decrease Oswestry score to no greater than 38% as measure of improved patient tolerance for usual daily activities 09/07/19: 52% 03/21/21: decreased to 44%, goal progress STG Duration 03/01/21 Associate Professor Of Counseling Goal (LTG) Decrease Oswestry score to no greater than 25% as measure of improved activity tolerance LTG Duration 04/17/21 Assessment Summary Assessment Patient has made some progress toward goals with improved gait today, some increase in HEP compliance. Physical Therapy Plan Frequency and Duration Frequency of Treatment 2x/Week Duration of Treatment 12 weeks Plan of Care Start Date 01/17/21 Plan of Care End Date 04/17/21 Therapeutic Interventions Therapeutic Interventions Aquatic Therapy,Gait Training, Home Exercise Program,Manual Therapy,Neuromuscular Re- education,Patient/Caregiver Education,Self-Care/Home Management,Soft Tissue Mobilization,Taping, Therapeutic Activities, Therapeutic Exercises Modalities Electric Stimulation,Hot Packs ,Infrared Therapy,Ultrasound Next Visit Focus/Plan Next Note Type Treatment Note Next Visit Plan Progress ther ex, closed chain functional activities as tolerated Continue with modalities and manual therapy techniques as indicated for pain.
--- NOTE | 2021-03-21 16:00 | PT.OTN ---
Current Diagnoses Chronic pain syndrome (03/21/21) Radiculopathy, lumbar region (03/21/21) Cervicalgia (03/21/21) Iliotibial band syndrome, right leg (03/21/21) Arthrodesis status (03/21/21) Other specified postprocedural states (03/21/21) Physical Therapy Treatment Note PT-OP-A Visit Information Start: 01/14/21 08:36 Freq: Status: Active Protocol: Document 03/21/21 12:55 [facility] (Rec: 03/21/21 13:44 [facility] [id number]) Out-Patient Physical Therapy Visit Information Visit Information Visit Type Treatment Note Visit Start Time 13:00 Visit Stop Time 14:00 Total Visit Minutes 60 Visit Number 10 Precautions Precautions history of fusion c/s and l/s with metal. PT-OP-B Current Condition Start: 01/14/21 08:36 Freq: Status: Active Protocol: Document 01/17/21 14:31 [facility] (Rec: 01/17/21 16:09 [facility] [id number]) Current Condition History of Current Condition Onset Date 1 year Current Complaints worsening LBP and neck pain and weakness arms and legs. History of Current Condition neck and back pain progressisvely worsening with decreased activity tolerance. Unable to golf any longer. Tried to drive to [place] 2018, couldn't make it due to pain. Last year coming back from [place] things deteriorated more. but was able to make it back. Numbness and tingling occasionally in hands. States legs give out occasionally and also spasm; states leg spasm in bed hurt his back a few nights ago. Uses walker to go any distance otherwise uses cane or furniture at home . Not currently doing any exercises, can walk about 75' at a time. Stopped doing aquatic exercise due to pool closure as result of Covid-19 and hasn't restarted. Admits to feeling some depressed/ disappointed. States Dr. Tirado recomended he look at going to assisted living and he plans to check out a few facilities in [place] close to his daughter. Prior Treatments and Tests No recent MRI or x-rays chest x-ray 6 months ago negative, states heart and lungs stable. Saw Dr. Littlejohn and 1 year ago; state nothing can be done Seeing Dr. Tirado: having osteopathic treatments; seems to help a little Treatment Goals Patient/Caregiver Goals Decrease pain, improve activity tolerance and function Prior Functional Status Baseline Function- ADL's Modified Independent Baseline Function- Mobility Modified Independent Baseline Function- Gait independent with device community distances Baseline Function- Work/School retired Baseline Function- Recreation/Hobbies restoring cars, golf Current Functional Impairments (Reported) Functional Limitations- ADL's increased time, more painful Functional Limitations- Mobility/Gait 75' with FWW max Functional Limitations- Recreation/ unable Hobbies PT-OP-C Subjective Start: 01/14/21 08:36 Freq: Status: Active Protocol: Document 03/21/21 12:55 [facility] (Rec: 03/21/21 13:44 [facility] [id number]) OP-PT Subjective Patient Comments Patient Comments Trying to walk without his walker today, feels some better today, thinks tape helpful. Pain increases quickly with walking. PT-OP-G Mobility & Gait Start: 01/14/21 08:36 Freq: Status: Active Protocol: Document 01/17/21 14:31 [facility] (Rec: 01/17/21 16:09 [facility] [id number]) OP Gait Assessment Gait Gait Assistance Required: Independent Distance (Feet) 75 Gait Deviations General Gait Pattern Decreased Stride Length, Decreased Feet Clearance, Flexed Trunk Factors Limiting Gait Function Factors Limiting Gait Function Decreased Activity Tolerance, Decreased Strength,Pain PT-OP-J Posture/Palpation/Skin Start: 01/14/21 08:36 Freq: Status: Active Protocol: Document 01/17/21 14:31 [facility] (Rec: 01/17/21 16:09 [facility] [id number]) Posture Evaluation Position Standing Head/C-Spine Posture Forward Head T-Spine Posture Increased Kyphosis L-Spine Posture Decreased Lordosis Scapula Posture (L) Protracted,(R) Protracted Arm Posture (L) Internally Rotated,(R) Internally Rotated Pelvis Posture (L) Rotated Anterior,(R) Rotated Anterior Hip Posture (L) Flexed,(R) Flexed Knee Posture (L) Excess Flexion,(R) Excess Flexion Ankle/Foot Posture (L) Forefoot Eversion,(R) Forefoot Eversion Palpation Assessment Location bilateral cervical paraspinals, [place] Palpation Findings Soft Tissue Tightness,Muscle Guarding,Tenderness diana lumbar paraspinals Palpation Findings Soft Tissue Tightness,Muscle Guarding,Tenderness Palpation Details tight diana, right greater than left PT-OP-K Range of Motion Start: 01/14/21 08:36 Freq: Status: Active Protocol: Document 01/17/21 14:31 [facility] (Rec: 01/17/21 16:09 [facility] [id number]) Cervical Spine Range of Motion Cervical Spine Active Degrees Testing Position Sitting Flexion 58 Extension 5 Rotation Left 27 Rotation Right 25 Lateral Flexion Left 14 Lateral Flexion Right 17 ROM Limitations Soft Tissue Tightness,Bony Restriction,Pain Lumbar Spine Range of Motion Lumbar Spine Active Degrees Flexion 20 Extension 0 Rotation Left 15 Rotation Right 15 Lateral Flexion Left 25 Lateral Flexion Right 25 Comments -10 deg ext with c/o increased pain Hip Goniometric Range of Motion Hip Left Flexion w/Knee Flexed 105 Straight Leg Raise 45 Internal Rotation 25 External Rotation 70 Right Flexion w/Knee Flexed 110 Straight Leg Raise 45 Internal Rotation 15 External Rotation 20 Hip ROM Limitations Comments -5 diana hip ext PT-OP-L Special Tests Start: 01/14/21 08:36 Freq: Status: Active Protocol: Document 01/17/21 14:31 [facility] (Rec: 01/17/21 16:09 [facility] [id number]) Special Tests Lumbar Spine Special Tests Manual Traction Test Results positive for increasing pain Horacio Test Results positive for hip flexor tightness diana Straight Leg Raise Test Results positive for muscle tightness not radicular pain Compression Test Results positive right Comments pain radiating to right posterior knee Hip Special Tests Piriformis Test Results positive right Scour Test Test Results negative diana PT-OP-M Strength Start: 01/14/21 08:36 Freq: Status: Active Protocol: Document 01/17/21 14:31 [facility] (Rec: 01/17/21 16:09 [facility] [id number]) Cervical Spine Strength Cervical Spine Manual Muscle Testing Flexion (C1-2) 4 Good Extension 4- Good- Rotation Left 4 Good Rotation Right 4 Good Lateral Flexion Left (C3) 4 Good Lateral Flexion Right (C3) 4 Good Trunk Strength Trunk Manual Muscle Testing Flexion 3+ Fair+ Extension 3+ Fair+ Rotation Left 4- Good- Rotation Right 4- Good- Lateral Flexion Left 4- Good- Lateral Flexion Right 4- Good- Shoulder Strength Shoulder Manual Muscle Testing diana Flexion 4 Good Extension 4- Good- External Rotation 4- Good- Internal Rotation 4- Good- Elbow/Forearm Strength Elbow and Forearm Manual Muscle Testing diana Flexion (C6) 4 Good Extension (C7) 4 Good PT-OP-Q Treatments Start: 01/14/21 08:36 Freq: Status: Active Protocol: Document 03/21/21 12:55 [facility] (Rec: 03/21/21 13:44 [facility] [id number]) Cardio Equipment Recumbent Stepper (Sci-Fit) Duration (Minutes) 10 Resistance 1.8 Seat Position 15 Other 1.5 miles Therapeutic Exercises Sitting Exercises hip ab/ER Resistance L2 TB Reps/Minutes 10x ball squeeze Reps/Minutes 10x gluteal set Reps/Minutes 10x abdominal corseting Reps/Minutes 10x HS stretch Reps/Minutes 2x row, sh ext Equipment Used L1 TB Reps/Minutes 10x ea Manual Therapy Treatment Soft Tissue Mobilization lumbar paraspinals, piriformis Mobilization Type Myofascial Release,Rolling, Strumming Intensity/Depth Moderate Body Position Sitting Self-Care/Home Management Treatment Education Patient Education Home Exercise Program,Pain Management,Posture PT-OP-R Modalities Start: 01/14/21 08:36 Freq: Status: Active Protocol: Document 03/21/21 12:55 [facility] (Rec: 03/21/21 13:44 [facility] [id number]) Electric Stimulation Electric Stimulation Interferential Current (IFC) Body Location bilateral lumbar paraspinals Duration (Minutes) 15 Target/Sweep Sweep High/Low High Patient Position Sitting Combined With Heat/Cold Hot Pack Ultrasound Therapy Treatment Back Treatment Duration (minutes) 8 Patient Position Sitting Coupling Medium Ultrasound Gel Frequency Setting (mHz) 1 Mode Setting Continuous Duty Cycle 100% Intensity Setting (w/cm2) 1.4 Comments bilateral lumbar paraspinals PT-OP-T Assessment and Plan Start: 01/14/21 08:36 Freq: Status: Active Protocol: Document 03/21/21 12:55 [facility] (Rec: 03/21/21 13:44 [facility] [id number]) Physical Therapy Assessment Goals range of motion Impairment stiffness throughout patient's trunk and hips Short Term Goal (STG) Instruct in HEP to address soft tissue mobility impairments STG Duration goal met Alf Goal (LTG) Patient to demonstrate improvements in overall flexibility throughout trunk and hips and be safe and independent with HEP and aquatic exercise program for long-term fitness and pain management. 03/21/21: good goal progress LTG Duration 04/17/21 Strength Impairment weakness core and hips Short Term Goal (STG) Patient to begin land and aquatic exercise to address impairments in core and hip muscle strength with good tolerance 03/24/21: goal progress, hasn't started aquatic exercise yet STG Duration 04/02/21 Alf Goal (LTG) Improve strength to at least 4 +/5 throughout trunk and LE's with patient demonstrating safety and independence with HEP and aquatic exercise program for long-term fitness and pain management. 03/21/21: some goal progress LTG Duration 04/17/21 Pain Impairment Pain level 7/10 diana lumbar spine and 6/10 diana cervical spine Short Term Goal (STG) Decrease pain to no greater than 5/10 09/07/19: goal progress, 603/21/21: pain level variable, still up to 8/10 at times, more often recently at 4-5/10 STG Duration 03/01/21 Heating And Cooling Technician Goal (LTG) Decrease pain to no greater than 3/10 LTG Duration 04/17/21 Gait Impairment Requires use of walker, unable to walk community distances Short Term Goal (STG) Patient able to walk community distances with FWW with with minimal to no increase in pain. 03/21/21: patient ambulated from parking lot to waiting room, then into PT gym without using assistive device. Patient reports it is harder and he feels more pain, but wants to be able to do. Wants to go golfing again. STG Duration 03/01/21 Heating And Cooling Technician Goal (LTG) Patient able to ambulate with cane device for short community distances 03/21/21: only tolerates very short community distances (ie 100' or less) LTG Duration 04/17/21 Activity tolerance Impairment Oswestry disability index score 48% Short Term Goal (STG) Decrease Oswestry score to no greater than 38% as measure of improved patient tolerance for usual daily activities 09/07/19: 52% 03/21/21: decreased to 44%, goal progress STG Duration 03/01/21 Heating And Cooling Technician Goal (LTG) Decrease Oswestry score to no greater than 25% as measure of improved activity tolerance LTG Duration 04/17/21 Assessment Summary Assessment Patient has made some progress toward goals with improved gait today, some increase in HEP compliance. Physical Therapy Plan Frequency and Duration Frequency of Treatment 2x/Week Duration of Treatment 12 weeks Plan of Care Start Date 01/17/21 Plan of Care End Date 04/17/21 Therapeutic Interventions Therapeutic Interventions Aquatic Therapy,Gait Training, Home Exercise Program,Manual Therapy,Neuromuscular Re- education,Patient/Caregiver Education,Self-Care/Home Management,Soft Tissue Mobilization,Taping, Therapeutic Activities, Therapeutic Exercises Modalities Electric Stimulation,Hot Packs ,Infrared Therapy,Ultrasound Next Visit Focus/Plan Next Note Type Treatment Note Next Visit Plan Progress ther ex, closed chain functional activities as tolerated Continue with modalities and manual therapy techniques as indicated for pain.
--- NOTE | 2021-03-25 08:59 | PT.OTN ---
Current Diagnoses Chronic pain syndrome (03/21/21) Radiculopathy, lumbar region (03/21/21) Cervicalgia (03/21/21) Iliotibial band syndrome, right leg (03/21/21) Arthrodesis status (03/21/21) Other specified postprocedural states (03/21/21) Physical Therapy Treatment Note PT-OP-A Visit Information Start: 01/14/21 08:36 Freq: Status: Active Protocol: Document 03/21/21 12:55 [facility] (Rec: 03/21/21 13:44 [facility] [id number]) Out-Patient Physical Therapy Visit Information Visit Information Visit Type Treatment Note Visit Start Time 13:00 Visit Stop Time 14:00 Total Visit Minutes 60 Visit Number 10 Precautions Precautions history of fusion c/s and l/s with metal. PT-OP-B Current Condition Start: 01/14/21 08:36 Freq: Status: Active Protocol: Document 01/17/21 14:31 [facility] (Rec: 01/17/21 16:09 [facility] [id number]) Current Condition History of Current Condition Onset Date 1 year Current Complaints worsening LBP and neck pain and weakness arms and legs. History of Current Condition neck and back pain progressisvely worsening with decreased activity tolerance. Unable to golf any longer. Tried to drive to [place] 2018, couldn't make it due to pain. Last year coming back from [place] things deteriorated more. but was able to make it back. Numbness and tingling occasionally in hands. States legs give out occasionally and also spasm; states leg spasm in bed hurt his back a few nights ago. Uses walker to go any distance otherwise uses cane or furniture at home . Not currently doing any exercises, can walk about 75' at a time. Stopped doing aquatic exercise due to pool closure as result of Covid-19 and hasn't restarted. Admits to feeling some depressed/ disappointed. States Dr. Tirado recomended he look at going to assisted living and he plans to check out a few facilities in [place] close to his daughter. Prior Treatments and Tests No recent MRI or x-rays chest x-ray 6 months ago negative, states heart and lungs stable. Saw Dr. Littlejohn and 1 year ago; state nothing can be done Seeing Dr. Tirado: having osteopathic treatments; seems to help a little Treatment Goals Patient/Caregiver Goals Decrease pain, improve activity tolerance and function Prior Functional Status Baseline Function- ADL's Modified Independent Baseline Function- Mobility Modified Independent Baseline Function- Gait independent with device community distances Baseline Function- Work/School retired Baseline Function- Recreation/Hobbies restoring cars, golf Current Functional Impairments (Reported) Functional Limitations- ADL's increased time, more painful Functional Limitations- Mobility/Gait 75' with FWW max Functional Limitations- Recreation/ unable Hobbies PT-OP-C Subjective Start: 01/14/21 08:36 Freq: Status: Active Protocol: Document 03/21/21 12:55 [facility] (Rec: 03/21/21 13:44 [facility] [id number]) OP-PT Subjective Patient Comments Patient Comments Trying to walk without his walker today, feels some better today, thinks tape helpful. Pain increases quickly with walking. PT-OP-G Mobility & Gait Start: 01/14/21 08:36 Freq: Status: Active Protocol: Document 01/17/21 14:31 [facility] (Rec: 01/17/21 16:09 [facility] [id number]) OP Gait Assessment Gait Gait Assistance Required: Independent Distance (Feet) 75 Gait Deviations General Gait Pattern Decreased Stride Length, Decreased Feet Clearance, Flexed Trunk Factors Limiting Gait Function Factors Limiting Gait Function Decreased Activity Tolerance, Decreased Strength,Pain PT-OP-J Posture/Palpation/Skin Start: 01/14/21 08:36 Freq: Status: Active Protocol: Document 01/17/21 14:31 [facility] (Rec: 01/17/21 16:09 [facility] [id number]) Posture Evaluation Position Standing Head/C-Spine Posture Forward Head T-Spine Posture Increased Kyphosis L-Spine Posture Decreased Lordosis Scapula Posture (L) Protracted,(R) Protracted Arm Posture (L) Internally Rotated,(R) Internally Rotated Pelvis Posture (L) Rotated Anterior,(R) Rotated Anterior Hip Posture (L) Flexed,(R) Flexed Knee Posture (L) Excess Flexion,(R) Excess Flexion Ankle/Foot Posture (L) Forefoot Eversion,(R) Forefoot Eversion Palpation Assessment Location bilateral cervical paraspinals, [place] Palpation Findings Soft Tissue Tightness,Muscle Guarding,Tenderness diana lumbar paraspinals Palpation Findings Soft Tissue Tightness,Muscle Guarding,Tenderness Palpation Details tight diana, right greater than left PT-OP-K Range of Motion Start: 01/14/21 08:36 Freq: Status: Active Protocol: Document 01/17/21 14:31 [facility] (Rec: 01/17/21 16:09 [facility] [id number]) Cervical Spine Range of Motion Cervical Spine Active Degrees Testing Position Sitting Flexion 58 Extension 5 Rotation Left 27 Rotation Right 25 Lateral Flexion Left 14 Lateral Flexion Right 17 ROM Limitations Soft Tissue Tightness,Bony Restriction,Pain Lumbar Spine Range of Motion Lumbar Spine Active Degrees Flexion 20 Extension 0 Rotation Left 15 Rotation Right 15 Lateral Flexion Left 25 Lateral Flexion Right 25 Comments -10 deg ext with c/o increased pain Hip Goniometric Range of Motion Hip Left Flexion w/Knee Flexed 105 Straight Leg Raise 45 Internal Rotation 25 External Rotation 70 Right Flexion w/Knee Flexed 110 Straight Leg Raise 45 Internal Rotation 15 External Rotation 20 Hip ROM Limitations Comments -5 diana hip ext PT-OP-L Special Tests Start: 01/14/21 08:36 Freq: Status: Active Protocol: Document 01/17/21 14:31 [facility] (Rec: 01/17/21 16:09 [facility] [id number]) Special Tests Lumbar Spine Special Tests Manual Traction Test Results positive for increasing pain Horacio Test Results positive for hip flexor tightness diana Straight Leg Raise Test Results positive for muscle tightness not radicular pain Compression Test Results positive right Comments pain radiating to right posterior knee Hip Special Tests Piriformis Test Results positive right Scour Test Test Results negative diana PT-OP-M Strength Start: 01/14/21 08:36 Freq: Status: Active Protocol: Document 01/17/21 14:31 [facility] (Rec: 01/17/21 16:09 [facility] [id number]) Cervical Spine Strength Cervical Spine Manual Muscle Testing Flexion (C1-2) 4 Good Extension 4- Good- Rotation Left 4 Good Rotation Right 4 Good Lateral Flexion Left (C3) 4 Good Lateral Flexion Right (C3) 4 Good Trunk Strength Trunk Manual Muscle Testing Flexion 3+ Fair+ Extension 3+ Fair+ Rotation Left 4- Good- Rotation Right 4- Good- Lateral Flexion Left 4- Good- Lateral Flexion Right 4- Good- Shoulder Strength Shoulder Manual Muscle Testing diana Flexion 4 Good Extension 4- Good- External Rotation 4- Good- Internal Rotation 4- Good- Elbow/Forearm Strength Elbow and Forearm Manual Muscle Testing diana Flexion (C6) 4 Good Extension (C7) 4 Good PT-OP-Q Treatments Start: 01/14/21 08:36 Freq: Status: Active Protocol: Document 03/21/21 12:55 [facility] (Rec: 03/21/21 13:44 [facility] [id number]) Cardio Equipment Recumbent Stepper (Sci-Fit) Duration (Minutes) 10 Resistance 1.8 Seat Position 15 Other 1.5 miles Therapeutic Exercises Sitting Exercises hip ab/ER Resistance L2 TB Reps/Minutes 10x ball squeeze Reps/Minutes 10x gluteal set Reps/Minutes 10x abdominal corseting Reps/Minutes 10x HS stretch Reps/Minutes 2x row, sh ext Equipment Used L1 TB Reps/Minutes 10x ea Manual Therapy Treatment Soft Tissue Mobilization lumbar paraspinals, piriformis Mobilization Type Myofascial Release,Rolling, Strumming Intensity/Depth Moderate Body Position Sitting Self-Care/Home Management Treatment Education Patient Education Home Exercise Program,Pain Management,Posture PT-OP-R Modalities Start: 01/14/21 08:36 Freq: Status: Active Protocol: Document 03/21/21 12:55 [facility] (Rec: 03/21/21 13:44 [facility] [id number]) Electric Stimulation Electric Stimulation Interferential Current (IFC) Body Location bilateral lumbar paraspinals Duration (Minutes) 15 Target/Sweep Sweep High/Low High Patient Position Sitting Combined With Heat/Cold Hot Pack Ultrasound Therapy Treatment Back Treatment Duration (minutes) 8 Patient Position Sitting Coupling Medium Ultrasound Gel Frequency Setting (mHz) 1 Mode Setting Continuous Duty Cycle 100% Intensity Setting (w/cm2) 1.4 Comments bilateral lumbar paraspinals PT-OP-T Assessment and Plan Start: 01/14/21 08:36 Freq: Status: Active Protocol: Document 03/21/21 12:55 [facility] (Rec: 03/21/21 13:44 [facility] [id number]) Physical Therapy Assessment Goals range of motion Impairment stiffness throughout patient's trunk and hips Short Term Goal (STG) Instruct in HEP to address soft tissue mobility impairments STG Duration goal met Detention Goal (LTG) Patient to demonstrate improvements in overall flexibility throughout trunk and hips and be safe and independent with HEP and aquatic exercise program for long-term fitness and pain management. 03/21/21: good goal progress LTG Duration 04/17/21 Strength Impairment weakness core and hips Short Term Goal (STG) Patient to begin land and aquatic exercise to address impairments in core and hip muscle strength with good tolerance 03/24/21: goal progress, hasn't started aquatic exercise yet STG Duration 04/02/21 Detention Goal (LTG) Improve strength to at least 4 +/5 throughout trunk and LE's with patient demonstrating safety and independence with HEP and aquatic exercise program for long-term fitness and pain management. 03/21/21: some goal progress LTG Duration 04/17/21 Pain Impairment Pain level 7/10 diana lumbar spine and 6/10 diana cervical spine Short Term Goal (STG) Decrease pain to no greater than 5/10 09/07/19: goal progress, 603/21/21: pain level variable, still up to 8/10 at times, more often recently at 4-5/10 STG Duration 03/01/21 Industrial Equipment Mechanic Goal (LTG) Decrease pain to no greater than 3/10 LTG Duration 04/17/21 Gait Impairment Requires use of walker, unable to walk community distances Short Term Goal (STG) Patient able to walk community distances with FWW with with minimal to no increase in pain. 03/21/21: patient ambulated from parking lot to waiting room, then into PT gym without using assistive device. Patient reports it is harder and he feels more pain, but wants to be able to do. Wants to go golfing again. STG Duration 03/01/21 Industrial Equipment Mechanic Goal (LTG) Patient able to ambulate with cane device for short community distances 03/21/21: only tolerates very short community distances (ie 100' or less) LTG Duration 04/17/21 Activity tolerance Impairment Oswestry disability index score 48% Short Term Goal (STG) Decrease Oswestry score to no greater than 38% as measure of improved patient tolerance for usual daily activities 09/07/19: 52% 03/21/21: decreased to 44%, goal progress STG Duration 03/01/21 Industrial Equipment Mechanic Goal (LTG) Decrease Oswestry score to no greater than 25% as measure of improved activity tolerance LTG Duration 04/17/21 Assessment Summary Assessment Patient has made some progress toward goals with improved gait today, some increase in HEP compliance. Physical Therapy Plan Frequency and Duration Frequency of Treatment 2x/Week Duration of Treatment 12 weeks Plan of Care Start Date 01/17/21 Plan of Care End Date 04/17/21 Therapeutic Interventions Therapeutic Interventions Aquatic Therapy,Gait Training, Home Exercise Program,Manual Therapy,Neuromuscular Re- education,Patient/Caregiver Education,Self-Care/Home Management,Soft Tissue Mobilization,Taping, Therapeutic Activities, Therapeutic Exercises Modalities Electric Stimulation,Hot Packs ,Infrared Therapy,Ultrasound Next Visit Focus/Plan Next Note Type Treatment Note Next Visit Plan Progress ther ex, closed chain functional activities as tolerated Continue with modalities and manual therapy techniques as indicated for pain.
--- NOTE | 2021-03-26 12:13 | PT.OTN ---
Current Diagnoses Chronic pain syndrome (03/26/21) Radiculopathy, lumbar region (03/26/21) Cervicalgia (03/26/21) Iliotibial band syndrome, right leg (03/26/21) Arthrodesis status (03/26/21) Other specified postprocedural states (03/26/21) Physical Therapy Treatment Note PT-OP-A Visit Information Start: 01/14/21 08:36 Freq: Status: Active Protocol: Document 03/26/21 11:20 [facility] (Rec: 03/26/21 12:13 [facility] [id number]) Out-Patient Physical Therapy Visit Information Visit Information Visit Type Treatment Note Visit Start Time 11:15 Visit Stop Time 12:15 Total Visit Minutes 60 Visit Number 11 Precautions Precautions history of fusion c/s and l/s with metal. PT-OP-B Current Condition Start: 01/14/21 08:36 Freq: Status: Active Protocol: Document 01/17/21 14:31 [facility] (Rec: 01/17/21 16:09 [facility] [id number]) Current Condition History of Current Condition Onset Date 1 year Current Complaints worsening LBP and neck pain and weakness arms and legs. History of Current Condition neck and back pain progressisvely worsening with decreased activity tolerance. Unable to golf any longer. Tried to drive to [place] 2018, couldn't make it due to pain. Last year coming back from [place] things deteriorated more. but was able to make it back. Numbness and tingling occasionally in hands. States legs give out occasionally and also spasm; states leg spasm in bed hurt his back a few nights ago. Uses walker to go any distance otherwise uses cane or furniture at home . Not currently doing any exercises, can walk about 75' at a time. Stopped doing aquatic exercise due to pool closure as result of Covid-19 and hasn't restarted. Admits to feeling some depressed/ disappointed. States Dr. Tirado recomended he look at going to assisted living and he plans to check out a few facilities in [place] close to his daughter. Prior Treatments and Tests No recent MRI or x-rays chest x-ray 6 months ago negative, states heart and lungs stable. Saw Dr. Littlejohn and 1 year ago; state nothing can be done Seeing Dr. Tirado: having osteopathic treatments; seems to help a little Treatment Goals Patient/Caregiver Goals Decrease pain, improve activity tolerance and function Prior Functional Status Baseline Function- ADL's Modified Independent Baseline Function- Mobility Modified Independent Baseline Function- Gait independent with device community distances Baseline Function- Work/School retired Baseline Function- Recreation/Hobbies restoring cars, golf Current Functional Impairments (Reported) Functional Limitations- ADL's increased time, more painful Functional Limitations- Mobility/Gait 75' with FWW max Functional Limitations- Recreation/ unable Hobbies PT-OP-C Subjective Start: 01/14/21 08:36 Freq: Status: Active Protocol: Document 03/26/21 11:20 [facility] (Rec: 03/26/21 12:13 [facility] [id number]) OP-PT Subjective Patient Comments Patient Comments Played some golf on Thursday, has to sit frequently to due back pain when stands longer than hitting 3 balls. States he warmed up prior to playing as previously instructed. PT-OP-G Mobility & Gait Start: 01/14/21 08:36 Freq: Status: Active Protocol: Document 01/17/21 14:31 [facility] (Rec: 01/17/21 16:09 [facility] [id number]) OP Gait Assessment Gait Gait Assistance Required: Independent Distance (Feet) 75 Gait Deviations General Gait Pattern Decreased Stride Length, Decreased Feet Clearance, Flexed Trunk Factors Limiting Gait Function Factors Limiting Gait Function Decreased Activity Tolerance, Decreased Strength,Pain PT-OP-J Posture/Palpation/Skin Start: 01/14/21 08:36 Freq: Status: Active Protocol: Document 01/17/21 14:31 [facility] (Rec: 01/17/21 16:09 [facility] [id number]) Posture Evaluation Position Standing Head/C-Spine Posture Forward Head T-Spine Posture Increased Kyphosis L-Spine Posture Decreased Lordosis Scapula Posture (L) Protracted,(R) Protracted Arm Posture (L) Internally Rotated,(R) Internally Rotated Pelvis Posture (L) Rotated Anterior,(R) Rotated Anterior Hip Posture (L) Flexed,(R) Flexed Knee Posture (L) Excess Flexion,(R) Excess Flexion Ankle/Foot Posture (L) Forefoot Eversion,(R) Forefoot Eversion Palpation Assessment Location bilateral cervical paraspinals, [place] Palpation Findings Soft Tissue Tightness,Muscle Guarding,Tenderness diana lumbar paraspinals Palpation Findings Soft Tissue Tightness,Muscle Guarding,Tenderness Palpation Details tight diana, right greater than left PT-OP-K Range of Motion Start: 01/14/21 08:36 Freq: Status: Active Protocol: Document 01/17/21 14:31 [facility] (Rec: 01/17/21 16:09 [facility] [id number]) Cervical Spine Range of Motion Cervical Spine Active Degrees Testing Position Sitting Flexion 58 Extension 5 Rotation Left 27 Rotation Right 25 Lateral Flexion Left 14 Lateral Flexion Right 17 ROM Limitations Soft Tissue Tightness,Bony Restriction,Pain Lumbar Spine Range of Motion Lumbar Spine Active Degrees Flexion 20 Extension 0 Rotation Left 15 Rotation Right 15 Lateral Flexion Left 25 Lateral Flexion Right 25 Comments -10 deg ext with c/o increased pain Hip Goniometric Range of Motion Hip Left Flexion w/Knee Flexed 105 Straight Leg Raise 45 Internal Rotation 25 External Rotation 70 Right Flexion w/Knee Flexed 110 Straight Leg Raise 45 Internal Rotation 15 External Rotation 20 Hip ROM Limitations Comments -5 diana hip ext PT-OP-L Special Tests Start: 01/14/21 08:36 Freq: Status: Active Protocol: Document 01/17/21 14:31 [facility] (Rec: 01/17/21 16:09 [facility] [id number]) Special Tests Lumbar Spine Special Tests Manual Traction Test Results positive for increasing pain Horacio Test Results positive for hip flexor tightness diana Straight Leg Raise Test Results positive for muscle tightness not radicular pain Compression Test Results positive right Comments pain radiating to right posterior knee Hip Special Tests Piriformis Test Results positive right Scour Test Test Results negative diana PT-OP-M Strength Start: 01/14/21 08:36 Freq: Status: Active Protocol: Document 01/17/21 14:31 [facility] (Rec: 01/17/21 16:09 [facility] [id number]) Cervical Spine Strength Cervical Spine Manual Muscle Testing Flexion (C1-2) 4 Good Extension 4- Good- Rotation Left 4 Good Rotation Right 4 Good Lateral Flexion Left (C3) 4 Good Lateral Flexion Right (C3) 4 Good Trunk Strength Trunk Manual Muscle Testing Flexion 3+ Fair+ Extension 3+ Fair+ Rotation Left 4- Good- Rotation Right 4- Good- Lateral Flexion Left 4- Good- Lateral Flexion Right 4- Good- Shoulder Strength Shoulder Manual Muscle Testing diana Flexion 4 Good Extension 4- Good- External Rotation 4- Good- Internal Rotation 4- Good- Elbow/Forearm Strength Elbow and Forearm Manual Muscle Testing diana Flexion (C6) 4 Good Extension (C7) 4 Good PT-OP-Q Treatments Start: 01/14/21 08:36 Freq: Status: Active Protocol: Document 03/26/21 11:20 [facility] (Rec: 03/26/21 12:13 [facility] [id number]) Cardio Equipment Recumbent Stepper (Sci-Fit) Duration (Minutes) 10 Resistance 1.8 Seat Position 15 Other 1.5 miles Manual Therapy Treatment Soft Tissue Mobilization lumbar paraspinals, piriformis Mobilization Type Myofascial Release,Rolling, Strumming Intensity/Depth Moderate Body Position Sitting Self-Care/Home Management Treatment Education Patient Education Home Exercise Program,Pain Management,Posture PT-OP-R Modalities Start: 01/14/21 08:36 Freq: Status: Active Protocol: Document 03/26/21 11:20 [facility] (Rec: 03/26/21 12:13 [facility] [id number]) Electric Stimulation Electric Stimulation Interferential Current (IFC) Body Location bilateral lumbar paraspinals Duration (Minutes) 15 Target/Sweep Sweep High/Low High Patient Position Sitting Combined With Heat/Cold Hot Pack Ultrasound Therapy Treatment Back Treatment Duration (minutes) 8 Patient Position Sitting Coupling Medium Ultrasound Gel Frequency Setting (mHz) 1 Mode Setting Continuous Duty Cycle 100% Intensity Setting (w/cm2) 1.4 Comments bilateral lumbar paraspinals PT-OP-T Assessment and Plan Start: 01/14/21 08:36 Freq: Status: Active Protocol: Document 03/26/21 11:20 [facility] (Rec: 03/26/21 12:13 [facility] [id number]) Physical Therapy Assessment Goals range of motion Impairment stiffness throughout patient's trunk and hips Short Term Goal (STG) Instruct in HEP to address soft tissue mobility impairments STG Duration goal met Group Home Goal (LTG) Patient to demonstrate improvements in overall flexibility throughout trunk and hips and be safe and independent with HEP and aquatic exercise program for long-term fitness and pain management. 03/21/21: good goal progress LTG Duration 04/17/21 Strength Impairment weakness core and hips Short Term Goal (STG) Patient to begin land and aquatic exercise to address impairments in core and hip muscle strength with good tolerance 03/24/21: goal progress, hasn't started aquatic exercise yet STG Duration 04/02/21 Irrigator Sprinkling System Goal (LTG) Improve strength to at least 4 +/5 throughout trunk and LE's with patient demonstrating safety and independence with HEP and aquatic exercise program for long-term fitness and pain management. 03/21/21: some goal progress LTG Duration 04/17/21 Pain Impairment Pain level 7/10 diana lumbar spine and 6/10 diana cervical spine Short Term Goal (STG) Decrease pain to no greater than 5/10 09/07/19: goal progress, 6/10 03/21/21: pain level variable, still up to 8/10 at times, more often recently at 4-5/10 STG Duration 03/01/21 Group Home Goal (LTG) Decrease pain to no greater than 3/10 LTG Duration 04/17/21 Gait Impairment Requires use of walker, unable to walk community distances Short Term Goal (STG) Patient able to walk community distances with FWW with with minimal to no increase in pain. 03/21/21: patient ambulated from parking lot to waiting room, then into PT gym without using assistive device. Patient reports it is harder and he feels more pain, but wants to be able to do. Wants to go golfing again. STG Duration 03/01/21 Group Home Goal (LTG) Patient able to ambulate with cane device for short community distances 03/21/21: only tolerates very short community distances (ie 100' or less) LTG Duration 04/17/21 Activity tolerance Impairment Oswestry disability index score 48% Short Term Goal (STG) Decrease Oswestry score to no greater than 38% as measure of improved patient tolerance for usual daily activities 09/07/19: 52% 03/21/21: decreased to 44%, goal progress STG Duration 03/01/21 Irrigator Sprinkling System Goal (LTG) Decrease Oswestry score to no greater than 25% as measure of improved activity tolerance LTG Duration 04/17/21 Assessment Summary Assessment Patient able to play golf using cart with no increase in pain, not hitting hard, needing to sit between due to poor tolernace for standing. Physical Therapy Plan Frequency and Duration Frequency of Treatment 2x/Week Duration of Treatment 12 weeks Plan of Care Start Date 01/17/21 Plan of Care End Date 04/17/21 Therapeutic Interventions Therapeutic Interventions Aquatic Therapy,Gait Training, Home Exercise Program,Manual Therapy,Neuromuscular Re- education,Patient/Caregiver Education,Self-Care/Home Management,Soft Tissue Mobilization,Taping, Therapeutic Activities, Therapeutic Exercises Modalities Electric Stimulation,Hot Packs ,Infrared Therapy,Ultrasound Next Visit Focus/Plan Next Note Type Treatment Note Next Visit Plan Continue PT for pain management, ther ex as tolerated. Work toward increased standing tolerance.
--- NOTE | 2021-04-03 16:15 | PT.OTN ---
Current Diagnoses Chronic pain syndrome (04/03/21) Radiculopathy, lumbar region (04/03/21) Cervicalgia (04/03/21) Iliotibial band syndrome, right leg (04/03/21) Arthrodesis status (04/03/21) Other specified postprocedural states (04/03/21) Physical Therapy Treatment Note PT-OP-A Visit Information Start: 01/14/21 08:36 Freq: Status: Active Protocol: Document 04/03/21 15:24 [facility] (Rec: 04/03/21 16:15 [facility] [id number]) Out-Patient Physical Therapy Visit Information Visit Information Visit Type Treatment Note Visit Start Time 15:20 Visit Stop Time 16:20 Total Visit Minutes 60 Visit Number 12 Precautions Precautions history of fusion c/s and l/s with metal. PT-OP-B Current Condition Start: 01/14/21 08:36 Freq: Status: Active Protocol: Document 01/17/21 14:31 [facility] (Rec: 01/17/21 16:09 [facility] [id number]) Current Condition History of Current Condition Onset Date 1 year Current Complaints worsening LBP and neck pain and weakness arms and legs. History of Current Condition neck and back pain progressisvely worsening with decreased activity tolerance. Unable to golf any longer. Tried to drive to [place] 2018, couldn't make it due to pain. Last year coming back from [place] things deteriorated more. but was able to make it back. Numbness and tingling occasionally in hands. States legs give out occasionally and also spasm; states leg spasm in bed hurt his back a few nights ago. Uses walker to go any distance otherwise uses cane or furniture at home . Not currently doing any exercises, can walk about 75' at a time. Stopped doing aquatic exercise due to pool closure as result of Covid-19 and hasn't restarted. Admits to feeling some depressed/ disappointed. States Dr. Tirado recomended he look at going to assisted living and he plans to check out a few facilities in [place] close to his daughter. Prior Treatments and Tests No recent MRI or x-rays chest x-ray 6 months ago negative, states heart and lungs stable. Saw Dr. Littlejohn and 1 year ago; state nothing can be done Seeing Dr. Tirado: having osteopathic treatments; seems to help a little Treatment Goals Patient/Caregiver Goals Decrease pain, improve activity tolerance and function Prior Functional Status Baseline Function- ADL's Modified Independent Baseline Function- Mobility Modified Independent Baseline Function- Gait independent with device community distances Baseline Function- Work/School retired Baseline Function- Recreation/Hobbies restoring cars, golf Current Functional Impairments (Reported) Functional Limitations- ADL's increased time, more painful Functional Limitations- Mobility/Gait 75' with FWW max Functional Limitations- Recreation/ unable Hobbies PT-OP-C Subjective Start: 01/14/21 08:36 Freq: Status: Active Protocol: Document 04/03/21 15:24 [facility] (Rec: 04/03/21 16:15 [facility] [id number]) OP-PT Subjective Patient Comments Patient Comments 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 Hasn't started medications yet. Using kinesiotape on his right leg and finding it helpful. Feels PT kinesiotape to his low back helpful as well States his gluteus maximum sore on right. PT-OP-G Mobility & Gait Start: 01/14/21 08:36 Freq: Status: Active Protocol: Document 01/17/21 14:31 [facility] (Rec: 01/17/21 16:09 [facility] [id number]) OP Gait Assessment Gait Gait Assistance Required: Independent Distance (Feet) 75 Gait Deviations General Gait Pattern Decreased Stride Length, Decreased Feet Clearance, Flexed Trunk Factors Limiting Gait Function Factors Limiting Gait Function Decreased Activity Tolerance, Decreased Strength,Pain PT-OP-J Posture/Palpation/Skin Start: 01/14/21 08:36 Freq: Status: Active Protocol: Document 01/17/21 14:31 [facility] (Rec: 01/17/21 16:09 [facility] [id number]) Posture Evaluation Position Standing Head/C-Spine Posture Forward Head T-Spine Posture Increased Kyphosis L-Spine Posture Decreased Lordosis Scapula Posture (L) Protracted,(R) Protracted Arm Posture (L) Internally Rotated,(R) Internally Rotated Pelvis Posture (L) Rotated Anterior,(R) Rotated Anterior Hip Posture (L) Flexed,(R) Flexed Knee Posture (L) Excess Flexion,(R) Excess Flexion Ankle/Foot Posture (L) Forefoot Eversion,(R) Forefoot Eversion Palpation Assessment Location bilateral cervical paraspinals, UT Palpation Findings Soft Tissue Tightness,Muscle Guarding,Tenderness diana lumbar paraspinals Palpation Findings Soft Tissue Tightness,Muscle Guarding,Tenderness Palpation Details tight diana, right greater than left PT-OP-K Range of Motion Start: 01/14/21 08:36 Freq: Status: Active Protocol: Document 01/17/21 14:31 [facility] (Rec: 01/17/21 16:09 [facility] [id number]) Cervical Spine Range of Motion Cervical Spine Active Degrees Testing Position Sitting Flexion 58 Extension 5 Rotation Left 27 Rotation Right 25 Lateral Flexion Left 14 Lateral Flexion Right 17 ROM Limitations Soft Tissue Tightness,Bony Restriction,Pain Lumbar Spine Range of Motion Lumbar Spine Active Degrees Flexion 20 Extension 0 Rotation Left 15 Rotation Right 15 Lateral Flexion Left 25 Lateral Flexion Right 25 Comments -10 deg ext with c/o increased pain Hip Goniometric Range of Motion Hip Left Flexion w/Knee Flexed 105 Straight Leg Raise 45 Internal Rotation 25 External Rotation 70 Right Flexion w/Knee Flexed 110 Straight Leg Raise 45 Internal Rotation 15 External Rotation 20 Hip ROM Limitations Comments -5 diana hip ext PT-OP-L Special Tests Start: 01/14/21 08:36 Freq: Status: Active Protocol: Document 01/17/21 14:31 [facility] (Rec: 01/17/21 16:09 [facility] [id number]) Special Tests Lumbar Spine Special Tests Manual Traction Test Results positive for increasing pain Horacio Test Results positive for hip flexor tightness diana Straight Leg Raise Test Results positive for muscle tightness not radicular pain Compression Test Results positive right Comments pain radiating to right posterior knee Hip Special Tests Piriformis Test Results positive right Scour Test Test Results negative diana PT-OP-M Strength Start: 01/14/21 08:36 Freq: Status: Active Protocol: Document 01/17/21 14:31 [facility] (Rec: 01/17/21 16:09 [facility] [id number]) Cervical Spine Strength Cervical Spine Manual Muscle Testing Flexion (C1-2) 4 Good Extension 4- Good- Rotation Left 4 Good Rotation Right 4 Good Lateral Flexion Left (C3) 4 Good Lateral Flexion Right (C3) 4 Good Trunk Strength Trunk Manual Muscle Testing Flexion 3+ Fair+ Extension 3+ Fair+ Rotation Left 4- Good- Rotation Right 4- Good- Lateral Flexion Left 4- Good- Lateral Flexion Right 4- Good- Shoulder Strength Shoulder Manual Muscle Testing diana Flexion 4 Good Extension 4- Good- External Rotation 4- Good- Internal Rotation 4- Good- Elbow/Forearm Strength Elbow and Forearm Manual Muscle Testing diana Flexion (C6) 4 Good Extension (C7) 4 Good PT-OP-Q Treatments Start: 01/14/21 08:36 Freq: Status: Active Protocol: Document 04/03/21 15:24 [facility] (Rec: 04/03/21 16:15 [facility] [id number]) Cardio Equipment Recumbent Stepper (Sci-Fit) Duration (Minutes) 10 Resistance 2.0 Seat Position 15 Other 1.5 miles Therapeutic Exercises Sitting Exercises hip ab/ER Comments HEP ball squeeze Comments HEP abdominal corseting Comments HEP HS stretch Comments HEP row, sh ext Comments HEP Manual Therapy Treatment Soft Tissue Mobilization lumbar paraspinals, piriformis Mobilization Type Myofascial Release,Rolling, Strumming Intensity/Depth Moderate Body Position Sitting Self-Care/Home Management Treatment Education Patient Education Home Exercise Program,Pain Management,Posture PT-OP-R Modalities Start: 01/14/21 08:36 Freq: Status: Active Protocol: Document 04/03/21 15:24 [facility] (Rec: 04/03/21 16:15 [facility] [id number]) Electric Stimulation Electric Stimulation Interferential Current (IFC) Body Location bilateral lumbar paraspinals Duration (Minutes) 15 Target/Sweep Sweep High/Low High Patient Position Sitting Combined With Heat/Cold Hot Pack Ultrasound Therapy Treatment Back Treatment Duration (minutes) 8 Patient Position Sitting Coupling Medium Ultrasound Gel Frequency Setting (mHz) 1 Mode Setting Continuous Duty Cycle 100% Intensity Setting (w/cm2) 1.4 Comments bilateral lumbar paraspinals PT-OP-T Assessment and Plan Start: 01/14/21 08:36 Freq: Status: Active Protocol: Document 04/03/21 15:24 [facility] (Rec: 04/03/21 16:15 [facility] [id number]) Physical Therapy Assessment Goals range of motion Impairment stiffness throughout patient's trunk and hips Short Term Goal (STG) Instruct in HEP to address soft tissue mobility impairments STG Duration goal met Digitizer Operator Goal (LTG) Patient to demonstrate improvements in overall flexibility throughout trunk and hips and be safe and independent with HEP and aquatic exercise program for long-term fitness and pain management. 03/21/21: good goal progress LTG Duration 04/17/21 Strength Impairment weakness core and hips Short Term Goal (STG) Patient to begin land and aquatic exercise to address impairments in core and hip muscle strength with good tolerance 03/24/21: goal progress, hasn't started aquatic exercise yet STG Duration 04/02/21 Digitizer Operator Goal (LTG) Improve strength to at least 4 +/5 throughout trunk and LE's with patient demonstrating safety and independence with HEP and aquatic exercise program for long-term fitness and pain management. 03/21/21: some goal progress LTG Duration 04/17/21 Pain Impairment Pain level 7/10 diana lumbar spine and 6/10 diana cervical spine Short Term Goal (STG) Decrease pain to no greater than 5/10 09/07/19: goal progress, 603/21/21: pain level variable, still up to 8/10 at times, more often recently at 4-5/10 STG Duration 03/01/21 Digitizer Operator Goal (LTG) Decrease pain to no greater than 3/10 LTG Duration 04/17/21 Gait Impairment Requires use of walker, unable to walk community distances Short Term Goal (STG) Patient able to walk community distances with FWW with with minimal to no increase in pain. 03/21/21: patient ambulated from parking lot to waiting room, then into PT gym without using assistive device. Patient reports it is harder and he feels more pain, but wants to be able to do. Wants to go golfing again. STG Duration 03/01/21 Group Home Goal (LTG) Patient able to ambulate with cane device for short community distances 03/21/21: only tolerates very short community distances (ie 100' or less) LTG Duration 04/17/21 Activity tolerance Impairment Oswestry disability index score 48% Short Term Goal (STG) Decrease Oswestry score to no greater than 38% as measure of improved patient tolerance for usual daily activities 09/07/19: 52% 03/21/21: decreased to 44%, goal progress STG Duration 03/01/21 Digitizer Operator Goal (LTG) Decrease Oswestry score to no greater than 25% as measure of improved activity tolerance LTG Duration 04/17/21 Assessment Summary Assessment more time spent with soft tissue mobilization to lumbar paraspinals with reduction in tissue tension and pain noted. Walking with cane with improved posture as continue to stress with this patient. Improved compliance to HEP. Physical Therapy Plan Frequency and Duration Frequency of Treatment 2x/Week Duration of Treatment 12 weeks Plan of Care Start Date 01/17/21 Plan of Care End Date 04/17/21 Therapeutic Interventions Therapeutic Interventions Aquatic Therapy,Gait Training, Home Exercise Program,Manual Therapy,Neuromuscular Re- education,Patient/Caregiver Education,Self-Care/Home Management,Soft Tissue Mobilization,Taping, Therapeutic Activities, Therapeutic Exercises Modalities Electric Stimulation,Hot Packs ,Infrared Therapy,Ultrasound Next Visit Focus/Plan Next Note Type Treatment Note Next Visit Plan Continue PT for pain management, ther ex as tolerated. Work toward increased standing tolerance.
--- NOTE | 2021-04-08 16:43 | PT.OTN ---
Current Diagnoses Chronic pain syndrome (04/08/21) Radiculopathy, lumbar region (04/08/21) Cervicalgia (04/08/21) Iliotibial band syndrome, right leg (04/08/21) Arthrodesis status (04/08/21) Other specified postprocedural states (04/08/21) Physical Therapy Treatment Note PT-OP-A Visit Information Start: 01/14/21 08:36 Freq: Status: Active Protocol: Document 04/08/21 14:31 [facility] (Rec: 04/08/21 14:58 [facility] [id number]) Out-Patient Physical Therapy Visit Information Visit Information Visit Type Treatment Note Visit Start Time 14:30 Visit Stop Time 15:30 Total Visit Minutes 60 Visit Number 13 Precautions Precautions history of fusion c/s and l/s with metal. PT-OP-B Current Condition Start: 01/14/21 08:36 Freq: Status: Active Protocol: Document 01/17/21 14:31 [facility] (Rec: 01/17/21 16:09 [facility] [id number]) Current Condition History of Current Condition Onset Date 1 year Current Complaints worsening LBP and neck pain and weakness arms and legs. History of Current Condition neck and back pain progressisvely worsening with decreased activity tolerance. Unable to golf any longer. Tried to drive to [place] 2018, couldn't make it due to pain. Last year coming back from [place] things deteriorated more. but was able to make it back. Numbness and tingling occasionally in hands. States legs give out occasionally and also spasm; states leg spasm in bed hurt his back a few nights ago. Uses walker to go any distance otherwise uses cane or furniture at home . Not currently doing any exercises, can walk about 75' at a time. Stopped doing aquatic exercise due to pool closure as result of Covid-19 and hasn't restarted. Admits to feeling some depressed/ disappointed. States Dr. Tirado recomended he look at going to assisted living and he plans to check out a few facilities in [place] close to his daughter. Prior Treatments and Tests No recent MRI or x-rays chest x-ray 6 months ago negative, states heart and lungs stable. Saw Dr. Littlejohn and 1 year ago; state nothing can be done Seeing Dr. Tirado: having osteopathic treatments; seems to help a little Treatment Goals Patient/Caregiver Goals Decrease pain, improve activity tolerance and function Prior Functional Status Baseline Function- ADL's Modified Independent Baseline Function- Mobility Modified Independent Baseline Function- Gait independent with device community distances Baseline Function- Work/School retired Baseline Function- Recreation/Hobbies restoring cars, golf Current Functional Impairments (Reported) Functional Limitations- ADL's increased time, more painful Functional Limitations- Mobility/Gait 75' with FWW max Functional Limitations- Recreation/ unable Hobbies PT-OP-C Subjective Start: 01/14/21 08:36 Freq: Status: Active Protocol: Document 04/08/21 14:31 [facility] (Rec: 04/08/21 14:58 [facility] [id number]) OP-PT Subjective Patient Comments Patient Comments Likes kinesiotape to spine. Decreased pain after PT, though also continues use of pain medication. Still trying to play golf. PT-OP-G Mobility & Gait Start: 01/14/21 08:36 Freq: Status: Active Protocol: Document 01/17/21 14:31 [facility] (Rec: 01/17/21 16:09 [facility] [id number]) OP Gait Assessment Gait Gait Assistance Required: Independent Distance (Feet) 75 Gait Deviations General Gait Pattern Decreased Stride Length, Decreased Feet Clearance, Flexed Trunk Factors Limiting Gait Function Factors Limiting Gait Function Decreased Activity Tolerance, Decreased Strength,Pain PT-OP-J Posture/Palpation/Skin Start: 01/14/21 08:36 Freq: Status: Active Protocol: Document 01/17/21 14:31 [facility] (Rec: 01/17/21 16:09 [facility] [id number]) Posture Evaluation Position Standing Head/C-Spine Posture Forward Head T-Spine Posture Increased Kyphosis L-Spine Posture Decreased Lordosis Scapula Posture (L) Protracted,(R) Protracted Arm Posture (L) Internally Rotated,(R) Internally Rotated Pelvis Posture (L) Rotated Anterior,(R) Rotated Anterior Hip Posture (L) Flexed,(R) Flexed Knee Posture (L) Excess Flexion,(R) Excess Flexion Ankle/Foot Posture (L) Forefoot Eversion,(R) Forefoot Eversion Palpation Assessment Location bilateral cervical paraspinals, [place] Palpation Findings Soft Tissue Tightness,Muscle Guarding,Tenderness diana lumbar paraspinals Palpation Findings Soft Tissue Tightness,Muscle Guarding,Tenderness Palpation Details tight diana, right greater than left PT-OP-K Range of Motion Start: 01/14/21 08:36 Freq: Status: Active Protocol: Document 01/17/21 14:31 [facility] (Rec: 01/17/21 16:09 [facility] [id number]) Cervical Spine Range of Motion Cervical Spine Active Degrees Testing Position Sitting Flexion 58 Extension 5 Rotation Left 27 Rotation Right 25 Lateral Flexion Left 14 Lateral Flexion Right 17 ROM Limitations Soft Tissue Tightness,Bony Restriction,Pain Lumbar Spine Range of Motion Lumbar Spine Active Degrees Flexion 20 Extension 0 Rotation Left 15 Rotation Right 15 Lateral Flexion Left 25 Lateral Flexion Right 25 Comments -10 deg ext with c/o increased pain Hip Goniometric Range of Motion Hip Left Flexion w/Knee Flexed 105 Straight Leg Raise 45 Internal Rotation 25 External Rotation 70 Right Flexion w/Knee Flexed 110 Straight Leg Raise 45 Internal Rotation 15 External Rotation 20 Hip ROM Limitations Comments -5 diana hip ext PT-OP-L Special Tests Start: 01/14/21 08:36 Freq: Status: Active Protocol: Document 01/17/21 14:31 [facility] (Rec: 01/17/21 16:09 [facility] [id number]) Special Tests Lumbar Spine Special Tests Manual Traction Test Results positive for increasing pain Horacio Test Results positive for hip flexor tightness diana Straight Leg Raise Test Results positive for muscle tightness not radicular pain Compression Test Results positive right Comments pain radiating to right posterior knee Hip Special Tests Piriformis Test Results positive right Scour Test Test Results negative diana PT-OP-M Strength Start: 01/14/21 08:36 Freq: Status: Active Protocol: Document 01/17/21 14:31 [facility] (Rec: 01/17/21 16:09 [facility] [id number]) Cervical Spine Strength Cervical Spine Manual Muscle Testing Flexion (C1-2) 4 Good Extension 4- Good- Rotation Left 4 Good Rotation Right 4 Good Lateral Flexion Left (C3) 4 Good Lateral Flexion Right (C3) 4 Good Trunk Strength Trunk Manual Muscle Testing Flexion 3+ Fair+ Extension 3+ Fair+ Rotation Left 4- Good- Rotation Right 4- Good- Lateral Flexion Left 4- Good- Lateral Flexion Right 4- Good- Shoulder Strength Shoulder Manual Muscle Testing diana Flexion 4 Good Extension 4- Good- External Rotation 4- Good- Internal Rotation 4- Good- Elbow/Forearm Strength Elbow and Forearm Manual Muscle Testing diana Flexion (C6) 4 Good Extension (C7) 4 Good PT-OP-Q Treatments Start: 03/29/21 08:36 Freq: Status: Active Protocol: Document 04/08/21 14:31 [facility] (Rec: 04/08/21 14:58 [facility] [id number]) Cardio Equipment Recumbent Bicycle Duration (Minutes) 10 Resistance 3-5 Seat Position 10 Gym Equipment Shuttle Recovery Bilateral Squats Resistance 62 Shuttle Recovery Platform Stable Reps/Time 10x2 Therapeutic Exercises Sitting Exercises row, sh ext Resistance L2 TB Equipment Used Dynadisc Reps/Minutes 12x ea Manual Therapy Treatment Soft Tissue Mobilization lumbar paraspinals, piriformis Mobilization Type Myofascial Release,Rolling, Strumming Intensity/Depth Moderate Body Position Sitting PT-OP-R Modalities Start: 01/14/21 08:36 Freq: Status: Active Protocol: Document 04/08/21 14:31 [facility] (Rec: 04/08/21 14:58 [facility] [id number]) Electric Stimulation Electric Stimulation Interferential Current (IFC) Body Location bilateral lumbar paraspinals Duration (Minutes) 15 Target/Sweep Sweep High/Low High Patient Position Sitting Combined With Heat/Cold Hot Pack Ultrasound Therapy Treatment Back Treatment Duration (minutes) 8 Patient Position Sitting Coupling Medium Ultrasound Gel Frequency Setting (mHz) 1 Mode Setting Continuous Duty Cycle 100% Intensity Setting (w/cm2) 1.4 Comments bilateral lumbar paraspinals PT-OP-T Assessment and Plan Start: 01/14/21 08:36 Freq: Status: Active Protocol: Document 04/08/21 14:31 [facility] (Rec: 04/08/21 14:58 [facility] [id number]) Physical Therapy Assessment Goals range of motion Impairment stiffness throughout patient's trunk and hips Short Term Goal (STG) Instruct in HEP to address soft tissue mobility impairments STG Duration goal met Alf Goal (LTG) Patient to demonstrate improvements in overall flexibility throughout trunk and hips and be safe and independent with HEP and aquatic exercise program for long-term fitness and pain management. 03/21/21: good goal progress LTG Duration 04/17/21 Strength Impairment weakness core and hips Short Term Goal (STG) Patient to begin land and aquatic exercise to address impairments in core and hip muscle strength with good tolerance 03/24/21: goal progress, hasn't started aquatic exercise yet STG Duration 04/02/21 Tunnel Worker Goal (LTG) Improve strength to at least 4 +/5 throughout trunk and LE's with patient demonstrating safety and independence with HEP and aquatic exercise program for long-term fitness and pain management. 03/21/21: some goal progress LTG Duration 04/17/21 Pain Impairment Pain level 7/10 diana lumbar spine and 6/10 diana cervical spine Short Term Goal (STG) Decrease pain to no greater than 5/10 09/07/19: goal progress, 6/10 03/21/21: pain level variable, still up to 8/10 at times, more often recently at 4-5/10 STG Duration 03/01/21 Alf Goal (LTG) Decrease pain to no greater than 3/10 LTG Duration 04/17/21 Gait Impairment Requires use of walker, unable to walk community distances Short Term Goal (STG) Patient able to walk community distances with FWW with with minimal to no increase in pain. 03/21/21: patient ambulated from parking lot to waiting room, then into PT gym without using assistive device. Patient reports it is harder and he feels more pain, but wants to be able to do. Wants to go golfing again. STG Duration 03/01/21 Alf Goal (LTG) Patient able to ambulate with cane device for short community distances 03/21/21: only tolerates very short community distances (ie 100' or less) LTG Duration 04/17/21 Activity tolerance Impairment Oswestry disability index score 48% Short Term Goal (STG) Decrease Oswestry score to no greater than 38% as measure of improved patient tolerance for usual daily activities 09/07/19: 52% 03/21/21: decreased to 44%, goal progress STG Duration 03/01/21 Alf Goal (LTG) Decrease Oswestry score to no greater than 25% as measure of improved activity tolerance LTG Duration 04/17/21 Assessment Summary Assessment Improved mobility, decreased pain after PT. Recumbant exercise bike trial today instead of elliptical. Able to add Shuttle Leg press back into ex program. Physical Therapy Plan Frequency and Duration Frequency of Treatment 2x/Week Duration of Treatment 12 weeks Plan of Care Start Date 01/17/21 Plan of Care End Date 04/17/21 Therapeutic Interventions Therapeutic Interventions Aquatic Therapy,Gait Training, Home Exercise Program,Manual Therapy,Neuromuscular Re- education,Patient/Caregiver Education,Self-Care/Home Management,Soft Tissue Mobilization,Taping, Therapeutic Activities, Therapeutic Exercises Modalities Electric Stimulation,Hot Packs ,Infrared Therapy,Ultrasound Next Visit Focus/Plan Next Note Type Treatment Note Next Visit Plan Progress ther ex as tolerated to continue to improve strength, core stabilization
--- NOTE | 2021-04-10 17:03 | PT.OTN ---
Current Diagnoses Chronic pain syndrome (04/10/21) Radiculopathy, lumbar region (04/10/21) Cervicalgia (04/10/21) Iliotibial band syndrome, right leg (04/10/21) Arthrodesis status (04/10/21) Other specified postprocedural states (04/10/21) Physical Therapy Treatment Note PT-OP-A Visit Information Start: 01/14/21 08:36 Freq: Status: Active Protocol: Document 04/10/21 13:02 [facility] (Rec: 04/10/21 15:10 [facility] [id number]) Out-Patient Physical Therapy Visit Information Visit Information Visit Type Treatment Note Visit Note Had to leave early for another appointment Visit Start Time 13:00 Visit Stop Time 13:45 Total Visit Minutes 45 Visit Number 13 Precautions Precautions history of fusion c/s and l/s with metal. PT-OP-B Current Condition Start: 01/14/21 08:36 Freq: Status: Active Protocol: Document 01/17/21 14:31 [facility] (Rec: 01/17/21 16:09 [facility] [id number]) Current Condition History of Current Condition Onset Date 1 year Current Complaints worsening LBP and neck pain and weakness arms and legs. History of Current Condition neck and back pain progressisvely worsening with decreased activity tolerance. Unable to golf any longer. Tried to drive to [place] 2018, couldn't make it due to pain. Last year coming back from [place] things deteriorated more. but was able to make it back. Numbness and tingling occasionally in hands. States legs give out occasionally and also spasm; states leg spasm in bed hurt his back a few nights ago. Uses walker to go any distance otherwise uses cane or furniture at home . Not currently doing any exercises, can walk about 75' at a time. Stopped doing aquatic exercise due to pool closure as result of Covid-19 and hasn't restarted. Admits to feeling some depressed/ disappointed. States Dr. Tirado recomended he look at going to assisted living and he plans to check out a few facilities in [place] close to his daughter. Prior Treatments and Tests No recent MRI or x-rays chest x-ray 6 months ago negative, states heart and lungs stable. Saw Dr. Littlejohn and 1 year ago; state nothing can be done Seeing Dr. Tirado: having osteopathic treatments; seems to help a little Treatment Goals Patient/Caregiver Goals Decrease pain, improve activity tolerance and function Prior Functional Status Baseline Function- ADL's Modified Independent Baseline Function- Mobility Modified Independent Baseline Function- Gait independent with device community distances Baseline Function- Work/School retired Baseline Function- Recreation/Hobbies restoring cars, golf Current Functional Impairments (Reported) Functional Limitations- ADL's increased time, more painful Functional Limitations- Mobility/Gait 75' with FWW max Functional Limitations- Recreation/ unable Hobbies PT-OP-C Subjective Start: 01/14/21 08:36 Freq: Status: Active Protocol: Document 04/10/21 13:02 [facility] (Rec: 04/10/21 15:10 [facility] [id number]) OP-PT Subjective Patient Comments Patient Comments No new c/o. Sees Dr. Tirado right after PT. PT-OP-G Mobility & Gait Start: 01/14/21 08:36 Freq: Status: Active Protocol: Document 01/17/21 14:31 [facility] (Rec: 01/17/21 16:09 [facility] [id number]) OP Gait Assessment Gait Gait Assistance Required: Independent Distance (Feet) 75 Gait Deviations General Gait Pattern Decreased Stride Length, Decreased Feet Clearance, Flexed Trunk Factors Limiting Gait Function Factors Limiting Gait Function Decreased Activity Tolerance, Decreased Strength,Pain PT-OP-J Posture/Palpation/Skin Start: 01/14/21 08:36 Freq: Status: Active Protocol: Document 01/17/21 14:31 [facility] (Rec: 01/17/21 16:09 [facility] [id number]) Posture Evaluation Position Standing Head/C-Spine Posture Forward Head T-Spine Posture Increased Kyphosis L-Spine Posture Decreased Lordosis Scapula Posture (L) Protracted,(R) Protracted Arm Posture (L) Internally Rotated,(R) Internally Rotated Pelvis Posture (L) Rotated Anterior,(R) Rotated Anterior Hip Posture (L) Flexed,(R) Flexed Knee Posture (L) Excess Flexion,(R) Excess Flexion Ankle/Foot Posture (L) Forefoot Eversion,(R) Forefoot Eversion Palpation Assessment Location bilateral cervical paraspinals, [place] Palpation Findings Soft Tissue Tightness,Muscle Guarding,Tenderness diana lumbar paraspinals Palpation Findings Soft Tissue Tightness,Muscle Guarding,Tenderness Palpation Details tight diana, right greater than left PT-OP-K Range of Motion Start: 01/14/21 08:36 Freq: Status: Active Protocol: Document 01/17/21 14:31 [facility] (Rec: 01/17/21 16:09 [facility] [id number]) Cervical Spine Range of Motion Cervical Spine Active Degrees Testing Position Sitting Flexion 58 Extension 5 Rotation Left 27 Rotation Right 25 Lateral Flexion Left 14 Lateral Flexion Right 17 ROM Limitations Soft Tissue Tightness,Bony Restriction,Pain Lumbar Spine Range of Motion Lumbar Spine Active Degrees Flexion 20 Extension 0 Rotation Left 15 Rotation Right 15 Lateral Flexion Left 25 Lateral Flexion Right 25 Comments -10 deg ext with c/o increased pain Hip Goniometric Range of Motion Hip Left Flexion w/Knee Flexed 105 Straight Leg Raise 45 Internal Rotation 25 External Rotation 70 Right Flexion w/Knee Flexed 110 Straight Leg Raise 45 Internal Rotation 15 External Rotation 20 Hip ROM Limitations Comments -5 diana hip ext PT-OP-L Special Tests Start: 01/14/21 08:36 Freq: Status: Active Protocol: Document 01/17/21 14:31 [facility] (Rec: 01/17/21 16:09 [facility] [id number]) Special Tests Lumbar Spine Special Tests Manual Traction Test Results positive for increasing pain Horacio Test Results positive for hip flexor tightness diana Straight Leg Raise Test Results positive for muscle tightness not radicular pain Compression Test Results positive right Comments pain radiating to right posterior knee Hip Special Tests Piriformis Test Results positive right Scour Test Test Results negative diana PT-OP-M Strength Start: 01/14/21 08:36 Freq: Status: Active Protocol: Document 01/17/21 14:31 [facility] (Rec: 01/17/21 16:09 [facility] [id number]) Cervical Spine Strength Cervical Spine Manual Muscle Testing Flexion (C1-2) 4 Good Extension 4- Good- Rotation Left 4 Good Rotation Right 4 Good Lateral Flexion Left (C3) 4 Good Lateral Flexion Right (C3) 4 Good Trunk Strength Trunk Manual Muscle Testing Flexion 3+ Fair+ Extension 3+ Fair+ Rotation Left 4- Good- Rotation Right 4- Good- Lateral Flexion Left 4- Good- Lateral Flexion Right 4- Good- Shoulder Strength Shoulder Manual Muscle Testing diana Flexion 4 Good Extension 4- Good- External Rotation 4- Good- Internal Rotation 4- Good- Elbow/Forearm Strength Elbow and Forearm Manual Muscle Testing diana Flexion (C6) 4 Good Extension (C7) 4 Good PT-OP-Q Treatments Start: 01/14/21 08:36 Freq: Status: Active Protocol: Document 04/10/21 13:02 [facility] (Rec: 04/10/21 15:10 [facility] [id number]) Cardio Equipment Recumbent Stepper (Sci-Fit) Duration (Minutes) 10 Resistance 2.0 Seat Position 15 Other 1.5 miles Manual Therapy Treatment Soft Tissue Mobilization lumbar paraspinals, piriformis Mobilization Type Myofascial Release,Rolling, Strumming Intensity/Depth Moderate Body Position Sitting Taping 1 Body Location bilateral lumbar paraspinals Treatment Focus inhibition, pain reduction Type of Tape kinesiotape Skin Inspection intact Comments paper off tension PT-OP-R Modalities Start: 01/14/21 08:36 Freq: Status: Active Protocol: Document 04/10/21 13:02 [facility] (Rec: 04/10/21 15:10 [facility] [id number]) Electric Stimulation Electric Stimulation Interferential Current (IFC) Body Location bilateral lumbar paraspinals Duration (Minutes) 15 Target/Sweep Sweep High/Low High Patient Position Sitting Combined With Heat/Cold Hot Pack Ultrasound Therapy Treatment Back Treatment Duration (minutes) 8 Patient Position Sitting Coupling Medium Ultrasound Gel Frequency Setting (mHz) 1 Mode Setting Continuous Duty Cycle 100% Intensity Setting (w/cm2) 1.4 Comments bilateral lumbar paraspinals PT-OP-T Assessment and Plan Start: 01/14/21 08:36 Freq: Status: Active Protocol: Document 04/10/21 13:02 [facility] (Rec: 04/10/21 15:10 [facility] [id number]) Physical Therapy Assessment Goals range of motion Impairment stiffness throughout patient's trunk and hips Short Term Goal (STG) Instruct in HEP to address soft tissue mobility impairments STG Duration goal met Jail Goal (LTG) Patient to demonstrate improvements in overall flexibility throughout trunk and hips and be safe and independent with HEP and aquatic exercise program for long-term fitness and pain management. 03/21/21: good goal progress LTG Duration 04/17/21 Strength Impairment weakness core and hips Short Term Goal (STG) Patient to begin land and aquatic exercise to address impairments in core and hip muscle strength with good tolerance 03/24/21: goal progress, hasn't started aquatic exercise yet STG Duration 04/02/21 [employer]ing Engineering Tech Goal (LTG) Improve strength to at least 4 +/5 throughout trunk and LE's with patient demonstrating safety and independence with HEP and aquatic exercise program for long-term fitness and pain management. 03/21/21: some goal progress LTG Duration 04/17/21 Pain Impairment Pain level 7/10 diana lumbar spine and 6/10 diana cervical spine Short Term Goal (STG) Decrease pain to no greater than 5/10 09/07/19: goal progress, 6/10 03/21/21: pain level variable, still up to 8/10 at times, more often recently at 4-5/10 STG Duration 03/01/21 Jail Goal (LTG) Decrease pain to no greater than 3/10 LTG Duration 04/17/21 Gait Impairment Requires use of walker, unable to walk community distances Short Term Goal (STG) Patient able to walk community distances with FWW with with minimal to no increase in pain. 03/21/21: patient ambulated from parking lot to waiting room, then into PT gym without using assistive device. Patient reports it is harder and he feels more pain, but wants to be able to do. Wants to go golfing again. STG Duration 03/01/21 Jail Goal (LTG) Patient able to ambulate with cane device for short community distances 03/21/21: only tolerates very short community distances (ie 100' or less) LTG Duration 04/17/21 Activity tolerance Impairment Oswestry disability index score 48% Short Term Goal (STG) Decrease Oswestry score to no greater than 38% as measure of improved patient tolerance for usual daily activities 09/07/19: 52% 03/21/21: decreased to 44%, goal progress STG Duration 03/01/21 Tooling Engineering Tech Goal (LTG) Decrease Oswestry score to no greater than 25% as measure of improved activity tolerance LTG Duration 04/17/21 Assessment Summary Assessment Patient had to leave early to get to another appontment, reports he would do all exercises at home, so after Sci-Fit treatment focused on ultrasound, manual treatment, and IFES. Kinesiotape reapplied to lumbar spine. Physical Therapy Plan Frequency and Duration Frequency of Treatment 2x/Week Duration of Treatment 12 weeks Plan of Care Start Date 01/17/21 Plan of Care End Date 04/17/21 Therapeutic Interventions Therapeutic Interventions Aquatic Therapy,Gait Training, Home Exercise Program,Manual Therapy,Neuromuscular Re- education,Patient/Caregiver Education,Self-Care/Home Management,Soft Tissue Mobilization,Taping, Therapeutic Activities, Therapeutic Exercises Modalities Electric Stimulation,Hot Packs ,Infrared Therapy,Ultrasound Next Visit Focus/Plan Next Note Type Treatment Note Next Visit Plan Progress ther ex as tolerated to continue to improve strength, core stabilization. Modalities and manual therapy as indicated for pain.
--- NOTE | 2021-04-15 16:29 | PT.OTN ---
Current Diagnoses Chronic pain syndrome (04/15/21) Radiculopathy, lumbar region (04/15/21) Cervicalgia (04/15/21) Iliotibial band syndrome, right leg (04/15/21) Arthrodesis status (04/15/21) Other specified postprocedural states (04/15/21) Physical Therapy Treatment Note PT-OP-A Visit Information Start: 01/14/21 08:36 Freq: Status: Active Protocol: Document 04/15/21 14:34 [facility] (Rec: 04/15/21 14:51 [facility] [id number]) Out-Patient Physical Therapy Visit Information Visit Information Visit Type Treatment Note Visit Start Time 13:00 Visit Stop Time 13:45 Total Visit Minutes 45 Visit Number 15 Precautions Precautions history of fusion c/s and l/s with metal. PT-OP-B Current Condition Start: 01/14/21 08:36 Freq: Status: Active Protocol: Document 01/17/21 14:31 [facility] (Rec: 01/17/21 16:09 [facility] [id number]) Current Condition History of Current Condition Onset Date 1 year Current Complaints worsening LBP and neck pain and weakness arms and legs. History of Current Condition neck and back pain progressisvely worsening with decreased activity tolerance. Unable to golf any longer. Tried to drive to [place] 2018, couldn't make it due to pain. Last year coming back from [place] things deteriorated more. but was able to make it back. Numbness and tingling occasionally in hands. States legs give out occasionally and also spasm; states leg spasm in bed hurt his back a few nights ago. Uses walker to go any distance otherwise uses cane or furniture at home . Not currently doing any exercises, can walk about 75' at a time. Stopped doing aquatic exercise due to pool closure as result of Covid-19 and hasn't restarted. Admits to feeling some depressed/ disappointed. States Dr. Tirado recomended he look at going to assisted living and he plans to check out a few facilities in [place] close to his daughter. Prior Treatments and Tests No recent MRI or x-rays chest x-ray 6 months ago negative, states heart and lungs stable. Saw Dr. Littlejohn and 1 year ago; state nothing can be done Seeing Dr. Tirado: having osteopathic treatments; seems to help a little Treatment Goals Patient/Caregiver Goals Decrease pain, improve activity tolerance and function Prior Functional Status Baseline Function- ADL's Modified Independent Baseline Function- Mobility Modified Independent Baseline Function- Gait independent with device community distances Baseline Function- Work/School retired Baseline Function- Recreation/Hobbies restoring cars, golf Current Functional Impairments (Reported) Functional Limitations- ADL's increased time, more painful Functional Limitations- Mobility/Gait 75' with FWW max Functional Limitations- Recreation/ unable Hobbies PT-OP-C Subjective Start: 01/14/21 08:36 Freq: Status: Active Protocol: Document 04/15/21 14:34 [facility] (Rec: 04/15/21 14:51 [facility] [id number]) OP-PT Subjective Patient Comments Patient Comments Has decided Dr. Tirado's pneumatic hammer not helpful, still getting over the pain from that ttretment. Can do a little walking without cane now. PT-OP-G Mobility & Gait Start: 01/14/21 08:36 Freq: Status: Active Protocol: Document 01/17/21 14:31 [facility] (Rec: 01/17/21 16:09 [facility] [id number]) OP Gait Assessment Gait Gait Assistance Required: Independent Distance (Feet) 75 Gait Deviations General Gait Pattern Decreased Stride Length, Decreased Feet Clearance, Flexed Trunk Factors Limiting Gait Function Factors Limiting Gait Function Decreased Activity Tolerance, Decreased Strength,Pain PT-OP-J Posture/Palpation/Skin Start: 01/14/21 08:36 Freq: Status: Active Protocol: Document 01/17/21 14:31 [facility] (Rec: 01/17/21 16:09 [facility] [id number]) Posture Evaluation Position Standing Head/C-Spine Posture Forward Head T-Spine Posture Increased Kyphosis L-Spine Posture Decreased Lordosis Scapula Posture (L) Protracted,(R) Protracted Arm Posture (L) Internally Rotated,(R) Internally Rotated Pelvis Posture (L) Rotated Anterior,(R) Rotated Anterior Hip Posture (L) Flexed,(R) Flexed Knee Posture (L) Excess Flexion,(R) Excess Flexion Ankle/Foot Posture (L) Forefoot Eversion,(R) Forefoot Eversion Palpation Assessment Location bilateral cervical paraspinals, [place] Palpation Findings Soft Tissue Tightness,Muscle Guarding,Tenderness diana lumbar paraspinals Palpation Findings Soft Tissue Tightness,Muscle Guarding,Tenderness Palpation Details tight diana, right greater than left PT-OP-K Range of Motion Start: 01/14/21 08:36 Freq: Status: Active Protocol: Document 01/17/21 14:31 [facility] (Rec: 01/17/21 16:09 [facility] [id number]) Cervical Spine Range of Motion Cervical Spine Active Degrees Testing Position Sitting Flexion 58 Extension 5 Rotation Left 27 Rotation Right 25 Lateral Flexion Left 14 Lateral Flexion Right 17 ROM Limitations Soft Tissue Tightness,Bony Restriction,Pain Lumbar Spine Range of Motion Lumbar Spine Active Degrees Flexion 20 Extension 0 Rotation Left 15 Rotation Right 15 Lateral Flexion Left 25 Lateral Flexion Right 25 Comments -10 deg ext with c/o increased pain Hip Goniometric Range of Motion Hip Left Flexion w/Knee Flexed 105 Straight Leg Raise 45 Internal Rotation 25 External Rotation 70 Right Flexion w/Knee Flexed 110 Straight Leg Raise 45 Internal Rotation 15 External Rotation 20 Hip ROM Limitations Comments -5 diana hip ext PT-OP-L Special Tests Start: 01/14/21 08:36 Freq: Status: Active Protocol: Document 01/17/21 14:31 [facility] (Rec: 01/17/21 16:09 [facility] [id number]) Special Tests Lumbar Spine Special Tests Manual Traction Test Results positive for increasing pain Horacio Test Results positive for hip flexor tightness diana Straight Leg Raise Test Results positive for muscle tightness not radicular pain Compression Test Results positive right Comments pain radiating to right posterior knee Hip Special Tests Piriformis Test Results positive right Scour Test Test Results negative diana PT-OP-M Strength Start: 01/14/21 08:36 Freq: Status: Active Protocol: Document 01/17/21 14:31 [facility] (Rec: 01/17/21 16:09 [facility] [id number]) Cervical Spine Strength Cervical Spine Manual Muscle Testing Flexion (C1-2) 4 Good Extension 4- Good- Rotation Left 4 Good Rotation Right 4 Good Lateral Flexion Left (C3) 4 Good Lateral Flexion Right (C3) 4 Good Trunk Strength Trunk Manual Muscle Testing Flexion 3+ Fair+ Extension 3+ Fair+ Rotation Left 4- Good- Rotation Right 4- Good- Lateral Flexion Left 4- Good- Lateral Flexion Right 4- Good- Shoulder Strength Shoulder Manual Muscle Testing diana Flexion 4 Good Extension 4- Good- External Rotation 4- Good- Internal Rotation 4- Good- Elbow/Forearm Strength Elbow and Forearm Manual Muscle Testing diana Flexion (C6) 4 Good Extension (C7) 4 Good PT-OP-Q Treatments Start: 01/14/21 08:36 Freq: Status: Active Protocol: Document 04/15/21 14:34 [facility] (Rec: 04/15/21 14:51 [facility] [id number]) Cardio Equipment Recumbent Stepper (Sci-Fit) Duration (Minutes) 10 Resistance 2.0 Seat Position 15 Other 1.5 miles Gym Equipment Shuttle Recovery Bilateral Squats Resistance 62 Shuttle Recovery Platform Stable Reps/Time 10x2 Therapeutic Exercises Sitting Exercises row, sh ext Resistance L2 TB Equipment Used Dynadisc Reps/Minutes 12x ea Manual Therapy Treatment Soft Tissue Mobilization lumbar paraspinals, piriformis Mobilization Type Myofascial Release,Rolling, Strumming Intensity/Depth Moderate Body Position Sitting Taping 1 Body Location bilateral lumbar paraspinals Treatment Focus inhibition, pain reduction Type of Tape kinesiotape Skin Inspection intact Comments paper off tension PT-OP-R Modalities Start: 01/14/21 08:36 Freq: Status: Active Protocol: Document 04/15/21 14:34 [facility] (Rec: 04/15/21 14:51 [facility] [id number]) Electric Stimulation Electric Stimulation Interferential Current (IFC) Body Location bilateral lumbar paraspinals Duration (Minutes) 15 Target/Sweep Sweep High/Low High Patient Position Sitting Combined With Heat/Cold Hot Pack Ultrasound Therapy Treatment Back Treatment Duration (minutes) 8 Patient Position Sitting Coupling Medium Ultrasound Gel Frequency Setting (mHz) 1 Mode Setting Continuous Duty Cycle 100% Intensity Setting (w/cm2) 1.4 Comments bilateral lumbar paraspinals PT-OP-T Assessment and Plan Start: 01/14/21 08:36 Freq: Status: Active Protocol: Document 04/15/21 14:34 [facility] (Rec: 04/15/21 14:51 [facility] [id number]) Physical Therapy Assessment Goals range of motion Impairment stiffness throughout patient's trunk and hips Short Term Goal (STG) Instruct in HEP to address soft tissue mobility impairments STG Duration goal met [employer] Goal (LTG) Patient to demonstrate improvements in overall flexibility throughout trunk and hips and be safe and independent with HEP and aquatic exercise program for long-term fitness and pain management. 03/21/21: good goal progress LTG Duration 04/17/21 Strength Impairment weakness core and hips Short Term Goal (STG) Patient to begin land and aquatic exercise to address impairments in core and hip muscle strength with good tolerance 03/24/21: goal progress, hasn't started aquatic exercise yet STG Duration 04/02/21 [facility] Goal (LTG) Improve strength to at least 4 +/5 throughout trunk and LE's with patient demonstrating safety and independence with HEP and aquatic exercise program for long-term fitness and pain management. 03/21/21: some goal progress LTG Duration 04/17/21 Pain Impairment Pain level 7/10 diana lumbar spine and 6/10 diana cervical spine Short Term Goal (STG) Decrease pain to no greater than 5/10 09/07/19: goal progress, 603/21/21: pain level variable, still up to 8/10 at times, more often recently at 4-5/10 STG Duration 03/01/21 [facility] Goal (LTG) Decrease pain to no greater than 3/10 LTG Duration 04/17/21 Gait Impairment Requires use of walker, unable to walk community distances Short Term Goal (STG) Patient able to walk community distances with FWW with with minimal to no increase in pain. 03/21/21: patient ambulated from parking lot to waiting room, then into PT gym without using assistive device. Patient reports it is harder and he feels more pain, but wants to be able to do. Wants to go golfing again. 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 [employer] Goal (LTG) Patient able to ambulate with cane device for short community distances 03/21/21: only tolerates very short community distances (ie 100' or less) LTG Duration 04/17/21 Activity tolerance Impairment Oswestry disability index score 48% Short Term Goal (STG) Decrease Oswestry score to no greater than 38% as measure of improved patient tolerance for usual daily activities 09/07/19: 52% 03/21/21: decreased to 44%, goal progress STG Duration 03/01/21 [facility] Goal (LTG) Decrease Oswestry score to no greater than 25% as measure of improved activity tolerance LTG Duration 04/17/21 Assessment Summary Assessment Improved gait, able to walk into PT without device today, improved posture and speed of gait. Physical Therapy Plan Frequency and Duration Frequency of Treatment 2x/Week Duration of Treatment 12 weeks Plan of Care Start Date 01/17/21 Plan of Care End Date 04/17/21 Therapeutic Interventions Therapeutic Interventions Aquatic Therapy,Gait Training, Home Exercise Program,Manual Therapy,Neuromuscular Re- education,Patient/Caregiver Education,Self-Care/Home Management,Soft Tissue Mobilization,Taping, Therapeutic Activities, Therapeutic Exercises Modalities Electric Stimulation,Hot Packs ,Infrared Therapy,Ultrasound Next Visit Focus/Plan Next Note Type Treatment Note Next Visit Plan Continue PT per POC.
--- NOTE | 2021-04-17 15:53 | PT.OTRE ---
Current Diagnoses Chronic pain syndrome (04/17/21) Radiculopathy, lumbar region (04/17/21) Cervicalgia (04/17/21) Iliotibial band syndrome, right leg (04/17/21) Arthrodesis status (04/17/21) Other specified postprocedural states (04/17/21) Past Medical History (Last Updated 04/05/21 @ 15:17 by Shiva Tirado DO) Atrial fibrillation (~1993) Bilateral lower extremity edema Bladder cancer BPH (benign prostatic hyperplasia) Cervical somatic dysfunction Cervical spine disease Chronic neck pain Coordination of complex care Coronary artery disease Excessive cerumen in both ear canals GERD (gastroesophageal reflux disease) History of abdominal aortic aneurysm repair (~2006) Hx of cervical discectomy Hx of coronary artery bypass graft (~1980) Hx of laminectomy (~04/2016) Hx of transurethral resection of prostate Hypertension Hypotension Idiopathic pulmonary fibrosis Iliotibial band syndrome, right leg Increased frequency of urination Increasing shortness of breath Macrocytosis Malaise and fatigue Menieres disease Muscular deconditioning Myocardial infarction (1978) Nausea Night sweats Pelvic somatic dysfunction Restrictive lung disease Rib pain on left side S/P carotid endarterectomy (~1990) Segmental and somatic dysfunction of abdomen and other regions Segmental and somatic dysfunction of lower extremity Segmental and somatic dysfunction of lumbar region Segmental and somatic dysfunction of rib cage Segmental and somatic dysfunction of sacral region Segmental and somatic dysfunction of thoracic region Shortness of breath Somatic dysfunction of lower extremity Thoracic aortic aneurysm Tremor Surgical History (Last Reviewed 06/10/20 @ 09:23 by Aleena Portillo DO) History of abdominal aortic aneurysm repair (~2006) Hx of cervical discectomy Hx of coronary artery bypass graft (~1980) Hx of laminectomy (~04/2016) Hx of transurethral resection of prostate S/P carotid endarterectomy (~1990) Visit Care Team Role Provider Type Shiva Tirado DO Attending Provider Physician Primary Care Provider Referring Provider Specialty: [facility] Address: [address] [place] [address], [facility] Email: Physical Therapy Re-Evaluation PT-OP-A Visit Information Start: 01/14/21 08:36 Freq: Status: Active Protocol: Document 04/17/21 12:56 [facility] (Rec: 04/17/21 13:42 [facility] [id number]) Out-Patient Physical Therapy Visit Information Visit Information Visit Type Treatment Note Visit Start Time 13:00 Visit Stop Time 13:45 Total Visit Minutes 60 Visit Number 16 Precautions Precautions history of fusion c/s and l/s with metal. PT-OP-B Current Condition Start: 01/14/21 08:36 Freq: Status: Active Protocol: Document 01/17/21 14:31 [facility] (Rec: 01/17/21 16:09 [facility] [id number]) Current Condition History of Current Condition Onset Date 1 year Current Complaints worsening LBP and neck pain and weakness arms and legs. History of Current Condition neck and back pain progressisvely worsening with decreased activity tolerance. Unable to golf any longer. Tried to drive to [place] 2018, couldn't make it due to pain. Last year coming back from [place] things deteriorated more. but was able to make it back. Numbness and tingling occasionally in hands. States legs give out occasionally and also spasm; states leg spasm in bed hurt his back a few nights ago. Uses walker to go any distance otherwise uses cane or furniture at home . Not currently doing any exercises, can walk about 75' at a time. Stopped doing aquatic exercise due to pool closure as result of Covid-19 and hasn't restarted. Admits to feeling some depressed/ disappointed. States Dr. Tirado recomended he look at going to assisted living and he plans to check out a few facilities in [place] close to his daughter. Prior Treatments and Tests No recent MRI or x-rays chest x-ray 6 months ago negative, states heart and lungs stable. Saw Dr. Littlejohn and 1 year ago; state nothing can be done Seeing Dr. Tirado: having osteopathic treatments; seems to help a little Treatment Goals Patient/Caregiver Goals Decrease pain, improve activity tolerance and function Prior Functional Status Baseline Function- ADL's Modified Independent Baseline Function- Mobility Modified Independent Baseline Function- Gait independent with device community distances Baseline Function- Work/School retired Baseline Function- Recreation/Hobbies restoring cars, golf Current Functional Impairments (Reported) Functional Limitations- ADL's increased time, more painful Functional Limitations- Mobility/Gait 75' with FWW max Functional Limitations- Recreation/ unable Hobbies PT-OP-C Subjective Start: 01/14/21 08:36 Freq: Status: Active Protocol: Document 04/17/21 12:56 [facility] (Rec: 04/17/21 13:42 [facility] [id number]) OP-PT Subjective Patient Comments Patient Comments No new c/o. Feels he continues to make progress. PT-OP-G Mobility & Gait Start: 01/14/21 08:36 Freq: Status: Active Protocol: Document 01/17/21 14:31 [facility] (Rec: 01/17/21 16:09 [facility] [id number]) OP Gait Assessment Gait Gait Assistance Required: Independent Distance (Feet) 75 Gait Deviations General Gait Pattern Decreased Stride Length, Decreased Feet Clearance, Flexed Trunk Factors Limiting Gait Function Factors Limiting Gait Function Decreased Activity Tolerance, Decreased Strength,Pain PT-OP-J Posture/Palpation/Skin Start: 01/14/21 08:36 Freq: Status: Active Protocol: Document 01/17/21 14:31 [facility] (Rec: 01/17/21 16:09 [facility] [id number]) Posture Evaluation Position Standing Head/C-Spine Posture Forward Head T-Spine Posture Increased Kyphosis L-Spine Posture Decreased Lordosis Scapula Posture (L) Protracted,(R) Protracted Arm Posture (L) Internally Rotated,(R) Internally Rotated Pelvis Posture (L) Rotated Anterior,(R) Rotated Anterior Hip Posture (L) Flexed,(R) Flexed Knee Posture (L) Excess Flexion,(R) Excess Flexion Ankle/Foot Posture (L) Forefoot Eversion,(R) Forefoot Eversion Palpation Assessment Location bilateral cervical paraspinals, UT Palpation Findings Soft Tissue Tightness,Muscle Guarding,Tenderness diana lumbar paraspinals Palpation Findings Soft Tissue Tightness,Muscle Guarding,Tenderness Palpation Details tight diana, right greater than left PT-OP-K Range of Motion Start: 01/14/21 08:36 Freq: Status: Active Protocol: Document 01/17/21 14:31 [facility] (Rec: 01/17/21 16:09 [facility] [id number]) Cervical Spine Range of Motion Cervical Spine Active Degrees Testing Position Sitting Flexion 58 Extension 5 Rotation Left 27 Rotation Right 25 Lateral Flexion Left 14 Lateral Flexion Right 17 ROM Limitations Soft Tissue Tightness,Bony Restriction,Pain Lumbar Spine Range of Motion Lumbar Spine Active Degrees Flexion 20 Extension 0 Rotation Left 15 Rotation Right 15 Lateral Flexion Left 25 Lateral Flexion Right 25 Comments -10 deg ext with c/o increased pain Hip Goniometric Range of Motion Hip Measured in Degrees Left Flexion w/Knee Flexed 105 Straight Leg Raise 45 Internal Rotation 25 External Rotation 70 Right Flexion w/Knee Flexed 110 Straight Leg Raise 45 Internal Rotation 15 External Rotation 20 Hip ROM Limitations Comments -5 diana hip ext PT-OP-L Special Tests Start: 01/14/21 08:36 Freq: Status: Active Protocol: Document 01/17/21 14:31 [facility] (Rec: 01/17/21 16:09 [facility] [id number]) Special Tests Lumbar Spine Special Tests Manual Traction Test Results positive for increasing pain Horacio Test Results positive for hip flexor tightness diana Straight Leg Raise Test Results positive for muscle tightness not radicular pain Compression Test Results positive right Comments pain radiating to right posterior knee Hip Special Tests Piriformis Test Results positive right Scour Test Test Results negative diana PT-OP-M Strength Start: 01/14/21 08:36 Freq: Status: Active Protocol: Document 01/17/21 14:31 [facility] (Rec: 01/17/21 16:09 [facility] [id number]) Cervical Spine Strength Cervical Spine Manual Muscle Testing Flexion (C1-2) 4 Good Extension 4- Good- Rotation Left 4 Good Rotation Right 4 Good Lateral Flexion Left (C3) 4 Good Lateral Flexion Right (C3) 4 Good Trunk Strength Trunk Manual Muscle Testing Flexion 3+ Fair+ Extension 3+ Fair+ Rotation Left 4- Good- Rotation Right 4- Good- Lateral Flexion Left 4- Good- Lateral Flexion Right 4- Good- Shoulder Strength Shoulder Manual Muscle Testing diana Flexion 4 Good Extension 4- Good- External Rotation 4- Good- Internal Rotation 4- Good- Elbow/Forearm Strength Elbow and Forearm Manual Muscle Testing diana Flexion (C6) 4 Good Extension (C7) 4 Good PT-OP-Q Treatments Start: 01/14/21 08:36 Freq: Status: Active Protocol: Document 04/17/21 12:56 [facility] (Rec: 04/17/21 13:42 [facility] [id number]) Cardio Equipment Recumbent Stepper (Sci-Fit) Duration (Minutes) 10 Resistance 2.0 Seat Position 15 Gym Equipment Shuttle Recovery Unilateral Squats Resistance 50 Shuttle Recovery Platform Stable Reps/Time 10x2 Bilateral Squats Resistance 75 Shuttle Recovery Platform Stable Reps/Time 10x2 Manual Therapy Treatment Soft Tissue Mobilization lumbar paraspinals, piriformis Mobilization Type Myofascial Release,Rolling, Strumming Intensity/Depth Moderate Body Position Sitting Taping 1 Body Location bilateral lumbar paraspinals Treatment Focus inhibition, pain reduction Type of Tape kinesiotape Skin Inspection intact Comments paper off tension PT-OP-R Modalities Start: 01/14/21 08:36 Freq: Status: Active Protocol: Document 04/17/21 12:56 [facility] (Rec: 04/17/21 13:42 [facility] [id number]) Electric Stimulation Electric Stimulation Interferential Current (IFC) Body Location bilateral lumbar paraspinals Duration (Minutes) 15 Target/Sweep Sweep High/Low High Patient Position Sitting Combined With Heat/Cold Hot Pack Ultrasound Therapy Treatment Back Treatment Duration (minutes) 8 Patient Position Sitting Coupling Medium Ultrasound Gel Frequency Setting (mHz) 1 Mode Setting Continuous Duty Cycle 100% Intensity Setting (w/cm2) 1.4 Comments bilateral lumbar paraspinals PT-OP-T Assessment and Plan Start: 01/14/21 08:36 Freq: Status: Active Protocol: Document 04/17/21 12:56 [facility] (Rec: 04/17/21 13:42 [facility] [id number]) Physical Therapy Assessment Goals range of motion Impairment stiffness throughout patient's trunk and hips Short Term Goal (STG) Instruct in HEP to address soft tissue mobility impairments STG Duration goal met Alf Goal (LTG) Patient to demonstrate improvements in overall flexibility throughout trunk and hips and be safe and independent with HEP and aquatic exercise program for long-term fitness and pain management. 04/17/21: has not yet started aquatic exercise program; reports he plans to next week. He has had good compliance to HEP. LTG Duration 06/16/21 Strength Impairment weakness core and hips Short Term Goal (STG) Patient to begin land and aquatic exercise to address impairments in core and hip muscle strength with good tolerance 03/24/21: goal progress, hasn't started aquatic exercise yet 04/17/21: to start aquatic exercise next week. STG Duration 05/01/21 Cherry Sorter Goal (LTG) Improve strength to at least 4 +/5 throughout trunk and LE's with patient demonstrating safety and independence with HEP and aquatic exercise program for long-term fitness and pain management. 03/21/21: some goal progress 04/17/21: good goal progress, strength improved to 4/5 except hip extension 4-/5 LTG Duration 06/16/21 Pain Impairment Pain level 7/10 diana lumbar spine and 6/10 diana cervical spine Short Term Goal (STG) Decrease pain to no greater than 5/10 09/07/19: goal progress, 6/03/21/21: pain level variable, still up to 8/10 at times, more often recently at 4-5/10 04/17/21: pain varies from 2-8/ 10 lumbar spine, 2 to 4/10 right thigh STG Duration 05/08/21 Alf Goal (LTG) Decrease pain to no greater than 3/10 04/17/21: goal progress as above LTG Duration 06/16/21 Gait Impairment Requires use of walker, unable to walk community distances Short Term Goal (STG) Patient able to walk community distances with FWW with with minimal to no increase in pain. 03/21/21: patient ambulated from parking lot to waiting room, then into PT gym without using assistive device. Patient reports it is harder and he feels more pain, but wants to be able to do. Wants to go golfing again. 04/17/21: has played a couple rounds of golf without reporting increase in pain, as long as he stands only briefly to hit ball, then sits back in cart. STG Duration 04/18/21 Alf Goal (LTG) Patient able to ambulate with cane device for short community distances 03/21/21: only tolerates very short community distances (ie 100' or less), 04/17/21: using primarily cane, occasionally able to ambulate without device at this time, and demonstrating increase in speed LTG Duration 06/16/21 Activity tolerance Impairment Oswestry disability index score 48% Short Term Goal (STG) Decrease Oswestry score to no greater than 38% as measure of improved patient tolerance for usual daily activities 09/07/19: 52% 03/21/21: decreased to 44%, goal progress 04/17/21:decreased to 38% STG Duration 05/01/21 Cherry Sorter Goal (LTG) Decrease Oswestry score to no greater than 25% as measure of improved activity tolerance LTG Duration 06/16/21 Assessment Summary Assessment Patient has progressed from walking with front wheeled walker to walking with a straight cane, now uses straight cane at times, but has also come to PT using no device the past 2 sessions ambulating with increased speed. Improving exercise tolerance. Reports decreased pain with PT, still low standing tolerance though has been able to golf a few times without an increase in pain; this is one of the few enjoyable things patient able to do. Physical Therapy Plan Frequency and Duration Frequency of Treatment 2x/Week Duration of Treatment 8 weeks Plan of Care Start Date 04/17/21 Plan of Care End Date 06/16/21 Therapeutic Interventions Therapeutic Interventions Aquatic Therapy,Gait Training, Home Exercise Program,Manual Therapy,Neuromuscular Re- education,Patient/Caregiver Education,Self-Care/Home Management,Soft Tissue Mobilization,Taping, Therapeutic Activities, Therapeutic Exercises Modalities Electric Stimulation,Hot Packs ,Infrared Therapy,Ultrasound Next Visit Focus/Plan Next Note Type Treatment Note Next Visit Plan Continue PT to progress functional strengthening and core stabilization, flexibility. Modalities and manual therapy as indicated for pain management.
--- NOTE | 2021-05-16 16:31 | PT.OTN ---
Current Diagnoses Chronic pain syndrome (05/16/21) Radiculopathy, lumbar region (05/16/21) Cervicalgia (05/16/21) Iliotibial band syndrome, right leg (05/16/21) Arthrodesis status (05/16/21) Other specified postprocedural states (05/16/21) Physical Therapy Treatment Note PT-OP-A Visit Information Start: 01/14/21 08:36 Freq: Status: Active Protocol: Document 05/16/21 15:23 [facility] (Rec: 05/16/21 16:03 [facility] [id number]) Out-Patient Physical Therapy Visit Information Visit Information Visit Type Treatment Note Visit Start Time 15:15 Visit Stop Time 16:16 Total Visit Minutes 61 Visit Number 17 Precautions Precautions history of fusion c/s and l/s with metal. PT-OP-B Current Condition Start: 01/14/21 08:36 Freq: Status: Active Protocol: Document 01/17/21 14:31 [facility] (Rec: 01/17/21 16:09 [facility] [id number]) Current Condition History of Current Condition Onset Date 1 year Current Complaints worsening LBP and neck pain and weakness arms and legs. History of Current Condition neck and back pain progressisvely worsening with decreased activity tolerance. Unable to golf any longer. Tried to drive to [place] 2018, couldn't make it due to pain. Last year coming back from [place] things deteriorated more. but was able to make it back. Numbness and tingling occasionally in hands. States legs give out occasionally and also spasm; states leg spasm in bed hurt his back a few nights ago. Uses walker to go any distance otherwise uses cane or furniture at home . Not currently doing any exercises, can walk about 75' at a time. Stopped doing aquatic exercise due to pool closure as result of Covid-19 and hasn't restarted. Admits to feeling some depressed/ disappointed. States Dr. Tirado recomended he look at going to assisted living and he plans to check out a few facilities in [place] close to his daughter. Prior Treatments and Tests No recent MRI or x-rays chest x-ray 6 months ago negative, states heart and lungs stable. Saw Dr. Littlejohn and 1 year ago; state nothing can be done Seeing Dr. Tirado: having osteopathic treatments; seems to help a little Treatment Goals Patient/Caregiver Goals Decrease pain, improve activity tolerance and function Prior Functional Status Baseline Function- ADL's Modified Independent Baseline Function- Mobility Modified Independent Baseline Function- Gait independent with device community distances Baseline Function- Work/School retired Baseline Function- Recreation/Hobbies restoring cars, golf Current Functional Impairments (Reported) Functional Limitations- ADL's increased time, more painful Functional Limitations- Mobility/Gait 75' with FWW max Functional Limitations- Recreation/ unable Hobbies PT-OP-C Subjective Start: 01/14/21 08:36 Freq: Status: Active Protocol: Document 05/16/21 15:23 [facility] (Rec: 05/16/21 16:03 [facility] [id number]) OP-PT Subjective Patient Comments Patient Comments tired possibly due to side effects from new lung medication. Also having some dizziness, not sure if Meniere 's or due to medication side- effects. Went to see 3 nursing homes in [place] for consideration. Patient denies depression but does admit to frustration with his decline in function. PT-OP-G Mobility & Gait Start: 01/14/21 08:36 Freq: Status: Active Protocol: Document 01/17/21 14:31 [facility] (Rec: 01/17/21 16:09 [facility] [id number]) OP Gait Assessment Gait Gait Assistance Required: Independent Distance (Feet) 75 Gait Deviations General Gait Pattern Decreased Stride Length, Decreased Feet Clearance, Flexed Trunk Factors Limiting Gait Function Factors Limiting Gait Function Decreased Activity Tolerance, Decreased Strength,Pain PT-OP-J Posture/Palpation/Skin Start: 01/14/21 08:36 Freq: Status: Active Protocol: Document 01/17/21 14:31 [facility] (Rec: 01/17/21 16:09 [facility] [id number]) Posture Evaluation Position Standing Head/C-Spine Posture Forward Head T-Spine Posture Increased Kyphosis L-Spine Posture Decreased Lordosis Scapula Posture (L) Protracted,(R) Protracted Arm Posture (L) Internally Rotated,(R) Internally Rotated Pelvis Posture (L) Rotated Anterior,(R) Rotated Anterior Hip Posture (L) Flexed,(R) Flexed Knee Posture (L) Excess Flexion,(R) Excess Flexion Ankle/Foot Posture (L) Forefoot Eversion,(R) Forefoot Eversion Palpation Assessment Location bilateral cervical paraspinals, UT Palpation Findings Soft Tissue Tightness,Muscle Guarding,Tenderness diana lumbar paraspinals Palpation Findings Soft Tissue Tightness,Muscle Guarding,Tenderness Palpation Details tight diana, right greater than left PT-OP-K Range of Motion Start: 01/14/21 08:36 Freq: Status: Active Protocol: Document 01/17/21 14:31 [facility] (Rec: 01/17/21 16:09 [facility] [id number]) Cervical Spine Range of Motion Cervical Spine Active Degrees Testing Position Sitting Flexion 58 Extension 5 Rotation Left 27 Rotation Right 25 Lateral Flexion Left 14 Lateral Flexion Right 17 ROM Limitations Soft Tissue Tightness,Bony Restriction,Pain Lumbar Spine Range of Motion Lumbar Spine Active Degrees Flexion 20 Extension 0 Rotation Left 15 Rotation Right 15 Lateral Flexion Left 25 Lateral Flexion Right 25 Comments -10 deg ext with c/o increased pain Hip Goniometric Range of Motion Hip Left Flexion w/Knee Flexed 105 Straight Leg Raise 45 Internal Rotation 25 External Rotation 70 Right Flexion w/Knee Flexed 110 Straight Leg Raise 45 Internal Rotation 15 External Rotation 20 Hip ROM Limitations Comments -5 diana hip ext PT-OP-L Special Tests Start: 01/14/21 08:36 Freq: Status: Active Protocol: Document 01/17/21 14:31 [facility] (Rec: 01/17/21 16:09 [facility] [id number]) Special Tests Lumbar Spine Special Tests Manual Traction Test Results positive for increasing pain Horacio Test Results positive for hip flexor tightness diana Straight Leg Raise Test Results positive for muscle tightness not radicular pain Compression Test Results positive right Comments pain radiating to right posterior knee Hip Special Tests Piriformis Test Results positive right Scour Test Test Results negative diana PT-OP-M Strength Start: 01/14/21 08:36 Freq: Status: Active Protocol: Document 01/17/21 14:31 [facility] (Rec: 01/17/21 16:09 [facility] [id number]) Cervical Spine Strength Cervical Spine Manual Muscle Testing Flexion (C1-2) 4 Good Extension 4- Good- Rotation Left 4 Good Rotation Right 4 Good Lateral Flexion Left (C3) 4 Good Lateral Flexion Right (C3) 4 Good Trunk Strength Trunk Manual Muscle Testing Flexion 3+ Fair+ Extension 3+ Fair+ Rotation Left 4- Good- Rotation Right 4- Good- Lateral Flexion Left 4- Good- Lateral Flexion Right 4- Good- Shoulder Strength Shoulder Manual Muscle Testing diana Flexion 4 Good Extension 4- Good- External Rotation 4- Good- Internal Rotation 4- Good- Elbow/Forearm Strength Elbow and Forearm Manual Muscle Testing diana Flexion (C6) 4 Good Extension (C7) 4 Good PT-OP-Q Treatments Start: 01/14/21 08:36 Freq: Status: Active Protocol: Document 05/16/21 15:23 [facility] (Rec: 05/16/21 16:03 [facility] [id number]) Cardio Equipment Recumbent Stepper (Sci-Fit) Duration (Minutes) 10 Resistance 2.0 Seat Position 15 Gym Equipment Shuttle Recovery Unilateral Squats Reps/Time held due to fatigue Bilateral Squats Reps/Time held due to fatigue Therapeutic Exercises Sitting Exercises row, sh ext Comments held due to fatigue Manual Therapy Treatment Soft Tissue Mobilization lumbar paraspinals, piriformis Mobilization Type Myofascial Release,Rolling, Strumming Intensity/Depth Moderate Body Position Sitting Taping 1 Body Location bilateral lumbar paraspinals Treatment Focus inhibition, pain reduction Type of Tape kinesiotape Skin Inspection intact Comments paper off tension PT-OP-R Modalities Start: 01/14/21 08:36 Freq: Status: Active Protocol: Document 04/17/21 12:56 [facility] (Rec: 04/17/21 13:42 [facility] [id number]) Electric Stimulation Electric Stimulation Interferential Current (IFC) Body Location bilateral lumbar paraspinals Duration (Minutes) 15 Target/Sweep Sweep High/Low High Patient Position Sitting Combined With Heat/Cold Hot Pack Ultrasound Therapy Treatment Back Treatment Duration (minutes) 8 Patient Position Sitting Coupling Medium Ultrasound Gel Frequency Setting (mHz) 1 Mode Setting Continuous Duty Cycle 100% Intensity Setting (w/cm2) 1.4 Comments bilateral lumbar paraspinals PT-OP-T Assessment and Plan Start: 01/14/21 08:36 Freq: Status: Active Protocol: Document 05/16/21 15:23 [facility] (Rec: 05/16/21 16:03 [facility] [id number]) Physical Therapy Assessment Goals range of motion Impairment stiffness throughout patient's trunk and hips Short Term Goal (STG) Instruct in HEP to address soft tissue mobility impairments STG Duration goal met [employer] Goal (LTG) Patient to demonstrate improvements in overall flexibility throughout trunk and hips and be safe and independent with HEP and aquatic exercise program for long-term fitness and pain management. 04/17/21: has not yet started aquatic exercise program; reports he plans to next week. He has had good compliance to HEP. LTG Duration 8/29/21 Strength Impairment weakness core and hips Short Term Goal (STG) Patient to begin land and aquatic exercise to address impairments in core and hip muscle strength with good tolerance 03/24/21: goal progress, hasn't started aquatic exercise yet 04/17/21: to start aquatic exercise next week. STG Duration 05/01/21 [employer] Goal (LTG) Improve strength to at least 4 +/5 throughout trunk and LE's with patient demonstrating safety and independence with HEP and aquatic exercise program for long-term fitness and pain management. 03/21/21: some goal progress 04/17/21: good goal progress, strength improved to 4/5 except hip extension 4-/5 LTG Duration 06/16/21 Pain Impairment Pain level 7/10 diana lumbar spine and /10 diana cervical spine Short Term Goal (STG) Decrease pain to no greater than 5/10 09/07/19: goal progress, 6/03/21/21: pain level variable, still up to 8/10 at times, more often recently at 4-5/10 04/17/21: pain varies from 2-8/ 10 lumbar spine, 2 to 4/10 right thigh STG Duration 05/08/21 [employer] Goal (LTG) Decrease pain to no greater than 3/10 04/17/21: goal progress as above LTG Duration 06/16/21 Gait Impairment Requires use of walker, unable to walk community distances Short Term Goal (STG) Patient able to walk community distances with FWW with with minimal to no increase in pain. 03/21/21: patient ambulated from parking lot to waiting room, then into PT gym without using assistive device. Patient reports it is harder and he feels more pain, but wants to be able to do. Wants to go golfing again. 04/17/21: has played a couple rounds of golf without reporting increase in pain, as long as he stands only briefly to hit ball, then sits back in cart. STG Duration 04/18/21 [employer] Goal (LTG) Patient able to ambulate with cane device for short community distances 03/21/21: only tolerates very short community distances (ie 100' or less), 04/17/21: using primarily cane, occasionally able to ambulate without device at this time, and demonstrating increase in speed LTG Duration 06/16/21 Activity tolerance Impairment Oswestry disability index score 48% Short Term Goal (STG) Decrease Oswestry score to no greater than 38% as measure of improved patient tolerance for usual daily activities 09/07/19: 52% 03/21/21: decreased to 44%, goal progress 04/17/21:decreased to 38% STG Duration 05/01/21 [employer] Goal (LTG) Decrease Oswestry score to no greater than 25% as measure of improved activity tolerance LTG Duration 06/16/21 Assessment Summary Assessment Patient more fatigued apparently due to side effects from medication, low exercise tolerance, more time spent on manual techniques to decrease lumbosacral tension and pain. Physical Therapy Plan Frequency and Duration Frequency of Treatment 2x/Week Duration of Treatment 8 weeks Plan of Care Start Date 04/17/21 Plan of Care End Date 06/16/21 Therapeutic Interventions Therapeutic Interventions Aquatic Therapy,Gait Training, Home Exercise Program,Manual Therapy,Neuromuscular Re- education,Patient/Caregiver Education,Self-Care/Home Management,Soft Tissue Mobilization,Taping, Therapeutic Activities, Therapeutic Exercises Modalities Electric Stimulation,Hot Packs ,Infrared Therapy,Ultrasound Next Visit Focus/Plan Next Note Type Treatment Note Next Visit Plan Continue PT to progress functional strengthening and core stabilization, flexibility. Modalities and manual therapy as indicated for pain management pending medical issues and response to medication.
--- NOTE | 2021-05-22 15:38 | PT-OP ANOTE ---
Patient got confused about apointment time, cancelled.
--- NOTE | 2021-05-23 13:46 | PT.OPPN ---
Current Diagnoses Chronic pain syndrome (05/27/21) Radiculopathy, lumbar region (05/27/21) Cervicalgia (05/27/21) Iliotibial band syndrome, right leg (05/27/21) Arthrodesis status (05/27/21) Other specified postprocedural states (05/27/21) Physical Therapy Progress Note PT-OP-A Visit Information Start: 01/14/21 08:36 Freq: Status: Active Protocol: Document 05/27/21 12:55 [facility] (Rec: 05/27/21 13:45 [facility] [id number]) Out-Patient Physical Therapy Visit Information Visit Information Visit Type Treatment Note Visit Start Time 13:00 Visit Stop Time 13:56 Total Visit Minutes 56 Visit Number 18 Precautions Precautions history of fusion c/s and l/s with metal. PT-OP-B Current Condition Start: 01/14/21 08:36 Freq: Status: Active Protocol: Document 01/17/21 14:31 [facility] (Rec: 01/17/21 16:09 [facility] [id number]) Current Condition History of Current Condition Onset Date 1 year Current Complaints worsening LBP and neck pain and weakness arms and legs. History of Current Condition neck and back pain progressisvely worsening with decreased activity tolerance. Unable to golf any longer. Tried to drive to [place] 2018, couldn't make it due to pain. Last year coming back from [place] things deteriorated more. but was able to make it back. Numbness and tingling occasionally in hands. States legs give out occasionally and also spasm; states leg spasm in bed hurt his back a few nights ago. Uses walker to go any distance otherwise uses cane or furniture at home . Not currently doing any exercises, can walk about 75' at a time. Stopped doing aquatic exercise due to pool closure as result of Covid-19 and hasn't restarted. Admits to feeling some depressed/ disappointed. States Dr. Tirado recomended he look at going to assisted living and he plans to check out a few facilities in [place] close to his daughter. Prior Treatments and Tests No recent MRI or x-rays chest x-ray 6 months ago negative, states heart and lungs stable. Saw Dr. Littlejohn and 1 year ago; state nothing can be done Seeing Dr. Tirado: having osteopathic treatments; seems to help a little Treatment Goals Patient/Caregiver Goals Decrease pain, improve activity tolerance and function Prior Functional Status Baseline Function- ADL's Modified Independent Baseline Function- Mobility Modified Independent Baseline Function- Gait independent with device community distances Baseline Function- Work/School retired Baseline Function- Recreation/Hobbies restoring cars, golf Current Functional Impairments (Reported) Functional Limitations- ADL's increased time, more painful Functional Limitations- Mobility/Gait 75' with FWW max Functional Limitations- Recreation/ unable Hobbies PT-OP-C Subjective Start: 01/14/21 08:36 Freq: Status: Active Protocol: Document 05/27/21 12:55 [facility] (Rec: 05/27/21 13:45 [facility] [id number]) OP-PT Subjective Patient Comments Patient Comments Not doing very well with lung disease and /or medication; more difficult to breath, nausea, dizziness. Having to increase dosage of medications each week, still not at max. Not driving self; friends driving him. No help at home at this time, but can't do much of anything outside the home. Does report occasional interludes of feeling better . PT-OP-G Mobility & Gait Start: 01/14/21 08:36 Freq: Status: Active Protocol: Document 01/17/21 14:31 [facility] (Rec: 01/17/21 16:09 [facility] [id number]) OP Gait Assessment Gait Gait Assistance Required: Independent Distance (Feet) 75 Gait Deviations General Gait Pattern Decreased Stride Length, Decreased Feet Clearance, Flexed Trunk Factors Limiting Gait Function Factors Limiting Gait Function Decreased Activity Tolerance, Decreased Strength,Pain PT-OP-J Posture/Palpation/Skin Start: 01/14/21 08:36 Freq: Status: Active Protocol: Document 01/17/21 14:31 [facility] (Rec: 01/17/21 16:09 [facility] [id number]) Posture Evaluation Position Standing Head/C-Spine Posture Forward Head T-Spine Posture Increased Kyphosis L-Spine Posture Decreased Lordosis Scapula Posture (L) Protracted,(R) Protracted Arm Posture (L) Internally Rotated,(R) Internally Rotated Pelvis Posture (L) Rotated Anterior,(R) Rotated Anterior Hip Posture (L) Flexed,(R) Flexed Knee Posture (L) Excess Flexion,(R) Excess Flexion Ankle/Foot Posture (L) Forefoot Eversion,(R) Forefoot Eversion Palpation Assessment Location bilateral cervical paraspinals, UT Palpation Findings Soft Tissue Tightness,Muscle Guarding,Tenderness diana lumbar paraspinals Palpation Findings Soft Tissue Tightness,Muscle Guarding,Tenderness Palpation Details tight diana, right greater than left PT-OP-K Range of Motion Start: 01/14/21 08:36 Freq: Status: Active Protocol: Document 01/17/21 14:31 [facility] (Rec: 01/17/21 16:09 [facility] [id number]) Cervical Spine Range of Motion Cervical Spine Active Degrees Testing Position Sitting Flexion 58 Extension 5 Rotation Left 27 Rotation Right 25 Lateral Flexion Left 14 Lateral Flexion Right 17 ROM Limitations Soft Tissue Tightness,Bony Restriction,Pain Lumbar Spine Range of Motion Lumbar Spine Active Degrees Flexion 20 Extension 0 Rotation Left 15 Rotation Right 15 Lateral Flexion Left 25 Lateral Flexion Right 25 Comments -10 deg ext with c/o increased pain Hip Goniometric Range of Motion Hip Measured in Degrees Left Flexion w/Knee Flexed 105 Straight Leg Raise 45 Internal Rotation 25 External Rotation 70 Right Flexion w/Knee Flexed 110 Straight Leg Raise 45 Internal Rotation 15 External Rotation 20 Hip ROM Limitations Comments -5 diana hip ext PT-OP-L Special Tests Start: 01/14/21 08:36 Freq: Status: Active Protocol: Document 01/17/21 14:31 [facility] (Rec: 01/17/21 16:09 [facility] [id number]) Special Tests Lumbar Spine Special Tests Manual Traction Test Results positive for increasing pain Horacio Test Results positive for hip flexor tightness diana Straight Leg Raise Test Results positive for muscle tightness not radicular pain Compression Test Results positive right Comments pain radiating to right posterior knee Hip Special Tests Piriformis Test Results positive right Scour Test Test Results negative diana PT-OP-M Strength Start: 01/14/21 08:36 Freq: Status: Active Protocol: Document 01/17/21 14:31 [facility] (Rec: 01/17/21 16:09 [facility] [id number]) Cervical Spine Strength Cervical Spine Manual Muscle Testing Flexion (C1-2) 4 Good Extension 4- Good- Rotation Left 4 Good Rotation Right 4 Good Lateral Flexion Left (C3) 4 Good Lateral Flexion Right (C3) 4 Good Trunk Strength Trunk Manual Muscle Testing Flexion 3+ Fair+ Extension 3+ Fair+ Rotation Left 4- Good- Rotation Right 4- Good- Lateral Flexion Left 4- Good- Lateral Flexion Right 4- Good- Shoulder Strength Shoulder Manual Muscle Testing diana Flexion 4 Good Extension 4- Good- External Rotation 4- Good- Internal Rotation 4- Good- Elbow/Forearm Strength Elbow and Forearm Manual Muscle Testing diana Flexion (C6) 4 Good Extension (C7) 4 Good PT-OP-T Assessment and Plan Start: 01/14/21 08:36 Freq: Status: Active Protocol: Document 05/27/21 12:55 [facility] (Rec: 05/27/21 13:45 [facility] [id number]) Physical Therapy Assessment Evaluation Complexity Number of Personal Factors/Comorbidities 3 or More Number of Body Systems Impaired 3 Clinical Presentation at Evaluation Evolving Impairments Impairments Activity Tolerance,Gait,Pain, ROM,Strength Goals range of motion Impairment stiffness throughout patient's trunk and hips Short Term Goal (STG) Instruct in HEP to address soft tissue mobility impairments STG Duration goal met Detention Goal (LTG) Patient to demonstrate improvements in overall flexibility throughout trunk and hips and be safe and independent with HEP and aquatic exercise program for long-term fitness and pain management. 04/17/21: has not yet started aquatic exercise program; reports he plans to next week. He has had good compliance to HEP. LTG Duration 06/16/21 Strength Impairment weakness core and hips Short Term Goal (STG) Patient to begin land and aquatic exercise to address impairments in core and hip muscle strength with good tolerance 03/24/21: goal progress, hasn't started aquatic exercise yet 04/17/21: to start aquatic exercise next week. STG Duration 05/01/21 Interventional Radiology Technologist Goal (LTG) Improve strength to at least 4 +/5 throughout trunk and LE's with patient demonstrating safety and independence with HEP and aquatic exercise program for long-term fitness and pain management. 03/21/21: some goal progress 04/17/21: good goal progress, strength improved to 4/5 except hip extension 4-/5 LTG Duration 06/16/21 Pain Impairment Pain level 7/10 diana lumbar spine and 6/10 diana cervical spine Short Term Goal (STG) Decrease pain to no greater than 5/10 09/07/19: goal progress, 6/10 03/21/21: pain level variable, still up to 8/10 at times, more often recently at 4-5/10 04/17/21: pain varies from 2-8/ 10 lumbar spine, 2 to 4/10 right thigh STG Duration 05/08/21 Interventional Radiology Technologist Goal (LTG) Decrease pain to no greater than 3/10 04/17/21: goal progress as above LTG Duration 06/16/21 Gait Impairment Requires use of walker, unable to walk community distances Short Term Goal (STG) Patient able to walk community distances with FWW with with minimal to no increase in pain. 03/21/21: patient ambulated from parking lot to waiting room, then into PT gym without using assistive device. Patient reports it is harder and he feels more pain, but wants to be able to do. Wants to go golfing again. 04/17/21: has played a couple rounds of golf without reporting increase in pain, as long as he stands only briefly to hit ball, then sits back in cart. STG Duration 04/18/21 Detention Goal (LTG) Patient able to ambulate with cane device for short community distances 03/21/21: only tolerates very short community distances (ie 100' or less), 04/17/21: using primarily cane, occasionally able to ambulate without device at this time, and demonstrating increase in speed LTG Duration 06/16/21 Activity tolerance Impairment Oswestry disability index score 48% Short Term Goal (STG) Decrease Oswestry score to no greater than 38% as measure of improved patient tolerance for usual daily activities 09/07/19: 52% 03/21/21: decreased to 44%, goal progress 04/17/21:decreased to 38% STG Duration 05/01/21 Detention Goal (LTG) Decrease Oswestry score to no greater than 25% as measure of improved activity tolerance LTG Duration 06/16/21 Progress Towards Goals Progress Towards Goals Slow Progress due to Activity Tolerance,Slow Progress due to Attendance Issues Progress Comments Jori is making some progress toward goals though his function is still significantly limited due to pain with standing and walking . His forward bent posture is highly contributory to this but he has difficult with correction of his posture. We recently initiate aquatic therapy and he reports good benefit from this treatment; minimal to no pain while in pool, able to tolerate 45 min of gait and ther ex in vertical position, and reporting decrease in pain for several hours afterward. He has requested increased frequency of aquatic therapy, in combination with land-based PT. [ End ] Assessment Summary Assessment Patient more fatigued apparently due to side effects from medication, low exercise tolerance, more time spent on manual techniques to decrease lumbosacral tension and pain. Physical Therapy Plan Frequency and Duration Frequency of Treatment 2x/Week Duration of Treatment 8 weeks Plan of Care Start Date 04/17/21 Plan of Care End Date 06/16/21 Therapeutic Interventions Therapeutic Interventions Aquatic Therapy,Gait Training, Home Exercise Program,Manual Therapy,Neuromuscular Re- education,Patient/Caregiver Education,Self-Care/Home Management,Soft Tissue Mobilization,Taping, Therapeutic Activities, Therapeutic Exercises Modalities Electric Stimulation,Hot Packs ,Infrared Therapy,Ultrasound Next Visit Focus/Plan Next Note Type Treatment Note Next Visit Plan Continue PT to progress functional strengthening and core stabilization, flexibility. Modalities and manual therapy as indicated for pain management pending medical issues and response to medication.
--- NOTE | 2021-05-27 16:59 | PT.OTN ---
Current Diagnoses Chronic pain syndrome (05/27/21) Radiculopathy, lumbar region (05/27/21) Cervicalgia (05/27/21) Iliotibial band syndrome, right leg (05/27/21) Arthrodesis status (05/27/21) Other specified postprocedural states (05/27/21) Physical Therapy Treatment Note PT-OP-A Visit Information Start: 01/14/21 08:36 Freq: Status: Active Protocol: Document 05/27/21 12:55 [facility] (Rec: 05/27/21 13:45 [facility] [id number]) Out-Patient Physical Therapy Visit Information Visit Information Visit Type Treatment Note Visit Start Time 13:00 Visit Stop Time 13:56 Total Visit Minutes 56 Visit Number 18 Precautions Precautions history of fusion c/s and l/s with metal. PT-OP-B Current Condition Start: 01/14/21 08:36 Freq: Status: Active Protocol: Document 01/17/21 14:31 [facility] (Rec: 01/17/21 16:09 [facility] [id number]) Current Condition History of Current Condition Onset Date 1 year Current Complaints worsening LBP and neck pain and weakness arms and legs. History of Current Condition neck and back pain progressisvely worsening with decreased activity tolerance. Unable to golf any longer. Tried to drive to [place] 2018, couldn't make it due to pain. Last year coming back from [place] things deteriorated more. but was able to make it back. Numbness and tingling occasionally in hands. States legs give out occasionally and also spasm; states leg spasm in bed hurt his back a few nights ago. Uses walker to go any distance otherwise uses cane or furniture at home . Not currently doing any exercises, can walk about 75' at a time. Stopped doing aquatic exercise due to pool closure as result of Covid-19 and hasn't restarted. Admits to feeling some depressed/ disappointed. States Dr. Tirado recomended he look at going to assisted living and he plans to check out a few facilities in [place] close to his daughter. Prior Treatments and Tests No recent MRI or x-rays chest x-ray 6 months ago negative, states heart and lungs stable. Saw Dr. Littlejohn and 1 year ago; state nothing can be done Seeing Dr. Tirado: having osteopathic treatments; seems to help a little Treatment Goals Patient/Caregiver Goals Decrease pain, improve activity tolerance and function Prior Functional Status Baseline Function- ADL's Modified Independent Baseline Function- Mobility Modified Independent Baseline Function- Gait independent with device community distances Baseline Function- Work/School retired Baseline Function- Recreation/Hobbies restoring cars, golf Current Functional Impairments (Reported) Functional Limitations- ADL's increased time, more painful Functional Limitations- Mobility/Gait 75' with FWW max Functional Limitations- Recreation/ unable Hobbies PT-OP-C Subjective Start: 01/14/21 08:36 Freq: Status: Active Protocol: Document 05/27/21 12:55 [facility] (Rec: 05/27/21 13:45 [facility] [id number]) OP-PT Subjective Patient Comments Patient Comments Not doing very well with lung disease and /or medication; more difficult to breath, nausea, dizziness. Having to increase dosage of medications each week, still not at max. Not driving self; friends driving him. No help at home at this time, but can't do much of anything outside the home. Does report occasional interludes of feeling better . PT-OP-G Mobility & Gait Start: 01/14/21 08:36 Freq: Status: Active Protocol: Document 01/17/21 14:31 [facility] (Rec: 01/17/21 16:09 [facility] [id number]) OP Gait Assessment Gait Gait Assistance Required: Independent Distance (Feet) 75 Gait Deviations General Gait Pattern Decreased Stride Length, Decreased Feet Clearance, Flexed Trunk Factors Limiting Gait Function Factors Limiting Gait Function Decreased Activity Tolerance, Decreased Strength,Pain PT-OP-J Posture/Palpation/Skin Start: 01/14/21 08:36 Freq: Status: Active Protocol: Document 01/17/21 14:31 [facility] (Rec: 01/17/21 16:09 [facility] [id number]) Posture Evaluation Position Standing Head/C-Spine Posture Forward Head T-Spine Posture Increased Kyphosis L-Spine Posture Decreased Lordosis Scapula Posture (L) Protracted,(R) Protracted Arm Posture (L) Internally Rotated,(R) Internally Rotated Pelvis Posture (L) Rotated Anterior,(R) Rotated Anterior Hip Posture (L) Flexed,(R) Flexed Knee Posture (L) Excess Flexion,(R) Excess Flexion Ankle/Foot Posture (L) Forefoot Eversion,(R) Forefoot Eversion Palpation Assessment Location bilateral cervical paraspinals, UT Palpation Findings Soft Tissue Tightness,Muscle Guarding,Tenderness diana lumbar paraspinals Palpation Findings Soft Tissue Tightness,Muscle Guarding,Tenderness Palpation Details tight diana, right greater than left PT-OP-K Range of Motion Start: 01/14/21 08:36 Freq: Status: Active Protocol: Document 01/17/21 14:31 [facility] (Rec: 01/17/21 16:09 [facility] [id number]) Cervical Spine Range of Motion Cervical Spine Active Degrees Testing Position Sitting Flexion 58 Extension 5 Rotation Left 27 Rotation Right 25 Lateral Flexion Left 14 Lateral Flexion Right 17 ROM Limitations Soft Tissue Tightness,Bony Restriction,Pain Lumbar Spine Range of Motion Lumbar Spine Active Degrees Flexion 20 Extension 0 Rotation Left 15 Rotation Right 15 Lateral Flexion Left 25 Lateral Flexion Right 25 Comments -10 deg ext with c/o increased pain Hip Goniometric Range of Motion Hip Left Flexion w/Knee Flexed 105 Straight Leg Raise 45 Internal Rotation 25 External Rotation 70 Right Flexion w/Knee Flexed 110 Straight Leg Raise 45 Internal Rotation 15 External Rotation 20 Hip ROM Limitations Comments -5 diana hip ext PT-OP-L Special Tests Start: 01/14/21 08:36 Freq: Status: Active Protocol: Document 01/17/21 14:31 [facility] (Rec: 01/17/21 16:09 [facility] [id number]) Special Tests Lumbar Spine Special Tests Manual Traction Test Results positive for increasing pain Horacio Test Results positive for hip flexor tightness diana Straight Leg Raise Test Results positive for muscle tightness not radicular pain Compression Test Results positive right Comments pain radiating to right posterior knee Hip Special Tests Piriformis Test Results positive right Scour Test Test Results negative diana PT-OP-M Strength Start: 01/14/21 08:36 Freq: Status: Active Protocol: Document 01/17/21 14:31 [facility] (Rec: 01/17/21 16:09 [facility] [id number]) Cervical Spine Strength Cervical Spine Manual Muscle Testing Flexion (C1-2) 4 Good Extension 4- Good- Rotation Left 4 Good Rotation Right 4 Good Lateral Flexion Left (C3) 4 Good Lateral Flexion Right (C3) 4 Good Trunk Strength Trunk Manual Muscle Testing Flexion 3+ Fair+ Extension 3+ Fair+ Rotation Left 4- Good- Rotation Right 4- Good- Lateral Flexion Left 4- Good- Lateral Flexion Right 4- Good- Shoulder Strength Shoulder Manual Muscle Testing diana Flexion 4 Good Extension 4- Good- External Rotation 4- Good- Internal Rotation 4- Good- Elbow/Forearm Strength Elbow and Forearm Manual Muscle Testing diana Flexion (C6) 4 Good Extension (C7) 4 Good PT-OP-Q Treatments Start: 01/14/21 08:36 Freq: Status: Active Protocol: Document 05/27/21 12:55 [facility] (Rec: 05/27/21 13:45 [facility] [id number]) Cardio Equipment Recumbent Stepper (Sci-Fit) Duration (Minutes) 10 Resistance 2.0 Seat Position 15 Manual Therapy Treatment Soft Tissue Mobilization lumbar paraspinals, piriformis Mobilization Type Myofascial Release,Rolling, Strumming Intensity/Depth Moderate Body Position Sitting Taping 1 Body Location bilateral lumbar paraspinals Treatment Focus inhibition, pain reduction Type of Tape kinesiotape Skin Inspection intact Comments paper off tension PT-OP-R Modalities Start: 01/14/21 08:36 Freq: Status: Active Protocol: Document 05/27/21 12:55 [facility] (Rec: 05/27/21 13:45 [facility] [id number]) Electric Stimulation Electric Stimulation Interferential Current (IFC) Body Location bilateral lumbar paraspinals Duration (Minutes) 15 Target/Sweep Sweep High/Low High Patient Position Sitting Combined With Heat/Cold Hot Pack Ultrasound Therapy Treatment Back Treatment Duration (minutes) 8 Patient Position Sitting Coupling Medium Ultrasound Gel Frequency Setting (mHz) 1 Mode Setting Continuous Duty Cycle 100% Intensity Setting (w/cm2) 1.4 Comments bilateral lumbar paraspinals PT-OP-T Assessment and Plan Start: 01/14/21 08:36 Freq: Status: Active Protocol: Document 05/27/21 12:55 [facility] (Rec: 05/27/21 13:45 [facility] [id number]) Physical Therapy Assessment Evaluation Complexity Number of Personal Factors/Comorbidities 3 or More Number of Body Systems Impaired 3 Clinical Presentation at Evaluation Evolving Impairments Impairments Activity Tolerance,Gait,Pain, ROM,Strength Goals range of motion Impairment stiffness throughout patient's trunk and hips Short Term Goal (STG) Instruct in HEP to address soft tissue mobility impairments STG Duration goal met Official Court Reporter Goal (LTG) Patient to demonstrate improvements in overall flexibility throughout trunk and hips and be safe and independent with HEP and aquatic exercise program for long-term fitness and pain management. 04/17/21: has not yet started aquatic exercise program; reports he plans to next week. He has had good compliance to HEP. LTG Duration 06/16/21 Strength Impairment weakness core and hips Short Term Goal (STG) Patient to begin land and aquatic exercise to address impairments in core and hip muscle strength with good tolerance 03/24/21: goal progress, hasn't started aquatic exercise yet 04/17/21: to start aquatic exercise next week. STG Duration 05/01/21 [facility] Goal (LTG) Improve strength to at least 4 +/5 throughout trunk and LE's with patient demonstrating safety and independence with HEP and aquatic exercise program for long-term fitness and pain management. 03/21/21: some goal progress 04/17/21: good goal progress, strength improved to 4/5 except hip extension 4-/5 LTG Duration 06/16/21 Pain Impairment Pain level 7/10 diana lumbar spine and /10 diana cervical spine Short Term Goal (STG) Decrease pain to no greater than 5/10 09/07/19: goal progress, 03/2803/21/21: pain level variable, still up to 8/10 at times, more often recently at 4-5/10 04/17/21: pain varies from 2-8/ 10 lumbar spine, 2 to 4/10 right thigh STG Duration 05/08/21 [facility] Goal (LTG) Decrease pain to no greater than 3/10 04/17/21: goal progress as above LTG Duration 06/16/21 Gait Impairment Requires use of walker, unable to walk community distances Short Term Goal (STG) Patient able to walk community distances with FWW with with minimal to no increase in pain. 03/21/21: patient ambulated from parking lot to waiting room, then into PT gym without using assistive device. Patient reports it is harder and he feels more pain, but wants to be able to do. Wants to go golfing again. 04/17/21: has played a couple rounds of golf without reporting increase in pain, as long as he stands only briefly to hit ball, then sits back in cart. STG Duration 04/18/[address] Goal (LTG) Patient able to ambulate with cane device for short community distances 03/21/21: only tolerates very short community distances (ie 100' or less), 04/17/21: using primarily cane, occasionally able to ambulate without device at this time, and demonstrating increase in speed LTG Duration 06/16/21 Activity tolerance Impairment Oswestry disability index score 48% Short Term Goal (STG) Decrease Oswestry score to no greater than 38% as measure of improved patient tolerance for usual daily activities 09/07/19: 52% 03/21/21: decreased to 44%, goal progress 04/17/21:decreased to 38% STG Duration 05/01/21 [facility] Goal (LTG) Decrease Oswestry score to no greater than 25% as measure of improved activity tolerance LTG Duration 06/16/21 Progress Towards Goals Progress Towards Goals Slow Progress due to Medical Issues Progress Comments [ End ] Assessment Summary Assessment Patient more fatigued apparently due to side effects from medication, low exercise tolerance, more time spent on manual techniques to decrease lumbosacral tension and pain. Patient hopeful his body will adapt to the new medication and he will be able to resume more ther ex. Decreased pain with PT. Physical Therapy Plan Frequency and Duration Frequency of Treatment 2x/Week Duration of Treatment 8 weeks Plan of Care Start Date 04/17/21 Plan of Care End Date 06/16/21 Therapeutic Interventions Therapeutic Interventions Aquatic Therapy,Gait Training, Home Exercise Program,Manual Therapy,Neuromuscular Re- education,Patient/Caregiver Education,Self-Care/Home Management,Soft Tissue Mobilization,Taping, Therapeutic Activities, Therapeutic Exercises Modalities Electric Stimulation,Hot Packs ,Infrared Therapy,Ultrasound Next Visit Focus/Plan Next Note Type Treatment Note Next Visit Plan Continue PT to progress functional strengthening and core stabilization, flexibility. Modalities and manual therapy as indicated for pain management pending medical issues and response to medication.
--- NOTE | 2021-05-29 16:19 | PT.OTN ---
Current Diagnoses Chronic pain syndrome (05/29/21) Radiculopathy, lumbar region (05/29/21) Cervicalgia (05/29/21) Iliotibial band syndrome, right leg (05/29/21) Arthrodesis status (05/29/21) Other specified postprocedural states (05/29/21) Physical Therapy Treatment Note PT-OP-A Visit Information Start: 01/14/21 08:36 Freq: Status: Active Protocol: Document 05/29/21 15:18 [facility] (Rec: 05/29/21 15:39 [facility] [id number]) Out-Patient Physical Therapy Visit Information Visit Information Visit Type Treatment Note Visit Start Time 15:15 Visit Stop Time 16:15 Total Visit Minutes 60 Visit Number 19 Precautions Precautions history of fusion c/s and l/s with metal. PT-OP-B Current Condition Start: 01/14/21 08:36 Freq: Status: Active Protocol: Document 01/17/21 14:31 [facility] (Rec: 01/17/21 16:09 [facility] [id number]) Current Condition History of Current Condition Onset Date 1 year Current Complaints worsening LBP and neck pain and weakness arms and legs. History of Current Condition neck and back pain progressisvely worsening with decreased activity tolerance. Unable to golf any longer. Tried to drive to [place] 2018, couldn't make it due to pain. Last year coming back from [place] things deteriorated more. but was able to make it back. Numbness and tingling occasionally in hands. States legs give out occasionally and also spasm; states leg spasm in bed hurt his back a few nights ago. Uses walker to go any distance otherwise uses cane or furniture at home . Not currently doing any exercises, can walk about 75' at a time. Stopped doing aquatic exercise due to pool closure as result of Covid-19 and hasn't restarted. Admits to feeling some depressed/ disappointed. States Dr. Tirado recomended he look at going to assisted living and he plans to check out a few facilities in [place] close to his daughter. Prior Treatments and Tests No recent MRI or x-rays chest x-ray 6 months ago negative, states heart and lungs stable. Saw Dr. Littlejohn and 1 year ago; state nothing can be done Seeing Dr. Tirado: having osteopathic treatments; seems to help a little Treatment Goals Patient/Caregiver Goals Decrease pain, improve activity tolerance and function Prior Functional Status Baseline Function- ADL's Modified Independent Baseline Function- Mobility Modified Independent Baseline Function- Gait independent with device community distances Baseline Function- Work/School retired Baseline Function- Recreation/Hobbies restoring cars, golf Current Functional Impairments (Reported) Functional Limitations- ADL's increased time, more painful Functional Limitations- Mobility/Gait 75' with FWW max Functional Limitations- Recreation/ unable Hobbies PT-OP-C Subjective Start: 01/14/21 08:36 Freq: Status: Active Protocol: Document 05/29/21 15:18 [facility] (Rec: 05/29/21 15:39 [facility] [id number]) OP-PT Subjective Patient Comments Patient Comments Reports saw doctor yesterday, is hopeful side effects from medication will diminish over the next month as he gets used to it. Using walker today because when up on his feet feels some dizziness. BP has been low, recommended to decrease his dose of Metropolol. Sees doctor again in 1 month, do more tests. Fatigue level high. PT-OP-G Mobility & Gait Start: 01/14/21 08:36 Freq: Status: Active Protocol: Document 01/17/21 14:31 [facility] (Rec: 01/17/21 16:09 [facility] [id number]) OP Gait Assessment Gait Gait Assistance Required: Independent Distance (Feet) 75 Gait Deviations General Gait Pattern Decreased Stride Length, Decreased Feet Clearance, Flexed Trunk Factors Limiting Gait Function Factors Limiting Gait Function Decreased Activity Tolerance, Decreased Strength,Pain PT-OP-J Posture/Palpation/Skin Start: 01/14/21 08:36 Freq: Status: Active Protocol: Document 01/17/21 14:31 [facility] (Rec: 01/17/21 16:09 [facility] [id number]) Posture Evaluation Position Standing Head/C-Spine Posture Forward Head T-Spine Posture Increased Kyphosis L-Spine Posture Decreased Lordosis Scapula Posture (L) Protracted,(R) Protracted Arm Posture (L) Internally Rotated,(R) Internally Rotated Pelvis Posture (L) Rotated Anterior,(R) Rotated Anterior Hip Posture (L) Flexed,(R) Flexed Knee Posture (L) Excess Flexion,(R) Excess Flexion Ankle/Foot Posture (L) Forefoot Eversion,(R) Forefoot Eversion Palpation Assessment Location bilateral cervical paraspinals, UT Palpation Findings Soft Tissue Tightness,Muscle Guarding,Tenderness diana lumbar paraspinals Palpation Findings Soft Tissue Tightness,Muscle Guarding,Tenderness Palpation Details tight diana, right greater than left PT-OP-K Range of Motion Start: 01/14/21 08:36 Freq: Status: Active Protocol: Document 01/17/21 14:31 [facility] (Rec: 01/17/21 16:09 [facility] [id number]) Cervical Spine Range of Motion Cervical Spine Active Degrees Testing Position Sitting Flexion 58 Extension 5 Rotation Left 27 Rotation Right 25 Lateral Flexion Left 14 Lateral Flexion Right 17 ROM Limitations Soft Tissue Tightness,Bony Restriction,Pain Lumbar Spine Range of Motion Lumbar Spine Active Degrees Flexion 20 Extension 0 Rotation Left 15 Rotation Right 15 Lateral Flexion Left 25 Lateral Flexion Right 25 Comments -10 deg ext with c/o increased pain Hip Goniometric Range of Motion Hip Left Flexion w/Knee Flexed 105 Straight Leg Raise 45 Internal Rotation 25 External Rotation 70 Right Flexion w/Knee Flexed 110 Straight Leg Raise 45 Internal Rotation 15 External Rotation 20 Hip ROM Limitations Comments -5 diana hip ext PT-OP-L Special Tests Start: 01/14/21 08:36 Freq: Status: Active Protocol: Document 01/17/21 14:31 [facility] (Rec: 01/17/21 16:09 [facility] [id number]) Special Tests Lumbar Spine Special Tests Manual Traction Test Results positive for increasing pain Horacio Test Results positive for hip flexor tightness diana Straight Leg Raise Test Results positive for muscle tightness not radicular pain Compression Test Results positive right Comments pain radiating to right posterior knee Hip Special Tests Piriformis Test Results positive right Scour Test Test Results negative diana PT-OP-M Strength Start: 01/14/21 08:36 Freq: Status: Active Protocol: Document 01/17/21 14:31 [facility] (Rec: 01/17/21 16:09 [facility] [id number]) Cervical Spine Strength Cervical Spine Manual Muscle Testing Flexion (C1-2) 4 Good Extension 4- Good- Rotation Left 4 Good Rotation Right 4 Good Lateral Flexion Left (C3) 4 Good Lateral Flexion Right (C3) 4 Good Trunk Strength Trunk Manual Muscle Testing Flexion 3+ Fair+ Extension 3+ Fair+ Rotation Left 4- Good- Rotation Right 4- Good- Lateral Flexion Left 4- Good- Lateral Flexion Right 4- Good- Shoulder Strength Shoulder Manual Muscle Testing diana Flexion 4 Good Extension 4- Good- External Rotation 4- Good- Internal Rotation 4- Good- Elbow/Forearm Strength Elbow and Forearm Manual Muscle Testing diana Flexion (C6) 4 Good Extension (C7) 4 Good PT-OP-Q Treatments Start: 01/14/21 08:36 Freq: Status: Active Protocol: Document 05/29/21 15:18 [facility] (Rec: 05/29/21 15:39 [facility] [id number]) Cardio Equipment Recumbent Stepper (Sci-Fit) Duration (Minutes) 10 Resistance 2.0 Seat Position 15 Gym Equipment Shuttle Recovery Unilateral Squats Resistance 37 Reps/Time 10x2 Bilateral Squats Resistance 75 Reps/Time 10x2 Manual Therapy Treatment Soft Tissue Mobilization lumbar paraspinals, piriformis Mobilization Type Myofascial Release,Rolling, Strumming Intensity/Depth Moderate Body Position Sitting Taping 1 Body Location bilateral lumbar paraspinals Treatment Focus inhibition, pain reduction Type of Tape kinesiotape Skin Inspection intact Comments paper off tension PT-OP-R Modalities Start: 01/14/21 08:36 Freq: Status: Active Protocol: Document 05/29/21 15:18 [facility] (Rec: 05/29/21 15:39 [facility] [id number]) Electric Stimulation Electric Stimulation Interferential Current (IFC) Body Location bilateral lumbar paraspinals Duration (Minutes) 15 Target/Sweep Sweep High/Low High Patient Position Sitting Combined With Heat/Cold Hot Pack Ultrasound Therapy Treatment Back Treatment Duration (minutes) 8 Patient Position Sitting Coupling Medium Ultrasound Gel Frequency Setting (mHz) 1 Mode Setting Continuous Duty Cycle 100% Intensity Setting (w/cm2) 1.4 Comments bilateral lumbar paraspinals PT-OP-T Assessment and Plan Start: 01/14/21 08:36 Freq: Status: Active Protocol: Document 05/29/21 15:18 [facility] (Rec: 05/29/21 15:39 [facility] [id number]) Physical Therapy Assessment Goals range of motion Impairment stiffness throughout patient's trunk and hips Short Term Goal (STG) Instruct in HEP to address soft tissue mobility impairments STG Duration goal met Alf Goal (LTG) Patient to demonstrate improvements in overall flexibility throughout trunk and hips and be safe and independent with HEP and aquatic exercise program for long-term fitness and pain management. 04/17/21: has not yet started aquatic exercise program; reports he plans to next week. He has had good compliance to HEP. LTG Duration 06/16/21 Strength Impairment weakness core and hips Short Term Goal (STG) Patient to begin land and aquatic exercise to address impairments in core and hip muscle strength with good tolerance 03/24/21: goal progress, hasn't started aquatic exercise yet 04/17/21: to start aquatic exercise next week. STG Duration 05/01/21 Cytology Teacher Goal (LTG) Improve strength to at least 4 +/5 throughout trunk and LE's with patient demonstrating safety and independence with HEP and aquatic exercise program for long-term fitness and pain management. 03/21/21: some goal progress 04/17/21: good goal progress, strength improved to 4/5 except hip extension 4-/5 LTG Duration 06/16/21 Pain Impairment Pain level 7/10 diana lumbar spine and 6/10 diana cervical spine Short Term Goal (STG) Decrease pain to no greater than 5/10 09/07/19: goal progress, 6/03/21/21: pain level variable, still up to 8/10 at times, more often recently at 4-5/10 04/17/21: pain varies from 2-8/ 10 lumbar spine, 2 to 4/10 right thigh STG Duration 05/08/21 Cytology Teacher Goal (LTG) Decrease pain to no greater than 3/10 04/17/21: goal progress as above LTG Duration 06/16/21 Gait Impairment Requires use of walker, unable to walk community distances Short Term Goal (STG) Patient able to walk community distances with FWW with with minimal to no increase in pain. 03/21/21: patient ambulated from parking lot to waiting room, then into PT gym without using assistive device. Patient reports it is harder and he feels more pain, but wants to be able to do. Wants to go golfing again. 04/17/21: has played a couple rounds of golf without reporting increase in pain, as long as he stands only briefly to hit ball, then sits back in cart. STG Duration 04/18/21 Alf Goal (LTG) Patient able to ambulate with cane device for short community distances 03/21/21: only tolerates very short community distances (ie 100' or less), 04/17/21: using primarily cane, occasionally able to ambulate without device at this time, and demonstrating increase in speed LTG Duration 06/16/21 Activity tolerance Impairment Oswestry disability index score 48% Short Term Goal (STG) Decrease Oswestry score to no greater than 38% as measure of improved patient tolerance for usual daily activities 09/07/19: 52% 03/21/21: decreased to 44%, goal progress 04/17/21:decreased to 38% STG Duration 05/01/21 Cytology Teacher Goal (LTG) Decrease Oswestry score to no greater than 25% as measure of improved activity tolerance LTG Duration 06/16/21 Progress Towards Goals Progress Towards Goals Slow Progress due to Medical Issues Assessment Summary Assessment was able to do shuttle leg press today, though reported feeling weight was higher when was same with dbl legs. Lowered resistance for single leg today due to fatigue. Physical Therapy Plan Frequency and Duration Frequency of Treatment 2x/Week Duration of Treatment 8 weeks Plan of Care Start Date 04/17/21 Plan of Care End Date 06/16/21 Therapeutic Interventions Therapeutic Interventions Aquatic Therapy,Gait Training, Home Exercise Program,Manual Therapy,Neuromuscular Re- education,Patient/Caregiver Education,Self-Care/Home Management,Soft Tissue Mobilization,Taping, Therapeutic Activities, Therapeutic Exercises Modalities Electric Stimulation,Hot Packs ,Infrared Therapy,Ultrasound Next Visit Focus/Plan Next Note Type Progress Note Next Visit Plan Hold for 2 weeks, then resume PT per POC.
--- NOTE | 2021-06-17 17:25 | PT.OTRE ---
Current Diagnoses Chronic pain syndrome (06/17/21) Radiculopathy, lumbar region (06/17/21) Cervicalgia (06/17/21) Iliotibial band syndrome, right leg (06/17/21) Arthrodesis status (06/17/21) Other specified postprocedural states (06/17/21) Past Medical History (Last Reviewed 06/02/21 @ 19:00 by Magy Avina PA-C) Atrial fibrillation (~1993) Bilateral lower extremity edema Bladder cancer BPH (benign prostatic hyperplasia) Cervical somatic dysfunction Cervical spine disease Chronic neck pain Coordination of complex care Coronary artery disease Counseling regarding advanced care planning and goals of care Counseling regarding end of life decision making Excessive cerumen in both ear canals GERD (gastroesophageal reflux disease) History of abdominal aortic aneurysm repair (~2006) Hx of cervical discectomy Hx of coronary artery bypass graft (~1980) Hx of laminectomy (~04/2016) Hx of transurethral resection of prostate Hypertension Hypotension Idiopathic pulmonary fibrosis Iliotibial band syndrome, right leg Increased frequency of urination Increasing shortness of breath Macrocytosis Malaise and fatigue Menieres disease Muscular deconditioning Myocardial infarction (1978) Nausea Night sweats Pelvic somatic dysfunction Restrictive lung disease Rib pain on left side S/P carotid endarterectomy (~1990) Segmental and somatic dysfunction of abdomen and other regions Segmental and somatic dysfunction of lower extremity Segmental and somatic dysfunction of lumbar region Segmental and somatic dysfunction of rib cage Segmental and somatic dysfunction of sacral region Segmental and somatic dysfunction of thoracic region Shortness of breath Somatic dysfunction of lower extremity Thoracic aortic aneurysm Tremor Surgical History (Last Reviewed 06/02/21 @ 19:00 by Magy Avina PA-C) History of abdominal aortic aneurysm repair (~2006) Hx of cervical discectomy Hx of coronary artery bypass graft (~1980) Hx of laminectomy (~04/2016) Hx of transurethral resection of prostate S/P carotid endarterectomy (~1990) Visit Care Team Role Provider Type Shiva Tirado DO Attending Provider Physician Primary Care Provider Referring Provider Specialty: [facility] Address: [address] [place] [address], [id number] Email: Physical Therapy Re-Evaluation PT-OP-A Visit Information Start: 01/14/21 08:36 Freq: Status: Active Protocol: Document 06/17/21 12:54 [facility] (Rec: 06/17/21 13:19 [facility] [id number]) Out-Patient Physical Therapy Visit Information Visit Information Visit Type Treatment Note Visit Start Time 13:00 Visit Stop Time 14:00 Total Visit Minutes 60 Visit Number 20 Precautions Precautions history of fusion c/s and l/s with metal. PT-OP-B Current Condition Start: 01/14/21 08:36 Freq: Status: Active Protocol: Document 01/17/21 14:31 [facility] (Rec: 01/17/21 16:09 [facility] [id number]) Current Condition History of Current Condition Onset Date 1 year Current Complaints worsening LBP and neck pain and weakness arms and legs. History of Current Condition neck and back pain progressisvely worsening with decreased activity tolerance. Unable to golf any longer. Tried to drive to [place] 2018, couldn't make it due to pain. Last year coming back from [place] things deteriorated more. but was able to make it back. Numbness and tingling occasionally in hands. States legs give out occasionally and also spasm; states leg spasm in bed hurt his back a few nights ago. Uses walker to go any distance otherwise uses cane or furniture at home . Not currently doing any exercises, can walk about 75' at a time. Stopped doing aquatic exercise due to pool closure as result of Covid-19 and hasn't restarted. Admits to feeling some depressed/ disappointed. States Dr. Tirado recomended he look at going to assisted living and he plans to check out a few facilities in [place] close to his daughter. Prior Treatments and Tests No recent MRI or x-rays chest x-ray 6 months ago negative, states heart and lungs stable. Saw Dr. Littlejohn and 1 year ago; state nothing can be done Seeing Dr. Tirado: having osteopathic treatments; seems to help a little Treatment Goals Patient/Caregiver Goals Decrease pain, improve activity tolerance and function Prior Functional Status Baseline Function- ADL's Modified Independent Baseline Function- Mobility Modified Independent Baseline Function- Gait independent with device community distances Baseline Function- Work/School retired Baseline Function- Recreation/Hobbies restoring cars, golf Current Functional Impairments (Reported) Functional Limitations- ADL's increased time, more painful Functional Limitations- Mobility/Gait 75' with FWW max Functional Limitations- Recreation/ unable Hobbies PT-OP-C Subjective Start: 01/14/21 08:36 Freq: Status: Active Protocol: Document 06/17/21 12:54 [facility] (Rec: 06/17/21 13:19 [facility] [id number]) OP-PT Subjective Patient Comments Patient Comments Having less side effects from the medication, but still some . Blood pressure has been pretty good about 110/80. Doing theraband and isometric exercises. Patient Questionnaires Oswestry Low Back Index Oswestry Score 40 OP-PT Pain Assessment Pain Assessment Grid Paper Pain Assessment Grid Completed Yes Location bilateral lumbar spine Intensity 8 Description Aching,Burning,Chronic, Cramping,Pressure,Spasm, Tightness Pain Aggravating Factors Activity Pain Alleviating Factors Heat,Medication Comments Pain Comments 2-10, increases with standing and movement, decreases with sitting PT-OP-G Mobility & Gait Start: 01/14/21 08:36 Freq: Status: Active Protocol: Document 01/17/21 14:31 [facility] (Rec: 01/17/21 16:09 [facility] [id number]) OP Gait Assessment Gait Gait Assistance Required: Independent Distance (Feet) 75 Gait Deviations General Gait Pattern Decreased Stride Length, Decreased Feet Clearance, Flexed Trunk Factors Limiting Gait Function Factors Limiting Gait Function Decreased Activity Tolerance, Decreased Strength,Pain PT-OP-J Posture/Palpation/Skin Start: 01/14/21 08:36 Freq: Status: Active Protocol: Document 01/17/21 14:31 [facility] (Rec: 01/17/21 16:09 [facility] [id number]) Posture Evaluation Position Standing Head/C-Spine Posture Forward Head T-Spine Posture Increased Kyphosis L-Spine Posture Decreased Lordosis Scapula Posture (L) Protracted,(R) Protracted Arm Posture (L) Internally Rotated,(R) Internally Rotated Pelvis Posture (L) Rotated Anterior,(R) Rotated Anterior Hip Posture (L) Flexed,(R) Flexed Knee Posture (L) Excess Flexion,(R) Excess Flexion Ankle/Foot Posture (L) Forefoot Eversion,(R) Forefoot Eversion Palpation Assessment Location bilateral cervical paraspinals, UT Palpation Findings Soft Tissue Tightness,Muscle Guarding,Tenderness diana lumbar paraspinals Palpation Findings Soft Tissue Tightness,Muscle Guarding,Tenderness Palpation Details tight diana, right greater than left PT-OP-K Range of Motion Start: 01/14/21 08:36 Freq: Status: Active Protocol: Document 01/17/21 14:31 [facility] (Rec: 01/17/21 16:09 [facility] [id number]) Cervical Spine Range of Motion Cervical Spine Active Degrees Testing Position Sitting Flexion 58 Extension 5 Rotation Left 27 Rotation Right 25 Lateral Flexion Left 14 Lateral Flexion Right 17 ROM Limitations Soft Tissue Tightness,Bony Restriction,Pain Lumbar Spine Range of Motion Lumbar Spine Active Degrees Flexion 20 Extension 0 Rotation Left 15 Rotation Right 15 Lateral Flexion Left 25 Lateral Flexion Right 25 Comments -10 deg ext with c/o increased pain Hip Goniometric Range of Motion Hip Measured in Degrees Left Flexion w/Knee Flexed 105 Straight Leg Raise 45 Internal Rotation 25 External Rotation 70 Right Flexion w/Knee Flexed 110 Straight Leg Raise 45 Internal Rotation 15 External Rotation 20 Hip ROM Limitations Comments -5 diana hip ext PT-OP-L Special Tests Start: 01/14/21 08:36 Freq: Status: Active Protocol: Document 01/17/21 14:31 [facility] (Rec: 01/17/21 16:09 [facility] [id number]) Special Tests Lumbar Spine Special Tests Manual Traction Test Results positive for increasing pain Horacio Test Results positive for hip flexor tightness diana Straight Leg Raise Test Results positive for muscle tightness not radicular pain Compression Test Results positive right Comments pain radiating to right posterior knee Hip Special Tests Piriformis Test Results positive right Scour Test Test Results negative diana PT-OP-M Strength Start: 01/14/21 08:36 Freq: Status: Active Protocol: Document 01/17/21 14:31 [facility] (Rec: 01/17/21 16:09 [facility] [id number]) Cervical Spine Strength Cervical Spine Manual Muscle Testing Flexion (C1-2) 4 Good Extension 4- Good- Rotation Left 4 Good Rotation Right 4 Good Lateral Flexion Left (C3) 4 Good Lateral Flexion Right (C3) 4 Good Trunk Strength Trunk Manual Muscle Testing Flexion 3+ Fair+ Extension 3+ Fair+ Rotation Left 4- Good- Rotation Right 4- Good- Lateral Flexion Left 4- Good- Lateral Flexion Right 4- Good- Shoulder Strength Shoulder Manual Muscle Testing diana Flexion 4 Good Extension 4- Good- External Rotation 4- Good- Internal Rotation 4- Good- Elbow/Forearm Strength Elbow and Forearm Manual Muscle Testing diana Flexion (C6) 4 Good Extension (C7) 4 Good PT-OP-Q Treatments Start: 01/14/21 08:36 Freq: Status: Active Protocol: Document 06/17/21 12:54 [facility] (Rec: 06/17/21 13:19 [facility] [id number]) Cardio Equipment Recumbent Stepper (Sci-Fit) Duration (Minutes) 10 Resistance 2.0 Seat Position 15 Gym Equipment Shuttle Recovery Unilateral Squats Resistance 37 Reps/Time 10x2 Bilateral Squats Resistance 75 Reps/Time 10x2 Manual Therapy Treatment Soft Tissue Mobilization lumbar paraspinals, piriformis Mobilization Type Myofascial Release,Rolling, Strumming Intensity/Depth Moderate Body Position Sitting Taping 1 Body Location bilateral lumbar paraspinals Treatment Focus inhibition, pain reduction Type of Tape kinesiotape Skin Inspection intact Comments paper off tension PT-OP-R Modalities Start: 01/14/21 08:36 Freq: Status: Active Protocol: Document 06/17/21 12:54 [facility] (Rec: 06/17/21 13:19 [facility] [id number]) Electric Stimulation Electric Stimulation Interferential Current (IFC) Body Location bilateral lumbar paraspinals Duration (Minutes) 15 Target/Sweep Sweep High/Low High Patient Position Sitting Combined With Heat/Cold Hot Pack Ultrasound Therapy Treatment Back Treatment Duration (minutes) 8 Patient Position Sitting Coupling Medium Ultrasound Gel Frequency Setting (mHz) 1 Mode Setting Continuous Duty Cycle 100% Intensity Setting (w/cm2) 1.4 Comments bilateral lumbar paraspinals PT-OP-T Assessment and Plan Start: 01/14/21 08:36 Freq: Status: Active Protocol: Document 06/17/21 12:54 [facility] (Rec: 06/17/21 13:19 [facility] [id number]) Physical Therapy Assessment Goals range of motion Impairment stiffness throughout patient's trunk and hips Short Term Goal (STG) Instruct in HEP to address soft tissue mobility impairments STG Duration goal met Mcc Goal (LTG) Patient to demonstrate improvements in overall flexibility throughout trunk and hips and be safe and independent with HEP and aquatic exercise program for long-term fitness and pain management. 04/17/21: has not yet started aquatic exercise program; reports he plans to next week. He has had good compliance to HEP. LTG Duration 06/16/21 Strength Impairment weakness core and hips Short Term Goal (STG) Patient to begin land and aquatic exercise to address impairments in core and hip muscle strength with good tolerance 03/24/21: goal progress, hasn't started aquatic exercise yet 04/17/21: to start aquatic exercise next week. 06/17/21: due to lung diagnosis patient has not started back at pool for aquatic exercises STG Duration 05/01/21 [facility] Goal (LTG) Improve strength to at least 4 +/5 throughout trunk and LE's with patient demonstrating safety and independence with HEP and aquatic exercise program for long-term fitness and pain management. 03/21/21: some goal progress 04/17/21: good goal progress, strength improved to 4/5 except hip extension 4-/5 06/17/21: strength 4+/5 except hip extension still 4-/5 LTG Duration 07/03/21 Pain Impairment Pain level 7/10 diana lumbar spine and 6/10 diana cervical spine Short Term Goal (STG) Decrease pain to no greater than 5/10 09/07/19: goal progress, 6/03/21/21: pain level variable, still up to 8/10 at times, more often recently at 4-5/10 04/17/21: pain varies from 2-8/ 10 lumbar spine, 2 to 4/10 right th STG Duration not fully met Residence Supervisor Goal (LTG) Decrease pain to no greater than 3/10 04/17/21: goal progress as above 06/17/21: pain right thigh decreased to 2/10 with self- taping with kinesiotape. Pain lumbar spine still varies from 2-8/10, decreased with PT . LTG Duration 07/03/21 Gait Impairment Requires use of walker, unable to walk community distances Short Term Goal (STG) Patient able to walk community distances with FWW with with minimal to no increase in pain. 03/21/21: patient ambulated from parking lot to waiting room, then into PT gym without using assistive device. Patient reports it is harder and he feels more pain, but wants to be able to do. Wants to go golfing again. 04/17/21: has played a couple rounds of golf without reporting increase in pain, as long as he stands only briefly to hit ball, then sits back in cart. 06/17: able to ambulate short distances using cane STG Duration goal progress, limited to 10 min Mcc Goal (LTG) Patient able to ambulate with cane device for short community distances 03/21/21: only tolerates very short community distances (ie 100' or less), 04/17/21: using primarily cane, occasionally able to ambulate without device at this time, and demonstrating increase in speed 06/17/21: limited to 10 minutes of standing or walking, able to use cane. moderate forward flexion at trunk. LTG Duration 07/03/21 Activity tolerance Impairment Oswestry disability index score 48% Short Term Goal (STG) Decrease Oswestry score to no greater than 38% as measure of improved patient tolerance for usual daily activities 09/07/19: 52% 03/21/21: decreased to 44%, goal progress 04/17/21:decreased to 38% STG Duration goal progress Mcc Goal (LTG) Decrease Oswestry score to no greater than 25% as measure of improved activity tolerance 06/17/21: decreased to 40% LTG Duration 07/03/21 Progress Towards Goals Progress Towards Goals Slow Progress due to Medical Issues Assessment Summary Assessment Patient continues to benefit from PT, though progress has been hampered by diagnosis of lung disease with him taking new medication which has caused him to feel poorly including dizziness, states the side effects seem to be lessening. His low back pain decreases with PT treatment, and he demonstrates improvement in strength and gait ability, though limited to 10 min standing or walking due to pain as high as 8/10 likely due to stenosis with moderate forward flexed posture; c/o pain withattempts to stand more upright. Due to his medical issues has not been able to start aquatic exercise, and this PT clinic has not yet restarted aquatic PT, which I feel would be the most beneficial for this patient. At this time plan to transition to self-management within the next month. Physical Therapy Plan Frequency and Duration Frequency of Treatment 2x/Week Duration of Treatment 4 weeks Plan of Care Start Date 06/17/21 Plan of Care End Date 07/18/21 Therapeutic Interventions Therapeutic Interventions Aquatic Therapy,Gait Training, Home Exercise Program,Manual Therapy,Neuromuscular Re- education,Patient/Caregiver Education,Self-Care/Home Management,Soft Tissue Mobilization,Taping, Therapeutic Activities, Therapeutic Exercises Modalities Electric Stimulation,Hot Packs ,Infrared Therapy,Ultrasound Next Visit Focus/Plan Next Note Type Treatment Note Next Visit Plan Progress ther ex as tolerated including hip flexor and hamstring stretching options as tolerated, encourage increased compliance to HEP.
--- NOTE | 2021-06-19 16:31 | PT.OTN ---
Current Diagnoses Chronic pain syndrome (06/19/21) Radiculopathy, lumbar region (06/19/21) Cervicalgia (06/19/21) Iliotibial band syndrome, right leg (06/19/21) Arthrodesis status (06/19/21) Other specified postprocedural states (06/19/21) Physical Therapy Treatment Note PT-OP-A Visit Information Start: 01/14/21 08:36 Freq: Status: Active Protocol: Document 06/19/21 15:12 [facility] (Rec: 06/19/21 15:41 [facility] [id number]) Out-Patient Physical Therapy Visit Information Visit Information Visit Type Treatment Note Visit Start Time 15:15 Visit Stop Time 16:15 Total Visit Minutes 60 Visit Number 21 Precautions Precautions history of fusion c/s and l/s with metal. PT-OP-B Current Condition Start: 01/14/21 08:36 Freq: Status: Active Protocol: Document 01/17/21 14:31 [facility] (Rec: 01/17/21 16:09 [facility] [id number]) Current Condition History of Current Condition Onset Date 1 year Current Complaints worsening LBP and neck pain and weakness arms and legs. History of Current Condition neck and back pain progressisvely worsening with decreased activity tolerance. Unable to golf any longer. Tried to drive to [place] 2018, couldn't make it due to pain. Last year coming back from [place] things deteriorated more. but was able to make it back. Numbness and tingling occasionally in hands. States legs give out occasionally and also spasm; states leg spasm in bed hurt his back a few nights ago. Uses walker to go any distance otherwise uses cane or furniture at home . Not currently doing any exercises, can walk about 75' at a time. Stopped doing aquatic exercise due to pool closure as result of Covid-19 and hasn't restarted. Admits to feeling some depressed/ disappointed. States Dr. Tirado recomended he look at going to assisted living and he plans to check out a few facilities in [place] close to his daughter. Prior Treatments and Tests No recent MRI or x-rays chest x-ray 6 months ago negative, states heart and lungs stable. Saw Dr. Littlejohn and 1 year ago; state nothing can be done Seeing Dr. Tirado: having osteopathic treatments; seems to help a little Treatment Goals Patient/Caregiver Goals Decrease pain, improve activity tolerance and function Prior Functional Status Baseline Function- ADL's Modified Independent Baseline Function- Mobility Modified Independent Baseline Function- Gait independent with device community distances Baseline Function- Work/School retired Baseline Function- Recreation/Hobbies restoring cars, golf Current Functional Impairments (Reported) Functional Limitations- ADL's increased time, more painful Functional Limitations- Mobility/Gait 75' with FWW max Functional Limitations- Recreation/ unable Hobbies PT-OP-C Subjective Start: 01/14/21 08:36 Freq: Status: Active Protocol: Document 06/19/21 15:12 [facility] (Rec: 06/19/21 15:41 [facility] [id number]) OP-PT Subjective Patient Comments Patient Comments [place] pretty good after last PT session, able to walk without cane for awhile PT-OP-G Mobility & Gait Start: 01/14/21 08:36 Freq: Status: Active Protocol: Document 01/17/21 14:31 [facility] (Rec: 01/17/21 16:09 [facility] [id number]) OP Gait Assessment Gait Gait Assistance Required: Independent Distance (Feet) 75 Gait Deviations General Gait Pattern Decreased Stride Length, Decreased Feet Clearance, Flexed Trunk Factors Limiting Gait Function Factors Limiting Gait Function Decreased Activity Tolerance, Decreased Strength,Pain PT-OP-J Posture/Palpation/Skin Start: 01/14/21 08:36 Freq: Status: Active Protocol: Document 01/17/21 14:31 [facility] (Rec: 01/17/21 16:09 [facility] [id number]) Posture Evaluation Position Standing Head/C-Spine Posture Forward Head T-Spine Posture Increased Kyphosis L-Spine Posture Decreased Lordosis Scapula Posture (L) Protracted,(R) Protracted Arm Posture (L) Internally Rotated,(R) Internally Rotated Pelvis Posture (L) Rotated Anterior,(R) Rotated Anterior Hip Posture (L) Flexed,(R) Flexed Knee Posture (L) Excess Flexion,(R) Excess Flexion Ankle/Foot Posture (L) Forefoot Eversion,(R) Forefoot Eversion Palpation Assessment Location bilateral cervical paraspinals, UT Palpation Findings Soft Tissue Tightness,Muscle Guarding,Tenderness diana lumbar paraspinals Palpation Findings Soft Tissue Tightness,Muscle Guarding,Tenderness Palpation Details tight diana, right greater than left PT-OP-K Range of Motion Start: 01/14/21 08:36 Freq: Status: Active Protocol: Document 01/17/21 14:31 [facility] (Rec: 01/17/21 16:09 [facility] [id number]) Cervical Spine Range of Motion Cervical Spine Active Degrees Testing Position Sitting Flexion 58 Extension 5 Rotation Left 27 Rotation Right 25 Lateral Flexion Left 14 Lateral Flexion Right 17 ROM Limitations Soft Tissue Tightness,Bony Restriction,Pain Lumbar Spine Range of Motion Lumbar Spine Active Degrees Flexion 20 Extension 0 Rotation Left 15 Rotation Right 15 Lateral Flexion Left 25 Lateral Flexion Right 25 Comments -10 deg ext with c/o increased pain Hip Goniometric Range of Motion Hip Left Flexion w/Knee Flexed 105 Straight Leg Raise 45 Internal Rotation 25 External Rotation 70 Right Flexion w/Knee Flexed 110 Straight Leg Raise 45 Internal Rotation 15 External Rotation 20 Hip ROM Limitations Comments -5 diana hip ext PT-OP-L Special Tests Start: 01/14/21 08:36 Freq: Status: Active Protocol: Document 01/17/21 14:31 [facility] (Rec: 01/17/21 16:09 [facility] [id number]) Special Tests Lumbar Spine Special Tests Manual Traction Test Results positive for increasing pain Horacio Test Results positive for hip flexor tightness diana Straight Leg Raise Test Results positive for muscle tightness not radicular pain Compression Test Results positive right Comments pain radiating to right posterior knee Hip Special Tests Piriformis Test Results positive right Scour Test Test Results negative diana PT-OP-M Strength Start: 01/14/21 08:36 Freq: Status: Active Protocol: Document 01/17/21 14:31 [facility] (Rec: 01/17/21 16:09 [facility] [id number]) Cervical Spine Strength Cervical Spine Manual Muscle Testing Flexion (C1-2) 4 Good Extension 4- Good- Rotation Left 4 Good Rotation Right 4 Good Lateral Flexion Left (C3) 4 Good Lateral Flexion Right (C3) 4 Good Trunk Strength Trunk Manual Muscle Testing Flexion 3+ Fair+ Extension 3+ Fair+ Rotation Left 4- Good- Rotation Right 4- Good- Lateral Flexion Left 4- Good- Lateral Flexion Right 4- Good- Shoulder Strength Shoulder Manual Muscle Testing diana Flexion 4 Good Extension 4- Good- External Rotation 4- Good- Internal Rotation 4- Good- Elbow/Forearm Strength Elbow and Forearm Manual Muscle Testing diana Flexion (C6) 4 Good Extension (C7) 4 Good PT-OP-Q Treatments Start: 01/14/21 08:36 Freq: Status: Active Protocol: Document 06/19/21 15:12 [facility] (Rec: 06/19/21 15:41 [facility] [id number]) Cardio Equipment Recumbent Stepper (Sci-Fit) Duration (Minutes) 10 Resistance 2.0 Seat Position 15 Gym Equipment Shuttle Recovery Unilateral Squats Resistance 37 Reps/Time 10x2 Bilateral Squats Resistance 75 Reps/Time 10x2 Therapeutic Exercises Supine Exercises HS stretch Reps/Minutes 2x Comments manual, patient laying on shuttle leg press Sitting Exercises hip ab/ER Resistance L2 TB Reps/Minutes 10x ball squeeze Equipment Used ball Reps/Minutes 10x Standing Exercises hip flexor stretch Standing Exercise Name with gluteal isometric Reps/Minutes 3x Manual Therapy Treatment Soft Tissue Mobilization lumbar paraspinals, piriformis Mobilization Type Myofascial Release,Rolling, Strumming Intensity/Depth Moderate Body Position Sitting Taping 1 Body Location bilateral lumbar paraspinals Treatment Focus inhibition, pain reduction Type of Tape kinesiotape Skin Inspection intact Comments paper off tension PT-OP-R Modalities Start: 01/14/21 08:36 Freq: Status: Active Protocol: Document 06/19/21 15:12 [facility] (Rec: 06/19/21 15:41 [facility] [id number]) Electric Stimulation Electric Stimulation Interferential Current (IFC) Body Location bilateral lumbar paraspinals Duration (Minutes) 15 Target/Sweep Sweep High/Low High Patient Position Sitting Combined With Heat/Cold Hot Pack Ultrasound Therapy Treatment Back Treatment Duration (minutes) 8 Patient Position Sitting Coupling Medium Ultrasound Gel Frequency Setting (mHz) 1 Mode Setting Continuous Duty Cycle 100% Intensity Setting (w/cm2) 1.4 Comments bilateral lumbar paraspinals PT-OP-T Assessment and Plan Start: 01/14/21 08:36 Freq: Status: Active Protocol: Document 06/19/21 15:12 [facility] (Rec: 06/19/21 15:41 [facility] [id number]) Physical Therapy Assessment Goals range of motion Impairment stiffness throughout patient's trunk and hips Short Term Goal (STG) Instruct in HEP to address soft tissue mobility impairments STG Duration goal met National Sales Director Goal (LTG) Patient to demonstrate improvements in overall flexibility throughout trunk and hips and be safe and independent with HEP and aquatic exercise program for long-term fitness and pain management. 04/17/21: has not yet started aquatic exercise program; reports he plans to next week. He has had good compliance to HEP. LTG Duration 06/16/21 Strength Impairment weakness core and hips Short Term Goal (STG) Patient to begin land and aquatic exercise to address impairments in core and hip muscle strength with good tolerance 03/24/21: goal progress, hasn't started aquatic exercise yet 04/17/21: to start aquatic exercise next week. 06/17/21: due to lung diagnosis patient has not started back at pool for aquatic exercises STG Duration 05/01/21 [employer] Goal (LTG) Improve strength to at least 4 +/5 throughout trunk and LE's with patient demonstrating safety and independence with HEP and aquatic exercise program for long-term fitness and pain management. 03/21/21: some goal progress 04/17/21: good goal progress, strength improved to 4/5 except hip extension 4-/5 06/17/21: strength 4+/5 except hip extension still 4-/5 LTG Duration 07/03/21 Pain Impairment Pain level 7/10 diana lumbar spine and 6/10 diana cervical spine Short Term Goal (STG) Decrease pain to no greater than 5/10 09/07/19: goal progress, 6/10 03/21/21: pain level variable, still up to 8/10 at times, more often recently at 4-5/10 04/17/21: pain varies from 2-8/ 10 lumbar spine, 2 to 4/10 right th STG Duration not fully met [employer] Sales Director Goal (LTG) Decrease pain to no greater than 3/10 04/17/21: goal progress as above 06/17/21: pain right thigh decreased to 2/10 with self- taping with kinesiotape. Pain lumbar spine still varies from 2-8/10, decreased with PT . LTG Duration 07/03/21 Gait Impairment Requires use of walker, unable to walk community distances Short Term Goal (STG) Patient able to walk community distances with FWW with with minimal to no increase in pain. 03/21/21: patient ambulated from parking lot to waiting room, then into PT gym without using assistive device. Patient reports it is harder and he feels more pain, but wants to be able to do. Wants to go golfing again. 04/17/21: has played a couple rounds of golf without reporting increase in pain, as long as he stands only briefly to hit ball, then sits back in cart. 06/17: able to ambulate short distances using cane STG Duration goal progress, limited to 10 min National Sales Director Goal (LTG) Patient able to ambulate with cane device for short community distances 03/21/21: only tolerates very short community distances (ie 100' or less), 04/17/21: using primarily cane, occasionally able to ambulate without device at this time, and demonstrating increase in speed 06/17/21: limited to 10 minutes of standing or walking, able to use cane. moderate forward flexion at trunk. LTG Duration 07/03/21 Activity tolerance Impairment Oswestry disability index score 48% Short Term Goal (STG) Decrease Oswestry score to no greater than 38% as measure of improved patient tolerance for usual daily activities 09/07/19: 52% 03/21/21: decreased to 44%, goal progress 04/17/21:decreased to 38% STG Duration goal progress Intermediate Goal (LTG) Decrease Oswestry score to no greater than 25% as measure of improved activity tolerance 06/17/21: decreased to 40% LTG Duration 07/03/21 Assessment Summary Assessment more upright gait today using SPC, fatigued quickly, becomes dizzy after changing positions. C/o left UE soreness after reaching too far for something, unable to use on Sci-Fit today. Added hip flexor and hamstring stretches back in today with good tolerance. Physical Therapy Plan Frequency and Duration Frequency of Treatment 2x/Week Duration of Treatment 4 weeks Plan of Care Start Date 06/17/21 Plan of Care End Date 07/18/21 Therapeutic Interventions Therapeutic Interventions Aquatic Therapy,Gait Training, Home Exercise Program,Manual Therapy,Neuromuscular Re- education,Patient/Caregiver Education,Self-Care/Home Management,Soft Tissue Mobilization,Taping, Therapeutic Activities, Therapeutic Exercises Modalities Electric Stimulation,Hot Packs ,Infrared Therapy,Ultrasound Next Visit Focus/Plan Next Note Type Treatment Note Next Visit Plan Continue to progress therapeutic exercise program as tolerated to help patient improve his activity tolerance and decrease his pain.
--- NOTE | 2021-06-25 13:28 | PT.OTN ---
Current Diagnoses Chronic pain syndrome (06/25/21) Radiculopathy, lumbar region (06/25/21) Cervicalgia (06/25/21) Iliotibial band syndrome, right leg (06/25/21) Arthrodesis status (06/25/21) Other specified postprocedural states (06/25/21) Physical Therapy Treatment Note PT-OP-A Visit Information Start: 01/14/21 08:36 Freq: Status: Active Protocol: Document 06/25/21 13:08 [facility] (Rec: 06/25/21 13:28 [facility] [id number]) Out-Patient Physical Therapy Visit Information Visit Information Visit Type Treatment Note Visit Start Time 13:00 Visit Stop Time 14:00 Total Visit Minutes 60 Visit Number 22 Precautions Precautions history of fusion c/s and l/s with metal. PT-OP-B Current Condition Start: 01/14/21 08:36 Freq: Status: Active Protocol: Document 01/17/21 14:31 [facility] (Rec: 01/17/21 16:09 [facility] [id number]) Current Condition History of Current Condition Onset Date 1 year Current Complaints worsening LBP and neck pain and weakness arms and legs. History of Current Condition neck and back pain progressisvely worsening with decreased activity tolerance. Unable to golf any longer. Tried to drive to [place] 2018, couldn't make it due to pain. Last year coming back from [place] things deteriorated more. but was able to make it back. Numbness and tingling occasionally in hands. States legs give out occasionally and also spasm; states leg spasm in bed hurt his back a few nights ago. Uses walker to go any distance otherwise uses cane or furniture at home . Not currently doing any exercises, can walk about 75' at a time. Stopped doing aquatic exercise due to pool closure as result of Covid-19 and hasn't restarted. Admits to feeling some depressed/ disappointed. States Dr. Tirado recomended he look at going to assisted living and he plans to check out a few facilities in [place] close to his daughter. Prior Treatments and Tests No recent MRI or x-rays chest x-ray 6 months ago negative, states heart and lungs stable. Saw Dr. Littlejohn and 1 year ago; state nothing can be done Seeing Dr. Tirado: having osteopathic treatments; seems to help a little Treatment Goals Patient/Caregiver Goals Decrease pain, improve activity tolerance and function Prior Functional Status Baseline Function- ADL's Modified Independent Baseline Function- Mobility Modified Independent Baseline Function- Gait independent with device community distances Baseline Function- Work/School retired Baseline Function- Recreation/Hobbies restoring cars, golf Current Functional Impairments (Reported) Functional Limitations- ADL's increased time, more painful Functional Limitations- Mobility/Gait 75' with FWW max Functional Limitations- Recreation/ unable Hobbies PT-OP-C Subjective Start: 01/14/21 08:36 Freq: Status: Active Protocol: Document 06/25/21 13:08 [facility] (Rec: 06/25/21 13:28 [facility] [id number]) OP-PT Subjective Patient Comments Patient Comments Not feeling well due to his medications; dizzy, nauseous. Hasn't taken BP. Sees nursing services manager 07/04, record press supervisor for echocardiogram 07/08. PT-OP-G Mobility & Gait Start: 01/14/21 08:36 Freq: Status: Active Protocol: Document 01/17/21 14:31 [facility] (Rec: 01/17/21 16:09 [facility] [id number]) OP Gait Assessment Gait Gait Assistance Required: Independent Distance (Feet) 75 Gait Deviations General Gait Pattern Decreased Stride Length, Decreased Feet Clearance, Flexed Trunk Factors Limiting Gait Function Factors Limiting Gait Function Decreased Activity Tolerance, Decreased Strength,Pain PT-OP-J Posture/Palpation/Skin Start: 01/14/21 08:36 Freq: Status: Active Protocol: Document 01/17/21 14:31 [facility] (Rec: 01/17/21 16:09 [facility] [id number]) Posture Evaluation Position Standing Head/C-Spine Posture Forward Head T-Spine Posture Increased Kyphosis L-Spine Posture Decreased Lordosis Scapula Posture (L) Protracted,(R) Protracted Arm Posture (L) Internally Rotated,(R) Internally Rotated Pelvis Posture (L) Rotated Anterior,(R) Rotated Anterior Hip Posture (L) Flexed,(R) Flexed Knee Posture (L) Excess Flexion,(R) Excess Flexion Ankle/Foot Posture (L) Forefoot Eversion,(R) Forefoot Eversion Palpation Assessment Location bilateral cervical paraspinals, UT Palpation Findings Soft Tissue Tightness,Muscle Guarding,Tenderness diana lumbar paraspinals Palpation Findings Soft Tissue Tightness,Muscle Guarding,Tenderness Palpation Details tight diana, right greater than left PT-OP-K Range of Motion Start: 01/14/21 08:36 Freq: Status: Active Protocol: Document 01/17/21 14:31 [facility] (Rec: 01/17/21 16:09 [facility] [id number]) Cervical Spine Range of Motion Cervical Spine Active Degrees Testing Position Sitting Flexion 58 Extension 5 Rotation Left 27 Rotation Right 25 Lateral Flexion Left 14 Lateral Flexion Right 17 ROM Limitations Soft Tissue Tightness,Bony Restriction,Pain Lumbar Spine Range of Motion Lumbar Spine Active Degrees Flexion 20 Extension 0 Rotation Left 15 Rotation Right 15 Lateral Flexion Left 25 Lateral Flexion Right 25 Comments -10 deg ext with c/o increased pain Hip Goniometric Range of Motion Hip Left Flexion w/Knee Flexed 105 Straight Leg Raise 45 Internal Rotation 25 External Rotation 70 Right Flexion w/Knee Flexed 110 Straight Leg Raise 45 Internal Rotation 15 External Rotation 20 Hip ROM Limitations Comments -5 diana hip ext PT-OP-L Special Tests Start: 01/14/21 08:36 Freq: Status: Active Protocol: Document 01/17/21 14:31 [facility] (Rec: 01/17/21 16:09 [facility] [id number]) Special Tests Lumbar Spine Special Tests Manual Traction Test Results positive for increasing pain Horacio Test Results positive for hip flexor tightness diana Straight Leg Raise Test Results positive for muscle tightness not radicular pain Compression Test Results positive right Comments pain radiating to right posterior knee Hip Special Tests Piriformis Test Results positive right Scour Test Test Results negative diana PT-OP-M Strength Start: 01/14/21 08:36 Freq: Status: Active Protocol: Document 01/17/21 14:31 [facility] (Rec: 01/17/21 16:09 [facility] [id number]) Cervical Spine Strength Cervical Spine Manual Muscle Testing Flexion (C1-2) 4 Good Extension 4- Good- Rotation Left 4 Good Rotation Right 4 Good Lateral Flexion Left (C3) 4 Good Lateral Flexion Right (C3) 4 Good Trunk Strength Trunk Manual Muscle Testing Flexion 3+ Fair+ Extension 3+ Fair+ Rotation Left 4- Good- Rotation Right 4- Good- Lateral Flexion Left 4- Good- Lateral Flexion Right 4- Good- Shoulder Strength Shoulder Manual Muscle Testing diana Flexion 4 Good Extension 4- Good- External Rotation 4- Good- Internal Rotation 4- Good- Elbow/Forearm Strength Elbow and Forearm Manual Muscle Testing diana Flexion (C6) 4 Good Extension (C7) 4 Good PT-OP-Q Treatments Start: 01/14/21 08:36 Freq: Status: Active Protocol: Document 06/25/21 13:08 [facility] (Rec: 06/25/21 13:28 [facility] [id number]) Cardio Equipment Recumbent Stepper (Sci-Fit) Duration (Minutes) 10 Resistance 2.0 Seat Position 13 Gym Equipment Shuttle Recovery Unilateral Squats Resistance 37 Reps/Time 10x2 Bilateral Squats Resistance 75 Reps/Time 10x2 Therapeutic Exercises Supine Exercises HS stretch Reps/Minutes 2x Comments manual, patient laying on shuttle leg press Sitting Exercises hip ab/ER Resistance L2 TB Reps/Minutes 10x ball squeeze Equipment Used ball Reps/Minutes 10x Standing Exercises hip flexor stretch Standing Exercise Name with gluteal isometric Reps/Minutes 3x Manual Therapy Treatment Soft Tissue Mobilization lumbar paraspinals, piriformis Mobilization Type Myofascial Release,Rolling, Strumming Intensity/Depth Moderate Body Position Sitting Taping 1 Body Location bilateral lumbar paraspinals Treatment Focus inhibition, pain reduction Type of Tape kinesiotape Skin Inspection intact Comments paper off tension PT-OP-R Modalities Start: 01/14/21 08:36 Freq: Status: Active Protocol: Document 06/25/21 13:08 [facility] (Rec: 06/25/21 13:28 [facility] [id number]) Electric Stimulation Electric Stimulation Interferential Current (IFC) Body Location bilateral lumbar paraspinals Duration (Minutes) 15 Target/Sweep Sweep High/Low High Patient Position Sitting Combined With Heat/Cold Hot Pack Ultrasound Therapy Treatment Back Treatment Duration (minutes) 8 Patient Position Sitting Coupling Medium Ultrasound Gel Frequency Setting (mHz) 1 Mode Setting Continuous Duty Cycle 100% Intensity Setting (w/cm2) 1.4 Comments bilateral lumbar paraspinals PT-OP-T Assessment and Plan Start: 01/14/21 08:36 Freq: Status: Active Protocol: Document 06/25/21 13:08 [facility] (Rec: 06/25/21 13:28 [facility] [id number]) Physical Therapy Assessment Goals range of motion Impairment stiffness throughout patient's trunk and hips Short Term Goal (STG) Instruct in HEP to address soft tissue mobility impairments STG Duration goal met [facility] Goal (LTG) Patient to demonstrate improvements in overall flexibility throughout trunk and hips and be safe and independent with HEP and aquatic exercise program for long-term fitness and pain management. 04/17/21: has not yet started aquatic exercise program; reports he plans to next week. He has had good compliance to HEP. LTG Duration 06/16/21 Strength Impairment weakness core and hips Short Term Goal (STG) Patient to begin land and aquatic exercise to address impairments in core and hip muscle strength with good tolerance 03/24/21: goal progress, hasn't started aquatic exercise yet 04/17/21: to start aquatic exercise next week. 06/17/21: due to lung diagnosis patient has not started back at pool for aquatic exercises STG Duration 05/01/21 [facility] Goal (LTG) Improve strength to at least 4 +/5 throughout trunk and LE's with patient demonstrating safety and independence with HEP and aquatic exercise program for long-term fitness and pain management. 03/21/21: some goal progress 04/17/21: good goal progress, strength improved to 4/5 except hip extension 4-/5 06/17/21: strength 4+/5 except hip extension still 4-/5 LTG Duration 07/03/21 Pain Impairment Pain level 7/10 diana lumbar spine and 6/10 diana cervical spine Short Term Goal (STG) Decrease pain to no greater than 5/10 09/07/19: goal progress, 6/10 03/21/21: pain level variable, still up to 8/10 at times, more often recently at 4-5/10 04/17/21: pain varies from 2-8/ 10 lumbar spine, 2 to 4/10 right th STG Duration not fully met Room Inspector Goal (LTG) Decrease pain to no greater than 3/10 04/17/21: goal progress as above 06/17/21: pain right thigh decreased to 2/10 with self- taping with kinesiotape. Pain lumbar spine still varies from 2-8/10, decreased with PT . LTG Duration 07/03/21 Gait Impairment Requires use of walker, unable to walk community distances Short Term Goal (STG) Patient able to walk community distances with FWW with with minimal to no increase in pain. 03/21/21: patient ambulated from parking lot to waiting room, then into PT gym without using assistive device. Patient reports it is harder and he feels more pain, but wants to be able to do. Wants to go golfing again. 04/17/21: has played a couple rounds of golf without reporting increase in pain, as long as he stands only briefly to hit ball, then sits back in cart. 06/17: able to ambulate short distances using cane STG Duration goal progress, limited to 10 min Room Inspector Goal (LTG) Patient able to ambulate with cane device for short community distances 03/21/21: only tolerates very short community distances (ie 100' or less), 04/17/21: using primarily cane, occasionally able to ambulate without device at this time, and demonstrating increase in speed 06/17/21: limited to 10 minutes of standing or walking, able to use cane. moderate forward flexion at trunk. LTG Duration 07/03/21 Activity tolerance Impairment Oswestry disability index score 48% Short Term Goal (STG) Decrease Oswestry score to no greater than 38% as measure of improved patient tolerance for usual daily activities 09/07/19: 52% 03/21/21: decreased to 44%, goal progress 04/17/21:decreased to 38% STG Duration goal progress Room Inspector Goal (LTG) Decrease Oswestry score to no greater than 25% as measure of improved activity tolerance 06/17/21: decreased to 40% LTG Duration 07/03/21 Progress Towards Goals Progress Towards Goals Slow Progress due to Medical Issues Assessment Summary Assessment side effects from medications causing patient not to feel well. Has been compliant to HEP. BP 90/54. Less time at highest pain level. Physical Therapy Plan Frequency and Duration Frequency of Treatment 2x/Week Duration of Treatment 4 weeks Plan of Care Start Date 06/17/21 Plan of Care End Date 07/18/21 Therapeutic Interventions Therapeutic Interventions Aquatic Therapy,Gait Training, Home Exercise Program,Manual Therapy,Neuromuscular Re- education,Patient/Caregiver Education,Self-Care/Home Management,Soft Tissue Mobilization,Taping, Therapeutic Activities, Therapeutic Exercises Modalities Electric Stimulation,Hot Packs ,Infrared Therapy,Ultrasound Next Visit Focus/Plan Next Note Type Treatment Note Next Visit Plan Continue to progress therapeutic exercise program as tolerated to help patient improve his activity tolerance and decrease his pain.
--- NOTE | 2021-06-25 13:48 | PT.OTN ---
Current Diagnoses Chronic pain syndrome (06/25/21) Radiculopathy, lumbar region (06/25/21) Cervicalgia (06/25/21) Iliotibial band syndrome, right leg (06/25/21) Arthrodesis status (06/25/21) Other specified postprocedural states (06/25/21) Physical Therapy Treatment Note PT-OP-A Visit Information Start: 01/14/21 08:36 Freq: Status: Active Protocol: Document 06/25/21 13:08 [facility] (Rec: 06/25/21 13:28 [facility] [id number]) Out-Patient Physical Therapy Visit Information Visit Information Visit Type Treatment Note Visit Start Time 13:00 Visit Stop Time 14:00 Total Visit Minutes 60 Visit Number 22 Precautions Precautions history of fusion c/s and l/s with metal. PT-OP-B Current Condition Start: 01/14/21 08:36 Freq: Status: Active Protocol: Document 01/17/21 14:31 [facility] (Rec: 01/17/21 16:09 [facility] [id number]) Current Condition History of Current Condition Onset Date 1 year Current Complaints worsening LBP and neck pain and weakness arms and legs. History of Current Condition neck and back pain progressisvely worsening with decreased activity tolerance. Unable to golf any longer. Tried to drive to [place] 2018, couldn't make it due to pain. Last year coming back from [place] things deteriorated more. but was able to make it back. Numbness and tingling occasionally in hands. States legs give out occasionally and also spasm; states leg spasm in bed hurt his back a few nights ago. Uses walker to go any distance otherwise uses cane or furniture at home . Not currently doing any exercises, can walk about 75' at a time. Stopped doing aquatic exercise due to pool closure as result of Covid-19 and hasn't restarted. Admits to feeling some depressed/ disappointed. States Dr. Tirado recomended he look at going to assisted living and he plans to check out a few facilities in [place] close to his daughter. Prior Treatments and Tests No recent MRI or x-rays chest x-ray 6 months ago negative, states heart and lungs stable. Saw Dr. Littlejohn and 1 year ago; state nothing can be done Seeing Dr. Tirado: having osteopathic treatments; seems to help a little Treatment Goals Patient/Caregiver Goals Decrease pain, improve activity tolerance and function Prior Functional Status Baseline Function- ADL's Modified Independent Baseline Function- Mobility Modified Independent Baseline Function- Gait independent with device community distances Baseline Function- Work/School retired Baseline Function- Recreation/Hobbies restoring cars, golf Current Functional Impairments (Reported) Functional Limitations- ADL's increased time, more painful Functional Limitations- Mobility/Gait 75' with FWW max Functional Limitations- Recreation/ unable Hobbies PT-OP-C Subjective Start: 01/14/21 08:36 Freq: Status: Active Protocol: Document 06/25/21 13:08 [facility] (Rec: 06/25/21 13:28 [facility] [id number]) OP-PT Subjective Patient Comments Patient Comments Not feeling well due to his medications; dizzy, nauseous. Hasn't taken BP. Sees annealing operator 07/04, sports physician for echocardiogram 07/08. PT-OP-G Mobility & Gait Start: 01/14/21 08:36 Freq: Status: Active Protocol: Document 01/17/21 14:31 [facility] (Rec: 01/17/21 16:09 [facility] [id number]) OP Gait Assessment Gait Gait Assistance Required: Independent Distance (Feet) 75 Gait Deviations General Gait Pattern Decreased Stride Length, Decreased Feet Clearance, Flexed Trunk Factors Limiting Gait Function Factors Limiting Gait Function Decreased Activity Tolerance, Decreased Strength,Pain PT-OP-J Posture/Palpation/Skin Start: 01/14/21 08:36 Freq: Status: Active Protocol: Document 01/17/21 14:31 [facility] (Rec: 01/17/21 16:09 [facility] [id number]) Posture Evaluation Position Standing Head/C-Spine Posture Forward Head T-Spine Posture Increased Kyphosis L-Spine Posture Decreased Lordosis Scapula Posture (L) Protracted,(R) Protracted Arm Posture (L) Internally Rotated,(R) Internally Rotated Pelvis Posture (L) Rotated Anterior,(R) Rotated Anterior Hip Posture (L) Flexed,(R) Flexed Knee Posture (L) Excess Flexion,(R) Excess Flexion Ankle/Foot Posture (L) Forefoot Eversion,(R) Forefoot Eversion Palpation Assessment Location bilateral cervical paraspinals, UT Palpation Findings Soft Tissue Tightness,Muscle Guarding,Tenderness diana lumbar paraspinals Palpation Findings Soft Tissue Tightness,Muscle Guarding,Tenderness Palpation Details tight diana, right greater than left PT-OP-K Range of Motion Start: 01/14/21 08:36 Freq: Status: Active Protocol: Document 01/17/21 14:31 [facility] (Rec: 01/17/21 16:09 [facility] [id number]) Cervical Spine Range of Motion Cervical Spine Active Degrees Testing Position Sitting Flexion 58 Extension 5 Rotation Left 27 Rotation Right 25 Lateral Flexion Left 14 Lateral Flexion Right 17 ROM Limitations Soft Tissue Tightness,Bony Restriction,Pain Lumbar Spine Range of Motion Lumbar Spine Active Degrees Flexion 20 Extension 0 Rotation Left 15 Rotation Right 15 Lateral Flexion Left 25 Lateral Flexion Right 25 Comments -10 deg ext with c/o increased pain Hip Goniometric Range of Motion Hip Left Flexion w/Knee Flexed 105 Straight Leg Raise 45 Internal Rotation 25 External Rotation 70 Right Flexion w/Knee Flexed 110 Straight Leg Raise 45 Internal Rotation 15 External Rotation 20 Hip ROM Limitations Comments -5 diana hip ext PT-OP-L Special Tests Start: 01/14/21 08:36 Freq: Status: Active Protocol: Document 01/17/21 14:31 [facility] (Rec: 01/17/21 16:09 [facility] [id number]) Special Tests Lumbar Spine Special Tests Manual Traction Test Results positive for increasing pain Horacio Test Results positive for hip flexor tightness diana Straight Leg Raise Test Results positive for muscle tightness not radicular pain Compression Test Results positive right Comments pain radiating to right posterior knee Hip Special Tests Piriformis Test Results positive right Scour Test Test Results negative diana PT-OP-M Strength Start: 01/14/21 08:36 Freq: Status: Active Protocol: Document 01/17/21 14:31 [facility] (Rec: 01/17/21 16:09 [facility] [id number]) Cervical Spine Strength Cervical Spine Manual Muscle Testing Flexion (C1-2) 4 Good Extension 4- Good- Rotation Left 4 Good Rotation Right 4 Good Lateral Flexion Left (C3) 4 Good Lateral Flexion Right (C3) 4 Good Trunk Strength Trunk Manual Muscle Testing Flexion 3+ Fair+ Extension 3+ Fair+ Rotation Left 4- Good- Rotation Right 4- Good- Lateral Flexion Left 4- Good- Lateral Flexion Right 4- Good- Shoulder Strength Shoulder Manual Muscle Testing diana Flexion 4 Good Extension 4- Good- External Rotation 4- Good- Internal Rotation 4- Good- Elbow/Forearm Strength Elbow and Forearm Manual Muscle Testing diana Flexion (C6) 4 Good Extension (C7) 4 Good PT-OP-Q Treatments Start: 01/14/21 08:36 Freq: Status: Active Protocol: Document 06/25/21 13:08 [facility] (Rec: 06/25/21 13:28 [facility] [id number]) Cardio Equipment Recumbent Stepper (Sci-Fit) Duration (Minutes) 10 Resistance 2.0 Seat Position 13 Gym Equipment Shuttle Recovery Unilateral Squats Resistance 37 Reps/Time 10x2 Bilateral Squats Resistance 75 Reps/Time 10x2 Therapeutic Exercises Supine Exercises HS stretch Reps/Minutes 2x Comments manual, patient laying on shuttle leg press Sitting Exercises hip ab/ER Resistance L2 TB Reps/Minutes 10x ball squeeze Equipment Used ball Reps/Minutes 10x Standing Exercises hip flexor stretch Standing Exercise Name with gluteal isometric Reps/Minutes 3x Manual Therapy Treatment Soft Tissue Mobilization lumbar paraspinals, piriformis Mobilization Type Myofascial Release,Rolling, Strumming Intensity/Depth Moderate Body Position Sitting Taping 1 Body Location bilateral lumbar paraspinals Treatment Focus inhibition, pain reduction Type of Tape kinesiotape Skin Inspection intact Comments paper off tension PT-OP-R Modalities Start: 01/14/21 08:36 Freq: Status: Active Protocol: Document 06/25/21 13:08 [facility] (Rec: 06/25/21 13:28 [facility] [id number]) Electric Stimulation Electric Stimulation Interferential Current (IFC) Body Location bilateral lumbar paraspinals Duration (Minutes) 15 Target/Sweep Sweep High/Low High Patient Position Sitting Combined With Heat/Cold Hot Pack Ultrasound Therapy Treatment Back Treatment Duration (minutes) 8 Patient Position Sitting Coupling Medium Ultrasound Gel Frequency Setting (mHz) 1 Mode Setting Continuous Duty Cycle 100% Intensity Setting (w/cm2) 1.4 Comments bilateral lumbar paraspinals PT-OP-T Assessment and Plan Start: 01/14/21 08:36 Freq: Status: Active Protocol: Document 06/25/21 13:08 [facility] (Rec: 06/25/21 13:28 [facility] [id number]) Physical Therapy Assessment Goals range of motion Impairment stiffness throughout patient's trunk and hips Short Term Goal (STG) Instruct in HEP to address soft tissue mobility impairments STG Duration goal met Care Home Goal (LTG) Patient to demonstrate improvements in overall flexibility throughout trunk and hips and be safe and independent with HEP and aquatic exercise program for long-term fitness and pain management. 04/17/21: has not yet started aquatic exercise program; reports he plans to next week. He has had good compliance to HEP. LTG Duration 06/16/21 Strength Impairment weakness core and hips Short Term Goal (STG) Patient to begin land and aquatic exercise to address impairments in core and hip muscle strength with good tolerance 03/24/21: goal progress, hasn't started aquatic exercise yet 04/17/21: to start aquatic exercise next week. 06/17/21: due to lung diagnosis patient has not started back at pool for aquatic exercises STG Duration 05/01/21 Care Home Goal (LTG) Improve strength to at least 4 +/5 throughout trunk and LE's with patient demonstrating safety and independence with HEP and aquatic exercise program for long-term fitness and pain management. 03/21/21: some goal progress 04/17/21: good goal progress, strength improved to 4/5 except hip extension 4-/5 06/17/21: strength 4+/5 except hip extension still 4-/5 LTG Duration 07/03/21 Pain Impairment Pain level 7/10 diana lumbar spine and 6/10 diana cervical spine Short Term Goal (STG) Decrease pain to no greater than 5/10 09/07/19: goal progress, 6/10 03/21/21: pain level variable, still up to 8/10 at times, more often recently at 4-5/10 04/17/21: pain varies from 2-8/ 10 lumbar spine, 2 to 4/10 right th STG Duration not fully met Folder Stitcher Operator Goal (LTG) Decrease pain to no greater than 3/10 04/17/21: goal progress as above 06/17/21: pain right thigh decreased to 2/10 with self- taping with kinesiotape. Pain lumbar spine still varies from 2-8/10, decreased with PT . LTG Duration 07/03/21 Gait Impairment Requires use of walker, unable to walk community distances Short Term Goal (STG) Patient able to walk community distances with FWW with with minimal to no increase in pain. 03/21/21: patient ambulated from parking lot to waiting room, then into PT gym without using assistive device. Patient reports it is harder and he feels more pain, but wants to be able to do. Wants to go golfing again. 04/17/21: has played a couple rounds of golf without reporting increase in pain, as long as he stands only briefly to hit ball, then sits back in cart. 06/17: able to ambulate short distances using cane STG Duration goal progress, limited to 10 min Folder Stitcher Operator Goal (LTG) Patient able to ambulate with cane device for short community distances 03/21/21: only tolerates very short community distances (ie 100' or less), 04/17/21: using primarily cane, occasionally able to ambulate without device at this time, and demonstrating increase in speed 06/17/21: limited to 10 minutes of standing or walking, able to use cane. moderate forward flexion at trunk. LTG Duration 07/03/21 Activity tolerance Impairment Oswestry disability index score 48% Short Term Goal (STG) Decrease Oswestry score to no greater than 38% as measure of improved patient tolerance for usual daily activities 09/07/19: 52% 03/21/21: decreased to 44%, goal progress 04/17/21:decreased to 38% STG Duration goal progress Folder Stitcher Operator Goal (LTG) Decrease Oswestry score to no greater than 25% as measure of improved activity tolerance 06/17/21: decreased to 40% LTG Duration 07/03/21 Progress Towards Goals Progress Towards Goals Slow Progress due to Medical Issues Assessment Summary Assessment side effects from medications causing patient not to feel well. Has been compliant to HEP. BP 90/54. Less time at highest pain level. Physical Therapy Plan Frequency and Duration Frequency of Treatment 2x/Week Duration of Treatment 4 weeks Plan of Care Start Date 06/17/21 Plan of Care End Date 07/18/21 Therapeutic Interventions Therapeutic Interventions Aquatic Therapy,Gait Training, Home Exercise Program,Manual Therapy,Neuromuscular Re- education,Patient/Caregiver Education,Self-Care/Home Management,Soft Tissue Mobilization,Taping, Therapeutic Activities, Therapeutic Exercises Modalities Electric Stimulation,Hot Packs ,Infrared Therapy,Ultrasound Next Visit Focus/Plan Next Note Type Treatment Note Next Visit Plan Continue to progress therapeutic exercise program as tolerated to help patient improve his activity tolerance and decrease his pain.
--- NOTE | 2021-06-27 16:39 | PT.OTN ---
Current Diagnoses Chronic pain syndrome (06/27/21) Radiculopathy, lumbar region (06/27/21) Cervicalgia (06/27/21) Iliotibial band syndrome, right leg (06/27/21) Arthrodesis status (06/27/21) Other specified postprocedural states (06/27/21) Physical Therapy Treatment Note PT-OP-A Visit Information Start: 01/14/21 08:36 Freq: Status: Active Protocol: Document 06/27/21 14:39 [facility] (Rec: 06/27/21 15:20 [facility] [id number]) Out-Patient Physical Therapy Visit Information Visit Information Visit Type Treatment Note Visit Start Time 14:30 Visit Stop Time 15:30 Total Visit Minutes 60 Visit Number 23 Precautions Precautions history of fusion c/s and l/s with metal. PT-OP-B Current Condition Start: 01/14/21 08:36 Freq: Status: Active Protocol: Document 01/17/21 14:31 [facility] (Rec: 01/17/21 16:09 [facility] [id number]) Current Condition History of Current Condition Onset Date 1 year Current Complaints worsening LBP and neck pain and weakness arms and legs. History of Current Condition neck and back pain progressisvely worsening with decreased activity tolerance. Unable to golf any longer. Tried to drive to [place] 2018, couldn't make it due to pain. Last year coming back from [place] things deteriorated more. but was able to make it back. Numbness and tingling occasionally in hands. States legs give out occasionally and also spasm; states leg spasm in bed hurt his back a few nights ago. Uses walker to go any distance otherwise uses cane or furniture at home . Not currently doing any exercises, can walk about 75' at a time. Stopped doing aquatic exercise due to pool closure as result of Covid-19 and hasn't restarted. Admits to feeling some depressed/ disappointed. States Dr. Tirado recomended he look at going to assisted living and he plans to check out a few facilities in [place] close to his daughter. Prior Treatments and Tests No recent MRI or x-rays chest x-ray 6 months ago negative, states heart and lungs stable. Saw Dr. Littlejohn and 1 year ago; state nothing can be done Seeing Dr. Tirado: having osteopathic treatments; seems to help a little Treatment Goals Patient/Caregiver Goals Decrease pain, improve activity tolerance and function Prior Functional Status Baseline Function- ADL's Modified Independent Baseline Function- Mobility Modified Independent Baseline Function- Gait independent with device community distances Baseline Function- Work/School retired Baseline Function- Recreation/Hobbies restoring cars, golf Current Functional Impairments (Reported) Functional Limitations- ADL's increased time, more painful Functional Limitations- Mobility/Gait 75' with FWW max Functional Limitations- Recreation/ unable Hobbies PT-OP-C Subjective Start: 01/14/21 08:36 Freq: Status: Active Protocol: Document 06/27/21 14:39 [facility] (Rec: 06/27/21 15:20 [facility] [id number]) OP-PT Subjective Patient Comments Patient Comments Went to see care home apartment in [place] with his daughter yesterday. 4 levels of care. [place] [facility]. Put in a deposit, is 23 on waiting list. Not ready to go yet, so it's good there is a waiting list. Was gone all day yesterday, very tired today. Nauseated from his medication. PT-OP-G Mobility & Gait Start: 01/14/21 08:36 Freq: Status: Active Protocol: Document 01/17/21 14:31 [facility] (Rec: 01/17/21 16:09 [facility] [id number]) OP Gait Assessment Gait Gait Assistance Required: Independent Distance (Feet) 75 Gait Deviations General Gait Pattern Decreased Stride Length, Decreased Feet Clearance, Flexed Trunk Factors Limiting Gait Function Factors Limiting Gait Function Decreased Activity Tolerance, Decreased Strength,Pain PT-OP-J Posture/Palpation/Skin Start: 01/14/21 08:36 Freq: Status: Active Protocol: Document 01/17/21 14:31 [facility] (Rec: 01/17/21 16:09 [facility] [id number]) Posture Evaluation Position Standing Head/C-Spine Posture Forward Head T-Spine Posture Increased Kyphosis L-Spine Posture Decreased Lordosis Scapula Posture (L) Protracted,(R) Protracted Arm Posture (L) Internally Rotated,(R) Internally Rotated Pelvis Posture (L) Rotated Anterior,(R) Rotated Anterior Hip Posture (L) Flexed,(R) Flexed Knee Posture (L) Excess Flexion,(R) Excess Flexion Ankle/Foot Posture (L) Forefoot Eversion,(R) Forefoot Eversion Palpation Assessment Location bilateral cervical paraspinals, UT Palpation Findings Soft Tissue Tightness,Muscle Guarding,Tenderness diana lumbar paraspinals Palpation Findings Soft Tissue Tightness,Muscle Guarding,Tenderness Palpation Details tight diana, right greater than left PT-OP-K Range of Motion Start: 01/14/21 08:36 Freq: Status: Active Protocol: Document 01/17/21 14:31 [facility] (Rec: 01/17/21 16:09 [facility] [id number]) Cervical Spine Range of Motion Cervical Spine Active Degrees Testing Position Sitting Flexion 58 Extension 5 Rotation Left 27 Rotation Right 25 Lateral Flexion Left 14 Lateral Flexion Right 17 ROM Limitations Soft Tissue Tightness,Bony Restriction,Pain Lumbar Spine Range of Motion Lumbar Spine Active Degrees Flexion 20 Extension 0 Rotation Left 15 Rotation Right 15 Lateral Flexion Left 25 Lateral Flexion Right 25 Comments -10 deg ext with c/o increased pain Hip Goniometric Range of Motion Hip Left Flexion w/Knee Flexed 105 Straight Leg Raise 45 Internal Rotation 25 External Rotation 70 Right Flexion w/Knee Flexed 110 Straight Leg Raise 45 Internal Rotation 15 External Rotation 20 Hip ROM Limitations Comments -5 diana hip ext PT-OP-L Special Tests Start: 01/14/21 08:36 Freq: Status: Active Protocol: Document 01/17/21 14:31 [facility] (Rec: 01/17/21 16:09 [facility] [id number]) Special Tests Lumbar Spine Special Tests Manual Traction Test Results positive for increasing pain Horacio Test Results positive for hip flexor tightness diana Straight Leg Raise Test Results positive for muscle tightness not radicular pain Compression Test Results positive right Comments pain radiating to right posterior knee Hip Special Tests Piriformis Test Results positive right Scour Test Test Results negative diana PT-OP-M Strength Start: 01/14/21 08:36 Freq: Status: Active Protocol: Document 01/17/21 14:31 [facility] (Rec: 01/17/21 16:09 [facility] [id number]) Cervical Spine Strength Cervical Spine Manual Muscle Testing Flexion (C1-2) 4 Good Extension 4- Good- Rotation Left 4 Good Rotation Right 4 Good Lateral Flexion Left (C3) 4 Good Lateral Flexion Right (C3) 4 Good Trunk Strength Trunk Manual Muscle Testing Flexion 3+ Fair+ Extension 3+ Fair+ Rotation Left 4- Good- Rotation Right 4- Good- Lateral Flexion Left 4- Good- Lateral Flexion Right 4- Good- Shoulder Strength Shoulder Manual Muscle Testing diana Flexion 4 Good Extension 4- Good- External Rotation 4- Good- Internal Rotation 4- Good- Elbow/Forearm Strength Elbow and Forearm Manual Muscle Testing diana Flexion (C6) 4 Good Extension (C7) 4 Good PT-OP-Q Treatments Start: 01/14/21 08:36 Freq: Status: Active Protocol: Document 06/27/21 14:39 [facility] (Rec: 06/27/21 15:20 [facility] [id number]) Cardio Equipment Recumbent Stepper (Sci-Fit) Duration (Minutes) 10 Resistance 2.0 Seat Position 13 Gym Equipment Shuttle Recovery Unilateral Squats Resistance 37 Reps/Time 10x2 Bilateral Squats Resistance 75 Reps/Time 10x2 Therapeutic Exercises Supine Exercises HS stretch Reps/Minutes 2x Comments manual, patient laying on shuttle leg press Sitting Exercises hip ab/ER Resistance L2 TB Reps/Minutes 10x ball squeeze Equipment Used ball Reps/Minutes 10x Standing Exercises hip flexor stretch Standing Exercise Name with gluteal isometric Reps/Minutes 3x Manual Therapy Treatment Soft Tissue Mobilization lumbar paraspinals, piriformis Mobilization Type Myofascial Release,Rolling, Strumming Intensity/Depth Moderate Body Position Sitting Taping 1 Body Location bilateral lumbar paraspinals Treatment Focus inhibition, pain reduction Type of Tape kinesiotape Skin Inspection intact Comments paper off tension PT-OP-R Modalities Start: 01/14/21 08:36 Freq: Status: Active Protocol: Document 06/27/21 14:39 [facility] (Rec: 06/27/21 15:20 [facility] [id number]) Electric Stimulation Electric Stimulation Interferential Current (IFC) Body Location bilateral lumbar paraspinals Duration (Minutes) 15 Target/Sweep Sweep High/Low High Patient Position Sitting Combined With Heat/Cold Hot Pack Ultrasound Therapy Treatment Back Treatment Duration (minutes) 8 Patient Position Sitting Coupling Medium Ultrasound Gel Frequency Setting (mHz) 1 Mode Setting Continuous Duty Cycle 100% Intensity Setting (w/cm2) 1.4 Comments bilateral lumbar paraspinals PT-OP-T Assessment and Plan Start: 01/14/21 08:36 Freq: Status: Active Protocol: Document 06/27/21 14:39 [facility] (Rec: 06/27/21 15:20 [facility] [id number]) Physical Therapy Assessment Goals range of motion Impairment stiffness throughout patient's trunk and hips Short Term Goal (STG) Instruct in HEP to address soft tissue mobility impairments STG Duration goal met Rn Clinical Resource Goal (LTG) Patient to demonstrate improvements in overall flexibility throughout trunk and hips and be safe and independent with HEP and aquatic exercise program for long-term fitness and pain management. 04/17/21: has not yet started aquatic exercise program; reports he plans to next week. He has had good compliance to HEP. LTG Duration 06/16/21 Strength Impairment weakness core and hips Short Term Goal (STG) Patient to begin land and aquatic exercise to address impairments in core and hip muscle strength with good tolerance 03/24/21: goal progress, hasn't started aquatic exercise yet 04/17/21: to start aquatic exercise next week. 06/17/21: due to lung diagnosis patient has not started back at pool for aquatic exercises STG Duration 05/01/21 Rn Clinical Resource Goal (LTG) Improve strength to at least 4 +/5 throughout trunk and LE's with patient demonstrating safety and independence with HEP and aquatic exercise program for long-term fitness and pain management. 03/21/21: some goal progress 04/17/21: good goal progress, strength improved to 4/5 except hip extension 4-/5 06/17/21: strength 4+/5 except hip extension still 4-/5 LTG Duration 07/03/21 Pain Impairment Pain level 7/10 diana lumbar spine and 6/10 diana cervical spine Short Term Goal (STG) Decrease pain to no greater than 5/10 09/07/19: goal progress, 6/10 03/21/21: pain level variable, still up to 8/10 at times, more often recently at 4-5/10 04/17/21: pain varies from 2-8/ 10 lumbar spine, 2 to 4/10 right th STG Duration not fully met Residential Goal (LTG) Decrease pain to no greater than 3/10 04/17/21: goal progress as above 06/17/21: pain right thigh decreased to 2/10 with self- taping with kinesiotape. Pain lumbar spine still varies from 2-8/10, decreased with PT . LTG Duration 07/03/21 Gait Impairment Requires use of walker, unable to walk community distances Short Term Goal (STG) Patient able to walk community distances with FWW with with minimal to no increase in pain. 03/21/21: patient ambulated from parking lot to waiting room, then into PT gym without using assistive device. Patient reports it is harder and he feels more pain, but wants to be able to do. Wants to go golfing again. 04/17/21: has played a couple rounds of golf without reporting increase in pain, as long as he stands only briefly to hit ball, then sits back in cart. 06/17: able to ambulate short distances using cane STG Duration goal progress, limited to 10 min Residential Goal (LTG) Patient able to ambulate with cane device for short community distances 03/21/21: only tolerates very short community distances (ie 100' or less), 04/17/21: using primarily cane, occasionally able to ambulate without device at this time, and demonstrating increase in speed 06/17/21: limited to 10 minutes of standing or walking, able to use cane. moderate forward flexion at trunk. LTG Duration 07/03/21 Activity tolerance Impairment Oswestry disability index score 48% Short Term Goal (STG) Decrease Oswestry score to no greater than 38% as measure of improved patient tolerance for usual daily activities 09/07/19: 52% 03/21/21: decreased to 44%, goal progress 04/17/21:decreased to 38% STG Duration goal progress Residential Goal (LTG) Decrease Oswestry score to no greater than 25% as measure of improved activity tolerance 06/17/21: decreased to 40% LTG Duration 07/03/21 Assessment Summary Assessment Patient fatigued, lower exercise tolerance today. Physical Therapy Plan Frequency and Duration Frequency of Treatment 2x/Week Duration of Treatment 4 weeks Plan of Care Start Date 06/17/21 Plan of Care End Date 07/18/21 Therapeutic Interventions Therapeutic Interventions Aquatic Therapy,Gait Training, Home Exercise Program,Manual Therapy,Neuromuscular Re- education,Patient/Caregiver Education,Self-Care/Home Management,Soft Tissue Mobilization,Taping, Therapeutic Activities, Therapeutic Exercises Modalities Electric Stimulation,Hot Packs ,Infrared Therapy,Ultrasound Next Visit Focus/Plan Next Note Type Treatment Note Next Visit Plan Progression of ther ex as tolerated for strengthening, flexibility, core stabilization,
--- NOTE | 2021-07-03 17:16 | PT.OTN ---
Current Diagnoses Chronic pain syndrome (07/03/21) Radiculopathy, lumbar region (07/03/21) Cervicalgia (07/03/21) Iliotibial band syndrome, right leg (07/03/21) Arthrodesis status (07/03/21) Other specified postprocedural states (07/03/21) Physical Therapy Treatment Note PT-OP-A Visit Information Start: 01/14/21 08:36 Freq: Status: Active Protocol: Document 07/03/21 15:26 [facility] (Rec: 07/03/21 15:36 [facility] [id number]) Out-Patient Physical Therapy Visit Information Visit Information Visit Type Treatment Note Visit Start Time 15:15 Visit Stop Time 16:15 Total Visit Minutes 60 Visit Number 24 Precautions Precautions history of fusion c/s and l/s with metal. PT-OP-B Current Condition Start: 01/14/21 08:36 Freq: Status: Active Protocol: Document 01/17/21 14:31 [facility] (Rec: 01/17/21 16:09 [facility] [id number]) Current Condition History of Current Condition Onset Date 1 year Current Complaints worsening LBP and neck pain and weakness arms and legs. History of Current Condition neck and back pain progressisvely worsening with decreased activity tolerance. Unable to golf any longer. Tried to drive to [place] 2018, couldn't make it due to pain. Last year coming back from [place] things deteriorated more. but was able to make it back. Numbness and tingling occasionally in hands. States legs give out occasionally and also spasm; states leg spasm in bed hurt his back a few nights ago. Uses walker to go any distance otherwise uses cane or furniture at home . Not currently doing any exercises, can walk about 75' at a time. Stopped doing aquatic exercise due to pool closure as result of Covid-19 and hasn't restarted. Admits to feeling some depressed/ disappointed. States Dr. Tirado recomended he look at going to assisted living and he plans to check out a few facilities in [place] close to his daughter. Prior Treatments and Tests No recent MRI or x-rays chest x-ray 6 months ago negative, states heart and lungs stable. Saw Dr. Littlejohn and 1 year ago; state nothing can be done Seeing Dr. Tirado: having osteopathic treatments; seems to help a little Treatment Goals Patient/Caregiver Goals Decrease pain, improve activity tolerance and function Prior Functional Status Baseline Function- ADL's Modified Independent Baseline Function- Mobility Modified Independent Baseline Function- Gait independent with device community distances Baseline Function- Work/School retired Baseline Function- Recreation/Hobbies restoring cars, golf Current Functional Impairments (Reported) Functional Limitations- ADL's increased time, more painful Functional Limitations- Mobility/Gait 75' with FWW max Functional Limitations- Recreation/ unable Hobbies PT-OP-C Subjective Start: 01/14/21 08:36 Freq: Status: Active Protocol: Document 07/03/21 15:26 [facility] (Rec: 07/03/21 15:36 [facility] [id number]) OP-PT Subjective Patient Comments Patient Comments 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 Monitoring BP 110/70 generally, no really high measurements. Back pain worse today for no known reason. Washed car off with hosebut nothing dufferent than usual. PT-OP-G Mobility & Gait Start: 01/14/21 08:36 Freq: Status: Active Protocol: Document 01/17/21 14:31 [facility] (Rec: 01/17/21 16:09 [facility] [id number]) OP Gait Assessment Gait Gait Assistance Required: Independent Distance (Feet) 75 Gait Deviations General Gait Pattern Decreased Stride Length, Decreased Feet Clearance, Flexed Trunk Factors Limiting Gait Function Factors Limiting Gait Function Decreased Activity Tolerance, Decreased Strength,Pain PT-OP-J Posture/Palpation/Skin Start: 01/14/21 08:36 Freq: Status: Active Protocol: Document 01/17/21 14:31 [facility] (Rec: 01/17/21 16:09 [facility] [id number]) Posture Evaluation Position Standing Head/C-Spine Posture Forward Head T-Spine Posture Increased Kyphosis L-Spine Posture Decreased Lordosis Scapula Posture (L) Protracted,(R) Protracted Arm Posture (L) Internally Rotated,(R) Internally Rotated Pelvis Posture (L) Rotated Anterior,(R) Rotated Anterior Hip Posture (L) Flexed,(R) Flexed Knee Posture (L) Excess Flexion,(R) Excess Flexion Ankle/Foot Posture (L) Forefoot Eversion,(R) Forefoot Eversion Palpation Assessment Location bilateral cervical paraspinals, UT Palpation Findings Soft Tissue Tightness,Muscle Guarding,Tenderness diana lumbar paraspinals Palpation Findings Soft Tissue Tightness,Muscle Guarding,Tenderness Palpation Details tight diana, right greater than left PT-OP-K Range of Motion Start: 01/14/21 08:36 Freq: Status: Active Protocol: Document 01/17/21 14:31 [facility] (Rec: 01/17/21 16:09 [facility] [id number]) Cervical Spine Range of Motion Cervical Spine Active Degrees Testing Position Sitting Flexion 58 Extension 5 Rotation Left 27 Rotation Right 25 Lateral Flexion Left 14 Lateral Flexion Right 17 ROM Limitations Soft Tissue Tightness,Bony Restriction,Pain Lumbar Spine Range of Motion Lumbar Spine Active Degrees Flexion 20 Extension 0 Rotation Left 15 Rotation Right 15 Lateral Flexion Left 25 Lateral Flexion Right 25 Comments -10 deg ext with c/o increased pain Hip Goniometric Range of Motion Hip Left Flexion w/Knee Flexed 105 Straight Leg Raise 45 Internal Rotation 25 External Rotation 70 Right Flexion w/Knee Flexed 110 Straight Leg Raise 45 Internal Rotation 15 External Rotation 20 Hip ROM Limitations Comments -5 diana hip ext PT-OP-L Special Tests Start: 01/14/21 08:36 Freq: Status: Active Protocol: Document 01/17/21 14:31 [facility] (Rec: 01/17/21 16:09 [facility] [id number]) Special Tests Lumbar Spine Special Tests Manual Traction Test Results positive for increasing pain Horacio Test Results positive for hip flexor tightness diana Straight Leg Raise Test Results positive for muscle tightness not radicular pain Compression Test Results positive right Comments pain radiating to right posterior knee Hip Special Tests Piriformis Test Results positive right Scour Test Test Results negative diana PT-OP-M Strength Start: 01/14/21 08:36 Freq: Status: Active Protocol: Document 01/17/21 14:31 [facility] (Rec: 01/17/21 16:09 [facility] [id number]) Cervical Spine Strength Cervical Spine Manual Muscle Testing Flexion (C1-2) 4 Good Extension 4- Good- Rotation Left 4 Good Rotation Right 4 Good Lateral Flexion Left (C3) 4 Good Lateral Flexion Right (C3) 4 Good Trunk Strength Trunk Manual Muscle Testing Flexion 3+ Fair+ Extension 3+ Fair+ Rotation Left 4- Good- Rotation Right 4- Good- Lateral Flexion Left 4- Good- Lateral Flexion Right 4- Good- Shoulder Strength Shoulder Manual Muscle Testing diana Flexion 4 Good Extension 4- Good- External Rotation 4- Good- Internal Rotation 4- Good- Elbow/Forearm Strength Elbow and Forearm Manual Muscle Testing diana Flexion (C6) 4 Good Extension (C7) 4 Good PT-OP-Q Treatments Start: 01/14/21 08:36 Freq: Status: Active Protocol: Document 07/03/21 15:26 [facility] (Rec: 07/03/21 15:36 [facility] [id number]) Cardio Equipment Recumbent Stepper (Sci-Fit) Duration (Minutes) 10 Resistance 2.0 Seat Position 13 Gym Equipment Shuttle Recovery Unilateral Squats Resistance 37 Reps/Time 10x2 Bilateral Squats Resistance 75 Reps/Time 10x2 Therapeutic Exercises Supine Exercises IT band stretch Side bilateral Comments manual SKTC Reps/Minutes 2x HS stretch Reps/Minutes 2x Comments manual, patient laying on shuttle leg press Sitting Exercises hip ab/ER Resistance L2 TB Reps/Minutes 10x ball squeeze Equipment Used ball Reps/Minutes 10x Standing Exercises hip flexor stretch Standing Exercise Name with gluteal isometric Reps/Minutes 3x Manual Therapy Treatment Soft Tissue Mobilization lumbar paraspinals, piriformis Mobilization Type Myofascial Release,Rolling, Strumming Intensity/Depth Moderate Body Position Sitting Taping 1 Body Location bilateral lumbar paraspinals Treatment Focus inhibition, pain reduction Type of Tape kinesiotape Skin Inspection intact Comments paper off tension PT-OP-R Modalities Start: 01/14/21 08:36 Freq: Status: Active Protocol: Document 07/03/21 15:26 [facility] (Rec: 07/03/21 15:36 [facility] [id number]) Electric Stimulation Electric Stimulation Interferential Current (IFC) Body Location bilateral lumbar paraspinals Duration (Minutes) 15 Target/Sweep Sweep High/Low High Patient Position Sitting Combined With Heat/Cold Hot Pack Ultrasound Therapy Treatment Back Treatment Duration (minutes) 8 Patient Position Sitting Coupling Medium Ultrasound Gel Frequency Setting (mHz) 1 Mode Setting Continuous Duty Cycle 100% Intensity Setting (w/cm2) 1.4 Comments bilateral lumbar paraspinals PT-OP-T Assessment and Plan Start: 01/14/21 08:36 Freq: Status: Active Protocol: Document 07/03/21 15:26 [facility] (Rec: 07/03/21 15:36 [facility] [id number]) Physical Therapy Assessment Goals range of motion Impairment stiffness throughout patient's trunk and hips Short Term Goal (STG) Instruct in HEP to address soft tissue mobility impairments STG Duration goal met Senior Living Goal (LTG) Patient to demonstrate improvements in overall flexibility throughout trunk and hips and be safe and independent with HEP and aquatic exercise program for long-term fitness and pain management. 04/17/21: has not yet started aquatic exercise program; reports he plans to next week. He has had good compliance to HEP. LTG Duration 07/18/21 Strength Impairment weakness core and hips Short Term Goal (STG) Patient to begin land and aquatic exercise to address impairments in core and hip muscle strength with good tolerance 03/24/21: goal progress, hasn't started aquatic exercise yet 04/17/21: to start aquatic exercise next week. 06/17/21: due to lung diagnosis patient has not started back at pool for aquatic exercises STG Duration 05/01/21 Senior Living Goal (LTG) Improve strength to at least 4 +/5 throughout trunk and LE's with patient demonstrating safety and independence with HEP and aquatic exercise program for long-term fitness and pain management. 03/21/21: some goal progress 04/17/21: good goal progress, strength improved to 4/5 except hip extension 4-/5 06/17/21: strength 4+/5 except hip extension still 4-/5 LTG Duration 07/18/21 Pain Impairment Pain level 7/10 diana lumbar spine and 6/10 diana cervical spine Short Term Goal (STG) Decrease pain to no greater than 5/10 09/07/19: goal progress, 6/10 03/21/21: pain level variable, still up to 8/10 at times, more often recently at 4-5/10 04/17/21: pain varies from 2-8/ 10 lumbar spine, 2 to 4/10 right th STG Duration not fully met Engineering Administrator Goal (LTG) Decrease pain to no greater than 3/10 04/17/21: goal progress as above 06/17/21: pain right thigh decreased to 2/10 with self- taping with kinesiotape. Pain lumbar spine still varies from 2-8/10, decreased with PT . LTG Duration 07/18/21 Gait Impairment Requires use of walker, unable to walk community distances Short Term Goal (STG) Patient able to walk community distances with FWW with with minimal to no increase in pain. 03/21/21: patient ambulated from parking lot to waiting room, then into PT gym without using assistive device. Patient reports it is harder and he feels more pain, but wants to be able to do. Wants to go golfing again. 04/17/21: has played a couple rounds of golf without reporting increase in pain, as long as he stands only briefly to hit ball, then sits back in cart. 06/17: able to ambulate short distances using cane STG Duration goal progress, limited to 10 min Engineering Administrator Goal (LTG) Patient able to ambulate with cane device for short community distances 03/21/21: only tolerates very short community distances (ie 100' or less), 04/17/21: using primarily cane, occasionally able to ambulate without device at this time, and demonstrating increase in speed 06/17/21: limited to 10 minutes of standing or walking, able to use cane. moderate forward flexion at trunk. LTG Duration 07/18/21 Activity tolerance Impairment Oswestry disability index score 48% Short Term Goal (STG) Decrease Oswestry score to no greater than 38% as measure of improved patient tolerance for usual daily activities 09/07/19: 52% 03/21/21: decreased to 44%, goal progress 04/17/21:decreased to 38% STG Duration goal progress Senior Living Goal (LTG) Decrease Oswestry score to no greater than 25% as measure of improved activity tolerance 06/17/21: decreased to 40% LTG Duration 07/18/21 Progress Towards Goals Progress Towards Goals Slow Progress due to Medical Issues Assessment Summary Assessment More pain today, no known reason. Increased lumbar paraspinal muscle tightness. Decreased pain with PT including increased stretching , increased DTM. Physical Therapy Plan Frequency and Duration Frequency of Treatment 2x/Week Duration of Treatment 4 weeks Plan of Care Start Date 06/17/21 Plan of Care End Date 07/18/21 Therapeutic Interventions Therapeutic Interventions Aquatic Therapy,Gait Training, Home Exercise Program,Manual Therapy,Neuromuscular Re- education,Patient/Caregiver Education,Self-Care/Home Management,Soft Tissue Mobilization,Taping, Therapeutic Activities, Therapeutic Exercises Modalities Electric Stimulation,Hot Packs ,Infrared Therapy,Ultrasound Next Visit Focus/Plan Next Note Type Treatment Note Next Visit Plan Review patient performance of HEP and ability to do postural correction.
--- NOTE | 2021-07-10 16:27 | PT.OTN ---
Current Diagnoses Chronic pain syndrome (07/10/21) Radiculopathy, lumbar region (07/10/21) Cervicalgia (07/10/21) Iliotibial band syndrome, right leg (07/10/21) Arthrodesis status (07/10/21) Other specified postprocedural states (07/10/21) Physical Therapy Treatment Note PT-OP-A Visit Information Start: 01/14/21 08:36 Freq: Status: Active Protocol: Document 07/10/21 15:21 [facility] (Rec: 07/10/21 15:42 [facility] [id number]) Out-Patient Physical Therapy Visit Information Visit Information Visit Type Treatment Note Visit Start Time 15:15 Visit Stop Time 16:15 Total Visit Minutes 60 Visit Number 25 Precautions Precautions history of fusion c/s and l/s with metal. PT-OP-B Current Condition Start: 01/14/21 08:36 Freq: Status: Active Protocol: Document 01/17/21 14:31 [facility] (Rec: 01/17/21 16:09 [facility] [id number]) Current Condition History of Current Condition Onset Date 1 year Current Complaints worsening LBP and neck pain and weakness arms and legs. History of Current Condition neck and back pain progressisvely worsening with decreased activity tolerance. Unable to golf any longer. Tried to drive to [place] 2018, couldn't make it due to pain. Last year coming back from [place] things deteriorated more. but was able to make it back. Numbness and tingling occasionally in hands. States legs give out occasionally and also spasm; states leg spasm in bed hurt his back a few nights ago. Uses walker to go any distance otherwise uses cane or furniture at home . Not currently doing any exercises, can walk about 75' at a time. Stopped doing aquatic exercise due to pool closure as result of Covid-19 and hasn't restarted. Admits to feeling some depressed/ disappointed. States Dr. Tirado recomended he look at going to assisted living and he plans to check out a few facilities in [place] close to his daughter. Prior Treatments and Tests No recent MRI or x-rays chest x-ray 6 months ago negative, states heart and lungs stable. Saw Dr. Littlejohn and 1 year ago; state nothing can be done Seeing Dr. Tirado: having osteopathic treatments; seems to help a little Treatment Goals Patient/Caregiver Goals Decrease pain, improve activity tolerance and function Prior Functional Status Baseline Function- ADL's Modified Independent Baseline Function- Mobility Modified Independent Baseline Function- Gait independent with device community distances Baseline Function- Work/School retired Baseline Function- Recreation/Hobbies restoring cars, golf Current Functional Impairments (Reported) Functional Limitations- ADL's increased time, more painful Functional Limitations- Mobility/Gait 75' with FWW max Functional Limitations- Recreation/ unable Hobbies PT-OP-C Subjective Start: 01/14/21 08:36 Freq: Status: Active Protocol: Document 07/10/21 15:21 [facility] (Rec: 07/10/21 15:42 [facility] [id number]) OP-PT Subjective Patient Comments Patient Comments BP running around 110/70, dizziness a little better, taking medication for nausea. 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 Exhausted from having to walk long distance yesterday into hospital ([facility]) Only a couple PT visits left before he goes on vacation for a couple months. PT-OP-G Mobility & Gait Start: 01/14/21 08:36 Freq: Status: Active Protocol: Document 01/17/21 14:31 [facility] (Rec: 01/17/21 16:09 [facility] [id number]) OP Gait Assessment Gait Gait Assistance Required: Independent Distance (Feet) 75 Gait Deviations General Gait Pattern Decreased Stride Length, Decreased Feet Clearance, Flexed Trunk Factors Limiting Gait Function Factors Limiting Gait Function Decreased Activity Tolerance, Decreased Strength,Pain PT-OP-J Posture/Palpation/Skin Start: 01/14/21 08:36 Freq: Status: Active Protocol: Document 01/17/21 14:31 [facility] (Rec: 01/17/21 16:09 [facility] [id number]) Posture Evaluation Position Standing Head/C-Spine Posture Forward Head T-Spine Posture Increased Kyphosis L-Spine Posture Decreased Lordosis Scapula Posture (L) Protracted,(R) Protracted Arm Posture (L) Internally Rotated,(R) Internally Rotated Pelvis Posture (L) Rotated Anterior,(R) Rotated Anterior Hip Posture (L) Flexed,(R) Flexed Knee Posture (L) Excess Flexion,(R) Excess Flexion Ankle/Foot Posture (L) Forefoot Eversion,(R) Forefoot Eversion Palpation Assessment Location bilateral cervical paraspinals, UT Palpation Findings Soft Tissue Tightness,Muscle Guarding,Tenderness diana lumbar paraspinals Palpation Findings Soft Tissue Tightness,Muscle Guarding,Tenderness Palpation Details tight diana, right greater than left PT-OP-K Range of Motion Start: 01/14/21 08:36 Freq: Status: Active Protocol: Document 01/17/21 14:31 [facility] (Rec: 01/17/21 16:09 [facility] [id number]) Cervical Spine Range of Motion Cervical Spine Active Degrees Testing Position Sitting Flexion 58 Extension 5 Rotation Left 27 Rotation Right 25 Lateral Flexion Left 14 Lateral Flexion Right 17 ROM Limitations Soft Tissue Tightness,Bony Restriction,Pain Lumbar Spine Range of Motion Lumbar Spine Active Degrees Flexion 20 Extension 0 Rotation Left 15 Rotation Right 15 Lateral Flexion Left 25 Lateral Flexion Right 25 Comments -10 deg ext with c/o increased pain Hip Goniometric Range of Motion Hip Left Flexion w/Knee Flexed 105 Straight Leg Raise 45 Internal Rotation 25 External Rotation 70 Right Flexion w/Knee Flexed 110 Straight Leg Raise 45 Internal Rotation 15 External Rotation 20 Hip ROM Limitations Comments -5 diana hip ext PT-OP-L Special Tests Start: 01/14/21 08:36 Freq: Status: Active Protocol: Document 01/17/21 14:31 [facility] (Rec: 01/17/21 16:09 [facility] [id number]) Special Tests Lumbar Spine Special Tests Manual Traction Test Results positive for increasing pain Horacio Test Results positive for hip flexor tightness diana Straight Leg Raise Test Results positive for muscle tightness not radicular pain Compression Test Results positive right Comments pain radiating to right posterior knee Hip Special Tests Piriformis Test Results positive right Scour Test Test Results negative diana PT-OP-M Strength Start: 01/14/21 08:36 Freq: Status: Active Protocol: Document 01/17/21 14:31 [facility] (Rec: 01/17/21 16:09 [facility] [id number]) Cervical Spine Strength Cervical Spine Manual Muscle Testing Flexion (C1-2) 4 Good Extension 4- Good- Rotation Left 4 Good Rotation Right 4 Good Lateral Flexion Left (C3) 4 Good Lateral Flexion Right (C3) 4 Good Trunk Strength Trunk Manual Muscle Testing Flexion 3+ Fair+ Extension 3+ Fair+ Rotation Left 4- Good- Rotation Right 4- Good- Lateral Flexion Left 4- Good- Lateral Flexion Right 4- Good- Shoulder Strength Shoulder Manual Muscle Testing diana Flexion 4 Good Extension 4- Good- External Rotation 4- Good- Internal Rotation 4- Good- Elbow/Forearm Strength Elbow and Forearm Manual Muscle Testing diana Flexion (C6) 4 Good Extension (C7) 4 Good PT-OP-Q Treatments Start: 01/14/21 08:36 Freq: Status: Active Protocol: Document 07/10/21 15:21 [facility] (Rec: 07/10/21 15:42 [facility] [id number]) Cardio Equipment Recumbent Stepper (Sci-Fit) Duration (Minutes) 10 Resistance 2.0 Seat Position 13 Gym Equipment Shuttle Recovery Unilateral Squats Resistance 37 Reps/Time 10x2 Bilateral Squats Resistance 75 Reps/Time 10x2 Therapeutic Exercises Supine Exercises IT band stretch Side bilateral Comments manual SKTC Reps/Minutes 2x Comments manual HS stretch Reps/Minutes 2x Comments manual, patient laying on shuttle leg press Sitting Exercises hip ab/ER Resistance L2 TB Reps/Minutes 10x2 ball squeeze Equipment Used ball Reps/Minutes 10x Standing Exercises hip flexor stretch Standing Exercise Name with gluteal isometric Reps/Minutes 3x Manual Therapy Treatment Soft Tissue Mobilization lumbar paraspinals, piriformis Mobilization Type Myofascial Release,Rolling, Strumming Intensity/Depth Moderate Body Position Sitting Taping 1 Body Location bilateral lumbar paraspinals Treatment Focus inhibition, pain reduction Type of Tape kinesiotape Skin Inspection intact Comments paper off tension PT-OP-R Modalities Start: 01/14/21 08:36 Freq: Status: Active Protocol: Document 07/10/21 15:21 [facility] (Rec: 07/10/21 15:42 [facility] [id number]) Electric Stimulation Electric Stimulation Interferential Current (IFC) Body Location bilateral lumbar paraspinals Duration (Minutes) 15 Target/Sweep Sweep High/Low High Patient Position Sitting Combined With Heat/Cold Hot Pack Ultrasound Therapy Treatment Back Treatment Duration (minutes) 8 Patient Position Sitting Coupling Medium Ultrasound Gel Frequency Setting (mHz) 1 Mode Setting Continuous Duty Cycle 100% Intensity Setting (w/cm2) 1.4 Comments bilateral lumbar paraspinals PT-OP-T Assessment and Plan Start: 01/14/21 08:36 Freq: Status: Active Protocol: Document 07/10/21 15:21 [facility] (Rec: 07/10/21 15:42 [facility] [id number]) Physical Therapy Assessment Goals range of motion Impairment stiffness throughout patient's trunk and hips Short Term Goal (STG) Instruct in HEP to address soft tissue mobility impairments STG Duration goal met Coverstitch Binder Goal (LTG) Patient to demonstrate improvements in overall flexibility throughout trunk and hips and be safe and independent with HEP and aquatic exercise program for long-term fitness and pain management. 04/17/21: has not yet started aquatic exercise program; reports he plans to next week. He has had good compliance to HEP. LTG Duration 07/18/21 Strength Impairment weakness core and hips Short Term Goal (STG) Patient to begin land and aquatic exercise to address impairments in core and hip muscle strength with good tolerance 03/24/21: goal progress, hasn't started aquatic exercise yet 04/17/21: to start aquatic exercise next week. 06/17/21: due to lung diagnosis patient has not started back at pool for aquatic exercises STG Duration 05/01/21 Usp Goal (LTG) Improve strength to at least 4 +/5 throughout trunk and LE's with patient demonstrating safety and independence with HEP and aquatic exercise program for long-term fitness and pain management. 03/21/21: some goal progress 04/17/21: good goal progress, strength improved to 4/5 except hip extension 4-/5 06/17/21: strength 4+/5 except hip extension still 4-/5 LTG Duration 07/18/21 Pain Impairment Pain level 7/10 diana lumbar spine and 6/10 diana cervical spine Short Term Goal (STG) Decrease pain to no greater than 5/10 09/07/19: goal progress, 6/10 03/21/21: pain level variable, still up to 8/10 at times, more often recently at 4-5/10 04/17/21: pain varies from 2-8/ 10 lumbar spine, 2 to 4/10 right th STG Duration not fully met Coverstitch Binder Goal (LTG) Decrease pain to no greater than 3/10 04/17/21: goal progress as above 06/17/21: pain right thigh decreased to 2/10 with self- taping with kinesiotape. Pain lumbar spine still varies from 2-8/10, decreased with PT . LTG Duration 07/18/21 Gait Impairment Requires use of walker, unable to walk community distances Short Term Goal (STG) Patient able to walk community distances with FWW with with minimal to no increase in pain. 03/21/21: patient ambulated from parking lot to waiting room, then into PT gym without using assistive device. Patient reports it is harder and he feels more pain, but wants to be able to do. Wants to go golfing again. 04/17/21: has played a couple rounds of golf without reporting increase in pain, as long as he stands only briefly to hit ball, then sits back in cart. 06/17: able to ambulate short distances using cane STG Duration goal progress, limited to 10 min Coverstitch Binder Goal (LTG) Patient able to ambulate with cane device for short community distances 03/21/21: only tolerates very short community distances (ie 100' or less), 04/17/21: using primarily cane, occasionally able to ambulate without device at this time, and demonstrating increase in speed 06/17/21: limited to 10 minutes of standing or walking, able to use cane. moderate forward flexion at trunk. LTG Duration 07/18/21 Activity tolerance Impairment Oswestry disability index score 48% Short Term Goal (STG) Decrease Oswestry score to no greater than 38% as measure of improved patient tolerance for usual daily activities 09/07/19: 52% 03/21/21: decreased to 44%, goal progress 04/17/21:decreased to 38% STG Duration goal progress Usp Goal (LTG) Decrease Oswestry score to no greater than 25% as measure of improved activity tolerance 06/17/21: decreased to 40% LTG Duration 07/18/21 Progress Towards Goals Progress Towards Goals Slow Progress due to Medical Issues Assessment Summary Assessment Patient exhausted from medical appointment yesterday. Reports he really feels a difference with kinesiotape, more pain without. Doing HEP. Walking with [facility] Physical Therapy Plan Frequency and Duration Frequency of Treatment 2x/Week Duration of Treatment 4 weeks Plan of Care Start Date 06/17/21 Plan of Care End Date 07/18/21 Therapeutic Interventions Therapeutic Interventions Aquatic Therapy,Gait Training, Home Exercise Program,Manual Therapy,Neuromuscular Re- education,Patient/Caregiver Education,Self-Care/Home Management,Soft Tissue Mobilization,Taping, Therapeutic Activities, Therapeutic Exercises Modalities Electric Stimulation,Hot Packs ,Infrared Therapy,Ultrasound Next Visit Focus/Plan Next Note Type Treatment Note Next Visit Plan Review patient performance of HEP and ability to do postural correction.
--- NOTE | 2021-07-15 16:13 | PT.OTN ---
Current Diagnoses Chronic pain syndrome (07/15/21) Radiculopathy, lumbar region (07/15/21) Cervicalgia (07/15/21) Iliotibial band syndrome, right leg (07/15/21) Arthrodesis status (07/15/21) Other specified postprocedural states (07/15/21) Physical Therapy Treatment Note PT-OP-A Visit Information Start: 01/14/21 08:36 Freq: Status: Active Protocol: Document 07/15/21 15:08 [facility] (Rec: 07/15/21 16:12 [facility] [id number]) Out-Patient Physical Therapy Visit Information Visit Information Visit Type Treatment Note Visit Start Time 15:15 Visit Stop Time 16:15 Total Visit Minutes 60 Visit Number 26 Precautions Precautions history of fusion c/s and l/s with metal. PT-OP-B Current Condition Start: 01/14/21 08:36 Freq: Status: Active Protocol: Document 01/17/21 14:31 [facility] (Rec: 01/17/21 16:09 [facility] [id number]) Current Condition History of Current Condition Onset Date 1 year Current Complaints worsening LBP and neck pain and weakness arms and legs. History of Current Condition neck and back pain progressisvely worsening with decreased activity tolerance. Unable to golf any longer. Tried to drive to [place] 2018, couldn't make it due to pain. Last year coming back from [place] things deteriorated more. but was able to make it back. Numbness and tingling occasionally in hands. States legs give out occasionally and also spasm; states leg spasm in bed hurt his back a few nights ago. Uses walker to go any distance otherwise uses cane or furniture at home . Not currently doing any exercises, can walk about 75' at a time. Stopped doing aquatic exercise due to pool closure as result of Covid-19 and hasn't restarted. Admits to feeling some depressed/ disappointed. States Dr. Tirado recomended he look at going to assisted living and he plans to check out a few facilities in [place] close to his daughter. Prior Treatments and Tests No recent MRI or x-rays chest x-ray 6 months ago negative, states heart and lungs stable. Saw Dr. Littlejohn and 1 year ago; state nothing can be done Seeing Dr. Tirado: having osteopathic treatments; seems to help a little Treatment Goals Patient/Caregiver Goals Decrease pain, improve activity tolerance and function Prior Functional Status Baseline Function- ADL's Modified Independent Baseline Function- Mobility Modified Independent Baseline Function- Gait independent with device community distances Baseline Function- Work/School retired Baseline Function- Recreation/Hobbies restoring cars, golf Current Functional Impairments (Reported) Functional Limitations- ADL's increased time, more painful Functional Limitations- Mobility/Gait 75' with FWW max Functional Limitations- Recreation/ unable Hobbies PT-OP-C Subjective Start: 01/14/21 08:36 Freq: Status: Active Protocol: Document 07/15/21 15:08 [facility] (Rec: 07/15/21 16:12 [facility] [id number]) OP-PT Subjective Patient Comments Patient Comments Tired today, normal pain. Didn't warm up prior to golfing. PT-OP-G Mobility & Gait Start: 01/14/21 08:36 Freq: Status: Active Protocol: Document 01/17/21 14:31 [facility] (Rec: 01/17/21 16:09 [facility] [id number]) OP Gait Assessment Gait Gait Assistance Required: Independent Distance (Feet) 75 Gait Deviations General Gait Pattern Decreased Stride Length, Decreased Feet Clearance, Flexed Trunk Factors Limiting Gait Function Factors Limiting Gait Function Decreased Activity Tolerance, Decreased Strength,Pain PT-OP-J Posture/Palpation/Skin Start: 01/14/21 08:36 Freq: Status: Active Protocol: Document 01/17/21 14:31 [facility] (Rec: 01/17/21 16:09 [facility] [id number]) Posture Evaluation Position Standing Head/C-Spine Posture Forward Head T-Spine Posture Increased Kyphosis L-Spine Posture Decreased Lordosis Scapula Posture (L) Protracted,(R) Protracted Arm Posture (L) Internally Rotated,(R) Internally Rotated Pelvis Posture (L) Rotated Anterior,(R) Rotated Anterior Hip Posture (L) Flexed,(R) Flexed Knee Posture (L) Excess Flexion,(R) Excess Flexion Ankle/Foot Posture (L) Forefoot Eversion,(R) Forefoot Eversion Palpation Assessment Location bilateral cervical paraspinals, UT Palpation Findings Soft Tissue Tightness,Muscle Guarding,Tenderness diana lumbar paraspinals Palpation Findings Soft Tissue Tightness,Muscle Guarding,Tenderness Palpation Details tight diana, right greater than left PT-OP-K Range of Motion Start: 01/14/21 08:36 Freq: Status: Active Protocol: Document 01/17/21 14:31 [facility] (Rec: 01/17/21 16:09 [facility] [id number]) Cervical Spine Range of Motion Cervical Spine Active Degrees Testing Position Sitting Flexion 58 Extension 5 Rotation Left 27 Rotation Right 25 Lateral Flexion Left 14 Lateral Flexion Right 17 ROM Limitations Soft Tissue Tightness,Bony Restriction,Pain Lumbar Spine Range of Motion Lumbar Spine Active Degrees Flexion 20 Extension 0 Rotation Left 15 Rotation Right 15 Lateral Flexion Left 25 Lateral Flexion Right 25 Comments -10 deg ext with c/o increased pain Hip Goniometric Range of Motion Hip Left Flexion w/Knee Flexed 105 Straight Leg Raise 45 Internal Rotation 25 External Rotation 70 Right Flexion w/Knee Flexed 110 Straight Leg Raise 45 Internal Rotation 15 External Rotation 20 Hip ROM Limitations Comments -5 diana hip ext PT-OP-L Special Tests Start: 01/14/21 08:36 Freq: Status: Active Protocol: Document 01/17/21 14:31 [facility] (Rec: 01/17/21 16:09 [facility] [id number]) Special Tests Lumbar Spine Special Tests Manual Traction Test Results positive for increasing pain Horacio Test Results positive for hip flexor tightness diana Straight Leg Raise Test Results positive for muscle tightness not radicular pain Compression Test Results positive right Comments pain radiating to right posterior knee Hip Special Tests Piriformis Test Results positive right Scour Test Test Results negative diana PT-OP-M Strength Start: 01/14/21 08:36 Freq: Status: Active Protocol: Document 01/17/21 14:31 [facility] (Rec: 01/17/21 16:09 [facility] [id number]) Cervical Spine Strength Cervical Spine Manual Muscle Testing Flexion (C1-2) 4 Good Extension 4- Good- Rotation Left 4 Good Rotation Right 4 Good Lateral Flexion Left (C3) 4 Good Lateral Flexion Right (C3) 4 Good Trunk Strength Trunk Manual Muscle Testing Flexion 3+ Fair+ Extension 3+ Fair+ Rotation Left 4- Good- Rotation Right 4- Good- Lateral Flexion Left 4- Good- Lateral Flexion Right 4- Good- Shoulder Strength Shoulder Manual Muscle Testing diana Flexion 4 Good Extension 4- Good- External Rotation 4- Good- Internal Rotation 4- Good- Elbow/Forearm Strength Elbow and Forearm Manual Muscle Testing diana Flexion (C6) 4 Good Extension (C7) 4 Good PT-OP-Q Treatments Start: 01/14/21 08:36 Freq: Status: Active Protocol: Document 07/15/21 15:08 [facility] (Rec: 07/15/21 16:12 [facility] [id number]) Cardio Equipment Recumbent Stepper (Sci-Fit) Duration (Minutes) 10 Resistance 2.0 Seat Position 13 Gym Equipment Shuttle Recovery Unilateral Squats Resistance 37 Reps/Time 10x2 Bilateral Squats Resistance 75 Reps/Time 10x2 Therapeutic Exercises Supine Exercises IT band stretch Side bilateral Comments manual SKTC Reps/Minutes 2x Comments manual HS stretch Reps/Minutes 2x Comments manual, patient laying on shuttle leg press Sitting Exercises hip ab/ER Resistance L2 TB Reps/Minutes 10x2 ball squeeze Equipment Used ball Reps/Minutes 10x Standing Exercises hip flexor stretch Standing Exercise Name with gluteal isometric Reps/Minutes 3x Manual Therapy Treatment Soft Tissue Mobilization lumbar paraspinals, piriformis Mobilization Type Myofascial Release,Rolling, Strumming Intensity/Depth Moderate Body Position Sitting Taping 1 Body Location bilateral lumbar paraspinals Treatment Focus inhibition, pain reduction Type of Tape kinesiotape Skin Inspection intact Comments paper off tension PT-OP-R Modalities Start: 01/14/21 08:36 Freq: Status: Active Protocol: Document 07/15/21 15:08 [facility] (Rec: 07/15/21 16:12 [facility] [id number]) Electric Stimulation Electric Stimulation Interferential Current (IFC) Body Location bilateral lumbar paraspinals Duration (Minutes) 15 Target/Sweep Sweep High/Low High Patient Position Sitting Combined With Heat/Cold Hot Pack Ultrasound Therapy Treatment Back Treatment Duration (minutes) 8 Patient Position Sitting Coupling Medium Ultrasound Gel Frequency Setting (mHz) 1 Mode Setting Continuous Duty Cycle 100% Intensity Setting (w/cm2) 1.4 Comments bilateral lumbar paraspinals PT-OP-T Assessment and Plan Start: 01/14/21 08:36 Freq: Status: Active Protocol: Document 07/15/21 15:08 [facility] (Rec: 07/15/21 16:12 [facility] [id number]) Physical Therapy Assessment Goals range of motion Impairment stiffness throughout patient's trunk and hips Short Term Goal (STG) Instruct in HEP to address soft tissue mobility impairments STG Duration goal met Long-Term Goal (LTG) Patient to demonstrate improvements in overall flexibility throughout trunk and hips and be safe and independent with HEP and aquatic exercise program for long-term fitness and pain management. 04/17/21: has not yet started aquatic exercise program; reports he plans to next week. He has had good compliance to HEP. LTG Duration 07/18/21 Strength Impairment weakness core and hips Short Term Goal (STG) Patient to begin land and aquatic exercise to address impairments in core and hip muscle strength with good tolerance 03/24/21: goal progress, hasn't started aquatic exercise yet 04/17/21: to start aquatic exercise next week. 06/17/21: due to lung diagnosis patient has not started back at pool for aquatic exercises STG Duration 05/01/21 Grocery Clerk Checking Goal (LTG) Improve strength to at least 4 +/5 throughout trunk and LE's with patient demonstrating safety and independence with HEP and aquatic exercise program for long-term fitness and pain management. 03/21/21: some goal progress 04/17/21: good goal progress, strength improved to 4/5 except hip extension 4-/5 06/17/21: strength 4+/5 except hip extension still 4-/5 LTG Duration 07/18/21 Pain Impairment Pain level 7/10 diana lumbar spine and 6/10 diana cervical spine Short Term Goal (STG) Decrease pain to no greater than 5/10 09/07/19: goal progress, 6/10 03/21/21: pain level variable, still up to 8/10 at times, more often recently at 4-5/10 04/17/21: pain varies from 2-8/ 10 lumbar spine, 2 to 4/10 right th STG Duration not fully met Long-Term Goal (LTG) Decrease pain to no greater than 3/10 04/17/21: goal progress as above 06/17/21: pain right thigh decreased to 2/10 with self- taping with kinesiotape. Pain lumbar spine still varies from 2-8/10, decreased with PT . LTG Duration 07/18/21 Gait Impairment Requires use of walker, unable to walk community distances Short Term Goal (STG) Patient able to walk community distances with FWW with with minimal to no increase in pain. 03/21/21: patient ambulated from parking lot to waiting room, then into PT gym without using assistive device. Patient reports it is harder and he feels more pain, but wants to be able to do. Wants to go golfing again. 04/17/21: has played a couple rounds of golf without reporting increase in pain, as long as he stands only briefly to hit ball, then sits back in cart. 06/17: able to ambulate short distances using cane STG Duration goal progress, limited to 10 min Grocery Clerk Checking Goal (LTG) Patient able to ambulate with cane device for short community distances 03/21/21: only tolerates very short community distances (ie 100' or less), 04/17/21: using primarily cane, occasionally able to ambulate without device at this time, and demonstrating increase in speed 06/17/21: limited to 10 minutes of standing or walking, able to use cane. moderate forward flexion at trunk. LTG Duration 07/18/21 Activity tolerance Impairment Oswestry disability index score 48% Short Term Goal (STG) Decrease Oswestry score to no greater than 38% as measure of improved patient tolerance for usual daily activities 09/07/19: 52% 03/21/21: decreased to 44%, goal progress 04/17/21:decreased to 38% STG Duration goal progress Grocery Clerk Checking Goal (LTG) Decrease Oswestry score to no greater than 25% as measure of improved activity tolerance 06/17/21: decreased to 40% LTG Duration 07/18/21 Progress Towards Goals Progress Towards Goals Slow Progress due to Medical Issues Assessment Summary Assessment Patient more SOB due to lung disease, fatigued due to busy yesterday. Pain less after treatment. Asking for guidance with UE ex as I don' t have muscle anymore Physical Therapy Plan Frequency and Duration Frequency of Treatment 2x/Week Duration of Treatment 4 weeks Plan of Care Start Date 06/17/21 Plan of Care End Date 07/18/21 Therapeutic Interventions Therapeutic Interventions Aquatic Therapy,Gait Training, Home Exercise Program,Manual Therapy,Neuromuscular Re- education,Patient/Caregiver Education,Self-Care/Home Management,Soft Tissue Mobilization,Taping, Therapeutic Activities, Therapeutic Exercises Modalities Electric Stimulation,Hot Packs ,Infrared Therapy,Ultrasound Next Visit Focus/Plan Next Note Type Progress Note Next Visit Plan UE weight exercises per patient request; emphasise postural alignment and core stabilization. Continue core stabilization, flexibility ex, pain management per manual therapy and modalities.
--- NOTE | 2021-07-22 08:19 | PT-OP ANOTE ---
cancelled due to not feeling well after Covid booster.
--- NOTE | 2021-07-29 08:54 | PT.OPPOC ---
Physical, Occupational & Speech Therapy At [facility] Current Diagnoses Chronic pain syndrome (07/29/21) Radiculopathy, lumbar region (07/29/21) Cervicalgia (07/29/21) Iliotibial band syndrome, right leg (07/29/21) Arthrodesis status (07/29/21) Other specified postprocedural states (07/29/21) Visit Care Team Role Provider Type Shiva Tirado DO Attending Provider Physician Primary Care Provider Referring Provider Specialty: Family Practice Address: [address] [place] [address], [id number] Email: Plan Of Care PT-OP-T Assessment and Plan Start: 01/14/21 08:36 Freq: Status: Active Protocol: Document 07/29/21 13:53 [facility] (Rec: 07/29/21 14:34 [facility] [id number]) Physical Therapy Assessment Goals range of motion Impairment stiffness throughout patient's trunk and hips Short Term Goal (STG) Instruct in HEP to address soft tissue mobility impairments STG Duration goal met Finished Cloth Checker Goal (LTG) Patient to demonstrate improvements in overall flexibility throughout trunk and hips and be safe and independent with HEP and aquatic exercise program for long-term fitness and pain management. 04/17/21: has not yet started aquatic exercise program; reports he plans to next week. He has had good compliance to HEP. LTG Duration 07/18/21 Strength Impairment weakness core and hips Short Term Goal (STG) Patient to begin land and aquatic exercise to address impairments in core and hip muscle strength with good tolerance 03/24/21: goal progress, hasn't started aquatic exercise yet 04/17/21: to start aquatic exercise next week. 06/17/21: due to lung diagnosis patient has not started back at pool for aquatic exercises 07/29/21: patient to be seen for aquatic PT 08/14/21 and Finished Cloth Checker Goal (LTG) Improve strength to at least 4 +/5 throughout trunk and LE's with patient demonstrating safety and independence with HEP and aquatic exercise program for long-term fitness and pain management. 03/21/21: some goal progress 04/17/21: good goal progress, strength improved to 4/5 except hip extension 4-/5 06/17/21: strength 4+/5 except hip extension still 4-/5 07/29/21: hip extension 4-/5, has pain with most hip extension ex, should tolerate better in pool LTG Duration 08/19/21 Pain Impairment Pain level 7/10 diana lumbar spine and 6/10 diana cervical spine Short Term Goal (STG) Decrease pain to no greater than 5/10 09/07/19: goal progress, 6/10 03/21/21: pain level variable, still up to 8/10 at times, more often recently at 4-5/10 04/17/21: pain varies from 2-8/ 10 lumbar spine, 2 to 4/10 right thigh 07/29/21: varies from 2-8/10, less after PT treatments. STG Duration not fully met Finished Cloth Checker Goal (LTG) Decrease pain to no greater than 3/10 04/17/21: goal progress as above 06/17/21: pain right thigh decreased to 2/10 with self- taping with kinesiotape. Pain lumbar spine still varies from 2-8/10, decreased with PT . 07/29/21: patient continues to self-tape right thigh for pain management with good results, unable to tape spine. Spinal pain highly variable, best when sitting. Feel stress level contributory. LTG Duration 08/19/21 Gait Impairment Requires use of walker, unable to walk community distances Short Term Goal (STG) Patient able to walk community distances with FWW with with minimal to no increase in pain. 03/21/21: patient ambulated from parking lot to waiting room, then into PT gym without using assistive device. Patient reports it is harder and he feels more pain, but wants to be able to do. Wants to go golfing again. 04/17/21: has played a couple rounds of golf without reporting increase in pain, as long as he stands only briefly to hit ball, then sits back in cart. 06/17: able to ambulate short distances using cane STG Duration goal progress, limited to 10 min Care Home Goal (LTG) Patient able to ambulate with cane device for short community distances 03/21/21: only tolerates very short community distances (ie 100' or less), 04/17/21: using primarily cane, occasionally able to ambulate without device at this time, and demonstrating increase in speed 06/17/21: limited to 10 minutes of standing or walking, able to use cane. moderate forward flexion at trunk. 07/29/21: primarily using cane though with minimal ability to extend trunk to upright position due to pain; ambulates with approx 25-30 deg flexion. Tolerates very short community distances before needing to sit down. LTG Duration goal met Activity tolerance Impairment Oswestry disability index score 48% Short Term Goal (STG) Decrease Oswestry score to no greater than 38% as measure of improved patient tolerance for usual daily activities 09/07/19: 52% 03/21/21: decreased to 44%, goal progress 04/17/21:decreased to 38% STG Duration goal met Finished Cloth Checker Goal (LTG) Decrease Oswestry score to no greater than 25% as measure of improved activity tolerance 06/17/21: decreased to 40% 07/29/21: GREGORIA score 40% LTG Duration 07/18/21 Progress Towards Goals Progress Towards Goals Slow Progress due to Medical Issues Assessment Summary Assessment Patient continues to play some golf as it is his social and physical outlet. Denies increased pain, sits in cart as soon as hits ball due to continued poor standing tolerance. Tape continues to help IT band and patient is taping self. Unable to tape spine which is also helpful. Decreased pain after PT. Aquatic PT resuming at [facility] so patient is scheduled for 2 treatments prior to discharge from PT to assure safety and independence with aquatic exercise as that is his best tolerated form of exercise but due to Covid has been unable to do. Physical Therapy Plan Frequency and Duration Frequency of Treatment 1x/Week Duration of Treatment 4 weeks Plan of Care Start Date 07/29/21 Plan of Care End Date 08/29/21 Therapeutic Interventions Therapeutic Interventions Aquatic Therapy,Gait Training, Home Exercise Program,Manual Therapy,Neuromuscular Re- education,Patient/Caregiver Education,Self-Care/Home Management,Soft Tissue Mobilization,Taping, Therapeutic Activities, Therapeutic Exercises Modalities Electric Stimulation,Hot Packs ,Infrared Therapy,Ultrasound Next Visit Focus/Plan Next Visit Plan Continue core stabilization, flexibility ex, pain management per manual therapy and modalities. One further land-based treatment then transition to 2 aquatic PT sessions prior to discharge. Discuss TENS unit for home use . Plan of Care Dates Plan of Care Start Date 07/29/21 Plan of Care End Date 08/29/21 Electronically Signed by: Neelam Romano, PT 07/30/21 0854 Please Sign and Return: I have reviewed this Plan of Care and certify that the skilled therapy services above are required to meet the patient?s needs. Physician Signature Date Printed Name and Credentials Clinical Instructor Signature Printed Name and Credentials
--- NOTE | 2021-07-29 13:45 | PT.OTN ---
Current Diagnoses Chronic pain syndrome (07/29/21) Radiculopathy, lumbar region (07/29/21) Cervicalgia (07/29/21) Iliotibial band syndrome, right leg (07/29/21) Arthrodesis status (07/29/21) Other specified postprocedural states (07/29/21) Physical Therapy Treatment Note PT-OP-A Visit Information Start: 01/14/21 08:36 Freq: Status: Active Protocol: Document 07/29/21 13:53 [facility] (Rec: 07/29/21 14:34 [facility] [id number]) Out-Patient Physical Therapy Visit Information Visit Information Visit Type Treatment Note Visit Start Time 13:45 Visit Stop Time 14:44 Total Visit Minutes 59 Visit Number 27 Precautions Precautions history of fusion c/s and l/s with metal. PT-OP-B Current Condition Start: 01/14/21 08:36 Freq: Status: Active Protocol: Document 01/17/21 14:31 [facility] (Rec: 01/17/21 16:09 [facility] [id number]) Current Condition History of Current Condition Onset Date 1 year Current Complaints worsening LBP and neck pain and weakness arms and legs. History of Current Condition neck and back pain progressisvely worsening with decreased activity tolerance. Unable to golf any longer. Tried to drive to [place] 2018, couldn't make it due to pain. Last year coming back from [place] things deteriorated more. but was able to make it back. Numbness and tingling occasionally in hands. States legs give out occasionally and also spasm; states leg spasm in bed hurt his back a few nights ago. Uses walker to go any distance otherwise uses cane or furniture at home . Not currently doing any exercises, can walk about 75' at a time. Stopped doing aquatic exercise due to pool closure as result of Covid-19 and hasn't restarted. Admits to feeling some depressed/ disappointed. States Dr. Tirado recomended he look at going to assisted living and he plans to check out a few facilities in [place] close to his daughter. Prior Treatments and Tests No recent MRI or x-rays chest x-ray 6 months ago negative, states heart and lungs stable. Saw Dr. Littlejohn and 1 year ago; state nothing can be done Seeing Dr. Tirado: having osteopathic treatments; seems to help a little Treatment Goals Patient/Caregiver Goals Decrease pain, improve activity tolerance and function Prior Functional Status Baseline Function- ADL's Modified Independent Baseline Function- Mobility Modified Independent Baseline Function- Gait independent with device community distances Baseline Function- Work/School retired Baseline Function- Recreation/Hobbies restoring cars, golf Current Functional Impairments (Reported) Functional Limitations- ADL's increased time, more painful Functional Limitations- Mobility/Gait 75' with FWW max Functional Limitations- Recreation/ unable Hobbies PT-OP-C Subjective Start: 01/14/21 08:36 Freq: Status: Active Protocol: Document 07/29/21 13:53 [facility] (Rec: 07/29/21 14:34 [facility] [id number]) OP-PT Subjective Patient Comments Patient Comments Very tired today, not sleeping well due to multiple reasons including cancellation of holiday plans. Had Covid booster, feeling better now after initial soreness. PT-OP-G Mobility & Gait Start: 01/14/21 08:36 Freq: Status: Active Protocol: Document 01/17/21 14:31 [facility] (Rec: 01/17/21 16:09 [facility] [id number]) OP Gait Assessment Gait Gait Assistance Required: Independent Distance (Feet) 75 Gait Deviations General Gait Pattern Decreased Stride Length, Decreased Feet Clearance, Flexed Trunk Factors Limiting Gait Function Factors Limiting Gait Function Decreased Activity Tolerance, Decreased Strength,Pain PT-OP-J Posture/Palpation/Skin Start: 01/14/21 08:36 Freq: Status: Active Protocol: Document 01/17/21 14:31 [facility] (Rec: 01/17/21 16:09 [facility] [id number]) Posture Evaluation Position Standing Head/C-Spine Posture Forward Head T-Spine Posture Increased Kyphosis L-Spine Posture Decreased Lordosis Scapula Posture (L) Protracted,(R) Protracted Arm Posture (L) Internally Rotated,(R) Internally Rotated Pelvis Posture (L) Rotated Anterior,(R) Rotated Anterior Hip Posture (L) Flexed,(R) Flexed Knee Posture (L) Excess Flexion,(R) Excess Flexion Ankle/Foot Posture (L) Forefoot Eversion,(R) Forefoot Eversion Palpation Assessment Location bilateral cervical paraspinals, UT Palpation Findings Soft Tissue Tightness,Muscle Guarding,Tenderness diana lumbar paraspinals Palpation Findings Soft Tissue Tightness,Muscle Guarding,Tenderness Palpation Details tight diana, right greater than left PT-OP-K Range of Motion Start: 01/14/21 08:36 Freq: Status: Active Protocol: Document 01/17/21 14:31 [facility] (Rec: 01/17/21 16:09 [facility] [id number]) Cervical Spine Range of Motion Cervical Spine Active Degrees Testing Position Sitting Flexion 58 Extension 5 Rotation Left 27 Rotation Right 25 Lateral Flexion Left 14 Lateral Flexion Right 17 ROM Limitations Soft Tissue Tightness,Bony Restriction,Pain Lumbar Spine Range of Motion Lumbar Spine Active Degrees Flexion 20 Extension 0 Rotation Left 15 Rotation Right 15 Lateral Flexion Left 25 Lateral Flexion Right 25 Comments -10 deg ext with c/o increased pain Hip Goniometric Range of Motion Hip Left Flexion w/Knee Flexed 105 Straight Leg Raise 45 Internal Rotation 25 External Rotation 70 Right Flexion w/Knee Flexed 110 Straight Leg Raise 45 Internal Rotation 15 External Rotation 20 Hip ROM Limitations Comments -5 diana hip ext PT-OP-L Special Tests Start: 01/14/21 08:36 Freq: Status: Active Protocol: Document 01/17/21 14:31 [facility] (Rec: 01/17/21 16:09 [facility] [id number]) Special Tests Lumbar Spine Special Tests Manual Traction Test Results positive for increasing pain Horacio Test Results positive for hip flexor tightness diana Straight Leg Raise Test Results positive for muscle tightness not radicular pain Compression Test Results positive right Comments pain radiating to right posterior knee Hip Special Tests Piriformis Test Results positive right Scour Test Test Results negative diana PT-OP-M Strength Start: 01/14/21 08:36 Freq: Status: Active Protocol: Document 01/17/21 14:31 [facility] (Rec: 01/17/21 16:09 [facility] [id number]) Cervical Spine Strength Cervical Spine Manual Muscle Testing Flexion (C1-2) 4 Good Extension 4- Good- Rotation Left 4 Good Rotation Right 4 Good Lateral Flexion Left (C3) 4 Good Lateral Flexion Right (C3) 4 Good Trunk Strength Trunk Manual Muscle Testing Flexion 3+ Fair+ Extension 3+ Fair+ Rotation Left 4- Good- Rotation Right 4- Good- Lateral Flexion Left 4- Good- Lateral Flexion Right 4- Good- Shoulder Strength Shoulder Manual Muscle Testing diana Flexion 4 Good Extension 4- Good- External Rotation 4- Good- Internal Rotation 4- Good- Elbow/Forearm Strength Elbow and Forearm Manual Muscle Testing diana Flexion (C6) 4 Good Extension (C7) 4 Good PT-OP-Q Treatments Start: 01/14/21 08:36 Freq: Status: Active Protocol: Document 07/29/21 13:53 [facility] (Rec: 07/29/21 14:34 [facility] [id number]) Cardio Equipment Recumbent Stepper (Sci-Fit) Duration (Minutes) 10 Resistance 2.0 Seat Position 13 Gym Equipment Shuttle Recovery Unilateral Squats Details not available Bilateral Squats Details not available Therapeutic Exercises Supine Exercises SKTC Reps/Minutes 2x Comments manual HS stretch Reps/Minutes 2x Comments manual, patient laying on shuttle leg press Sitting Exercises hip ab/ER Resistance L2 TB Reps/Minutes 10x2 ball squeeze Equipment Used ball Reps/Minutes 10x row, sh ext Comments held due to fatigue Standing Exercises hip flexor stretch Standing Exercise Name with gluteal isometric Reps/Minutes 3x Manual Therapy Treatment Soft Tissue Mobilization lumbar paraspinals, piriformis Mobilization Type Myofascial Release,Rolling, Strumming Intensity/Depth Moderate Body Position Sitting Taping 1 Body Location bilateral lumbar paraspinals Treatment Focus inhibition, pain reduction Type of Tape kinesiotape Skin Inspection intact Comments paper off tension PT-OP-R Modalities Start: 01/14/21 08:36 Freq: Status: Active Protocol: Document 07/29/21 13:53 [facility] (Rec: 07/29/21 14:34 [facility] [id number]) Electric Stimulation Electric Stimulation Interferential Current (IFC) Body Location bilateral lumbar paraspinals Duration (Minutes) 15 Target/Sweep Sweep High/Low High Patient Position Sitting Combined With Heat/Cold Hot Pack Ultrasound Therapy Treatment Back Treatment Duration (minutes) 8 Patient Position Sitting Coupling Medium Ultrasound Gel Frequency Setting (mHz) 1 Mode Setting Continuous Duty Cycle 100% Intensity Setting (w/cm2) 1.4 Comments bilateral lumbar paraspinals PT-OP-T Assessment and Plan Start: 01/14/21 08:36 Freq: Status: Active Protocol: Document 07/29/21 13:53 [facility] (Rec: 07/29/21 14:34 [facility] [id number]) Physical Therapy Assessment Goals range of motion Impairment stiffness throughout patient's trunk and hips Short Term Goal (STG) Instruct in HEP to address soft tissue mobility impairments STG Duration goal met Ophthalmology Technician Goal (LTG) Patient to demonstrate improvements in overall flexibility throughout trunk and hips and be safe and independent with HEP and aquatic exercise program for long-term fitness and pain management. 04/17/21: has not yet started aquatic exercise program; reports he plans to next week. He has had good compliance to HEP. LTG Duration 07/18/21 Strength Impairment weakness core and hips Short Term Goal (STG) Patient to begin land and aquatic exercise to address impairments in core and hip muscle strength with good tolerance 03/24/21: goal progress, hasn't started aquatic exercise yet 04/17/21: to start aquatic exercise next week. 06/17/21: due to lung diagnosis patient has not started back at pool for aquatic exercises STG Duration 05/01/21 Mcfp Goal (LTG) Improve strength to at least 4 +/5 throughout trunk and LE's with patient demonstrating safety and independence with HEP and aquatic exercise program for long-term fitness and pain management. 03/21/21: some goal progress 04/17/21: good goal progress, strength improved to 4/5 except hip extension 4-/5 06/17/21: strength 4+/5 except hip extension still 4-/5 LTG Duration 07/18/21 Pain Impairment Pain level 7/10 diana lumbar spine and 6/10 diana cervical spine Short Term Goal (STG) Decrease pain to no greater than 5/10 09/07/19: goal progress, 6/10 03/21/21: pain level variable, still up to 8/10 at times, more often recently at 4-5/10 04/17/21: pain varies from 2-8/ 10 lumbar spine, 2 to 4/10 right th STG Duration not fully met Ophthalmology Technician Goal (LTG) Decrease pain to no greater than 3/10 04/17/21: goal progress as above 06/17/21: pain right thigh decreased to 2/10 with self- taping with kinesiotape. Pain lumbar spine still varies from 2-8/10, decreased with PT . LTG Duration 07/18/21 Gait Impairment Requires use of walker, unable to walk community distances Short Term Goal (STG) Patient able to walk community distances with FWW with with minimal to no increase in pain. 03/21/21: patient ambulated from parking lot to waiting room, then into PT gym without using assistive device. Patient reports it is harder and he feels more pain, but wants to be able to do. Wants to go golfing again. 04/17/21: has played a couple rounds of golf without reporting increase in pain, as long as he stands only briefly to hit ball, then sits back in cart. 06/17: able to ambulate short distances using cane STG Duration goal progress, limited to 10 min Mcfp Goal (LTG) Patient able to ambulate with cane device for short community distances 03/21/21: only tolerates very short community distances (ie 100' or less), 04/17/21: using primarily cane, occasionally able to ambulate without device at this time, and demonstrating increase in speed 06/17/21: limited to 10 minutes of standing or walking, able to use cane. moderate forward flexion at trunk. LTG Duration 07/18/21 Activity tolerance Impairment Oswestry disability index score 48% Short Term Goal (STG) Decrease Oswestry score to no greater than 38% as measure of improved patient tolerance for usual daily activities 09/07/19: 52% 03/21/21: decreased to 44%, goal progress 04/17/21:decreased to 38% STG Duration goal progress Mcfp Goal (LTG) Decrease Oswestry score to no greater than 25% as measure of improved activity tolerance 06/17/21: decreased to 40% LTG Duration 07/18/21 Progress Towards Goals Progress Towards Goals Slow Progress due to Medical Issues Assessment Summary Assessment Patient continues to play some golf as it is his social and physical outlet. Denies increased pain, sits in cart as soon as hits ball due to continued poor standing tolerance. Tape continues to help IT band and patient is taping self. Unable to tape spine which is also helpful. Decreased pain after PT. Physical Therapy Plan Frequency and Duration Frequency of Treatment 2x/Week Duration of Treatment 4 weeks Plan of Care Start Date 06/17/21 Plan of Care End Date 07/18/21 Therapeutic Interventions Therapeutic Interventions Aquatic Therapy,Gait Training, Home Exercise Program,Manual Therapy,Neuromuscular Re- education,Patient/Caregiver Education,Self-Care/Home Management,Soft Tissue Mobilization,Taping, Therapeutic Activities, Therapeutic Exercises Modalities Electric Stimulation,Hot Packs ,Infrared Therapy,Ultrasound Next Visit Focus/Plan Next Visit Plan UE weight exercises per patient request; emphasise postural alignment and core stabilization. Continue core stabilization, flexibility ex, pain management per manual therapy and modalities. Discuss TENS unit for home use.
--- NOTE | 2021-07-30 08:54 | PT.OTRE ---
Addendum entered and electronically signed by Neelam Romano, PT 07/30/21 08:54: Late entry for 07/29/21 Original Note: Current Diagnoses Chronic pain syndrome (07/29/21) Radiculopathy, lumbar region (07/29/21) Cervicalgia (07/29/21) Iliotibial band syndrome, right leg (07/29/21) Arthrodesis status (07/29/21) Other specified postprocedural states (07/29/21) Past Medical History (Last Updated 06/19/21 @ 14:03 by Shiva Tirado DO) Atrial fibrillation (~1993) Bilateral lower extremity edema Bladder cancer BPH (benign prostatic hyperplasia) Cervical somatic dysfunction Cervical spine disease Chronic neck pain Coordination of complex care Coronary artery disease Counseling regarding advanced care planning and goals of care Counseling regarding end of life decision making Excessive cerumen in both ear canals GERD (gastroesophageal reflux disease) History of abdominal aortic aneurysm repair (~2006) Hx of cervical discectomy Hx of coronary artery bypass graft (~1980) Hx of laminectomy (~04/2016) Hx of transurethral resection of prostate Hypertension Hypotension Idiopathic pulmonary fibrosis Iliotibial band syndrome, right leg Increased frequency of urination Increasing shortness of breath Macrocytosis Malaise and fatigue Menieres disease Muscular deconditioning Myocardial infarction (1978) Nausea Nausea alone Night sweats Pelvic somatic dysfunction Restrictive lung disease Rib pain on left side S/P carotid endarterectomy (~1990) Segmental and somatic dysfunction of abdomen and other regions Segmental and somatic dysfunction of lower extremity Segmental and somatic dysfunction of lumbar region Segmental and somatic dysfunction of rib cage Segmental and somatic dysfunction of sacral region Segmental and somatic dysfunction of thoracic region Shortness of breath Somatic dysfunction of lower extremity Thoracic aortic aneurysm Tremor Surgical History (Last Reviewed 06/02/21 @ 19:00 by Magy Avina PA-C) History of abdominal aortic aneurysm repair (~2006) Hx of cervical discectomy Hx of coronary artery bypass graft (~1980) Hx of laminectomy (~04/2016) Hx of transurethral resection of prostate S/P carotid endarterectomy (~1990) Visit Care Team Role Provider Type Shiva Tirado DO Attending Provider Physician Primary Care Provider Referring Provider Specialty: [facility] Address: [address] [place] [address], [facility] Email: Physical Therapy Re-Evaluation PT-OP-A Visit Information Start: 01/14/21 08:36 Freq: Status: Active Protocol: Document 07/29/21 13:53 [facility] (Rec: 07/29/21 14:34 [facility] [id number]) Out-Patient Physical Therapy Visit Information Visit Information Visit Type Treatment Note Visit Start Time 13:45 Visit Stop Time 14:44 Total Visit Minutes 59 Visit Number 27 Precautions Precautions history of fusion c/s and l/s with metal. PT-OP-B Current Condition Start: 01/14/21 08:36 Freq: Status: Active Protocol: Document 01/17/21 14:31 [facility] (Rec: 01/17/21 16:09 [facility] [id number]) Current Condition History of Current Condition Onset Date 1 year Current Complaints worsening LBP and neck pain and weakness arms and legs. History of Current Condition neck and back pain progressisvely worsening with decreased activity tolerance. Unable to golf any longer. Tried to drive to [place] 2018, couldn't make it due to pain. Last year coming back from [place] things deteriorated more. but was able to make it back. Numbness and tingling occasionally in hands. States legs give out occasionally and also spasm; states leg spasm in bed hurt his back a few nights ago. Uses walker to go any distance otherwise uses cane or furniture at home . Not currently doing any exercises, can walk about 75' at a time. Stopped doing aquatic exercise due to pool closure as result of Covid-19 and hasn't restarted. Admits to feeling some depressed/ disappointed. States Dr. Tirado recomended he look at going to assisted living and he plans to check out a few facilities in [place] close to his daughter. Prior Treatments and Tests No recent MRI or x-rays chest x-ray 6 months ago negative, states heart and lungs stable. Saw Dr. Littlejohn and 1 year ago; state nothing can be done Seeing Dr. Tirado: having osteopathic treatments; seems to help a little Treatment Goals Patient/Caregiver Goals Decrease pain, improve activity tolerance and function Prior Functional Status Baseline Function- ADL's Modified Independent Baseline Function- Mobility Modified Independent Baseline Function- Gait independent with device community distances Baseline Function- Work/School retired Baseline Function- Recreation/Hobbies restoring cars, golf Current Functional Impairments (Reported) Functional Limitations- ADL's increased time, more painful Functional Limitations- Mobility/Gait 75' with FWW max Functional Limitations- Recreation/ unable Hobbies PT-OP-C Subjective Start: 01/14/21 08:36 Freq: Status: Active Protocol: Document 07/29/21 13:53 [facility] (Rec: 07/29/21 14:34 [facility] [id number]) OP-PT Subjective Patient Comments Patient Comments Very tired today, not sleeping well due to multiple reasons including cancellation of holiday plans. Had Covid booster, feeling better now after initial soreness. PT-OP-G Mobility & Gait Start: 01/14/21 08:36 Freq: Status: Active Protocol: Document 01/17/21 14:31 [facility] (Rec: 01/17/21 16:09 [facility] [id number]) OP Gait Assessment Gait Gait Assistance Required: Independent Distance (Feet) 75 Gait Deviations General Gait Pattern Decreased Stride Length, Decreased Feet Clearance, Flexed Trunk Factors Limiting Gait Function Factors Limiting Gait Function Decreased Activity Tolerance, Decreased Strength,Pain PT-OP-J Posture/Palpation/Skin Start: 01/14/21 08:36 Freq: Status: Active Protocol: Document 01/17/21 14:31 [facility] (Rec: 01/17/21 16:09 [facility] [id number]) Posture Evaluation Position Standing Head/C-Spine Posture Forward Head T-Spine Posture Increased Kyphosis L-Spine Posture Decreased Lordosis Scapula Posture (L) Protracted,(R) Protracted Arm Posture (L) Internally Rotated,(R) Internally Rotated Pelvis Posture (L) Rotated Anterior,(R) Rotated Anterior Hip Posture (L) Flexed,(R) Flexed Knee Posture (L) Excess Flexion,(R) Excess Flexion Ankle/Foot Posture (L) Forefoot Eversion,(R) Forefoot Eversion Palpation Assessment Location bilateral cervical paraspinals, UT Palpation Findings Soft Tissue Tightness,Muscle Guarding,Tenderness diana lumbar paraspinals Palpation Findings Soft Tissue Tightness,Muscle Guarding,Tenderness Palpation Details tight diana, right greater than left PT-OP-K Range of Motion Start: 01/14/21 08:36 Freq: Status: Active Protocol: Document 01/17/21 14:31 [facility] (Rec: 01/17/21 16:09 [facility] [id number]) Cervical Spine Range of Motion Cervical Spine Active Degrees Testing Position Sitting Flexion 58 Extension 5 Rotation Left 27 Rotation Right 25 Lateral Flexion Left 14 Lateral Flexion Right 17 ROM Limitations Soft Tissue Tightness,Bony Restriction,Pain Lumbar Spine Range of Motion Lumbar Spine Active Degrees Flexion 20 Extension 0 Rotation Left 15 Rotation Right 15 Lateral Flexion Left 25 Lateral Flexion Right 25 Comments -10 deg ext with c/o increased pain Hip Goniometric Range of Motion Hip Measured in Degrees Left Flexion w/Knee Flexed 105 Straight Leg Raise 45 Internal Rotation 25 External Rotation 70 Right Flexion w/Knee Flexed 110 Straight Leg Raise 45 Internal Rotation 15 External Rotation 20 Hip ROM Limitations Comments -5 diana hip ext PT-OP-L Special Tests Start: 01/14/21 08:36 Freq: Status: Active Protocol: Document 01/17/21 14:31 [facility] (Rec: 01/17/21 16:09 [facility] [id number]) Special Tests Lumbar Spine Special Tests Manual Traction Test Results positive for increasing pain Horacio Test Results positive for hip flexor tightness diana Straight Leg Raise Test Results positive for muscle tightness not radicular pain Compression Test Results positive right Comments pain radiating to right posterior knee Hip Special Tests Piriformis Test Results positive right Scour Test Test Results negative diana PT-OP-M Strength Start: 01/14/21 08:36 Freq: Status: Active Protocol: Document 01/17/21 14:31 [facility] (Rec: 01/17/21 16:09 [facility] [id number]) Cervical Spine Strength Cervical Spine Manual Muscle Testing Flexion (C1-2) 4 Good Extension 4- Good- Rotation Left 4 Good Rotation Right 4 Good Lateral Flexion Left (C3) 4 Good Lateral Flexion Right (C3) 4 Good Trunk Strength Trunk Manual Muscle Testing Flexion 3+ Fair+ Extension 3+ Fair+ Rotation Left 4- Good- Rotation Right 4- Good- Lateral Flexion Left 4- Good- Lateral Flexion Right 4- Good- Shoulder Strength Shoulder Manual Muscle Testing diana Flexion 4 Good Extension 4- Good- External Rotation 4- Good- Internal Rotation 4- Good- Elbow/Forearm Strength Elbow and Forearm Manual Muscle Testing diana Flexion (C6) 4 Good Extension (C7) 4 Good PT-OP-Q Treatments Start: 01/14/21 08:36 Freq: Status: Active Protocol: Document 07/29/21 13:53 [facility] (Rec: 07/29/21 14:34 [facility] [id number]) Cardio Equipment Recumbent Stepper (Sci-Fit) Duration (Minutes) 10 Resistance 2.0 Seat Position 13 Gym Equipment Shuttle Recovery Unilateral Squats Details not available Bilateral Squats Details not available Therapeutic Exercises Supine Exercises SKTC Reps/Minutes 2x Comments manual HS stretch Reps/Minutes 2x Comments manual, patient laying on shuttle leg press Sitting Exercises hip ab/ER Resistance L2 TB Reps/Minutes 10x2 ball squeeze Equipment Used ball Reps/Minutes 10x row, sh ext Comments held due to fatigue Standing Exercises hip flexor stretch Standing Exercise Name with gluteal isometric Reps/Minutes 3x Manual Therapy Treatment Soft Tissue Mobilization lumbar paraspinals, piriformis Mobilization Type Myofascial Release,Rolling, Strumming Intensity/Depth Moderate Body Position Sitting Taping 1 Body Location bilateral lumbar paraspinals Treatment Focus inhibition, pain reduction Type of Tape kinesiotape Skin Inspection intact Comments paper off tension PT-OP-R Modalities Start: 01/14/21 08:36 Freq: Status: Active Protocol: Document 07/29/21 13:53 [facility] (Rec: 07/29/21 14:34 [facility] [id number]) Electric Stimulation Electric Stimulation Interferential Current (IFC) Body Location bilateral lumbar paraspinals Duration (Minutes) 15 Target/Sweep Sweep High/Low High Patient Position Sitting Combined With Heat/Cold Hot Pack Ultrasound Therapy Treatment Back Treatment Duration (minutes) 8 Patient Position Sitting Coupling Medium Ultrasound Gel Frequency Setting (mHz) 1 Mode Setting Continuous Duty Cycle 100% Intensity Setting (w/cm2) 1.4 Comments bilateral lumbar paraspinals PT-OP-T Assessment and Plan Start: 01/14/21 08:36 Freq: Status: Active Protocol: Document 07/29/21 13:53 [facility] (Rec: 07/29/21 14:34 [facility] [id number]) Physical Therapy Assessment Goals range of motion Impairment stiffness throughout patient's trunk and hips Short Term Goal (STG) Instruct in HEP to address soft tissue mobility impairments STG Duration goal met [employer] Goal (LTG) Patient to demonstrate improvements in overall flexibility throughout trunk and hips and be safe and independent with HEP and aquatic exercise program for long-term fitness and pain management. 04/17/21: has not yet started aquatic exercise program; reports he plans to next week. He has had good compliance to HEP. LTG Duration 07/18/21 Strength Impairment weakness core and hips Short Term Goal (STG) Patient to begin land and aquatic exercise to address impairments in core and hip muscle strength with good tolerance 03/24/21: goal progress, hasn't started aquatic exercise yet 04/17/21: to start aquatic exercise next week. 06/17/21: due to lung diagnosis patient has not started back at pool for aquatic exercises 07/29/21: patient to be seen for aquatic PT 08/14/21 and [employer] Goal (LTG) Improve strength to at least 4 +/5 throughout trunk and LE's with patient demonstrating safety and independence with HEP and aquatic exercise program for long-term fitness and pain management. 03/21/21: some goal progress 04/17/21: good goal progress, strength improved to 4/5 except hip extension 4-/5 06/17/21: strength 4+/5 except hip extension still 4-/5 07/29/21: hip extension 4-/5, has pain with most hip extension ex, should tolerate better in pool LTG Duration 08/19/21 Pain Impairment Pain level 7/10 diana lumbar spine and 6/10 diana cervical spine Short Term Goal (STG) Decrease pain to no greater than 5/10 09/07/19: goal progress, 6/10 03/21/21: pain level variable, still up to 8/10 at times, more often recently at 4-5/10 04/17/21: pain varies from 2-8/ 10 lumbar spine, 2 to 4/10 right thigh 07/29/21: varies from 2-8/10, less after PT treatments. STG Duration not fully met [facility] Goal (LTG) Decrease pain to no greater than 3/10 04/17/21: goal progress as above 06/17/21: pain right thigh decreased to 2/10 with self- taping with kinesiotape. Pain lumbar spine still varies from 2-8/10, decreased with PT . 07/29/21: patient continues to self-tape right thigh for pain management with good results, unable to tape spine. Spinal pain highly variable, best when sitting. Feel stress level contributory. LTG Duration 08/19/21 Gait Impairment Requires use of walker, unable to walk community distances Short Term Goal (STG) Patient able to walk community distances with FWW with with minimal to no increase in pain. 03/21/21: patient ambulated from parking lot to waiting room, then into PT gym without using assistive device. Patient reports it is harder and he feels more pain, but wants to be able to do. Wants to go golfing again. 04/17/21: has played a couple rounds of golf without reporting increase in pain, as long as he stands only briefly to hit ball, then sits back in cart. 06/17: able to ambulate short distances using cane STG Duration goal progress, limited to 10 min [employer] Goal (LTG) Patient able to ambulate with cane device for short community distances 03/21/21: only tolerates very short community distances (ie 100' or less), 04/17/21: using primarily cane, occasionally able to ambulate without device at this time, and demonstrating increase in speed 06/17/21: limited to 10 minutes of standing or walking, able to use cane. moderate forward flexion at trunk. 07/29/21: primarily using cane though with minimal ability to extend trunk to upright position due to pain; ambulates with approx 25-30 deg flexion. Tolerates very short community distances before needing to sit down. LTG Duration goal met Activity tolerance Impairment Oswestry disability index score 48% Short Term Goal (STG) Decrease Oswestry score to no greater than 38% as measure of improved patient tolerance for usual daily activities 09/07/19: 52% 03/21/21: decreased to 44%, goal progress 04/17/21:decreased to 38% STG Duration goal met [employer] Goal (LTG) Decrease Oswestry score to no greater than 25% as measure of improved activity tolerance 06/17/21: decreased to 40% 07/29/21: GREGORIA score 40% LTG Duration 07/18/21 Progress Towards Goals Progress Towards Goals Slow Progress due to Medical Issues Assessment Summary Assessment Patient continues to play some golf as it is his social and physical outlet. Denies increased pain, sits in cart as soon as hits ball due to continued poor standing tolerance. Tape continues to help IT band and patient is taping self. Unable to tape spine which is also helpful. Decreased pain after PT. Aquatic PT resuming at [facility] so patient is scheduled for 2 treatments prior to discharge from PT to assure safety and independence with aquatic exercise as that is his best tolerated form of exercise but due to Covid has been unable to do. Physical Therapy Plan Frequency and Duration Frequency of Treatment 1x/Week Duration of Treatment 4 weeks Plan of Care Start Date 07/29/21 Plan of Care End Date 08/29/21 Therapeutic Interventions Therapeutic Interventions Aquatic Therapy,Gait Training, Home Exercise Program,Manual Therapy,Neuromuscular Re- education,Patient/Caregiver Education,Self-Care/Home Management,Soft Tissue Mobilization,Taping, Therapeutic Activities, Therapeutic Exercises Modalities Electric Stimulation,Hot Packs ,Infrared Therapy,Ultrasound Next Visit Focus/Plan Next Visit Plan Continue core stabilization, flexibility ex, pain management per manual therapy and modalities. One further land-based treatment then transition to 2 aquatic PT sessions prior to discharge. Discuss TENS unit for home use .
--- NOTE | 2021-08-05 16:46 | PT.OTN ---
Current Diagnoses Chronic pain syndrome (08/05/21) Radiculopathy, lumbar region (08/05/21) Cervicalgia (08/05/21) Iliotibial band syndrome, right leg (08/05/21) Arthrodesis status (08/05/21) Other specified postprocedural states (08/05/21) Physical Therapy Treatment Note PT-OP-A Visit Information Start: 01/14/21 08:36 Freq: Status: Active Protocol: Document 08/05/21 13:49 [facility] (Rec: 08/05/21 14:10 [facility] [id number]) Out-Patient Physical Therapy Visit Information Visit Information Visit Type Treatment Note Visit Start Time 13:45 Visit Stop Time 14:45 Total Visit Minutes 60 Visit Number 28 Precautions Precautions history of fusion c/s and l/s with metal. PT-OP-B Current Condition Start: 01/14/21 08:36 Freq: Status: Active Protocol: Document 01/17/21 14:31 [facility] (Rec: 01/17/21 16:09 [facility] [id number]) Current Condition History of Current Condition Onset Date 1 year Current Complaints worsening LBP and neck pain and weakness arms and legs. History of Current Condition neck and back pain progressisvely worsening with decreased activity tolerance. Unable to golf any longer. Tried to drive to [place] 2018, couldn't make it due to pain. Last year coming back from [place] things deteriorated more. but was able to make it back. Numbness and tingling occasionally in hands. States legs give out occasionally and also spasm; states leg spasm in bed hurt his back a few nights ago. Uses walker to go any distance otherwise uses cane or furniture at home . Not currently doing any exercises, can walk about 75' at a time. Stopped doing aquatic exercise due to pool closure as result of Covid-19 and hasn't restarted. Admits to feeling some depressed/ disappointed. States Dr. Tirado recomended he look at going to assisted living and he plans to check out a few facilities in [place] close to his daughter. Prior Treatments and Tests No recent MRI or x-rays chest x-ray 6 months ago negative, states heart and lungs stable. Saw Dr. Littlejohn and 1 year ago; state nothing can be done Seeing Dr. Tirado: having osteopathic treatments; seems to help a little Treatment Goals Patient/Caregiver Goals Decrease pain, improve activity tolerance and function Prior Functional Status Baseline Function- ADL's Modified Independent Baseline Function- Mobility Modified Independent Baseline Function- Gait independent with device community distances Baseline Function- Work/School retired Baseline Function- Recreation/Hobbies restoring cars, golf Current Functional Impairments (Reported) Functional Limitations- ADL's increased time, more painful Functional Limitations- Mobility/Gait 75' with FWW max Functional Limitations- Recreation/ unable Hobbies PT-OP-C Subjective Start: 01/14/21 08:36 Freq: Status: Active Protocol: Document 08/05/21 13:49 [facility] (Rec: 08/05/21 14:10 [facility] [id number]) OP-PT Subjective Patient Comments Patient Comments Breathing a little better, leg pain is some decreased. decreased PT-OP-G Mobility & Gait Start: 01/14/21 08:36 Freq: Status: Active Protocol: Document 01/17/21 14:31 [facility] (Rec: 01/17/21 16:09 [facility] [id number]) OP Gait Assessment Gait Gait Assistance Required: Independent Distance (Feet) 75 Gait Deviations General Gait Pattern Decreased Stride Length, Decreased Feet Clearance, Flexed Trunk Factors Limiting Gait Function Factors Limiting Gait Function Decreased Activity Tolerance, Decreased Strength,Pain PT-OP-J Posture/Palpation/Skin Start: 01/14/21 08:36 Freq: Status: Active Protocol: Document 01/17/21 14:31 [facility] (Rec: 01/17/21 16:09 [facility] [id number]) Posture Evaluation Position Standing Head/C-Spine Posture Forward Head T-Spine Posture Increased Kyphosis L-Spine Posture Decreased Lordosis Scapula Posture (L) Protracted,(R) Protracted Arm Posture (L) Internally Rotated,(R) Internally Rotated Pelvis Posture (L) Rotated Anterior,(R) Rotated Anterior Hip Posture (L) Flexed,(R) Flexed Knee Posture (L) Excess Flexion,(R) Excess Flexion Ankle/Foot Posture (L) Forefoot Eversion,(R) Forefoot Eversion Palpation Assessment Location bilateral cervical paraspinals, UT Palpation Findings Soft Tissue Tightness,Muscle Guarding,Tenderness diana lumbar paraspinals Palpation Findings Soft Tissue Tightness,Muscle Guarding,Tenderness Palpation Details tight diana, right greater than left PT-OP-K Range of Motion Start: 01/14/21 08:36 Freq: Status: Active Protocol: Document 01/17/21 14:31 [facility] (Rec: 01/17/21 16:09 [facility] [id number]) Cervical Spine Range of Motion Cervical Spine Active Degrees Testing Position Sitting Flexion 58 Extension 5 Rotation Left 27 Rotation Right 25 Lateral Flexion Left 14 Lateral Flexion Right 17 ROM Limitations Soft Tissue Tightness,Bony Restriction,Pain Lumbar Spine Range of Motion Lumbar Spine Active Degrees Flexion 20 Extension 0 Rotation Left 15 Rotation Right 15 Lateral Flexion Left 25 Lateral Flexion Right 25 Comments -10 deg ext with c/o increased pain Hip Goniometric Range of Motion Hip Left Flexion w/Knee Flexed 105 Straight Leg Raise 45 Internal Rotation 25 External Rotation 70 Right Flexion w/Knee Flexed 110 Straight Leg Raise 45 Internal Rotation 15 External Rotation 20 Hip ROM Limitations Comments -5 diana hip ext PT-OP-L Special Tests Start: 01/14/21 08:36 Freq: Status: Active Protocol: Document 01/17/21 14:31 [facility] (Rec: 01/17/21 16:09 [facility] [id number]) Special Tests Lumbar Spine Special Tests Manual Traction Test Results positive for increasing pain Horacio Test Results positive for hip flexor tightness diana Straight Leg Raise Test Results positive for muscle tightness not radicular pain Compression Test Results positive right Comments pain radiating to right posterior knee Hip Special Tests Piriformis Test Results positive right Scour Test Test Results negative diana PT-OP-M Strength Start: 01/14/21 08:36 Freq: Status: Active Protocol: Document 01/17/21 14:31 [facility] (Rec: 01/17/21 16:09 [facility] [id number]) Cervical Spine Strength Cervical Spine Manual Muscle Testing Flexion (C1-2) 4 Good Extension 4- Good- Rotation Left 4 Good Rotation Right 4 Good Lateral Flexion Left (C3) 4 Good Lateral Flexion Right (C3) 4 Good Trunk Strength Trunk Manual Muscle Testing Flexion 3+ Fair+ Extension 3+ Fair+ Rotation Left 4- Good- Rotation Right 4- Good- Lateral Flexion Left 4- Good- Lateral Flexion Right 4- Good- Shoulder Strength Shoulder Manual Muscle Testing diana Flexion 4 Good Extension 4- Good- External Rotation 4- Good- Internal Rotation 4- Good- Elbow/Forearm Strength Elbow and Forearm Manual Muscle Testing diana Flexion (C6) 4 Good Extension (C7) 4 Good PT-OP-Q Treatments Start: 01/14/21 08:36 Freq: Status: Active Protocol: Document 10/18/21 13:49 [facility] (Rec: 08/05/21 14:10 [facility] [id number]) Cardio Equipment Recumbent Stepper (Sci-Fit) Duration (Minutes) 10 Resistance 2.0 Seat Position 13 Gym Equipment Shuttle Recovery Unilateral Squats Resistance 37 Reps/Time 10x2 Bilateral Squats Resistance 75 Reps/Time 10x2 Therapeutic Exercises Supine Exercises SKTC Reps/Minutes 2x Comments manual HS stretch Reps/Minutes 2x Comments manual, patient laying on shuttle leg press Sitting Exercises hip ab/ER Resistance L2 TB Reps/Minutes 10x2 ball squeeze Equipment Used ball Reps/Minutes 10x Standing Exercises hip flexor stretch Standing Exercise Name with gluteal isometric Reps/Minutes 2x Manual Therapy Treatment Soft Tissue Mobilization lumbar paraspinals, piriformis Mobilization Type Myofascial Release,Rolling, Strumming Intensity/Depth Moderate Body Position Sitting Taping 1 Body Location bilateral lumbar paraspinals Treatment Focus inhibition, pain reduction Type of Tape kinesiotape Skin Inspection intact Comments paper off tension PT-OP-R Modalities Start: 01/14/21 08:36 Freq: Status: Active Protocol: Document 08/05/21 13:49 [facility] (Rec: 08/05/21 14:10 [facility] [id number]) Electric Stimulation Electric Stimulation Interferential Current (IFC) Body Location bilateral lumbar paraspinals Duration (Minutes) 15 Target/Sweep Sweep High/Low High Patient Position Sitting Combined With Heat/Cold Hot Pack Ultrasound Therapy Treatment Back Treatment Duration (minutes) 8 Patient Position Sitting Coupling Medium Ultrasound Gel Frequency Setting (mHz) 1 Mode Setting Continuous Duty Cycle 100% Intensity Setting (w/cm2) 1.4 Comments bilateral lumbar paraspinals PT-OP-T Assessment and Plan Start: 01/14/21 08:36 Freq: Status: Active Protocol: Document 08/05/21 13:49 [facility] (Rec: 08/05/21 14:10 [facility] [id number]) Physical Therapy Assessment Goals range of motion Impairment stiffness throughout patient's trunk and hips Short Term Goal (STG) Instruct in HEP to address soft tissue mobility impairments STG Duration goal met Usp Goal (LTG) Patient to demonstrate improvements in overall flexibility throughout trunk and hips and be safe and independent with HEP and aquatic exercise program for long-term fitness and pain management. 04/17/21: has not yet started aquatic exercise program; reports he plans to next week. He has had good compliance to HEP. LTG Duration 07/18/21 Strength Impairment weakness core and hips Short Term Goal (STG) Patient to begin land and aquatic exercise to address impairments in core and hip muscle strength with good tolerance 03/24/21: goal progress, hasn't started aquatic exercise yet 04/17/21: to start aquatic exercise next week. 06/17/21: due to lung diagnosis patient has not started back at pool for aquatic exercises 07/29/21: patient to be seen for aquatic PT 08/14/21 and [employer] Goal (LTG) Improve strength to at least 4 +/5 throughout trunk and LE's with patient demonstrating safety and independence with HEP and aquatic exercise program for long-term fitness and pain management. 03/21/21: some goal progress 04/17/21: good goal progress, strength improved to 4/5 except hip extension 4-/5 06/17/21: strength 4+/5 except hip extension still 4-/5 07/29/21: hip extension 4-/5, has pain with most hip extension ex, should tolerate better in pool LTG Duration 08/19/21 Pain Impairment Pain level 7/10 diana lumbar spine and 6/10 diana cervical spine Short Term Goal (STG) Decrease pain to no greater than 5/10 09/07/19: goal progress, 6/10 03/21/21: pain level variable, still up to 8/10 at times, more often recently at 4-5/10 04/17/21: pain varies from 2-8/ 10 lumbar spine, 2 to 4/10 right thigh 07/29/21: varies from 2-8/10, less after PT treatments. STG Duration not fully met [employer] Developer Goal (LTG) Decrease pain to no greater than 3/10 04/17/21: goal progress as above 06/17/21: pain right thigh decreased to 2/10 with self- taping with kinesiotape. Pain lumbar spine still varies from 2-8/10, decreased with PT . 07/29/21: patient continues to self-tape right thigh for pain management with good results, unable to tape spine. Spinal pain highly variable, best when sitting. Feel stress level contributory. LTG Duration 08/19/21 Gait Impairment Requires use of walker, unable to walk community distances Short Term Goal (STG) Patient able to walk community distances with FWW with with minimal to no increase in pain. 03/21/21: patient ambulated from parking lot to waiting room, then into PT gym without using assistive device. Patient reports it is harder and he feels more pain, but wants to be able to do. Wants to go golfing again. 04/17/21: has played a couple rounds of golf without reporting increase in pain, as long as he stands only briefly to hit ball, then sits back in cart. 06/17: able to ambulate short distances using cane STG Duration goal progress, limited to 10 min Usp Goal (LTG) Patient able to ambulate with cane device for short community distances 03/21/21: only tolerates very short community distances (ie 100' or less), 04/17/21: using primarily cane, occasionally able to ambulate without device at this time, and demonstrating increase in speed 06/17/21: limited to 10 minutes of standing or walking, able to use cane. moderate forward flexion at trunk. 07/29/21: primarily using cane though with minimal ability to extend trunk to upright position due to pain; ambulates with approx 25-30 deg flexion. Tolerates very short community distances before needing to sit down. LTG Duration goal met Activity tolerance Impairment Oswestry disability index score 48% Short Term Goal (STG) Decrease Oswestry score to no greater than 38% as measure of improved patient tolerance for usual daily activities 09/07/19: 52% 03/21/21: decreased to 44%, goal progress 04/17/21:decreased to 38% STG Duration goal met [employer] Developer Goal (LTG) Decrease Oswestry score to no greater than 25% as measure of improved activity tolerance 06/17/21: decreased to 40% 07/29/21: GREGORIA score 40% LTG Duration 07/18/21 Progress Towards Goals Progress Towards Goals Slow Progress due to Medical Issues Assessment Summary Assessment Good pain management in thigh, variable in low back. Standing tolerance remains very limited. Next visit aquatic PT Physical Therapy Plan Frequency and Duration Frequency of Treatment 1x/Week Duration of Treatment 4 weeks Plan of Care Start Date 07/29/21 Plan of Care End Date 08/29/21 Therapeutic Interventions Therapeutic Interventions Aquatic Therapy,Gait Training, Home Exercise Program,Manual Therapy,Neuromuscular Re- education,Patient/Caregiver Education,Self-Care/Home Management,Soft Tissue Mobilization,Taping, Therapeutic Activities, Therapeutic Exercises Modalities Electric Stimulation,Hot Packs ,Infrared Therapy,Ultrasound Next Visit Focus/Plan Next Note Type Treatment Note Next Visit Plan aquatic PT
--- NOTE | 2021-08-14 14:24 | PT.OTN ---
Current Diagnoses Chronic pain syndrome (08/05/21) Radiculopathy, lumbar region (08/05/21) Cervicalgia (08/05/21) Iliotibial band syndrome, right leg (08/05/21) Arthrodesis status (08/05/21) Other specified postprocedural states (08/05/21) Physical Therapy Treatment Note PT-OP-A Visit Information Start: 01/14/21 08:36 Freq: Status: Active Protocol: Document 08/14/21 14:00 (Rec: 08/14/21 14:20 [id number]) Out-Patient Physical Therapy Visit Information Visit Information Visit Type Aquatic Treatment Note Visit Start Time 11:45 Visit Stop Time 12:30 Total Visit Minutes 45 Visit Number 29 Number of [employer]EARCH ASSOCIATE Visits 1 Precautions Precautions history of fusion c/s and l/s with metal. PT-OP-B Current Condition Start: 01/14/21 08:36 Freq: Status: Active Protocol: Document 08/14/21 14:00 LJ (Rec: 08/14/21 14:20 [id number]) Current Condition History of Current Condition Onset Date 1 year Current Complaints worsening LBP and neck pain and weakness arms and legs. PT-OP-C Subjective Start: 01/14/21 08:36 Freq: Status: Active Protocol: Document 08/14/21 14:20 (Rec: 08/14/21 14:24 [id number]) OP-PT Subjective Patient Comments Patient Comments Pt reports losing about 20 pounds in the last few months. States he is taking a new medication for the newly diagnosed lung condition which makes him dizzy. He experienced a short time of dizzinness when getting out of the car today prior to entering the pool but states he is feeling normal now. He will be going to [place] soon and will be gone for 2 months. PT-OP-G Mobility & Gait Start: 01/14/21 08:36 Freq: Status: Active Protocol: Document 01/17/21 14:31 RUSTY (Rec: 01/17/21 16:09 SAK [id number]) OP Gait Assessment Gait Gait Assistance Required: Independent Distance (Feet) 75 Gait Deviations General Gait Pattern Decreased Stride Length, Decreased Feet Clearance, Flexed Trunk Factors Limiting Gait Function Factors Limiting Gait Function Decreased Activity Tolerance, Decreased Strength,Pain PT-OP-J Posture/Palpation/Skin Start: 01/14/21 08:36 Freq: Status: Active Protocol: Document 01/17/21 14:31 [facility] (Rec: 01/17/21 16:09 [facility] [id number]) Posture Evaluation Position Standing Head/C-Spine Posture Forward Head T-Spine Posture Increased Kyphosis L-Spine Posture Decreased Lordosis Scapula Posture (L) Protracted,(R) Protracted Arm Posture (L) Internally Rotated,(R) Internally Rotated Pelvis Posture (L) Rotated Anterior,(R) Rotated Anterior Hip Posture (L) Flexed,(R) Flexed Knee Posture (L) Excess Flexion,(R) Excess Flexion Ankle/Foot Posture (L) Forefoot Eversion,(R) Forefoot Eversion Palpation Assessment Location bilateral cervical paraspinals, UT Palpation Findings Soft Tissue Tightness,Muscle Guarding,Tenderness diana lumbar paraspinals Palpation Findings Soft Tissue Tightness,Muscle Guarding,Tenderness Palpation Details tight diana, right greater than left PT-OP-K Range of Motion Start: 01/14/21 08:36 Freq: Status: Active Protocol: Document 01/17/21 14:31 [facility] (Rec: 01/17/21 16:09 [facility] [id number]) Cervical Spine Range of Motion Cervical Spine Active Degrees Testing Position Sitting Flexion 58 Extension 5 Rotation Left 27 Rotation Right 25 Lateral Flexion Left 14 Lateral Flexion Right 17 ROM Limitations Soft Tissue Tightness,Bony Restriction,Pain Lumbar Spine Range of Motion Lumbar Spine Active Degrees Flexion 20 Extension 0 Rotation Left 15 Rotation Right 15 Lateral Flexion Left 25 Lateral Flexion Right 25 Comments -10 deg ext with c/o increased pain Hip Goniometric Range of Motion Hip Left Flexion w/Knee Flexed 105 Straight Leg Raise 45 Internal Rotation 25 External Rotation 70 Right Flexion w/Knee Flexed 110 Straight Leg Raise 45 Internal Rotation 15 External Rotation 20 Hip ROM Limitations Comments -5 diana hip ext PT-OP-L Special Tests Start: 01/14/21 08:36 Freq: Status: Active Protocol: Document 01/17/21 14:31 [facility] (Rec: 01/17/21 16:09 [facility] [id number]) Special Tests Lumbar Spine Special Tests Manual Traction Test Results positive for increasing pain Horacio Test Results positive for hip flexor tightness diana Straight Leg Raise Test Results positive for muscle tightness not radicular pain Compression Test Results positive right Comments pain radiating to right posterior knee Hip Special Tests Piriformis Test Results positive right Scour Test Test Results negative diana PT-OP-M Strength Start: 01/14/21 08:36 Freq: Status: Active Protocol: Document 01/17/21 14:31 [facility] (Rec: 01/17/21 16:09 [facility] [id number]) Cervical Spine Strength Cervical Spine Manual Muscle Testing Flexion (C1-2) 4 Good Extension 4- Good- Rotation Left 4 Good Rotation Right 4 Good Lateral Flexion Left (C3) 4 Good Lateral Flexion Right (C3) 4 Good Trunk Strength Trunk Manual Muscle Testing Flexion 3+ Fair+ Extension 3+ Fair+ Rotation Left 4- Good- Rotation Right 4- Good- Lateral Flexion Left 4- Good- Lateral Flexion Right 4- Good- Shoulder Strength Shoulder Manual Muscle Testing diana Flexion 4 Good Extension 4- Good- External Rotation 4- Good- Internal Rotation 4- Good- Elbow/Forearm Strength Elbow and Forearm Manual Muscle Testing diana Flexion (C6) 4 Good Extension (C7) 4 Good PT-OP-Q Treatments Start: 01/14/21 08:36 Freq: Status: Active Protocol: Document 08/05/21 13:49 [facility] (Rec: 08/05/21 14:10 [facility] [id number]) Cardio Equipment Recumbent Stepper (Sci-Fit) Duration (Minutes) 10 Resistance 2.0 Seat Position 13 Gym Equipment Shuttle Recovery Unilateral Squats Resistance 37 Reps/Time 10x2 Bilateral Squats Resistance 75 Reps/Time 10x2 Therapeutic Exercises Supine Exercises SKTC Reps/Minutes 2x Comments manual HS stretch Reps/Minutes 2x Comments manual, patient laying on shuttle leg press Sitting Exercises hip ab/ER Resistance L2 TB Reps/Minutes 10x2 ball squeeze Equipment Used ball Reps/Minutes 10x Standing Exercises hip flexor stretch Standing Exercise Name with gluteal isometric Reps/Minutes 2x Manual Therapy Treatment Soft Tissue Mobilization lumbar paraspinals, piriformis Mobilization Type Myofascial Release,Rolling, Strumming Intensity/Depth Moderate Body Position Sitting Taping 1 Body Location bilateral lumbar paraspinals Treatment Focus inhibition, pain reduction Type of Tape kinesiotape Skin Inspection intact Comments paper off tension PT-OP-R Modalities Start: 01/14/21 08:36 Freq: Status: Active Protocol: Document 08/05/21 13:49 [facility] (Rec: 08/05/21 14:10 [facility] [id number]) Electric Stimulation Electric Stimulation Interferential Current (IFC) Body Location bilateral lumbar paraspinals Duration (Minutes) 15 Target/Sweep Sweep High/Low High Patient Position Sitting Combined With Heat/Cold Hot Pack Ultrasound Therapy Treatment Back Treatment Duration (minutes) 8 Patient Position Sitting Coupling Medium Ultrasound Gel Frequency Setting (mHz) 1 Mode Setting Continuous Duty Cycle 100% Intensity Setting (w/cm2) 1.4 Comments bilateral lumbar paraspinals PT-OP-S Aquatic Treatment Start: 08/14/21 13:59 Freq: Status: Active Protocol: Document 08/14/21 14:00 (Rec: 08/14/21 14:20 [id number]) Aquatics Treatment Pool Entry/Exit Pool Entry/Exit Method Stairs Assistance Independent Comments pt arrived 10 min early and began water walking Water Walking stop start forward and backwards Water Level Chest Level Level of Assistance Standby Assistance,Verbal Cues backward Water Level Chest Level Level of Assistance Standby Assistance,Verbal Cues march Water Level Chest Level Level of Assistance Standby Assistance Comments reaching for opposite knee forward, side Water Level Chest Level Level of Assistance Standby Assistance,Verbal Cues Lower Extremity Exercises HS curl at wall Water Level Chest Level Comments holding on to wall, cues for posture knee flex/ext Reps/Duration 10x bilat Comments (with 90 deg hip flex) circles Details pain-free ROM Reps/Duration 10x ea direction Comments mod UE support hip flex/ext Details gentle Reps/Duration 10x Comments mod UE support hip ab/ad Reps/Duration 10x Comments mod UE support heel toe raise Reps/Duration 10x Lower Extremity Stretches quad and hip flex Body Position Standing Water Level Chest Level Comments active stretch gently Single knee to chest bilat Reps/Duration 2x Comments gentle Upper Extremity Exercises figure 8s Body Position Standing Water Level Chest Level Reps/Duration 30 sec then rest30 sec x3 Comments bialt sh flex/ext Details diana and unil Water Level Chest Level Equipment UE paddles Reps/Duration 10x Comments DLS emphasis shoulder hor ab/ad Details daina Water Level Chest Level Reps/Duration 10x Upper Extremity Stretches shoulders Body Position Standing Water Level Chest Level Reps/Duration 10 bilat Comments active extension forward walking w/UE paddles Reps/Duration 30 M Comments no paddles; arms outstretched to sides [place] Activities Other Activities deep water hang 10 min Equipment [place] foam float, neck float Duration 10 minutes PT-OP-T Assessment and Plan Start: 01/14/21 08:36 Freq: Status: Active Protocol: Document 08/14/21 14:00 FLACO (Rec: 08/14/21 14:20 LJ [id number]) Physical Therapy Assessment Goals range of motion Impairment stiffness throughout patient's trunk and hips Short Term Goal (STG) Instruct in HEP to address soft tissue mobility impairments STG Duration goal met Senior Care Goal (LTG) Patient to demonstrate improvements in overall flexibility throughout trunk and hips and be safe and independent with HEP and aquatic exercise program for long-term fitness and pain management. 04/17/21: has not yet started aquatic exercise program; reports he plans to next week. He has had good compliance to HEP. LTG Duration 07/18/21 Strength Impairment weakness core and hips Short Term Goal (STG) Patient to begin land and aquatic exercise to address impairments in core and hip muscle strength with good tolerance 03/24/21: goal progress, hasn't started aquatic exercise yet 04/17/21: to start aquatic exercise next week. 06/17/21: due to lung diagnosis patient has not started back at pool for aquatic exercises 07/29/21: patient to be seen for aquatic PT 08/14/21 and Hospital Admitting Clerk Goal (LTG) Improve strength to at least 4 +/5 throughout trunk and LE's with patient demonstrating safety and independence with HEP and aquatic exercise program for long-term fitness and pain management. 03/21/21: some goal progress 04/17/21: good goal progress, strength improved to 4/5 except hip extension 4-/5 06/17/21: strength 4+/5 except hip extension still 4-/5 07/29/21: hip extension 4-/5, has pain with most hip extension ex, should tolerate better in pool LTG Duration 08/19/21 Pain Impairment Pain level 7/10 diana lumbar spine and 6/10 diana cervical spine Short Term Goal (STG) Decrease pain to no greater than 5/10 09/07/19: goal progress, 610 03/21/21: pain level variable, still up to 8/10 at times, more often recently at 4-5/10 04/17/21: pain varies from 2-8/ 10 lumbar spine, 2 to 4/10 right thigh 07/29/21: varies from 2-8/10, less after PT treatments. STG Duration not fully met Hospital Admitting Clerk Goal (LTG) Decrease pain to no greater than 3/10 04/17/21: goal progress as above 06/17/21: pain right thigh decreased to 2/10 with self- taping with kinesiotape. Pain lumbar spine still varies from 2-8/10, decreased with PT . 07/29/21: patient continues to self-tape right thigh for pain management with good results, unable to tape spine. Spinal pain highly variable, best when sitting. Feel stress level contributory. LTG Duration 08/19/21 Gait Impairment Requires use of walker, unable to walk community distances Short Term Goal (STG) Patient able to walk community distances with FWW with with minimal to no increase in pain. 03/21/21: patient ambulated from parking lot to waiting room, then into PT gym without using assistive device. Patient reports it is harder and he feels more pain, but wants to be able to do. Wants to go golfing again. 04/17/21: has played a couple rounds of golf without reporting increase in pain, as long as he stands only briefly to hit ball, then sits back in cart. 06/17: able to ambulate short distances using cane STG Duration goal progress, limited to 10 min Senior Care Goal (LTG) Patient able to ambulate with cane device for short community distances 03/21/21: only tolerates very short community distances (ie 100' or less), 04/17/21: using primarily cane, occasionally able to ambulate without device at this time, and demonstrating increase in speed 06/17/21: limited to 10 minutes of standing or walking, able to use cane. moderate forward flexion at trunk. 07/29/21: primarily using cane though with minimal ability to extend trunk to upright position due to pain; ambulates with approx 25-30 deg flexion. Tolerates very short community distances before needing to sit down. LTG Duration goal met Activity tolerance Impairment Oswestry disability index score 48% Short Term Goal (STG) Decrease Oswestry score to no greater than 38% as measure of improved patient tolerance for usual daily activities 09/07/19: 52% 03/21/21: decreased to 44%, goal progress 04/17/21:decreased to 38% STG Duration goal met Senior Care Goal (LTG) Decrease Oswestry score to no greater than 25% as measure of improved activity tolerance 06/17/21: decreased to 40% 07/29/21: GREGORIA score 40% LTG Duration 07/18/21 Progress Towards Goals Progress Towards Goals Slow Progress due to Medical Issues Assessment Summary Assessment Pt experienced increased pain when initially getting into the water and with one of the walking activities which was immediately stopped. Exercises were kept to a limited effort due to increased pain and some difficulty with balance and coordination. Physical Therapy Plan Next Visit Focus/Plan Next Note Type Treatment Note Next Visit Plan core flexibility and core stabilization as well as pain managent
--- NOTE | 2021-08-19 14:56 | PT.OTN ---
Current Diagnoses Chronic pain syndrome (08/14/21) Radiculopathy, lumbar region (08/14/21) Cervicalgia (08/14/21) Iliotibial band syndrome, right leg (08/14/21) Arthrodesis status (08/14/21) Other specified postprocedural states (08/14/21) Physical Therapy Treatment Note PT-OP-A Visit Information Start: 01/14/21 08:36 Freq: Status: Active Protocol: Document 08/19/21 14:43 LJ (Rec: 08/19/21 14:56 LJ [id number]) Out-Patient Physical Therapy Visit Information Visit Information Visit Type Aquatic Treatment Note Visit Start Time 12:30 Visit Stop Time 13:15 Total Visit Minutes 45 Visit Number 30 Number of CORPORATE TRAFFIC MANAGER Visits 2 PT-OP-B Current Condition Start: 01/14/21 08:36 Freq: Status: Active Protocol: Document 08/14/21 14:00 LJ (Rec: 08/14/21 14:20 LJ [id number]) Current Condition History of Current Condition Onset Date 1 year Current Complaints worsening LBP and neck pain and weakness arms and legs. PT-OP-C Subjective Start: 01/14/21 08:36 Freq: Status: Active Protocol: Document 08/19/21 14:43 LJ (Rec: 08/19/21 14:56 LJ [id number]) OP-PT Subjective Patient Comments Patient Comments Pt states he experienced new pain in right side lower back yesterday. States he may have hurt it golfing. He is able to alleviate it with positional changes. He will be leaving soon for 2 month trip to [place] PT-OP-G Mobility & Gait Start: 01/14/21 08:36 Freq: Status: Active Protocol: Document 01/17/21 14:31 SAK (Rec: 01/17/21 16:09 SAK [id number]) OP Gait Assessment Gait Gait Assistance Required: Independent Distance (Feet) 75 Gait Deviations General Gait Pattern Decreased Stride Length, Decreased Feet Clearance, Flexed Trunk Factors Limiting Gait Function Factors Limiting Gait Function Decreased Activity Tolerance, Decreased Strength,Pain PT-OP-J Posture/Palpation/Skin Start: 01/14/21 08:36 Freq: Status: Active Protocol: Document 01/17/21 14:31 SAK (Rec: 01/17/21 16:09 SAK [id number]) Posture Evaluation Position Standing Head/C-Spine Posture Forward Head T-Spine Posture Increased Kyphosis L-Spine Posture Decreased Lordosis Scapula Posture (L) Protracted,(R) Protracted Arm Posture (L) Internally Rotated,(R) Internally Rotated Pelvis Posture (L) Rotated Anterior,(R) Rotated Anterior Hip Posture (L) Flexed,(R) Flexed Knee Posture (L) Excess Flexion,(R) Excess Flexion Ankle/Foot Posture (L) Forefoot Eversion,(R) Forefoot Eversion Palpation Assessment Location bilateral cervical paraspinals, [place] Palpation Findings Soft Tissue Tightness,Muscle Guarding,Tenderness diana lumbar paraspinals Palpation Findings Soft Tissue Tightness,Muscle Guarding,Tenderness Palpation Details tight diana, right greater than left PT-OP-K Range of Motion Start: 01/14/21 08:36 Freq: Status: Active Protocol: Document 01/17/21 14:31 [facility] (Rec: 01/17/21 16:09 [facility] [id number]) Cervical Spine Range of Motion Cervical Spine Active Degrees Testing Position Sitting Flexion 58 Extension 5 Rotation Left 27 Rotation Right 25 Lateral Flexion Left 14 Lateral Flexion Right 17 ROM Limitations Soft Tissue Tightness,Bony Restriction,Pain Lumbar Spine Range of Motion Lumbar Spine Active Degrees Flexion 20 Extension 0 Rotation Left 15 Rotation Right 15 Lateral Flexion Left 25 Lateral Flexion Right 25 Comments -10 deg ext with c/o increased pain Hip Goniometric Range of Motion Hip Left Flexion w/Knee Flexed 105 Straight Leg Raise 45 Internal Rotation 25 External Rotation 70 Right Flexion w/Knee Flexed 110 Straight Leg Raise 45 Internal Rotation 15 External Rotation 20 Hip ROM Limitations Comments -5 diana hip ext PT-OP-L Special Tests Start: 01/14/21 08:36 Freq: Status: Active Protocol: Document 01/17/21 14:31 SAK (Rec: 01/17/21 16:09 [facility] [id number]) Special Tests Lumbar Spine Special Tests Manual Traction Test Results positive for increasing pain Horacio Test Results positive for hip flexor tightness diana Straight Leg Raise Test Results positive for muscle tightness not radicular pain Compression Test Results positive right Comments pain radiating to right posterior knee Hip Special Tests Piriformis Test Results positive right Scour Test Test Results negative diana PT-OP-M Strength Start: 01/14/21 08:36 Freq: Status: Active Protocol: Document 01/17/21 14:31 SAK (Rec: 01/17/21 16:09 [facility] [id number]) Cervical Spine Strength Cervical Spine Manual Muscle Testing Flexion (C1-2) 4 Good Extension 4- Good- Rotation Left 4 Good Rotation Right 4 Good Lateral Flexion Left (C3) 4 Good Lateral Flexion Right (C3) 4 Good Trunk Strength Trunk Manual Muscle Testing Flexion 3+ Fair+ Extension 3+ Fair+ Rotation Left 4- Good- Rotation Right 4- Good- Lateral Flexion Left 4- Good- Lateral Flexion Right 4- Good- Shoulder Strength Shoulder Manual Muscle Testing diana Flexion 4 Good Extension 4- Good- External Rotation 4- Good- Internal Rotation 4- Good- Elbow/Forearm Strength Elbow and Forearm Manual Muscle Testing diana Flexion (C6) 4 Good Extension (C7) 4 Good PT-OP-Q Treatments Start: 01/14/21 08:36 Freq: Status: Active Protocol: Document 08/05/21 13:49 [facility] (Rec: 08/05/21 14:10 [facility] [id number]) Cardio Equipment Recumbent Stepper (Sci-Fit) Duration (Minutes) 10 Resistance 2.0 Seat Position 13 Gym Equipment Shuttle Recovery Unilateral Squats Resistance 37 Reps/Time 10x2 Bilateral Squats Resistance 75 Reps/Time 10x2 Therapeutic Exercises Supine Exercises SKTC Reps/Minutes 2x Comments manual HS stretch Reps/Minutes 2x Comments manual, patient laying on shuttle leg press Sitting Exercises hip ab/ER Resistance L2 TB Reps/Minutes 10x2 ball squeeze Equipment Used ball Reps/Minutes 10x Standing Exercises hip flexor stretch Standing Exercise Name with gluteal isometric Reps/Minutes 2x Manual Therapy Treatment Soft Tissue Mobilization lumbar paraspinals, piriformis Mobilization Type Myofascial Release,Rolling, Strumming Intensity/Depth Moderate Body Position Sitting Taping 1 Body Location bilateral lumbar paraspinals Treatment Focus inhibition, pain reduction Type of Tape kinesiotape Skin Inspection intact Comments paper off tension PT-OP-R Modalities Start: 01/14/21 08:36 Freq: Status: Active Protocol: Document 08/05/21 13:49 [facility] (Rec: 08/05/21 14:10 [facility] [id number]) Electric Stimulation Electric Stimulation Interferential Current (IFC) Body Location bilateral lumbar paraspinals Duration (Minutes) 15 Target/Sweep Sweep High/Low High Patient Position Sitting Combined With Heat/Cold Hot Pack Ultrasound Therapy Treatment Back Treatment Duration (minutes) 8 Patient Position Sitting Coupling Medium Ultrasound Gel Frequency Setting (mHz) 1 Mode Setting Continuous Duty Cycle 100% Intensity Setting (w/cm2) 1.4 Comments bilateral lumbar paraspinals PT-OP-S Aquatic Treatment Start: 08/14/21 13:59 Freq: Status: Active Protocol: Document 08/19/21 14:43 FLACO (Rec: 08/19/21 14:56 LJ [id number]) Aquatics Treatment Pool Entry/Exit Pool Entry/Exit Method Stairs Assistance Independent Comments pt arrived 10 min early and began water walking Water Walking stop start forward and backwards Water Level Chest Level Level of Assistance Standby Assistance,Verbal Cues forward with UE paddles Water Level Chest Level Walking Equipment smiley faces Level of Assistance Verbal Cues backward Water Level Chest Level Level of Assistance Standby Assistance,Verbal Cues march Water Level Chest Level Level of Assistance Standby Assistance Comments reaching for opposite knee forward, side Water Level Chest Level Level of Assistance Standby Assistance,Verbal Cues Lower Extremity Exercises squats Body Position Standing Water Level Chest Level Reps/Duration 10 circles Details pain-free ROM Reps/Duration 10x ea direction Comments mod UE support hip flex/ext Details gentle Reps/Duration 10x Comments mod UE support hip ab/ad Reps/Duration 10x Comments mod UE support heel toe raise Reps/Duration 10x Lower Extremity Stretches quad and hip flex Body Position Standing Water Level Chest Level Comments active stretch gently Single knee to chest bilat Reps/Duration 2x Comments gentle HS, ITB, hip add Body Position Standing Water Level Chest Level Equipment Small Noodle Reps/Duration 30 sec x 2 B Upper Extremity Exercises rows Details at wall Body Position Standing Water Level Chest Level Equipment smiley faces Reps/Duration 10 figure 8s Body Position Standing Water Level Chest Level Reps/Duration 30 sec then rest30 sec x3 Comments bialt sh flex/ext Details diana and unil Water Level Chest Level Equipment UE paddles Reps/Duration 10x Comments DLS emphasis shoulder hor ab/ad Details diana Water Level Chest Level Reps/Duration 10x Upper Extremity Stretches shoulders Body Position Standing Water Level Chest Level Reps/Duration 10 bilat Comments active extension forward walking w/UE paddles Reps/Duration 30 M Comments no paddles; arms outstretched to sides [place] Activities Other Activities deep water hang 10 min Equipment [place] foam float, neck float Duration 10 minutes PT-OP-T Assessment and Plan Start: 01/14/21 08:36 Freq: Status: Active Protocol: Document 08/19/21 14:43 FLACO (Rec: 08/19/21 14:56 FLACO [id number]) Physical Therapy Assessment Goals range of motion Impairment stiffness throughout patient's trunk and hips Short Term Goal (STG) Instruct in HEP to address soft tissue mobility impairments STG Duration goal met Surg Physician Asst Goal (LTG) Patient to demonstrate improvements in overall flexibility throughout trunk and hips and be safe and independent with HEP and aquatic exercise program for long-term fitness and pain management. 04/17/21: has not yet started aquatic exercise program; reports he plans to next week. He has had good compliance to HEP. LTG Duration 07/18/21 Strength Impairment weakness core and hips Short Term Goal (STG) Patient to begin land and aquatic exercise to address impairments in core and hip muscle strength with good tolerance 03/24/21: goal progress, hasn't started aquatic exercise yet 04/17/21: to start aquatic exercise next week. 06/17/21: due to lung diagnosis patient has not started back at pool for aquatic exercises 07/29/21: patient to be seen for aquatic PT 08/14/21 and [facility] Goal (LTG) Improve strength to at least 4 +/5 throughout trunk and LE's with patient demonstrating safety and independence with HEP and aquatic exercise program for long-term fitness and pain management. 03/21/21: some goal progress 04/17/21: good goal progress, strength improved to 4/5 except hip extension 4-/5 06/17/21: strength 4+/5 except hip extension still 4-/5 07/29/21: hip extension 4-/5, has pain with most hip extension ex, should tolerate better in pool LTG Duration 08/19/21 Pain Impairment Pain level 7/10 diana lumbar spine and 6/10 diana cervical spine Short Term Goal (STG) Decrease pain to no greater than 5/10 09/07/19: goal progress, 6/10 03/21/21: pain level variable, still up to 8/10 at times, more often recently at 4-5/10 04/17/21: pain varies from 2-8/ 10 lumbar spine, 2 to 4/10 right thigh 07/29/21: varies from 2-8/10, less after PT treatments. STG Duration not fully met Mcc Goal (LTG) Decrease pain to no greater than 3/10 04/17/21: goal progress as above 06/17/21: pain right thigh decreased to 2/10 with self- taping with kinesiotape. Pain lumbar spine still varies from 2-8/10, decreased with PT . 07/29/21: patient continues to self-tape right thigh for pain management with good results, unable to tape spine. Spinal pain highly variable, best when sitting. Feel stress level contributory. LTG Duration 08/19/21 Gait Impairment Requires use of walker, unable to walk community distances Short Term Goal (STG) Patient able to walk community distances with FWW with with minimal to no increase in pain. 03/21/21: patient ambulated from parking lot to waiting room, then into PT gym without using assistive device. Patient reports it is harder and he feels more pain, but wants to be able to do. Wants to go golfing again. 04/17/21: has played a couple rounds of golf without reporting increase in pain, as long as he stands only briefly to hit ball, then sits back in cart. 06/17: able to ambulate short distances using cane STG Duration goal progress, limited to 10 min Mcc Goal (LTG) Patient able to ambulate with cane device for short community distances 03/21/21: only tolerates very short community distances (ie 100' or less), 04/17/21: using primarily cane, occasionally able to ambulate without device at this time, and demonstrating increase in speed 06/17/21: limited to 10 minutes of standing or walking, able to use cane. moderate forward flexion at trunk. 07/29/21: primarily using cane though with minimal ability to extend trunk to upright position due to pain; ambulates with approx 25-30 deg flexion. Tolerates very short community distances before needing to sit down. LTG Duration goal met Activity tolerance Impairment Oswestry disability index score 48% Short Term Goal (STG) Decrease Oswestry score to no greater than 38% as measure of improved patient tolerance for usual daily activities 09/07/19: 52% 03/21/21: decreased to 44%, goal progress 04/17/21:decreased to 38% STG Duration goal met Mcc Goal (LTG) Decrease Oswestry score to no greater than 25% as measure of improved activity tolerance 06/17/21: decreased to 40% 07/29/21: GREGORIA score 40% LTG Duration 07/18/21 Progress Towards Goals Progress Towards Goals Slow Progress due to Medical Issues Assessment Summary Assessment Pt tolerated AT well with gentle movements overall. Will be gone for 2 months and has HEP to continue with if he can find a pool to use in [place]. Physical Therapy Plan Frequency and Duration Frequency of Treatment 1x/Week Duration of Treatment 4 weeks Plan of Care Start Date 07/29/21 Plan of Care End Date 08/29/21 Therapeutic Interventions Therapeutic Interventions Aquatic Therapy,Gait Training, Home Exercise Program,Manual Therapy,Neuromuscular Re- education,Patient/Caregiver Education,Self-Care/Home Management,Soft Tissue Mobilization,Taping, Therapeutic Activities, Therapeutic Exercises Modalities Electric Stimulation,Hot Packs ,Infrared Therapy,Ultrasound Next Visit Focus/Plan Next Note Type Treatment Note Next Visit Plan core flexibility and core stabilization as well as pain management
--- NOTE | 2021-08-19 16:28 | PT.OPDS ---
Current Diagnoses Chronic pain syndrome (08/14/21) Radiculopathy, lumbar region (08/14/21) Cervicalgia (08/14/21) Iliotibial band syndrome, right leg (08/14/21) Arthrodesis status (08/14/21) Other specified postprocedural states (08/14/21) Visit Care Team Role Provider Type Shiva Tirado DO Attending Provider Physician Primary Care Provider Referring Provider Specialty: [facility] Address: [address] [place] [address], [facility] Email: Visit Number Visit Number 30 Discharge Summary PT-OP-B Current Condition Start: 01/14/21 08:36 Freq: Status: Active Protocol: Document 08/14/21 14:00 LJ (Rec: 08/14/21 14:20 LJ [id number]) Current Condition History of Current Condition Onset Date 1 year Current Complaints worsening LBP and neck pain and weakness arms and legs. PT-OP-C Subjective Start: 01/14/21 08:36 Freq: Status: Active Protocol: Document 08/19/21 14:43 LJ (Rec: 08/19/21 14:56 LJ [id number]) OP-PT Subjective Patient Comments Patient Comments Pt states he experienced new pain in right side lower back yesterday. States he may have hurt it golfing. He is able to alleviate it with positional changes. He will be leaving soon for 2 month trip to [place] PT-OP-G Mobility & Gait Start: 01/14/21 08:36 Freq: Status: Active Protocol: Document 01/17/21 14:31 SAK (Rec: 01/17/21 16:09 [facility] [id number]) OP Gait Assessment Gait Gait Assistance Required: Independent Distance (Feet) 75 Gait Deviations General Gait Pattern Decreased Stride Length, Decreased Feet Clearance, Flexed Trunk Factors Limiting Gait Function Factors Limiting Gait Function Decreased Activity Tolerance, Decreased Strength,Pain PT-OP-J Posture/Palpation/Skin Start: 01/14/21 08:36 Freq: Status: Active Protocol: Document 01/17/21 14:31 SAK (Rec: 01/17/21 16:09 SAK [id number]) Posture Evaluation Position Standing Head/C-Spine Posture Forward Head T-Spine Posture Increased Kyphosis L-Spine Posture Decreased Lordosis Scapula Posture (L) Protracted,(R) Protracted Arm Posture (L) Internally Rotated,(R) Internally Rotated Pelvis Posture (L) Rotated Anterior,(R) Rotated Anterior Hip Posture (L) Flexed,(R) Flexed Knee Posture (L) Excess Flexion,(R) Excess Flexion Ankle/Foot Posture (L) Forefoot Eversion,(R) Forefoot Eversion Palpation Assessment Location bilateral cervical paraspinals, [place] Palpation Findings Soft Tissue Tightness,Muscle Guarding,Tenderness diana lumbar paraspinals Palpation Findings Soft Tissue Tightness,Muscle Guarding,Tenderness Palpation Details tight diana, right greater than left PT-OP-K Range of Motion Start: 01/14/21 08:36 Freq: Status: Active Protocol: Document 01/17/21 14:31 [facility] (Rec: 01/17/21 16:09 [facility] [id number]) Cervical Spine Range of Motion Cervical Spine Active Degrees Testing Position Sitting Flexion 58 Extension 5 Rotation Left 27 Rotation Right 25 Lateral Flexion Left 14 Lateral Flexion Right 17 ROM Limitations Soft Tissue Tightness,Bony Restriction,Pain Lumbar Spine Range of Motion Lumbar Spine Active Degrees Flexion 20 Extension 0 Rotation Left 15 Rotation Right 15 Lateral Flexion Left 25 Lateral Flexion Right 25 Comments -10 deg ext with c/o increased pain Hip Goniometric Range of Motion Hip Left Flexion w/Knee Flexed 105 Straight Leg Raise 45 Internal Rotation 25 External Rotation 70 Right Flexion w/Knee Flexed 110 Straight Leg Raise 45 Internal Rotation 15 External Rotation 20 Hip ROM Limitations Comments -5 diana hip ext PT-OP-L Special Tests Start: 01/14/21 08:36 Freq: Status: Active Protocol: Document 01/17/21 14:31 [facility] (Rec: 01/17/21 16:09 [facility] [id number]) Special Tests Lumbar Spine Special Tests Manual Traction Test Results positive for increasing pain Horacio Test Results positive for hip flexor tightness diana Straight Leg Raise Test Results positive for muscle tightness not radicular pain Compression Test Results positive right Comments pain radiating to right posterior knee Hip Special Tests Piriformis Test Results positive right Scour Test Test Results negative diana PT-OP-M Strength Start: 01/14/21 08:36 Freq: Status: Active Protocol: Document 01/17/21 14:31 SAK (Rec: 01/17/21 16:09 [facility] [id number]) Cervical Spine Strength Cervical Spine Manual Muscle Testing Flexion (C1-2) 4 Good Extension 4- Good- Rotation Left 4 Good Rotation Right 4 Good Lateral Flexion Left (C3) 4 Good Lateral Flexion Right (C3) 4 Good Trunk Strength Trunk Manual Muscle Testing Flexion 3+ Fair+ Extension 3+ Fair+ Rotation Left 4- Good- Rotation Right 4- Good- Lateral Flexion Left 4- Good- Lateral Flexion Right 4- Good- Shoulder Strength Shoulder Manual Muscle Testing diana Flexion 4 Good Extension 4- Good- External Rotation 4- Good- Internal Rotation 4- Good- Elbow/Forearm Strength Elbow and Forearm Manual Muscle Testing diana Flexion (C6) 4 Good Extension (C7) 4 Good PT-OP-T Assessment and Plan Start: 01/14/21 08:36 Freq: Status: Active Protocol: Document 08/19/21 16:28 [facility]USTY (Rec: 08/19/21 16:28 [facility] [id number]) Physical Therapy Plan Discharge Physical Therapy Discharge Comments Patient independent in HEP and aquatic exercise program. Will be gone 2 months. Discharged from PT at this time.
== END 2021-08-29 13:13 ==
LOC: PHYS 12:30
PROVIDERS: PCP Family Medicine; Referring Provider Family Medicine; Visit Provider Family Medicine
DX: M76.31 Iliotibial band syndrome, right leg (principal); G89.4 Chronic pain syndrome; M54.2 Cervicalgia; Z98.890 Other specified postprocedural states; Z98.1 Arthrodesis status; M54.16 Radiculopathy, lumbar region
CPT/HCPCS: 97014; 97035; 97110; 97113; 97140; 97530; 97535; G0283

== ENCOUNTER → 2022-03-31 14:14 | Outpatient (CLI) | payer MEDICARE, OTHER, SELFPAY | PROVIDERS: PCP Family Medicine; Referring Provider Family Medicine; Visit Provider Family Medicine | DX: S91.301A Unspecified open wound, right foot, initial encounter (principal); L08.9 Local infection of the skin and subcutaneous tissue, unspecified; L92.8 Other granulomatous disorders of the skin and subcutaneous tissue; I73.9 Peripheral vascular disease, unspecified; I25.119 Atherosclerotic heart disease of native coronary artery with unspecified angina pectoris; J84.112 Idiopathic pulmonary fibrosis; M19.071 Primary osteoarthritis, right ankle and foot; X58.XXXA Exposure to other specified factors, initial encounter | CPT/HCPCS: 11042; 73630; 87070; 87075; 87205; 93922; 99204; 99214 ==

== ENCOUNTER → 2022-03-31 15:55 | Outpatient (CLI) | payer MEDICARE, OTHER, SELFPAY ==
--- NOTE | 2022-03-31 15:57 | DI.RAD.S_ITS ---
PROCEDURE: XR FOOT RT MIN 3V INDICATIONS: evaluate for foreign body TECHNIQUE: 3 views of the foot were acquired. COMPARISON: None. FINDINGS: Bones: No fractures or dislocations. No suspicious bony lesions. Joint space narrowing most pronounced at the 1st MTP joint. There is degenerative osteophytosis. Tiny plantar calcaneal spur. Soft tissues: No tibiotalar joint effusion. Achilles tendon appears normal. No radiopaque foreign body is identified. There is a small clip adjacent to the medial ankle. IMPRESSION: No radiopaque foreign body is identified. 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 Dictated by: Paul Silva M.D. on 03/31/2022 at 16:43 Approved by: Paul Silva M.D. on 03/31/2022 at 16:46
== END ==
PROVIDERS: PCP Family Medicine; Referring Provider Family Medicine; Visit Provider Family Medicine
DX: S91.301A Unspecified open wound, right foot, initial encounter (principal); M19.071 Primary osteoarthritis, right ankle and foot; X58.XXXA Exposure to other specified factors, initial encounter
CPT/HCPCS: 73630

== ENCOUNTER → 2022-04-03 11:53 | Outpatient (CLI) | payer MEDICARE, OTHER, SELFPAY | PROVIDERS: PCP Family Medicine; Referring Provider Family Medicine; Visit Provider Family Medicine | DX: S91.301A Unspecified open wound, right foot, initial encounter (principal) | CPT/HCPCS: 99212 ==

== ENCOUNTER → 2022-04-07 10:47 | Outpatient (CLI) | payer MEDICARE, OTHER, SELFPAY | PROVIDERS: PCP Family Medicine; Referring Provider Family Medicine; Visit Provider Family Medicine | DX: S91.301A Unspecified open wound, right foot, initial encounter (principal) | CPT/HCPCS: 99213 ==

== ENCOUNTER → 2022-04-09 09:35 | Outpatient (CLI) | payer MEDICARE, OTHER, SELFPAY | PROVIDERS: PCP Family Medicine; Referring Provider Family Medicine; Visit Provider Family Medicine | DX: S91.301A Unspecified open wound, right foot, initial encounter (principal) | CPT/HCPCS: 99213 ==

== ENCOUNTER 2022-04-14 04:29 | Emergency (ER) | payer MEDICARE, OTHER, SELFPAY ==
[2022-04-14] VITALS (13 sets, daily range): BP systolic 91–132; BP diastolic 55–66; PULSE 54–78; RESP 12–23; TEMP 36.6; O2SAT 85–99; BMI 20.8
--- NOTE | 2022-04-14 04:33 | ED.CHESTPAIN ---
HPI - Chest Pain <Thomaslizzy Galeas DO - Last Filed: 04/15/22 06:45> General Chief Complaint: Dizziness Stated Complaint: cardiac difficults, dizzy and several other issues Time Seen by Provider: 04/14/22 04:33 History of Present Illness HPI narrative: 81-year-old male former smoker with extensive cardiac history including multiple bypasses and stents as well as prior stroke, hypertension, hyperlipidemia and what sounds like a recent diagnosis of pulmonary fibrosis presents with a chief complaint of a few days of not feeling right. He states that he has episodes where his blood pressure is high and other times his blood pressure is low. He feels dizzy on occasion and seems to be worse when he turns his head 1 way or the other or stands up. He denies fever or chills nor recent injury or trauma. He denies chest pain or shortness of breath. He has had no nausea, vomiting or diarrhea. He denies any urinary complaints such as dysuria, frequency or urgency. He denies any blurred vision or trouble with speech. He states that he historically had been taking medications to treat his blood pressure but has been losing weight and therefore was unable to come off of his blood pressure pills. He states that he was feeling funny this morning and thought he saw blood pressure of 180 and took a metoprolol and on arrival his blood pressure was 90 Related Data Home Medications Medication Instructions Recorded Confirmed aspirin 81 mg chewable tablet 81 mg PO QDAY ##0 08/28/12 03/19/22 metoprolol tartrate 50 mg tablet 25 mg PO BID ##0 03/25/17 03/19/22 (Lopressor) atorvastatin 40 mg tablet 40 mg PO DAILY 07/29/18 03/19/22 nitroglycerin 0.4 mg sublingual 0.4 mg sublingual Q5-15M PRN 03/16/19 03/19/22 tablet (Nitrostat) lisinopril 5 mg tablet 2.5 mg PO DAILY #0 tabs 12/14/20 03/19/22 Previous Rx's Medication Instructions Recorded Disabled Parking Pass #1 ea 09/29/18 CMP KCCDGT 09/18///03/20% See Rx Instructions .Route 08/31/20 .COMPLEX #200 ea [facility] KCGT 09/18///03/20% See Rx Instructions .Route 08/31/20 .COMPLEX #200 ea compound cream as below #180 grams 09/12/20 ibuprofen 600 mg tablet See Rx Instructions .Route 09/12/20 .COMPLEX #270 tabs clonazepam 0.25 mg disintegrating 0.25 mg PO DAILY #20 tabs 11/28/20 tablet acetazolamide 250 mg tablet 250 mg PO BID #60 tabs 12/06/20 levalbuterol tartrate 45 2 puff inhalation Q4-6H PRN 02/05/21 mcg/actuation aerosol inhaler shortness of breath #15 grams sulfamethoxazole 800 1 tab PO BID #14 tabs 02/13/21 mg-trimethoprim 160 mg tablet meclizine 25 mg tablet 25 mg PO DAILY PRN dizziness #90 05/15/21 tabs albuterol sulfate 90 mcg/actuation See Rx Instructions .Route 12/30/21 aerosol inhaler .COMPLEX #54 grams methocarbamol 500 mg tablet 1,500 mg PO TID #90 tabs 02/13/22 buprenorphine 20 mcg/hour weekly 1 patch transdermal QWEEK #4 ea 03/30/22 transdermal patch hydrocodone 5 mg-acetaminophen 325 See Rx Instructions PO Q4-6H PRN 04/03/22 mg tablet pain #300 tabs ondansetron 4 mg disintegrating See Rx Instructions PO .COMPLEX 04/03/22 tablet PRN nausea and vomiting #90 tabs fluticasone 250 mcg-salmeterol 50 See Rx Instructions .Route 04/07/22 mcg/dose blistr powdr for .COMPLEX #180 blisters inhalation Allergies Allergy/AdvReac Type Severity Reaction Status Date / Time propoxyphene [From Darvon] Allergy Verified 03/19/22 11:04 nitrofurantoin AdvReac Intermediate Verified 03/19/22 11:04 Review of Systems <Thomas Galeas, DO - Last Filed: 04/15/22 06:45> Review of Systems Narrative: GENERAL: Denies chills, fatigue, malaise, fever, sweats. HEENT: See HPI RESPIRATORY: Denies dyspnea, cough, wheezing, hemoptysis, sputum. CARDIOVASCULAR: See HPI GASTROINTESTINAL: Denies nausea, vomiting, abdominal pain, diarrhea, constipation, melena. : Denies dysuria, frequency, incontinence, hematuria, urinary retention. MUSCULOSKELETAL: denies weakness, joint pain, or bony pain SKIN: Denies rash, skin lesions, or other NEUROLOGIC: See HPI PSYCHIATRIC: No concerning psychosocial issues. 12 point review of systems is negative except for those stated above Patient History <Thomas Galeas DO - Last Filed: 04/15/22 06:45> Medical History Atrial fibrillation (~1993) Bilateral lower extremity edema Bladder cancer BPH (benign prostatic hyperplasia) Cervical somatic dysfunction Cervical spine disease Chronic neck pain Chronic, continuous use of opioids Coordination of complex care Coronary artery disease Counseling regarding advanced care planning and goals of care Counseling regarding end of life decision making Excessive cerumen in both ear canals Flushing GERD (gastroesophageal reflux disease) Hypertension Hypotension Idiopathic pulmonary fibrosis Iliotibial band syndrome, right leg Increased frequency of urination Increasing shortness of breath Macrocytosis Malaise and fatigue Menieres disease Muscular deconditioning Myocardial infarction (1978) Nausea Nausea alone Night sweats Pelvic somatic dysfunction Rib pain on left side Segmental and somatic dysfunction of abdomen and other regions Segmental and somatic dysfunction of lower extremity Segmental and somatic dysfunction of lumbar region Segmental and somatic dysfunction of rib cage Segmental and somatic dysfunction of sacral region Segmental and somatic dysfunction of thoracic region Somatic dysfunction of lower extremity Thoracic aortic aneurysm Tremor Wound, open, foot Surgical History History of abdominal aortic aneurysm repair (~2006) Hx of cervical discectomy Hx of coronary artery bypass graft (~1980) Hx of laminectomy (~04/2016) Hx of transurethral resection of prostate S/P carotid endarterectomy (~1990) Family History Father No problems noted. Mother No problems noted. Social History Smoking Status: Former smoker Tobacco: How many years used: 19 second hand exposure: No alcohol intake: never substance use type: does not use Smoking Status: Former smoker alcohol intake frequency: holidays/special occasions only Substance Use Type: does not use Exam <Thomas Galeas DO - Last Filed: 04/15/22 06:45> Narrative Exam Narrative: GENERAL: [81] year old patient appears stated age. Well-developed patient, in mild distress. Anxious HEAD: Atraumatic. Normocephalic. EYES: Pupils equal round and reactive. Extraocular motions intact. No scleral icterus. No injection or drainage. ENT: Nose without bleeding, purulent drainage. Throat without erythema, tonsillar hypertrophy or exudate. Airway patent. NECK: Trachea midline. Non tender CARDIOVASCULAR: Regular rate and rhythm without murmurs, gallops, or rubs. RESPIRATORY: Clear to auscultation. Breath sounds equal bilaterally. No wheezes, rales, or rhonchi. GASTROINTESTINAL: Abdomen soft, non-tender, nondistended. EXTREMITIES: No edema or joint tenderness. BACK: Nontender without deformity or crepitance. No flank tenderness. NEURO: AOx3. SKIN: No rash or erythema of visible areas Initial Vital Signs Initial Vital Signs: Vital Signs Temperature 97.8 F 04/14/22 04:43 Pulse Rate 78 04/14/22 04:43 Respiratory Rate 16 04/14/22 04:43 Blood Pressure 91/56 L 04/14/22 04:43 Pulse Oximetry 97 04/14/22 04:43 Oxygen Delivery Method 04/14/22 04:43 <Aleena Portillo DO - Last Filed: 04/14/22 19:01> Initial Vital Signs Initial Vital Signs: Vital Signs Temperature 97.8 F 04/14/22 04:43 Pulse Rate 78 04/14/22 04:43 Respiratory Rate 16 04/14/22 04:43 Blood Pressure 91/56 L 04/14/22 04:43 Pulse Oximetry 97 04/14/22 04:43 Oxygen Delivery Method 04/14/22 04:43 Course <Thomas Galeas DO - Last Filed: 04/15/22 06:45> Orders Ordered: Discontinued Medications Sodium Chloride (Normal Saline 0.9%) 1,000 mls @ 150 mls/hr IV CONT JUAN Last Infusion: 04/14/22 10:37 Dose: 0 mls/hr Documented By: Admin: 04/14/22 05:15 Dose: 150 mls/hr Documented By: RF Vital Signs Vital signs: Vital Signs - 8 hr 04/14/22 04:43 04/14/22 06:25 04/14/22 06:24 Temperature 97.8 F Pulse Rate 78 54 L 54 L Respiratory Rate 16 14 Blood Pressure 91/56 L 106/55 L Pulse Oximetry 97 96 Oxygen Delivery Method Room Air Oxygen Flow Rate 04/14/22 06:41 04/14/22 06:42 04/14/22 06:42 Temperature Pulse Rate 58 L 58 L Respiratory Rate 19 15 Blood Pressure 97/56 L Pulse Oximetry 98 98 Oxygen Delivery Method Oxygen Flow Rate 04/14/22 07:00 04/14/22 07:30 04/14/22 08:35 Temperature Pulse Rate 57 L 55 L 65 Respiratory Rate 23 20 Blood Pressure Pulse Oximetry 98 99 85 L Oxygen Delivery Method Room Air Oxygen Flow Rate 04/14/22 08:38 04/14/22 08:38 04/14/22 09:00 Temperature Pulse Rate 63 Respiratory Rate 12 Blood Pressure 111/66 120/66 Pulse Oximetry 98 Oxygen Delivery Method Nasal Cannula Oxygen Flow Rate 2 04/14/22 09:00 Temperature Pulse Rate 66 Respiratory Rate 14 Blood Pressure Pulse Oximetry 96 Oxygen Delivery Method Oxygen Flow Rate <Aleena Portillo, DO - Last Filed: 04/14/22 19:01> Orders Ordered: Discontinued Medications Sodium Chloride (Normal Saline 0.9%) 1,000 mls @ 150 mls/hr IV CONT JUAN Last Infusion: 04/14/22 10:37 Dose: 0 mls/hr Documented By: Admin: 04/14/22 05:15 Dose: 150 mls/hr Documented By: MAYITO Vital Signs Vital signs: Vital Signs - 8 hr 04/14/22 04:43 04/14/22 06:25 04/14/22 06:24 Temperature 97.8 F Pulse Rate 78 54 L 54 L Respiratory Rate 16 14 Blood Pressure 91/56 L 106/55 L Pulse Oximetry 97 96 Oxygen Delivery Method Room Air Oxygen Flow Rate 04/14/22 06:41 04/14/22 06:42 04/14/22 06:42 Temperature Pulse Rate 58 L 58 L Respiratory Rate 19 15 Blood Pressure 97/56 L Pulse Oximetry 98 98 Oxygen Delivery Method Oxygen Flow Rate 04/14/22 07:00 04/14/22 07:30 04/14/22 08:35 Temperature Pulse Rate 57 L 55 L 65 Respiratory Rate 23 20 Blood Pressure Pulse Oximetry 98 99 85 L Oxygen Delivery Method Room Air Oxygen Flow Rate 04/14/22 08:38 04/14/22 08:38 04/14/22 09:00 Temperature Pulse Rate 63 Respiratory Rate 12 Blood Pressure 111/66 120/66 Pulse Oximetry 98 Oxygen Delivery Method Nasal Cannula Oxygen Flow Rate 2 04/14/22 09:00 Temperature Pulse Rate 66 Respiratory Rate 14 Blood Pressure Pulse Oximetry 96 Oxygen Delivery Method Oxygen Flow Rate MDM - Chest Pain <Thomas Galeas DO - Last Filed: 04/15/22 06:45> Lab Data Result diagrams: 04/14/22 05:08 04/14/22 05:08 Labs: Lab Results 04/14/22 04/14/22 04/14/22 Range/Units 05:08 05:08 05:08 WBC 8.8 (4.5-11.0) X10^3/uL RBC 2.83 L (4.5-5.9) X10^6/uL Hgb 9.8 L (13.5-17.5) g/dL Hct 28.9 L (41-53) % MCV 101.9 H (80-100) fL MCH 34.5 H (26-34) PG MCHC 33.9 (30-36) % RDW 13.4 (11.6-14.8) % Plt Count 161 (150-400) X10^3/uL Neut % (Auto) 81.4 H (50-75) % Lymph % (Auto) 6.1 L (25-40) % Mccormick % (Auto) 10.5 (3-14) % Eos % (Auto) 1.5 L (2-4) % Baso % (Auto) 0.5 (0-2) % Neut # (Auto) 7100 H (4049-2141) /uL Lymph # (Auto) 500 L (9857-7605) /uL Mccormick # (Auto) 900 (0-900) /uL Eos # (Auto) 100 (0-450) /uL Baso # (Auto) 0 (0-100) /uL PT 15.8 H (10.1-12.7) SECONDS INR 1.4 H (0.9-1.3) APTT 35 (26.4-36.2) SECONDS Sodium 131 L (137-145) mmol/L Potassium 4.1 (3.4-5.1) mmol/L Chloride 102 (98-107) mmol/L Carbon Dioxide 24 (22-32) mmol/L BUN 23 H (9-20) mg/dL Creatinine 0.75 (0.66-1.25) mg/dL Estimated GFR > 60 (>60) mL/min BUN/Creatinine Ratio 30.7 H (6-22) Glucose 111 H (80-110) mg/dL Calcium 9.2 (8.4-10.2) mg/dL Total Bilirubin 0.4 (0.2-1.3) mg/dL AST 40 (17-59) IU/L ALT 14 (<50) IU/L Alkaline Phosphatase 101 (38-126) U/L Total Creatine Kinase 32 L (55-170) U/L CK-MB (CK-2) TNP CK-MB (CK-2) Rel Index TNP Troponin I < 0.012 (0.01-0.034) ng/mL NT-Pro-B Natriuret Pep 248 (<450) pg/mL Total Protein 7.7 (6.3-8.2) g/dL Albumin 3.7 (3.5-5.0) g/dL Globulin 4.0 (1.7-4.1) g/dL Albumin/Globulin Ratio 0.9 L (1.0-2.8) Lipase 100 (23-300) U/L Procalcitonin 0.12 (<0.5) ng/mL Urine Dip Bedside Urine Glucose Negative Bedside Urine Bilirubin - Negative Bedside Urine Ketone - Negative Urine Specific [place] 1.01 Bedside Urine Occult Blood - Negative Bedside Urine pH 6.5 Bedside Urine Protein - Negative Bedside Urine Urobilinogen - Negative Bedside Urine Nitrite - Negative Bedside Urine Leukocytes - Negative Esterase <Aleena Portillo, DO - Last Filed: 04/14/22 19:01> Lab Data Labs: Lab Results 04/14/22 04/14/22 04/14/22 Range/Units 05:08 05:08 05:08 WBC 8.8 (4.5-11.0) X10^3/uL RBC 2.83 L (4.5-5.9) X10^6/uL Hgb 9.8 L (13.5-17.5) g/dL Hct 28.9 L (41-53) % MCV 101.9 H (80-100) fL MCH 34.5 H (26-34) PG MCHC 33.9 (30-36) % RDW 13.4 (11.6-14.8) % Plt Count 161 (150-400) X10^3/uL Neut % (Auto) 81.4 H (50-75) % Lymph % (Auto) 6.1 L (25-40) % Mccormick % (Auto) 10.5 (3-14) % Eos % (Auto) 1.5 L (2-4) % Baso % (Auto) 0.5 (0-2) % Neut # (Auto) 7100 H (1651-1329) /uL Lymph # (Auto) 500 L (7389-2016) /uL Mccormick # (Auto) 900 (0-900) /uL Eos # (Auto) 100 (0-450) /uL Baso # (Auto) 0 (0-100) /uL PT 15.8 H (10.1-12.7) SECONDS INR 1.4 H (0.9-1.3) APTT 35 (26.4-36.2) SECONDS Sodium 131 L (137-145) mmol/L Potassium 4.1 (3.4-5.1) mmol/L Chloride 102 (98-107) mmol/L Carbon Dioxide 24 (22-32) mmol/L BUN 23 H (9-20) mg/dL Creatinine 0.75 (0.66-1.25) mg/dL Estimated GFR > 60 (>60) mL/min BUN/Creatinine Ratio 30.7 H (6-22) Glucose 111 H (80-110) mg/dL Calcium 9.2 (8.4-10.2) mg/dL Total Bilirubin 0.4 (0.2-1.3) mg/dL AST 40 (17-59) IU/L ALT 14 (<50) IU/L Alkaline Phosphatase 101 (38-126) U/L Total Creatine Kinase 32 L (55-170) U/L CK-MB (CK-2) TNP CK-MB (CK-2) Rel Index TNP Troponin I < 0.012 (0.01-0.034) ng/mL NT-Pro-B Natriuret Pep 248 (<450) pg/mL Total Protein 7.7 (6.3-8.2) g/dL Albumin 3.7 (3.5-5.0) g/dL Globulin 4.0 (1.7-4.1) g/dL Albumin/Globulin Ratio 0.9 L (1.0-2.8) Lipase 100 (23-300) U/L Procalcitonin 0.12 (<0.5) ng/mL Urine Dip Bedside Urine Glucose Negative Bedside Urine Bilirubin - Negative Bedside Urine Ketone - Negative Urine Specific [place] 1.01 Bedside Urine Occult Blood - Negative Bedside Urine pH 6.5 Bedside Urine Protein - Negative Bedside Urine Urobilinogen - Negative Bedside Urine Nitrite - Negative Bedside Urine Leukocytes - Negative Esterase Imaging Data CT scan - abdomen/pelvis: Radiologist's Impression: Preliminary report abdominal and retroperitoneal adenopathy. Low-density hepatic masses. Findings are most consistent with metastatic disease. Retroperitoneal adenopathy is associated with marked to 10 UA lorenzo of renal veins at the level of the confluence with the inferior vena cava. In addition there is diminished enhancement of vessel lumen at this location and possible presence of tumor thrombus or vascular invasion is not excluded To. Bilateral nonobstructing renal calculi. Left hydronephrosis and hydroureter without evidence of obstructing calculus. Findings may represent residual dilation from previous obstruction or may be related to a lesion at the left ureterovesicular junction. Further assessment with cystoscopy and retrograde pyelogram may be considered as clinically warranted CT scan - chest: Radiologist's Impression: Preliminary report small left-sided pulmonary nodules with outlined above there is evidence of prior granulomatous disease and it is possible that these are represent noncalcified granulomas. However given history of carcinoma correlation with remote imaging is recommended to assess for their stability. Alternatively a short-term follow-up exam may be considered in 3 months time to assess for stability of these nodules. 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 It MDM Narrative Medical decision making narrative: Patient signed out to me by Dr. Galeas. I seen evaluated patient myself. Awake alert very pleasant gentleman. States that he has had fatigue ongoing for the last 1 month. He typically plays golf 3 times a week but has been unable to do so due to extreme fatigue. He has lost 41 lb over last couple of months however he was started on a pulmonary fibrosis medication which did suppresses appetite. That medication was stopped about 2-3 weeks ago. He has a sense of impending doom every time he goes to sleep his. He is afraid that he will not wake up in the morning he thinks something is severely wrong with his body. He says he is dizzy every time he stands up and sits up and starts moving. Eventually does get better but he has positional his dizziness. He initially was noted to be hypotensive blood pressure 91/56 which has now stabilized after some fluid. States that he also took a metoprolol medication which she has not been taking his his blood pressure was low. CT shows hepatic masses consistent with metastatic disease with retroperitoneal adenopathy. There is moderate mass effect upon inferior vena cava near the junction of the renal vein. This may also be causing his dizziness and hypotension. Patient states he has remote history of bladder cancer 10-12 years ago but no other cancer that he is aware of. [id number]-Dr. Patricio Discussion with general surgery about regards if this could be causing his hypotension. He was under at the time recommended patient ambulate and monitor vitals. Patient is given IV fluid he ambulated in the ED without any difficulty discussion with him not to take his blood pressure medication. Attempted to call Oncology for close follow-up however they required a PCP referral. Attempted to get in touch with his PCP or 1 of his partners but were unsuccessful. I have sent a note to his PCP regards to follow up an needing oncology referral Discharge Plan Departure Patient Disposition: Home Clinical Impression: Liver mass Instructions: DI for Liver Cancer, DI for Lung Cancer Activity Restrictions/Additional Instructions: *You have been diagnosed with liver masses *What to do: Your workup in the emergency department is concerning for cancer. You will need further workup and oncology referral. Dr. Montes has been notified to put in a referral for you. This may be causing some of your symptoms. *Continue to take medications as directed Do not take your blood pressure medication *Follow up with your primary care provider in 2-3 days or call [phone] *Return to ER if you should have increasing dizziness, passing out, shortness of breath chest pain abdominal pain nausea vomiting or any new, worsening or concerning symptoms Prescriptions: No Action atorvastatin 40 mg tablet 40 mg PO DAILY (DME) Disabled Parking Pass Qty: 1 0RF Dose Instruction: As directed Rx Instructions: As directed aspirin 81 MG tablet,chewable 81 mg PO QDAY Qty: 0 metoprolol tartrate [Lopressor] 50 MG tablet 25 mg PO BID Qty: 0 (DME) compound cream as below See Rx Instructions .Route .MEDSUPPLY Qty: 180 5RF Dose Instruction: APPLY 1 TO 2 PUMPS ( 1 TO 2 GRAMS) TOPICALLY UP TO 3 TIMES A DAY IF NEEDED FOR PAIN Rx Instructions: APPLY 1 TO 2 PUMPS ( 1 TO 2 GRAMS) TOPICALLY UP TO 3 TIMES A DAY IF NEEDED FOR PAIN, ok to make without cetyl myristoleate (09/11/2020). lisinopril 5 mg tablet 2.5 mg PO DAILY Qty: 0 Hold Instructions: hypotension sulfamethoxazole-trimethoprim 800-160 mg tablet 1 tab PO BID Qty: 14 0RF albuterol sulfate 90 mcg/actuation HFA aerosol inhaler See Rx Instructions .ROUTE .COMPLEX Qty: 54 3RF Dose Instruction: INHALE 2 PUFFS BY MOUTH EVERY 6 HOURS NEEDED FOR SHORTNESS OF BREATH OR WHEEZING Rx Instructions: INHALE 2 PUFFS BY MOUTH EVERY 6 HOURS NEEDED FOR SHORTNESS OF BREATH OR WHEEZING buprenorphine 20 mcg/hour patch weekly 1 patch transdermal QWEEK Qty: 4 5RF Rx Instructions: PA approved 10/19/21-10/18/22 fluticasone propion-salmeterol 250-50 mcg/dose blister with device See Rx Instructions .ROUTE .COMPLEX Qty: 180 2RF Dose Instruction: INHALE 1 PUFF TWICE DAILY Rx Instructions: INHALE 1 PUFF TWICE DAILY nitroglycerin [Nitrostat] 0.4 mg tablet, sublingual 0.4 mg SL Q5-15M PRN CMP KCCDGT 12//2/3/6/2% See Rx Instructions .ROUTE .COMPLEX Qty: 200 0RF Dose Instruction: APPLY 1 TO 2 PUMPS ( 1 TO 2 GRAMS) TOPICALLY UP TO 3 TIMES A DAY IF NEEDED FOR PAIN Rx Instructions: APPLY 1 TO 2 PUMPS ( 1 TO 2 GRAMS) TOPICALLY UP TO 3 TIMES A DAY IF NEEDED FOR PAIN CMP KCCDGT 12//2/3/6/2% See Rx Instructions .ROUTE .COMPLEX Qty: 200 0RF Dose Instruction: APPLY 1 TO 2 PUMPS ( 1 TO 2 GRAMS) TOPICALLY UP TO 3 TIMES A DAY IF NEEDED FOR PAIN Rx Instructions: APPLY 1 TO 2 PUMPS ( 1 TO 2 GRAMS) TOPICALLY UP TO 3 TIMES A DAY IF NEEDED FOR PAIN acetazolamide 250 mg tablet 250 mg PO BID Qty: 60 1RF meclizine 25 mg tablet 25 mg PO DAILY PRN (Reason: dizziness) Qty: 90 3RF methocarbamol 500 mg tablet 1,500 mg PO TID Qty: 90 5RF Rx Instructions: Take as prescribed for three days, then two days off, continue to alternate as needed in this pattern hydrocodone-acetaminophen 5-325 mg tablet See Rx Instructions PO Q4-6H PRN (Reason: pain) Qty: 300 0RF Rx Instructions: take 1-2 tablets, PO every 4-6 hours PRN; ondansetron 4 mg tablet,disintegrating See Rx Instructions PO .COMPLEX PRN (Reason: nausea and vomiting) Qty: 90 3RF Rx Instructions: take 15 minutes before eating up to three times a day ibuprofen 600 mg tablet See Rx Instructions .ROUTE .COMPLEX Qty: 270 0RF Dose Instruction: TAKE 1 TABLET EVERY 8 HOURS NEEDED FOR PAIN Rx Instructions: TAKE 1 TABLET EVERY 8 HOURS NEEDED FOR PAIN clonazepam 0.25 mg tablet,disintegrating 0.25 mg PO DAILY Qty: 20 0RF levalbuterol tartrate 45 mcg/actuation HFA aerosol inhaler 2 puff inhalation Q4-6H PRN (Reason: shortness of breath) Qty: 15 12RF Referrals: Shiva Tirado DO [Primary Care Provider] - Visit Report Forms: Patient Portal/API
--- NOTE | 2022-04-14 04:42 | DI.RAD.S_ITS ---
PROCEDURE: XR CHEST 1V INDICATIONS: dizzy, weak TECHNIQUE: One view of the chest was acquired. COMPARISON: [facility], CR, XR CHEST 1V, 06/10/2020, 9:13. FINDINGS: Surgical changes and devices: Median sternotomy wires are present and appear intact. Lungs and pleura: Lungs are clear. No pleural effusions or pneumothorax. Stable changes of hyperaeration and findings compatible with chronic obstructive pulmonary physiology. No focal consolidations. Mediastinum: Cardiomediastinal contours remain stable. There is lobular appearance of the perihilar region which may be related to adenopathy versus aneurysmal dilatation of the thoracic aorta. Bones and chest wall: No suspicious bony lesions. Overlying soft tissues appear unremarkable. IMPRESSION: 1. Persistent findings compatible with chronic obstructive pulmonary physiology. No focal airspace disease. 2. Abnormal, but relatively stable cardiomediastinal contours with lobular appearance involving the perihilar region. This may be related to hilar adenopathy versus aneurysmal dilatation of the thoracic aorta. Consider further evaluation with CT of the chest. No significant discrepancy with the night stocker radiology preliminary report. Dictated by: Luis Eduardo Reynaga M.D. on 04/14/2022 at 7:44 Approved by: Luis Eduardo Reynaga M.D. on 04/14/2022 at 7:58
[2022-04-14] MEDS: SODIUM CHLORIDE 0.9% 1,000 ML 150 ML IV (05:15)
[2022-04-14 05:20] LABS: Add Manual Diff / Slide Review NO; Basophils Absolute Auto 0 /uL (0-100); Basophils Percent Auto 0.5 % (0-2); Eosinophils Absolute Auto 100 /uL (0-450); Eosinophils Percent Auto 1.5 % (2-4); Hematocrit 28.9 % (41-53); Hemoglobin 9.8 g/dL (13.5-17.5); Lymphocytes Absolute Auto 500 /uL (1100-4500); Lymphocytes Percent Auto 6.1 % (25-40); Mean Corpuscular HGB Conc 33.9 % (30-36); Mean Corpuscular Hemoglobin 34.5 PG (26-34); Mean Corpuscular Volume 101.9 fL (80-100); Monocytes Absolute Auto 900 /uL (0-900); Monocytes Percent Auto 10.5 % (3-14); Neutrophils Absolute Auto 7100 /uL (1500-7000); Neutrophils Percent Auto 81.4 % (50-75); Platelet Count 161 X10^3/uL (150-400); Red Blood Cell Count 2.83 X10^6/uL (4.5-5.9); Red Cell Distribution Width 13.4 % (11.6-14.8); White Blood Cell Count 8.8 X10^3/uL (4.5-11.0)
[2022-04-14 05:23] LABS: INR 1.4 (0.9-1.3); Prothrombin Time 15.8 SECONDS (10.1-12.7)
[2022-04-14 05:25] LABS: PTT Partial Thromboplastin Tim 35 SECONDS (26.4-36.2)
[2022-04-14 05:33] LABS: Alanine Aminotransferase 14 IU/L (<50); Albumin 3.7 g/dL (3.5-5.0); Albumin Globulin Ratio 0.9 (1.0-2.8); Alkaline Phosphatase 101 U/L (38-126); Aspartate Aminotransferase 40 IU/L (17-59); BUN Creatinine Ratio 30.7 (6-22); Bilirubin Total 0.4 mg/dL (0.2-1.3); Blood Urea Nitrogen 23 mg/dL (9-20); Calcium 9.2 mg/dL (8.4-10.2); Carbon Dioxide 24 mmol/L (22-32); Chloride 102 mmol/L (98-107); Creatine Kinase 32 U/L (55-170); Estimated Glomerular Filt Rate > 60 mL/min (>60); Glucose 111 mg/dL (80-110); HEMOLYSIS < 15 (0-50); Lipase 100 U/L (23-300); Potassium 4.1 mmol/L (3.4-5.1); Sodium 131 mmol/L (137-145); Total Protein 7.7 g/dL (6.3-8.2)
[2022-04-14 05:46] LABS: NT-proBNP (BNP-Adult 18+) 248 pg/mL (<450); Troponin I < 0.012 ng/mL (0.01-0.034)
[2022-04-14 05:50] LABS: Procalcitonin 0.12 ng/mL (<0.5)
--- NOTE | 2022-04-14 06:12 | DI.CT.S_ITS ---
PROCEDURE: CT CHEST ABD PEL W CON INDICATIONS: weakness, fatigue, abnormal CXR, weight loss TECHNIQUE: After the administration of intravenous contrast, 5 mm thick sections acquired from the lung apices to the symphysis. 5 mm coronal and sagittal reformats were performed, with additional 7 mm MIP reformats through the lungs. For radiation dose reduction, the following was used: automated exposure control, adjustment of mA and/or kV according to patient size. COMPARISON: [facility], CT, CT HIGH RESOLUTION CHEST, 02/11/2021, 13:22. FINDINGS: Image quality: Excellent. CHEST: Lungs and pleura: Redemonstration of bilateral subpleural reticular opacities and bibasilar scarring. Mild peripheral traction bronchiectasis is again noted. Multiple small 3-4 mm pulmonary nodules are again noted and likely representing granulomas. There is a new superior left upper lobe nodule measuring approximately 6 mm in size (image 168/series 3). Stable changes of pulmonary emphysema. No pleural effusions or pneumothorax. Central and peripheral airways appear patent and normal in caliber. Patchy peripheral airspace opacities likely representing atelectasis. Most prominent is again noted in the inferior, lateral aspect of the left upper lobe near the lingula. Mediastinum: Heart size is normal. No pericardial effusion. No mediastinal or hilar adenopathy by size criteria. Thoracic aorta and central pulmonary arteries are enlarged. There is moderate ectasia of the ascending thoracic aorta measuring up to 4.5 cm in maximum dimension. Mild descending thoracic aortic aneurysmal dilatation measuring approximately 5.1 cm in diameter. Extensive atherosclerotic calcifications of the thoracic aorta and coronary arteries. Main pulmonary artery measures approximately 3.6 cm in maximum dimension. No CT evidence for acute right-sided heart strain. Esophagus is normal in caliber. No hiatal hernia. Chest wall: No axillary or supraclavicular adenopathy by size criteria. Thyroid gland is unremarkable . Mild bilateral gynecomastia. Multiple median sternotomy wires are in place. No substernal fluid collection seen. Partially imaged cervical spine fusion hardware. ABDOMEN: Solid organs: Liver is normal in size and enhancement. Interval development of multiple new scattered hepatic hypodensities with the largest measuring approximately 4.1 x 4.2 cm (image 60/series 2) within the lateral segment of the left hepatic lobe. It is somewhat expansile in appearance. There is heterogeneous enhancement. Similar appearing lesion is noted in the posterior, inferior aspect of the right hepatic lobe measuring approximately 2.8 x 3.3 cm (image 67/series 2). Gallbladder contains tiny punctate densities in the dependent portions of the gallbladder body without wall thickening or pericholecystic inflammation . Biliary system is non dilated. Pancreas enhances normally. Spleen is normal in size and enhancement. No adrenal nodules. There are a few tiny punctate bilateral renal stones. No perinephric stranding. Scattered right renal hypodensities which are incompletely characterized but likely represent renal cysts. No right-sided hydronephrosis. Right ureter is normal in course and caliber. There is mild hydronephrosis of the left kidney with moderate left hydroureter. No periureteral stranding. No ureteral stone or suspicious soft tissue lesion along its visualized course. Peritoneum and bowel: Bowel loops demonstrate normal wall thickness and caliber. No free fluid or air. Scattered colonic diverticulosis without evidence for acute diverticulitis. No evidence for bowel obstruction. Nodes and vessels: There are numerous scattered enlarged mesenteric lymph nodes measuring up to 2.3 x 1.7 cm in size within the left abdomen (image 81/series 2). There are also innumerable multi lobular retroperitoneal lymph nodes, many of which represent angelina conglomeration. These areas of adenopathy are noted in the periportal region which appears to surround segments of the portal vein with minimal mass effect. Angelina masses also surround the abdominal aorta without significant mass effect. There is however, moderate mass effect upon the inferior vena cava near the junction of the renal veins with resultant decreased opacification of the IVC distally as well as the iliac veins. Definite intraluminal mass not noted within the IVC. Extensive atherosclerotic calcifications of the abdominal aorta and iliac vessels. There is mild aneurysmal dilatation of the infrarenal abdominal aorta measuring approximately 3.3 x 3.3 cm (image 76/series 2). Miscellaneous: No ventral hernias. PELVIS: Genitourinary: Bladder wall thickness is normal. No suspicious areas of asymmetric wall thickening. No perivesicular inflammation. There are apparent varicoceles noted in the visualized portions of the left upper scrotum and left inguinal canal. Miscellaneous: No inguinal hernias or adenopathy. Bones: No suspicious bony lesions. No acute vertebral body compression fractures. Chronic appearing anterior compression deformities of L2 and L3. Moderate multilevel spondylosis of the imaged spine most pronounced in the lumbar spine. IMPRESSION: 1. New 6 mm left upper lobe pulmonary nodule. Multiple stable subcentimeter pulmonary granulomas. Given reported history of remote bladder carcinoma, findings may represent possible metastatic disease versus new pulmonary granuloma. Recommend short interval follow-up CT in approximately 3 months to document stability. 2. Redemonstration of pulmonary emphysematous changes in findings compatible with mild pulmonary fibrosis. No acute airspace disease identified. 3. Abnormal mediastinal contours likely secondary to enlargement of the thoracic aorta and enlargement of the pulmonary arteries. No hilar adenopathy seen. 4. Extensive atherosclerosis noted in the coronary arteries and both the thoracic and abdominal aorta. There is mild descending thoracic aorta aneurysmal dilatation as well as mild infrarenal abdominal aortic aneurysmal dilatation. Continued clinical and imaging follow-up recommended. 5. Interval development of conglomerate adenopathy of the mesentery and retroperitoneum with large angelina mass visualized in the periportal region resulting in mild mass effect of the adjacent vasculature. There is similar adenopathy in the renal region with hypoattenuation/decreased opacification of the inferior vena cava distal to the confluence of the bilateral renal veins. This may be related to mass effect although tumor invasion or tumor thrombus cannot be excluded. Findings are suspicious for metastatic adenopathy. 6. Interval development of new hepatic masses suspicious for metastatic disease. 7. Bilateral punctate nephrolithiasis with mild left hydronephrosis and left hydroureter. No obstructing stone or mass lesion identified. No definite abnormalities noted in the urinary bladder. Consider further evaluation with urology consultation for cystoscopy or retrograde pyelography. 8. Multilevel spondylosis with chronic appearing anterior compression deformities at L2 and L3. 9. Colonic diverticulosis without acute diverticulitis. 10. Findings suggestive of tiny layering gallstones. No CT evidence for acute cholecystitis. 11. Suspected left-sided varicoceles. No significant discrepancy with the maintenance technician 3rd shift radiology preliminary report. Dictated by: Luis Eduardo Reynaga M.D. on 04/14/2022 at 8:37 Approved by: Luis Eduardo Reynaga M.D. on 04/14/2022 at 9:14
--- NOTE | 2022-04-14 08:16 | DI.CT.S_ITS ---
PROCEDURE: CT HEAD/BRAIN WO CON INDICATIONS: dizzy with new liver masses TECHNIQUE: Noncontrast 4.5 mm thick angled axial sections acquired from the foramen magnum to the vertex, with coronal and sagittal reformats. For radiation dose reduction, the following was used: automated exposure control, adjustment of mA and/or kV according to patient size. COMPARISON: [facility], CT, HEAD WITHOUT CONTRAST, 09/05/2013, 2:11. FINDINGS: Image quality: Excellent. CSF spaces: Basal cisterns are patent. No extra-axial fluid collections. The ventricles are symmetric in size and shape. Brain: No intracranial bleeds or masses. There is cerebral volume loss for age, with resultant ventricular and sulcal prominence. There are periventricular and deep white matter chronic small vessel ischemic changes. Stable dense calcification in the left frontal lobe. There is intracranial internal carotid artery and vertebral artery atherosclerosis. Skull and face: Calvarium and visualized facial bones appear intact, without suspicious lesions. Sinuses: Visualized sinuses and mastoids are clear. IMPRESSION: 1. No acute intracranial abnormalities. 2. Cerebral volume loss and chronic microvascular ischemic changes. Dictated by: Saran Branham M.D. on 04/14/2022 at 8:20 Approved by: Saran Branham M.D. on 04/14/2022 at 8:22
== END 2022-04-14 10:49 | disposition home or self-care (01) ==
PROVIDERS: Emergency Medicine; Emergency Provider Emergency Medicine; PCP Family Medicine
DX: R16.0 Hepatomegaly, not elsewhere classified (principal); I10 Essential (primary) hypertension; R53.1 Weakness
CPT/HCPCS: 36415; 70450; 71045; 71260; 74177; 80053; 81003; 82550; 83690; 83880; 84145; 84484; 85025; 85610; 85730; 93005; 96360; 96361; 99284; 99285

== ENCOUNTER → 2022-04-18 09:32 | Outpatient (CLI) | payer MEDICARE, OTHER, SELFPAY | PROVIDERS: PCP Family Medicine; Referring Provider Family Medicine; Visit Provider Family Medicine | DX: S91.301A Unspecified open wound, right foot, initial encounter (principal); L92.8 Other granulomatous disorders of the skin and subcutaneous tissue | CPT/HCPCS: 99213 ==

== ENCOUNTER 2022-04-21 17:23 | Emergency (ER) | payer MEDICARE, OTHER, SELFPAY ==
[2022-04-21 17:34] VITALS: BP 116/62; PULSE 101; RESP 20; TEMP 36.6; O2SAT 96; BMI 21.1
--- NOTE | 2022-04-21 17:45 | ED.DIZZY ---
HPI - Dizziness General Chief Complaint: Dizziness Stated Complaint: HIGH BP, CONSTIPATED, HX CA, DIZZY Time Seen by Provider: 04/21/22 17:44 Source: patient Mode of arrival: Wheelchair History of Present Illness HPI Narrative: 81-year-old male former smoker with known bladder cancer, HTN, CAD, recently diagnosed liver CA with mets to the lungs presents with multiple complaints including no BMs in the past week, trouble urinating and elevated BP. He states when he was at home his blood pressure was in the 190s which is the largest reason decided to come CS. By arrival was 116. He denies any headache, blurred vision or trouble with speech. He denies any chest pain but is feeling fatigued short of breath. He denies nausea but has had poor appetite. He has crampy, generalized abdominal pain and states that he strains to have a bowel movement but has been unsuccessful. He has taken 3 gentle laxatives yesterday and 2 today without any success. Furthermore, he frequently has the sensation that he must urinate but is unable to produce any urine. He has had no fever or chills and denies any new medications Related Data Home Medications Medication Instructions Recorded Confirmed aspirin 81 mg chewable tablet 81 mg PO QDAY ##0 08/28/12 04/17/22 atorvastatin 40 mg tablet 40 mg PO DAILY 07/29/18 04/17/22 nitroglycerin 0.4 mg sublingual 0.4 mg sublingual Q5-15M PRN Chest 03/16/19 04/17/22 tablet (Nitrostat) Pain Previous Rx's Medication Instructions Recorded Disabled Parking Pass #1 ea 09/29/18 [facility] 09/18////2% See Rx Instructions .Route 08/31/20 .COMPLEX #200 ea [facility] 09/18/2/3/6/2% See Rx Instructions .Route 08/31/20 .COMPLEX #200 ea compound cream as below #180 grams 09/12/20 ibuprofen 600 mg tablet See Rx Instructions .Route 09/12/20 .COMPLEX #270 tabs clonazepam 0.25 mg disintegrating 0.25 mg PO DAILY #20 tabs 11/28/20 tablet acetazolamide 250 mg tablet 250 mg PO BID #60 tabs 12/06/20 levalbuterol tartrate 45 2 puff inhalation Q4-6H PRN 02/05/21 mcg/actuation aerosol inhaler shortness of breath #15 grams meclizine 25 mg tablet 25 mg PO DAILY PRN dizziness #90 05/15/21 tabs albuterol sulfate 90 mcg/actuation See Rx Instructions .Route 12/30/21 aerosol inhaler .COMPLEX #54 grams methocarbamol 500 mg tablet 1,500 mg PO TID #90 tabs 02/13/22 buprenorphine 20 mcg/hour weekly 1 patch transdermal QWEEK #4 ea 03/30/22 transdermal patch hydrocodone 5 mg-acetaminophen 325 See Rx Instructions PO Q4-6H PRN 04/03/22 mg tablet pain #300 tabs ondansetron 4 mg disintegrating See Rx Instructions PO .COMPLEX 04/03/22 tablet PRN nausea and vomiting #90 tabs fluticasone 250 mcg-salmeterol 50 See Rx Instructions .Route 04/07/22 mcg/dose blistr powdr for .COMPLEX #180 blisters inhalation Allergies Allergy/AdvReac Type Severity Reaction Status Date / Time propoxyphene [From Darvon] Allergy Verified 04/21/22 17:34 nitrofurantoin AdvReac Intermediate Verified 04/21/22 17:34 Review of Systems Review of Systems Narrative: GENERAL: See HPI HEENT: Denies sinus pain, ear pain, sore throat, difficulty swallowing, dizziness. RESPIRATORY: See HPI CARDIOVASCULAR: Denies chest pain, palpitations, orthopnea, edema, GASTROINTESTINAL: See HPI : See HPI MUSCULOSKELETAL: denies weakness, joint pain, or bony pain SKIN: Denies rash, skin lesions, or other NEUROLOGIC: Denies weakness, headache, numbness, change in speech, confusion, seizures, incoordination. PSYCHIATRIC: No concerning psychosocial issues. 12 point review of systems is negative except for those stated above Patient History Medical History Atrial fibrillation (~1993) Bilateral lower extremity edema Bladder cancer BPH (benign prostatic hyperplasia) Cervical somatic dysfunction Cervical spine disease Chronic neck pain Chronic, continuous use of opioids Coordination of complex care Coronary artery disease Counseling regarding advanced care planning and goals of care Counseling regarding end of life decision making Excessive cerumen in both ear canals Flushing GERD (gastroesophageal reflux disease) Hypertension Hypotension Idiopathic pulmonary fibrosis Iliotibial band syndrome, right leg Increased frequency of urination Increasing shortness of breath Macrocytosis Malaise and fatigue Menieres disease Muscular deconditioning Myocardial infarction (1978) Nausea Nausea alone Night sweats Pelvic somatic dysfunction Rib pain on left side Segmental and somatic dysfunction of abdomen and other regions Segmental and somatic dysfunction of lower extremity Segmental and somatic dysfunction of lumbar region Segmental and somatic dysfunction of rib cage Segmental and somatic dysfunction of sacral region Segmental and somatic dysfunction of thoracic region Somatic dysfunction of lower extremity Thoracic aortic aneurysm Tremor Wound, open, foot Surgical History History of abdominal aortic aneurysm repair (~2006) Hx of cervical discectomy Hx of coronary artery bypass graft (~1980) Hx of laminectomy (~04/2016) Hx of transurethral resection of prostate S/P carotid endarterectomy (~1990) Family History Father No problems noted. Mother No problems noted. Social History Smoking Status: Former smoker Tobacco: How many years used: 19 second hand exposure: No alcohol intake: never substance use type: does not use Smoking Status: Former smoker alcohol intake frequency: holidays/special occasions only Substance Use Type: does not use Exam Narrative Exam Narrative: GENERAL: [81] year old patient appears stated age. Well-developed patient, in mild distress. HEAD: Atraumatic. Normocephalic. EYES: Pupils equal round and reactive. Extraocular motions intact. No scleral icterus. No injection or drainage. ENT: Nose without bleeding, purulent drainage. Throat without erythema, tonsillar hypertrophy or exudate. Airway patent. NECK: Trachea midline. Non tender CARDIOVASCULAR: Regular rate and rhythm without murmurs, gallops, or rubs. RESPIRATORY: Clear to auscultation. Breath sounds equal bilaterally. No wheezes, rales, or rhonchi. GASTROINTESTINAL: Abdomen soft, non-tender, nondistended. EXTREMITIES: No edema or joint tenderness. BACK: Nontender without deformity or crepitance. No flank tenderness. NEURO: AOx3. SKIN: No rash or erythema of visible areas Initial Vital Signs Initial Vital Signs: Vital Signs Temperature 97.9 F 04/21/22 17:34 Pulse Rate 101 H 04/21/22 17:34 Respiratory Rate 20 04/21/22 17:34 Blood Pressure 116/62 04/21/22 17:34 Pulse Oximetry 96 04/21/22 17:34 Oxygen Delivery Method 04/21/22 17:34 Course Orders Ordered: ED Orders 04/21/22 17:46 XR acute abdomen series Stat EKG-12 Lead Stat 04/21/22 18:05 Complete Blood Count AUTO DIFF Stat Comprehensive Metabolic Panel Stat Procalcitonin Stat Troponin & CK Cardiac Panel Stat Discontinued Medications Bisacodyl (Bisacodyl 10 Mg Supp) 10 mg OH NOW ONE Stop: 04/21/22 17:58 Last Admin: 04/21/22 18:53 Dose: 10 mg Documented By: MLM Sodium Chloride (Normal Saline 0.9%) 1,000 mls @ 150 mls/hr IV CONT JUAN Last Infusion: 04/21/22 21:22 Dose: 0 mls/hr Documented By: Admin: 04/21/22 19:07 Dose: 150 mls/hr Documented By: MLM Lidocaine HCl (Lidocaine 2% (Glydo) 6 Ml Gel) 6 ml TOP NOW ONE Stop: 04/21/22 18:52 Last Admin: 04/21/22 18:53 Dose: 6 ml Documented By: MLM Reevaluation(s) Reevaluation #1: Patient demonstrated about 50 cc of postvoid residual on bedside bladder scan, Ventura catheter placed and 2-300 cc urine out. Patient then given Dulcolax suppository with and for some time eventually passed a small amount of very firm stool with some improvement in symptoms. Pain is well controlled, abdomen is soft and he is tolerating orals. Extensive return precautions given and questions answered to his apparent satisfaction Vital Signs Vital signs: Vital Signs - 8 hr 04/21/22 17:34 04/21/22 17:58 04/21/22 18:00 Temperature 97.9 F Pulse Rate 101 H 91 H 91 H Respiratory Rate 20 Blood Pressure 116/62 Pulse Oximetry 96 97 96 Oxygen Delivery Method Room Air 04/21/22 19:05 04/21/22 19:06 04/21/22 19:06 Temperature Pulse Rate 83 84 Respiratory Rate Blood Pressure 111/56 L Pulse Oximetry 96 96 Oxygen Delivery Method 04/21/22 19:41 Temperature Pulse Rate 94 H Respiratory Rate Blood Pressure Pulse Oximetry 94 Oxygen Delivery Method MDM - Dizziness Lab Data Result diagrams: 04/21/22 18:05 04/21/22 18:05 Labs: Lab Results 04/21/22 04/21/22 Range/Units 18:05 18:05 WBC 8.8 (4.5-11.0) X10^3/uL RBC 2.98 L (4.5-5.9) X10^6/uL Hgb 10.3 L (13.5-17.5) g/dL Hct 30.1 L (41-53) % MCV 100.9 H (80-100) fL MCH 34.5 H (26-34) PG MCHC 34.2 (30-36) % RDW 13.9 (11.6-14.8) % Plt Count 296 (150-400) X10^3/uL Neut % (Auto) 81.4 H (50-75) % Lymph % (Auto) 7.4 L (25-40) % [place] % (Auto) 9.2 (3-14) % Eos % (Auto) 1.6 L (2-4) % Baso % (Auto) 0.4 (0-2) % Neut # (Auto) 7100 H (3536-1320) /uL Lymph # (Auto) 600 L (2880-2815) /uL [place] # (Auto) 800 (0-900) /uL Eos # (Auto) 100 (0-450) /uL Baso # (Auto) 0 (0-100) /uL Sodium 133 L (137-145) mmol/L Potassium 4.0 (3.4-5.1) mmol/L Chloride 103 (98-107) mmol/L Carbon Dioxide 20 L (22-32) mmol/L BUN 26 H (9-20) mg/dL Creatinine 0.76 (0.66-1.25) mg/dL Estimated GFR > 60 (>60) mL/min BUN/Creatinine Ratio 34.2 H (6-22) Glucose 100 (80-110) mg/dL Calcium 9.2 (8.4-10.2) mg/dL Total Bilirubin 0.6 (0.2-1.3) mg/dL AST 47 (17-59) IU/L ALT 16 (<50) IU/L Alkaline Phosphatase 108 (38-126) U/L Total Creatine Kinase 47 L (55-170) U/L CK-MB (CK-2) TNP CK-MB (CK-2) Rel Index TNP Troponin I < 0.012 (0.01-0.034) ng/mL Total Protein 8.4 H (6.3-8.2) g/dL Albumin 3.9 (3.5-5.0) g/dL Globulin 4.5 H (1.7-4.1) g/dL Albumin/Globulin Ratio 0.9 L (1.0-2.8) Procalcitonin 0.11 (<0.5) ng/mL Imaging Data Abdominal x-ray: Radiologist's Impression: [address] [address] XRay Report Signed Patient: Maged Avitia Jr MR#: [id number] : 1940 Acct:[id number] Age/Sex: 81 / M Date of Service: 04/21/22 Loc: ED Accession Number: [id number] ?? Procedure: XR acute abdomen series Ordering Provider: Thomas Galeas D.O. PROCEDURE:? XR ACUTE ABDOMEN SERIES ? INDICATIONS:? no BM ? TECHNIQUE:? One view chest and two views of the abdomen were acquired.? ? COMPARISON:? None. ? FINDINGS:? ? Surgical changes and devices:? Median sternotomy wires and surgical clips are seen.? Fusion hardware in lower cervical spine is also noted. ? Chest:? Lungs are clear.? tortuous thoracic aorta No pl and aortic arch calcifications are seen.? Heart size is enlarged.? eural effusions.? No pneumoperitoneum.? ? Abdomen:? Bowel gas pattern is nonobstructive.? Large amount of fecal matter throughout the colon is seen extending to rectum.? No gross peritoneal free air.? No suspicious calcifications.? Visualized solid organ contours appear normal.? ? Bones:? No suspicious bony lesions.? ? IMPRESSION:? Finding is suggestive of moderate to severe obstipation.? No gross free air. ?No acute cardiopulmonary pathology.? ? Dictated by: Sam Shah M.D. on 04/21/2022 at 18:47 ? ? Approved by: Sam Shah M.D. on 04/21/2022 at 18:51 ? Discharge Plan Departure Patient Disposition: Home Clinical Impression: Constipation, Acute urinary retention Instructions: DI for Constipation, DI for Urinary Retention in Men Activity Restrictions/Additional Instructions: *You have been diagnosed with [ abdominal pain due to constipation and urinary retention *What to do: *Take over the counter medications as directed: 1. Metamucil - bulk forming laxative adds fiber 2. Colace - softens your stool 3. Dulcolax Suppository - stimulates your bowels from the bottom *Follow up with Urology in 2-3 days, call for appointment. You had a postvoid residual of about 50 mL of urine in after a Ventura catheter was placed had about 200 cc of urine out. This should help get your bowels moving as well *Return to ER if you should have any new, worsening or concerning symptoms *Drink plenty of water and eat foods high in fiber *Try to be as active as possible, consider walking your dog daily Prescriptions: No Action atorvastatin 40 mg tablet 40 mg PO DAILY (DME) Disabled Parking Pass Qty: 1 0RF Dose Instruction: As directed Rx Instructions: As directed aspirin 81 MG tablet,chewable 81 mg PO QDAY Qty: 0 (DME) compound cream as below See Rx Instructions .Route .MEDSUPPLY Qty: 180 5RF Dose Instruction: APPLY 1 TO 2 PUMPS ( 1 TO 2 GRAMS) TOPICALLY UP TO 3 TIMES A DAY IF NEEDED FOR PAIN Rx Instructions: APPLY 1 TO 2 PUMPS ( 1 TO 2 GRAMS) TOPICALLY UP TO 3 TIMES A DAY IF NEEDED FOR PAIN, ok to make without cetyl myristoleate (09/11/2020). albuterol sulfate 90 mcg/actuation HFA aerosol inhaler See Rx Instructions .ROUTE .COMPLEX Qty: 54 3RF Dose Instruction: INHALE 2 PUFFS BY MOUTH EVERY 6 HOURS NEEDED FOR SHORTNESS OF BREATH OR WHEEZING Rx Instructions: INHALE 2 PUFFS BY MOUTH EVERY 6 HOURS NEEDED FOR SHORTNESS OF BREATH OR WHEEZING buprenorphine 20 mcg/hour patch weekly 1 patch transdermal QWEEK Qty: 4 5RF Rx Instructions: PA approved 10/19/21-10/18/22 fluticasone propion-salmeterol 250-50 mcg/dose blister with device See Rx Instructions .ROUTE .COMPLEX Qty: 180 2RF Dose Instruction: INHALE 1 PUFF TWICE DAILY Rx Instructions: INHALE 1 PUFF TWICE DAILY nitroglycerin [Nitrostat] 0.4 mg tablet, sublingual 0.4 mg SL Q5-15M PRN (Reason: Chest Pain) CMP [facility] 12//2/3/6/2% See Rx Instructions .ROUTE .COMPLEX Qty: 200 0RF Dose Instruction: APPLY 1 TO 2 PUMPS ( 1 TO 2 GRAMS) TOPICALLY UP TO 3 TIMES A DAY IF NEEDED FOR PAIN Rx Instructions: APPLY 1 TO 2 PUMPS ( 1 TO 2 GRAMS) TOPICALLY UP TO 3 TIMES A DAY IF NEEDED FOR PAIN CMP [facility] 12//3/6/2% See Rx Instructions .ROUTE .COMPLEX Qty: 200 0RF Dose Instruction: APPLY 1 TO 2 PUMPS ( 1 TO 2 GRAMS) TOPICALLY UP TO 3 TIMES A DAY IF NEEDED FOR PAIN Rx Instructions: APPLY 1 TO 2 PUMPS ( 1 TO 2 GRAMS) TOPICALLY UP TO 3 TIMES A DAY IF NEEDED FOR PAIN acetazolamide 250 mg tablet 250 mg PO BID Qty: 60 1RF meclizine 25 mg tablet 25 mg PO DAILY PRN (Reason: dizziness) Qty: 90 3RF methocarbamol 500 mg tablet 1,500 mg PO TID Qty: 90 5RF Rx Instructions: Take as prescribed for three days, then two days off, continue to alternate as needed in this pattern hydrocodone-acetaminophen 5-325 mg tablet See Rx Instructions PO Q4-6H PRN (Reason: pain) Qty: 300 0RF Rx Instructions: take 1-2 tablets, PO every 4-6 hours PRN; ondansetron 4 mg tablet,disintegrating See Rx Instructions PO .COMPLEX PRN (Reason: nausea and vomiting) Qty: 90 3RF Rx Instructions: take 15 minutes before eating up to three times a day ibuprofen 600 mg tablet See Rx Instructions .ROUTE .COMPLEX Qty: 270 0RF Dose Instruction: TAKE 1 TABLET EVERY 8 HOURS NEEDED FOR PAIN Rx Instructions: TAKE 1 TABLET EVERY 8 HOURS NEEDED FOR PAIN clonazepam 0.25 mg tablet,disintegrating 0.25 mg PO DAILY Qty: 20 0RF levalbuterol tartrate 45 mcg/actuation HFA aerosol inhaler 2 puff inhalation Q4-6H PRN (Reason: shortness of breath) Qty: 15 12RF Referrals: Tessa Chou MD [Physician] - Shiva Tirado DO [Primary Care Provider] - Visit Report Forms: Patient Portal/API
--- NOTE | 2022-04-21 17:46 | DI.RAD.S_ITS ---
PROCEDURE: XR ACUTE ABDOMEN SERIES INDICATIONS: no BM TECHNIQUE: One view chest and two views of the abdomen were acquired. COMPARISON: None. FINDINGS: Surgical changes and devices: Median sternotomy wires and surgical clips are seen. Fusion hardware in lower cervical spine is also noted. Chest: Lungs are clear. tortuous thoracic aorta No pl and aortic arch calcifications are seen. Heart size is enlarged. eural effusions. No pneumoperitoneum. Abdomen: Bowel gas pattern is nonobstructive. Large amount of fecal matter throughout the colon is seen extending to rectum. No gross peritoneal free air. No suspicious calcifications. Visualized solid organ contours appear normal. Bones: No suspicious bony lesions. IMPRESSION: Finding is suggestive of moderate to severe obstipation. No gross free air. No acute cardiopulmonary pathology. Dictated by: Sam Shah M.D. on 04/21/2022 at 18:47 Approved by: Sam Shah M.D. on 04/21/2022 at 18:51
[2022-04-21 17:58] VITALS: PULSE 91; O2SAT 97
[2022-04-21 18:00] VITALS: PULSE 91; O2SAT 96
[2022-04-21 18:19] LABS: Add Manual Diff / Slide Review NO; Basophils Absolute Auto 0 /uL (0-100); Basophils Percent Auto 0.4 % (0-2); Eosinophils Absolute Auto 100 /uL (0-450); Eosinophils Percent Auto 1.6 % (2-4); Hematocrit 30.1 % (41-53); Hemoglobin 10.3 g/dL (13.5-17.5); Lymphocytes Absolute Auto 600 /uL (1100-4500); Lymphocytes Percent Auto 7.4 % (25-40); Mean Corpuscular HGB Conc 34.2 % (30-36); Mean Corpuscular Hemoglobin 34.5 PG (26-34); Mean Corpuscular Volume 100.9 fL (80-100); Monocytes Absolute Auto 800 /uL (0-900); Monocytes Percent Auto 9.2 % (3-14); Neutrophils Absolute Auto 7100 /uL (1500-7000); Neutrophils Percent Auto 81.4 % (50-75); Platelet Count 296 X10^3/uL (150-400); Red Blood Cell Count 2.98 X10^6/uL (4.5-5.9); Red Cell Distribution Width 13.9 % (11.6-14.8); White Blood Cell Count 8.8 X10^3/uL (4.5-11.0)
[2022-04-21 18:29] LABS: Alanine Aminotransferase 16 IU/L (<50); Albumin 3.9 g/dL (3.5-5.0); Albumin Globulin Ratio 0.9 (1.0-2.8); Alkaline Phosphatase 108 U/L (38-126); Aspartate Aminotransferase 47 IU/L (17-59); BUN Creatinine Ratio 34.2 (6-22); Bilirubin Total 0.6 mg/dL (0.2-1.3); Blood Urea Nitrogen 26 mg/dL (9-20); Calcium 9.2 mg/dL (8.4-10.2); Carbon Dioxide 20 mmol/L (22-32); Chloride 103 mmol/L (98-107); Creatine Kinase 47 U/L (55-170); Estimated Glomerular Filt Rate > 60 mL/min (>60); Globulin 4.5 g/dL (1.7-4.1); Glucose 100 mg/dL (80-110); HEMOLYSIS 34 (0-50); Sodium 133 mmol/L (137-145); Total Protein 8.4 g/dL (6.3-8.2)
[2022-04-21 18:42] LABS: Troponin I < 0.012 ng/mL (0.01-0.034)
[2022-04-21 18:46] LABS: Procalcitonin 0.11 ng/mL (<0.5)
[2022-04-21] MEDS: LIDOCAINE 2% (GLYDO) 6 ML GEL TOP (18:53)
[2022-04-21] MEDS: BISACODYL 10 MG SUPP PR (18:53)
[2022-04-21 19:05] VITALS: PULSE 83; O2SAT 96
[2022-04-21 19:06] VITALS: BP 111/56; PULSE 84; O2SAT 96
[2022-04-21] MEDS: SODIUM CHLORIDE 0.9% 1,000 ML 150 ML IV (19:07)
[2022-04-21 19:41] VITALS: PULSE 94; O2SAT 94
--- NOTE | 2022-04-21 21:20 | PC.NURSE ---
Patient had large solid piece of bowel movement.
== END 2022-04-21 21:30 | disposition home or self-care (01) ==
PROVIDERS: Emergency Provider Emergency Medicine; PCP Family Medicine
DX: K59.00 Constipation, unspecified (principal); R33.8 Other retention of urine; I10 Essential (primary) hypertension; R42 Dizziness and giddiness
CPT/HCPCS: 51798; 74022; 80053; 82550; 84145; 84484; 85025; 93005; 93010; 96360; 96361; 99284

== ENCOUNTER → 2022-04-30 14:34 | Outpatient (CLI) | payer MEDICARE, OTHER, SELFPAY ==
--- NOTE | 2022-04-30 14:35 | DI.US.S_ITS ---
PROCEDURE: US SCROTUM INDICATIONS: CANCER OF UNKNOWN PRIMARY TECHNIQUE: Real-time scanning was performed of the scrotum and testicles, with image documentation. Color and pulse Doppler interrogation was performed of both testicles. COMPARISON: [facility], CT, CT CHEST ABD PEL W CON, 04/14/2022, 6:23. FINDINGS: Right: Testicle is normal in size at 2.5 x 1.4 x 2.5 cm, and homogenous in echotexture. Epididymis is normal in overall size and morphology. Small hydrocele. No varicoceles. Overlying scrotal skin is normal in thickness. Left: Testicle is normal in size at 2.6 x 1.4 x 2.5 cm, and homogeneous in echotexture. Epididymis is normal in overall size and morphology. No hydrocele or varicoceles. Overlying scrotal skin is normal in thickness. Doppler: Color and pulse Doppler demonstrate normal and symmetric arterial flow in both testicles. IMPRESSION: 1. No testicular mass. 2. No findings to suggest testicular torsion. 3. No epididymitis. 4. Small right hydrocele. Dictated by: Saran Branham M.D. on 04/30/2022 at 15:37 Approved by: Saran Branham M.D. on 04/30/2022 at 16:10
== END ==
PROVIDERS: PCP Family Medicine; Referring Provider Internal Medicine Hematology & Oncology; Visit Provider Internal Medicine Hematology & Oncology
DX: C80.1 Malignant (primary) neoplasm, unspecified (principal); N43.3 Hydrocele, unspecified
CPT/HCPCS: 76870

== ENCOUNTER 2022-05-05 17:43 | Emergency (ER) | payer MEDICARE, OTHER, SELFPAY ==
[2022-05-05 17:56] VITALS: BP 114/67; PULSE 89; RESP 18; TEMP 36.6; O2SAT 98; BMI 19.8
[2022-05-05 18:55] LABS: Bilirubin Urine UA NEGATIVE (NEGATIVE); Color Urine UA YELLOW; Glucose Urine UA NEGATIVE (Negative); Ketones Urine UA NEGATIVE (NEGATIVE); Leukocyte Esterase Urine UA 2+ (NEGATIVE); Nitrite Urine UA NEGATIVE (Negative); Occult Blood Urine UA 3+ (Negative); Protein Urine UA 2+ (Negative); Specific Gravity Urine UA 1.015 (1.000-1.035); Urobilinogen Urine UA 0.2 E.U./dL (0.2)
[2022-05-05 18:56] LABS: Add Manual Diff / Slide Review NO; Basophils Absolute Auto 0 /uL (0-100); Basophils Percent Auto 0.4 % (0-2); Eosinophils Absolute Auto 0 /uL (0-450); Eosinophils Percent Auto 0.5 % (2-4); Hematocrit 29.8 % (41-53); Hemoglobin 10.3 g/dL (13.5-17.5); Lymphocytes Absolute Auto 600 /uL (1100-4500); Lymphocytes Percent Auto 5.9 % (25-40); Mean Corpuscular HGB Conc 34.5 % (30-36); Mean Corpuscular Hemoglobin 34.4 PG (26-34); Mean Corpuscular Volume 99.5 fL (80-100); Monocytes Absolute Auto 800 /uL (0-900); Monocytes Percent Auto 8.4 % (3-14); Neutrophils Absolute Auto 8200 /uL (1500-7000); Neutrophils Percent Auto 84.8 % (50-75); Platelet Count 205 X10^3/uL (150-400); Red Blood Cell Count 2.99 X10^6/uL (4.5-5.9); White Blood Cell Count 9.6 X10^3/uL (4.5-11.0)
[2022-05-05 18:59] LABS: Appearance Urine UA CLOUDY
[2022-05-05 19:02] LABS: Alanine Aminotransferase 13 IU/L (<50); Albumin 3.9 g/dL (3.5-5.0); Albumin Globulin Ratio 0.9 (1.0-2.8); Alkaline Phosphatase 110 U/L (38-126); Aspartate Aminotransferase 42 IU/L (17-59); BUN Creatinine Ratio 25.3 (6-22); Bilirubin Total 0.5 mg/dL (0.2-1.3); Blood Urea Nitrogen 21 mg/dL (9-20); Calcium 9.4 mg/dL (8.4-10.2); Carbon Dioxide 24 mmol/L (22-32); Chloride 104 mmol/L (98-107); Estimated Glomerular Filt Rate > 60 mL/min (>60); Globulin 4.5 g/dL (1.7-4.1); Glucose 114 mg/dL (80-110); HEMOLYSIS < 15 (0-50); Potassium 3.8 mmol/L (3.4-5.1); Sodium 135 mmol/L (137-145); Total Protein 8.4 g/dL (6.3-8.2)
[2022-05-05 19:04] LABS: Amorphous Sediment Urine 2+; Bacteria Urine Many (>30); Culture Indicated Urine Specimen Cultured; RBC Urine 5-10/HPF (0-5/HPF); WBC Urine 10-30/HPF (0-5/HPF)
--- NOTE | 2022-05-05 19:34 | DI.RAD.S_ITS ---
PROCEDURE: XR ABDOMEN MIN 2V INDICATIONS: ? constipation TECHNIQUE: 2 views of the abdomen were acquired. COMPARISON: [facility], CR, XR ACUTE ABDOMEN SERIES, 04/21/2022, 18:08. FINDINGS: Surgical changes and devices: There are median sternotomy wires within the visualized thorax. Multiple surgical clips are noted within the left abdomen. Bowel: No pneumoperitoneum. The bowel gas pattern demonstrates a moderate to large amount of stool throughout the colon. No abnormal distended small bowel loops or air-fluid levels to suggest small bowel obstruction. Soft tissues: No suspicious abdominal calcifications. Bones: No suspicious bony abnormalities. IMPRESSION: 1. Moderate to large amount of colonic stool suggestive of constipation. No evidence of bowel obstruction. Dictated by: Paul Garcia M.D. on 05/05/2022 at 21:03 Approved by: Paul Garcia M.D. on 05/05/2022 at 21:04
[2022-05-05 20:15] VITALS: BP 131/69
--- NOTE | 2022-05-05 20:20 | ED.ABDPAIN ---
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 Patient states his last bowel movement was April 22 after being seen in the emergency department here. He states he had urinary retention and had a Ventura catheter placed as well. Since then he has not had a bowel movement except for some very small amount of stool he pulled out his own fingers today. He is had minimal flatus. He states it feels like there is stool at the rectum and farther up. Has not had any vomiting he is had some nausea. He is had decreased appetite he is had minimal food intake but has been trying to drink water Darrick states probably not doing as good a job as he could. Taking 2 tablets of a stool softener 3 times daily and taking a laxative 1 times daily occasionally. Patient states he did get started on hydrocodone 10 mg multiple times daily and buprenorphine pain patch recently which is likely worsening his constipation. States his urine output has been okay he has a Ventura leg bag he states his abdomen has not been distended. States he felt kind of foggy today and a little bit off trying to figure out how to take his blood pressure but otherwise okay. No fevers or chills. Did have his lisinopril and metoprolol stopped secondary to hypotension on his last visit. Related Data Home Medications Medication Instructions Recorded Confirmed aspirin 81 mg chewable tablet 81 mg PO QDAY ##0 08/28/12 04/17/22 atorvastatin 40 mg tablet 40 mg PO DAILY 07/29/18 04/17/22 nitroglycerin 0.4 mg sublingual 0.4 mg sublingual Q5-15M PRN Chest 03/16/19 04/17/22 tablet (Nitrostat) Pain Previous Rx's Medication Instructions Recorded Disabled Parking Pass #1 ea 09/29/18 CMP KCCDGT 09/18///03/20% See Rx Instructions .Route 08/31/20 .COMPLEX #200 ea CMP KCCDGT 09/18/2/3/6/2% See Rx Instructions .Route 08/31/20 .COMPLEX #200 ea compound cream as below #180 grams 09/12/20 ibuprofen 600 mg tablet See Rx Instructions .Route 09/12/20 .COMPLEX #270 tabs clonazepam 0.25 mg disintegrating 0.25 mg PO DAILY #20 tabs 11/28/20 tablet acetazolamide 250 mg tablet 250 mg PO BID #60 tabs 12/06/20 levalbuterol tartrate 45 2 puff inhalation Q4-6H PRN 02/05/21 mcg/actuation aerosol inhaler shortness of breath #15 grams meclizine 25 mg tablet 25 mg PO DAILY PRN dizziness #90 05/15/21 tabs albuterol sulfate 90 mcg/actuation See Rx Instructions .Route 12/30/21 aerosol inhaler .COMPLEX #54 grams buprenorphine 20 mcg/hour weekly 1 patch transdermal QWEEK #4 ea 03/30/22 transdermal patch ondansetron 4 mg disintegrating See Rx Instructions PO .COMPLEX 04/03/22 tablet PRN nausea and vomiting #90 tabs fluticasone 250 mcg-salmeterol 50 See Rx Instructions .Route 04/07/22 mcg/dose blistr powdr for .COMPLEX #180 blisters inhalation hydrocodone 5 mg-acetaminophen 325 See Rx Instructions PO Q4-6H PRN 05/01/22 mg tablet pain #300 tabs cephalexin 500 mg capsule 500 mg PO BID 7 days #14 caps 05/05/22 glycerin (adult) 1 supp GA QD-BID PRN constipation 05/05/22 #25 ea methocarbamol 500 mg tablet See Rx Instructions .Route 05/05/22 .COMPLEX #90 tabs Allergies Allergy/AdvReac Type Severity Reaction Status Date / Time propoxyphene [From Darvon] Allergy Verified 05/05/22 18:00 nitrofurantoin AdvReac Intermediate Verified 05/05/22 18:00 Review of Systems Review of Systems ROS Unobtainable: All systems reviewed & are unremarkable except as noted in HPI and below Patient History Medical History Atrial fibrillation (~1993) Bilateral lower extremity edema Bladder cancer BPH (benign prostatic hyperplasia) Cervical somatic dysfunction Cervical spine disease Chronic neck pain Chronic, continuous use of opioids Coordination of complex care Coronary artery disease Counseling regarding advanced care planning and goals of care Counseling regarding end of life decision making Excessive cerumen in both ear canals Flushing GERD (gastroesophageal reflux disease) Hypertension Hypotension Idiopathic pulmonary fibrosis Iliotibial band syndrome, right leg Increased frequency of urination Increasing shortness of breath Macrocytosis Malaise and fatigue Menieres disease Muscular deconditioning Myocardial infarction (1978) Nausea Nausea alone Night sweats Pelvic somatic dysfunction Rib pain on left side Segmental and somatic dysfunction of abdomen and other regions Segmental and somatic dysfunction of lower extremity Segmental and somatic dysfunction of lumbar region Segmental and somatic dysfunction of rib cage Segmental and somatic dysfunction of sacral region Segmental and somatic dysfunction of thoracic region Somatic dysfunction of lower extremity Thoracic aortic aneurysm Tremor Wound, open, foot Surgical History History of abdominal aortic aneurysm repair (~2006) Hx of cervical discectomy Hx of coronary artery bypass graft (~1980) Hx of laminectomy (~04/2016) Hx of transurethral resection of prostate S/P carotid endarterectomy (~1990) Family History Father No problems noted. Mother No problems noted. Social History Smoking Status: Former smoker Tobacco: How many years used: 19 second hand exposure: No alcohol intake: never substance use type: does not use Smoking Status: Former smoker alcohol intake frequency: holidays/special occasions only Substance Use Type: does not use Exam Narrative Exam Narrative: GENERAL: Alert and oriented x three, elderly, well-appearing male in mild distress. HEENT: Head normocephalic, atraumatic, EOMI, pupils reactive, face symmetric, moist mucous membranes NECK: Supple, full range of motion CARDIOVASCULAR: Regular rate and rhythm without murmurs, rubs or gallops. RESPIRATORY: Breath sounds equal bilaterally, no wheezes rales or rhonchi. ABDOMEN: Soft, nontender. Nondistended. Normoactive bowel sounds all 4 quadrants. No guarding or rebound, rigidity, no mass, patient has a large amount of hard stool on rectal exam, no blood on exam. : No CVA tenderness EXTREMITIES: Normal range of motion, no clubbing or edema. Neurovascularly intact NEUROLOGICAL: Cranial nerves II through XII grossly intact. Moving all extremities SKIN: Warm, dry, no petechiae, no rashes or lesions. Initial Vital Signs Initial Vital Signs: Vital Signs Temperature 97.9 F 05/05/22 17:56 Pulse Rate 89 05/05/22 17:56 Respiratory Rate 18 05/05/22 17:56 Blood Pressure 114/67 05/05/22 17:56 Pulse Oximetry 98 05/05/22 17:56 Oxygen Delivery Method 05/05/22 17:56 Course Orders Ordered: Discontinued Medications Hydrocodone Bitart/Acetaminophen (Hydrocodone/Acet 5/325 Tablet) 2 tab PO NOW ONE Stop: 05/05/22 22:18 Last Admin: 05/05/22 22:23 Dose: 2 tab Documented By: RL Glycerin (Glycerin Supp Adult 1 Supp) 1 each GA NOW ONE Stop: 05/05/22 20:38 Last Admin: 05/05/22 21:01 Dose: 1 each Documented By: RL Sodium Chloride (Normal Saline 0.9%) 1,000 mls @ 1,000 mls/hr IV BOLUS ONE Stop: 05/05/22 21:18 Last Infusion: 05/05/22 22:23 Dose: 0 mls/hr Documented By: Admin: 05/05/22 20:27 Dose: 1,000 mls/hr Documented By: RL Lidocaine HCl (Lidocaine 2% (Glydo) 6 Ml Gel) 6 ml TOP NOW ONE Stop: 05/05/22 22:02 Last Admin: 05/05/22 22:19 Dose: 6 ml Documented By: AT Magnesium Citrate (Magnesium Citrate 300 Ml Solution) 300 ml PO NOW ONE Stop: 05/05/22 22:57 Last Admin: 05/05/22 23:03 Dose: 300 ml Documented By: RL Mineral Oil (Mineral Oil 1 Each Enema) 1 each GA NOW ONE Stop: 05/05/22 20:20 Last Admin: 05/05/22 20:27 Dose: 1 each Documented By: RL Vital Signs Vital signs: Vital Signs - 8 hr 05/05/22 17:56 Temperature 97.9 F Pulse Rate 89 Respiratory Rate 18 Blood Pressure 114/67 Pulse Oximetry 98 Oxygen Delivery Method Room Air MDM - Abdominal Pain Lab Data Result diagrams: 05/05/22 18:30 05/05/22 18:30 Labs: Lab Results 07/05/05/22 05/05/22 Range/Units 18:30 18:30 18:30 WBC 9.6 (4.5-11.0) X10^3/uL RBC 2.99 L (4.5-5.9) X10^6/uL Hgb 10.3 L (13.5-17.5) g/dL Hct 29.8 L (41-53) % MCV 99.5 (80-100) fL MCH 34.4 H (26-34) PG MCHC 34.5 (30-36) % RDW 14.0 (11.6-14.8) % Plt Count 205 (150-400) X10^3/uL Neut % (Auto) 84.8 H (50-75) % Lymph % (Auto) 5.9 L (25-40) % Whiteside % (Auto) 8.4 (3-14) % Eos % (Auto) 0.5 L (2-4) % Baso % (Auto) 0.4 (0-2) % Neut # (Auto) 8200 H (4877-3654) /uL Lymph # (Auto) 600 L (0104-7421) /uL [place] # (Auto) 800 (0-900) /uL Eos # (Auto) 0 (0-450) /uL Baso # (Auto) 0 (0-100) /uL Sodium 135 L (137-145) mmol/L Potassium 3.8 (3.4-5.1) mmol/L Chloride 104 (98-107) mmol/L Carbon Dioxide 24 (22-32) mmol/L BUN 21 H (9-20) mg/dL Creatinine 0.83 (0.66-1.25) mg/dL Estimated GFR > 60 (>60) mL/min BUN/Creatinine Ratio 25.3 H (6-22) Glucose 114 H (80-110) mg/dL Calcium 9.4 (8.4-10.2) mg/dL Total Bilirubin 0.5 (0.2-1.3) mg/dL AST 42 (17-59) IU/L ALT 13 (<50) IU/L Alkaline Phosphatase 110 (38-126) U/L Total Protein 8.4 H (6.3-8.2) g/dL Albumin 3.9 (3.5-5.0) g/dL Globulin 4.5 H (1.7-4.1) g/dL Albumin/Globulin Ratio 0.9 L (1.0-2.8) Urine Color Yellow Urine Appearance Cloudy Urine pH 7.0 (4.5-8.0) Ur Specific [place] 1.015 (1.000-1.035) Urine Protein 2+ H (Negative) Urine Glucose (UA) Negative (Negative) g/dL Urine Ketones Negative (NEGATIVE) Urine Occult Blood 3+ H (Negative) Urine Nitrate Negative (Negative) Urine Bilirubin Negative (NEGATIVE) Urine Urobilinogen 0.2 (0.2) E.U./dL Ur Leukocyte Esterase 2+ H (NEGATIVE) Urine RBC 5-10/hpf H (0-5/HPF) Urine WBC 10-30/hpf H (0-5/HPF) Amorphous Sediment 2+ Urine Bacteria Many (>30) H (None) Ur Culture Indicated? Specimen cultured Imaging Data Abdominal x-ray: My Impression: prelim-no obstruction. Radiologist's Impression: Close Abdomen X-Ray (Signed) Paul Garcia - 05/05/22 Scrotum Ultrasound (Signed) Tegan Branham - 04/30/22 Chest/Abdomen X-ray (Signed) Sam Shah - 04/21/[address] (Signed) Tegan Branham - 04/14/22 Chest/Abdomen/Pelvis CT (Signed) Luis Eduardo Reynaga - 04/14/22 Chest X-Ray (Signed) Luis Eduardo Reynaga - 04/14/22 Foot X-Ray (Signed) Paul Silva - 03/31/22 DI Result CC 07/08/21 Chest X-Ray (Signed) Jessica Uribe - 06/10/20 Chest X-Ray (Signed) Ramy Villalpando - 06/01/20 Barium Swallow X-Ray (Signed) Ramy Villalpando - 12/22/19 DI Result CC 08/24/19 DI Result CC 08/24/19 Lumbar Spine MRI (Signed) Luis Gonzales - 07/21/19 Chest X-Ray (Signed) Tegan Branham - 05/10/19 Chest X-Ray (Signed) Tegan Branham - 03/02/19 DI Result CC 03/02/19 Lumbar Spine MRI (Signed) Sarita Bay - 03/04/18 Launch?Image [address] [address] XRay Report Signed Patient: Maged Avitia Jr MR#: [id number] : 1940 Acct:[id number] Age/Sex: 81 / M Date of Service: 05/05/22 Loc: ED Accession Number: [id number] ?? Procedure: XR abdomen min 2V Ordering Provider: Ashlyn Szymanski D.O. PROCEDURE:? XR ABDOMEN MIN 2V ? INDICATIONS:? ? constipation ? TECHNIQUE:? 2 views of the abdomen were acquired.? ? COMPARISON:? [facility], CR, XR ACUTE ABDOMEN SERIES, 04/21/2022, 18:08. ? FINDINGS:? Surgical changes and devices:? There are median sternotomy wires within the visualized thorax.? Multiple surgical clips are noted within the left abdomen.? ? Bowel:? No pneumoperitoneum.? The bowel gas pattern demonstrates a moderate to large amount of stool throughout the colon.? No abnormal distended small bowel loops or air-fluid levels to suggest small bowel obstruction. ? Soft tissues:? No suspicious abdominal calcifications.? ? Bones:? No suspicious bony abnormalities.? ? IMPRESSION:? ? 1. Moderate to large amount of colonic stool suggestive of constipation.? No evidence of bowel obstruction.? ? ? Dictated by: Paul Garcia M.D. on 05/05/2022 at 21:03 ? ? Approved by: Paul Garcia M.D. on 05/05/2022 at 21:04?? ECG Data Attestation: I personally reviewed and interpreted this ECG as follows: Prior ECG tracings: available for review Interpretation: Sinus rhythm rate 83 GA 158 QRS of 108 QTC 434. Q-wave in lead 3, no acute ST elevation noted. Patient has prior from 04/21/2022 which appears similar. MDM Narrative Medical decision making narrative: This is an elderly 81-year-old male with 13 days of constipation he has been able to extract a small amount of stool but has not been able to really have a bowel movement. He is on several narcotic pain medications which are new likely exacerbating his symptoms he has known cancer which is currently being worked with multiple metastases. No other obstructive changes currently, abdominal x-ray does not show an obstructive pattern. Plan for fluids, enema and if unsuccessful disimpaction, patient's labs are reassuring his urine culture is positive and will likely start antibiotic as he is had some fogginess that he is felt. Patient had enema but was minimally helpful, suppository for several small balls of stool. Patient disimpacted in the department with moderate improvement. Patient was also given oral magnesium citrate with return precautions, regimen to assist with stooling as he is on chronic narcotics for his metastatic cancer. No signs of obstruction today but patient asked to return if worsening. Discharge Plan Departure Patient Disposition: Home Clinical Impression: Constipation, Acute UTI Instructions: DI for Constipation Activity Restrictions/Additional Instructions: Please follow-up with your physician. Your urine shows possible signs of infection today. Prescription for antibiotic was sent to [facility] in [place]. Make sure drinking plenty of fluids. Make sure you continue your stool softener 3 times daily and I would go ahead and add the laxative twice daily to this. These medications work better when drinking plenty of fluids. You may try magnesium citrate, drink 1/2 bottle then wait 4-5 hours if no changes for stool output you may drink the 2nd half of the bottle. You can use glycerin suppositories as needed in addition. Please return for fevers, worsening abdominal pain, if you are still not having regular bowel movements or passing gas or flatus, vomiting, other new or concerning changes. Prescriptions: New cephalexin 500 mg capsule 500 mg PO BID 7 Days Qty: 14 0RF glycerin (adult) Suppository 1 supp GA QD-BID PRN (Reason: constipation) Qty: 25 0RF No Action atorvastatin 40 mg tablet 40 mg PO DAILY (DME) Disabled Parking Pass Qty: 1 0RF Dose Instruction: As directed Rx Instructions: As directed aspirin 81 MG tablet,chewable 81 mg PO QDAY Qty: 0 (DME) compound cream as below See Rx Instructions .Route .MEDSUPPLY Qty: 180 5RF Dose Instruction: APPLY 1 TO 2 PUMPS ( 1 TO 2 GRAMS) TOPICALLY UP TO 3 TIMES A DAY IF NEEDED FOR PAIN Rx Instructions: APPLY 1 TO 2 PUMPS ( 1 TO 2 GRAMS) TOPICALLY UP TO 3 TIMES A DAY IF NEEDED FOR PAIN, ok to make without cetyl myristoleate (09/11/2020). albuterol sulfate 90 mcg/actuation HFA aerosol inhaler See Rx Instructions .ROUTE .COMPLEX Qty: 54 3RF Dose Instruction: INHALE 2 PUFFS BY MOUTH EVERY 6 HOURS NEEDED FOR SHORTNESS OF BREATH OR WHEEZING Rx Instructions: INHALE 2 PUFFS BY MOUTH EVERY 6 HOURS NEEDED FOR SHORTNESS OF BREATH OR WHEEZING buprenorphine 20 mcg/hour patch weekly 1 patch transdermal QWEEK Qty: 4 5RF Rx Instructions: PA approved 10/19/21-10/18/22 fluticasone propion-salmeterol 250-50 mcg/dose blister with device See Rx Instructions .ROUTE .COMPLEX Qty: 180 2RF Dose Instruction: INHALE 1 PUFF TWICE DAILY Rx Instructions: INHALE 1 PUFF TWICE DAILY hydrocodone-acetaminophen 5-325 mg tablet See Rx Instructions PO Q4-6H PRN (Reason: pain) Qty: 300 0RF Rx Instructions: take 1-2 tablets, PO every 4-6 hours PRN; methocarbamol 500 mg tablet See Rx Instructions .ROUTE .COMPLEX Qty: 90 11RF Dose Instruction: TAKE 3 TABLET BY MOUTH THREE TIMES DAILY FOR 3 DAYS, THEN 2 DAYS OFF, CONTINUE TO ALTERNATE NEEDED IN THIS PATTERN Rx Instructions: TAKE 3 TABLET BY MOUTH THREE TIMES DAILY FOR 3 DAYS, THEN 2 DAYS OFF, CONTINUE TO ALTERNATE NEEDED IN THIS PATTERN nitroglycerin [Nitrostat] 0.4 mg tablet, sublingual 0.4 mg SL Q5-15M PRN (Reason: Chest Pain) CMP [facility] 12//2/3/6/2% See Rx Instructions .ROUTE .COMPLEX Qty: 200 0RF Dose Instruction: APPLY 1 TO 2 PUMPS ( 1 TO 2 GRAMS) TOPICALLY UP TO 3 TIMES A DAY IF NEEDED FOR PAIN Rx Instructions: APPLY 1 TO 2 PUMPS ( 1 TO 2 GRAMS) TOPICALLY UP TO 3 TIMES A DAY IF NEEDED FOR PAIN CMP CD 12//2/3/6/2% See Rx Instructions .ROUTE .COMPLEX Qty: 200 0RF Dose Instruction: APPLY 1 TO 2 PUMPS ( 1 TO 2 GRAMS) TOPICALLY UP TO 3 TIMES A DAY IF NEEDED FOR PAIN Rx Instructions: APPLY 1 TO 2 PUMPS ( 1 TO 2 GRAMS) TOPICALLY UP TO 3 TIMES A DAY IF NEEDED FOR PAIN acetazolamide 250 mg tablet 250 mg PO BID Qty: 60 1RF meclizine 25 mg tablet 25 mg PO DAILY PRN (Reason: dizziness) Qty: 90 3RF ondansetron 4 mg tablet,disintegrating See Rx Instructions PO .COMPLEX PRN (Reason: nausea and vomiting) Qty: 90 3RF Rx Instructions: take 15 minutes before eating up to three times a day ibuprofen 600 mg tablet See Rx Instructions .ROUTE .COMPLEX Qty: 270 0RF Dose Instruction: TAKE 1 TABLET EVERY 8 HOURS NEEDED FOR PAIN Rx Instructions: TAKE 1 TABLET EVERY 8 HOURS NEEDED FOR PAIN clonazepam 0.25 mg tablet,disintegrating 0.25 mg PO DAILY Qty: 20 0RF levalbuterol tartrate 45 mcg/actuation HFA aerosol inhaler 2 puff inhalation Q4-6H PRN (Reason: shortness of breath) Qty: 15 12RF Referrals: Shiva Tirado DO [Primary Care Provider] - Visit Report Forms: Patient Portal/API
[2022-05-05] MEDS: MINERAL OIL 1 EACH ENEMA PR (20:27)
[2022-05-05] MEDS: SODIUM CHLORIDE 0.9% 1,000 ML 1000 ML IV (20:27)
[2022-05-05] MEDS: GLYCERIN SUPP ADULT 1 SUPP 1 EACH PR (21:01)
[2022-05-05] MEDS: LIDOCAINE 2% (GLYDO) 6 ML GEL TOP (22:19)
[2022-05-05] MEDS: HYDROCODONE/ACET 5/325 TABLET 2 TAB PO (22:23)
[2022-05-05] MEDS: MAGNESIUM CITRATE 300 ML SOLUTION PO (23:03)
[2022-05-05 23:04] VITALS: BP 111/63; PULSE 90; O2SAT 95
--- NOTE | 2022-05-06 15:41 | PC.NURSE ---
portal message from Neyda Thibodeaux asking us to speak with pt about appts. This RN called and spoke with pt. He is aware of all appts and listed the dates of US, PET and f/u.
== END 2022-05-05 23:10 | disposition home or self-care (01) ==
PROVIDERS: Emergency Provider Emergency Medicine; PCP Family Medicine
DX: K59.00 Constipation, unspecified (principal); N39.0 Urinary tract infection, site not specified; R07.9 Chest pain, unspecified
CPT/HCPCS: 36415; 74019; 80053; 81001; 85025; 87077; 87086; 87186; 93005; 93010; 96360; 96361; 99284

== ENCOUNTER 2022-05-08 08:04 | Outpatient (CLI) | payer MEDICARE, OTHER, SELFPAY ==
[2022-05-08] VITALS (11 sets, daily range): BP systolic 96–134; BP diastolic 57–77; PULSE 60–100; RESP 14–16; TEMP 36.2–36.8; O2SAT 97–100
--- NOTE | 2022-05-08 | DI.US.S_ITS ---
PROCEDURE: US ABDOMEN LIMITED INDICATIONS: LIVER METS TECHNIQUE: Real-time scanning was performed of the abdominal and retroperitoneal organs, with image documentation. COMPARISON: [facility], CT, CT CHEST ABD PEL W CON, 04/14/2022, 6:23. FINDINGS: The left hepatic mass seen on CT is not well seen on the ultrasound IMPRESSION: The left hepatic mass seen on CT is not well seen on ultrasound. Biopsy was switched to CT guidance. Dictated by: Saran Branham M.D. on 05/08/2022 at 17:12 Approved by: Saran Branham M.D. on 05/08/2022 at 17:13
--- NOTE | 2022-05-08 | DI.CT.S_ITS ---
PROCEDURE: CT BIOPSY LIVER Sedation analgesia for 20 minutes. INDICATIONS: LIVER LENSION TECHNIQUE: The indications, alternatives, benefits, risks, and possible complications of the procedure were communicated to the patient. Informed written consent from the patient was obtained and placed in the chart. Continuous EKG and hemodynamic monitoring was started by trained personnel. The patient was brought to the CT suite and cradle slide maker spiral CT imaging was performed with localization grid. The appropriate site for percutaneous access to the biopsy target was marked, was prepped and draped sterilely, and was infused with local anaesthesia. Under CT guidance, a core biopsy trocar and needle set was advanced to the biopsy target, and specimen(s) were obtained. The trocar and needle were then removed, and the patient was sent for post-procedure monitoring. COMPARISON: [facility], CT, CT CHEST ABD PEL W CON, 04/14/2022, 6:23. [facility], US, US ABDOMEN LIMITED, 05/08/2022, 9:18. FINDINGS: Biopsy site: Left hepatic lobe mass Needle: 20 gauge biopsy needle with introducer trocar. Number of passes: 4 Medications: 1% lidocaine for local anaesthesia. IV Fentanyl and Versed for conscious sedation for 20 minutes (see nursing record). Complications: None. IMPRESSION: Successful CT-guided biopsy of left hepatic mass. Dictated by: Saran Branham M.D. on 05/08/2022 at 12:39 Approved by: Saran Branham M.D. on 05/08/2022 at 12:44
--- NOTE | 2022-05-08 | PATH_ITS ---
[facility] Accession Number: [id number] . 01 Material submitted: . HEPATIC LOBE - L HEPATIC LOBE . 01 Clinical history: . LIVER LESION SUSPICIOUS FOR METASTASIS . 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 MRV 05/14/2022 1414 Local . 01 Electronically signed: . Saroj Davis MD, PhD, Pathologist NPI- [id number] . 01 Gross description: . L HEPATIC LOBE: Received in formalin are 2 fragment(s) of lebron, soft tissue measuring 1.0 x 0.1 x 0.1 cm to 1.0 x 0.1 x 0.1 cm submitted entirely in 1 cassette(s) /CPE 05/09/2022 0401 Local . 01 Microscopic: . Sections are of liver parenchyma infiltrated by a proliferation of epithelioid cells with a sheet-like growth pattern. Diffuse necrosis is present. To further evaluate the malignant cells, a panel of immunohistochemical stains is performed (each with an appropriately positive control). The malignant cells are strongly and diffusely positive for TALISHA (magana cytokeratin), cytokeratin 7, and GATA3 immunoreactivity, and are negative for cytokeratin 20 and other markers of specific differentiation, including enteric (SATB2, villin) or prostate (PSA). The overall morphology and immunoprofile are compatible with urothelial carcinoma. . * This test was developed and its performance characteristics determined by [employer]. It has not been cleared or approved by the [place]. Food and Drug Administration. The FDA has determined that such clearance or approval is not necessary. This test is used for clinical purposes. It should not be regarded as investigational or for research. . 01 Pathologist provided ICD-10: Z85.51, C78.7 . 01 CPT . 777256, Y19891, B14428 Specimen Comment: A courtesy copy of this report has been sent to [phone] Performed at: 01 [facility] [address] [place] [address], [place], [place] [id number] MD Paul Rahman MD Phone: [phone]
[2022-05-08] MEDS: MIDAZOLAM 2 MG/2 ML VIAL 1 MG IV (10:26)
[2022-05-08] MEDS: fentaNYL 100 MCG/2 ML INJ 50 MCG IV (10:27)
== END 2022-05-08 12:58 | disposition home or self-care (01) ==
PROVIDERS: PCP Family Medicine; Referring Provider Internal Medicine Hematology & Oncology; Visit Provider Internal Medicine Hematology & Oncology
DX: C78.7 Secondary malignant neoplasm of liver and intrahepatic bile duct (principal); C77.2 Secondary and unspecified malignant neoplasm of intra-abdominal lymph nodes; R91.8 Other nonspecific abnormal finding of lung field; Z85.51 Personal history of malignant neoplasm of bladder
CPT/HCPCS: 36415; 47000; 76705; 77012; 85014; 85049; 85610; J2250; J3010

== ENCOUNTER 2022-05-12 22:00 | Emergency (ER) | payer MEDICARE, OTHER, SELFPAY ==
[2022-05-12 22:06] VITALS: BP 77/44; PULSE 105; RESP 22; TEMP 36.9; O2SAT 97
--- NOTE | 2022-05-12 22:28 | DI.CT.S_ITS ---
PROCEDURE: CT CHEST ABD PEL W CON INDICATIONS: dizzy, weak, lightheaded, BP in 70s, recent liver biopsy TECHNIQUE: After the administration of intravenous contrast, 5 mm thick sections acquired from the lung apices to the symphysis. 2.5 mm thick coronal and sagittal reformats were acquired. Additional 7 mm thick coronal maximum intensity projection (MIP) reformats acquired through the lungs. Optional 10-minute delayed imaging may be performed from the kidneys to the bladder. For radiation dose reduction, the following was used: automated exposure control, adjustment of mA and/or kV according to patient size. COMPARISON: [facility], CT, CT CHEST ABD PEL W CON, 04/14/2022, 6:23. FINDINGS: No acute consolidation. Scattered pulmonary nodules are unchanged from prior study. Superior left upper lobe nodule measuring 6 mm is unchanged. Emphysema and findings of COPD redemonstrated. No pleural effusion or pneumothorax. Normal heart size. Median sternotomy changes. Four-vessel coronary atherosclerosis. No pericardial effusion. No threshold enlarged mediastinal or hilar lymph node. Enlarged main pulmonary artery. 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 Moderate ectasia of the ascending thoracic aorta is also unchanged. No hiatal hernia. Bulky retroperitoneal lymphadenopathy is significantly increased when compared with 04/14/2022 exam. 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 In particular the IVC is narrowed to a slit like diameter with suspected compromise in venous return. No abnormally dilated or thickened loop of bowel. No pericolonic or mesenteric inflammatory changes. Likely metastatic lesions in the liver are not significantly changed. Spleen unremarkable. New adreniform thickening. No acute finding in the kidneys. Gallbladder mildly distended but without findings suspicious for cholecystitis. Urinary bladder decompressed by a Ventura catheter. Mild prostatomegaly. No acute or suspicious osseous lesion. IMPRESSION: Significantly increased bulky retroperitoneal and central abdominal lymphadenopathy with worsened mass effect on the renal veins and IVC. When combined with the provided clinical history, the findings suggest some combination of decreased venous return to the heart as well as possible decreased renal fluid resorption resulting in hypovolemia. Metastatic hepatic mass is not significantly changed. Multiple pulmonary nodules suspicious for metastatic lesions are also unchanged. Remaining chronic findings are similar. Dictated by: Jayro Sullivan M.D. on 05/12/2022 at 22:57 Approved by: Jayro Sullivan M.D. on 05/12/2022 at 23:06
[2022-05-12 22:32] LABS: Add Manual Diff / Slide Review NO; Basophils Absolute Auto 0 /uL (0-100); Basophils Percent Auto 0.2 % (0-2); Eosinophils Absolute Auto 0 /uL (0-450); Eosinophils Percent Auto 0.4 % (2-4); Hematocrit 24.5 % (41-53); Hemoglobin 8.4 g/dL (13.5-17.5); Lymphocytes Absolute Auto 1000 /uL (1100-4500); Mean Corpuscular HGB Conc 34.1 % (30-36); Mean Corpuscular Hemoglobin 34.4 PG (26-34); Mean Corpuscular Volume 101.1 fL (80-100); Monocytes Absolute Auto 1100 /uL (0-900); Monocytes Percent Auto 10.7 % (3-14); Neutrophils Absolute Auto 8200 /uL (1500-7000); Neutrophils Percent Auto 78.7 % (50-75); Platelet Count 309 X10^3/uL (150-400); Red Blood Cell Count 2.43 X10^6/uL (4.5-5.9); Red Cell Distribution Width 14.3 % (11.6-14.8); White Blood Cell Count 10.4 X10^3/uL (4.5-11.0)
--- NOTE | 2022-05-12 22:36 | ED.SOB ---
HPI - SOB/Dyspnea <Thomas Galeas, DO - Last Filed: 05/15/22 04:05> General Chief Complaint: Shortness of Breath/Dyspnea Stated Complaint: SOB Time Seen by Provider: 05/12/22 22:18 Source: patient Mode of arrival: Wheelchair History of Present Illness HPI Narrative: 81-year-old male former smoker with multiple metastatic cancer involving liver, retroperitoneum, mesentery and lungs as well as extensive cardiac history including multiple bypasses and stents as well as prior stroke, hypertension, hyperlipidemia and what sounds like a recent diagnosis of pulmonary fibrosis presents with a chief complaint of profound shortness of breath, dizziness, weakness and lightheadedness over the course of the day. He states that every time he stands up he feels like he will pass out and even minimal motion makes him feel short of breath and lightheaded. He denies any chest pain but has been short of breath with minimal exertion as mentioned. He is had no fever or chills. He is nauseated but denies any vomiting. He has been worked up recently for a newly discovered liver mass and recently had a biopsy. He has been having bowel movements but we have actually seen him a few times with a chief complaint of constipation. He states his stools have been dark but not tarry or bloody. He denies any dysuria, frequency or urgency. He denies any change in medications. He states he is never felt this bad and was afraid that if he stayed home he would tonight. He is a full code. He has seen local oncology and tumor markers have been ordered as well as a PET scan (not yet performed) in liver biopsy which has been performed but not yet resulted. He is not had any treatment, intervention or therapy Related Data Home Medications Medication Instructions Recorded Confirmed nitroglycerin 0.4 mg sublingual 0.4 mg sublingual Q5-15M PRN Chest 03/16/19 05/13/22 tablet (Nitrostat) Pain atorvastatin 20 mg tablet 40 mg PO DAILY 05/09/22 05/13/22 lisinopril 5 mg tablet 5 mg PO DAILY 05/09/22 05/09/22 metoprolol tartrate 50 mg tablet 50 mg PO BID 05/09/22 05/14/22 tamsulosin 0.4 mg capsule 0.4 mg PO DAILY 05/09/22 05/13/22 ibuprofen 600 mg tablet 600 mg PO Q8H PRN Pain (Scale 05/13/22 05/13/22 Score 1-3) methocarbamol 500 mg tablet 1,000 mg PO Q8HR PRN muscle spasm 05/14/22 05/14/22 Previous Rx's Medication Instructions Recorded Disabled Parking Pass #1 ea 09/29/18 CMP [id number] 09/18//3//% See Rx Instructions .Route 08/31/20 .COMPLEX #200 ea compound cream as below #180 grams 09/12/20 levalbuterol tartrate 45 2 puff inhalation Q4-6H PRN 02/05/21 mcg/actuation aerosol inhaler shortness of breath #15 grams meclizine 25 mg tablet 25 mg PO DAILY PRN dizziness #90 05/15/21 tabs albuterol sulfate 90 mcg/actuation See Rx Instructions .Route 12/30/21 aerosol inhaler .COMPLEX #54 grams buprenorphine 20 mcg/hour weekly 1 patch transdermal QWEEK #4 ea 03/30/22 transdermal patch ondansetron 4 mg disintegrating See Rx Instructions PO .COMPLEX 04/03/22 tablet PRN nausea and vomiting #90 tabs fluticasone 250 mcg-salmeterol 50 See Rx Instructions .Route 04/07/22 mcg/dose blistr powdr for .COMPLEX #180 blisters inhalation hydrocodone 5 mg-acetaminophen 325 See Rx Instructions PO Q4-6H PRN 05/01/22 mg tablet pain #300 tabs glycerin (adult) 1 supp UT QD-BID PRN constipation 05/05/22 #25 ea levofloxacin 500 mg tablet 500 mg PO DAILY #7 tabs 05/07/22 Allergies Allergy/AdvReac Type Severity Reaction Status Date / Time propoxyphene [From Darvon] Allergy Verified 05/09/22 10:49 nitrofurantoin AdvReac Intermediate Verified 05/09/22 10:49 Review of Systems <Thomas Galeas DO - Last Filed: 05/15/22 04:05> Review of Systems Narrative: GENERAL: See HPI HEENT: Denies sinus pain, ear pain, sore throat, difficulty swallowing, dizziness. RESPIRATORY: See HPI CARDIOVASCULAR: Denies chest pain, palpitations, orthopnea, edema, GASTROINTESTINAL: Denies nausea, vomiting, abdominal pain, diarrhea, constipation, melena. : Denies dysuria, frequency, incontinence, hematuria, urinary retention. MUSCULOSKELETAL: denies weakness, joint pain, or bony pain SKIN: Denies rash, skin lesions, or other NEUROLOGIC: Denies weakness, headache, numbness, change in speech, confusion, seizures, incoordination. PSYCHIATRIC: No concerning psychosocial issues. 12 point review of systems is negative except for those stated above Patient History <Thomas Galeas DO - Last Filed: 05/15/22 04:05> Medical History Atrial fibrillation (~1993) Bilateral lower extremity edema Bladder cancer BPH (benign prostatic hyperplasia) Cervical somatic dysfunction Cervical spine disease Chronic neck pain Chronic, continuous use of opioids Coordination of complex care Coronary artery disease Counseling regarding advanced care planning and goals of care Counseling regarding end of life decision making Excessive cerumen in both ear canals Flushing GERD (gastroesophageal reflux disease) Hypertension Hypotension Idiopathic pulmonary fibrosis Iliotibial band syndrome, right leg Increased frequency of urination Increasing shortness of breath Macrocytosis Malaise and fatigue Menieres disease Muscular deconditioning Myocardial infarction (1978) Nausea Nausea alone Night sweats Pelvic somatic dysfunction Rib pain on left side Segmental and somatic dysfunction of abdomen and other regions Segmental and somatic dysfunction of lower extremity Segmental and somatic dysfunction of lumbar region Segmental and somatic dysfunction of rib cage Segmental and somatic dysfunction of sacral region Segmental and somatic dysfunction of thoracic region Somatic dysfunction of lower extremity Stress Therapeutic opioid induced constipation Thoracic aortic aneurysm Tremor Wound, open, foot Surgical History History of abdominal aortic aneurysm repair (~2006) Hx of cervical discectomy Hx of coronary artery bypass graft (~1980) Hx of laminectomy (~04/2016) Hx of transurethral resection of prostate S/P carotid endarterectomy (~1990) Family History Father No problems noted. Mother No problems noted. Social History Smoking Status: Former smoker Tobacco: How many years used: 19 second hand exposure: No alcohol intake: never substance use type: does not use Smoking Status: Former smoker alcohol intake frequency: holidays/special occasions only Substance Use Type: does not use Exam <DO Bradley Sharma Last Filed: 05/15/22 04:05> Narrative Exam Narrative: GENERAL: [81] year old patient appears stated age. Thin, frail and elderly, in obvious distress HEAD: Atraumatic. Normocephalic. EYES: Pale conjunctiva Pupils equal round and reactive. Extraocular motions intact. No scleral icterus. No injection or drainage. ENT: Nose without bleeding, purulent drainage. Throat without erythema, tonsillar hypertrophy or exudate. Airway patent. NECK: Trachea midline. Non tender CARDIOVASCULAR: Tachycardic but regular rhythm without murmurs, gallops, or rubs. RESPIRATORY: Clear to auscultation. Breath sounds equal bilaterally. No wheezes, rales, or rhonchi. GASTROINTESTINAL: Abdomen soft, non-tender, nondistended. RECTAL: dark stool, heme positive EXTREMITIES: No edema or joint tenderness. BACK: Nontender without deformity or crepitance. No flank tenderness. NEURO: AOx3. SKIN: Poor skin turgor, pale No rash or erythema of visible areas Initial Vital Signs Initial Vital Signs: Vital Signs Temperature 98.5 F 05/12/22 22:06 Pulse Rate 105 H 05/12/22 22:06 Respiratory Rate 22 05/12/22 22:06 Blood Pressure 77/44 L 05/12/22 22:06 Pulse Oximetry 97 05/12/22 22:06 Oxygen Delivery Method 05/12/22 22:06 <Aleena Portillo DO - Last Filed: 05/14/22 14:41> Initial Vital Signs Initial Vital Signs: Vital Signs Temperature 98.5 F 05/12/22 22:06 Pulse Rate 105 H 05/12/22 22:06 Respiratory Rate 22 05/12/22 22:06 Blood Pressure 77/44 L 05/12/22 22:06 Pulse Oximetry 97 05/12/22 22:06 Oxygen Delivery Method 05/12/22 22:06 Course <DO Bradley Sharma Last Filed: 05/15/22 04:05> Orders Ordered: Discontinued Medications Hydrocodone Bitart/Acetaminophen (Hydrocodone/Acet 5/325 Tablet) 2 tab PO NOW ONE Stop: 05/13/22 02:22 Last Admin: 05/13/22 02:32 Dose: 2 tab Documented By: PALAK Hydrocodone Bitart/Acetaminophen (Hydrocodone/Acet 5/325 Tablet) 2 tab PO NOW ONE Stop: 05/13/22 08:02 Last Admin: 05/13/22 08:33 Dose: 2 tab Documented By: NAOMI Hydrocodone Bitart/Acetaminophen (Hydrocodone/Acet 5/325 Tablet) 2 tab PO Q4HR PRN PRN Reason: Pain, Severe (7-10) Last Admin: 05/14/22 12:17 Dose: 2 tab Documented By: Admin: 05/14/22 07:30 Dose: 2 tab Documented By: Admin: 05/14/22 03:20 Dose: 2 tab Documented By: Admin: 05/13/22 22:24 Dose: 2 tab Documented By: Admin: 05/13/22 18:18 Dose: 2 tab Documented By: Admin: 05/13/22 14:03 Dose: 2 tab Documented By: HAM Hydrocortisone (Hydrocortisone 100 Mg/2 Ml Vial) 100 mg IV NOW ONE Stop: 05/14/22 10:14 Last Admin: 05/14/22 11:16 Dose: 100 mg Documented By: DEAN(2) Piperacillin Sod/Tazobactam (Sod 4.5 gm/ Sodium Chloride) 100 mls @ 200 mls/hr IV NOW ONE Stop: 05/12/22 23:22 Last Infusion: 05/13/22 00:35 Dose: 0 mls/hr Documented By: Admin: 05/12/22 23:43 Dose: 200 mls/hr Documented By: PALAK Sodium Chloride (Normal Saline 0.9%) 1,000 mls @ 150 mls/hr IV CONT JUAN Last Infusion: 05/14/22 14:35 Dose: 0 mls/hr Documented By: Admin: 05/14/22 11:14 Dose: 150 mls/hr Documented By: DEAN(2) Infusion: 05/14/22 07:20 Dose: 0 mls/hr Documented By: Infusion: 05/14/22 01:11 Dose: 150 mls/hr Documented By: Admin: 05/13/22 17:54 Dose: 150 mls/hr Documented By: Infusion: 05/13/22 16:56 Dose: 150 mls/hr Documented By: Admin: 05/13/22 10:15 Dose: 150 mls/hr Documented By: NAOMI Levofloxacin (Levofloxacin 250 Mg Tablet) 500 mg PO NOW ONE Stop: 05/14/22 12:30 Last Admin: 05/14/22 13:15 Dose: 500 mg Documented By: DEAN(2) Morphine Sulfate (Morphine 2 Mg/Ml Inj) 2 mg IV Q4HR PRN PRN Reason: Pain, Moderate (4-6) Last Admin: 05/13/22 10:15 Dose: 2 mg Documented By: NAOMI Ondansetron HCl (Ondansetron 4 Mg/2 Ml Inj) 4 mg IV NOW ONE Stop: 05/13/22 09:03 Last Admin: 05/13/22 09:13 Dose: 4 mg Documented By: DEAN Pantoprazole Sodium (Pantoprazole 40 Mg Vial) 40 mg IV NOW ONE Stop: 05/12/22 23:22 Last Admin: 05/12/22 23:45 Dose: 40 mg Documented By: PALAK Consultations Consultation #1: discussed with hospitalist, given complexity of findings on CT, recommends transfer to facility with high level of care Consultation #2: call placed to to discuss with MICU/IR/Vascular about any possible interventions for IVC to improve venous return/preload Consultation #3: [id number] - discussed with radiation oncology [facility] and we have reviewed the case, imaging and possible treatment modalities. There still is an unknown primary, and results with a tissue diagnosis are still yet unknown. We will continue work on tracking down even a preliminary result, as this will help determine whether chemotherapy or radiation is likely to be the most effective and rapid in onset Vital Signs Vital signs: Vital Signs - 8 hr 05/14/22 07:26 05/14/22 07:00 05/14/22 07:01 Temperature Pulse Rate 57 L 54 L 60 Pulse Rate [Orthostatic Lying] Pulse Rate [Orthostatic Sitting] Pulse Rate [Orthostatic Standing] Respiratory Rate 14 Blood Pressure Blood Pressure [Orthostatic Lying] Blood Pressure [Orthostatic Sitting] Blood Pressure [Orthostatic Standing] Blood Pressure [Right Arm] 116/56 L Pulse Oximetry 100 97 97 Oxygen Delivery Method Room Air 05/14/22 07:01 05/14/22 07:30 05/14/22 07:30 Temperature Pulse Rate 66 Pulse Rate [Orthostatic Lying] Pulse Rate [Orthostatic Sitting] Pulse Rate [Orthostatic Standing] Respiratory Rate Blood Pressure 116/56 L 99/55 L Blood Pressure [Orthostatic Lying] Blood Pressure [Orthostatic Sitting] Blood Pressure [Orthostatic Standing] Blood Pressure [Right Arm] Pulse Oximetry 97 Oxygen Delivery Method 05/14/22 07:59 05/14/22 11:10 05/14/22 11:03 Temperature 97.7 F Pulse Rate 62 Pulse Rate [Orthostatic Lying] 64 Pulse Rate [Orthostatic Sitting] 72 Pulse Rate [Orthostatic Standing] 87 Respiratory Rate 18 Blood Pressure 99/65 116/54 L Blood Pressure [Orthostatic Lying] 149/77 H Blood Pressure [Orthostatic Sitting] 116/54 L Blood Pressure [Orthostatic Standing] 97/42 L Blood Pressure [Right Arm] Pulse Oximetry 97 Oxygen Delivery Method Room Air 05/14/22 11:03 05/14/22 11:06 05/14/22 11:06 Temperature Pulse Rate 73 85 Pulse Rate [Orthostatic Lying] Pulse Rate [Orthostatic Sitting] Pulse Rate [Orthostatic Standing] Respiratory Rate Blood Pressure 115/55 L Blood Pressure [Orthostatic Lying] Blood Pressure [Orthostatic Sitting] Blood Pressure [Orthostatic Standing] Blood Pressure [Right Arm] Pulse Oximetry 96 98 Oxygen Delivery Method 05/14/22 11:07 05/14/22 11:07 05/14/22 11:09 Temperature Pulse Rate 77 70 Pulse Rate [Orthostatic Lying] Pulse Rate [Orthostatic Sitting] Pulse Rate [Orthostatic Standing] Respiratory Rate Blood Pressure 114/57 L Blood Pressure [Orthostatic Lying] Blood Pressure [Orthostatic Sitting] Blood Pressure [Orthostatic Standing] Blood Pressure [Right Arm] Pulse Oximetry 97 97 Oxygen Delivery Method 05/14/22 11:09 05/14/22 12:10 05/14/22 11:30 Temperature Pulse Rate Pulse Rate [Orthostatic Lying] 65 Pulse Rate [Orthostatic Sitting] 94 H Pulse Rate [Orthostatic Standing] 72 Respiratory Rate Blood Pressure 149/77 H 125/58 L Blood Pressure [Orthostatic Lying] 130/61 Blood Pressure [Orthostatic Sitting] 103/55 L Blood Pressure [Orthostatic Standing] 103/58 L Blood Pressure [Right Arm] Pulse Oximetry Oxygen Delivery Method 05/14/22 11:30 05/14/22 11:58 05/14/22 11:58 Temperature Pulse Rate 66 64 Pulse Rate [Orthostatic Lying] Pulse Rate [Orthostatic Sitting] Pulse Rate [Orthostatic Standing] Respiratory Rate Blood Pressure 130/61 Blood Pressure [Orthostatic Lying] Blood Pressure [Orthostatic Sitting] Blood Pressure [Orthostatic Standing] Blood Pressure [Right Arm] Pulse Oximetry 98 99 Oxygen Delivery Method 05/14/22 12:00 05/14/22 12:00 05/14/22 12:02 Temperature Pulse Rate 76 51 L Pulse Rate [Orthostatic Lying] Pulse Rate [Orthostatic Sitting] Pulse Rate [Orthostatic Standing] Respiratory Rate Blood Pressure 103/58 L Blood Pressure [Orthostatic Lying] Blood Pressure [Orthostatic Sitting] Blood Pressure [Orthostatic Standing] Blood Pressure [Right Arm] Pulse Oximetry 98 95 Oxygen Delivery Method 05/14/22 12:02 05/14/22 12:30 05/14/22 12:31 Temperature Pulse Rate 73 Pulse Rate [Orthostatic Lying] Pulse Rate [Orthostatic Sitting] Pulse Rate [Orthostatic Standing] Respiratory Rate Blood Pressure 103/55 L 141/63 H Blood Pressure [Orthostatic Lying] Blood Pressure [Orthostatic Sitting] Blood Pressure [Orthostatic Standing] Blood Pressure [Right Arm] Pulse Oximetry 99 Oxygen Delivery Method 05/14/22 12:31 05/14/22 13:00 05/14/22 13:00 Temperature Pulse Rate 74 69 Pulse Rate [Orthostatic Lying] Pulse Rate [Orthostatic Sitting] Pulse Rate [Orthostatic Standing] Respiratory Rate Blood Pressure 137/63 Blood Pressure [Orthostatic Lying] Blood Pressure [Orthostatic Sitting] Blood Pressure [Orthostatic Standing] Blood Pressure [Right Arm] Pulse Oximetry 98 98 Oxygen Delivery Method 05/14/22 13:19 05/14/22 13:19 05/14/22 13:30 Temperature Pulse Rate 70 Pulse Rate [Orthostatic Lying] Pulse Rate [Orthostatic Sitting] Pulse Rate [Orthostatic Standing] Respiratory Rate 16 Blood Pressure 109/57 L 134/63 Blood Pressure [Orthostatic Lying] Blood Pressure [Orthostatic Sitting] Blood Pressure [Orthostatic Standing] Blood Pressure [Right Arm] Pulse Oximetry 98 Oxygen Delivery Method 05/14/22 13:30 Temperature Pulse Rate 66 Pulse Rate [Orthostatic Lying] Pulse Rate [Orthostatic Sitting] Pulse Rate [Orthostatic Standing] Respiratory Rate 16 Blood Pressure Blood Pressure [Orthostatic Lying] Blood Pressure [Orthostatic Sitting] Blood Pressure [Orthostatic Standing] Blood Pressure [Right Arm] Pulse Oximetry 98 Oxygen Delivery Method <Aleena Portillo, - Last Filed: 05/14/22 14:41> Orders Ordered: Discontinued Medications Hydrocodone Bitart/Acetaminophen (Hydrocodone/Acet 5/325 Tablet) 2 tab PO NOW ONE Stop: 05/13/22 02:22 Last Admin: 05/13/22 02:32 Dose: 2 tab Documented By: PALAK Hydrocodone Bitart/Acetaminophen (Hydrocodone/Acet 5/325 Tablet) 2 tab PO NOW ONE Stop: 05/13/22 08:02 Last Admin: 05/13/22 08:33 Dose: 2 tab Documented By: NAOMI Hydrocodone Bitart/Acetaminophen (Hydrocodone/Acet 5/325 Tablet) 2 tab PO Q4HR PRN PRN Reason: Pain, Severe (7-10) Last Admin: 05/14/22 12:17 Dose: 2 tab Documented By: Admin: 05/14/22 07:30 Dose: 2 tab Documented By: Admin: 05/14/22 03:20 Dose: 2 tab Documented By: Admin: 05/13/22 22:24 Dose: 2 tab Documented By: Admin: 05/13/22 18:18 Dose: 2 tab Documented By: Admin: 05/13/22 14:03 Dose: 2 tab Documented By: HAM Hydrocortisone (Hydrocortisone 100 Mg/2 Ml Vial) 100 mg IV NOW ONE Stop: 05/14/22 10:14 Last Admin: 05/14/22 11:16 Dose: 100 mg Documented By: DEAN(2) Piperacillin Sod/Tazobactam (Sod 4.5 gm/ Sodium Chloride) 100 mls @ 200 mls/hr IV NOW ONE Stop: 05/12/22 23:22 Last Infusion: 05/13/22 00:35 Dose: 0 mls/hr Documented By: Admin: 05/12/22 23:43 Dose: 200 mls/hr Documented By: PALAK Sodium Chloride (Normal Saline 0.9%) 1,000 mls @ 150 mls/hr IV CONT JUAN Last Infusion: 05/14/22 14:35 Dose: 0 mls/hr Documented By: Admin: 05/14/22 11:14 Dose: 150 mls/hr Documented By: DEAN(2) Infusion: 05/14/22 07:20 Dose: 0 mls/hr Documented By: Infusion: 05/14/22 01:11 Dose: 150 mls/hr Documented By: Admin: 05/13/22 17:54 Dose: 150 mls/hr Documented By: Infusion: 05/13/22 16:56 Dose: 150 mls/hr Documented By: Admin: 05/13/22 10:15 Dose: 150 mls/hr Documented By: NAOMI Levofloxacin (Levofloxacin 250 Mg Tablet) 500 mg PO NOW ONE Stop: 05/14/22 12:30 Last Admin: 05/14/22 13:15 Dose: 500 mg Documented By: DEAN(2) Morphine Sulfate (Morphine 2 Mg/Ml Inj) 2 mg IV Q4HR PRN PRN Reason: Pain, Moderate (4-6) Last Admin: 05/13/22 10:15 Dose: 2 mg Documented By: NAOMI Ondansetron HCl (Ondansetron 4 Mg/2 Ml Inj) 4 mg IV NOW ONE Stop: 05/13/22 09:03 Last Admin: 05/13/22 09:13 Dose: 4 mg Documented By: DEAN Pantoprazole Sodium (Pantoprazole 40 Mg Vial) 40 mg IV NOW ONE Stop: 05/12/22 23:22 Last Admin: 05/12/22 23:45 Dose: 40 mg Documented By: PALAK Vital Signs Vital signs: Vital Signs - 8 hr 05/14/22 07:26 05/14/22 07:00 05/14/22 07:01 Temperature Pulse Rate 57 L 54 L 60 Pulse Rate [Orthostatic Lying] Pulse Rate [Orthostatic Sitting] Pulse Rate [Orthostatic Standing] Respiratory Rate 14 Blood Pressure Blood Pressure [Orthostatic Lying] Blood Pressure [Orthostatic Sitting] Blood Pressure [Orthostatic Standing] Blood Pressure [Right Arm] 116/56 L Pulse Oximetry 100 97 97 Oxygen Delivery Method Room Air 05/14/22 07:01 05/14/22 07:30 05/14/22 07:30 Temperature Pulse Rate 66 Pulse Rate [Orthostatic Lying] Pulse Rate [Orthostatic Sitting] Pulse Rate [Orthostatic Standing] Respiratory Rate Blood Pressure 116/56 L 99/55 L Blood Pressure [Orthostatic Lying] Blood Pressure [Orthostatic Sitting] Blood Pressure [Orthostatic Standing] Blood Pressure [Right Arm] Pulse Oximetry 97 Oxygen Delivery Method 05/14/22 07:59 05/14/22 11:10 05/14/22 11:03 Temperature 97.7 F Pulse Rate 62 Pulse Rate [Orthostatic Lying] 64 Pulse Rate [Orthostatic Sitting] 72 Pulse Rate [Orthostatic Standing] 87 Respiratory Rate 18 Blood Pressure 99/65 116/54 L Blood Pressure [Orthostatic Lying] 149/77 H Blood Pressure [Orthostatic Sitting] 116/54 L Blood Pressure [Orthostatic Standing] 97/42 L Blood Pressure [Right Arm] Pulse Oximetry 97 Oxygen Delivery Method Room Air 05/14/22 11:03 05/14/22 11:06 05/14/22 11:06 Temperature Pulse Rate 73 85 Pulse Rate [Orthostatic Lying] Pulse Rate [Orthostatic Sitting] Pulse Rate [Orthostatic Standing] Respiratory Rate Blood Pressure 115/55 L Blood Pressure [Orthostatic Lying] Blood Pressure [Orthostatic Sitting] Blood Pressure [Orthostatic Standing] Blood Pressure [Right Arm] Pulse Oximetry 96 98 Oxygen Delivery Method 05/14/22 11:07 05/14/22 11:07 05/14/22 11:09 Temperature Pulse Rate 77 70 Pulse Rate [Orthostatic Lying] Pulse Rate [Orthostatic Sitting] Pulse Rate [Orthostatic Standing] Respiratory Rate Blood Pressure 114/57 L Blood Pressure [Orthostatic Lying] Blood Pressure [Orthostatic Sitting] Blood Pressure [Orthostatic Standing] Blood Pressure [Right Arm] Pulse Oximetry 97 97 Oxygen Delivery Method 05/14/22 11:09 05/14/22 12:10 05/14/22 11:30 Temperature Pulse Rate Pulse Rate [Orthostatic Lying] 65 Pulse Rate [Orthostatic Sitting] 94 H Pulse Rate [Orthostatic Standing] 72 Respiratory Rate Blood Pressure 149/77 H 125/58 L Blood Pressure [Orthostatic Lying] 130/61 Blood Pressure [Orthostatic Sitting] 103/55 L Blood Pressure [Orthostatic Standing] 103/58 L Blood Pressure [Right Arm] Pulse Oximetry Oxygen Delivery Method 05/14/22 11:30 05/14/22 11:58 05/14/22 11:58 Temperature Pulse Rate 66 64 Pulse Rate [Orthostatic Lying] Pulse Rate [Orthostatic Sitting] Pulse Rate [Orthostatic Standing] Respiratory Rate Blood Pressure 130/61 Blood Pressure [Orthostatic Lying] Blood Pressure [Orthostatic Sitting] Blood Pressure [Orthostatic Standing] Blood Pressure [Right Arm] Pulse Oximetry 98 99 Oxygen Delivery Method 05/14/22 12:00 05/14/22 12:00 05/14/22 12:02 Temperature Pulse Rate 76 51 L Pulse Rate [Orthostatic Lying] Pulse Rate [Orthostatic Sitting] Pulse Rate [Orthostatic Standing] Respiratory Rate Blood Pressure 103/58 L Blood Pressure [Orthostatic Lying] Blood Pressure [Orthostatic Sitting] Blood Pressure [Orthostatic Standing] Blood Pressure [Right Arm] Pulse Oximetry 98 95 Oxygen Delivery Method 05/14/22 12:02 05/14/22 12:30 05/14/22 12:31 Temperature Pulse Rate 73 Pulse Rate [Orthostatic Lying] Pulse Rate [Orthostatic Sitting] Pulse Rate [Orthostatic Standing] Respiratory Rate Blood Pressure 103/55 L 141/63 H Blood Pressure [Orthostatic Lying] Blood Pressure [Orthostatic Sitting] Blood Pressure [Orthostatic Standing] Blood Pressure [Right Arm] Pulse Oximetry 99 Oxygen Delivery Method 05/14/22 12:31 05/14/22 13:00 05/14/22 13:00 Temperature Pulse Rate 74 69 Pulse Rate [Orthostatic Lying] Pulse Rate [Orthostatic Sitting] Pulse Rate [Orthostatic Standing] Respiratory Rate Blood Pressure 137/63 Blood Pressure [Orthostatic Lying] Blood Pressure [Orthostatic Sitting] Blood Pressure [Orthostatic Standing] Blood Pressure [Right Arm] Pulse Oximetry 98 98 Oxygen Delivery Method 05/14/22 13:19 05/14/22 13:19 05/14/22 13:30 Temperature Pulse Rate 70 Pulse Rate [Orthostatic Lying] Pulse Rate [Orthostatic Sitting] Pulse Rate [Orthostatic Standing] Respiratory Rate 16 Blood Pressure 109/57 L 134/63 Blood Pressure [Orthostatic Lying] Blood Pressure [Orthostatic Sitting] Blood Pressure [Orthostatic Standing] Blood Pressure [Right Arm] Pulse Oximetry 98 Oxygen Delivery Method 05/14/22 13:30 Temperature Pulse Rate 66 Pulse Rate [Orthostatic Lying] Pulse Rate [Orthostatic Sitting] Pulse Rate [Orthostatic Standing] Respiratory Rate 16 Blood Pressure Blood Pressure [Orthostatic Lying] Blood Pressure [Orthostatic Sitting] Blood Pressure [Orthostatic Standing] Blood Pressure [Right Arm] Pulse Oximetry 98 Oxygen Delivery Method MDM - SOB/Dyspnea <Thomas Galeas, DO - Last Filed: 05/15/22 04:05> Lab Data Result diagrams: 05/14/22 08:47 05/14/22 08:47 Labs: Lab Results 05/12/22 05/12/22 05/12/22 Range/Units 22:20 22:20 22:20 WBC 10.4 (4.5-11.0) X10^3/uL RBC 2.43 L (4.5-5.9) X10^6/uL Hgb 8.4 L (13.5-17.5) g/dL Hct 24.5 L (41-53) % MCV 101.1 H (80-100) fL MCH 34.4 H (26-34) PG MCHC 34.1 (30-36) % RDW 14.3 (11.6-14.8) % Plt Count 309 (150-400) X10^3/uL Neut % (Auto) 78.7 H (50-75) % Lymph % (Auto) 10.0 L (25-40) % [place] % (Auto) 10.7 (3-14) % Eos % (Auto) 0.4 L (2-4) % Baso % (Auto) 0.2 (0-2) % Neut # (Auto) 8200 H (5178-1472) /uL Lymph # (Auto) 1000 L (7261-6112) /uL [place] # (Auto) 1100 H (0-900) /uL Eos # (Auto) 0 (0-450) /uL Baso # (Auto) 0 (0-100) /uL Sodium 134 L (137-145) mmol/L Potassium 3.5 (3.4-5.1) mmol/L Chloride 102 (98-107) mmol/L Carbon Dioxide 19 L (22-32) mmol/L BUN 34 H (9-20) mg/dL Creatinine 0.77 (0.66-1.25) mg/dL Estimated GFR > 60 (>60) mL/min BUN/Creatinine Ratio 44.2 H (6-22) Glucose 117 H (80-110) mg/dL Lactate 1.6 (0.7-2.1) mmol/L Calcium 9.4 (8.4-10.2) mg/dL Magnesium 1.9 (1.6-2.3) mg/dL Total Bilirubin 0.4 (0.2-1.3) mg/dL AST 44 (17-59) IU/L ALT 16 (<50) IU/L Alkaline Phosphatase 102 (38-126) U/L Total Creatine Kinase 24 L (55-170) U/L CK-MB (CK-2) TNP CK-MB (CK-2) Rel Index TNP Troponin I < 0.012 (0.01-0.034) ng/mL Total Protein 8.2 (6.3-8.2) g/dL Albumin 3.9 (3.5-5.0) g/dL Globulin 4.3 H (1.7-4.1) g/dL Albumin/Globulin Ratio 0.9 L (1.0-2.8) Lipase 100 (23-300) U/L Urine Color Urine Appearance Urine pH (4.5-8.0) Ur Specific [place] (1.000-1.035) Urine Protein (Negative) Urine Glucose (UA) (Negative) g/dL Urine Ketones (NEGATIVE) Urine Occult Blood (Negative) Urine Nitrate (Negative) Urine Bilirubin (NEGATIVE) Urine Urobilinogen (0.2) E.U./dL Ur Leukocyte Esterase (NEGATIVE) Urine RBC (0-5/HPF) Urine WBC (0-5/HPF) Ur Squamous Epith Cells (0-5/HPF) Urine Bacteria (None) Ur Culture Indicated? SARS-CoV-2 (PCR) (Negative) Blood Type Antibody Screen Crossmatch 05/12/22 05/12/22 05/13/22 Range/Units 22:33 23:00 00:40 WBC (4.5-11.0) X10^3/uL RBC (4.5-5.9) X10^6/uL Hgb 7.5 L (13.5-17.5) g/dL Hct 22.1 L (41-53) % MCV (80-100) fL MCH (26-34) PG MCHC (30-36) % RDW (11.6-14.8) % Plt Count (150-400) X10^3/uL Neut % (Auto) (50-75) % Lymph % (Auto) (25-40) % [place] % (Auto) (3-14) % Eos % (Auto) (2-4) % Baso % (Auto) (0-2) % Neut # (Auto) (1922-9447) /uL Lymph # (Auto) (0790-1134) /uL [place] # (Auto) (0-900) /uL Eos # (Auto) (0-450) /uL Baso # (Auto) (0-100) /uL Sodium (137-145) mmol/L Potassium (3.4-5.1) mmol/L Chloride (98-107) mmol/L Carbon Dioxide (22-32) mmol/L BUN (9-20) mg/dL Creatinine (0.66-1.25) mg/dL Estimated GFR (>60) mL/min BUN/Creatinine Ratio (6-22) Glucose (80-110) mg/dL Lactate (0.7-2.1) mmol/L Calcium (8.4-10.2) mg/dL Magnesium (1.6-2.3) mg/dL Total Bilirubin (0.2-1.3) mg/dL AST (17-59) IU/L ALT (<50) IU/L Alkaline Phosphatase (38-126) U/L Total Creatine Kinase (55-170) U/L CK-MB (CK-2) CK-MB (CK-2) Rel Index Troponin I (0.01-0.034) ng/mL Total Protein (6.3-8.2) g/dL Albumin (3.5-5.0) g/dL Globulin (1.7-4.1) g/dL Albumin/Globulin Ratio (1.0-2.8) Lipase (23-300) U/L Urine Color Urine Appearance Urine pH (4.5-8.0) Ur Specific [place] (1.000-1.035) Urine Protein (Negative) Urine Glucose (UA) (Negative) g/dL Urine Ketones (NEGATIVE) Urine Occult Blood (Negative) Urine Nitrate (Negative) Urine Bilirubin (NEGATIVE) Urine Urobilinogen (0.2) E.U./dL Ur Leukocyte Esterase (NEGATIVE) Urine RBC (0-5/HPF) Urine WBC (0-5/HPF) Ur Squamous Epith Cells (0-5/HPF) Urine Bacteria (None) Ur Culture Indicated? SARS-CoV-2 (PCR) Negative (Negative) Blood Type O Positive Antibody Screen Negative Crossmatch See Detail 05/13/22 05/13/22 05/13/22 Range/Units 10:15 10:15 13:42 WBC (4.5-11.0) X10^3/uL RBC (4.5-5.9) X10^6/uL Hgb 9.2 L (13.5-17.5) g/dL Hct 26.5 L (41-53) % MCV (80-100) fL MCH (26-34) PG MCHC (30-36) % RDW (11.6-14.8) % Plt Count (150-400) X10^3/uL Neut % (Auto) (50-75) % Lymph % (Auto) (25-40) % [place] % (Auto) (3-14) % Eos % (Auto) (2-4) % Baso % (Auto) (0-2) % Neut # (Auto) (6108-2443) /uL Lymph # (Auto) (7452-6219) /uL [place] # (Auto) (0-900) /uL Eos # (Auto) (0-450) /uL Baso # (Auto) (0-100) /uL Sodium (137-145) mmol/L Potassium (3.4-5.1) mmol/L Chloride (98-107) mmol/L Carbon Dioxide (22-32) mmol/L BUN (9-20) mg/dL Creatinine (0.66-1.25) mg/dL Estimated GFR (>60) mL/min BUN/Creatinine Ratio (6-22) Glucose (80-110) mg/dL Lactate 1.4 (0.7-2.1) mmol/L Calcium (8.4-10.2) mg/dL Magnesium (1.6-2.3) mg/dL Total Bilirubin (0.2-1.3) mg/dL AST (17-59) IU/L ALT (<50) IU/L Alkaline Phosphatase (38-126) U/L Total Creatine Kinase (55-170) U/L CK-MB (CK-2) CK-MB (CK-2) Rel Index Troponin I (0.01-0.034) ng/mL Total Protein (6.3-8.2) g/dL Albumin (3.5-5.0) g/dL Globulin (1.7-4.1) g/dL Albumin/Globulin Ratio (1.0-2.8) Lipase (23-300) U/L Urine Color Yellow Urine Appearance Clear Urine pH 6.5 (4.5-8.0) Ur Specific [place] 1.010 (1.000-1.035) Urine Protein 1+ H (Negative) Urine Glucose (UA) Negative (Negative) g/dL Urine Ketones Negative (NEGATIVE) Urine Occult Blood Trace-lysed (Negative) Urine Nitrate Positive H (Negative) Urine Bilirubin Negative (NEGATIVE) Urine Urobilinogen 0.2 (0.2) E.U./dL Ur Leukocyte Esterase Trace H (NEGATIVE) Urine RBC None seen (0-5/HPF) Urine WBC 1-5/hpf (0-5/HPF) Ur Squamous Epith Cells 1-5 /hpf (0-5/HPF) Urine Bacteria None seen (None) Ur Culture Indicated? Specimen cultured SARS-CoV-2 (PCR) (Negative) Blood Type Antibody Screen Crossmatch 05/14/22 05/14/22 Range/Units 08:47 08:47 WBC 5.8 (4.5-11.0) X10^3/uL RBC 2.66 L (4.5-5.9) X10^6/uL Hgb 8.8 L (13.5-17.5) g/dL Hct 25.8 L (41-53) % MCV 97.3 D (80-100) fL MCH 33.0 (26-34) PG MCHC 33.9 (30-36) % RDW 18.2 H (11.6-14.8) % Plt Count 220 (150-400) X10^3/uL Neut % (Auto) 72.5 (50-75) % Lymph % (Auto) 10.7 L (25-40) % [place] % (Auto) 14.1 H (3-14) % Eos % (Auto) 2.0 (2-4) % Baso % (Auto) 0.7 (0-2) % Neut # (Auto) 4200 (5151-1205) /uL Lymph # (Auto) 600 L (2621-6373) /uL [place] # (Auto) 800 (0-900) /uL Eos # (Auto) 100 (0-450) /uL Baso # (Auto) 0 (0-100) /uL Sodium 135 L (137-145) mmol/L Potassium 4.2 (3.4-5.1) mmol/L Chloride 107 (98-107) mmol/L Carbon Dioxide 23 (22-32) mmol/L BUN 19 (9-20) mg/dL Creatinine 0.63 L (0.66-1.25) mg/dL Estimated GFR > 60 (>60) mL/min BUN/Creatinine Ratio 30.2 H (6-22) Glucose 116 H (80-110) mg/dL Lactate (0.7-2.1) mmol/L Calcium 8.4 (8.4-10.2) mg/dL Magnesium (1.6-2.3) mg/dL Total Bilirubin 0.6 (0.2-1.3) mg/dL AST 35 (17-59) IU/L ALT 12 (<50) IU/L Alkaline Phosphatase 82 (38-126) U/L Total Creatine Kinase (55-170) U/L CK-MB (CK-2) CK-MB (CK-2) Rel Index Troponin I (0.01-0.034) ng/mL Total Protein 6.7 (6.3-8.2) g/dL Albumin 2.9 L (3.5-5.0) g/dL Globulin 3.8 (1.7-4.1) g/dL Albumin/Globulin Ratio 0.8 L (1.0-2.8) Lipase (23-300) U/L Urine Color Urine Appearance Urine pH (4.5-8.0) Ur Specific [place] (1.000-1.035) Urine Protein (Negative) Urine Glucose (UA) (Negative) g/dL Urine Ketones (NEGATIVE) Urine Occult Blood (Negative) Urine Nitrate (Negative) Urine Bilirubin (NEGATIVE) Urine Urobilinogen (0.2) E.U./dL Ur Leukocyte Esterase (NEGATIVE) Urine RBC (0-5/HPF) Urine WBC (0-5/HPF) Ur Squamous Epith Cells (0-5/HPF) Urine Bacteria (None) Ur Culture Indicated? SARS-CoV-2 (PCR) (Negative) Blood Type Antibody Screen Crossmatch <Aleena Portillo, DO - Last Filed: 05/14/22 14:41> Lab Data Labs: Lab Results 05/12/22 05/12/22 05/12/22 Range/Units 22:20 22:20 22:20 WBC 10.4 (4.5-11.0) X10^3/uL RBC 2.43 L (4.5-5.9) X10^6/uL Hgb 8.4 L (13.5-17.5) g/dL Hct 24.5 L (41-53) % MCV 101.1 H (80-100) fL MCH 34.4 H (26-34) PG MCHC 34.1 (30-36) % RDW 14.3 (11.6-14.8) % Plt Count 309 (150-400) X10^3/uL Neut % (Auto) 78.7 H (50-75) % Lymph % (Auto) 10.0 L (25-40) % [place] % (Auto) 10.7 (3-14) % Eos % (Auto) 0.4 L (2-4) % Baso % (Auto) 0.2 (0-2) % Neut # (Auto) 8200 H (6875-4217) /uL Lymph # (Auto) 1000 L (3607-8796) /uL [place] # (Auto) 1100 H (0-900) /uL Eos # (Auto) 0 (0-450) /uL Baso # (Auto) 0 (0-100) /uL Sodium 134 L (137-145) mmol/L Potassium 3.5 (3.4-5.1) mmol/L Chloride 102 (98-107) mmol/L Carbon Dioxide 19 L (22-32) mmol/L BUN 34 H (9-20) mg/dL Creatinine 0.77 (0.66-1.25) mg/dL Estimated GFR > 60 (>60) mL/min BUN/Creatinine Ratio 44.2 H (6-22) Glucose 117 H (80-110) mg/dL Lactate 1.6 (0.7-2.1) mmol/L Calcium 9.4 (8.4-10.2) mg/dL Magnesium 1.9 (1.6-2.3) mg/dL Total Bilirubin 0.4 (0.2-1.3) mg/dL AST 44 (17-59) IU/L ALT 16 (<50) IU/L Alkaline Phosphatase 102 (38-126) U/L Total Creatine Kinase 24 L (55-170) U/L CK-MB (CK-2) TNP CK-MB (CK-2) Rel Index TNP Troponin I < 0.012 (0.01-0.034) ng/mL Total Protein 8.2 (6.3-8.2) g/dL Albumin 3.9 (3.5-5.0) g/dL Globulin 4.3 H (1.7-4.1) g/dL Albumin/Globulin Ratio 0.9 L (1.0-2.8) Lipase 100 (23-300) U/L Urine Color Urine Appearance Urine pH (4.5-8.0) Ur Specific [place] (1.000-1.035) Urine Protein (Negative) Urine Glucose (UA) (Negative) g/dL Urine Ketones (NEGATIVE) Urine Occult Blood (Negative) Urine Nitrate (Negative) Urine Bilirubin (NEGATIVE) Urine Urobilinogen (0.2) E.U./dL Ur Leukocyte Esterase (NEGATIVE) Urine RBC (0-5/HPF) Urine WBC (0-5/HPF) Ur Squamous Epith Cells (0-5/HPF) Urine Bacteria (None) Ur Culture Indicated? SARS-CoV-2 (PCR) (Negative) Blood Type Antibody Screen Crossmatch 05/12/22 05/12/22 05/13/22 Range/Units 22:33 23:00 00:40 WBC (4.5-11.0) X10^3/uL RBC (4.5-5.9) X10^6/uL Hgb 7.5 L (13.5-17.5) g/dL Hct 22.1 L (41-53) % MCV (80-100) fL MCH (26-34) PG MCHC (30-36) % RDW (11.6-14.8) % Plt Count (150-400) X10^3/uL Neut % (Auto) (50-75) % Lymph % (Auto) (25-40) % [place] % (Auto) (3-14) % Eos % (Auto) (2-4) % Baso % (Auto) (0-2) % Neut # (Auto) (5792-8648) /uL Lymph # (Auto) (4232-2749) /uL [place] # (Auto) (0-900) /uL Eos # (Auto) (0-450) /uL Baso # (Auto) (0-100) /uL Sodium (137-145) mmol/L Potassium (3.4-5.1) mmol/L Chloride (98-107) mmol/L Carbon Dioxide (22-32) mmol/L BUN (9-20) mg/dL Creatinine (0.66-1.25) mg/dL Estimated GFR (>60) mL/min BUN/Creatinine Ratio (6-22) Glucose (80-110) mg/dL Lactate (0.7-2.1) mmol/L Calcium (8.4-10.2) mg/dL Magnesium (1.6-2.3) mg/dL Total Bilirubin (0.2-1.3) mg/dL AST (17-59) IU/L ALT (<50) IU/L Alkaline Phosphatase (38-126) U/L Total Creatine Kinase (55-170) U/L CK-MB (CK-2) CK-MB (CK-2) Rel Index Troponin I (0.01-0.034) ng/mL Total Protein (6.3-8.2) g/dL Albumin (3.5-5.0) g/dL Globulin (1.7-4.1) g/dL Albumin/Globulin Ratio (1.0-2.8) Lipase (23-300) U/L Urine Color Urine Appearance Urine pH (4.5-8.0) Ur Specific [place] (1.000-1.035) Urine Protein (Negative) Urine Glucose (UA) (Negative) g/dL Urine Ketones (NEGATIVE) Urine Occult Blood (Negative) Urine Nitrate (Negative) Urine Bilirubin (NEGATIVE) Urine Urobilinogen (0.2) E.U./dL Ur Leukocyte Esterase (NEGATIVE) Urine RBC (0-5/HPF) Urine WBC (0-5/HPF) Ur Squamous Epith Cells (0-5/HPF) Urine Bacteria (None) Ur Culture Indicated? SARS-CoV-2 (PCR) Negative (Negative) Blood Type O Positive Antibody Screen Negative Crossmatch See Detail 05/13/22 05/13/22 05/13/22 Range/Units 10:15 10:15 13:42 WBC (4.5-11.0) X10^3/uL RBC (4.5-5.9) X10^6/uL Hgb 9.2 L (13.5-17.5) g/dL Hct 26.5 L (41-53) % MCV (80-100) fL MCH (26-34) PG MCHC (30-36) % RDW (11.6-14.8) % Plt Count (150-400) X10^3/uL Neut % (Auto) (50-75) % Lymph % (Auto) (25-40) % [place] % (Auto) (3-14) % Eos % (Auto) (2-4) % Baso % (Auto) (0-2) % Neut # (Auto) (1841-9054) /uL Lymph # (Auto) (4771-3690) /uL [place] # (Auto) (0-900) /uL Eos # (Auto) (0-450) /uL Baso # (Auto) (0-100) /uL Sodium (137-145) mmol/L Potassium (3.4-5.1) mmol/L Chloride (98-107) mmol/L Carbon Dioxide (22-32) mmol/L BUN (9-20) mg/dL Creatinine (0.66-1.25) mg/dL Estimated GFR (>60) mL/min BUN/Creatinine Ratio (6-22) Glucose (80-110) mg/dL Lactate 1.4 (0.7-2.1) mmol/L Calcium (8.4-10.2) mg/dL Magnesium (1.6-2.3) mg/dL Total Bilirubin (0.2-1.3) mg/dL AST (17-59) IU/L ALT (<50) IU/L Alkaline Phosphatase (38-126) U/L Total Creatine Kinase (55-170) U/L CK-MB (CK-2) CK-MB (CK-2) Rel Index Troponin I (0.01-0.034) ng/mL Total Protein (6.3-8.2) g/dL Albumin (3.5-5.0) g/dL Globulin (1.7-4.1) g/dL Albumin/Globulin Ratio (1.0-2.8) Lipase (23-300) U/L Urine Color Yellow Urine Appearance Clear Urine pH 6.5 (4.5-8.0) Ur Specific [place] 1.010 (1.000-1.035) Urine Protein 1+ H (Negative) Urine Glucose (UA) Negative (Negative) g/dL Urine Ketones Negative (NEGATIVE) Urine Occult Blood Trace-lysed (Negative) Urine Nitrate Positive H (Negative) Urine Bilirubin Negative (NEGATIVE) Urine Urobilinogen 0.2 (0.2) E.U./dL Ur Leukocyte Esterase Trace H (NEGATIVE) Urine RBC None seen (0-5/HPF) Urine WBC 1-5/hpf (0-5/HPF) Ur Squamous Epith Cells 1-5 /hpf (0-5/HPF) Urine Bacteria None seen (None) Ur Culture Indicated? Specimen cultured SARS-CoV-2 (PCR) (Negative) Blood Type Antibody Screen Crossmatch 05/14/22 05/14/22 Range/Units 08:47 08:47 WBC 5.8 (4.5-11.0) X10^3/uL RBC 2.66 L (4.5-5.9) X10^6/uL Hgb 8.8 L (13.5-17.5) g/dL Hct 25.8 L (41-53) % MCV 97.3 D (80-100) fL MCH 33.0 (26-34) PG MCHC 33.9 (30-36) % RDW 18.2 H (11.6-14.8) % Plt Count 220 (150-400) X10^3/uL Neut % (Auto) 72.5 (50-75) % Lymph % (Auto) 10.7 L (25-40) % [place] % (Auto) 14.1 H (3-14) % Eos % (Auto) 2.0 (2-4) % Baso % (Auto) 0.7 (0-2) % Neut # (Auto) 4200 (9542-4225) /uL Lymph # (Auto) 600 L (5756-9911) /uL [place] # (Auto) 800 (0-900) /uL Eos # (Auto) 100 (0-450) /uL Baso # (Auto) 0 (0-100) /uL Sodium 135 L (137-145) mmol/L Potassium 4.2 (3.4-5.1) mmol/L Chloride 107 (98-107) mmol/L Carbon Dioxide 23 (22-32) mmol/L BUN 19 (9-20) mg/dL Creatinine 0.63 L (0.66-1.25) mg/dL Estimated GFR > 60 (>60) mL/min BUN/Creatinine Ratio 30.2 H (6-22) Glucose 116 H (80-110) mg/dL Lactate (0.7-2.1) mmol/L Calcium 8.4 (8.4-10.2) mg/dL Magnesium (1.6-2.3) mg/dL Total Bilirubin 0.6 (0.2-1.3) mg/dL AST 35 (17-59) IU/L ALT 12 (<50) IU/L Alkaline Phosphatase 82 (38-126) U/L Total Creatine Kinase (55-170) U/L CK-MB (CK-2) CK-MB (CK-2) Rel Index Troponin I (0.01-0.034) ng/mL Total Protein 6.7 (6.3-8.2) g/dL Albumin 2.9 L (3.5-5.0) g/dL Globulin 3.8 (1.7-4.1) g/dL Albumin/Globulin Ratio 0.8 L (1.0-2.8) Lipase (23-300) U/L Urine Color Urine Appearance Urine pH (4.5-8.0) Ur Specific [place] (1.000-1.035) Urine Protein (Negative) Urine Glucose (UA) (Negative) g/dL Urine Ketones (NEGATIVE) Urine Occult Blood (Negative) Urine Nitrate (Negative) Urine Bilirubin (NEGATIVE) Urine Urobilinogen (0.2) E.U./dL Ur Leukocyte Esterase (NEGATIVE) Urine RBC (0-5/HPF) Urine WBC (0-5/HPF) Ur Squamous Epith Cells (0-5/HPF) Urine Bacteria (None) Ur Culture Indicated? SARS-CoV-2 (PCR) (Negative) Blood Type Antibody Screen Crossmatch Imaging Data CT scan - abdomen/pelvis: Radiologist's Impression: [address] [place] [address] CT Scan Report Signed Patient: Maged Avitia Jr MR#: [id number] : 1940 Acct:[id number] Age/Sex: 81 / M Date of Service: 05/12/22 Loc: ED Accession Number: [id number] ?? Procedure: CT chest abd pel w con Ordering Provider: Thomas Galeas D.O. PROCEDURE:? CT CHEST ABD PEL W CON ? INDICATIONS:? dizzy, weak, lightheaded, BP in 70s, recent liver biopsy ? TECHNIQUE:? After the administration of intravenous contrast, 5 mm thick sections acquired from the lung apices to the symphysis.? 2.5 mm thick coronal and sagittal reformats were acquired. ?Additional 7 mm thick coronal maximum intensity projection (MIP) reformats acquired through the lungs.? Optional 10-minute delayed imaging may be performed from the kidneys to the bladder.? For radiation dose reduction, the following was used:? automated exposure control, adjustment of mA and/or kV according to patient size.? ? COMPARISON:? [facility], CT, CT CHEST ABD PEL W CON, 04/14/2022, 6:23. ? FINDINGS:? ? No acute consolidation.? Scattered pulmonary nodules are unchanged from prior study.? Superior left upper lobe nodule measuring 6 mm is unchanged.? Emphysema and findings of COPD redemonstrated.? No pleural effusion or pneumothorax. Normal heart size.? Median sternotomy changes.? Four-vessel coronary atherosclerosis.? No pericardial effusion.? No threshold enlarged mediastinal or hilar lymph node.? Enlarged main pulmonary artery.? 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 Moderate ectasia of the ascending thoracic aorta is also unchanged.? No hiatal hernia. ? Bulky retroperitoneal lymphadenopathy is significantly increased when compared with 04/14/2022 exam.? Mass effect on the IVC and renal vasculature has worsened, both displaced and narrowed to a large degree when compared with the prior study.? In particular the IVC is narrowed to a slit like diameter with suspected compromise in venous return. ? No abnormally dilated or thickened loop of bowel.? No pericolonic or mesenteric inflammatory changes.? Likely metastatic lesions in the liver are not significantly changed.? Spleen unremarkable.? New adreniform thickening.? No acute finding in the kidneys.? Gallbladder mildly distended but without findings suspicious for cholecystitis. ? Urinary bladder decompressed by a Ventura catheter.? Mild prostatomegaly.? No acute or suspicious osseous lesion. ? IMPRESSION:? ? Significantly increased bulky retroperitoneal and central abdominal lymphadenopathy with worsened mass effect on the renal veins and IVC.? When combined with the provided clinical history, the findings suggest some combination of decreased venous return to the heart as well as possible decreased renal fluid resorption resulting in hypovolemia. ? Metastatic hepatic mass is not significantly changed. ? Multiple pulmonary nodules suspicious for metastatic lesions are also unchanged. ? Remaining chronic findings are similar. ? Dictated by: Jayro Sullivan M.D. on 05/12/2022 at 22:57 ? ? ECG Data Interpretation: Normal sinus rhythm rate 100 p.r. interval 156 QRS 1 QTC 438 similar to previous MDM Narrative Medical decision making narrative: Patient signed out to me by Dr. Galeas of to evaluate patient myself. He still does not feel well. He came in hypotensive mildly anemic weakly guaiac positive. He was given 2 units of packed red blood cells. CT scan does show increased retro peritoneal adenopathy with mass effect on renal veins and IVC. He is supposed to have a conversation with oncology about his options. But still waiting for biopsy result 1000-Dr. Encinas oncology who is on-call for his oncologist does not recommend any emergent chemotherapy him recommends fluid hydration not sure that IVC compression is causing symptoms 1100 Dr Martínez, vascular surgery consulted to from [facility]. At this time does not recommend any sort of intervention recommends medical oncology workup 05/14/22 [place] Patient remains today in the emergency department. Multiple efforts yesterday made trying to get him what he needs. Unable to track down the liver biopsy results that were done last week they were sent to [facility]. The patient does have obvious orthostatic hypotension every time he stands up his gets dizzy lightheaded and blood pressure drops. While sitting and resting in bed he is awake alert oriented and very pleasant. He has no complaints. Trying to get patient to his oncologist possible no radiation and started chemotherapy to help with tumor debulking. Multiple vascular surgeons had no need for emergent stenting. Patient was actually supposed to have a PET scan today but they called him this morning and told may had to cancel it due to the known have the right chemical or dye. Otherwise we would have made arrangements for him to have his PET scan which was supposed to be here. GENERAL: Very pleasant well-appearing 81-year-old male HEENT: Head atraumatic,EOMI, pupils reactive, face symmetric, moist mucous membranes CARDIOVASCULAR: Regular rate and rhythm without murmurs, rubs or gallops. RESPIRATORY: Breath sounds equal bilaterally, no wheezes rales or rhonchi. EXTREMITIES: Normal range of motion, no clubbing or edema. Neurovascularly intact NEUROLOGICAL: Alert and oriented x4 SKIN: Warm, dry, no laceration, no petechiae, no rashes or lesions. A/P 1. Hypotension, orthostatic. Now resolved. 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 Morales today, -continue to try and transfer, perferably to [facility] where his doctors are. -Monitor BP 2. Cancer -find biopsy results or try and get preliminary 3. Anemia check labs 4. UTI-nitrates in urine on 05/13, previously on levofloxacin 500 mg is from 05/07 to 05/12 -microbiology no growth after 24 hours I did contact and speak with Dr. Villalpando. He recommended hydrocortisone and case he had some sort of adrenal insufficiency. Patient did have very positive orthostatics again in the emergency department before the hydrocortisone. They were rechecked afterwards (about 45 minutes) and remained the same. Dr. Zimmerman has [facility] abates patient symptoms test results and kindly accepts Critical Care Time <Thomas Galeas DO - Last Filed: 05/15/22 04:05> Critical Care Time Critical Care Time: Yes Total Critical Care Time: 60 Attestation: The high probability of a clinically significant, sudden or life threatening deterioration of the [CV] system(s) required my full and direct attention, intervention and personal management. The aggregate critical care time was [60] minutes. This time is in addition to time spent performing reported procedures but includes the following: [x] Data Review and interpretation [x] Patient assessment and monitoring of vital signs [x] Documentation [x] Medication orders and management Discharge Plan Departure Patient Disposition: [facility] Clinical Impression: Inferior vena cava syndrome Prescriptions: No Action (DME) Disabled Parking Pass Qty: 1 0RF Dose Instruction: As directed Rx Instructions: As directed (DME) compound cream as below See Rx Instructions .Route .MEDSUPPLY Qty: 180 5RF Dose Instruction: APPLY 1 TO 2 PUMPS ( 1 TO 2 GRAMS) TOPICALLY UP TO 3 TIMES A DAY IF NEEDED FOR PAIN Rx Instructions: APPLY 1 TO 2 PUMPS ( 1 TO 2 GRAMS) TOPICALLY UP TO 3 TIMES A DAY IF NEEDED FOR PAIN, ok to make without cetyl myristoleate (09/11/2020). albuterol sulfate 90 mcg/actuation HFA aerosol inhaler See Rx Instructions .ROUTE .COMPLEX Qty: 54 3RF Dose Instruction: INHALE 2 PUFFS BY MOUTH EVERY 6 HOURS NEEDED FOR SHORTNESS OF BREATH OR WHEEZING Rx Instructions: INHALE 2 PUFFS BY MOUTH EVERY 6 HOURS NEEDED FOR SHORTNESS OF BREATH OR WHEEZING buprenorphine 20 mcg/hour patch weekly 1 patch transdermal QWEEK Qty: 4 5RF Rx Instructions: PA approved 10/19/21-10/18/22 fluticasone propion-salmeterol 250-50 mcg/dose blister with device See Rx Instructions .ROUTE .COMPLEX Qty: 180 2RF Dose Instruction: INHALE 1 PUFF TWICE DAILY Rx Instructions: INHALE 1 PUFF TWICE DAILY hydrocodone-acetaminophen 5-325 mg tablet See Rx Instructions PO Q4-6H PRN (Reason: pain) Qty: 300 0RF Rx Instructions: take 1-2 tablets, PO every 4-6 hours PRN; nitroglycerin [Nitrostat] 0.4 mg tablet, sublingual 0.4 mg SL Q5-15M PRN (Reason: Chest Pain) CMP [facility] 09/18/2/3/6/2% See Rx Instructions .ROUTE .COMPLEX Qty: 200 0RF Dose Instruction: APPLY 1 TO 2 PUMPS ( 1 TO 2 GRAMS) TOPICALLY UP TO 3 TIMES A DAY IF NEEDED FOR PAIN Rx Instructions: APPLY 1 TO 2 PUMPS ( 1 TO 2 GRAMS) TOPICALLY UP TO 3 TIMES A DAY IF NEEDED FOR PAIN meclizine 25 mg tablet 25 mg PO DAILY PRN (Reason: dizziness) Qty: 90 3RF ondansetron 4 mg tablet,disintegrating See Rx Instructions PO .COMPLEX PRN (Reason: nausea and vomiting) Qty: 90 3RF Rx Instructions: take 15 minutes before eating up to three times a day atorvastatin 20 mg tablet 40 mg PO DAILY tamsulosin 0.4 mg capsule 0.4 mg PO DAILY lisinopril 5 mg tablet 5 mg PO DAILY metoprolol tartrate 50 mg tablet 50 mg PO BID Label Comments: on hold in ED 05/14/22 levalbuterol tartrate 45 mcg/actuation HFA aerosol inhaler 2 puff inhalation Q4-6H PRN (Reason: shortness of breath) Qty: 15 12RF glycerin (adult) Suppository 1 supp UT QD-BID PRN (Reason: constipation) Qty: 25 0RF levofloxacin 500 mg tablet 500 mg PO DAILY Qty: 7 0RF Rx Instructions: x 7 days, started 05/07/22 ibuprofen 600 mg tablet 600 mg PO Q8H PRN (Reason: Pain (Scale Score 1-3)) methocarbamol 500 mg tablet 1,000 mg PO Q8HR PRN (Reason: muscle spasm ) Referrals: Shiva Tirado DO [Primary Care Provider] -
[2022-05-12 22:49] LABS: Alanine Aminotransferase 16 IU/L (<50); Albumin 3.9 g/dL (3.5-5.0); Albumin Globulin Ratio 0.9 (1.0-2.8); Alkaline Phosphatase 102 U/L (38-126); Aspartate Aminotransferase 44 IU/L (17-59); BUN Creatinine Ratio 44.2 (6-22); Bilirubin Total 0.4 mg/dL (0.2-1.3); Blood Urea Nitrogen 34 mg/dL (9-20); Calcium 9.4 mg/dL (8.4-10.2); Carbon Dioxide 19 mmol/L (22-32); Chloride 102 mmol/L (98-107); Creatine Kinase 24 U/L (55-170); Estimated Glomerular Filt Rate > 60 mL/min (>60); Globulin 4.3 g/dL (1.7-4.1); Glucose 117 mg/dL (80-110); HEMOLYSIS < 15 (0-50); Lipase 100 U/L (23-300); Magnesium 1.9 mg/dL (1.6-2.3); Potassium 3.5 mmol/L (3.4-5.1); Sodium 134 mmol/L (137-145); Total Protein 8.2 g/dL (6.3-8.2)
[2022-05-12 22:50] LABS: Lactate (Lactic Acid) 1.6 mmol/L (0.7-2.1)
[2022-05-12 22:51] VITALS: PULSE 97; RESP 27; O2SAT 97
[2022-05-12 23:00] VITALS: PULSE 90; RESP 23; O2SAT 97
[2022-05-12 23:00] LABS: Troponin I < 0.012 ng/mL (0.01-0.034)
[2022-05-12 23:30] VITALS: PULSE 88; RESP 20; O2SAT 99
[2022-05-12 23:31] LABS: COVID19 -Nasal RAPID Negative (Negative)
[2022-05-12 23:42] VITALS: BP 83/53; PULSE 85; RESP 21; O2SAT 99
[2022-05-12] MEDS: PIPERACILLIN/TAZO 4.5 GM in SODIUM CHLORIDE 0.9% 100 ML IV (23:43)
[2022-05-12] MEDS: PANTOPRAZOLE 40 MG VIAL IV (23:45)
[2022-05-12 23:51] VITALS: BP 82/52; PULSE 83; RESP 18; O2SAT 98
[2022-05-13] VITALS (97 sets, daily range): BP systolic 79–141; BP diastolic 45–64; PULSE 59–86; RESP 13–27; TEMP 36.6–36.9; O2SAT 91–100
[2022-05-13 00:48] LABS: Hematocrit 22.1 % (41-53); Hemoglobin 7.5 g/dL (13.5-17.5)
[2022-05-13] MEDS: HYDROCODONE/ACET 5/325 TABLET 2 TAB PO ×5 (02:32→22:24)
[2022-05-13] MEDS: ONDANSETRON 4 MG/2 ML INJ IV (09:13)
[2022-05-13] MEDS: MORPHINE 2 MG/ML INJ IV (10:15)
[2022-05-13] MEDS: SODIUM CHLORIDE 0.9% 1,000 ML 150 ML IV ×2 (10:15→17:54)
[2022-05-13 10:27] LABS: Hematocrit 26.5 % (41-53); Hemoglobin 9.2 g/dL (13.5-17.5)
--- NOTE | 2022-05-13 10:35 | PC.NURSE ---
Addendum entered by Enoc Parr CNA 05/13/22 17:27: [facility] Called back and added them to their waitlist. Original Note: Provider Dr. Portillo asked that I place this patient on any hospital transfer list available that performs vascular surgery. Below are the results of this work. [facility]: Patient added to their transfer list. [facility]: Patient added to their transfer list. [facility]: Patient added to their transfer list. [facility]: Transfer center declined to add this patient due to them not having available bed space. [facility]: Transfer center declined to add this patient due to them not having available bed space. [facility]: Transfer center declined to add this patient due to them not having available bed space. [facility]: Patient added to their transfer list. [facility]: Called and left a message asking them to return my call to place this patient on their list.
[2022-05-13 10:38] LABS: Lactate (Lactic Acid) 1.4 mmol/L (0.7-2.1)
[2022-05-13 13:46] LABS: Appearance Urine UA CLEAR; Bilirubin Urine UA NEGATIVE (NEGATIVE); Color Urine UA YELLOW; Glucose Urine UA NEGATIVE (Negative); Ketones Urine UA NEGATIVE (NEGATIVE); Leukocyte Esterase Urine UA TRACE (NEGATIVE); Nitrite Urine UA POSITIVE (Negative); Occult Blood Urine UA TRACE-LYSED (Negative); Protein Urine UA 1+ (Negative); Urobilinogen Urine UA 0.2 E.U./dL (0.2); pH Urine UA 6.5 (4.5-8.0)
[2022-05-13 13:57] LABS: Bacteria Urine None Seen; Culture Indicated Urine Specimen Cultured; RBC Urine None Seen (0-5/HPF); Squamous Epithelial Cell Urine 1-5 /HPF (0-5/HPF); WBC Urine 1-5/HPF (0-5/HPF)
--- NOTE | 2022-05-13 15:09 | P.CONS_ITS ---
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 Patient presented to the emergency room for 2 days of worsening dizziness and low blood pressures. He has also been experiencing some shortness of breath, palpitations during these episodes. Patient states that over the past couple of days he has become so debilitated that he has trouble getting up and out of bed and he cannot walk more than a couple of feet before becoming lightheaded, with blurring of his vision, and feeling like he is going to pass out. He came to the emergency room because it has slowly worsened to the point where he felt like he was going to . It is at home his blood pressures had been quite variable but were predominantly on the low side when dizzy. He notes some dark stools over the past week, but also reports constipation due to chronic opiate use. He denies any tarry stools or bright red blood per rectum. He denies any nausea, vomiting or hematemesis. He denies any fevers, chills, cough, orthopnea, lower extremity edema. He does endorse a 47 lb weight loss over the past few months. In the emergency room, he has been hypotensive but not tachycardic or febrile or hypoxic. Initial laboratory evaluation showed a hemoglobin of 8.5 which declined to 7.4. He was given 2 units of blood cells with improvement in his hemoglobin to 9.2. Chemistries are fairly unremarkable (does have a chronic hyponatremia which is at baseline). 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 Urinalysis had a few WBC squamous cells but was also nitrate positive and was reflex for culture. Given his presentation he had been started on piperacillin tazobactam in the emergency room. COVID-19 testing was negative. Hospitalist team was asked for appropriateness of admission to [facility] in this complex patient. Meds Home Medications and Allergies Home Medications Medication Instructions Recorded Confirmed Type aspirin 81 mg chewable tablet 81 mg PO QDAY ##0 08/28/12 05/13/22 History Disabled Parking Pass #1 ea 09/29/18 05/09/22 Rx nitroglycerin 0.4 mg sublingual 0.4 mg sublingual Q5-15M PRN Chest 03/16/19 05/13/22 History tablet (Nitrostat) Pain CMP [id number] ///3//2% See Rx Instructions .Route 08/31/20 05/09/22 Rx .COMPLEX #200 ea compound cream as below #180 grams 09/12/20 05/09/22 Rx acetazolamide 250 mg tablet 250 mg PO BID #60 tabs 12/06/20 05/09/22 Rx levalbuterol tartrate 45 2 puff inhalation Q4-6H PRN 02/05/21 05/13/22 Rx mcg/actuation aerosol inhaler shortness of breath #15 grams meclizine 25 mg tablet 25 mg PO DAILY PRN dizziness #90 05/15/21 05/13/22 Rx tabs albuterol sulfate 90 mcg/actuation See Rx Instructions .Route 12/30/21 05/13/22 Rx aerosol inhaler .COMPLEX #54 grams buprenorphine 20 mcg/hour weekly 1 patch transdermal QWEEK #4 ea 03/30/22 Rx transdermal patch ondansetron 4 mg disintegrating See Rx Instructions PO .COMPLEX 04/03/22 05/13/22 Rx tablet PRN nausea and vomiting #90 tabs fluticasone 250 mcg-salmeterol 50 See Rx Instructions .Route 04/07/22 05/13/22 Rx mcg/dose blistr powdr for .COMPLEX #180 blisters inhalation hydrocodone 5 mg-acetaminophen 325 See Rx Instructions PO Q4-6H PRN 05/01/22 05/13/22 Rx mg tablet pain #300 tabs glycerin (adult) 1 supp NC QD-BID PRN constipation 05/05/22 05/09/22 Rx #25 ea levofloxacin 500 mg tablet 500 mg PO DAILY #7 tabs 05/07/22 05/13/22 Rx atorvastatin 20 mg tablet 40 mg PO DAILY 05/09/22 05/13/22 History lisinopril 5 mg tablet 5 mg PO DAILY 05/09/22 05/09/22 History metoprolol tartrate 50 mg tablet 50 mg PO BID 05/09/22 05/09/22 History tamsulosin 0.4 mg capsule 0.4 mg PO DAILY 05/09/22 05/13/22 History ibuprofen 600 mg tablet 600 mg PO Q8H PRN Pain (Scale 05/13/22 05/13/22 History Score 1-3) Allergies Allergy/AdvReac Type Severity Reaction Status Date / Time propoxyphene [From Darvon] Allergy Verified 05/09/22 10:49 nitrofurantoin AdvReac Intermediate Verified 05/09/22 10:49 Review of Systems Review of Systems Narrative: All other systems reviewed with the patient and are negative unless otherwise stated. Exam Vital Signs (past 8 hours): - 05/13/22 07:15 05/13/22 07:15 05/13/22 07:30 Pulse Rate 60 Respiratory Rate 16 Blood Pressure 93/55 L 84/49 L Pulse Oximetry 97 05/13/22 07:30 05/13/22 07:45 05/13/22 07:45 Pulse Rate 62 65 Respiratory Rate 16 18 Blood Pressure 116/56 L Pulse Oximetry 97 98 05/13/22 08:00 05/13/22 08:00 05/13/22 08:15 Pulse Rate 66 Respiratory Rate 15 Blood Pressure 97/53 L 106/57 L Pulse Oximetry 97 05/13/22 08:15 05/13/22 08:30 05/13/22 08:30 Pulse Rate 67 67 Respiratory Rate 17 15 Blood Pressure 108/58 L Pulse Oximetry 97 98 05/13/22 08:45 05/13/22 08:45 05/13/22 09:00 Pulse Rate 66 Respiratory Rate 17 Blood Pressure 112/60 98/55 L Pulse Oximetry 98 05/13/22 09:00 05/13/22 09:15 05/13/22 09:15 Pulse Rate 65 72 Respiratory Rate 21 26 H Blood Pressure 100/59 L Pulse Oximetry 98 98 05/13/22 09:29 05/13/22 09:30 05/13/22 09:30 Pulse Rate 76 77 Respiratory Rate 21 18 Blood Pressure 99/57 L Pulse Oximetry 99 99 05/13/22 09:45 05/13/22 09:45 05/13/22 10:00 Pulse Rate 75 Respiratory Rate 18 Blood Pressure 94/53 L 87/48 L Pulse Oximetry 99 05/13/22 10:00 05/13/22 10:15 05/13/22 10:15 Pulse Rate 73 69 Respiratory Rate 17 15 Blood Pressure 99/54 L Pulse Oximetry 98 99 05/13/22 10:30 05/13/22 10:30 05/13/22 10:45 Pulse Rate 66 66 Respiratory Rate 19 15 Blood Pressure 84/46 L Pulse Oximetry 98 98 05/13/22 10:45 05/13/22 11:00 05/13/22 11:00 Pulse Rate 63 Respiratory Rate 18 Blood Pressure 103/55 L 97/53 L Pulse Oximetry 97 05/13/22 11:15 05/13/22 11:15 05/13/22 11:30 Pulse Rate 68 Respiratory Rate Blood Pressure 96/51 L 86/51 L Pulse Oximetry 97 05/13/22 11:30 05/13/22 11:45 05/13/22 11:45 Pulse Rate 64 62 Respiratory Rate 19 17 Blood Pressure 97/55 L Pulse Oximetry 97 98 05/13/22 12:00 05/13/22 12:00 05/13/22 12:15 Pulse Rate 64 Respiratory Rate 21 Blood Pressure 97/53 L 109/55 L Pulse Oximetry 98 05/13/22 12:15 05/13/22 12:30 05/13/22 12:30 Pulse Rate 59 L 59 L Respiratory Rate 16 18 Blood Pressure 101/54 L Pulse Oximetry 97 98 05/13/22 12:45 05/13/22 12:45 05/13/22 13:00 Pulse Rate 59 L Respiratory Rate 15 Blood Pressure 92/55 L 110/55 L Pulse Oximetry 98 05/13/22 13:00 05/13/22 13:15 05/13/22 13:15 Pulse Rate 59 L 62 Respiratory Rate 15 18 Blood Pressure 110/59 L Pulse Oximetry 97 98 05/13/22 13:30 05/13/22 13:30 05/13/22 13:45 Pulse Rate 75 77 Respiratory Rate 24 15 Blood Pressure 102/54 L Pulse Oximetry 95 91 05/13/22 13:45 05/13/22 14:00 05/13/22 14:00 Pulse Rate 74 Respiratory Rate 14 Blood Pressure 102/54 L 117/55 L Pulse Oximetry 92 Oxygen Delivery Method Room Air Narrative Exam Narrative: General:? Patient is a chronically ill appearing male in no acute distress. HEENT:? Normocephalic, atraumatic, extraocular muscles intact, oral pharynx is clear and mucous membranes are moist. Neck: supple and symmetric, trachea is midline, no cervical adenopathy. Negative for JVD Chest:? Normal AP diameter and contour without kyphoscoliosis, no tachypnea, equal chest rise bilaterally. Lungs:? CTA b/l no wheezing rhonchi or rales. Cardio:?RRR no m/r/g. Abdomen: S NT ND. No CVA tenderness. Musculoskeletal:? Muscle strength and tone are equal within normal limits, no deformity. Extremities: No edema or joint effusions. No cyanosis or clubbing. Skin:? Superficial skin ulceration R foot, about 2 cm in diameter without erythema or induration. Neuro:? Alert and orientated x3,? sensation to touch intact in all extremities, no gross deficits noted of cranial nerves. Psych:? Patient has a well-kept appearance, appropriate affect, mental status attitude thought context and judgment are appropriate for age. Objective ECG Impression: Normal sinus rhythm Possible Left atrial enlargement Labs Result Diagrams: 05/13/22 10:15 05/12/22 22:20 Labs: Laboratory Results - last 24 hr 05/12/22 05/12/22 05/12/22 22:20 22:20 22:20 WBC 10.4 RBC 2.43 L Hgb 8.4 L Hct 24.5 L MCV 101.1 H MCH 34.4 H MCHC 34.1 RDW 14.3 Plt Count 309 Neut % (Auto) 78.7 H Lymph % (Auto) 10.0 L [place] % (Auto) 10.7 Eos % (Auto) 0.4 L Baso % (Auto) 0.2 Neut # (Auto) 8200 H Lymph # (Auto) 1000 L [place] # (Auto) 1100 H Eos # (Auto) 0 Baso # (Auto) 0 Sodium 134 L Potassium 3.5 Chloride 102 Carbon Dioxide 19 L BUN 34 H Creatinine 0.77 Estimated GFR > 60 BUN/Creatinine Ratio 44.2 H Glucose 117 H Lactate 1.6 Calcium 9.4 Magnesium 1.9 Total Bilirubin 0.4 AST 44 ALT 16 Alkaline Phosphatase 102 Total Creatine Kinase 24 L CK-MB (CK-2) TNP CK-MB (CK-2) Rel Index TNP Troponin I < 0.012 Total Protein 8.2 Albumin 3.9 Globulin 4.3 H Albumin/Globulin Ratio 0.9 L Lipase 100 Urine Color Urine Appearance Urine pH Ur Specific [place] Urine Protein Urine Glucose (UA) Urine Ketones Urine Occult Blood Urine Nitrate Urine Bilirubin Urine Urobilinogen Ur Leukocyte Esterase Urine RBC Urine WBC Ur Squamous Epith Cells Urine Bacteria Ur Culture Indicated? SARS-CoV-2 (PCR) Blood Type Antibody Screen Crossmatch 05/12/22 05/12/22 05/13/22 22:33 23:00 00:40 WBC RBC Hgb 7.5 L Hct 22.1 L MCV MCH MCHC RDW Plt Count Neut % (Auto) Lymph % (Auto) [place] % (Auto) Eos % (Auto) Baso % (Auto) Neut # (Auto) Lymph # (Auto) [place] # (Auto) Eos # (Auto) Baso # (Auto) Sodium Potassium Chloride Carbon Dioxide BUN Creatinine Estimated GFR BUN/Creatinine Ratio Glucose Lactate Calcium Magnesium Total Bilirubin AST ALT Alkaline Phosphatase Total Creatine Kinase CK-MB (CK-2) CK-MB (CK-2) Rel Index Troponin I Total Protein Albumin Globulin Albumin/Globulin Ratio Lipase Urine Color Urine Appearance Urine pH Ur Specific [place] Urine Protein Urine Glucose (UA) Urine Ketones Urine Occult Blood Urine Nitrate Urine Bilirubin Urine Urobilinogen Ur Leukocyte Esterase Urine RBC Urine WBC Ur Squamous Epith Cells Urine Bacteria Ur Culture Indicated? SARS-CoV-2 (PCR) Negative Blood Type O Positive Antibody Screen Negative Crossmatch See Detail 05/13/22 05/13/22 05/13/22 10:15 10:15 13:42 WBC RBC Hgb 9.2 L Hct 26.5 L MCV MCH MCHC RDW Plt Count Neut % (Auto) Lymph % (Auto) [place] % (Auto) Eos % (Auto) Baso % (Auto) Neut # (Auto) Lymph # (Auto) [place] # (Auto) Eos # (Auto) Baso # (Auto) Sodium Potassium Chloride Carbon Dioxide BUN Creatinine Estimated GFR BUN/Creatinine Ratio Glucose Lactate 1.4 Calcium Magnesium Total Bilirubin AST ALT Alkaline Phosphatase Total Creatine Kinase CK-MB (CK-2) CK-MB (CK-2) Rel Index Troponin I Total Protein Albumin Globulin Albumin/Globulin Ratio Lipase Urine Color Yellow Urine Appearance Clear Urine pH 6.5 Ur Specific [place] 1.010 Urine Protein 1+ H Urine Glucose (UA) Negative Urine Ketones Negative Urine Occult Blood Trace-lysed Urine Nitrate Positive H Urine Bilirubin Negative Urine Urobilinogen 0.2 Ur Leukocyte Esterase Trace H Urine RBC None seen Urine WBC 1-5/hpf Ur Squamous Epith Cells 1-5 /hpf Urine Bacteria None seen Ur Culture Indicated? Specimen cultured SARS-CoV-2 (PCR) Blood Type Antibody Screen Crossmatch [facility] Medical History Atrial fibrillation (~1993) Bilateral lower extremity edema Bladder cancer BPH (benign prostatic hyperplasia) Cervical somatic dysfunction Cervical spine disease Chronic neck pain Chronic, continuous use of opioids Coordination of complex care Coronary artery disease Counseling regarding advanced care planning and goals of care Counseling regarding end of life decision making Excessive cerumen in both ear canals Flushing GERD (gastroesophageal reflux disease) Hypertension Hypotension Idiopathic pulmonary fibrosis Iliotibial band syndrome, right leg Increased frequency of urination Increasing shortness of breath Macrocytosis Malaise and fatigue Menieres disease Muscular deconditioning Myocardial infarction (1978) Nausea Nausea alone Night sweats Pelvic somatic dysfunction Rib pain on left side Segmental and somatic dysfunction of abdomen and other regions Segmental and somatic dysfunction of lower extremity Segmental and somatic dysfunction of lumbar region Segmental and somatic dysfunction of rib cage Segmental and somatic dysfunction of sacral region Segmental and somatic dysfunction of thoracic region Somatic dysfunction of lower extremity Stress Therapeutic opioid induced constipation Thoracic aortic aneurysm Tremor Wound, open, foot Surgical History History of abdominal aortic aneurysm repair (~2006) Hx of cervical discectomy Hx of coronary artery bypass graft (~1980) Hx of laminectomy (~04/2016) Hx of transurethral resection of prostate S/P carotid endarterectomy (~1990) Family History Father No problems noted. Mother No problems noted. 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 Hospitalist team was asked for appropriateness of admission to [facility] in this complex patient. He remains symptomatic from what appears to be orthostatic hypotension. There are multiple possible etiologies of this orthostatic hypotension including an acute blood loss anemia, IVC syndrome, sepsis response, or malnutrition, or a combination of these factors. At this time, given the patient's complexity as discussed below, I continue to recommend transfer to a higher level facility at this time for further evaluation and definitive therapy. 1. 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 - patient continues to have symptomatic orthostatic hypotension. - concern is that this is from his IVC compression and may not improve without definitive management which may include the need for definitive oncologic management or stent placement not available at [facility]. - should this be from his acute blood loss anemia, which may or may not be from GI bleeding, I discussed with our surgery team here and endoscopy (EGD/c-scope) would not be able to be performed here given patient's IVC compression and would be best performed at a facility with more specialty assistance. - sepsis is less likely a cause at this time given patient's appearance, though UA was weakly positive for infection but remains on appropriate antibiotic therapy currently. CT did show multiple pulmonary nodules but no evidence of pneumonia. - continue to hold patient's home BP medications. 2. Metastatic cancer of unknown primary - recent skin biopsy consistent with melanoma, unclear what metastatic disease is at this time. Liver biopsy performed 05/08, results not available yet. - will likely need intervention for compression on IVC to resolve symptoms, which is not available at [facility]. - continue home pain control, appears adequate based on initial evaluation. 3. acute blood loss anemia, possible GI bleeding. - s/p 2 U PRBC transfusion for possible sypmtomatic anemia, with mild imp rovement in blood pressure but remains orthostatic. - heme positive stool per ER report. - discussed with general surgery here (Dr. Cardenas) and given IVC compression patient would not be a candidate for anesthesia here for possible EGD or colonoscopy. - can continue PPI IV vs PO BID - transfuse for Hg <7 4. Acute cystitis, possibly on chronic - can continue zosyn, but ceftriaxone 1g q24 hours should suffice. - UA is borderline with 1-5 WBC, but nitrate positive and many bacteria. Was reflexed for culture. He has a chronic indwelling catheter as well. Would recommend replacement if it hasn't already been replaced. 5. HTN - continue to hold patient's home BP medications I have utilized all available immediate resources to obtain, update, or review the patient's current medications. Code: Full, surrogate decision maker is his daughter / MPOA. Hospitalist team is available for assistance with management in this medically complex patient while he awaits transfer to another facility. Time Spent With Patient Critical Care time: I spent a total of [] minutes of critical care time on this patient's care today; this time is exclusive of procedural time.
--- NOTE | 2022-05-13 16:29 | PC.NURSE ---
Patient sat up in bed and was C/O dizziness and lightheaded while sitting. Checked patients BP while sitting 115/55 p 76. Patient stood and BP dropped to 96/46 and pulse 84 stated feeling like he might fall over. Patient back in bed
--- NOTE | 2022-05-13 17:27 | PC.NURSE ---
Dr. Portillo informed me that the transfer diagnosis and treatment had changed. I informed the accepting hospitals. [facility] and [facility] removed them from their list stating that he needs to go to [facility] where he is established as an oncology patient. I placed him on the transfer list for [facility]. I updated [facility] who have updated is case for radiation oncology consult.
[2022-05-14] VITALS (34 sets, daily range): BP systolic 94–149; BP diastolic 42–77; PULSE 51–94; RESP 9–20; TEMP 36.5; O2SAT 94–100
[2022-05-14] MEDS: HYDROCODONE/ACET 5/325 TABLET 2 TAB PO ×3 (03:20→12:17)
--- NOTE | 2022-05-14 04:27 | PC.NURSE ---
He just stated his back pain was getting better after placing him on a med surg bed.
[2022-05-14 08:52] LABS: Add Manual Diff / Slide Review NO; Basophils Absolute Auto 0 /uL (0-100); Basophils Percent Auto 0.7 % (0-2); Eosinophils Absolute Auto 100 /uL (0-450); Hematocrit 25.8 % (41-53); Hemoglobin 8.8 g/dL (13.5-17.5); Lymphocytes Absolute Auto 600 /uL (1100-4500); Lymphocytes Percent Auto 10.7 % (25-40); Mean Corpuscular HGB Conc 33.9 % (30-36); Mean Corpuscular Volume 97.3 fL (80-100); Monocytes Absolute Auto 800 /uL (0-900); Monocytes Percent Auto 14.1 % (3-14); Neutrophils Absolute Auto 4200 /uL (1500-7000); Neutrophils Percent Auto 72.5 % (50-75); Platelet Count 220 X10^3/uL (150-400); Red Blood Cell Count 2.66 X10^6/uL (4.5-5.9); Red Cell Distribution Width 18.2 % (11.6-14.8); White Blood Cell Count 5.8 X10^3/uL (4.5-11.0)
[2022-05-14 09:07] LABS: Alanine Aminotransferase 12 IU/L (<50); Albumin 2.9 g/dL (3.5-5.0); Albumin Globulin Ratio 0.8 (1.0-2.8); Alkaline Phosphatase 82 U/L (38-126); Aspartate Aminotransferase 35 IU/L (17-59); BUN Creatinine Ratio 30.2 (6-22); Bilirubin Total 0.6 mg/dL (0.2-1.3); Blood Urea Nitrogen 19 mg/dL (9-20); Calcium 8.4 mg/dL (8.4-10.2); Carbon Dioxide 23 mmol/L (22-32); Chloride 107 mmol/L (98-107); Estimated Glomerular Filt Rate > 60 mL/min (>60); Globulin 3.8 g/dL (1.7-4.1); Glucose 116 mg/dL (80-110); HEMOLYSIS < 15 (0-50); Potassium 4.2 mmol/L (3.4-5.1); Sodium 135 mmol/L (137-145); Total Protein 6.7 g/dL (6.3-8.2)
--- NOTE | 2022-05-14 09:14 | PC.NURSE ---
Spoke with daughter, she will bring buprenorphine patch for pt.
--- NOTE | 2022-05-14 09:18 | PC.NURSE ---
Wound care nurse arrived in ED to change foot dressing on pt. Pt has missed his last two wound care appointments.
[2022-05-14] MEDS: SODIUM CHLORIDE 0.9% 1,000 ML 150 ML IV (11:14)
[2022-05-14] MEDS: HYDROCORTISONE 100 MG/2 ML VIAL IV (11:16)
[2022-05-14] MEDS: levoFLOXacin 250 MG TABLET 500 MG PO (13:15)
== END 2022-05-14 14:45 | disposition short-term general hospital (02) ==
PROVIDERS: Emergency Medicine; Emergency Provider Emergency Medicine; PCP Family Medicine
DX: I87.1 Compression of vein (principal); I95.9 Hypotension, unspecified; D64.9 Anemia, unspecified
CPT/HCPCS: 36415; 36430; 71260; 74177; 80053; 81001; 82550; 83605; 83690; 83735; 84484; 85014; 85018; 85025; 86850; 86900; 86901; 87040; 87086; 87635; 93005; 96361; 96365; 96375; 99285; 99291; C9803; P9016; C9113; J1720; J2270; J2405; J2543; Q9967